=== PATIENT | female | born 1965 | race Caucasian/White ===

== ENCOUNTER 2018-10-07 13:42 | Outpatient (REF) | payer SELFPAY | END 2018-10-07 14:02 | LOC: LBN 13:42 | PROVIDERS: PCP Neurological Surgery; Visit Provider Family Medicine | DX: R41.82 Altered mental status, unspecified (principal) | CPT/HCPCS: 80048; 80164; 82140; 83605; 84443 ==

== ENCOUNTER 2018-10-07 13:45 | Emergency (ER) | payer MEDICARE, MEDICAID, SELFPAY ==
[2018-10-07] VITALS (27 sets, daily range): BP systolic 68–123; BP diastolic 55–109; PULSE 77–90; RESP 13–34; TEMP 36.8–37; O2SAT 94–100
--- NOTE | 2018-10-07 14:01 | ED.GENADUL_ITS ---
Discharge Plan Disposition Patient Disposition: SNF (LEVEL 1) [facility] Condition: Improving Discharge Details Chief Complaint: RespSymp Clinical Impression: Acute exacerbation of CHF (congestive heart failure) Primary Care Provider: ZHANG MORA I ED Provider: Shayy Atkinson [place] Meds and New Rx's Prescriptions: Continued atorvastatin 40 mg Tablet 40 mg PO DAILY RF: 0 clozapine 100 mg Tablet 100 mg PO DAILY RF: 0 levetiracetam 500 mg Tablet 500 mg PO BID RF: 0 levothyroxine 150 mcg Tablet 150 mcg PO DAILY RF: 0 esomeprazole magnesium [Nexium] 20 mg Capsule,Delayed Release(Dr/Ec) 20 mg PO DAILY RF: 0 CertaVite Senior-Antioxidant 0.4-300-250 mg-mcg-mcg Tablet 1 tab PO DAILY RF: 0 ferrous gluconate 324 mg (38 mg iron) Tablet 324 mg PO BID RF: 0 torsemide 20 mg Tablet 20 mg PO DAILY PRNRF: 0 trazodone 50 mg Tablet 50 mg PO QHS RF: 0 olanzapine 2.5 mg Tablet 2.5 mg PO BID RF: 0 metformin 1,000 mg Tablet 1,000 mg PO BID RF: 0 gabapentin 100 mg Capsule 100 mg PO TID RF: 0 nicotine 7 mg/24 hr Patch 24 Hour 1 patch transdermal DAILY RF: 0 clozapine 50 mg Tablet 250 mg PO DAILY RF: 0 Combivent Respimat 20-100 mcg/actuation Mist 1 puff INHALATION Q6H PRNRF: 0 magnesium oxide 400 mg magnesium Tablet 400 mg PO TID RF: 0 Discharge Instructions Instructions: Heart Failure (ED) Additional Instructions: Ms. Shook was given IV Lasix here, feels much improved. Please continue with the Torsemide as previously prescribed. No evidence of infection at this point. CT of head and chest x-ray without acute abnormality. If she develops fever s/chills, pain, shortness of breath, chest pain or other new/worsening symptoms please seek care urgently once again. Please follow up with primary care within the next week for reevaluation. Referrals: ZHANG MORA I [Primary Care Provider] - Discharge Data Discharge Date/Time-TO BE ENTERED AT DEPARTURE: 10/07/18 17:50 Medical Decision Making Patient is a 53-year-old female presenting today with chief complaint of lethargy and shortness of breath. Patient denies recent illness. No fevers/chills, no cough. She states she feels SOB at this time. Denies CP. Was not intubated per her report during recent admission. On exam, patient appears fatigued. She is easily arousable and appropriate with questioning about when not speaking with her, she is closing her eyes. She does report that she feels fatigued. Patient is known to be tachypneic with respiratory rate of 30. She does not sound wet on exam. Much of this seems to be upper respiratory. Patient is unable to mount a good cough, I will have respiratory evaluate her. Interestingly, when the patient awakes, she is requesting a sandwich and to have word games printed off for her to play. She is noted to have bilateral lower extremity edema. Patient states that this edema has come and gone for some time. Patient was recently admitted for intracranial bleed requiring surgical intervention. [facility] being discharged from [facility]. Patient was discharged on Keppra. Neuro exam is intact at this time. Patient is alert and oriented x4. Concern for possible CHF, pneumonia, possible worsening or change in subdural hematoma. Plan for head CT, chest XR, laboratory evaluation. Glucse checked, elevated at Spoke with radiologist who advises that there is no acute abnormality on head CT, chest XR without acute abnormality. Labs reviewed. No leukocytosis, patient is not anemic. BUN elevated at 21. Gluc ose 222. BNP elevated at 4711, no previous for comparison. TSH elevated at 4.62. Free T4 normal. Respiratory evaluated the patient, used Acapella with good results. Patient was able to cough and clear secretions. Patient was diuresed with 40 of Lasix. Patient did have furosemide ordered as needed for lower extremity edema but this was not given at [facility]. Patient is feeling much improved. Respiratory rate is down to 24. Continues to maintain her oxygen saturations. Patient is now feeling much improved and requesting discharge. Eating and drinking in the department. REviewed recent note from [facility] 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 Patient has had no known seizures, did not appear postictal. She is now walking with minimal assistance, interactive, joking and smiling. Unclear as to what may have caused this. Patient reports that she was just tired. She is diuresing well. Rhonchi has cleared. She is feeling much improved and is not SOB. Patient will be sent back to [facility] requesting discharge back to them at this time. Wants to eat and play games. She has Torsemide PRN already ordered, nursing staff will continue with this as previously prescribed. I did speak with the AMPLIFIER MECHANIC covering the [facility] at [facility]. We did discuss today's presentation. Discussed possible differential diagnoses. Patient did just report feeling fatigued and that she was not ready to get out of bed. This may have been the source of her reported lethargic state. Again, no evidence of seizure. No advancing subdural. No evidence of electrolyte abnormality. No evidence of infection. Nurse practitioner plans to place the furosemide as a daily medication instead of a PRN. Advise close follow-up. We discussed new/worsening symptoms when to seek care urgently once again. All the patient's questions and concerns were addressed and she is in agreement this plan HPI General Mode of arrival: EMS . Date/Time Provider Initiated Documentation: 10/07/18 13:47 . Limitations to Documentation: no limitations (patient lethargic but able to answer questions when prompted) . Information obtained by: patient, EMS and RN notes reviewed . HPI Narrative: Patient is a 53 year old female, brought in via EMS from [facility] with c/c of rhonchi, dyspnea and lethargy that began this AM. Patient recently admitted to [facility] after sufferring traumatic subdural hemorrhage with LOC. Patient was treated at [facility], did not require surgical intervention. 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 At this time, patient feels SOB. She denies fevers/chills. Denies cough. No CP. Denies pain anywhere at this time. Is fatigued. No GI upset. Denies RENEE. Related Data Home Medications Medication Instructions Recorded Confirmed CertaVite Senior-Antioxidant 1 tab PO DAILY 10/07/18 10/07/18 Combivent Respimat 1 puff INHALATION Q6H PRN 10/07/18 10/07/18 atorvastatin 40 mg PO DAILY 10/07/18 10/07/18 clozapine 100 mg PO DAILY 10/07/18 10/07/18 clozapine 250 mg PO DAILY 10/07/18 10/07/18 esomeprazole magnesium [Nexium] 20 mg PO DAILY 10/07/18 10/07/18 ferrous gluconate 324 mg PO BID 10/07/18 10/07/18 gabapentin 100 mg PO TID 10/07/18 10/07/18 levetiracetam 500 mg PO BID 10/07/18 10/07/18 levothyroxine 150 mcg PO DAILY 10/07/18 10/07/18 magnesium oxide 400 mg PO TID 10/07/18 10/07/18 metformin 1,000 mg PO BID 10/07/18 10/07/18 nicotine 1 patch TRANSDERMAL DAILY 10/07/18 10/07/18 olanzapine 2.5 mg PO BID 10/07/18 10/07/18 torsemide 20 mg PO DAILY PRN 10/07/18 10/07/18 trazodone 50 mg PO QHS 10/07/18 10/07/18 General Stated Complaint: RespSymp DIONE: 3 Review of Systems Constitutional Reports as per HPI, Denies chills, Reports fatigue, Denies fever(s), Denies headache(s), Reports lethargy and Denies poor appetite Eyes Denies change in vision ENT Denies dizziness and Denies headache(s) Cardiovascular Reports as per HPI, Denies chest pain, Denies chest pain at rest, Denies chest pain with activity, Denies syncope, Reports pedal edema (BLE edema), Reports dyspnea and Reports dyspnea on exertion Respiratory Reports as per HPI, Reports chest congestion, Denies cough, Denies hemoptysis, Denies pain on inspiration, Denies pain with cough, Reports dyspnea, Reports dyspnea on exertion and Denies wheezing Gastrointestinal Reports as per HPI, Denies abdominal pain, Denies diarrhea, Denies nausea and Denies vomiting Musculoskeletal Reports as per HPI and Denies back pain Integumentary/Breasts Reports as per HPI and Denies rash Neurologic Reports as per HPI, Denies dizziness, Denies syncope and Denies headache(s) Endocrine Reports fatigue Allergic/Immunologic Denies wheezing PFSH Social History Do you feel safe at home: Yes Do you feel safe in your relationship?: Yes Exam Const General: cooperative, comfortable, no acute distress, well developed and ill appearing acutely (patient is audibly rhonchorous) Nutritional Appearance: well nourished and overweight Orientation: alert, awake and oriented x3 HENMT Head: normal to inspection Ears: hearing grossly normal bilaterally Mouth: moist mucous membranes Chest Chest: normal inspection of the chest, normal palpation of entire chest wall and no crepitus Resp Effort & Inspection: normal respiratory effort, able to speak in complete sentences and no respiratory distress Auscultation: no rales, rhonchi (diffuse) and no wheezes Cardio Rate: regular rate Rhythm: regular rhythm Heart Sounds: S1 normal and S2 normal GI Inspection: normal to inspection, no edema, non-distended and obesity Palpation: soft, no hepatosplenomegaly, not firm, no guarding, not rigid and no ntender Auscultation: normal bowel sounds Back/Spine/Pelvis Back: no CVA tenderness Thoracic/Lumbar Spine: thoracic and lumbar spine normal to inspection Skin General skin exam: no rashes or lesions noted Trauma: no lacerations or abrasions Neuro General: alert, awake and oriented x3 Cognition: normal cognition Speech: speech normal Gait: normal gait Extrem General: normal to inspection, normal capillary refill, no calf tenderness and edema Laterality: bilateral (BLE 1+ nonpitting edema) Psych Appearance: grossly normal and disheveled Mental Status: mental status grossly normal Speech and Movement: speech and movement normal Course Vital Signs Temperature 37 C 10/07/18 13:41 Pulse 90 10/07/18 13:41 Respiratory Rate 30 H 10/07/18 13:41 Blood Pressure 115/73 10/07/18 13:41 Pulse Oximetry 99 10/07/18 13:41 Temperature 37 C 10/07/18 13:41 Temperature Source Skin 10/07/18 13:41 Pulse 90 10/07/18 13:41 Respiratory Rate 30 H 10/07/18 13:41 Respiratory Effort 10/07/18 13:57 Blood Pressure 115/73 10/07/18 13:41 Blood Pressure Position Sitting 10/07/18 13:41 Pulse Oximetry 99 10/07/18 13:41 Oxygen Delivery Method Room Air 10/07/18 13:41 Oxygen Flow Rate 0 10/07/18 13:41
--- NOTE | 2018-10-07 14:09 | DI.CT_ITS ---
SYMPTOMS/DIAGNOSIS: LETHARGIC, RECENT TRAUMATIC BRAIN INJURY CRANIAL CT: A noncontrast enhanced examination was performed. Moderate atrophic changes are demonstrated. There are regions of diminished absorption in the frontoparietal white matter consistent with small vessel disease. There is no evidence of an intra/extra-axial hemorrhage or mass. The ventricles are intact. There is no evidence of a skull fracture. Mucoperiosteal thickening is noted in the left maxillary antrum. The right maxillary antrum, ethmoid and frontal sinus as visualized appear intact. There is no evidence of a mastoid effusion. SUMMARY: There is no evidence of an acute intracranial abnormality. Incidental note is made of left maxillary sinusitis.
[2018-10-07 14:12] LABS: Abs Immature Grans 0.09 k/cumm (0.0-0.09); Absolute Basophil Count 0.08 k/cumm (0.0-0.2); Absolute Lymphocyte Count 2.62 k/cumm (1.2-3.4); Absolute Monocyte Count 0.68 k/cumm (0.11-0.7); Absolute Neutrophil Count 3.95 k/cumm (1.2-6.7); Basophils % 1.1; Immature Grans % 1.2; Lymphocytes % 35.3; Mean Corp. HGB Concentration 33.3 g/dL (32.0-36.0); Mean Corpuscular Hemoglobin 32.3 pg (27.0-33.0); Mean Corpuscular Volume 96.8 fL (80-95); Mean Platelet Volume 10.1 fL (8.0-11.0); Monocytes % 9.2; Neutrophils % 53.2; Platelet Count 140 x1000/uL (130-400); RBC 3.72 m/cumm (4.00-5.20); RBC Distribution Width 13.8 % (11.7-14.6); White Blood Cell Count 7.42 k/cumm (4.4-10.8)
[2018-10-07] MEDS: Furosemide 40 MG/4 ML VIAL IVP (14:14)
--- NOTE | 2018-10-07 14:32 | RESPIRATORY ---
Bs coarse upper airways but clear and very diminished bilat bases. Viberpep started x 5 breaths x 3 sets with good understanding. Weak non productive cough. RR 28-31, Sats on room air was 97%
[2018-10-07 14:39] LABS: ALT 25 U/L (12-78); AST 16 U/L (15-37); Albumin 2.8 g/dL (3.4-5.0); Alkaline Phosphatase 61 U/L (46-116); Anion Gap 9.9 mmol/L (3-11); BUN 21 mg/dL (7-18); Bilirubin, Total 0.2 mg/dL (0.2-1.0); CO2 27.1 mmol/L (21.0-32.0); CREATININE 1.01 mg/dL (0.55-1.02); Calcium 9.2 mg/dL (8.5-10.1); Chloride 104 mmol/L (98-107); Estimated GFR 57.34 (mL/min/1.73m2); Glucose 222 mg/dL (70-100); NT-proBNP 4711 pg/mL; Potassium 4.7 mmol/L (3.5-5.1); Sodium 141 mmol/L (136-145); Total Protein 7.2 g/dL (6.4-8.2)
[2018-10-07 15:01] LABS: TSH 4.62 uIU/mL (0.36-3.74); VALPROIC ACID 77.6 ug/mL (50-100)
--- NOTE | 2018-10-07 15:21 | DI.RAD_ITS ---
SYMPTOMS/DIAGNOSIS: SHORTNESS OF BREATH AP AND LATERAL UPRIGHT CHEST: The heart is normal in size. The lungs are clear. The mediastinal structures and pleura appear intact. SUMMARY: Normal chest. No evidence of acute cardiopulmonary disease.
[2018-10-07 15:46] LABS: FREE T4 1.27 ng/dL (0.76-1.46)
== END 2018-10-07 17:50 | disposition skilled nursing facility (03) ==
PROVIDERS: Emergency Provider Physician Assistant; PCP Neurological Surgery
DX: I50.9 Heart failure, unspecified (principal)
CPT/HCPCS: 36415; 36416; 80053; 82962; 93005; 96374; 99285; 70450; 71046; 80164; 83880; 84439; 84443; 85025; 93010; J1940

== ENCOUNTER 2018-10-11 11:33 | Outpatient (REF) | payer MEDICARE, MEDICAID, SELFPAY ==
[2018-10-11 13:53] LABS: Anion Gap 10.1 mmol/L (3-11); BUN 17 mg/dL (7-18); CO2 28.9 mmol/L (21.0-32.0); CREATININE 1.09 mg/dL (0.55-1.02); Calcium 8.1 mg/dL (8.5-10.1); Chloride 103 mmol/L (98-107); Estimated GFR 52.51 (mL/min/1.73m2); Glucose 338 mg/dL (70-100); NT-proBNP 1113 pg/mL; Potassium 4.2 mmol/L (3.5-5.1); Sodium 142 mmol/L (136-145)
== END 2018-10-11 11:53 ==
LOC: LBN 11:33
PROVIDERS: PCP Neurological Surgery; Visit Provider Nurse Practitioner Gerontology
DX: I50.9 Heart failure, unspecified (principal)
CPT/HCPCS: 80048; 83880

== ENCOUNTER 2018-11-01 01:13 | Outpatient (CLI) | payer MEDICARE, MEDICAID, SELFPAY ==
--- NOTE | 2018-11-01 14:00 | DI.CT_ITS ---
SYMPTOM/DIAGNOSIS: F/U SUBDURAL HEMATOMA NONCONTRAST HEAD CT: Comparison is made with 10/07/18. Comparison is made with 09/21/18 from [facility] and 10/07/18 from [facility]. There is no evidence of a recurrent subdural hematoma. Atrophy and white matter changes and small vessel disease are again noted. The ventricular size is unchanged. No acute infarct or intraparenchymal hemorrhage or skull fracture is seen. There is again noted to be severe left maxillary sinus disease. IMPRESSION: No evidence of subdural hematoma or other acute abnormality.
== END 2018-11-01 01:33 ==
PROVIDERS: PCP Neurological Surgery; Visit Provider Physician Assistant Surgical
DX: S06.5X9D Traumatic subdural hemorrhage with loss of consciousness of unspecified duration, subsequent encounter (principal); R90.82 White matter disease, unspecified; J32.0 Chronic maxillary sinusitis; G31.89 Other specified degenerative diseases of nervous system
CPT/HCPCS: 70450

== ENCOUNTER 2018-11-16 14:17 | Outpatient (REF) | payer MEDICARE, MEDICAID, SELFPAY ==
[2018-11-16 15:06] LABS: Abs Immature Grans 0.03 k/cumm (0.0-0.09); Absolute Basophil Count 0.04 k/cumm (0.0-0.2); Absolute Eosinophil Count 0.02 k/cumm (0.0-0.7); Absolute Lymphocyte Count 3.34 k/cumm (1.2-3.4); Absolute Monocyte Count 0.53 k/cumm (0.11-0.7); Absolute Neutrophil Count 3.18 k/cumm (1.2-6.7); Basophils % 0.6; Eosinophils % 0.3; HCT 38.1 % (36.0-46.0); HGB 12.7 g/dL (12.0-15.5); Immature Grans % 0.4; Lymphocytes % 46.8; Mean Corp. HGB Concentration 33.3 g/dL (32.0-36.0); Mean Corpuscular Hemoglobin 32.1 pg (27.0-33.0); Mean Corpuscular Volume 96.2 fL (80-95); Mean Platelet Volume 11.6 fL (8.0-11.0); Monocytes % 7.4; Neutrophils % 44.5; Platelet Count 153 x1000/uL (130-400); RBC 3.96 m/cumm (4.00-5.20); RBC Distribution Width 13.1 % (11.7-14.6); White Blood Cell Count 7.14 k/cumm (4.4-10.8)
== END 2018-11-16 14:37 ==
LOC: LBN 14:17
PROVIDERS: PCP Neurological Surgery; Visit Provider Nurse Practitioner Gerontology
DX: I50.9 Heart failure, unspecified (principal)
CPT/HCPCS: 85025

== ENCOUNTER 2018-12-30 09:34 | Outpatient (REF) | payer MEDICARE, MEDICAID, SELFPAY ==
[2018-12-30 12:07] LABS: Abs Immature Grans 0.12 k/cumm (0.0-0.09); Absolute Basophil Count 0.04 k/cumm (0.0-0.2); Absolute Lymphocyte Count 3.43 k/cumm (1.2-3.4); Absolute Monocyte Count 0.62 k/cumm (0.11-0.7); Absolute Neutrophil Count 2.52 k/cumm (1.2-6.7); Basophils % 0.6; HCT 37.1 % (36.0-46.0); HGB 11.9 g/dL (12.0-15.5); Immature Grans % 1.8; Mean Corp. HGB Concentration 32.1 g/dL (32.0-36.0); Mean Corpuscular Volume 99.7 fL (80-95); Mean Platelet Volume 11.6 fL (8.0-11.0); Monocytes % 9.2; Neutrophils % 37.4; Platelet Count 226 x1000/uL (130-400); RBC 3.72 m/cumm (4.00-5.20); RBC Distribution Width 14.1 % (11.7-14.6); White Blood Cell Count 6.73 k/cumm (4.4-10.8)
[2018-12-30 13:56] LABS: ALT 39 U/L (14-59); AST 35 U/L (15-37); Alkaline Phosphatase 61 U/L (46-116); Anion Gap 9.3 mmol/L (3-11); BUN 36 mg/dL (7-18); Bilirubin, Total 0.4 mg/dL (0.2-1.0); CO2 31.7 mmol/L (21.0-32.0); CREATININE 1.08 mg/dL (0.55-1.02); Chloride 102 mmol/L (98-107); Estimated GFR 53.07 (mL/min/1.73m2); Glucose 111 mg/dL (70-100); Magnesium 2.1 mg/dL (1.8-2.4); Potassium 4.2 mmol/L (3.5-5.1); Sodium 143 mmol/L (136-145); Total Protein 6.8 g/dL (6.4-8.2)
[2018-12-30 14:03] LABS: Hemoglobin A1C 8.3 % (4.5-6.2)
== END 2018-12-30 09:54 ==
LOC: LBN 09:34
PROVIDERS: PCP Neurological Surgery; Visit Provider Family Medicine
DX: E11.9 Type 2 diabetes mellitus without complications (principal)
CPT/HCPCS: 80053; 83036; 83735; 85025

== ENCOUNTER 2019-02-06 14:03 | Emergency (ER) | payer MEDICARE, MEDICAID, SELFPAY ==
[2019-02-06] VITALS (15 sets, daily range): BP systolic 106–146; BP diastolic 57–71; PULSE 88–98; RESP 20–28; TEMP 36.2; O2SAT 95–99
--- NOTE | 2019-02-06 14:07 | W.ED.GENAD ---
Discharge Plan Disposition Patient Disposition: HOME Condition: Improving Discharge Details Chief Complaint: HeadInjury Clinical Impression: Fall at halfway, Closed head injury, Abrasion of elbow, right, Neck pain, Back pain Primary Care Provider: Johnnie Clements I ED Provider: Kayla Bedolla Home Meds and New Rx's Prescriptions: New ibuprofen 600 mg tablet 600 mg PO Q6H PRN (Reason: pain) Qty: 20 RF: 0 Continued atorvastatin 40 mg Tablet 40 mg PO DAILY RF: 0 clozapine 100 mg Tablet 100 mg PO DAILY RF: 0 levetiracetam 500 mg Tablet 500 mg PO BID RF: 0 esomeprazole magnesium [Nexium] 20 mg Capsule,Delayed Release(Dr/Ec) 20 mg PO DAILY RF: 0 CertaVite Senior-Antioxidant 0.4-300-250 mg-mcg-mcg Tablet 1 tab PO DAILY RF: 0 ferrous gluconate 324 mg (38 mg iron) Tablet 324 mg PO BID RF: 0 torsemide 20 mg Tablet 40 mg PO DAILY PRNRF: 0 olanzapine 2.5 mg Tablet 2.5 mg PO BID RF: 0 metformin 1,000 mg Tablet 1,000 mg PO BID RF: 0 nicotine 7 mg/24 hr Patch 24 Hour 1 patch transdermal DAILY RF: 0 Combivent Respimat 20-100 mcg/actuation Mist 1 puff INHALATION Q6H PRNRF: 0 magnesium oxide 400 mg magnesium Tablet 400 mg PO TID RF: 0 levothyroxine 175 mcg Capsule 175 mcg PO DAILY AM RF: 0 Symbicort 160-4.5 mcg/actuation Hfa Aerosol Inhaler 2 puff INHALATION BID RF: 0 olanzapine 5 mg Tablet 5 mg PO QAM RF: 0 Lantus Solostar U-100 Insulin 100 unit/mL (3 mL) Insulin Pen 20 unit SUBCUT HS RF: 0 cholecalciferol (vitamin D3) [Vitamin D3] 50 mcg (2,000 unit) Capsule 50,000 unit PO DAILY RF: 0 nitroglycerin 0.4 mg Tablet, Sublingual 1 mg sublingual PRN PRNRF: 0 Discharge Instructions Instructions: Head Injury (ED), Contusion in Adults (ED), Neck Pain (ED) Additional Instructions: Take ibuprofen as needed and directed for pain. Apply ice to the affected area several times daily for 20 minutes at a time. All of your CAT scans were negative for any acute traumatic injuries. The CAT scan of your abdomen incidentally noted a left kidney stone with some narrowing of the ureter which is the tube that drains urine from the kidney to the bladder. You can follow-up with a urologist for further evaluation of this. Follow-up with the primary care doctor within the next week for reevaluation. Return to the emergency department if you develop any worsening or new concerning symptoms. Referrals: Joseph Alvarado MD [ [facility] STAFF PHYSICIAN] - Discharge Data Discharge Date/Time-TO BE ENTERED AT DEPARTURE: 02/06/19 17:18 Discharge Physician: Kayla Bedolla Medical Decision Making 53-year-old female with a history of COPD, hypothyroidism, diabetes, schizophrenia and subdural hematoma presents from the [facility] post fall with headache, neck pain, back and hip pain. Patient stated that she was attempting to transfer into a chair and misjudged her landing and fell hitting her back and head on the ground. Denies LOC or vomiting. She has diffuse positive review of systems. Main complaint is headache, neck pain, back pain, hip pain and right elbow pain. She has a superficial medial elbow abrasion otherwise no evidence of trauma on exam. Lungs clear. Abdomen soft and nondistended without rigidity or guarding. Patient complains of diffuse body pain. Moving all extremities without evidence of deformity. CT head/cervical spine/test/abdomen/pelvis/T and L-spine obtained and all negative for acute findings. CT abdomen noted left perinephric edema, left renal calculus and mild left hydronephrosis and hydroureter. Patient has been urinating normally. Patient has been ambulatory around the ED and admits to improvement in pain after ibuprofen. She is smiling and pleasant and talkative. Given referral for urology if she develops any change in urinary symptoms or flank or back pain. Requested a prescription for ibuprofen for the [place]. Advised to apply ice to the affected areas as needed. Allergy list notes an allergy to Tylenol but she states she has been able to tolerate this. She is advised to alternate Tylenol Motrin, follow-up with primary care doctor and return here with any concerns. Medical Records Medical records reviewed: Yes I reviewed the patient's medical records. Imaging Data Radiologic Study: Radiologist's impression: XR Right Elbow Exam date and time: 02/06/2019 3:09 PM Age: 53 years old Clinical history: Other: S/P fall, R/O acute fracture TECHNIQUE: Imaging protocol: XR Right elbow. Views: 3 or more views. COMPARISON: No relevant prior studies available. FINDINGS: Bones/joints: Normal. Soft tissues: Normal. IMPRESSION: No evidence for acute posttraumatic abnormality. CT Head Without Contrast Exam date and time: 02/06/2019 2:45 PM Age: 53 years old Clinical history: Other: S/P fall, R/O acute fracture TECHNIQUE: Imaging protocol: Computed tomography of the head without contrast. Radiation optimization: All CT scans at this facility use at least one of these dose optimization techniques: automated exposure control; mA and/or kV adjustment per patient size (includes targeted exams where dose is matched to clinical indication); or iterative reconstruction. COMPARISON: CT HEAD WO 11/01/2018 2:00 PM FINDINGS: Brain: No evidence for acute intracranial hemorrhage. Cerebral volume loss noted. Scattered areas of decreased attenuation in the deep periventricular white matter consistent with small vessel ischemic change. Ventricles: Normal. No ventriculomegaly. Bones/joints: Unremarkable. No acute fracture. Sinuses: There is dense opacification of the left maxillary and anterior left ethmoid sinus with left frontal sinus involvement and air-fluid formation. These sinus changes are new since previous exam. Mastoid air cells: Visualized mastoid air cells are well aerated. Soft tissues: Unremarkable. IMPRESSION: Senescent changes noted. No acute intracranial abnormality. CT Cervical Spine Without Contrast Exam date and time: 02/06/2019 2:45 PM Age: 53 years old Clinical history: Other: S/P fall, R/O acute fracture TECHNIQUE: Imaging protocol: Computed tomography images of the cervical spine without contrast. COMPARISON: CT HEAD WO 11/01/2018 2:00 PM FINDINGS: Vertebrae: No acute fracture. Normal alignment. Discs/Spinal canal/Neural foramina: No spinal stenosis. No neural foraminal narrowing. Soft tissues: Unremarkable. Lungs: Lung apices are normal. Vasculature: Bilateral calcified carotid plaque. IMPRESSION: No evidence for acute posttraumatic abnormality. CT Chest Without Contrast Exam date and time: 02/06/2019 2:54 PM Age: 53 years old Clinical history: Other: S/P fall, R/O acute abnormality, fracture, assess for thoracic compression/hip fracture TECHNIQUE: Imaging protocol: Computed tomography of the chest without contrast. COMPARISON: No relevant prior studies available. FINDINGS: Lungs: There is minimal lingular atelectasis. Pleural space: Unremarkable. No pneumothorax. No pleural effusion. Heart: Coronary artery calcification/stents noted. Aorta: Moderate atherosclerotic change present in the vasculature. Lymph nodes: Unremarkable. No enlarged lymph nodes. Bones/joints: Unremarkable. No acute fracture. Soft tissues: Unremarkable. IMPRESSION: No evidence for acute posttraumatic abnormality. CT Abdomen And Pelvis Without Contrast Exam date and time: 02/06/2019 2:54 PM Age: 53 years old Clinical history: Other: S/P fall, R/O acute abnormality, fracture, assess for thoracic compression/hip fracture TECHNIQUE: Imaging protocol: Computed tomography of the abdomen and pelvis without contrast. Radiation optimization: All CT scans at this facility use at least one of these dose optimization techniques: automated exposure control; mA and/or kV adjustment per patient size (includes targeted exams where dose is matched to clinical indication); or iterative reconstruction. COMPARISON: No relevant prior studies available. FINDINGS: Liver: Normal. No mass. Gallbladder and bile ducts: Gallbladder not well distended. Pancreas: Normal. No ductal dilation. Spleen: Normal. No splenomegaly. Adrenals: Normal. No mass. Kidneys and ureters: Moderate right renal atrophy. There is left perinephric edema, nonobstructing left renal calculus and mild left hydronephrosis and hydroureter. There is a ureteral transition at the iliac vessel crossing with mixed attenuation lesion series 3 image 93 measuring 3.1 cm. This appears to represent the left ovary. Stomach and bowel: Unremarkable. No obstruction. No mucosal thickening. Appendix: No evidence of appendicitis. Intraperitoneal space: Unremarkable. No free air. No significant fluid collection. Vasculature: Unremarkable. No abdominal aortic aneurysm. Lymph nodes: Unremarkable. No enlarged lymph nodes. Bladder: Unremarkable as visualized. Reproductive: See Kidneys And Ureters Finding. Bones/joints: There is bilateral spondylolysis L5-S1 with very minimal spondylolisthesis. Soft tissues: Unremarkable. IMPRESSION: 1. No evidence for acute posttraumatic abnormality. 2. Concern for distal left ureteral obstruction, uncertain etiology. CT Thoracic Spine Without Contrast Exam date and time: 02/06/2019 2:54 PM Age: 53 years old Clinical history: Other: Assess for thoracic compression/hip fracture; Additional info: S/P fall, R/O acute abnormality, fracture, assess for thoracic compression/hip fracture TECHNIQUE: Imaging protocol: Computed tomography images of the thoracic spine without contrast. COMPARISON: No relevant prior studies available. FINDINGS: Vertebrae: Mild spondylosis. No evidence for fracture. Vertebral body height appears well preserved. There is moderate anterior hypertrophic spurring. Discs/Spinal canal/Neural foramina: No spinal stenosis. Soft tissues: Unremarkable. IMPRESSION: Spondylosis without evidence for fracture. CT Lumbar Spine Without Contrast Exam date and time: 02/06/2019 2:54 PM Age: 53 years old Clinical history: Other: Assess for thoracic compression/hip fracture; Additional info: S/P fall, R/O acute abnormality, fracture, assess for thoracic compression/hip fracture TECHNIQUE: Imaging protocol: Computed tomography images of the lumbar spine without contrast. COMPARISON: No relevant prior studies available. FINDINGS: Vertebrae: There is bilateral spondylolysis at L5-S1 with very minimal spondylolisthesis. No evidence for acute posttraumatic abnormality. Discs/Spinal canal/Neural foramina: No spinal stenosis. No neural foraminal narrowing. Vasculature: Severe atherosclerotic changes noted in the vasculature. Soft tissues: Unremarkable. IMPRESSION: No evidence for acute posttraumatic abnormality. HPI General Mode of arrival: EMS. Date/Time Provider Initiated Documentation: 02/06/19 14:06. Limitations to Documentation: no limitations. Information obtained by: patient. History of Present Illness 53 year old F presents to the emergency department with the chief complaint of fall at halfway, Quality is described as aching, Patient started experiencing this hour(s) and it has been constant. No relieving factors improve symptom(s), No exacerbating factors reported . Patient notes headaches; denies confusion, chest pain, cough, diaphoresis, fever/chills, loss of appetite, malaise, nausea/vomiting, rash, seizure, shortness of breath, syncope and weakness. Patient did receive the following treatments prior to arrival, none Related Data Home Medications Medication Instructions Recorded Confirmed CertaVite Senior-Antioxidant 1 tab PO DAILY 10/07/18 02/06/19 Combivent Respimat 1 puff INHALATION Q6H PRN 10/07/18 02/06/19 atorvastatin 40 mg PO DAILY 10/07/18 02/06/19 clozapine 100 mg PO DAILY 10/07/18 02/06/19 esomeprazole magnesium [Nexium] 20 mg PO DAILY 10/07/18 02/06/19 ferrous gluconate 324 mg PO BID 10/07/18 02/06/19 levetiracetam 500 mg PO BID 10/07/18 02/06/19 magnesium oxide 400 mg PO TID 10/07/18 02/06/19 metformin 1,000 mg PO BID 10/07/18 02/06/19 nicotine 1 patch TRANSDERMAL DAILY 10/07/18 10/07/18 olanzapine 2.5 mg PO BID 10/07/18 02/06/19 torsemide 40 mg PO DAILY PRN 10/07/18 02/06/19 Lantus Solostar U-100 Insulin 20 unit SUBCUT HS 02/06/19 02/06/19 Symbicort 2 puff INHALATION BID 02/06/19 02/06/19 cholecalciferol (vitamin D3) 50,000 unit PO DAILY 02/06/19 02/06/19 [Vitamin D3] ibuprofen 600 mg PO Q6H PRN #20 tab 02/06/19 levothyroxine 175 mcg PO DAILY AM 02/06/19 02/06/19 nitroglycerin 1 mg SUBLINGUAL PRN PRN 02/06/19 02/06/19 olanzapine 5 mg PO QAM 02/06/19 02/06/19 Previous Rx's Medication Instructions Recorded ibuprofen 600 mg PO Q6H PRN #20 tab 02/06/19 Allergies Allergy/AdvReac Type Severity Reaction Status Date / Time acetaminophen [From Percocet] Allergy Unverified 01/13/19 13:10 lithium Allergy Unverified 01/13/19 13:10 oxycodone [From OxyContin] Allergy Unverified 01/13/19 13:10 Penicillins Allergy Unverified 01/13/19 13:10 pioglitazone Allergy Unverified 01/13/19 13:10 Sulfa (Sulfonamide Allergy Unverified 01/13/19 13:10 Antibiotics) tramadol Allergy Unverified 01/13/19 13:10 General DIONE: 3 Review of Systems All systems reviewed & are unremarkable except as noted in HPI and below Constitutional Constitutional: Reports as per HPI, Denies chills, Denies fever(s) and Reports headache(s) Eyes Eyes: Denies blurry vision ENT Ears, Nose, Mouth, and Throat: Denies dizziness, Reports headache(s), Reports neck pain, Denies sore throat and Denies throat swelling Cardiovascular Cardiovascular: Denies chest pain and Denies dyspnea Respiratory Respiratory: Denies cough and Denies dyspnea Gastrointestinal Gastrointestinal: Denies abdominal pain, Denies diarrhea and Denies vomiting Genitourinary Genitourinary: Denies hematuria and Denies dysuria Musculoskeletal Musculoskeletal: Reports back pain, Reports neck pain and Denies numbness Integumentary/Breasts Skin/Breast: Denies lesions and Denies rash Neurologic Neurologic: Denies dizziness, Reports headache(s), Denies focal weakness and Denies numbness Allergic/Immunologic Allergic/Immunologic: Denies throat swelling [facility] Medical History PATIENCE (acute kidney injury) (Acute) Altered gait (Acute) CAP (community acquired pneumonia) (Acute) Cystitis (Acute) Delirium (Acute) Falls frequently (Acute) GERD (gastroesophageal reflux disease) (Chronic) Heart murmur (Acute) Left bundle branch block (Acute) Muscle weakness (Acute) Pancreatitis (Chronic) Schizoaffective disorder (Acute) Surgical History H/O abdominal surgery (Acute) S/P thoracotomy (Acute) Social History Smoking/Tobacco Use Status: Former Tobacco Use Alcohol Intake: former Drug use: Never Do you feel safe at home: Yes Do you feel safe in your relationship?: Yes Exam Const General: cooperative and no acute distress Orientation: alert, awake and oriented x3 HENMT Head: normal to inspection Ears: hearing grossly normal bilaterally, external ears normal and TM's normal bilaterally General nose exam: external nose normal Face and sinus: normal facial exam Mouth: oral mucosae normal Teeth and gingiva: dentition normal Throat: posterior oropharynx normal Eyes General: appearance normal, both eyes and all related structures Eyelids: eyelids normal Pupils: PERRL EOM: EOM intact bilaterally Neck Neck: normal visual inspection Lymphatic: no lymphadenopathy noted Chest Chest: normal inspection of the chest Resp Effort & Inspection: normal respiratory effort and able to speak in complete sentences Auscultation: clear to auscultation bilaterally Cardio Rate: regular rate Rhythm: regular rhythm GI Inspection: normal to inspection Palpation: soft, not firm, no guarding, no hepatosplenomegaly, no masses and nontender Auscultation: normal bowel sounds Back/Spine/Pelvis Back: no CVA tenderness Cervical Spine: cervical spinal tenderness Thoracic/Lumbar Spine: thoracic spinal tenderness and lumbar spinal tenderness Pelvis: no pain with anterior-posterior compression Skin General skin exam: no rashes or lesions noted Neuro General: alert, awake, moves all extremities and no focal motor deficits Cranial Nerves: CN's II-XI intact bilaterally Cognition: normal cognition Speech: speech normal Gait: normal gait Motor: muscle tone normal throughout and strength 5/5 throughout Sensory Exam: no sensory deficits noted Extrem General: normal to inspection, full ROM and normal capillary refill Other: Superficial abrasion noted to right medial elbow and pain with range of motion of right elbow. No bony deformity. Pain in bilateral hips with range of motion. No obvious deformities noted. No pain with range of motion left upper extremity. Psych Appearance: grossly normal Mental Status: mental status grossly normal Speech and Movement: speech and movement normal Affect: normal affect Thought Process: normal
--- NOTE | 2019-02-06 14:43 | DI.CT_ITS ---
EXAM: CT HEAD CERVICAL SPINE WO CLINICAL HISTORY: s/p fall, r/o acute fracture TECHNIQUE: The exam was performed according to the usual protocol without contrast. COMPARISON: CT HEAD WO from 11/01/2018 FINDINGS: CT head: There is cerebral atrophy present. Areas of decreased attenuation are seen in the white matter most consistent with small vessel ischemic disease. No intracranial hemorrhage, midline shift or mass eff ect is present. Ventricles are intact. The basilar cisterns are patent. There has been worsening of the high-density material accumulation in the left maxillary sinus since the prior examination. The re is opacification of several left ethmoid air cells and the left frontal sinus. The remaining visu alized paranasal sinuses are clear as are the mastoid air cells. No evidence of a calvarial fracture is present. There is thickening of the wall of the left maxillary sinus suggesting chronic sinusitis . CT cervical spine: There is patient motion artifact. No acute fracture or subluxation is seen in the cervical spine. T he soft tissues are unremarkable. The lung apices are clear. There is atherosclerosis present. IMPRESSION: 1. No acute intracranial process. 2. Chronic sinusitis. 3. No acute fracture or subluxation in the cervical spine.
--- NOTE | 2019-02-06 14:55 | DI.CT_ITS ---
EXAM: CT CHEST/ABD/PEL WO, CT reconstructions of the thoracic and lumbar spine CLINICAL HISTORY: s/p fall, r/o acute abnormality, fracture TECHNIQUE: The exam was performed according to the usual protocol without contrast. COMPARISON: No exams were available for comparison FINDINGS: CT chest: The lack of IV contrast does limit evaluation of the mediastinum. There is atherosclerosis of the th oracic aorta. No aneurysmal dilatation is seen. The heart size is within normal limits. Coronary a rtery calcifications or stents are present. No significant pericardial effusion is present. No sign ificant thoracic adenopathy is seen. No pleural effusion or pneumothorax is present. The esophagus is unremarkable. The lungs are clear except for minimal atelectasis in the left lingula and left low er lobe. The tracheobronchial tree is unremarkable. CT reconstructions of the thoracic spine: There are degenerative changes seen throughout the thoracic spine. No acute fractures or subluxation s are present. The soft tissues are unremarkable. CT of the abdomen and pelvis: The lack of IV contrast does limit evaluation of the abdominal and pelvic organs. The unenhanced joelle er, spleen, pancreas, gallbladder, bile ducts and adrenal glands are unremarkable. There is signific ant right renal atrophy. There is compensatory hypertrophy of the left kidney. Nonobstructing stone s are seen in the left kidney. There is dilatation of the left renal collecting system to the level of the iliac crest. No definite obstructing stone is present. The urinary bladder is intact. The r eproductive organs are unremarkable. There is a large amount of stool throughout the colon suggesting constipation. No evidence of obstruction is seen. There is a normal appendix present. The abdominal aorta is of normal caliber. No aneurysmal dilatation is seen. No significant abdomina l or pelvic adenopathy, ascites or pneumoperitoneum is present. CT reconstructions of the lumbar spine: There are degenerative changes seen in the lumbar spine. There is L5 spondylolysis with minimal spon dylolisthesis of L5 on S1. No acute fracture or subluxation is seen. IMPRESSION: 1. No acute pulmonary process. 2. No acute fractures or subluxations in the thoracic spine. 3. No acute fractures or subluxations in the lumbar spine. 4. No evidence of acute abdominal or pelvic abnormality. Examination is limited due to lack of IV co ntrast. 5. Findings suspicious for left ureteral obstruction of uncertain etiology. Follow-up as clinically a ppropriate.
--- NOTE | 2019-02-06 15:03 | DI.RAD_ITS ---
EXAM: XR ELBOW RT COMPLETE INDICATION: s/p fall, r/o acute fracture. COMPARISON: No exams were available for comparison TECHNIQUE: 2D digital imaging was performed. FINDINGS: No acute fracture or dislocation is present. The soft tissues are unremarkable. There is a well cor ticated osseous density adjacent to the medial epicondyle. This likely reflects old injury. IMPRESSION: No acute fracture or dislocation.
--- NOTE | 2019-02-06 15:16 | DI.VRAD_ITS ---
PROCEDURE INFORMATION: Exam: XR Right Elbow Exam date and time: 02/06/2019 3:09 PM Age: 53 years old Clinical history: Other: S/P fall, R/O acute fracture TECHNIQUE: Imaging protocol: XR Right elbow. Views: 3 or more views. COMPARISON: No relevant prior studies available. FINDINGS: Bones/joints: Normal. Soft tissues: Normal. IMPRESSION: No evidence for acute posttraumatic abnormality. COMMENT: Preliminary interpretation is based on receipt of 3 image(s). A final report will be issued subsequently. Dictated and Authenticated by: Estephanie Salgado MD. Ordering:JOSE Garza MD
--- NOTE | 2019-02-06 15:20 | DI.VRAD_ITS ---
PROCEDURE INFORMATION: Exam: CT Head Without Contrast Exam date and time: 02/06/2019 2:45 PM Age: 53 years old Clinical history: Other: S/P fall, R/O acute fracture TECHNIQUE: Imaging protocol: Computed tomography of the head without contrast. Radiation optimization: All CT scans at this facility use at least one of these dose optimization techniques: automated exposure control; mA and/or kV adjustment per patient size (includes targeted exams where dose is matched to clinical indication); or iterative reconstruction. COMPARISON: CT HEAD WO 11/01/2018 2:00 PM FINDINGS: Brain: No evidence for acute intracranial hemorrhage. Cerebral volume loss noted. Scattered areas of decreased attenuation in the deep periventricular white matter consistent with small vessel ischemic change. Ventricles: Normal. No ventriculomegaly. Bones/joints: Unremarkable. No acute fracture. Sinuses: There is dense opacification of the left maxillary and anterior left ethmoid sinus with left frontal sinus involvement and air-fluid formation. These sinus changes are new since previous exam. Mastoid air cells: Visualized mastoid air cells are well aerated. Soft tissues: Unremarkable. IMPRESSION: Senescent changes noted. No acute intracranial abnormality. PROCEDURE INFORMATION: Exam: CT Cervical Spine Without Contrast Exam date and time: 02/06/2019 2:45 PM Age: 53 years old Clinical history: Other: S/P fall, R/O acute fracture TECHNIQUE: Imaging protocol: Computed tomography images of the cervical spine without contrast. COMPARISON: CT HEAD WO 11/01/2018 2:00 PM FINDINGS: Vertebrae: No acute fracture. Normal alignment. Discs/Spinal canal/Neural foramina: No spinal stenosis. No neural foraminal narrowing. Soft tissues: Unremarkable. Lungs: Lung apices are normal. Vasculature: Bilateral calcified carotid plaque. IMPRESSION: No evidence for acute posttraumatic abnormality. COMMENT: Preliminary interpretation is based on receipt of 2192 image(s). A final report will be issued subsequently. Dictated and Authenticated by: Estephanie Salgado MD. Ordering:JOSE Garza MD
--- NOTE | 2019-02-06 15:31 | DI.VRAD_ITS ---
PROCEDURE INFORMATION: Exam: CT Chest Without Contrast Exam date and time: 02/06/2019 2:54 PM Age: 53 years old Clinical history: Other: S/P fall, R/O acute abnormality, fracture, assess for thoracic compression/hip fracture TECHNIQUE: Imaging protocol: Computed tomography of the chest without contrast. COMPARISON: No relevant prior studies available. FINDINGS: Lungs: There is minimal lingular atelectasis. Pleural space: Unremarkable. No pneumothorax. No pleural effusion. Heart: Coronary artery calcification/stents noted. Aorta: Moderate atherosclerotic change present in the vasculature. Lymph nodes: Unremarkable. No enlarged lymph nodes. Bones/joints: Unremarkable. No acute fracture. Soft tissues: Unremarkable. IMPRESSION: No evidence for acute posttraumatic abnormality. PROCEDURE INFORMATION: Exam: CT Abdomen And Pelvis Without Contrast Exam date and time: 02/06/2019 2:54 PM Age: 53 years old Clinical history: Other: S/P fall, R/O acute abnormality, fracture, assess for thoracic compression/hip fracture TECHNIQUE: Imaging protocol: Computed tomography of the abdomen and pelvis without contrast. Radiation optimization: All CT scans at this facility use at least one of these dose optimization techniques: automated exposure control; mA and/or kV adjustment per patient size (includes targeted exams where dose is matched to clinical indication); or iterative reconstruction. COMPARISON: No relevant prior studies available. FINDINGS: Liver: Normal. No mass. Gallbladder and bile ducts: Gallbladder not well distended. Pancreas: Normal. No ductal dilation. Spleen: Normal. No splenomegaly. Adrenals: Normal. No mass. Kidneys and ureters: Moderate right renal atrophy. There is left perinephric edema, nonobstructing left renal calculus and mild left hydronephrosis and hydroureter. There is a ureteral transition at the iliac vessel crossing with mixed attenuation lesion series 3 image 93 measuring 3.1 cm. This appears to represent the left ovary. Stomach and bowel: Unremarkable. No obstruction. No mucosal thickening. Appendix: No evidence of appendicitis. Intraperitoneal space: Unremarkable. No free air. No significant fluid collection. Vasculature: Unremarkable. No abdominal aortic aneurysm. Lymph nodes: Unremarkable. No enlarged lymph nodes. Bladder: Unremarkable as visualized. Reproductive: See Kidneys And Ureters Finding. Bones/joints: There is bilateral spondylolysis L5-S1 with very minimal spondylolisthesis. Soft tissues: Unremarkable. IMPRESSION: 1. No evidence for acute posttraumatic abnormality. 2. Concern for distal left ureteral obstruction, uncertain etiology. COMMENT: Preliminary interpretation is based on receipt of 2305 image(s). A final report will be issued subsequently. Dictated and Authenticated by: Estephanie Salgado MD. Ordering:JOSE Garza MD
--- NOTE | 2019-02-06 15:34 | DI.VRAD_ITS ---
PROCEDURE INFORMATION: Exam: CT Thoracic Spine Without Contrast Exam date and time: 02/06/2019 2:54 PM Age: 53 years old Clinical history: Other: Assess for thoracic compression/hip fracture; Additional info: S/P fall, R/O acute abnormality, fracture, assess for thoracic compression/hip fracture TECHNIQUE: Imaging protocol: Computed tomography images of the thoracic spine without contrast. COMPARISON: No relevant prior studies available. FINDINGS: Vertebrae: Mild spondylosis. No evidence for fracture. Vertebral body height appears well preserved. There is moderate anterior hypertrophic spurring. Discs/Spinal canal/Neural foramina: No spinal stenosis. Soft tissues: Unremarkable. IMPRESSION: Spondylosis without evidence for fracture. PROCEDURE INFORMATION: Exam: CT Lumbar Spine Without Contrast Exam date and time: 02/06/2019 2:54 PM Age: 53 years old Clinical history: Other: Assess for thoracic compression/hip fracture; Additional info: S/P fall, R/O acute abnormality, fracture, assess for thoracic compression/hip fracture TECHNIQUE: Imaging protocol: Computed tomography images of the lumbar spine without contrast. COMPARISON: No relevant prior studies available. FINDINGS: Vertebrae: There is bilateral spondylolysis at L5-S1 with very minimal spondylolisthesis. No evidence for acute posttraumatic abnormality. Discs/Spinal canal/Neural foramina: No spinal stenosis. No neural foraminal narrowing. Vasculature: Severe atherosclerotic changes noted in the vasculature. Soft tissues: Unremarkable. IMPRESSION: No evidence for acute posttraumatic abnormality. COMMENT: Preliminary interpretation is based on receipt of 1926 image(s). A final report will be issued subsequently. Dictated and Authenticated by: Estephanie Salgado MD. Ordering:JOSE Garza MD
[2019-02-06] MEDS: Ibuprofen 600 MG TAB PO (15:47)
== END 2019-02-06 17:18 | disposition home or self-care (01) ==
PROVIDERS: Emergency Provider Physician Assistant; PCP Neurological Surgery
DX: S09.90XA Unspecified injury of head, initial encounter (principal); S50.311A Abrasion of right elbow, initial encounter; M54.2 Cervicalgia; M54.5 Low back pain; W18.30XA Fall on same level, unspecified, initial encounter; R93.422 Abnormal radiologic findings on diagnostic imaging of left kidney
CPT/HCPCS: 71250; 99284; 70450; 72125; 73080; 74176; 99283; L0172

== ENCOUNTER 2019-02-10 09:39 | Outpatient (REF) | payer MEDICARE, MEDICAID, SELFPAY ==
[2019-02-10 10:36] LABS: Abs Immature Grans 0.05 k/cumm (0.0-0.09); Absolute Basophil Count 0.04 k/cumm (0.0-0.2); Absolute Lymphocyte Count 3.62 k/cumm (1.2-3.4); Absolute Monocyte Count 0.52 k/cumm (0.11-0.7); Absolute Neutrophil Count 3.22 k/cumm (1.2-6.7); Basophils % 0.5; HCT 39.3 % (36.0-46.0); HGB 12.6 g/dL (12.0-15.5); Immature Grans % 0.7; Lymphocytes % 48.6; Mean Corp. HGB Concentration 32.1 g/dL (32.0-36.0); Mean Corpuscular Hemoglobin 31.6 pg (27.0-33.0); Mean Corpuscular Volume 98.5 fL (80-95); Mean Platelet Volume 10.5 fL (8.0-11.0); Neutrophils % 43.2; Platelet Count 190 x1000/uL (130-400); RBC 3.99 m/cumm (4.00-5.20); RBC Distribution Width 13.5 % (11.7-14.6); White Blood Cell Count 7.45 k/cumm (4.4-10.8)
== END 2019-02-10 09:59 ==
LOC: LBN 09:39
PROVIDERS: PCP Neurological Surgery; Visit Provider Nurse Practitioner Gerontology
DX: F25.9 Schizoaffective disorder, unspecified (principal); Z79.899 Other long term (current) drug therapy
CPT/HCPCS: 85025

== ENCOUNTER → 2019-02-22 13:01 | Outpatient (BNVA) | payer MEDICARE, MEDICAID, SELFPAY | PROVIDERS: PCP Neurological Surgery; Referring Provider Family Medicine; Visit Provider Psychiatry & Neurology Neurology | DX: G21.9 Secondary parkinsonism, unspecified (principal); R29.6 Repeated falls; R41.89 Other symptoms and signs involving cognitive functions and awareness; E11.40 Type 2 diabetes mellitus with diabetic neuropathy, unspecified | CPT/HCPCS: 99205 ==

== ENCOUNTER 2019-03-04 14:17 | Emergency (ER) | payer MEDICARE, MEDICAID, SELFPAY ==
[2019-03-04] VITALS (42 sets, daily range): BP systolic 103–158; BP diastolic 50–84; PULSE 75–99; RESP 16–28; TEMP 36.6; O2SAT 95–100
--- NOTE | 2019-03-04 14:21 | W.ED.GENAD ---
Discharge Plan Disposition Patient Disposition: HOME Condition: Good Discharge Details Chief Complaint: AMS/LOC Clinical Impression: Syncope, UTI (urinary tract infection) Primary Care Provider: Johnnie Clements I ED Provider: Kayla Bedolla Home Meds and New Rx's Prescriptions: New levofloxacin [Levaquin] 750 mg tablet 750 mg PO DAILY 5 Days Qty: 5 RF: 0 Continued atorvastatin 40 mg Tablet 40 mg PO DAILY RF: 0 levothyroxine 175 mcg Tablet 175 mcg PO DAILY RF: 0 clozapine 100 mg Tablet 100 mg PO DAILY RF: 0 Nicotrol 10 mg Cartridge 1 inh INHALATION 4-6XD PRNRF: 0 ergocalciferol (vitamin D2) [Vitamin D2] 1,250 mcg (50,000 unit) Capsule 50,000 unit PO DIRECTED RF: 0 CertaVite Senior-Antioxidant 0.4-300-250 mg-mcg-mcg Tablet 1 tab PO DAILY RF: 0 esomeprazole magnesium 20 mg Tablet,Delayed Release (Dr/Ec) 20 mg PO DAILY RF: 0 atorvastatin 40 mg Tablet 40 mg PO DAILY RF: 0 acetaminophen 325 mg Tablet 650 mg PO Q4H PRN PRNRF: 0 ipratropium-albuterol 0.5 mg-3 mg(2.5 mg base)/3 mL Solution For Nebulization 3 ml INHALATION QID PRNRF: 0 ipratropium-albuterol 0.5 mg-3 mg(2.5 mg base)/3 mL Solution For Nebulization 3 ml INHALATION BID RF: 0 Lantus U-100 Insulin 100 unit/mL Solution 20 unit SUBCUT HS RF: 0 torsemide 20 mg Tablet 40 mg PO DAILY RF: 0 clozapine 100 mg Tablet 1 mg PO DAILY RF: 0 levetiracetam 500 mg Tablet 500 mg PO BID RF: 0 olanzapine 5 mg Tablet 5 mg PO DAILY RF: 0 olanzapine [Zyprexa] 5 mg Tablet 5 mg PO DAILY RF: 0 naproxen 250 mg Tablet 250 mg PO BID PRNRF: 0 divalproex 500 mg Tablet,Delayed Release (Dr/Ec) 2,500 mg PO HS RF: 0 olanzapine 2.5 mg Tablet 2.5 mg PO DAILY RF: 0 magnesium oxide 400 mg (241.3 mg magnesium) Tablet 400 mg PO TID RF: 0 metformin 1,000 mg Tablet 1,000 mg PO BID RF: 0 nitroglycerin 0.4 mg Tablet, Sublingual 0.4 mg SUBLINGUAL Q5-15M PRNRF: 0 docusate sodium [Colace] 100 mg Capsule 100 mg PO BID PRNRF: 0 benztropine [Cogentin] 2 mg/2 mL Solution 0.5 mg IM BID RF: 0 CertaVite Senior-Antioxidant 0.4-300-250 mg-mcg-mcg Tablet 1 tab PO DAILY RF: 0 clozapine 50 mg Tablet 250 mg PO HS RF: 0 Symbicort 160-4.5 mcg/actuation Hfa Aerosol Inhaler 2 puff INHALATION BID RF: 0 ferrous gluconate 324 mg (37.5 mg iron) Tablet 324 mg PO BID RF: 0 Combivent Respimat 20-100 mcg/actuation Mist 1 puff INHALATION QID RF: 0 levothyroxine 175 mcg Tablet 175 mcg PO DAILY RF: 0 Nicotrol 10 mg Cartridge 1 inh INHALATION 4-8XD PRNRF: 0 esomeprazole magnesium [Nexium] 20 mg Capsule,Delayed Release(Dr/Ec) 20 mg PO DAILY RF: 0 Discharge Instructions Instructions: Urinary Tract Infection in Women (ED), Syncope (ED) Additional Instructions: Take the antibiotics until finished. Drink plenty fluids get plenty of rest. Follow-up with the primary care doctor within the next week for reevaluation. Return to the emergency department if you develop any worsening or new concerning symptoms. Discharge Data Discharge Physician: Kayla Bedolla Medical Decision Making 53-year-old female with a history of COPD, diabetes, GERD, schizoaffective disorder and bipolar disorder presents from the [facility] for syncopal episode. Patient denies any symptoms on arrival. Per EMS on arrival, EKG noted left bundle branch block as well as ST depression in lateral leads. EKG on arrival notes a rate of 88, sinus with left bundle branch block. No acute change from previous EKG. Upon my assessment, patient asking for coffee and something to eat. She appears nontoxic and is pleasant and talkative. She had a few episodes while in the ED in which she appears to close her eyes and trail off but this lasts a few seconds and then she opens her eyes and begins conversing again. She shakes her head from side to side during these episodes but at times opens 1 eye to look at you. She has no focal deficits. This does not appear consistent with acute stroke. She does have a history of seizures so unclear if this is a seizure and patient seems to be aware of when she is doing this. Do not see indication for CT head at this time. Labs and imaging reviewed. No white blood cell count. Potassium 3 and magnesium 1.2 which were repleted. Troponin negative. Urinalysis notes 20-50 WBCs. Will treat for UTI. Valproic acid level therapeutic. Keppra level is a send out. Chest x-ray negative. She was able to drink 4 cups of decaf coffee, a few popsicles, ate a full meal and ambulate around the room without any acute distress. She was also asking for another meal. She is asking when she can go back to the [facility]. 1 dose of Levaquin given here as well as prescription. Advised to follow-up with her primary care doctor for reevaluation and to return here at any time if worse. Medical Records Medical records reviewed: Yes I reviewed the patient's medical records. Imaging Data Radiologic Study: Radiologist's impression: XR PORTABLE CHEST AP CLINICAL HISTORY: s/p syncope, r/o acute disease TECHNIQUE: COMPARISON: No exams were available for comparison FINDINGS: Portable view of the chest was obtained. Cardiac size is within normal limits. There appear to be mild changes of pulmonary scarring. No focal consolidation. No pneumothorax. IMPRESSION: No evidence of acute process. Lab Data Lab results reviewed: Yes I reviewed the patient's lab results. Labs: 03/04/19 14:35 Urine - Reflex from Ua Urine Culture - Pending Laboratory Tests Range/Units 03/04/19 03/04/19 03/04/19 14:33 14:35 15:20 WBC (4.4-10.8) k/cumm RBC (4.00-5.20) m/cumm Hgb (12.0-15.5) g/dL Hct (36.0-46.0) % MCV (80-95) fL MCH (27.0-33.0) pg MCHC (32.0-36.0) g/dL RDW (11.7-14.6) % Plt Count (130-400) x1000/uL MPV (8.0-11.0) fL Immature Gran % Neutrophils % Lymphocytes % Monocytes % Eosinophils % Basophils % Absolute Neutrophils (1.2-6.7) k/cumm Absolute Lymphocytes (1.2-3.4) k/cumm Absolute Monocytes (0.11-0.7) k/cumm Absolute Eosinophils (0.0-0.7) k/cumm Absolute Basophils (0.0-0.2) k/cumm Sodium (136-145) mmol/L 144 Potassium (3.5-5.1) mmol/L 3.0 L Chloride (98-107) mmol/L 101 Carbon Dioxide (21.0-32.0) mmol/L 32.5 H Anion Gap (3-11) mmol/L 10.5 BUN (7-18) mg/dL 13 Creatinine (0.55-1.02) mg/dL 0.86 Estimated GFR/1.73 m2 (mL/min/1.73m2) >= 60.00 Glucose (74-106) mg/dL 77 Calcium (8.5-10.1) mg/dL 9.1 Magnesium (1.8-2.4) mg/dL 1.2 L Total Bilirubin (0.2-1.0) mg/dL 0.4 AST (15-37) U/L 46 H ALT (14-59) U/L 28 Alkaline Phosphatase (46-116) U/L 59 Troponin I (<0.06) ng/Ml < 0.05 Total Protein (6.4-8.2) g/dL 7.2 Albumin (3.4-5.0) g/dL 2.8 L Urine Color (Yellow) Yellow Urine Clarity (Clear) Clear Urine pH (5-8) 7.0 Ur Specific [place] (1.005-1.025) 1.015 Urine Protein (Negative) mg/dL Negative Urine Ketones (Negative) mg/dL Negative Urine Blood (Negative) Negative Urine Nitrite (Negative) Negative Urine Bilirubin (Negative) Negative Urine Urobilinogen (Up TO 0.2) EU/dL 0.2 Ur Leukocyte Esterase (Negative) Small H Urine RBC (0-2) HPF Negative Urine WBC (0-5) HPF 20-50 H Ur Epithelial Cells (Negative) HPF Rare Urine Crystals (Negative) HPF Negative Urine Bacteria (Negative) HPF Few Urine Casts (Negative) LPF 0-2 hyaline Urine Mucus (Negative) Negative Ur Culture Indicated? Yes Urine Glucose (Negative) mg/dL Negative Total Valproic Acid (50-100) ug/mL Double Strand DNA Ab Cancelled Range/Units 03/04/19 03/04/19 15:20 15:20 WBC (4.4-10.8) k/cumm 8.17 RBC (4.00-5.20) m/cumm 3.85 L Hgb (12.0-15.5) g/dL 12.3 Hct (36.0-46.0) % 37.0 MCV (80-95) fL 96.1 H MCH (27.0-33.0) pg 31.9 MCHC (32.0-36.0) g/dL 33.2 RDW (11.7-14.6) % 13.2 Plt Count (130-400) x1000/uL 170 MPV (8.0-11.0) fL 9.7 Immature Gran % 0.5 Neutrophils % 61.5 Lymphocytes % 25.7 Monocytes % 11.8 Eosinophils % 0.0 Basophils % 0.5 Absolute Neutrophils (1.2-6.7) k/cumm 5.03 Absolute Lymphocytes (1.2-3.4) k/cumm 2.10 Absolute Monocytes (0.11-0.7) k/cumm 0.96 H Absolute Eosinophils (0.0-0.7) k/cumm 0.00 Absolute Basophils (0.0-0.2) k/cumm 0.04 Sodium (136-145) mmol/L Potassium (3.5-5.1) mmol/L Chloride (98-107) mmol/L Carbon Dioxide (21.0-32.0) mmol/L Anion Gap (3-11) mmol/L BUN (7-18) mg/dL Creatinine (0.55-1.02) mg/dL Estimated GFR/1.73 m2 (mL/min/1.73m2) Glucose (74-106) mg/dL Calcium (8.5-10.1) mg/dL Magnesium (1.8-2.4) mg/dL Total Bilirubin (0.2-1.0) mg/dL AST (15-37) U/L ALT (14-59) U/L Alkaline Phosphatase (46-116) U/L Troponin I (<0.06) ng/Ml Total Protein (6.4-8.2) g/dL Albumin (3.4-5.0) g/dL Urine Color (Yellow) Urine Clarity (Clear) Urine pH (5-8) Ur Specific [place] (1.005-1.025) Urine Protein (Negative) mg/dL Urine Ketones (Negative) mg/dL Urine Blood (Negative) Urine Nitrite (Negative) Urine Bilirubin (Negative) Urine Urobilinogen (Up TO 0.2) EU/dL Ur Leukocyte Esterase (Negative) Urine RBC (0-2) HPF Urine WBC (0-5) HPF Ur Epithelial Cells (Negative) HPF Urine Crystals (Negative) HPF Urine Bacteria (Negative) HPF Urine Casts (Negative) LPF Urine Mucus (Negative) Ur Culture Indicated? Urine Glucose (Negative) mg/dL Total Valproic Acid (50-100) ug/mL 79.9 Double Strand DNA Ab ECG Data Attestation: I personally reviewed and interpreted this ECG (s) as follows: Interpretation: Rate of 88, sinus, left bundle branch block. NC 114. QTc 498. HPI General Mode of arrival: EMS. Date/Time Provider Initiated Documentation: 03/04/19 14:20. Limitations to Documentation: no limitations. Information obtained by: patient. HPI Narrative: Patient is a 53-year-old female with a history of COPD, diabetes, GERD, schizoaffective disorder and bipolar disorder who presented as a syncopal episode at the [facility] while sitting in a chair. Patient states she was sitting in the chair when she felt dizzy and states she passed out. She states this happens to her from time to time for several months. Patient denies any symptoms at present. She denies headache, chest pain, shortness of breath, abdominal pain, vomiting or diarrhea. Shortly after my evaluation, patient asked for a cup of coffee and something to eat and request to go back to the [facility]. Related Data Home Medications Medication Instructions Recorded Confirmed CertaVite Senior-Antioxidant 1 tab PO DAILY 03/04/19 03/04/19 CertaVite Senior-Antioxidant 1 tab PO DAILY 03/04/19 03/04/19 Combivent Respimat 1 puff INHALATION QID 03/04/19 03/04/19 Lantus U-100 Insulin 20 unit SUBCUT HS 03/04/19 03/04/19 Nicotrol 1 inh INHALATION 4-6XD PRN 03/04/19 03/04/19 Nicotrol 1 inh INHALATION 4-8XD PRN 03/04/19 03/04/19 Symbicort 2 puff INHALATION BID 03/04/19 03/04/19 acetaminophen 650 mg PO Q4H PRN PRN 03/04/19 03/04/19 atorvastatin 40 mg PO DAILY 03/04/19 03/04/19 atorvastatin 40 mg PO DAILY 03/04/19 03/04/19 benztropine [Cogentin] 0.5 mg IM BID 03/04/19 03/04/19 clozapine 1 mg PO DAILY 03/04/19 03/04/19 clozapine 100 mg PO DAILY 03/04/19 03/04/19 clozapine 250 mg PO HS 03/04/19 03/04/19 divalproex 2,500 mg PO HS 03/04/19 03/04/19 docusate sodium [Colace] 100 mg PO BID PRN 03/04/19 03/04/19 ergocalciferol (vitamin D2) 50,000 unit PO DIRECTED 03/04/19 03/04/19 [Vitamin D2] esomeprazole magnesium 20 mg PO DAILY 03/04/19 03/04/19 esomeprazole magnesium [Nexium] 20 mg PO DAILY 03/04/19 03/04/19 ferrous gluconate 324 mg PO BID 03/04/19 03/04/19 ipratropium-albuterol 3 ml INHALATION BID 03/04/19 03/04/19 ipratropium-albuterol 3 ml INHALATION QID PRN 03/04/19 03/04/19 levetiracetam 500 mg PO BID 03/04/19 03/04/19 levofloxacin [Levaquin] 750 mg PO DAILY 5 Days #5 tab 03/04/19 levothyroxine 175 mcg PO DAILY 03/04/19 03/04/19 levothyroxine 175 mcg PO DAILY 03/04/19 03/04/19 magnesium oxide 400 mg PO TID 03/04/19 03/04/19 metformin 1,000 mg PO BID 03/04/19 03/04/19 naproxen 250 mg PO BID PRN 03/04/19 03/04/19 nitroglycerin 0.4 mg SUBLINGUAL Q5-15M PRN 03/04/19 03/04/19 olanzapine 2.5 mg PO DAILY 03/04/19 03/04/19 olanzapine 5 mg PO DAILY 03/04/19 03/04/19 olanzapine [Zyprexa] 5 mg PO DAILY 03/04/19 03/04/19 torsemide 40 mg PO DAILY 03/04/19 03/04/19 Previous Rx's Medication Instructions Recorded levofloxacin [Levaquin] 750 mg PO DAILY 5 Days #5 tab 03/04/19 Allergies Allergy/AdvReac Type Severity Reaction Status Date / Time lithium Allergy Unknown Unverified 03/04/19 15:55 oxycodone [From OxyContin] Allergy Unknown Unverified 03/04/19 15:55 Penicillins Allergy Unknown Unverified 03/04/19 15:55 pioglitazone Allergy Unknown Unverified 03/04/19 15:55 prednisone Allergy Unknown Unverified 03/04/19 15:55 Sulfa (Sulfonamide Allergy Unknown Unverified 03/04/19 15:55 Antibiotics) tramadol Allergy Unknown Unverified 03/04/19 15:55 Review of Systems All systems reviewed & are unremarkable except as noted in HPI and below Constitutional Constitutional: Reports as per HPI, Denies chills and Denies fever(s) Eyes Eyes: Denies blurry vision ENT Ears, Nose, Mouth, and Throat: Denies dizziness, Denies sore throat and Denies throat swelling Cardiovascular Cardiovascular: Denies chest pain, Reports syncope and Denies dyspnea Respiratory Respiratory: Denies cough and Denies dyspnea Gastrointestinal Gastrointestinal: Denies abdominal pain, Denies diarrhea and Denies vomiting Genitourinary Genitourinary: Denies hematuria and Denies dysuria Musculoskeletal Musculoskeletal: Denies back pain and Denies numbness Integumentary/Breasts Skin/Breast: Denies lesions and Denies rash Neurologic Neurologic: Denies dizziness, Reports syncope, Denies focal weakness and Denies numbness Allergic/Immunologic Allergic/Immunologic: Denies throat swelling [facility] Medical History Acute kidney injury (Acute) 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) COPD (chronic obstructive pulmonary disease) (Chronic) Diabetes (Chronic) GERD (gastroesophageal reflux disease) (Chronic) Heart murmur (Acute) Hyperthyroidism (Chronic) Pancreatitis (Chronic) Schizoaffective disorder (Acute) Exam Const General: cooperative, healthy appearing and no acute distress HENOK Head: normal to inspection Face and sinus: normal facial exam Eyes General: appearance normal, both eyes and all related structures EOM: EOM intact bilaterally Neck Neck: normal visual inspection and No submandibular swelling Lymphatic: no lymphadenopathy noted Chest Chest: normal inspection of the chest and no tenderness Resp Effort & Inspection: normal respiratory effort and able to speak in complete sentences Auscultation: clear to auscultation bilaterally Cardio Rate: regular rate Rhythm: regular rhythm GI Inspection: normal to inspection Palpation: soft, not firm, not rigid and nontender Auscultation: normal bowel sounds Skin General skin exam: no rashes or lesions noted Neuro General: alert, awake, oriented x3 and moves all extremities Cranial Nerves: CN's II-XI intact bilaterally Cognition: normal cognition Speech: speech normal Motor: muscle tone normal throughout and strength 5/5 throughout Sensory Exam: no sensory deficits noted Extrem General: normal to inspection, full ROM, normal capillary refill, no calf tenderness bilaterally and no edema Psych Appearance: grossly normal Mental Status: mental status grossly normal Speech and Movement: speech and movement normal Affect: normal affect
[2019-03-04 14:48] LABS: Bilirubin Negative (Negative); Blood Negative (Negative); Clarity Clear (Clear); Glucose Negative (Negative); Ketones Negative (Negative); Leukocyte Esterase Small (Negative); Nitrite Negative (Negative); Specific Gravity 1.015 (1.005-1.025); Urobilinogen 0.2 EU/dL (Up TO 0.2)
[2019-03-04 14:56] LABS: Epithelial Cells Rare HPF (Negative); RBC Negative HPF (0-2); WBC 20-50 HPF (0-5)
[2019-03-04 14:57] LABS: Bacteria Few HPF (Negative); C & S Indicated? Yes; Casts 0-2 Hyaline LPF (Negative); Crystals Negative HPF (Negative); Mucus Negative (Negative)
--- NOTE | 2019-03-04 14:57 | DI.RAD_ITS ---
EXAM: XR PORTABLE CHEST AP CLINICAL HISTORY: s/p syncope, r/o acute disease TECHNIQUE: COMPARISON: No exams were available for comparison FINDINGS: Portable view of the chest was obtained. Cardiac size is within normal limits. There appear to be m ild changes of pulmonary scarring. No focal consolidation. No pneumothorax. IMPRESSION: No evidence of acute process.
[2019-03-04] MEDS: Normal Saline 500 ML IV (15:05)
[2019-03-04 15:32] LABS: Abs Immature Grans 0.04 k/cumm (0.0-0.09); Absolute Basophil Count 0.04 k/cumm (0.0-0.2); Absolute Monocyte Count 0.96 k/cumm (0.11-0.7); Absolute Neutrophil Count 5.03 k/cumm (1.2-6.7); Basophils % 0.5; HGB 12.3 g/dL (12.0-15.5); Immature Grans % 0.5; Lymphocytes % 25.7; Mean Corp. HGB Concentration 33.2 g/dL (32.0-36.0); Mean Corpuscular Hemoglobin 31.9 pg (27.0-33.0); Mean Corpuscular Volume 96.1 fL (80-95); Mean Platelet Volume 9.7 fL (8.0-11.0); Monocytes % 11.8; Neutrophils % 61.5; Platelet Count 170 x1000/uL (130-400); RBC 3.85 m/cumm (4.00-5.20); RBC Distribution Width 13.2 % (11.7-14.6); White Blood Cell Count 8.17 k/cumm (4.4-10.8)
[2019-03-04 15:49] LABS: ALT 28 U/L (14-59); AST 46 U/L (15-37); Albumin 2.8 g/dL (3.4-5.0); Alkaline Phosphatase 59 U/L (46-116); Anion Gap 10.5 mmol/L (3-11); BUN 13 mg/dL (7-18); Bilirubin, Total 0.4 mg/dL (0.2-1.0); CO2 32.5 mmol/L (21.0-32.0); CREATININE 0.86 mg/dL (0.55-1.02); Calcium 9.1 mg/dL (8.5-10.1); Chloride 101 mmol/L (98-107); Glucose 77 mg/dL (74-106); Magnesium 1.2 mg/dL (1.8-2.4); Sodium 144 mmol/L (136-145); Total Protein 7.2 g/dL (6.4-8.2)
[2019-03-04 15:53] LABS: Troponin I < 0.05 ng/Ml (<0.06)
[2019-03-04] MEDS: Potassium Chloride 20 MEQ TABCR 40 MEQ PO (16:05)
[2019-03-04 16:44] LABS: VALPROIC ACID 79.9 ug/mL (50-100)
[2019-03-04] MEDS: MAGNESIUM SULFATE 1 GM/100 ML BAG IVPB (16:48)
[2019-03-04] MEDS: levoFLOXacin 500 MG, levoFLOXacin 250 MG 750 MG PO (18:27)
[2019-03-06 12:31] LABS: Levetiracetam 31.1 mcg/mL
== END 2019-03-04 19:30 | disposition home or self-care (01) ==
PROVIDERS: Emergency Provider Physician Assistant; PCP Neurological Surgery
DX: R41.82 Altered mental status, unspecified (principal); R55 Syncope and collapse; N39.0 Urinary tract infection, site not specified; G40.909 Epilepsy, unspecified, not intractable, without status epilepticus; E87.6 Hypokalemia; E83.42 Hypomagnesemia; E11.9 Type 2 diabetes mellitus without complications; Z79.4 Long term (current) use of insulin; J44.9 Chronic obstructive pulmonary disease, unspecified
CPT/HCPCS: 36415; 80053; 93005; 96361; 96365; 99284; 71045; 80164; 80177; 81003; 81015; 83735; 84484; 85025; 86225; 87086; 93010; J3475

== ENCOUNTER 2019-03-14 09:31 | Outpatient (REF) | payer MEDICARE, MEDICAID, SELFPAY ==
[2019-03-14 10:58] LABS: Hemoglobin A1C 6.9 % (3.8-5.6)
[2019-03-14 14:32] LABS: Bilirubin Negative (Negative); Blood Negative (Negative); Clarity Clear (Clear); Glucose Negative (Negative); Ketones Negative (Negative); Leukocyte Esterase Negative (Negative); Nitrite Negative (Negative); Specific Gravity <= 1.005 (1.005-1.025); Urobilinogen 0.2 EU/dL (Up TO 0.2); pH 5.5 (5-8)
[2019-03-14 14:54] LABS: Abs Immature Grans 0.08 k/cumm (0.0-0.09); Absolute Basophil Count 0.05 k/cumm (0.0-0.2); Absolute Lymphocyte Count 2.81 k/cumm (1.2-3.4); Absolute Monocyte Count 0.99 k/cumm (0.11-0.7); Absolute Neutrophil Count 4.28 k/cumm (1.2-6.7); Basophils % 0.6; HCT 33.9 % (36.0-46.0); Lymphocytes % 34.2; Mean Corp. HGB Concentration 32.4 g/dL (32.0-36.0); Mean Corpuscular Hemoglobin 32.4 pg (27.0-33.0); Mean Corpuscular Volume 99.7 fL (80-95); Mean Platelet Volume 10.8 fL (8.0-11.0); Monocytes % 12.1; Neutrophils % 52.1; Platelet Count 172 x1000/uL (130-400); RBC Distribution Width 13.8 % (11.7-14.6); White Blood Cell Count 8.21 k/cumm (4.4-10.8)
== END 2019-03-14 09:51 ==
LOC: LBN 09:31
PROVIDERS: Nurse Practitioner Gerontology; PCP Family Medicine; Visit Provider Family Medicine
DX: R53.83 Other fatigue (principal); N39.0 Urinary tract infection, site not specified
CPT/HCPCS: 81003; 83036; 85025; 87086

== ENCOUNTER 2019-03-24 13:48 | Outpatient (REF) | payer MEDICARE, MEDICAID, SELFPAY ==
[2019-03-24 14:32] LABS: Bilirubin Negative (Negative); Blood Negative (Negative); Clarity Clear (Clear); Glucose Negative (Negative); Ketones Negative (Negative); Leukocyte Esterase Small (Negative); Nitrite Negative (Negative); Specific Gravity 1.015 (1.005-1.025); Urobilinogen 0.2 EU/dL (Up TO 0.2); pH 8.5 (5-8)
[2019-03-24 14:48] LABS: Bacteria Rare HPF (Negative); C & S Indicated? C&S Done As Ordered; Casts Negative LPF (Negative); Crystals Negative HPF (Negative); Epithelial Cells Few HPF (Negative); Mucus Negative (Negative); RBC Negative HPF (0-2)
== END 2019-03-24 14:08 ==
LOC: LBN 13:48
PROVIDERS: PCP Family Medicine; Visit Provider Nurse Practitioner Gerontology
DX: N39.0 Urinary tract infection, site not specified (principal)
CPT/HCPCS: 87077; 81003; 81015; 87086; 87186

== ENCOUNTER 2019-03-30 11:05 | Outpatient (REF) | payer MEDICARE, MEDICAID, SELFPAY ==
[2019-03-30 11:53] LABS: BUN 12 mg/dL (7-18); CREATININE 0.82 mg/dL (0.55-1.02); Calcium 8.9 mg/dL (8.5-10.1); Chloride 105 mmol/L (98-107); Glucose 88 mg/dL (74-106); Magnesium 1.6 mg/dL (1.8-2.4); Sodium 147 mmol/L (136-145)
== END 2019-03-30 11:25 ==
LOC: LBN 11:05
PROVIDERS: PCP Family Medicine; Visit Provider Family Medicine
DX: E83.42 Hypomagnesemia (principal)
CPT/HCPCS: 80048; 83735

== ENCOUNTER 2019-04-04 18:02 | Outpatient (REF) | payer MEDICARE, MEDICAID, SELFPAY ==
[2019-04-04 14:20] LABS: Abs Immature Grans 0.04 k/cumm (0.0-0.09); Absolute Basophil Count 0.04 k/cumm (0.0-0.2); Absolute Lymphocyte Count 3.01 k/cumm (1.2-3.4); Absolute Monocyte Count 0.63 k/cumm (0.11-0.7); Absolute Neutrophil Count 3.86 k/cumm (1.2-6.7); Basophils % 0.5; HCT 35.8 % (36.0-46.0); HGB 11.4 g/dL (12.0-15.5); Immature Grans % 0.5 %; Lymphocytes % 39.7; Mean Corp. HGB Concentration 31.8 g/dL (32.0-36.0); Mean Corpuscular Hemoglobin 31.8 pg (27.0-33.0); Mean Corpuscular Volume 99.7 fL (80-95); Mean Platelet Volume 9.9 fL (8.0-11.0); Monocytes % 8.3; Platelet Count 170 x1000/uL (130-400); RBC 3.59 m/cumm (4.00-5.20); White Blood Cell Count 7.58 k/cumm (4.4-10.8)
[2019-04-04 14:57] LABS: ALT 17 U/L (14-59); AST 29 U/L (15-37); Albumin 2.8 g/dL (3.4-5.0); Alkaline Phosphatase 56 U/L (46-116); Anion Gap 9.1 mmol/L (3-11); BUN 12 mg/dL (7-18); Bilirubin, Total 0.3 mg/dL (0.2-1.0); CO2 30.9 mmol/L (21.0-32.0); CREATININE 0.94 mg/dL (0.55-1.02); Calcium 8.8 mg/dL (8.5-10.1); Chloride 105 mmol/L (98-107); Glucose 97 mg/dL (74-106); NT-proBNP 982 pg/mL (<300); Potassium 4.2 mmol/L (3.5-5.1); Sodium 145 mmol/L (136-145); Total Protein 6.3 g/dL (6.4-8.2)
[2019-04-04 19:45] LABS: Magnesium 1.8 mg/dL (1.8-2.4)
== END 2019-04-04 18:22 ==
LOC: LBN 18:02
PROVIDERS: PCP Family Medicine; Visit Provider Family Medicine
DX: I10 Essential (primary) hypertension (principal); R53.83 Other fatigue; M79.601 Pain in right arm; M79.602 Pain in left arm; M79.604 Pain in right leg; M79.605 Pain in left leg
CPT/HCPCS: 80053; 83735; 83880; 85025

== ENCOUNTER 2019-04-07 12:59 | Outpatient (REF) | payer MEDICARE, MEDICAID, SELFPAY ==
[2019-04-07 15:05] LABS: NT-proBNP 875 pg/mL (<300)
== END 2019-04-07 13:19 ==
LOC: NCHCN 12:59
PROVIDERS: PCP Family Medicine; Visit Provider Nurse Practitioner Gerontology
DX: I50.9 Heart failure, unspecified (principal)
CPT/HCPCS: 83880

== ENCOUNTER 2019-04-25 14:47 | Inpatient (IN) | payer MEDICARE, MEDICAID, SELFPAY ==
[2019-04-25] VITALS (33 sets, daily range): BP systolic 110–150; BP diastolic 47–111; PULSE 68–92; RESP 6–34; TEMP 36.6–36.9; O2SAT 92–99
--- NOTE | 2019-04-25 14:59 | ED.GENADUL_ITS ---
Discharge Plan Disposition Patient Disposition: [facility] INPATIENT Condition: Fair Discharge Details Chief Complaint: AMS/LOC Clinical Impression: UTI (urinary tract infection), High serum lactate Admit Date/Time: 04/25/19 17:45 Admit Provider: Dirk Davies Attending Provider: Dirk Davies Primary Care Provider: Mikayla Torres ED Provider: Mitzy Garrett Discharge Data Discharge Date/Time-TO BE ENTERED AT DEPARTURE: 04/25/19 18:50 Medical Decision Making <BOBBY Tirado - Last Filed: 04/26/19 21:38> Patient is a 53-year-old female who resides at the [facility] presenting today with chief complaint of altered mental status x4 days. Reports that she has been fatigued, her speech is been more garbled than typically, she has been hitting her head on the table during times of eating. Patient is not reporting any pain or discomfort. She does not feel short of breath. History significant for alcoholism in remission, bipolar, cognitive impairment, COPD, diabetes, diabetic neuropathy, GERD, heart murmur, left bundle branch block, AVANI, pancreatitis, schizoaffective disorder, Parkinson's disease, subdural hematoma. Patient's history is limited. Patient fell yesterday as well, this was a witnessed fall. EKG was reviewed by Dr. Camilo. Patient's sinus rhythm rate 85. She has a left bundle branch block. This is compared to previous with no acute changes noted. On exam, patient appears lethargic. She is occasionally trying to smile and joke with me. But frequently, she appears to be lethargic and snoring. She does respond and answers to some questions. She intermittently follows instructions. She able to move all 4 extremities on command but then when I asked her to open her eyes, she only opens her mouth. She is afebrile. Does not appear acutely ill. I am not seeing any notable deficit. No cranial nerve abnormalities appreciated although, again limited exam is slightly limited secondary to participation. Patient's lungs are clear. Normal cardiac exam. Mild lower extremity edema. Abdomen is benign. Contacted by provider Aranza at the [facility]. She advised that hte patient has been declining over the past month. She advised no recent change in meds. She states that when she evaluated the patient on Alfredo, she was weak but mental stable. She was joking, and had a full conversation with the patient. She states that today she was vastly changed. Differential is quite broad at this time. Unclear if this is a deterioration over one month or an acute change. She has been afebrile but this could be associated with illness, she could have UTI causing the sudden progression in her symptoms. Also considered LCPC infection but patient has no nuchal rigidity. Also considered worsening of her underlying etiology, adverse reaction to medications, metabolic encephalitis, mass effect or other unknown etiology. At the end of my shift, care was transitioned to Genny Garrett PA-C with labs and imaging pending. <BOBBY Lugo - Last Filed: 04/25/19 17:47> Assumed care of this 53-year-old patient in signout pending CT imaging as well as urinalysis and lactic acid results. Please see HPI for details of patient's history. Patient is lethargic yet responsive to verbal stimulus at the bedside. Vital signs reviewed. Patient does have mild increase in respiratory effort. Patient does have history of COPD uses inhalers. Will order DuoNeb. Patient's lactic acid returned at 2.1. Urinalysis does appear consistent with urinary tract infection. Given patient's mental status change and concerned the possibility of urosepsis. Will provide additional IV fluid, obtain blood cultures, plan for admission to the hospital and IV antibiotics once blood cultures are drawn. Patient agrees with this plan of care. CT head unremarkable Chest x-ray unremarkable Discussed with patient. Will plan to admit. Discussed with hospitalist who will accept patient's admission. Discussed antibiotic choice will provide Levaquin 500 mg now and follow urine cultures. Blood cultures pending. Dr. Davies accepts patient's admission. Admission orders placed HPI <BOBBY Tirado - Last Filed: 04/26/19 21:38> General Mode of arrival: EMS . Date/Time Provider Initiated Documentation: 04/25/19 14:51 . Limitations to Documentation: altered mental status . Information obtained by: patient, RN/MD (contacted by nursing staff at [facility] prior to arrival ), EMS and RN notes reviewed . History of Present Illness 53 year old F presents to the emergency department with the chief complaint of AMS, lethargy, fall yesterday, described as moderate, Patient started experiencing this month(s) (progressive decline over the past month with sudden worsening of symptoms over the past few days) and it has been constant. No relieving factors improve symptom(s), No exacerbating factors reported . Patient notes confusion, loss of appetite (staff reports minimal PO intake) and weakness; denies chest pain, cough, diaphoresis, fever/chills, headaches, nausea/vomiting, rash and shortness of breath. Patient did receive the following treatments prior to arrival, none Related Data Home Medications Medication Instructions Recorded Confirmed clozapine 125 mg PO DAILY 10/07/18 04/25/19 metformin 1,000 mg PO BID 10/07/18 04/25/19 Lantus Solostar U-100 Insulin 20 unit SUBCUT HS 02/06/19 04/25/19 budesonide-formoterol [Symbicort] 2 puff INHALATION BID 02/06/19 04/25/19 nitroglycerin 1 mg SUBLINGUAL PRN PRN 02/06/19 04/25/19 olanzapine 2.5 mg PO BID 02/06/19 04/25/19 divalproex 500 mg tablet,delayed 2,500 mg PO .QHS tab 02/22/19 04/25/19 release CertaVite Senior-Antioxidant 1 tab PO DAILY 03/04/19 04/25/19 Combivent Respimat 1 puff INHALATION QID 03/04/19 04/25/19 Nicotrol 1 inh INHALATION 4-6XD PRN 03/04/19 04/25/19 acetaminophen 650 mg PO Q4H PRN PRN 03/04/19 04/25/19 atorvastatin 40 mg PO DAILY 03/04/19 04/25/19 benztropine [Cogentin] 0.5 mg IM BID 03/04/19 04/25/19 budesonide-formoterol [Symbicort] 2 puff INHALATION BID 03/04/19 04/25/19 clozapine 250 mg PO .QHS 03/04/19 04/25/19 docusate sodium [Colace] 100 mg PO BID PRN 03/04/19 04/25/19 ergocalciferol (vitamin D2) 50,000 unit PO DIRECTED 03/04/19 04/25/19 [Vitamin D2] esomeprazole magnesium [Nexium] 20 mg PO DAILY 03/04/19 04/25/19 ferrous gluconate 324 mg PO BID 03/04/19 04/25/19 ipratropium-albuterol 3 ml INHALATION BID 03/04/19 04/25/19 levetiracetam 500 mg PO BID 03/04/19 04/25/19 levothyroxine 175 mcg PO DAILY 03/04/19 04/25/19 magnesium oxide 400 mg PO QID 03/04/19 04/25/19 torsemide 60 mg PO DAILY 03/04/19 04/25/19 polyethylene glycol 3350 17 g PO DAILY 04/25/19 04/25/19 senna 17.2 mg PO .QHS 04/25/19 04/25/19 Allergies Allergy/AdvReac Type Severity Reaction Status Date / Time prednisone Allergy Unknown Unverified 04/25/19 15:02 acetaminophen [From Percocet] Allergy Unverified 04/25/19 15:02 lithium Allergy Unverified 04/25/19 15:02 oxycodone [From OxyContin] Allergy Unverified 04/25/19 15:02 Penicillins Allergy Unverified 04/25/19 15:02 pioglitazone Allergy Unverified 04/25/19 15:02 Sulfa (Sulfonamide Allergy Unverified 04/25/19 15:02 Antibiotics) tramadol Allergy Unverified 04/25/19 15:02 General DIONE: 3 Review of Systems <BOBBY Tirado - Last Filed: 04/26/19 21:38> Unobtainable due to mental condition [facility] <BOBBY Tirado - Last Filed: 04/26/19 21:38> Medical History Acute kidney injury (Acute) 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) Bipolar 1 disorder (Acute) Cognitive impairment (Acute) COPD (chronic obstructive pulmonary disease) (Chronic) Diabetes mellitus type II, controlled (Acute) Diabetic neuropathy (Acute) Diastolic dysfunction (Chronic) Falls frequently (Acute) GERD (gastroesophageal reflux disease) (Chronic) Heart murmur (Acute) History of alcohol abuse (Acute) Hyperthyroidism (Chronic) Hypothyroid (Chronic) Left bundle branch block (Acute) AVANI (obstructive sleep apnea) (Chronic) Pancreatitis (Chronic) Schizoaffective disorder (Acute) Secondary Parkinson disease (Acute) Subdural hematoma (Resolved) small right September 2018 2/2 mechanical fall Tobacco dependence (Acute) Surgical History H/O abdominal surgery (Acute) S/P thoracotomy (Acute) Social History Smoking/Tobacco Use Status: Current every day Tobacco Type: cigarettes Smoking packs per day: 0.5 Smoking cigarettes per day: 10.0 Alcohol Intake: former Drug use: Never current occupation: Disabled. Lives at [facility] Do you feel safe at home: Yes Do you feel safe in your relationship?: Yes Exam <BOBBY Tirado - Last Filed: 04/26/19 21:38> Const General: cooperative, comfortable, no acute distress, well developed and ill appearing chronically Nutritional Appearance: well nourished and obese Orientation: alert, awake and confused Limitations: altered mental status HENMT Head: normal to inspection Ears: hearing grossly normal bilaterally Mouth: mucous membranes dry (appears dry) Chest Chest: normal inspection of the chest, normal palpation of entire chest wall and no crepitus Resp Effort & Inspection: normal respiratory effort, able to speak in complete sentences and no respiratory distress Auscultation: clear to auscultation bilaterally, no rales, no rhonchi and no wheezes Cardio Rate: regular rate Rhythm: regular rhythm Heart Sounds: S1 normal and S2 normal GI Inspection: normal to inspection, no edema, non-distended and obesity Palpation: soft, no hepatosplenomegaly, not firm, no guarding, not rigid and nontender Auscultation: normal bowel sounds Back/Spine/Pelvis Back: no CVA tenderness Thoracic/Lumbar Spine: thoracic and lumbar spine normal to inspection Skin General skin exam: no rashes or lesions noted Trauma: no lacerations or abrasions Neuro General: alert, awake and moves all extremities Cranial Nerves: CN's II-XI intact bilaterally Cognition: abnormal cognition Speech: other (intermittent forced speech) Gait: gait abnormal (patient has not been able to walk in >1 month) Motor: no pronator drift, no movement abnormalities noted (has difficulty following instructions, able to move all extremities well), no fasciculations and no tremors Extrem General: normal to inspection, normal capillary refill, no pedal edema, no calf tenderness and normal gait Psych Appearance: grossly normal and well kempt Sign Out <BOBBY Tirado - Last Filed: 04/26/19 21:38> Sign Out Data: Sign Out Comment: Care transition to BOBBY Hobson with labs and imaging pending Last updated by Shayy Atkinson PA at 04/25/19 15:56
--- NOTE | 2019-04-25 15:00 | DI.RAD_ITS ---
EXAM: XR CHEST 2V PA LATERAL INDICATION: lethargic. COMPARISON: XR PORTABLE CHEST AP from 03/04/2019 TECHNIQUE: 2D digital imaging was performed. FINDINGS: The heart size and pulmonary vasculature are within normal limits. The lungs are clear. No pleural e ffusion or pneumothorax is present. No acute osseous abnormality is identified. There are stable de generative changes in the spine. There is a stable bone island in the left humeral head. IMPRESSION: No acute pulmonary process.
[2019-04-25] MEDS: Normal Saline 1,000 ML 1000 ML IV ×2 (15:13→17:25)
[2019-04-25 15:26] LABS: Abs Immature Grans 0.03 k/cumm (0.0-0.09); Absolute Basophil Count 0.02 k/cumm (0.0-0.2); Absolute Lymphocyte Count 1.91 k/cumm (1.2-3.4); Absolute Monocyte Count 1.02 k/cumm (0.11-0.7); Absolute Neutrophil Count 4.25 k/cumm (1.2-6.7); Basophils % 0.3; HCT 39.1 % (36.0-46.0); HGB 12.7 g/dL (12.0-15.5); Immature Grans % 0.4 %; Lymphocytes % 26.4; Mean Corp. HGB Concentration 32.5 g/dL (32.0-36.0); Mean Corpuscular Hemoglobin 31.4 pg (27.0-33.0); Mean Corpuscular Volume 96.8 fL (80-95); Mean Platelet Volume 9.9 fL (8.0-11.0); Monocytes % 14.1; Neutrophils % 58.8; Platelet Count 104 x1000/uL (130-400); RBC 4.04 m/cumm (4.00-5.20); RBC Distribution Width 13.7 % (11.7-14.6); White Blood Cell Count 7.23 k/cumm (4.4-10.8)
[2019-04-25 15:50] LABS: ALT 20 U/L (14-59); AST 38 U/L (15-37); Albumin 2.9 g/dL (3.4-5.0); Alkaline Phosphatase 60 U/L (46-116); BUN 29 mg/dL (7-18); Bilirubin, Total 0.5 mg/dL (0.2-1.0); CREATININE 1.37 mg/dL (0.55-1.02); Calcium 8.5 mg/dL (8.5-10.1); Chloride 100 mmol/L (98-107); Estimated GFR 40.33 (mL/min/1.73m2); Glucose 150 mg/dL (74-106); Magnesium 1.7 mg/dL (1.8-2.4); Potassium 3.1 mmol/L (3.5-5.1); Sodium 143 mmol/L (136-145); TSH 0.98 uIU/mL (0.36-3.74); Total Protein 7.3 g/dL (6.4-8.2)
[2019-04-25 15:52] LABS: Bilirubin Negative (Negative); Blood Negative (Negative); Clarity Clear (Clear); Glucose Negative (Negative); Ketones Negative (Negative); Leukocyte Esterase Moderate (Negative); Nitrite Negative (Negative); Specific Gravity 1.015 (1.005-1.025); Urobilinogen 0.2 EU/dL (Up TO 0.2)
[2019-04-25 15:54] LABS: Troponin I < 0.05 ng/Ml (<0.06)
[2019-04-25 16:13] LABS: Bacteria Moderate HPF (Negative); C & S Indicated? Yes; Crystals Negative HPF (Negative); Epithelial Cells Negative HPF (Negative); Mucus Negative (Negative); Other Cells Few Transitional (Negative); RBC Negative HPF (0-2); WBC >50 HPF (0-5)
[2019-04-25 16:16] LABS: Lactate 2.1 mmol/L (0.6-1.4)
--- NOTE | 2019-04-25 16:20 | DI.CT_ITS ---
EXAM: CT HEAD WO CLINICAL HISTORY: AMS TECHNIQUE: The exam was performed without contrast. COMPARISON: No exams were available for comparison FINDINGS: There is prominence of the ventricles and sulci consistent with cerebral atrophy. There are areas of decreased attenuation in the white matter consistent with small vessel ischemic disease. No acute t erritorial infarct, intracranial hemorrhage or midline shift or mass effect is identified. The ventr icles are intact. The basilar cisterns are patent. The calvarium is intact there is near complete o pacification of the left maxillary sinus. The remaining visualized paranasal sinuses are clear. IMPRESSION: 1. No acute intracranial process. 2. Opacification of the left maxillary sinus with high density material. This may represent inspissa fredy secretions or atypical infection.
[2019-04-25 16:31] LABS: Ammonia < 10 umol/L (11-32)
--- NOTE | 2019-04-25 16:39 | DI.VRAD_ITS ---
PROCEDURE INFORMATION: Exam: CT Head Without Contrast Exam date and time: 04/25/2019 4:16 PM Age: 53 years old Clinical indication: Altered mental status/memory loss; Other: Na; Patient HX: AMS TECHNIQUE: Imaging protocol: Computed tomography of the head without contrast. Radiation optimization: All CT scans at this facility use at least one of these dose optimization techniques: automated exposure control; mA and/or kV adjustment per patient size (includes targeted exams where dose is matched to clinical indication); or iterative reconstruction. COMPARISON: No relevant prior studies available. FINDINGS: Brain: There is mild diffuse heterogeneity of the white matter attenuation, consistent with chronic white matter ischemic changes. Mild cerebral atrophy No acute intracranial hemorrhage. Pneumo cephaly in the interhemispheric fissure Ventricles: Normal. No ventriculomegaly. Bones/joints: Unremarkable. No acute fracture. Sinuses: Opacities in the left maxillary sinus may represent sinusitis. Mastoid air cells: Visualized mastoid air cells are well aerated. Soft tissues: Unremarkable. IMPRESSION: 1. Opacities in the left maxillary sinus may represent sinusitis. 2. No acute intracranial hemorrhage. Dictated and Authenticated by: Jasmin Gee MD. Ordering:RAY Lucas MD
--- NOTE | 2019-04-25 16:40 | DI.VRAD_ITS ---
PROCEDURE INFORMATION: Exam: XR Chest, 2 Views Exam date and time: 04/25/2019 4:08 PM Age: 53 years old Clinical indication: Other: Lethargic TECHNIQUE: Imaging protocol: XR of the chest Views: 2 views. COMPARISON: CR XR PORTABLE CHEST AP 03/04/2019 2:57 PM FINDINGS: Lungs: Unremarkable. No consolidation. Pleural space: Unremarkable. No pleural effusion. No pneumothorax. Heart/Mediastinum: Stable cardiac silhouette Bones/joints: Stable. Stable sclerotic density in the left humeral head IMPRESSION: No acute process Dictated and Authenticated by: Jasmin Gee MD. Ordering:RAY Lucas MD
[2019-04-25] MEDS: Albuterol/Ipratropium 3 ML UPD VIAL UPD (17:23)
[2019-04-25] MEDS: levoFLOXacin 500 MG/100 ML BAG 100 MG IVPB (17:56)
[2019-04-25] MEDS: MAGNESIUM SULFATE 1 GM/100 ML BAG IVPB (21:20)
[2019-04-25] MEDS: POTASSIUM CHLORIDE/0.9% NACL 1,000 ML 125 MEQ IV (21:20)
--- NOTE | 2019-04-25 21:39 | W.PM.HP.N ---
Date of service: 04/25/19 Time of Service: 21:39 Assessment and Plan Assessment and plan (1) UTI (urinary tract infection): Status: Acute Assessment and plan: Urine appears to be infected with numerous white cells and leukocyte esterase present. Culture is pending. Blood cultures are pending. At this point we are presuming that the urinary tract infection is a possible cause of her sudden onset mental status change and weakness. IV Levaquin 500 mg x 1. Reassess labs in the a.m. and pharmacy consult for further dosing. (2) Dehydration: Status: Acute Assessment and plan: Patient is moderately dehydrated with evidence of azotemia. Will hydrate gently given her history of diastolic dysfunction. (3) Diastolic dysfunction: Status: Acute Assessment and plan: Patient was on a high dose of torsemide, 60 mg daily. Will hold torsemide until euvolemic. Restart loop diuretic therapy once stabilized. Monitor for signs of congestive heart failure. (4) Diabetes mellitus type II, controlled: Status: Acute Assessment and plan: Follow fingerstick blood sugars. Carbohydrate controlled diet. (5) Schizophrenia: Status: Chronic Assessment and plan: Patient is on major antipsychotic medications including Clozaril. We will continue present medications. Check valproic acid level as a potential cause for some of her mental status change. Qualifiers: Schizophrenia type: undifferentiated schizophrenia Qualified Code(s): F20.3 - Undifferentiated schizophrenia (6) Falls frequently: Status: Acute Assessment and plan: Frequent falls secondary to her overall weakness. She is known to have a secondary Parkinson's syndrome. (7) Electrolyte abnormality: Status: Acute Assessment and plan: Potassium and magnesium replacement given. Recheck labs in the a.m. (8) Discharge planning issues: Status: Acute Assessment and plan: Patient is admitted to acute care status given her multiple abnormalities and comorbidities. She is a full code. Plan is to return to the [facility] once stable. History of Present Illness History of Present Illness Chief Complaint: Acute mental status change/lethargyHer labs showed a low potassium and low magnesium. The urinalysis showed moderate leukocyte esterase and greater than 50 white cells. Narrative: This is a 53-year-old female that resides at the [facility]. She has had about a month long period of worsening lethargy. The staff noticed that over the last 4 days her mental status has been altered. She has been so fatigued that her speech is been garbled, she has been hitting her head on the table during mealtimes, she has been overall more lethargic. She had a witnessed fall 1 day prior to admission. No injuries were reported. She has had difficulty walking recently. In the emergency room she was lethargic but was able to interact with staff reasonably well. There were no focal neurologic deficits. Her labs showed low potassium and low magnesium. Her urine showed moderate leukocyte esterase and greater than 50 white cells. She is presumed to have a urinary tract infection as a possible explanation for her mental status change. She is receiving IV fluids and IV levofloxacin. She is admitted acutely to the [facility] floor. Review of Systems Narrative: Patient was quite a bit more alert on my exam. She voiced concern that she has been weak and not able to walk. She denied any problems with urinary frequency or burning. She was not having any chest pain, no respiratory complaints, no significant abdominal discomfort. [facility] Medical History Acute kidney injury (Acute) 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) Bipolar 1 disorder (Acute) Cognitive impairment (Acute) COPD (chronic obstructive pulmonary disease) (Chronic) Diabetes mellitus type II, controlled (Acute) Diabetic neuropathy (Acute) Falls frequently (Acute) GERD (gastroesophageal reflux disease) (Chronic) Heart murmur (Acute) History of alcohol abuse (Acute) Hyperthyroidism (Chronic) Hypothyroid (Chronic) Left bundle branch block (Acute) AVANI (obstructive sleep apnea) (Chronic) Pancreatitis (Chronic) Schizoaffective disorder (Acute) Secondary Parkinson disease (Acute) Subdural hematoma (Resolved) small right September 2018 2/2 mechanical fall Tobacco dependence (Acute) Surgical History H/O abdominal surgery (Acute) S/P thoracotomy (Acute) Social History Smoking/Tobacco Use Status: Current every day Tobacco Type: cigarettes Smoking packs per day: 0.5 Smoking cigarettes per day: 10.0 Alcohol Intake: former Drug use: Never current occupation: Disabled. Lives at [facility] Do you feel safe at home: Yes Do you feel safe in your relationship?: Yes Meds Home Medications and Allergies Home Medications Medication Instructions Recorded Confirmed Type clozapine 125 mg PO DAILY 10/07/18 04/25/19 History metformin 1,000 mg PO BID 10/07/18 04/25/19 History Lantus Solostar U-100 Insulin 20 unit SUBCUT HS 02/06/19 04/25/19 History budesonide-formoterol [Symbicort] 2 puff INHALATION BID 02/06/19 04/25/19 History nitroglycerin 1 mg SUBLINGUAL PRN PRN 02/06/19 04/25/19 History olanzapine 2.5 mg PO BID 02/06/19 04/25/19 History divalproex 500 mg tablet,delayed 2,500 mg PO .QHS tab 02/22/19 04/25/19 History release CertaVite Senior-Antioxidant 1 tab PO DAILY 03/04/19 04/25/19 History Combivent Respimat 1 puff INHALATION QID 03/04/19 04/25/19 History Nicotrol 1 inh INHALATION 4-6XD PRN 03/04/19 04/25/19 History acetaminophen 650 mg PO Q4H PRN PRN 03/04/19 04/25/19 History atorvastatin 40 mg PO DAILY 03/04/19 04/25/19 History benztropine [Cogentin] 0.5 mg IM BID 03/04/19 04/25/19 History budesonide-formoterol [Symbicort] 2 puff INHALATION BID 03/04/19 04/25/19 History clozapine 250 mg PO .QHS 03/04/19 04/25/19 History docusate sodium [Colace] 100 mg PO BID PRN 03/04/19 04/25/19 History ergocalciferol (vitamin D2) 50,000 unit PO DIRECTED 03/04/19 04/25/19 History [Vitamin D2] esomeprazole magnesium [Nexium] 20 mg PO DAILY 03/04/19 04/25/19 History ferrous gluconate 324 mg PO BID 03/04/19 04/25/19 History ipratropium-albuterol 3 ml INHALATION BID 03/04/19 04/25/19 History levetiracetam 500 mg PO BID 03/04/19 04/25/19 History levothyroxine 175 mcg PO DAILY 03/04/19 04/25/19 History magnesium oxide 400 mg PO QID 03/04/19 04/25/19 History torsemide 60 mg PO DAILY 03/04/19 04/25/19 History polyethylene glycol 3350 17 g PO DAILY 04/25/19 04/25/19 History senna 17.2 mg PO .QHS 04/25/19 04/25/19 History Allergies Allergy/AdvReac Type Severity Reaction Status Date / Time prednisone Allergy Unknown Unverified 04/25/19 15:02 acetaminophen [From Percocet] Allergy Unverified 04/25/19 15:02 lithium Allergy Unverified 04/25/19 15:02 oxycodone [From OxyContin] Allergy Unverified 04/25/19 15:02 Penicillins Allergy Unverified 04/25/19 15:02 pioglitazone Allergy Unverified 04/25/19 15:02 Sulfa (Sulfonamide Allergy Unverified 04/25/19 15:02 Antibiotics) tramadol Allergy Unverified 04/25/19 15:02 Exam Narrative Exam Narrative: On exam the patient was awake and alert. She reacted to conversation appropriately. She smiled. She was appropriately concerned about her weakness. She had no respiratory difficulties. Her lung sounds were clear on the right and left. Heart sounds were regular. Her abdomen was overall soft and nontender. No HSM was detected. Her lower extremities showed trace edema bilaterally. Neurologically she moves upper and lower extremities without decrement of function. Overall strength and gait was not tested. Results Labs Result diagrams: 04/25/19 15:00 04/25/19 15:00 Labs: Laboratory Results - last 24 hr 04/25/19 04/25/19 04/25/19 15:00 15:00 15:45 WBC 7.23 RBC 4.04 Hgb 12.7 Hct 39.1 MCV 96.8 H MCH 31.4 MCHC 32.5 RDW 13.7 Plt Count 104 L MPV 9.9 Immature Gran % 0.4 Neutrophils % 58.8 Lymphocytes % 26.4 Monocytes % 14.1 Eosinophils % 0.0 Basophils % 0.3 Absolute Neutrophils 4.25 Absolute Lymphocytes 1.91 Absolute Monocytes 1.02 H Absolute Eosinophils 0.00 Absolute Basophils 0.02 Sodium 143 Potassium 3.1 L Chloride 100 Carbon Dioxide 33.0 H Anion Gap 10.0 BUN 29 H Creatinine 1.37 H Estimated GFR/1.73 m2 40.33 Glucose 150 H Lactate Calcium 8.5 Magnesium 1.7 L Total Bilirubin 0.5 AST 38 H ALT 20 Alkaline Phosphatase 60 Ammonia Troponin I < 0.05 Total Protein 7.3 Albumin 2.9 L TSH 0.98 Urine Color Yellow Urine Clarity Clear Urine pH 7.0 Ur Specific [place] 1.015 Urine Protein Negative Urine Ketones Negative Urine Blood Negative Urine Nitrite Negative Urine Bilirubin Negative Urine Urobilinogen 0.2 Ur Leukocyte Esterase Moderate H Urine RBC Negative Urine WBC >50 H Ur Epithelial Cells Negative Urine Crystals Negative Urine Bacteria Moderate Urine Mucus Negative Urine Other Few transitional Ur Culture Indicated? Yes Urine Glucose Negative 04/25/19 04/25/19 16:00 16:00 WBC RBC Hgb Hct MCV MCH MCHC RDW Plt Count MPV Immature Gran % Neutrophils % Lymphocytes % Monocytes % Eosinophils % Basophils % Absolute Neutrophils Absolute Lymphocytes Absolute Monocytes Absolute Eosinophils Absolute Basophils Sodium Potassium Chloride Carbon Dioxide Anion Gap BUN Creatinine Estimated GFR/1.73 m2 Glucose Lactate 2.1 H* Calcium Magnesium Total Bilirubin AST ALT Alkaline Phosphatase Ammonia < 10 L Troponin I Total Protein Albumin TSH Urine Color Urine Clarity Urine pH Ur Specific [place] Urine Protein Urine Ketones Urine Blood Urine Nitrite Urine Bilirubin Urine Urobilinogen Ur Leukocyte Esterase Urine RBC Urine WBC Ur Epithelial Cells Urine Crystals Urine Bacteria Urine Mucus Urine Other Ur Culture Indicated? Urine Glucose Last Vital Signs Temp 36.6 C 04/25/19 19:27 Pulse 75 04/25/19 19:27 Resp 19 04/25/19 19:27 BP 111/61 04/25/19 19:27 Pulse Ox 99 04/25/19 19:27
[2019-04-25] MEDS: Divalproex Sodium 500 MG TAB.ER.24H 2500 MG PO (22:54)
[2019-04-25] MEDS: Insulin Glargine 300 UNITS/3 ML PEN 20 UNITS SC (22:57)
[2019-04-25] MEDS: Mylanta Suspension 30 ML CUP PO (23:04)
[2019-04-26] VITALS (12 sets, daily range): BP systolic 111–149; BP diastolic 64–91; PULSE 60–87; RESP 2–22; TEMP 36–37; O2SAT 95–100
--- NOTE | 2019-04-26 | DI.RAD_ITS ---
EXAM: XR RIBS RT W PA LAT CHEST CLINICAL HISTORY: suspected aspiration pneumonia. TECHNIQUE: 2D digital imaging was performed. COMPARISON: XR CHEST 2V PA LATERAL from 04/25/2019 FINDINGS: LUNGS: Clear. No pleural abnormality seen. HEART: Normal. MEDIASTINUM: Normal. OTHER FINDINGS:Normal. BONE:Normal. IMPRESSION: No acute pulmonary findings.
[2019-04-26] MEDS: Levothyroxine 175 MCG TAB PO (05:43)
[2019-04-26] MEDS: POTASSIUM CHLORIDE/0.9% NACL 1,000 ML 125 MEQ IV ×2 (05:43→15:34)
[2019-04-26 07:12] LABS: Abs Immature Grans 0.03 k/cumm (0.0-0.09); Absolute Basophil Count 0.03 k/cumm (0.0-0.2); Absolute Lymphocyte Count 2.37 k/cumm (1.2-3.4); Absolute Monocyte Count 0.82 k/cumm (0.11-0.7); Absolute Neutrophil Count 2.33 k/cumm (1.2-6.7); Basophils % 0.5; HGB 10.5 g/dL (12.0-15.5); Immature Grans % 0.5 %; Lymphocytes % 42.5; Mean Corp. HGB Concentration 32.8 g/dL (32.0-36.0); Mean Corpuscular Hemoglobin 31.8 pg (27.0-33.0); Mean Platelet Volume 9.6 fL (8.0-11.0); Monocytes % 14.7; Neutrophils % 41.8; Platelet Count 107 x1000/uL (130-400); RBC Distribution Width 13.5 % (11.7-14.6); White Blood Cell Count 5.58 k/cumm (4.4-10.8)
[2019-04-26 07:32] LABS: Anion Gap 7.5 mmol/L (3-11); BUN 20 mg/dL (7-18); CO2 33.5 mmol/L (21.0-32.0); CREATININE 0.95 mg/dL (0.55-1.02); Calcium 8.1 mg/dL (8.5-10.1); Chloride 105 mmol/L (98-107); Glucose 112 mg/dL (74-106); Magnesium 1.7 mg/dL (1.8-2.4); Potassium 3.2 mmol/L (3.5-5.1); Sodium 146 mmol/L (136-145)
[2019-04-26 08:07] LABS: VALPROIC ACID 89.4 ug/mL (50-100)
[2019-04-26] MEDS: Polyethylene Glycol 3350 17 GM PACKET PO (08:53)
[2019-04-26] MEDS: Magnesium Oxide 400 MG TAB PO ×4 (09:06→20:05)
[2019-04-26] MEDS: Esomeprazole 20 MG CAPCR PO (09:06)
[2019-04-26] MEDS: Albuterol/Ipratropium 3 ML UPD VIAL IH ×2 (09:31→20:06)
[2019-04-26] MEDS: Atorvastatin 40 MG TAB PO (09:39)
[2019-04-26] MEDS: Budesonide/Formoterol 160/4.5 6 GM 60 PUFF INH IH ×2 (09:48→20:12)
--- NOTE | 2019-04-26 11:27 | W.NUTCONSULT ---
Date of service: 04/26/19 Time of Service: 11:27 Nutritional Consult ASSESSMENT: 53 year old female admitted s/p fall, with UTI and dehydration. PMH: schizoprenia disorder, DM2. Following Diabetic diet with adequate intake. BMI indicates class 1 obesity. DM consult pending. Does not appear at nutritional risk. MONITORING AND EVALUATION: weight, po intake, labs Time Spent in Nutritional Counseling and Treatment: 0 time spent face to face
--- NOTE | 2019-04-26 11:38 | PGE_ITS ---
Date of Service Date of service: 04/26/19 Time of Service: 11:38 Assessment and Plan Assessment and plan (1) UTI (urinary tract infection): Status: Acute Assessment and plan: Present on admission. Urine C&S is pending as are blood cultures. Continue empiric levofloxacin - dosing verified with pharmacy. (2) Toxic metabolic encephalopathy: Status: Suspected Assessment and plan: In setting of UTI, but also question of side effects/insufficient clearance of the psychiatric medications in setting of PATIENCE. Continue to monitor mental status. Psychiatry consulted. See Schizophrenia. (3) Dehydration: Status: Acute Assessment and plan: Continue gentle IVF. Remains clinically dry (4) Diastolic dysfunction: Status: Chronic Assessment and plan: Continue IVF; continue to hold outpatient diuresis at this time. (5) Diabetes mellitus type II, controlled: Status: Acute Assessment and plan: Follow fingerstick blood sugars. Carbohydrate controlled diet. (6) Schizophrenia: Status: Suspected Assessment and plan: The patient has a listed history of bipolar 1 d/o, schizoaffective d/o. There is a clinical suspicion for schizophrenia. Given frequent episodes of lethargy at the [facility] as well as on current admission, will consult psychiatry. The patient will be continued on her clozaril. I am holding the balanace of her psychiatric medications at least for this morning due to her lethargy. We will hopefully be able to resume them tonight. Checking clozaril level. Depakote level slightly higher than patient's baseline - hold until tomorrow. 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 Consult PT. Also, rule out rib fx from recent fall. (8) Electrolyte abnormality: Status: Acute Assessment and plan: Required additional repletion of K and mag this morning. Recheck in am. (9) Dysphagia: Status: Acute Assessment and plan: Check CXR - ?aspiration event. Obtain swallow eval (10) Apneic episode: Status: Acute Assessment and plan: repetitive, chronic and, given patient's weight/BMI, there is a high suspicion for obstructive sleep apnea and central sleep apnea, given her antipsychotic regimen. (11) Rib pain on right side: Status: Acute Assessment and plan: Check Rib series/CXR. Start lidocaine patches and IS. (12) Discharge planning issues: Status: Acute Assessment and plan: full code. Plan is to return to the [facility] once stable. (13) DVT prophylaxis: Status: Acute Assessment and plan: TEDs/SCD's. High risk of falls - abstain from chemical dvt ppx for now Subjective Subjective Interval history since last seen: Ms Blood states she feels a little better, but she cannot tell me what feels better. She reports feeling short of breath, like she can't take a deep breath, and reports rib pain on the right ever since she fell a couple of days ago. Nursing is very concerned that she has been lethargic most of the day today. She did wake up to have breakfast, but her swallowing was of concern for aspiration. Per SNF nursing, the patient [facility] at the [facility] and has difficulty swallowing there also. Nursing also reports that the patient has been having apneic episodes followed by frequent stacked breaths when asleep. Exam Narrative Exam Narrative: General: Obese female, lethargic, arousable, but falls promptly back asleep, A&OX2, forgetful, slow to respond. HEENT: EOMI, MMM Heart: RRR, no m/r/g Lungs: shallow breaths. Coughs when trying to take a deep breath Abdomen: soft, nontender, nondistended Extremities: no e/c/c BLE's Objective Objective Clinical Data: Abnormal lab results 04/25/19 04/25/19 04/25/19 Range/Units 15:00 15:00 15:45 RBC (4.00-5.20) m/cumm Hgb (12.0-15.5) g/dL Hct (36.0-46.0) % MCV 96.8 H (80-95) fL Plt Count 104 L (130-400) x1000/uL Absolute Monocytes 1.02 H (0.11-0.7) k/cumm Sodium (136-145) mmol/L Potassium 3.1 L (3.5-5.1) mmol/L Carbon Dioxide 33.0 H (21.0-32.0) mmol/L BUN 29 H (7-18) mg/dL Creatinine 1.37 H (0.55-1.02) mg/dL Glucose 150 H (74-106) mg/dL Lactate (0.6-1.4) mmol/L Calcium (8.5-10.1) mg/dL Magnesium 1.7 L (1.8-2.4) mg/dL AST 38 H (15-37) U/L Ammonia (11-32) umol/L Albumin 2.9 L (3.4-5.0) g/dL Ur Leukocyte Esterase Moderate H (Negative) Urine WBC >50 H (0-5) HPF 04/25/19 04/25/19 04/26/19 Range/Units 16:00 16:00 06:36 RBC (4.00-5.20) m/cumm Hgb (12.0-15.5) g/dL Hct (36.0-46.0) % MCV (80-95) fL Plt Count (130-400) x1000/uL Absolute Monocytes (0.11-0.7) k/cumm Sodium 146 H (136-145) mmol/L Potassium 3.2 L (3.5-5.1) mmol/L Carbon Dioxide 33.5 H (21.0-32.0) mmol/L BUN 20 H D (7-18) mg/dL Creatinine (0.55-1.02) mg/dL Glucose 112 H (74-106) mg/dL Lactate 2.1 H* (0.6-1.4) mmol/L Calcium 8.1 L (8.5-10.1) mg/dL Magnesium 1.7 L (1.8-2.4) mg/dL AST (15-37) U/L Ammonia < 10 L (11-32) umol/L Albumin (3.4-5.0) g/dL Ur Leukocyte Esterase (Negative) Urine WBC (0-5) HPF 04/26/19 Range/Units 06:36 RBC 3.30 L (4.00-5.20) m/cumm Hgb 10.5 L D (12.0-15.5) g/dL Hct 32.0 L (36.0-46.0) % MCV 97.0 H (80-95) fL Plt Count 107 L (130-400) x1000/uL Absolute Monocytes 0.82 H (0.11-0.7) k/cumm Sodium (136-145) mmol/L Potassium (3.5-5.1) mmol/L Carbon Dioxide (21.0-32.0) mmol/L BUN (7-18) mg/dL Creatinine (0.55-1.02) mg/dL Glucose (74-106) mg/dL Lactate (0.6-1.4) mmol/L Calcium (8.5-10.1) mg/dL Magnesium (1.8-2.4) mg/dL AST (15-37) U/L Ammonia (11-32) umol/L Albumin (3.4-5.0) g/dL Ur Leukocyte Esterase (Negative) Urine WBC (0-5) HPF Vital Signs Temperature 36 C L 04/26/19 04:46 Temperature Source Temporal Artery Scan 04/26/19 04:46 Pulse 65 04/26/19 09:49 Pulse Rhythm Regular 04/26/19 02:37 Pulse 73 04/25/19 18:20 Respiratory Rate 20 04/26/19 09:49 Respiratory Effort Non-Labored 04/26/19 02:37 Respiratory Depth Normal 04/26/19 02:37 Respiratory Pattern Normal 04/26/19 02:37 Blood Pressure 133/79 04/26/19 04:46 Blood Pressure Mean 90 04/25/19 18:16 Pulse Oximetry 100 04/26/19 09:49 Oxygen Delivery Method Room Air 04/26/19 09:31 Oxygen Flow Rate 0 04/26/19 09:31 Pain Level 0 04/25/19 19:27 Intake & Output 04/25/19 04/25/19 04/26/19 11:59 23:59 11:59 Intake Total 2500 / 2500 1730 / 1730 Output Total 1000 / 1000 350 / 350 Balance 1500 / 1500 1380 / 1380 Weight 76 kg 73.7 kg Intake: IV 1999 / 1999 1010 / 1010 Oral 500 / 500 720 / 720 Output: Urine 1000 / 1000 350 / 350 Other: Urine Color Yellow Light Margarita Urine Appearance Clear Clear Urine Odor Normal Voiding Methods Toilet Bedside Commode Incontinent Laboratory Results WBC 5.58 k/cumm (4.4-10.8) 04/26/19 06:36 RBC 3.30 m/cumm (4.00-5.20) L 04/26/19 06:36 Hgb 10.5 g/dL (12.0-15.5) L D 04/26/19 06:36 Hct 32.0 % (36.0-46.0) L 04/26/19 06:36 MCV 97.0 fL (80-95) H 04/26/19 06:36 MCH 31.8 pg (27.0-33.0) 04/26/19 06:36 MCHC 32.8 g/dL (32.0-36.0) 04/26/19 06:36 RDW 13.5 % (11.7-14.6) 04/26/19 06:36 Plt Count 107 x1000/uL (130-400) L 04/26/19 06:36 MPV 9.6 fL (8.0-11.0) 04/26/19 06:36 Immature Gran % 0.5 % 04/26/19 06:36 Neutrophils % 41.8 04/26/19 06:36 Lymphocytes % 42.5 04/26/19 06:36 Monocytes % 14.7 04/26/19 06:36 Eosinophils % 0.0 04/26/19 06:36 Basophils % 0.5 04/26/19 06:36 Absolute Neutrophils 2.33 k/cumm (1.2-6.7) 04/26/19 06:36 Absolute Lymphocytes 2.37 k/cumm (1.2-3.4) 04/26/19 06:36 Absolute Monocytes 0.82 k/cumm (0.11-0.7) H 04/26/19 06:36 Absolute Eosinophils 0.00 k/cumm (0.0-0.7) 04/26/19 06:36 Absolute Basophils 0.03 k/cumm (0.0-0.2) 04/26/19 06:36 Sodium 146 mmol/L (136-145) H 04/26/19 06:36 Potassium 3.2 mmol/L (3.5-5.1) L 04/26/19 06:36 Chloride 105 mmol/L (98-107) 04/26/19 06:36 Carbon Dioxide 33.5 mmol/L (21.0-32.0) H 04/26/19 06:36 Anion Gap 7.5 mmol/L (3-11) 04/26/19 06:36 BUN 20 mg/dL (7-18) H D 04/26/19 06:36 Creatinine 0.95 mg/dL (0.55-1.02) 04/26/19 06:36 Estimated GFR/1.73 m2 >= 60.00 (mL/min/1.73m2) 04/26/19 06:36 Glucose 112 mg/dL (74-106) H 04/26/19 06:36 Lactate 2.1 mmol/L (0.6-1.4) H* 04/25/19 16:00 Calcium 8.1 mg/dL (8.5-10.1) L 04/26/19 06:36 Magnesium 1.7 mg/dL (1.8-2.4) L 04/26/19 06:36 Total Bilirubin 0.5 mg/dL (0.2-1.0) 04/25/19 15:00 AST 38 U/L (15-37) H 04/25/19 15:00 ALT 20 U/L (14-59) 04/25/19 15:00 Alkaline Phosphatase 60 U/L (46-116) 04/25/19 15:00 Ammonia < 10 umol/L (11-32) L 04/25/19 16:00 Troponin I < 0.05 ng/Ml (<0.06) 04/25/19 15:00 Total Protein 7.3 g/dL (6.4-8.2) 04/25/19 15:00 Albumin 2.9 g/dL (3.4-5.0) L 04/25/19 15:00 TSH 0.98 uIU/mL (0.36-3.74) 04/25/19 15:00 Urine Color Yellow (Yellow) 04/25/19 15:45 Urine Clarity Clear (Clear) 04/25/19 15:45 Urine pH 7.0 (5-8) 04/25/19 15:45 Ur Specific [place] 1.015 (1.005-1.025) 04/25/19 15:45 Urine Protein Negative mg/dL (Negative) 04/25/19 15:45 Urine Ketones Negative mg/dL (Negative) 04/25/19 15:45 Urine Blood Negative (Negative) 04/25/19 15:45 Urine Nitrite Negative (Negative) 04/25/19 15:45 Urine Bilirubin Negative (Negative) 04/25/19 15:45 Urine Urobilinogen 0.2 EU/dL (Up TO 0.2) 04/25/19 15:45 Ur Leukocyte Esterase Moderate (Negative) H 04/25/19 15:45 Urine RBC Negative HPF (0-2) 04/25/19 15:45 Urine WBC >50 HPF (0-5) H 04/25/19 15:45 Ur Epithelial Cells Negative HPF (Negative) 04/25/19 15:45 Urine Crystals Negative HPF (Negative) 04/25/19 15:45 Urine Bacteria Moderate HPF (Negative) 04/25/19 15:45 Urine Mucus Negative (Negative) 04/25/19 15:45 Urine Other Few transitional (Negative) 04/25/19 15:45 Ur Culture Indicated? Yes 04/25/19 15:45 Urine Glucose Negative mg/dL (Negative) 04/25/19 15:45 Total Valproic Acid 89.4 ug/mL (50-100) 04/26/19 06:36
[2019-04-26] MEDS: Insulin Aspart 300 UNITS/3 ML PEN SC (13:00)
[2019-04-26] MEDS: Normal Saline Flush 10 ML SYR IVP (13:01)
[2019-04-26] MEDS: Lidocaine 5% Patch 1 PATCH TP (13:01)
[2019-04-26] MEDS: MAGNESIUM SULFATE 2 GM/50 ML BAG IVPB (13:01)
[2019-04-26 13:06] LABS: *AMPHETAMINES SCREEN URINE Negative (Negative); *BARBITURATES SCREEN URINE Negative (Negative); *BENZODIAZEPINES SCREEN URINE Negative (Negative); Cannabinoids THC Negative (Negative); Cocaine Screen,Urine Negative (Negative); METHADONE URINE SCREEN Negative (Negative); OPIATES URINE SCREEN Negative (Negative)
[2019-04-26 13:07] LABS: Tricyclic Antidepressants Negative (Negative)
--- NOTE | 2019-04-26 14:27 | CHAPLAIN ---
Danette was in her bed, sort of slumped to the side, when I visited. She said she was comfortable. She said she hasn't felt well for a while and asked if Anselmo would want her not to feel well. We talked about that for a bit. In the end, I suggested that Anselmo wants us all to feel well, and sometimes our bodies don't do what we want them to do. She seemed appreciative of the prayer shawl. Danette was soft spoken. It was difficult to understand her at times. She told me she is originally from the [facility]. I will continue to visit.
[2019-04-26] MEDS: POTASSIUM CHLORIDE 20 MEQ/100 ML BAG 50 MEQ IVPB ×2 (15:34→17:35)
--- NOTE | 2019-04-26 15:38 | IN_ITS ---
Date of service: 04/26/19 Time of Service: 02:55 PT Notes Visit Reasons: UTI,LACTATE ELEVATED SERUM,ALTERED MENTAL STATUS Physical Therapy Inpatient Initial Evaluation Date: 04/26/2019 Referring Doctor: Sabra Olivares MD PT Orders: PT CONSULT: Limited ability Precautions: Fall. Standard. Activity as tolerated. Patient Profile/Admitting Diagnosis: Patient is a 53-year-old female who presented to the ED on 04/25/2019 with chief presentation of altered mental status 4 days prior to ED admission, fatigue, garbled speech and lethargy. Patient was diagnosed with urinary tract infection with suspected toxic metabolic encephalopathy, suspected schizophrenia, dehydration, diastolic dysfunction, type 2 diabetes mellitus, frequent falls with rib fracture from most recent fall, electrolyte abnormalities, secondary Parkinsonism, and dysphasia. Referral to physical therapy services was made to address impairments in strength, balance, and mobility level in anticipation of discharge back to SNF when medically cleared to do so. PMHX: Medical History Acute kidney injury (Acute) 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) Bipolar 1 disorder (Acute) Cognitive impairment (Acute) COPD (chronic obstructive pulmonary disease) (Chronic) Diabetes mellitus type II, controlled (Acute) Diabetic neuropathy (Acute) Falls frequently (Acute) GERD (gastroesophageal reflux disease) (Chronic) Heart murmur (Acute) History of alcohol abuse (Acute) Hyperthyroidism (Chronic) Hypothyroid (Chronic) Left bundle branch block (Acute) AVANI (obstructive sleep apnea) (Chronic) Pancreatitis (Chronic) Schizoaffective disorder (Acute) Secondary Parkinson disease (Acute) Subdural hematoma (Resolved) small right September 2018 2/2 mechanical fall Tobacco dependence (Acute) Surgical History H/O abdominal surgery (Acute) S/P thoracotomy (Acute) Social History/Home Situation: Patient is a resident of the [facility] and uses a 4 wheeled walker for all ambulation activity. Equipment Owned/DME: [employer] Subjective: Patient reported pain in her back area after ambulation activity. She wanted to play the game called Sorry. Objective: General Observation: IV in right UE. Telemetry monitoring in place. Mental Status: Patient is able to follow single step commands. She recalls sad events from the past. She states that she can recite the [place]ail [place] 10 times. Pain: Complained of low back pain after gait activity. ROM: Right Upper Extremity: Shoulder Flexion WFL. Shoulder abduction WFL. Elbow flexion WFL. Wrist flexion WFL. Opening and closing of hand WFL. Left Upper Extremity: Shoulder Flexion WFL. Shoulder abduction WFL. Elbow flexion WFL. Wrist flexion WFL. Opening and closing of hand WFL. Right Lower Extremity: Hip flexion WFL. Hip abduction WFL. Knee flexion WFL. Ankle dorsiflexion WFL. Ankle plantarflexion WFL. Left Lower Extremity: Hip flexion WFL. Hip abduction WFL. Knee flexion WFL. Ankle dorsiflexion WFL. Ankle plantarflexion WFL. Strength: Right Upper Extremity: Shoulder flexors 4/5. Shoulder abductors 4/5. Elbow flexors 4/5. Elbow extensors 4/5. Property And Equipment Clerk strong. Left Upper Extremity: Shoulder flexors 4/5. Shoulder abductors 4/5. Elbow flexors 4/5. Elbow extensors 4/5. Property And Equipment Clerk strong. Right Lower Extremity: Hip flexors 3+/5. Hip abductors 3+/5. Knee flexors 3+/5. Knee extensors 3+/5. Ankle dorsiflexors 3+/5. Ankle plantarflexors 3+/5. Left Lower Extremity: Hip flexors 3+/5. Hip abductors 3+/5. Knee flexors 3+/5. Knee extensors 3+/5. Ankle dorsiflexors 3+/5. Ankle plantarflexors 3+/5. Sensation: Intact as to pain and pressure on bilateral lower extremities. Bed Mobility/Transfers: Sit to stand CGA Stand to sit CGA Bed to chair CGA Chair to bed CGA Gait: Patient tolerated level surface ambulation of 80 feet +100 feet +60 feet using FWW with FWB requiring CGA from PT and wheelchair follow as well as IV pole management from PROGRAMS DIRECTOR. Reciprocal step to gait pattern observed. Required cueing to look up head as patient looks down. PT needed assistance with a walker management specially during directional changes. Balance: Static Sitting: Normal Dynamic Sitting: Normal Static Standing: Fair Dynamic Standing: Fair Special Tests: Mobility Limitations Standardized Measure [facility] 6 clicks Basic Mobility Inpatient Short Form: Raw Score: 18 CMS Score: 47% deficit Informed Consent/Education: Patient instructed in purpose of PT consult and plan of care. Assessment: Patient presents with functional mobility decline and increased risk for falls with impairment level findings and functional deficits listed below. Patient is a 53-year-old female who presented to the ED on 04/25/2019 with chief presentation of altered mental status 4 days prior to ED admission, fatigue, garbled speech and lethargy. Patient was diagnosed with urinary tract infection with suspected toxic metabolic encephalopathy, suspected schizophrenia, dehydration, diastolic dysfunction, type 2 diabetes mellitus, frequent falls with rib fracture from most recent fall, electrolyte abnormalities, secondary Parkinsonism, and dysphasia. Referral to physical therapy services was made to address impairments in strength, balance, and mobility level in anticipation of discharge back to SNF when medically cleared to do so. Patient presents with clinical signs and symptoms consistent with current/admitting diagnoses that have resulted to mobility limitations, gait instability, generalized weakness, and impairment of motor control as demonstrated by the following impairment level findings: 1. Decreased strength to B LE major muscle groups 2. Impaired standing balance 3. Impaired activity tolerance Impairments are contributing to the following functional limitations: 1. Increased dependence with transfers 2. Inability to safely ambulate without assistive device and physical assistance 3. Increase completion time for mobility ADL performance 4. Increased fall risk 5. Inability to negotiate steps alone safely Patient is assessed as a [address]37 moderate complexity based on the following: History: 53-year-old female with past medical history listed above, impairment level findings, functional limitations, and [place] AM PAC deficits score of 47% Examination: Demonstrable impairment in strength, balance, and range of motion with underlying impairments and functional limitations as documented above Presentation: Evolving Decision Makin moderate complexity Goals: Goals X1 week 1. Supine-Sit independent 2. Sit-Supine independent 3. Sit-Stand independent 4. Stand-Sit independent 5. Bed-Chair independent 6. Chair-Bed independent 7. Independent gait on level surface with use of least restrictive device for at least 300 feet without report of pain nor dyspnea 8. Good static and dynamic standing balance/tolerance Plan of Care/Treatment Plan: 1-2x/day, 7 days/week x 1 week. Plan of care has been reviewed with the PROGRAMS DIRECTOR providing the service under Physical Therapy direction. Initiate Physical Therapy intervention for strengthening, bed mobility, transfers, gait, stairs, balance training, use of assistive device. DISCHARGE RECOMMENDATIONS: Patient will return to senior care facility for continued skilled physical therapy services in order to progress mobility level, strength, and balance in preparation for a safe discharge to home. TREATMENT CODE/TIME: 9716 2 x 30 minutes beginning at 2:55 PM. Thank you very much for this referral. Lorena Piedra PT, DPT, CLT [facility] [place], [place]
--- NOTE | 2019-04-26 18:03 | PDOC.CMIN ---
- If Service Date Differs Date of service: 04/26/19 Time of Service: 18:03 Care Management Initial Assess REASON FOR HOSPITALIZATION:: UTI PAST MEDICAL HISTORY/PAST SURGICAL HISTORY:: Medical History: Acute kidney injury (Acute). 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). Bipolar 1 disorder (Acute). Cognitive impairment (Acute). COPD (chronic obstructive pulmonary disease) (Chronic). Diabetes mellitus type II, controlled (Acute). Diabetic neuropathy (Acute). Falls frequently (Acute). GERD (gastroesophageal reflux disease) (Chronic). Heart murmur (Acute). History of alcohol abuse (Acute). Hyperthyroidism (Chronic). Hypothyroid (Chronic). Left bundle branch block (Acute). AVANI (obstructive sleep apnea) (Chronic). Pancreatitis (Chronic). Schizoaffective disorder (Acute). Secondary Parkinson disease (Acute). Subdural hematoma (Resolved). small right September 2018 2/2 mechanical fall. Tobacco dependence (Acute). Surgical History: H/O abdominal surgery (Acute). S/P thoracotomy (Acute) PREVIOUS FUNCTIONAL STATUS/SOCIAL/FAMILY SUPPORTS:: Estephanie is currently living at [facility]. She came there initially from [facility] for rehab about a year ago. Before that she had been living in a fdc ([facility]) in [place] . Estephanie left [facility] after a few weeks, returned to [place] and then returned to the [facility]. Estephanie has a long history of mental health issues. She was once and used to work but she has been for about 10 yeasrs and is now disabled. She is independent with care. Estephanie has a mother and a brother and her brother is her DPOA. She also has a close relationship with a former caregiver at [facility] [place], Vickey Castañeda, who is listed as her contact. CURRENT FUNCTIONAL STATUS:: Estephanie was sitting up in a chair when CM met with her. She was pleasant and engaged readily in conversation with CM. Estephanie shared that she enjoys living at [facility] but because they won't let her smoke, she may try to find a new place to live. estephanie enjoys wordfinds and coloring and was provided with materials to do both. ADVANCE DIRECTIVES:: Per Aranza Wilkinson APRN at the [facility] Estephanie has Advanced Directives and her brother is her HCA. Has patient been provided with information about the portal?: No Did the patient sign up for the portal?: No CODE STATUS:: Full Code INSURANCE COVERAGE / FINANCIAL ISSUES:: Medicare. Medicaid CURRENT HOME/COMMUNITY SERVICES/EQUIPMENT:: lives at [facility] PRIMARY CARE PHYSICIAN:: Mikayla Torres PATIENT/FAMILY EDUCATION NEEDS:: Discharge plan, limitations, Ask Me Three TRANSPORTATION:: via [facility] w/c van most likely PLAN:: Estephanie will return to the [facility] when medically stable. She will follow up with their plan of care and providersd. estephanie will likely transport via [facility] w/c van. CM will continue to support patient, [id number] and discharge planning needs.
--- NOTE | 2019-04-26 18:37 | PDOC.CMPRO ---
- If Service Date Differs Date of service: 04/26/19 Time of Service: 18:37 Care Management Progress Note CM reached out to Aranza Wilkinson APRN at [facility] for historical information about Estephanie's medication regimen. She has been on Zyprexa and Clozaril for many years according to Aranza. She shared that before coming to [facility] a year ago, she had been living at [facility], a alf in [place]. There she had a nurse that was her primary caregiver who has much more information. Her name is Vickey Castañeda and she is listed as Estephanie's main contact. Her number is [phone]. In addition, Aranza shared that Estephanie is very sensitive to any medication changes. The only change Aranza has made was to increase her Clozaril by 25mg about 3-4 weeks ago when Estephanie seemed less regulated. She presented as having hyper, almost manic behavior and then exhibited an apparent inability to walk and move well which was thought to have a strong behavioral component.Aranza also shared that Estephanie is extremely sensitive to Ativan and if used, should be given at a very low dose such as 0.25mg.
[2019-04-26] MEDS: levoFLOXacin 750 MG/150 ML BAG 100 MG IVPB (18:38)
[2019-04-26] MEDS: OLANZapine 5 MG TAB 2.5 MG PO (20:05)
[2019-04-26] MEDS: levETIRAcetam 500 MG TAB PO (20:05)
[2019-04-26] MEDS: Benztropine 1 MG TAB 0.5 MG PO (20:11)
[2019-04-26] MEDS: Insulin Glargine 300 UNITS/3 ML PEN 20 UNITS SC (21:44)
[2019-04-27] VITALS (7 sets, daily range): BP systolic 124–168; BP diastolic 70–87; PULSE 76–89; RESP 8–19; TEMP 36–36.8; O2SAT 96–99
[2019-04-27] MEDS: Lidocaine Patch Removal 1 EACH TP (00:11)
--- NOTE | 2019-04-27 05:20 | NUR.NOTE ---
patient has not slept since 299 when this nurse's shift started-she is in bed and states she is comfortable - she is constantly talking - she denies needs when asked. Will report this to the on coming shift
[2019-04-27] MEDS: Levothyroxine 175 MCG TAB PO (06:22)
[2019-04-27] MEDS: Benztropine 1 MG TAB 0.5 MG PO ×2 (07:39→20:01)
[2019-04-27] MEDS: OLANZapine 5 MG TAB 2.5 MG PO ×2 (07:39→20:01)
[2019-04-27] MEDS: Atorvastatin 40 MG TAB PO (07:39)
[2019-04-27] MEDS: Magnesium Oxide 400 MG TAB PO ×4 (07:40→20:01)
[2019-04-27] MEDS: levETIRAcetam 500 MG TAB PO ×2 (07:40→20:01)
[2019-04-27] MEDS: Esomeprazole 20 MG CAPCR PO (07:40)
[2019-04-27 08:04] LABS: Abs Immature Grans 0.07 k/cumm (0.0-0.09); Absolute Basophil Count 0.04 k/cumm (0.0-0.2); Absolute Lymphocyte Count 2.51 k/cumm (1.2-3.4); Absolute Monocyte Count 0.78 k/cumm (0.11-0.7); Absolute Neutrophil Count 2.32 k/cumm (1.2-6.7); Basophils % 0.7; HCT 36.4 % (36.0-46.0); Immature Grans % 1.2 %; Lymphocytes % 43.9; Mean Corpuscular Hemoglobin 31.8 pg (27.0-33.0); Mean Corpuscular Volume 96.6 fL (80-95); Mean Platelet Volume 9.5 fL (8.0-11.0); Monocytes % 13.6; Neutrophils % 40.6; Platelet Count 121 x1000/uL (130-400); RBC 3.77 m/cumm (4.00-5.20); RBC Distribution Width 13.5 % (11.7-14.6); White Blood Cell Count 5.72 k/cumm (4.4-10.8)
[2019-04-27 08:16] LABS: Anion Gap 8.5 mmol/L (3-11); BUN 11 mg/dL (7-18); CO2 29.5 mmol/L (21.0-32.0); Calcium 8.8 mg/dL (8.5-10.1); Chloride 107 mmol/L (98-107); Glucose 106 mg/dL (74-106); Potassium 3.6 mmol/L (3.5-5.1); Sodium 145 mmol/L (136-145)
--- NOTE | 2019-04-27 08:55 | PT.INNT ---
Date of service: 04/27/19 Time of Service: 08:40 PT Notes Visit Reasons: UTI,LACTATE ELEVATED SERUM,ALTERED MENTAL STATUS About 10 minutes were spent with attempting patient engagement with PT for morning session, but no avail. Patient exhibited manic behavior, emotional lability, and hypersexuality. Student nurse was present throughout attempt at participating to walk with PT and student PT. Patient will be seen later for the afternoon session to determine appropriateness of continued skilled services.
[2019-04-27] MEDS: Polyethylene Glycol 3350 17 GM PACKET PO (08:57)
--- NOTE | 2019-04-27 09:07 | PSYCO_ITS ---
Date of service: 04/27/19 Time of Service: 08:40 History of Present Illness Narrative: New Impatient Psychiatric Consultation Information source: Patient, chart, medical team Primary Care Provider: Connie Torres Reason for consultation: Sabra Olivares MD requested psychiatric consultation on Danette Shook to help with management of psychiatric medication in setting of acute mental status change. History Of Present Illness: Danette Shook is a 53 year old female with schizoaffective disorder bipolar type admitted to [facility] med/surg service two days ago on 04/25/2019 for altered mental status, lethargy, and recent fall with head CT negative for new intracranial bleed. Per Dirk Davies's History and Physical exam on admission to the med/surg floor: Acute mental status change/lethargyHer labs showed a low potassium and low magnesium. The urinalysis showed moderate leukocyte esterase and greater than 50 white cells. Narrative: This is a 53-year-old female that resides at the [facility]. She has had about a month long period of worsening lethargy. The staff noticed that over the last 4 days her mental status has been altered. She has been so fatigued that her speech is been garbled, she has been hitting her head on the table during mealtimes, she has been overall more lethargic. She had a witnessed fall 1 day prior to admission. No injuries were reported. She has had difficulty walking recently. In the emergency room she was lethargic but was able to interact with staff reasonably well. There were no focal neurologic deficits. Her labs showed low potassium and low magnesium. Her urine showed moderate leukocyte esterase and greater than 50 white cells. She is presumed to have a urinary tract infection as a possible explanation for her mental status change. She is receiving IV fluids and IV levofloxacin. She is admitted acutely to the MedSurg floor. Per nurse Mercado: Talked with male nurse at [facility] who is her primary nurse and he knew her at [facility] before it closed. She cycles between couple weeks of lethargy and depression and then cycle into manic phase, which opens the door for schizoprenia to get worse. Yesterday she presented to [facility] as very lethargic, we held cogentin, olanzapine, keppra. Later on in the day time was more interactive, had good report iwth our nurse without yelling, very pleasant and sweet, talked about a stay at [facility], says she does wants to talk with psychiatry and wants to get better, and wants assistance with medications. This morning she is manic. Got only 50mg clozapine last night rather than 250mg due to confusion in instructions on order, and her depakote was held due to higher depakote level and sedation. This morning hypersexual, chatty, labile, she reports seeing people standing outside her window, talks about Satan. Today is oriented to self only, but does recognize her nurse from yesterday. At [facility] they were waiting for depression cycle to change and go back marjan. She has COPD, CHF, currently has UTI, Yesterday reported feeling weak, while walking from bed to chair with assist and sank to floor without innjury. She has refused her IV yesterday. Yesterday needed crushed pills, today is chucking whole pills back without caution. She does have speech therapy ordered for today. She needs cuing with using water, reminders to swallow. Outpatient neurology consultation note from Dr. Zulma Whitaker from 02/22/2019 states: Ms. Shook is a 53-year-old, right-handed woman with longstanding mood disorder on chronic antipsychotics complicated by tardive dyskinesia who was referred to the neurology clinic for gait imbalance and falls. Her neurological exam was significant for mild lower extremity bradykinesia, left upper extremity cogwheel rigidity, a shuffling gait with reduced arm swing, and en bloc turning as well as reduced ankle reflexes. Her gait imbalance is multifactorial secondary to what appears to be a neuroleptic i nduced parkinsonism plus a neuropathy due to a combination of type 2 diabetes and remote alcohol abuse. This is further complicated by disinhibition from what appears to be cognitive deficits as well (possible acute on chronic from recent TBI/SDH vs chronic only). Today patient was heard shouting in her room in nonthreatening way from quite a distance down the hallway. She was quick to focus her attention on me when I entered her room and she said Doesn't she look like Alysha! She was pleased to learn I was a psychiatrist but was nearly unable to attend to a conversation as her pressured speech was very tangential. Much of the content was about we're going to democrat tonight! and about how she was Carlota and her brother was Anselmo Tejada. Her attention could be brought back to the moment when I spoke her name loudly. When I asked, Do you think you are manic? She responded, Yes, I feel better than I have in a long time! When I told her she did not get her usual dose of clozapine last night she said oh I need it. When I said that we were going to give her some extra this morning, she said please! I really need help. I need my medication. I asked if she were suicidal or if she wanted to she stated, No, I haven't been suicidal for many years. She endorsed not sleeping last night, and auditory and visual hallucinsations of seeing Shania or her brother in her window and hearing him talk to her. After each of these brief logical answers to my questions her speech became nonlogical and tangential with bouts of laughing and anger and crying and she had to be redirected back to answer the next question. Her manner was not frankly hypersexual with me but her she was coy and teasing about what she might wear to the [employer]. Substances: - alcohol: per chart, remote history of alcohol abuse - tobacco: not currently while at the [facility] - Marijuana: none currently - other illicits/pills: none currently Safety: - current suicidal/homicidal/violent ideations: denies - guns in home or access to weapons: none PAST PSYCHIATRIC HISTORY: Hospitalizations: numerous psychiatric hospitalizations Suicide attempts: uncertain, patient reports remote history of suicidality Prescribers: currently General medical providers at the [facility] maintaining long-time med regimen Medications: - depakote 2500mg HS - clozapine 125mgAM 250mg PM, morning dose increased at the [facility] from 100mg to 125mg due to patient's increased agitation and delusions - olanzapine 2.5mg - cogentin 2mg daily Therapist: none currently Family history: - unknown Social history: - currently lives at the [facility], previously lived at [facility] in [place] REVIEW OF SYSTEMS: patient would not participate answering questions about pain or symptoms. Psych: see above Allergies: see chart MENTAL STATUS EXAM: Constitutional: sitting up in chair in hospital clothing with breakfast uneaten in front of her, awake, alert. Good eye contact. Attitude: cooperative, engageable Psychomotor: +agitation with a lot of dramatic gesturing of arms and hand motions, related to content. At one point threatened to punch toward me as she was acting out what she was saying she was going to do to someone else. Speech: pressured, loud volume with unprovoked shouting at times and normal prosody. No articulation problems noted. Associations: very loose Thought process: logical and directed briefly to specific questions but quickly becomes tangential and illogical Thought content with psychosis, delusions. No suicidal or homicidal ideations endorsed or evident by behaviors Hallucinations, both visual and auditory endorsed by patient and evident to staff. Auditory hallucinations do not seem to be command hallucinations but communications from her brother/Anselmo Tejada. Mood: I feel GREAT! I'm the happiest I've been in a long time! Affect: very labile swinging from elated to tears to angry shouting from moment to moment. Attention/Concentration: poor/poor, Judgment/insight: mostly impaired, however, she endorses being manic and needing medication. Oriented to self only, unable to retain information about today's date and of place. Says she just came from [facility] and denies having just come from the [facility]. Language appropriate to age and education Fund of knowledge appropriate to age and education Memory impaired Other cognitive testing: none Assessment and Plan Assessment and plan (1) Schizoaffective disorder: Status: Acute Assessment and plan: Danette Shook is a 53 year old female with past psychiatric history of schizoaffective disorder bipolar type and past medical history of diabetes mellitus type II, congestive heart failure, COPD, and secondary Parkinson disease who was sent from the [facility] to [facility] ED on 04/25/2019 with concerns of worsening lethargy/altered mental status and increasing weakness. Work up revealed a UTI, no new intracranial bleed, and a higher than her usual depakote level. Due to concern for altered mental status possibly related to UTI and possibly related to difficulty clearing psychiatric medications, depakote, benztropine, levetiracetam and olanzapine were held. Her clozapine dose was continued as per outpatient regimen, however, last night a med dispensing error caused her to receive only 1/5 (50mg) of her usual nighttim e dose of 250mg after which she did not sleep at all and this morning is floridly manic. She is not showing any signs of lethargy. Her UTI is being treated with levofloxacin. Recommendations: - continue to treat UTI, recheck EKG to be sure no Qtc prolongation which can occur with combination of clozapine and levofloxacin. - restart all home medications now that sedation appears cleared and she is quite manic. - given that clozapine was inadvertently underdosed last night and she is very manic today, give an extra 125mg this morning on top of the 125mg already given. (already done at the time of this writing and patient is noted to be calmer but still manic) - recheck depakote level in five days to be sure dose is not going higher - clozapine/norclozapine level drawn (now pending not likely to be accurate given insufficient dosing last night. - I agree with outpatient sleep study plan, if it can't be assess inpatient, as central or obstructive sleep apnea could be worsening her psychiatric symptoms. Safety: low risk for intentional harm to self or others, however, in her manic and psychotic state she is labile and impulsive with poor judgment and poor self-control thus she may cause unintentional harm to herself (by trying to stand and walk, drink and eat without caution, etc) or harm to staff (throw a punch in her dramatic enactments, for example). I will continue to be involved in her care while she is here at [facility]. Visit Statistics Total Visit Minutes: 55 Visit Time Allocation >50% of face to face visit spent in counseling (Extensive teaching, explanation and instructions. Counseling as appropriate. Review of plans, and discussion concerning medical problems dealt with at this visit. Discussion of benefits/risks of treatment, anticipated course of events, potential medication side effects, options, alternatives, and follow up plans. Questions were solicited and answered, and the patient verbalized understanding.), and/or coordination of care. [facility] Medical History Acute kidney injury (Acute) 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) Bipolar 1 disorder (Acute) Cognitive impairment (Acute) COPD (chronic obstructive pulmonary disease) (Chronic) Diabetes mellitus type II, controlled (Acute) Diabetic neuropathy (Acute) Diastolic dysfunction (Chronic) Falls frequently (Acute) GERD (gastroesophageal reflux disease) (Chronic) Heart murmur (Acute) History of alcohol abuse (Acute) Hyperthyroidism (Chronic) Hypothyroid (Chronic) Left bundle branch block (Acute) AVANI (obstructive sleep apnea) (Chronic) Pancreatitis (Chronic) Schizoaffective disorder (Acute) Secondary Parkinson disease (Acute) Subdural hematoma (Resolved) small right September 2018 2/2 mechanical fall Tobacco dependence (Acute) Surgical History H/O abdominal surgery (Acute) S/P thoracotomy (Acute) Social History Smoking/Tobacco Use Status: Current every day Tobacco Type: cigarettes Smoking packs per day: 0.5 Smoking cigarettes per day: 10.0 Alcohol Intake: former Drug use: Never current occupation: Disabled. Lives at [facility] Do you feel safe at home: Yes Do you feel safe in your relationship?: Yes Results Last Vital Signs Temp 36.6 C 04/27/19 08:31 Pulse 89 04/27/19 08:31 Resp 16 04/27/19 08:31 BP 146/70 H 04/27/19 08:31 Pulse Ox 98 04/27/19 08:31 Labs Result diagrams: 04/27/19 07:35 04/27/19 07:35 Labs: Laboratory Results - last 24 hr 04/25/19 04/27/19 04/27/19 15:45 07:35 07:35 WBC 5.72 RBC 3.77 L Hgb 12.0 Hct 36.4 MCV 96.6 H MCH 31.8 MCHC 33.0 RDW 13.5 Plt Count 121 L MPV 9.5 Immature Gran % 1.2 Neutrophils % 40.6 Lymphocytes % 43.9 Monocytes % 13.6 Eosinophils % 0.0 Basophils % 0.7 Absolute Neutrophils 2.32 Absolute Lymphocytes 2.51 Absolute Monocytes 0.78 H Absolute Eosinophils 0.00 Absolute Basophils 0.04 Sodium 145 Potassium 3.6 Chloride 107 Carbon Dioxide 29.5 Anion Gap 8.5 BUN 11 D Creatinine 0.90 Estimated GFR/1.73 m2 >= 60.00 Glucose 106 Calcium 8.8 Magnesium 2.0 Urine Opiates Screen Negative Urine Methadone Screen Negative Ur Barbiturates Screen Negative Ur Tricyclics Screen Negative Ur Amphetamines Screen Negative U Benzodiazepines Scrn Negative Urine Cocaine Screen Negative Ur THC Screen Negative Depakote level was 89, up from 80 and 77 on previous two draws. Clozapine level still pending.
[2019-04-27] MEDS: Budesonide/Formoterol 160/4.5 6 GM 60 PUFF INH IH ×2 (11:26→20:00)
[2019-04-27] MEDS: Lidocaine 5% Patch 1 PATCH TP (11:40)
--- NOTE | 2019-04-27 13:00 | CMPROGNOTE_ITS ---
- If Service Date Differs Date of service: 04/27/19 Time of Service: 13:00 Care Management Progress Note S/O: CM confirmed with the [facility] Danette's dose of Clozaril which is 125mg in the morning and 250mg at night. The [facility] is not able to send over the medication however the provider is willing to call the refill in to [facility] in [place] and it will be picked up and brought to [facility] pharmacy. Danette remains acute at this time, she is having delusions including seeing her brother outside the window which she claims is Satan. Patient does holler out frequently and is refusing PT at this time. Medications continue to be adjusted her renal function is improving. consulted on patient today. A: Danette is a 53 year old female admitted with UTI, and altered mental status she lives at the [facility] and has been there for the past year. P: Estephanie will return to the [facility] when medically stable. She will follow up with their plan of care and providers. Estephanie will likely transport via [facility] w/c van. CM will continue to support patient, [id number] and discharge planning needs.
--- NOTE | 2019-04-27 14:50 | PHARADMIT ---
Addendum entered by Dat Ludwig III 04/29/19 14:45: Pharmacy Note Subjective Patient slept overnight, appears to be improving. Toxic encephalopathy has resolved. MDv feels it may have been due to a build up of psych meds in setting of PATIENCE. Objective VS-OK SCr-0.80 Lytes-OK, Clozaril Level- high Assessment Fosfomycin given yesterday for UTI, MD will check in 3 days (UA) Plan Plan is for patient to return to [facility] to a psych hospital if bed becomes available. Addendum entered by Mary Cano 04/28/19 14:48: Pharmacy Note Subjective pt. did not sleep last night per morning report Objective VS okay Assessment -urine culture growing E.coli resistant to levofloxacin -repeat urinalysis ordered -levofloxacin discontinued/one time dose fosofomycin ordered -CM was able to get more of pt's own clozapine. There are 3 different dosage strengths so please pay attention when sending up pt's own meds in the morning and evening Plan watch for clozapine level results (send out) possible transfer to psych facility where inpatient stabilization can be done per progress note Original Note: Admission Pharmacy Clinical Review UTI, ALTERED MENTAL STATUS, ELEVATED LACTATE Code Status Full Code Current Weight Wgt-71.8 kg Renally Cleared and Narrow Therapeutic Index Meds CrCl~545 mL/min Meds-OK QTc Value / Action Taken QTc-530, aware-on TELE BP Control, Fever BP-147/84 Tmax- 36.7C Electrolytes reviewed Na-145 K+3.6 Mag-2.0 DVT Prophylaxis TEDS,SCDs Opiate Usage / Scheduled Bowel Regimen Ordered Yes No Plt/SCr for Heparin / Enoxaparin Plts- 121 SCr-0.90 INR for Warfarin na H/H stable, WBC/Bands H&H- 12.0/36.4 WBC-5.72 Antibiotic appropriateness Levaquin iv Cultures and Sensitivities Blood-nO growth, Urine-Gram(-), MRSA-pending Surgical ABX d/c within 24 hr na DM control / Insulin Dosing BG-106 Aspart, Glargine Heart Failure (Check EF%) (BABATUNDE's, B-Block, Diuretics) NTG, IV to PO Switch No Home Meds Reviewed Yes Home Meds Not Ordered Torsemide, Metformin, Cerovite Comments send up [facility] Clozaril (125MG in AM 250mg in PM) Valproic Acid- 89.4 (50-100)
--- NOTE | 2019-04-27 15:21 | PT.INNT ---
Date of service: 04/27/19 Time of Service: 15:22 PT Notes Visit Reasons: UTI,LACTATE ELEVATED SERUM,ALTERED MENTAL STATUS Patient remains in manic mode, is hypersexual, and is unable to be engaged for PT session. Will hold PT services for a day or until patient becomes more stable and more receptive to functional mobility retraining.
--- NOTE | 2019-04-27 15:28 | NUR.NOTE ---
Nursing Note: Pt having full blow conversation with someone in the corner for the last hour. She states her grandfather is in the room. no one else present in the room except the patient.
[2019-04-27] MEDS: Insulin Aspart 300 UNITS/3 ML PEN SC (16:50)
--- NOTE | 2019-04-27 18:54 | PGE_ITS ---
Date of Service Date of service: 04/27/19 Time of Service: 17:40 Assessment and Plan Assessment and plan (1) UTI (urinary tract infection): Status: Acute Assessment and plan: due to GNR, Present on admission. Urine speciation/sensitivities are pending. Blood cultures are negative. Continue empiric levofloxacin - dosing verified with pharmacy. (2) Toxic metabolic encephalopathy: Status: Resolved Assessment and plan: In setting of UTI, but also question of side eff ects/insufficient clearance of the psychiatric medications in setting of PATIENCE. This appears to have resolved. The patient is now not at all lethargic. (3) Dehydration: Status: Resolved Assessment and plan: D/c IVF. (4) Diastolic dysfunction: Status: Chronic Assessment and plan: IVF d/c'ed. (5) Diabetes mellitus type II, controlled: Status: Acute Assessment and plan: Follow fingerstick blood sugars. Carbohydrate controlled diet. (6) Schizophrenia: Status: Suspected Assessment and plan: The patient has a listed history of bipolar 1 d/o, schizoaffective d/o. There is a clinical suspicion for schizophrenia. Psychiatry consulted. All antipsychotics resumed; attempting to catch up on clozapine. 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 PT on board. No evidence of rib fx, but likely has rib bruising. (8) Electrolyte abnormality: Status: Acute Assessment and plan: Hypokalemia repleted. (9) Dysphagia: Status: Acute Assessment and plan: No aspiration PNA on cxr. Speech therapy consulted. (10) Apneic episode: Status: Acute Assessment and plan: repetitive, chronic and, given patient's weight/BMI, there is a high suspicion for obstructive sleep apnea and central sleep apnea, given her antipsychotic regimen. Would benefit from an outpatient sleep study. (11) Rib pain on right side: Status: Acute Assessment and plan: No rib fx - likely bruising. Continue lidocaine patches, tylenol, and IS. (12) Discharge planning issues: Status: Acute Assessment and plan: full code. Plan is to return to the [facility] once stable. (13) DVT prophylaxis: Status: Acute Assessment and plan: TEDs/SCD's. High risk of falls - abstain from chemical dvt ppx for now Subjective Subjective Interval history since last seen: Ms Shook is quite manic today. Her speech is tangential and it is really hard to get a straight answer out of her. She does express that she is in physical and mental pain, but she does not tell me where her physical pain is. She was seen by Dr Cantor, who recommended that the patient be given some of the clozapine she did not receive last night back to her this morning and that the remainder of her antipsychotics be continued. The patient is calmer now, but remains manic. Exam Narrative Exam Narrative: General: Obese female, sitting up in a chair, having tangential speech/word salad HEENT: EOMI, MMM Heart: RRR, no m/r/g Lungs: CTAB, nonlabored breathing. Abdomen: soft, nontender, nondistended Extremities: no e/c/c BLE's Objective Objective Clinical Data: Abnormal lab results 04/27/19 Range/Units 07:35 RBC 3.77 L (4.00-5.20) m/cumm MCV 96.6 H (80-95) fL Plt Count 121 L (130-400) x1000/uL Absolute Monocytes 0.78 H (0.11-0.7) k/cumm Vital Signs Temperature 36.6 C 04/27/19 15:30 Temperature Source Core 04/27/19 15:30 Pulse 82 04/27/19 15:30 Pulse Rhythm Regular 04/27/19 08:33 Pulse 73 04/25/19 18:20 Respiratory Rate 19 04/27/19 15:30 Respiratory Effort 04/27/19 08:33 Respiratory Depth Normal 04/27/19 08:33 Respiratory Pattern Normal 04/27/19 08:33 Blood Pressure 124/77 04/27/19 15:30 Blood Pressure Mean 90 04/25/19 18:16 Pulse Oximetry 99 04/27/19 15:30 Oxygen Delivery Method Room Air 04/27/19 15:30 Oxygen Flow Rate 0 04/27/19 15:30 Pain Level 0 04/27/19 15:30 Intake & Output 04/26/19 04/27/19 04/27/19 23:59 11:59 23:59 Intake Total 2825 / 4595 240 / 240 Output Total 400 / 750 Balance 2425 / 3845 240 / 240 Weight 71.8 kg Intake: IV 2105 / 3155 Oral 720 / 1440 240 / 240 Output: Urine 400 / 750 Other: Urine Color Dark Margarita Urine Appearance Clear Urine Odor Strong Comment some incontinence and some in commode incontinent of a very large amount of yellow urine Voiding Methods Bedside Commode Laboratory Results WBC 5.72 k/cumm (4.4-10.8) 04/27/19 07:35 RBC 3.77 m/cumm (4.00-5.20) L 04/27/19 07:35 Hgb 12.0 g/dL (12.0-15.5) 04/27/19 07:35 Hct 36.4 % (36.0-46.0) 04/27/19 07:35 MCV 96.6 fL (80-95) H 04/27/19 07:35 MCH 31.8 pg (27.0-33.0) 04/27/19 07:35 MCHC 33.0 g/dL (32.0-36.0) 04/27/19 07:35 RDW 13.5 % (11.7-14.6) 04/27/19 07:35 Plt Count 121 x1000/uL (130-400) L 04/27/19 07:35 MPV 9.5 fL (8.0-11.0) 04/27/19 07:35 Immature Gran % 1.2 % 04/27/19 07:35 Neutrophils % 40.6 04/27/19 07:35 Lymphocytes % 43.9 04/27/19 07:35 Monocytes % 13.6 04/27/19 07:35 Eosinophils % 0.0 04/27/19 07:35 Basophils % 0.7 04/27/19 07:35 Absolute Neutrophils 2.32 k/cumm (1.2-6.7) 04/27/19 07:35 Absolute Lymphocytes 2.51 k/cumm (1.2-3.4) 04/27/19 07:35 Absolute Monocytes 0.78 k/cumm (0.11-0.7) H 04/27/19 07:35 Absolute Eosinophils 0.00 k/cumm (0.0-0.7) 04/27/19 07:35 Absolute Basophils 0.04 k/cumm (0.0-0.2) 04/27/19 07:35 Sodium 145 mmol/L (136-145) 04/27/19 07:35 Potassium 3.6 mmol/L (3.5-5.1) 04/27/19 07:35 Chloride 107 mmol/L (98-107) 04/27/19 07:35 Carbon Dioxide 29.5 mmol/L (21.0-32.0) 04/27/19 07:35 Anion Gap 8.5 mmol/L (3-11) 04/27/19 07:35 BUN 11 mg/dL (7-18) D 04/27/19 07:35 Creatinine 0.90 mg/dL (0.55-1.02) 04/27/19 07:35 Estimated GFR/1.73 m2 >= 60.00 (mL/min/1.73m2) 04/27/19 07:35 Glucose 106 mg/dL (74-106) 04/27/19 07:35 Lactate 2.1 mmol/L (0.6-1.4) H* 04/25/19 16:00 Calcium 8.8 mg/dL (8.5-10.1) 04/27/19 07:35 Magnesium 2.0 mg/dL (1.8-2.4) 04/27/19 07:35 Total Bilirubin 0.5 mg/dL (0.2-1.0) 04/25/19 15:00 AST 38 U/L (15-37) H 04/25/19 15:00 ALT 20 U/L (14-59) 04/25/19 15:00 Alkaline Phosphatase 60 U/L (46-116) 04/25/19 15:00 Ammonia < 10 umol/L (11-32) L 04/25/19 16:00 Troponin I < 0.05 ng/Ml (<0.06) 04/25/19 15:00 Total Protein 7.3 g/dL (6.4-8.2) 04/25/19 15:00 Albumin 2.9 g/dL (3.4-5.0) L 04/25/19 15:00 TSH 0.98 uIU/mL (0.36-3.74) 04/25/19 15:00 Urine Color Yellow (Yellow) 04/25/19 15:45 Urine Clarity Clear (Clear) 04/25/19 15:45 Urine pH 7.0 (5-8) 04/25/19 15:45 Ur Specific [place] 1.015 (1.005-1.025) 04/25/19 15:45 Urine Protein Negative mg/dL (Negative) 04/25/19 15:45 Urine Ketones Negative mg/dL (Negative) 04/25/19 15:45 Urine Blood Negative (Negative) 04/25/19 15:45 Urine Nitrite Negative (Negative) 04/25/19 15:45 Urine Bilirubin Negative (Negative) 04/25/19 15:45 Urine Urobilinogen 0.2 EU/dL (Up TO 0.2) 04/25/19 15:45 Ur Leukocyte Esterase Moderate (Negative) H 04/25/19 15:45 Urine RBC Negative HPF (0-2) 04/25/19 15:45 Urine WBC >50 HPF (0-5) H 04/25/19 15:45 Ur Epithelial Cells Negative HPF (Negative) 04/25/19 15:45 Urine Crystals Negative HPF (Negative) 04/25/19 15:45 Urine Bacteria Moderate HPF (Negative) 04/25/19 15:45 Urine Mucus Negative (Negative) 04/25/19 15:45 Urine Other Few transitional (Negative) 04/25/19 15:45 Ur Culture Indicated? Yes 04/25/19 15:45 Urine Glucose Negative mg/dL (Negative) 04/25/19 15:45 Urine Opiates Screen Negative (Negative) 04/25/19 15:45 Urine Methadone Screen Negative (Negative) 04/25/19 15:45 Ur Barbiturates Screen Negative (Negative) 04/25/19 15:45 Total Valproic Acid 89.4 ug/mL (50-100) 04/26/19 06:36 Ur Tricyclics Screen Negative (Negative) 04/25/19 15:45 Ur Amphetamines Screen Negative (Negative) 04/25/19 15:45 U Benzodiazepines Scrn Negative (Negative) 04/25/19 15:45 Urine Cocaine Screen Negative (Negative) 04/25/19 15:45 Ur THC Screen Negative (Negative) 04/25/19 15:45
[2019-04-27] MEDS: Normal Saline Flush 10 ML SYR IVP (19:09)
[2019-04-27] MEDS: levoFLOXacin 750 MG/150 ML BAG 100 MG IVPB (19:09)
[2019-04-27] MEDS: Albuterol/Ipratropium 3 ML UPD VIAL IH (20:02)
[2019-04-27] MEDS: Divalproex Sodium 500 MG TAB.ER.24H 2500 MG PO (21:23)
[2019-04-27] MEDS: Senna TAB 2 TAB PO (21:24)
[2019-04-27] MEDS: Insulin Glargine 300 UNITS/3 ML PEN 20 UNITS SC (21:24)
[2019-04-28] VITALS (9 sets, daily range): BP systolic 104–121; BP diastolic 61–77; PULSE 70–86; RESP 4–20; TEMP 36.1–36.6; O2SAT 96–99
[2019-04-28] MEDS: Lidocaine Patch Removal 1 EACH TP (00:08)
[2019-04-28] MEDS: Levothyroxine 175 MCG TAB PO (06:08)
[2019-04-28 06:40] LABS: Abs Immature Grans 0.07 k/cumm (0.0-0.09); Absolute Basophil Count 0.05 k/cumm (0.0-0.2); Absolute Lymphocyte Count 3.39 k/cumm (1.2-3.4); Absolute Monocyte Count 0.99 k/cumm (0.11-0.7); Absolute Neutrophil Count 1.96 k/cumm (1.2-6.7); Basophils % 0.8; HCT 36.1 % (36.0-46.0); HGB 11.8 g/dL (12.0-15.5); Immature Grans % 1.1 %; Lymphocytes % 52.5; Mean Corp. HGB Concentration 32.7 g/dL (32.0-36.0); Mean Corpuscular Hemoglobin 31.7 pg (27.0-33.0); Mean Platelet Volume 9.6 fL (8.0-11.0); Monocytes % 15.3; Neutrophils % 30.3; Platelet Count 122 x1000/uL (130-400); RBC 3.72 m/cumm (4.00-5.20); RBC Distribution Width 13.9 % (11.7-14.6); White Blood Cell Count 6.46 k/cumm (4.4-10.8)
[2019-04-28 06:46] LABS: Anion Gap 7.6 mmol/L (3-11); BUN 10 mg/dL (7-18); CO2 29.4 mmol/L (21.0-32.0); CREATININE 0.97 mg/dL (0.55-1.02); Calcium 9.3 mg/dL (8.5-10.1); Chloride 105 mmol/L (98-107); Glucose 82 mg/dL (74-106); Magnesium 2.1 mg/dL (1.8-2.4); Potassium 3.6 mmol/L (3.5-5.1); Sodium 142 mmol/L (136-145)
[2019-04-28 06:58] LABS: Clozapine 1200 ng/mL (>350); Clozapine+Norclozapine Total 1520 ng/mL (>450); Norclozapine 320 ng/mL
--- NOTE | 2019-04-28 09:02 | PDOC.CMPRO ---
- If Service Date Differs Date of service: 04/28/19 Time of Service: 09:02 Care Management Progress Note S/O: Danette is alert she was seen by psychiatry today, and remains acute at this time. CM faxed referral to [facility] and left a voicemail for admission director. UA is being ordered and will be sent today. A: Danette is a 53 year old female admitted with UTI, and altered mental status she lives at the [facility] and has been there for the past year. P: Estephanie will return to the [facility] vs transition to psychiatric facility for stabilization and medication management when medically ready. She will follow up with their plan of care and providers. CM will continue to support patient, family and discharge planning needs.
[2019-04-28] MEDS: Albuterol/Ipratropium 3 ML UPD VIAL IH ×2 (09:11→19:49)
--- NOTE | 2019-04-28 09:18 | PSYCO_ITS ---
Date of service: 04/28/19 Time of Service: 08:50 History of Present Illness Narrative: Events since initial consultation/last note: Overnight events: -pt reportedly did not sleep Medications: all home meds taken Labs last 24 hours: - clozapine level still pending Subjective: Patient unable to participate much in interview. Only gave me the middle finger with a weak, half effortful gesture. I asked if I could touch her arm (to feel for cogwheeling) she did say an emphatic no. When asked if in pain, she did say yes and when ask where she said all over. No other information could be elicited. REVIEW OF SYSTEMS: Constitutional: +pain Musculoskeletal/neuro: Psych: see above MENTAL STATUS EXAM: Constitutional: appears healthy, older than stated age, hospital dress. Agit ated but a bit drowsy. Attitude: non-cooperative Psychomotor: +agitation with movement of hands, right hand repeatedly forming raised middle finger sign Speech: abundant and pressured, quiet volume and monotone. Poor enunciation to mostly unintelligle. Associations: +looseness Thought process: confused Thought content with psychosis, delusions No suicidal or homicidal ideations evident, but unable to answer. Hallucinations evident in that she seems to be responding to internal stimuli both visual and auditory Mood: pt unable to day Affect: dysphoric, no laughing today Attention/Concentration: impaired Judgment/insight: impaired Oriented: able to respond to her name otherwise likely not oriented Language appropriate to age and education Memory poor Other cognitive testing: none Assessment and Plan Assessment and plan (1) Schizoaffective disorder: Status: Acute Assessment and plan: Danette Shook is a 53 year old female with past psychiatric history of schizoaffective disorder bipolar type and past medical history of diabetes mellitus type II, congestive heart failure, COPD, and secondary Parkinson disease who was sent from the [facility] to [facility] on 04/25/2019 with concerns of worsening lethargy/altered mental status and increasing weakness. Work up revealed a UTI, no new intracranial bleed, and a higher than her usual depakote level. Due to concern for altered mental status possibly related to UTI and possibly related to difficulty clearing psychiatric medications, depakote, benztropine, levetiracetam and olanzapine were held. Her clozapine dose was continued as per outpatient regimen, however, on evening of 04/26/2019 a med dispensing error caused her to receive only 1/5 (50mg) of her usual nighttime dose of 250mg after which she did not sleep at all and next morning morning was floridly manic and not showing any signs of lethargy. Her UTI is being treated with levofloxacin. If her blood cultures finalize as negative today she may be medically cleared for discharge, however, psychiatrically she is not ready to return to the [facility]. [facility] may be an option for psychiatric placement, however, if they cannot take her or can't take her soon, given time at [facility] she may stabilize and we can continue to monitor her physical and mental health responses to resumption of home meds, adjustment as necessary. Today she is still manic but less than yesterday and more psychotic, confused and unable to engage. Recommendations: - continue to treat UTI, check telemetry which patient is on to be sure no Qtc prolongation which can occur with combination of clozapine and levofloxacin. - continue all home medications - recheck depakote level on day five if she is still here to be sure blood level is not going higher than her usual. - clozapine/norclozapine level drawn (now pending not likely to be accurate given insufficient dosing last night). - I agree with outpatient sleep study plan, if it can't be assess inpatient, as central or obstructive sleep apnea could be worsening her psychiatric symptoms. Safety: low risk for intentional harm to self or others, however, in her manic and psychotic state she is labile and impulsive with poor judgment and poor self-control thus she may cause unintentional harm to herself (by trying to stand and walk, drink and eat without caution, etc) or harm to staff (throw a punch in her dramatic enactments, for example). I will continue to be involved in her care while she is here at [facility]. Visit Statistics Total Visit Minutes: 25 Visit Time Allocation >50% of face to face visit spent in counseling (Extensive teaching, explanation and instructions. Counseling as appropriate. Review of plans, and discussion concerning medical problems dealt with at this visit. Discussion of benefits/risks of treatment, anticipated course of events, potential medication side effects, options, alternatives, and follow up plans. Questions were solicited and answered, and the patient verbalized understanding.), and/or coordination of care. [facility] Medical History Acute kidney injury (Acute) 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) Bipolar 1 disorder (Acute) Cognitive impairment (Acute) COPD (chronic obstructive pulmonary disease) (Chronic) Diabetes mellitus type II, controlled (Acute) Diabetic neuropathy (Acute) Diastolic dysfunction (Chronic) Falls frequently (Acute) GERD (gastroesophageal reflux disease) (Chronic) Heart murmur (Acute) History of alcohol abuse (Acute) Hyperthyroidism (Chronic) Hypothyroid (Chronic) Left bundle branch block (Acute) AVANI (obstructive sleep apnea) (Chronic) Pancreatitis (Chronic) Schizoaffective disorder (Acute) Secondary Parkinson disease (Acute) Subdural hematoma (Resolved) small right September 2018 2/2 mechanical fall Tobacco dependence (Acute) Surgical History H/O abdominal surgery (Acute) S/P thoracotomy (Acute) Social History Smoking/Tobacco Use Status: Current every day Tobacco Type: cigarettes Smoking packs per day: 0.5 Smoking cigarettes per day: 10.0 Alcohol Intake: former Drug use: Never current occupation: Disabled. Lives at [facility] Do you feel safe at home: Yes Do you feel safe in your relationship?: Yes Results Last Vital Signs Temp 36.6 C 04/28/19 08:15 Pulse 81 04/28/19 08:15 Resp 19 04/28/19 08:15 BP 104/67 04/28/19 08:15 Pulse Ox 97 04/28/19 08:15 Labs Result diagrams: 04/28/19 06:20 04/28/19 06:20 Labs: Laboratory Results - last 24 hr 04/28/19 04/28/19 06:20 06:20 WBC 6.46 RBC 3.72 L Hgb 11.8 L Hct 36.1 MCV 97.0 H MCH 31.7 MCHC 32.7 RDW 13.9 Plt Count 122 L MPV 9.6 Immature Gran % 1.1 Neutrophils % 30.3 Lymphocytes % 52.5 Monocytes % 15.3 Eosinophils % 0.0 Basophils % 0.8 Absolute Neutrophils 1.96 Absolute Lymphocytes 3.39 Absolute Monocytes 0.99 H Absolute Eosinophils 0.00 Absolute Basophils 0.05 Sodium 142 Potassium 3.6 Chloride 105 Carbon Dioxide 29.4 Anion Gap 7.6 BUN 10 Creatinine 0.97 Estimated GFR/1.73 m2 >= 60.00 Glucose 82 Calcium 9.3 Magnesium 2.1
--- NOTE | 2019-04-28 09:23 | W.SPEECHNOTE ---
Date of service: 04/28/19 Time of Service: 09:23 Speech Therapy Visit Note Note: Per nursing/MD, pt not appropriate for swallow evaluation today due to mental status. Will continue to monitor
[2019-04-28] MEDS: Polyethylene Glycol 3350 17 GM PACKET PO (09:34)
[2019-04-28] MEDS: OLANZapine 5 MG TAB 2.5 MG PO ×2 (09:35→19:49)
[2019-04-28] MEDS: levETIRAcetam 500 MG TAB PO ×2 (09:35→19:50)
[2019-04-28] MEDS: Atorvastatin 40 MG TAB PO (09:37)
[2019-04-28] MEDS: Benztropine 1 MG TAB 0.5 MG PO ×2 (09:37→19:50)
[2019-04-28] MEDS: Esomeprazole 20 MG CAPCR PO (09:38)
[2019-04-28] MEDS: Magnesium Oxide 400 MG TAB PO ×3 (09:38→19:50)
[2019-04-28] MEDS: Budesonide/Formoterol 160/4.5 6 GM 60 PUFF INH IH ×2 (10:12→19:47)
[2019-04-28] MEDS: Lidocaine 5% Patch 1 PATCH TP (11:46)
--- NOTE | 2019-04-28 12:15 | W.INDIABCONS ---
Date of service: 04/28/19 Time of Service: 12:15 Diabetes Inpatient Consult DESCRIPTION/ASSESSMENT: Appreicate diabetes consult for Danette Shook who is hospitalized with UTI. She has comorbidity of Schizophrenia. A1c 6.9 down from 8.3 BMI 30 Danette manages diabetes at the [facility] with 20u Lantus and Metformin 1000mg BID. BLood sugars here 102-165 on the 20u Lantus and sensitive insulin correction. She is eating 25-100% of offered carbohydrate controlled meals. INTERVENTION: Danette has reasonable glycemic control at this time. No suggestions for intervention at this time given she does not manage her own diabetes at the [facility]. PLAN: Continue as planned. Will await request for further support as needed. Time Spent in Nutritional Counseling and Treatment: 0 minutes face to face
--- NOTE | 2019-04-28 12:38 | PGE_ITS ---
Date of Service Date of service: 04/28/19 Time of Service: 12:38 Assessment and Plan Assessment and plan (1) UTI (urinary tract infection): Status: Acute Assessment and plan: due to ESBL E. Coli, present on admission. Resistant to levofloxacin, so will d/c it - and, therefore, can d/c tele. Will give 1 dose of fosfamycin. Repeat UA - try to obtain a straight cath - to see if the patient still has findings of a UTI, as colonization is also a possibility, but I cannot definitively say that the patient is asymptomatic as she is manic and not answering my questions, so we should assume she is symptomatic and treat her. (2) Toxic metabolic encephalopathy: Status: Resolved Assessment and plan: In setting of UTI, but also question of side effects/insufficient clearance of the psychiatric medications in setting of PATIENCE. This appears to have resolved. (3) Dehydration: Status: Resolved Assessment and plan: Off IVF. (4) Diastolic dysfunction: Status: Chronic Assessment and plan: IVF d/c'ed. (5) Diabetes mellitus type II, controlled: Status: Acute Assessment and plan: Follow fingerstick blood sugars. Carbohydrate controlled diet. (6) Schizophrenia: Status: Suspected Assessment and plan: The patient has a listed history of bipolar 1 d/o, schizoaffective d/o. There is a clinical suspicion for schizophrenia. Psychiatry consulted. Per psychiatry, will continue antipsychotics at current doses, letting them re- equilibrate in her system. Meanwhile, we are starting to pursue transfer to a facility where inpatient psychiatric stabilization can be done. 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 PT on board. No evidence of rib fx, but likely has rib bruising. (8) Electrolyte abnormality: Status: Resolved Assessment and plan: Hypokalemia resolved. (9) Dysphagia: Status: Acute Assessment and plan: No aspiration PNA on cxr. Speech therapy consulted, but the patient is not likely to participate with it today as she has difficulty following directions due to her marjan. (10) Apneic episode: Status: Acute Assessment and plan: repetitive, chronic and, given patient's weight/BMI, there is a high suspicion for obstructive sleep apnea and central sleep apnea, given her antipsychotic regimen. Would benefit from an outpatient sleep study. (11) Rib pain on right side: Status: Acute Assessment and plan: No rib fx - likely bruising. Continue lidocaine patches, tylenol, and IS. (12) Discharge planning issues: Status: Acute Assessment and plan: full code. Appears now to require inpatient psychiatric hospitalization. Will be medically cleared once receives her dose of fosfamycin. (13) DVT prophylaxis: Status: Acute Assessment and plan: TEDs/SCD's. High risk of falls - abstain from chemical dvt ppx for now Subjective Subjective Interval history since last seen: ESBL E. Coli speciated from urine - the patient has a history of this in her urine in the past, however she is unable to answer whether or not she is currently symptomatic because none of her answers make sense today as she remains manic. Exam Narrative Exam Narrative: General: Obese female, sitting up in a chair, having tangential speech/word salad, with no lucid episodes today; not answering my questions. HEENT: EOMI, MMM Heart: RRR, no m/r/g Lungs: CTAB, nonlabored breathing. Abdomen: soft, nontender, nondistended Extremities: no e/c/c BLE's Objective Objective Clinical Data: Abnormal lab results 04/28/19 Range/Units 06:20 RBC 3.72 L (4.00-5.20) m/cumm Hgb 11.8 L (12.0-15.5) g/dL MCV 97.0 H (80-95) fL Plt Count 122 L (130-400) x1000/uL Absolute Monocytes 0.99 H (0.11-0.7) k/cumm Vital Signs Temperature 36.6 C 04/28/19 11:20 Temperature Source Tympanic 04/28/19 11:20 Pulse 70 04/28/19 11:20 Pulse Rhythm Irregular 04/28/19 12:08 Pulse 73 04/25/19 18:20 Respiratory Rate 19 04/28/19 11:20 Respiratory Effort 04/28/19 12:08 Respiratory Depth Normal 04/28/19 12:08 Respiratory Pattern Normal 04/28/19 12:08 Blood Pressure 112/61 04/28/19 11:20 Blood Pressure Mean 90 04/25/19 18:16 Pulse Oximetry 96 04/28/19 12:06 Oxygen Delivery Method Room Air 04/28/19 12:06 Oxygen Flow Rate 0 04/28/19 12:06 Pain Level 0 04/28/19 12:06 Intake & Output 04/27/19 04/28/19 04/28/19 23:59 11:59 23:59 Intake Total 390 / 390 Balance 390 / 390 Weight 72.6 kg Intake: IV 150 / 150 Oral 240 / 240 Other: Urine Color Yellow Yellow Urine Appearance Clear Clear Urine Odor Normal Voiding Methods Diaper Diaper Incontinent Incontinent Laboratory Results WBC 6.46 k/cumm (4.4-10.8) 04/28/19 06:20 RBC 3.72 m/cumm (4.00-5.20) L 04/28/19 06:20 Hgb 11.8 g/dL (12.0-15.5) L 04/28/19 06:20 Hct 36.1 % (36.0-46.0) 04/28/19 06:20 MCV 97.0 fL (80-95) H 04/28/19 06:20 MCH 31.7 pg (27.0-33.0) 04/28/19 06:20 MCHC 32.7 g/dL (32.0-36.0) 04/28/19 06:20 RDW 13.9 % (11.7-14.6) 04/28/19 06:20 Plt Count 122 x1000/uL (130-400) L 04/28/19 06:20 MPV 9.6 fL (8.0-11.0) 04/28/19 06:20 Immature Gran % 1.1 % 04/28/19 06:20 Neutrophils % 30.3 04/28/19 06:20 Lymphocytes % 52.5 04/28/19 06:20 Monocytes % 15.3 04/28/19 06:20 Eosinophils % 0.0 04/28/19 06:20 Basophils % 0.8 04/28/19 06:20 Absolute Neutrophils 1.96 k/cumm (1.2-6.7) 04/28/19 06:20 Absolute Lymphocytes 3.39 k/cumm (1.2-3.4) 04/28/19 06:20 Absolute Monocytes 0.99 k/cumm (0.11-0.7) H 04/28/19 06:20 Absolute Eosinophils 0.00 k/cumm (0.0-0.7) 04/28/19 06:20 Absolute Basophils 0.05 k/cumm (0.0-0.2) 04/28/19 06:20 Sodium 142 mmol/L (136-145) 04/28/19 06:20 Potassium 3.6 mmol/L (3.5-5.1) 04/28/19 06:20 Chloride 105 mmol/L (98-107) 04/28/19 06:20 Carbon Dioxide 29.4 mmol/L (21.0-32.0) 04/28/19 06:20 Anion Gap 7.6 mmol/L (3-11) 04/28/19 06:20 BUN 10 mg/dL (7-18) 04/28/19 06:20 Creatinine 0.97 mg/dL (0.55-1.02) 04/28/19 06:20 Estimated GFR/1.73 m2 >= 60.00 (mL/min/1.73m2) 04/28/19 06:20 Glucose 82 mg/dL (74-106) 04/28/19 06:20 Lactate 2.1 mmol/L (0.6-1.4) H* 04/25/19 16:00 Calcium 9.3 mg/dL (8.5-10.1) 04/28/19 06:20 Magnesium 2.1 mg/dL (1.8-2.4) 04/28/19 06:20 Total Bilirubin 0.5 mg/dL (0.2-1.0) 04/25/19 15:00 AST 38 U/L (15-37) H 04/25/19 15:00 ALT 20 U/L (14-59) 04/25/19 15:00 Alkaline Phosphatase 60 U/L (46-116) 04/25/19 15:00 Ammonia < 10 umol/L (11-32) L 04/25/19 16:00 Troponin I < 0.05 ng/Ml (<0.06) 04/25/19 15:00 Total Protein 7.3 g/dL (6.4-8.2) 04/25/19 15:00 Albumin 2.9 g/dL (3.4-5.0) L 04/25/19 15:00 TSH 0.98 uIU/mL (0.36-3.74) 04/25/19 15:00 Urine Color Yellow (Yellow) 04/25/19 15:45 Urine Clarity Clear (Clear) 04/25/19 15:45 Urine pH 7.0 (5-8) 04/25/19 15:45 Ur Specific [place] 1.015 (1.005-1.025) 04/25/19 15:45 Urine Protein Negative mg/dL (Negative) 04/25/19 15:45 Urine Ketones Negative mg/dL (Negative) 04/25/19 15:45 Urine Blood Negative (Negative) 04/25/19 15:45 Urine Nitrite Negative (Negative) 04/25/19 15:45 Urine Bilirubin Negative (Negative) 04/25/19 15:45 Urine Urobilinogen 0.2 EU/dL (Up TO 0.2) 04/25/19 15:45 Ur Leukocyte Esterase Moderate (Negative) H 04/25/19 15:45 Urine RBC Negative HPF (0-2) 04/25/19 15:45 Urine WBC >50 HPF (0-5) H 04/25/19 15:45 Ur Epithelial Cells Negative HPF (Negative) 04/25/19 15:45 Urine Crystals Negative HPF (Negative) 04/25/19 15:45 Urine Bacteria Moderate HPF (Negative) 04/25/19 15:45 Urine Mucus Negative (Negative) 04/25/19 15:45 Urine Other Few transitional (Negative) 04/25/19 15:45 Ur Culture Indicated? Yes 04/25/19 15:45 Urine Glucose Negative mg/dL (Negative) 04/25/19 15:45 Urine Opiates Screen Negative (Negative) 04/25/19 15:45 Urine Methadone Screen Negative (Negative) 04/25/19 15:45 Ur Barbiturates Screen Negative (Negative) 04/25/19 15:45 Total Valproic Acid 89.4 ug/mL (50-100) 04/26/19 06:36 Ur Tricyclics Screen Negative (Negative) 04/25/19 15:45 Ur Amphetamines Screen Negative (Negative) 04/25/19 15:45 U Benzodiazepines Scrn Negative (Negative) 04/25/19 15:45 Urine Cocaine Screen Negative (Negative) 04/25/19 15:45 Ur THC Screen Negative (Negative) 04/25/19 15:45
--- NOTE | 2019-04-28 13:18 | NUR.NOTE ---
Incoherent behavior: Extremely disoriented whispering and talking to self, perhaps to others who cannot be seen, unable to ascertain as some words and phrases are clear but inappropriate to context whereas the rest in mostly incomprehensible with loose associations--common phrases of grandpa, grandma, blue eyes, lolipop and sexual comments--no sexual advances made. At times can get eye contact and a smile when speak her name, grasp hand and be in her line of sight, lasts a few seconds to a minute at most. Otherwise unable to engage or orient to situation. Frequent throwing arms around while talking, flaiailing fists at times but semes unintended for harm, and often giving middle finger on right hand. Took all meds with exception of atorvastatin which she spit out x2. Took meds whole with difficulty--attempts to tilt head backwards when she recognizes a pill is in her mouth. Often would pocket pills or hold them on her tongue--frequent directions and reattempts to drink fluids (occasionally sips taken in but often she does not cooperate with out without straw in place. Some meds went down with intended swallows and some while talking non-stop. Poor PO intake for both meals--toast placed in hand and needed direct and frequent encouragement to eat, was fed bites of oatmeal and ice cream with little taken in with each attempt, little sips each time fluid offered with staff assistance. Took magnesium crushed in applesauce but needed several attempts and strong encouragement to take the bites. Nursing Note:
[2019-04-28] MEDS: Fosfomycin Tromethamine 3 GM PACKET PO (14:33)
[2019-04-28 15:13] LABS: Bilirubin Negative (Negative); Blood Negative (Negative); Clarity Clear (Clear); Glucose Negative (Negative); Ketones Negative (Negative); Leukocyte Esterase Small (Negative); Nitrite Negative (Negative); Urobilinogen 0.2 EU/dL (Up TO 0.2)
[2019-04-28 15:35] LABS: Bacteria Many HPF (Negative); C & S Indicated? Yes; Casts Negative LPF (Negative); Crystals Negative HPF (Negative); Epithelial Cells Negative HPF (Negative); Mucus Negative (Negative); WBC >50 HPF (0-5)
[2019-04-28] MEDS: Normal Saline Flush 10 ML SYR IVP (19:49)
[2019-04-28] MEDS: Divalproex Sodium 500 MG TAB.ER.24H 2500 MG PO (21:39)
[2019-04-28] MEDS: Senna TAB 2 TAB PO (21:39)
[2019-04-28] MEDS: Insulin Glargine 300 UNITS/3 ML PEN 20 UNITS SC (22:30)
[2019-04-29] VITALS (8 sets, daily range): BP systolic 113–145; BP diastolic 69–84; PULSE 67–79; RESP 8–28; TEMP 36.4–37.2; O2SAT 96–99
[2019-04-29] MEDS: Levothyroxine 175 MCG TAB PO (06:36)
[2019-04-29 06:37] LABS: Abs Immature Grans 0.02 k/cumm (0.0-0.09); Absolute Basophil Count 0.03 k/cumm (0.0-0.2); Absolute Lymphocyte Count 2.88 k/cumm (1.2-3.4); Absolute Monocyte Count 0.67 k/cumm (0.11-0.7); Absolute Neutrophil Count 1.86 k/cumm (1.2-6.7); Basophils % 0.5; HCT 32.8 % (36.0-46.0); HGB 10.5 g/dL (12.0-15.5); Immature Grans % 0.4 %; Lymphocytes % 52.7; Mean Corpuscular Hemoglobin 31.4 pg (27.0-33.0); Mean Corpuscular Volume 98.2 fL (80-95); Mean Platelet Volume 9.5 fL (8.0-11.0); Monocytes % 12.3; Neutrophils % 34.1; Platelet Count 119 x1000/uL (130-400); RBC 3.34 m/cumm (4.00-5.20); White Blood Cell Count 5.46 k/cumm (4.4-10.8)
[2019-04-29 06:43] LABS: Anion Gap 6.2 mmol/L (3-11); BUN 9 mg/dL (7-18); CO2 30.8 mmol/L (21.0-32.0); Calcium 8.4 mg/dL (8.5-10.1); Chloride 108 mmol/L (98-107); Glucose 75 mg/dL (74-106); Potassium 3.7 mmol/L (3.5-5.1); Sodium 145 mmol/L (136-145)
[2019-04-29] MEDS: Albuterol/Ipratropium 3 ML UPD VIAL IH ×2 (08:14→20:13)
[2019-04-29] MEDS: Polyethylene Glycol 3350 17 GM PACKET PO (09:22)
[2019-04-29] MEDS: Normal Saline Flush 10 ML SYR IVP ×2 (09:22→20:13)
[2019-04-29] MEDS: Magnesium Oxide 400 MG TAB PO ×4 (09:22→20:04)
[2019-04-29] MEDS: levETIRAcetam 500 MG TAB PO ×2 (09:23→20:05)
[2019-04-29] MEDS: Esomeprazole 20 MG CAPCR PO (09:23)
[2019-04-29] MEDS: OLANZapine 5 MG TAB 2.5 MG PO ×2 (09:29→20:04)
[2019-04-29] MEDS: Benztropine 1 MG TAB 0.5 MG PO ×2 (09:30→20:03)
[2019-04-29] MEDS: Budesonide/Formoterol 160/4.5 6 GM 60 PUFF INH IH ×2 (10:10→20:20)
--- NOTE | 2019-04-29 10:11 | CMPROGNOTE_ITS ---
- If Service Date Differs Date of service: 04/29/19 Time of Service: 10:11 Care Management Progress Note S/O: Estephaine was sitting up in bed when CM met with her. She recognized CM from previous encounters and was pleasant and appropriate. PT discharged Estephanie from service today due to periods of manic-like behavior and inability/unwillingness to engage in therapy. A: Danette is a 53 year old female admitted with UTI, and altered mental status. She lives at the [facility] and has been there for the past year. P: Estephanie will return to the [facility] vs transition to psychiatric facility for stabilization and medication management when medically ready. She will follow up with their plan of care and providers. CM will continue to support patient, family and discharge planning needs.
[2019-04-29] MEDS: Insulin Aspart 300 UNITS/3 ML PEN SC (11:57)
[2019-04-29] MEDS: Lidocaine Patch Removal 1 EACH TP (11:58)
--- NOTE | 2019-04-29 12:56 | PT.INDS ---
Date of service: 04/29/19 Time of Service: 12:57 PT Notes Visit Reasons: UTI,LACTATE ELEVATED SERUM,ALTERED MENTAL STATUS Physical Therapy Inpatient Discharge Summary Date: 04/28/2019 Referring Doctor: Sabra Olivares MD PT Orders: PT CONSULT: Limited ability Precautions: Fall. Standard. Activity as tolerated. Patient Profile/Admitting Diagnosis: Patient is a 53-year-old female who presented to the ED on 04/25/2019 with chief presentation of altered mental status 4 days prior to ED admission, fatigue, garbled speech and lethargy. Patient was diagnosed with urinary tract infection with suspected toxic metabolic encephalopathy, suspected schizophrenia, dehydration, diastolic dysfunction, type 2 diabetes mellitus, frequent falls with rib fracture from most recent fall, electrolyte abnormalities, secondary Parkinsonism, and dysphasia. Referral to physical therapy services was made to address impairments in strength, balance, and mobility level in anticipation of discharge back to SNF when medically cleared to do so. PMHX: Medical History Acute kidney injury (Acute) 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) Bipolar 1 disorder (Acute) Cognitive impairment (Acute) COPD (chronic obstructive pulmonary disease) (Chronic) Diabetes mellitus type II, controlled (Acute) Diabetic neuropathy (Acute) Falls frequently (Acute) GERD (gastroesophageal reflux disease) (Chronic) Heart murmur (Acute) History of alcohol abuse (Acute) Hyperthyroidism (Chronic) Hypothyroid (Chronic) Left bundle branch block (Acute) AVANI (obstructive sleep apnea) (Chronic) Pancreatitis (Chronic) Schizoaffective disorder (Acute) Secondary Parkinson disease (Acute) Subdural hematoma (Resolved) small right September 2018 2/2 mechanical fall Tobacco dependence (Acute) Surgical History H/O abdominal surgery (Acute) S/P thoracotomy (Acute) Social History/Home Situation: Patient is a resident of the [facility] and uses a 4 wheeled walker for all ambulation activity. Equipment Owned/DME: [employer] Subjective: NT Objective: General Observation: NT Mental Status: NT Pain: NT ROM: As of day of initial evaluation Right Upper Extremity: Shoulder Flexion WFL. Shoulder abduction WFL. Elbow flexion WFL. Wrist flexion WFL. Opening and closing of hand WFL. Left Upper Extremity: Shoulder Flexion WFL. Shoulder abduction WFL. Elbow flexion WFL. Wrist flexion WFL. Opening and closing of hand WFL. Right Lower Extremity: Hip flexion WFL. Hip abduction WFL. Knee flexion WFL. Ankle dorsiflexion WFL. Ankle plantarflexion WFL. Left Lower Extremity: Hip flexion WFL. Hip abduction WFL. Knee flexion WFL. Ankle dorsiflexion WFL. Ankle plantarflexion WFL. Strength: As of day of initial evaluation Right Upper Extremity: Shoulder flexors 4/5. Shoulder abductors 4/5. Elbow flexors 4/5. Elbow extensors 4/5. Brush Machine Setter strong. Left Upper Extremity: Shoulder flexors 4/5. Shoulder abductors 4/5. Elbow flexors 4/5. Elbow extensors 4/5. Brush Machine Setter strong. Right Lower Extremity: Hip flexors 3+/5. Hip abductors 3+/5. Knee flexors 3+/5. Knee extensors 3+/5. Ankle dorsiflexors 3+/5. Ankle plantarflexors 3+/5. Left Lower Extremity: Hip flexors 3+/5. Hip abductors 3+/5. Knee flexors 3+/5. Knee extensors 3+/5. Ankle dorsiflexors 3+/5. Ankle plantarflexors 3+/5. Sensation: Intact as to pain and pressure on bilateral lower extremities. Bed Mobility/Transfers: Sit to stand unable to test Stand to sit unable to test Bed to chair unable to test Chair to bed unable to test Gait:Unable to test Balance: Static Sitting: Unable to test Dynamic Sitting: Unable to test Static Standing: Unable to test Dynamic Standing:Unable to test Assessment: Patient is discontinued from skilled PT services as of today due to a succession of manic episodes, hypersexual behavior, emotional lability, and dysphoric behaviors that have prevented patient engagement since yesterday. Patient presents with functional mobility decline and increased risk for falls with impairment level findings and functional deficits listed below. Patient is a 53-year-old female who presented to the ED on 04/25/2019 with chief presentation of altered mental status 4 days prior to ED admission, fatigue, garbled speech and lethargy. Patient was diagnosed with urinary tract infection with suspected toxic metabolic encephalopathy, suspected schizophrenia, dehydration, diastolic dysfunction, type 2 diabetes mellitus, frequent falls with rib fracture from most recent fall, electrolyte abnormalities, secondary Parkinsonism, and dysphasia. Referral to physical therapy services was made to address impairments in strength, balance, and mobility level in anticipation of discharge back to SNF when medically cleared to do so. Patient continues to present with clinical signs and symptoms consistent with current/admitting diagnoses that have resulted to mobility limitations, gait instability, generalized weakness, and impairment of motor control as demonstrated by the following impairment level findings: 1. Decreased strength to B LE major muscle groups 2. Impaired standing balance 3. Impaired activity tolerance Impairments continue to contribute to the following functional limitations: 1. Increased dependence with transfers 2. Inability to safely ambulate without assistive device and physical assistance 3. Increase completion time for mobility ADL performance 4. Increased fall risk 5. Inability to negotiate steps alone safely Goals: Goals X1 week 1. Supine-Sit independent NOT MET 2. Sit-Supine independent NOT MET 3. Sit-Stand independent NOT MET 4. Stand-Sit independent NOT MET 5. Bed-Chair independent NOT MET 6. Chair-Bed independent NOT MET 7. Independent gait on level surface with use of least restrictive device for at least 300 feet without report of pain nor dyspnea NOT MET 8. Good static and dynamic standing balance/tolerance NOT MET DISCHARGE RECOMMENDATIONS: Patient will continue with psychiatric stabilization intervention while on admission with plan to return to intermediate facility for continued skilled physical therapy services in order to progress mobility level, strength, and balance in preparation for a safe discharge to home. TREATMENT CODE/TIME: NC. Thank you very much for this referral. Lorena Piedra PT, DPT, CLT [facility] [place], [place]
[2019-04-29] MEDS: Acetaminophen 325 MG TAB 650 MG PO (13:52)
--- NOTE | 2019-04-29 13:58 | W.NUTRFU ---
Date of service: 04/29/19 Time of Service: 13:59 Nutritional Follow up NOTE: Decline in PO intake noted in last 3 days. PO intake <25% of meals. Nursing reports that today she was able to eat >50% of lunch and poor intake linked to her manic state last couple of days. No significant change in weight noted. Does not appear to be at nutritional risk at this time. Will continue to monitor po intake, labs, weight and adjust meals as needed for optimal intake. Time Spent in Nutritional Counseling and Treatment: 5 min spent face to face
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
[2019-04-29] MEDS: Divalproex Sodium 500 MG TAB.ER.24H 2500 MG PO (21:55)
[2019-04-29] MEDS: Senna TAB 2 TAB PO (21:56)
[2019-04-29] MEDS: Insulin Glargine 300 UNITS/3 ML PEN 10 UNITS SC (21:59)
[2019-04-30] MEDS: Lidocaine 5% Patch 1 PATCH TP (00:07)
[2019-04-30] MEDS: Levothyroxine 175 MCG TAB PO (06:45)
[2019-04-30 07:30] VITALS: BP 132/85; PULSE 69; RESP 20; TEMP 36.5; O2SAT 95
[2019-04-30] MEDS: Polyethylene Glycol 3350 17 GM PACKET PO (08:38)
[2019-04-30] MEDS: Normal Saline Flush 10 ML SYR IVP ×2 (08:38→20:32)
[2019-04-30] MEDS: Esomeprazole 20 MG CAPCR PO (08:38)
[2019-04-30] MEDS: Magnesium Oxide 400 MG TAB PO ×4 (08:39→20:32)
[2019-04-30] MEDS: Benztropine 1 MG TAB 0.5 MG PO ×2 (08:39→20:31)
[2019-04-30] MEDS: Atorvastatin 40 MG TAB PO (08:39)
[2019-04-30] MEDS: OLANZapine 5 MG TAB 2.5 MG PO ×2 (08:39→20:32)
[2019-04-30] MEDS: levETIRAcetam 500 MG TAB PO ×2 (08:39→20:31)
[2019-04-30 10:02] VITALS: PULSE 71; RESP 30; RESP 5; O2SAT 95
[2019-04-30] MEDS: Albuterol/Ipratropium 3 ML UPD VIAL IH ×2 (10:02→20:30)
[2019-04-30] MEDS: Budesonide/Formoterol 160/4.5 6 GM 60 PUFF INH IH ×2 (10:04→20:31)
[2019-04-30 11:32] VITALS: BP 134/83; PULSE 68; RESP 30; TEMP 36.8; O2SAT 95
[2019-04-30] MEDS: Lidocaine Patch Removal 1 EACH TP (11:52)
--- NOTE | 2019-04-30 11:55 | PGE_ITS ---
Date of Service Date of service: 04/30/19 Time of Service: 11:55 Assessment and Plan Assessment and plan (1) UTI (urinary tract infection): Start date: 04/30/19 Start time: 12:09 Status: Acute Assessment and plan: Recheck u/a tomorrow (2) Toxic metabolic encephalopathy: Start date: 04/30/19 Start time: 12:09 Status: Resolved Assessment and plan: Resolved at baseline mental status per [facility]. (3) Dehydration: Start date: 04/30/19 Start time: 12:10 Status: Resolved Assessment and plan: Off IVF. Cr remains stable. (4) Diabetes mellitus type II, controlled: Start date: 04/30/19 Status: Acute Assessment and plan: Decrease long acting insulin. Carbohydrate controlled diet. Continue to monitor Fingersticks. (5) Schizophrenia: Start date: 04/30/19 Start time: 12:13 Status: Suspected Assessment and plan: The patient has a listed history of bipolar 1 d/o, schizoaffective d/o. There is a clinical suspicion for schizophrenia. Baseline per facility. [facility] is willing to accept patient back as she receives psychiatric treatment at facility, yelling out is normal for her. Per [facility] at [facility] very sensitive to medication adjustments. 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 PT on board. No evidence of rib fx, but likely has rib bruising. (7) Dysphagia: Start date: 04/30/19 Start time: 12:16 Status: Acute Assessment and plan: Mental status appears to be at baseline per facility. (8) Rib pain on right side: Start date: 04/30/19 Start time: 12:16 Status: Acute Assessment and plan: No rib fx - likely bruising. Continue lidocaine patches, tylenol, and IS. (9) Discharge planning issues: Start date: 04/30/19 Start time: 12:17 Status: Acute Assessment and plan: full code. [facility] is willing to accept patient on Thursday if medically cleared. Medically cleared. (10) DVT prophylaxis: Status: Acute Assessment and plan: TEDs/SCD's. High risk of falls - abstain from chemical dvt ppx for now Subjective Subjective Patient reports: other Interval history since last seen: Yells out at times. 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 Patient is at baseline mentation per facility and yelling out during day is part of patient normal mentation. The [facility] will accept back on Thursday. Does not appear in any distress at this time. Exam Narrative Exam Narrative: General: Obese female, A&Ox1, laying comfortably in bed, sleeping, wakes easily, NAD HEENT: EOMI, MMM Heart: RRR, no m/r/g Lungs: CTAB Abdomen: soft, nontender Extremities: no edema Objective Objective Clinical Data: Vital Signs Temperature 36.8 C 04/30/19 11:32 Temperature Source Tympanic 04/30/19 11:32 Pulse 68 04/30/19 11:32 Pulse Rhythm Regular 04/30/19 08:45 Pulse 73 04/25/19 18:20 Respiratory Rate 30 H 04/30/19 11:32 Respiratory Effort Non-Labored 04/30/19 08:45 Respiratory Depth Normal 04/30/19 08:45 Respiratory Pattern Normal 04/30/19 08:45 Blood Pressure 134/83 04/30/19 11:32 Blood Pressure Mean 90 04/25/19 18:16 Pulse Oximetry 95 04/30/19 11:32 Oxygen Delivery Method Room Air 04/30/19 11:32 Oxygen Flow Rate 0 04/30/19 11:32 Pain Level 0 04/30/19 07:30 Comment 04/30/19 11:32 Intake & Output 04/29/19 04/29/19 04/30/19 11:59 23:59 11:59 Intake Total 350 / 1070 720 / 1070 310 / 310 Balance 350 / 1070 720 / 1070 310 / 310 Weight 73.7 kg Intake: IV 150 / 150 10 / 10 Oral 200 / 920 720 / 920 300 / 300 Other: Urine Color Yellow Yellow Urine Appearance Clear Clear Urine Odor Normal Comment Soaked diaper Soaked diaper Voiding Methods Diaper Diaper Incontinent Incontinent Laboratory Results WBC 5.46 k/cumm (4.4-10.8) 04/29/19 06:15 RBC 3.34 m/cumm (4.00-5.20) L 04/29/19 06:15 Hgb 10.5 g/dL (12.0-15.5) L 04/29/19 06:15 Hct 32.8 % (36.0-46.0) L 04/29/19 06:15 MCV 98.2 fL (80-95) H 04/29/19 06:15 MCH 31.4 pg (27.0-33.0) 04/29/19 06:15 MCHC 32.0 g/dL (32.0-36.0) 04/29/19 06:15 RDW 14.0 % (11.7-14.6) 04/29/19 06:15 Plt Count 119 x1000/uL (130-400) L 04/29/19 06:15 MPV 9.5 fL (8.0-11.0) 04/29/19 06:15 Immature Gran % 0.4 % 04/29/19 06:15 Neutrophils % 34.1 04/29/19 06:15 Lymphocytes % 52.7 04/29/19 06:15 Monocytes % 12.3 04/29/19 06:15 Eosinophils % 0.0 04/29/19 06:15 Basophils % 0.5 04/29/19 06:15 Absolute Neutrophils 1.86 k/cumm (1.2-6.7) 04/29/19 06:15 Absolute Lymphocytes 2.88 k/cumm (1.2-3.4) 04/29/19 06:15 Absolute Monocytes 0.67 k/cumm (0.11-0.7) 04/29/19 06:15 Absolute Eosinophils 0.00 k/cumm (0.0-0.7) 04/29/19 06:15 Absolute Basophils 0.03 k/cumm (0.0-0.2) 04/29/19 06:15 Sodium 145 mmol/L (136-145) 04/29/19 06:15 Potassium 3.7 mmol/L (3.5-5.1) 04/29/19 06:15 Chloride 108 mmol/L (98-107) H 04/29/19 06:15 Carbon Dioxide 30.8 mmol/L (21.0-32.0) 04/29/19 06:15 Anion Gap 6.2 mmol/L (3-11) 04/29/19 06:15 BUN 9 mg/dL (7-18) 04/29/19 06:15 Creatinine 0.80 mg/dL (0.55-1.02) 04/29/19 06:15 Estimated GFR/1.73 m2 >= 60.00 (mL/min/1.73m2) 04/29/19 06:15 Glucose 75 mg/dL (74-106) 04/29/19 06:15 Lactate 2.1 mmol/L (0.6-1.4) H* 04/25/19 16:00 Calcium 8.4 mg/dL (8.5-10.1) L 04/29/19 06:15 Magnesium 2.0 mg/dL (1.8-2.4) 04/29/19 06:15 Total Bilirubin 0.5 mg/dL (0.2-1.0) 04/25/19 15:00 AST 38 U/L (15-37) H 04/25/19 15:00 ALT 20 U/L (14-59) 04/25/19 15:00 Alkaline Phosphatase 60 U/L (46-116) 04/25/19 15:00 Ammonia < 10 umol/L (11-32) L 04/25/19 16:00 Troponin I < 0.05 ng/Ml (<0.06) 04/25/19 15:00 Total Protein 7.3 g/dL (6.4-8.2) 04/25/19 15:00 Albumin 2.9 g/dL (3.4-5.0) L 04/25/19 15:00 TSH 0.98 uIU/mL (0.36-3.74) 04/25/19 15:00 Urine Color Yellow (Yellow) 04/28/19 14:34 Urine Clarity Clear (Clear) 04/28/19 14:34 Urine pH 8.0 (5-8) 04/28/19 14:34 Ur Specific [place] 1.020 (1.005-1.025) 04/28/19 14:34 Urine Protein 30 mg/dL (Negative) H 04/28/19 14:34 Urine Ketones Negative mg/dL (Negative) 04/28/19 14:34 Urine Blood Negative (Negative) 04/28/19 14:34 Urine Nitrite Negative (Negative) 04/28/19 14:34 Urine Bilirubin Negative (Negative) 04/28/19 14:34 Urine Urobilinogen 0.2 EU/dL (Up TO 0.2) 04/28/19 14:34 Ur Leukocyte Esterase Small (Negative) H 04/28/19 14:34 Urine RBC 3-5 HPF (0-2) H 04/28/19 14:34 Urine WBC >50 HPF (0-5) H 04/28/19 14:34 Ur Epithelial Cells Negative HPF (Negative) 04/28/19 14:34 Urine Crystals Negative HPF (Negative) 04/28/19 14:34 Urine Bacteria Many HPF (Negative) 04/28/19 14:34 Urine Casts Negative LPF (Negative) 04/28/19 14:34 Urine Mucus Negative (Negative) 04/28/19 14:34 Urine Other Few transitional (Negative) 04/25/19 15:45 Ur Culture Indicated? Yes 04/28/19 14:34 Urine Glucose Negative mg/dL (Negative) 04/28/19 14:34 Urine Opiates Screen Negative (Negative) 04/25/19 15:45 Urine Methadone Screen Negative (Negative) 04/25/19 15:45 Ur Barbiturates Screen Negative (Negative) 04/25/19 15:45 Total Valproic Acid 89.4 ug/mL (50-100) 04/26/19 06:36 Ur Tricyclics Screen Negative (Negative) 04/25/19 15:45 Clozapine 1200 ng/mL (>350) 04/26/19 06:36 Clozapine &Norclozapine 1520 ng/mL (>450) 04/26/19 06:36 Norclozapine 320 ng/mL 04/26/19 06:36 Ur Amphetamines Screen Negative (Negative) 04/25/19 15:45 U Benzodiazepines Scrn Negative (Negative) 04/25/19 15:45 Urine Cocaine Screen Negative (Negative) 04/25/19 15:45 Ur THC Screen Negative (Negative) 04/25/19 15:45
[2019-04-30 15:20] VITALS: BP 124/82; PULSE 71; RESP 21; TEMP 36.8; O2SAT 95
[2019-04-30] MEDS: Acetaminophen 325 MG TAB 650 MG PO (17:57)
--- NOTE | 2019-04-30 18:06 | CMPROGNOTE_ITS ---
- If Service Date Differs Date of service: 04/30/19 Time of Service: 18:06 Care Management Progress Note S/O: Estephanie was sitting up in bed when CM met with her. She was pleasant and smiled during the encounter. Estephanie was offered materials to color with and accepted with pleasure. CM contacted staff at [facility] to obtain more information about Estephanie's baseline behavior. According to the nurse, Estephanie almost always becomes agitated in the afternoon, frequently calling out. At times she seems to be talking to Satan and at other times she just calls out loudly about random things. Sometimes her outburst are sexual in nature. The nurse also shared that Estephanie sees a psychiatrist from [facility]. Today Estephanie was calm and slept on and off for much of the day. A: Danette is a 53 year old female admitted with UTI, and altered mental status. She lives at the [facility] and has been there for the past year. P: Estephanie will likely return to the [facility] when medically ready. She will follow up with their plan of care and providers. CM will continue to support patient, family and discharge planning needs.
[2019-04-30] MEDS: Divalproex Sodium 500 MG TAB.ER.24H 2500 MG PO (20:33)
[2019-04-30] MEDS: Senna TAB 2 TAB PO (20:35)
[2019-04-30] MEDS: Insulin Glargine 300 UNITS/3 ML PEN 10 UNITS SC (22:50)
[2019-04-30 23:26] VITALS: BP 134/75; PULSE 70; RESP 20; TEMP 36.2; O2SAT 96
[2019-05-01] VITALS (7 sets, daily range): BP systolic 132–140; BP diastolic 67–84; PULSE 72–82; RESP 1–24; TEMP 36.2–36.8; O2SAT 96–98
[2019-05-01] MEDS: Lidocaine 5% Patch 1 PATCH TP ×2 (00:03→23:08)
[2019-05-01] MEDS: Levothyroxine 175 MCG TAB PO (06:23)
[2019-05-01 06:59] LABS: HCT 32.9 % (36.0-46.0); HGB 10.6 g/dL (12.0-15.5); Mean Corp. HGB Concentration 32.2 g/dL (32.0-36.0); Mean Corpuscular Hemoglobin 31.5 pg (27.0-33.0); Mean Corpuscular Volume 97.9 fL (80-95); Mean Platelet Volume 9.9 fL (8.0-11.0); Platelet Count 115 x1000/uL (130-400); RBC 3.36 m/cumm (4.00-5.20); RBC Distribution Width 13.8 % (11.7-14.6); White Blood Cell Count 6.54 k/cumm (4.4-10.8)
[2019-05-01 07:11] LABS: Anion Gap 5.6 mmol/L (3-11); BUN 14 mg/dL (7-18); CO2 29.4 mmol/L (21.0-32.0); CREATININE 0.81 mg/dL (0.55-1.02); Calcium 8.4 mg/dL (8.5-10.1); Chloride 106 mmol/L (98-107); Glucose 134 mg/dL (74-106); Potassium 4.4 mmol/L (3.5-5.1); Sodium 141 mmol/L (136-145)
[2019-05-01 07:30] LABS: Bilirubin Negative (Negative); Blood Negative (Negative); Clarity Clear (Clear); Glucose Negative (Negative); Ketones Negative (Negative); Leukocyte Esterase Negative (Negative); Nitrite Negative (Negative); Urobilinogen 0.2 EU/dL (Up TO 0.2)
[2019-05-01] MEDS: Magnesium Oxide 400 MG TAB PO ×4 (09:06→19:46)
[2019-05-01] MEDS: Atorvastatin 40 MG TAB PO (09:06)
[2019-05-01] MEDS: levETIRAcetam 500 MG TAB PO ×2 (09:06→19:47)
[2019-05-01] MEDS: Esomeprazole 20 MG CAPCR PO (09:07)
[2019-05-01] MEDS: Polyethylene Glycol 3350 17 GM PACKET PO (09:07)
[2019-05-01] MEDS: Benztropine 1 MG TAB 0.5 MG PO ×2 (09:07→19:46)
[2019-05-01] MEDS: OLANZapine 5 MG TAB 2.5 MG PO ×2 (09:08→19:45)
[2019-05-01] MEDS: Normal Saline Flush 10 ML SYR IVP ×2 (09:09→19:47)
[2019-05-01] MEDS: Budesonide/Formoterol 160/4.5 6 GM 60 PUFF INH IH ×2 (10:17→19:47)
[2019-05-01] MEDS: Albuterol/Ipratropium 3 ML UPD VIAL IH ×2 (10:17→19:48)
[2019-05-01] MEDS: Insulin Aspart 300 UNITS/3 ML PEN SC (12:03)
--- NOTE | 2019-05-01 13:01 | PGE_ITS ---
Date of Service Date of service: 05/01/19 Time of Service: 13:01 Assessment and Plan Assessment and plan (1) UTI (urinary tract infection): Start date: 05/01/19 Start time: 13:02 Status: Acute Assessment and plan: U/A negative (2) Toxic metabolic encephalopathy: Start date: 05/01/19 Start time: 13:02 Status: Resolved Assessment and plan: Resolved at baseline mental status per [facility]. (3) Dehydration: Start date: 05/01/19 Start time: 13:02 Status: Resolved Assessment and plan: Off IVF. Cr remains stable. (4) Diabetes mellitus type II, controlled: Start date: 05/01/19 Start time: 13:02 Status: Acute Assessment and plan: Decrease long acting insulin. Carbohydrate controlled diet. Continue to monitor Fingersticks. (5) Schizophrenia: Start date: 05/01/19 Start time: 13:02 Status: Suspected Assessment and plan: The patient has a listed history of bipolar 1 d/o, schizoaffective d/o. There is a clinical suspicion for schizophrenia. Baseline per facility. [facility] is willing to accept patient back as she receives psychiatric treatment at facility, yelling out is normal for her. Per TELECOMMUNICATIONS TECHNICIAN at [facility] very sensitive to medication adjustments. 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 PT on board. No evidence of rib fx, but likely has rib bruising. (7) Dysphagia: Start date: 05/01/19 Start time: 13:02 Status: Acute Assessment and plan: Mental status appears to be at baseline per facility. No need for speech therapy at this time. (8) Rib pain on right side: Start date: 05/01/19 Start time: 13:03 Status: Acute Assessment and plan: Resolved. (9) Discharge planning issues: Start date: 05/01/19 Start time: 13:03 Status: Acute Assessment and plan: full code. Return to [facility] tomorrow. (10) DVT prophylaxis: Start date: 05/01/19 Start time: 13:04 Status: Acute Assessment and plan: TEDs/SCD's. High risk of falls - abstain from chemical dvt ppx for now Subjective Subjective Patient reports: no new complaints Exam Narrative Exam Narrative: General: Obese female, A&Ox1, laying comfortably in bed, sleeping, wakes easily, NAD HEENT: EOMI, MMM Heart: RRR, no m/r/g Lungs: CTAB Abdomen: soft, nontender Extremities: no edema Objective Objective Clinical Data: Abnormal lab results 05/01/19 05/01/19 Range/Units 06:40 06:40 RBC 3.36 L (4.00-5.20) m/cumm Hgb 10.6 L (12.0-15.5) g/dL Hct 32.9 L (36.0-46.0) % MCV 97.9 H (80-95) fL Plt Count 115 L (130-400) x1000/uL Glucose 134 H (74-106) mg/dL Calcium 8.4 L (8.5-10.1) mg/dL Vital Signs Temperature 36.6 C 05/01/19 12:09 Temperature Source Tympanic 05/01/19 12:09 Pulse 72 05/01/19 12:09 Pulse Rhythm Regular 05/01/19 01:10 Pulse 73 04/25/19 18:20 Respiratory Rate 22 05/01/19 12:09 Respiratory Effort Non-Labored 05/01/19 01:10 Respiratory Depth Normal 05/01/19 01:10 Respiratory Pattern Normal 05/01/19 01:10 Blood Pressure 138/81 05/01/19 12:09 Blood Pressure Mean 90 04/25/19 18:16 Pulse Oximetry 98 05/01/19 12:09 Oxygen Delivery Method Room Air 05/01/19 12:09 Oxygen Flow Rate 0 05/01/19 12:09 Pain Level 0 05/01/19 12:09 Comment 04/30/19 11:32 Intake & Output 04/30/19 05/01/19 05/01/19 23:59 11:59 23:59 Intake Total 250 / 560 950 / 1200 250 / 1200 Balance 250 / 560 950 / 1200 250 / 1200 Weight 73 kg 72.7 kg Intake: IV Oral 240 / 540 950 / 1200 250 / 1200 Other: Urine Color Yellow Yellow Urine Appearance Clear Clear Urine Odor Normal Voiding Methods Diaper Incontinent Incontinent Laboratory Results WBC 6.54 k/cumm (4.4-10.8) 05/01/19 06:40 RBC 3.36 m/cumm (4.00-5.20) L 05/01/19 06:40 Hgb 10.6 g/dL (12.0-15.5) L 05/01/19 06:40 Hct 32.9 % (36.0-46.0) L 05/01/19 06:40 MCV 97.9 fL (80-95) H 05/01/19 06:40 MCH 31.5 pg (27.0-33.0) 05/01/19 06:40 MCHC 32.2 g/dL (32.0-36.0) 05/01/19 06:40 RDW 13.8 % (11.7-14.6) 05/01/19 06:40 Plt Count 115 x1000/uL (130-400) L 05/01/19 06:40 MPV 9.9 fL (8.0-11.0) 05/01/19 06:40 Immature Gran % 0.4 % 04/29/19 06:15 Neutrophils % 34.1 04/29/19 06:15 Lymphocytes % 52.7 04/29/19 06:15 Monocytes % 12.3 04/29/19 06:15 Eosinophils % 0.0 04/29/19 06:15 Basophils % 0.5 04/29/19 06:15 Absolute Neutrophils 1.86 k/cumm (1.2-6.7) 04/29/19 06:15 Absolute Lymphocytes 2.88 k/cumm (1.2-3.4) 04/29/19 06:15 Absolute Monocytes 0.67 k/cumm (0.11-0.7) 04/29/19 06:15 Absolute Eosinophils 0.00 k/cumm (0.0-0.7) 04/29/19 06:15 Absolute Basophils 0.03 k/cumm (0.0-0.2) 04/29/19 06:15 Sodium 141 mmol/L (136-145) 05/01/19 06:40 Potassium 4.4 mmol/L (3.5-5.1) 05/01/19 06:40 Chloride 106 mmol/L (98-107) 05/01/19 06:40 Carbon Dioxide 29.4 mmol/L (21.0-32.0) 05/01/19 06:40 Anion Gap 5.6 mmol/L (3-11) 05/01/19 06:40 BUN 14 mg/dL (7-18) 05/01/19 06:40 Creatinine 0.81 mg/dL (0.55-1.02) 05/01/19 06:40 Estimated GFR/1.73 m2 >= 60.00 (mL/min/1.73m2) 05/01/19 06:40 Glucose 134 mg/dL (74-106) H 05/01/19 06:40 Lactate 2.1 mmol/L (0.6-1.4) H* 04/25/19 16:00 Calcium 8.4 mg/dL (8.5-10.1) L 05/01/19 06:40 Magnesium 2.0 mg/dL (1.8-2.4) 04/29/19 06:15 Total Bilirubin 0.5 mg/dL (0.2-1.0) 04/25/19 15:00 AST 38 U/L (15-37) H 04/25/19 15:00 ALT 20 U/L (14-59) 04/25/19 15:00 Alkaline Phosphatase 60 U/L (46-116) 04/25/19 15:00 Ammonia < 10 umol/L (11-32) L 04/25/19 16:00 Troponin I < 0.05 ng/Ml (<0.06) 04/25/19 15:00 Total Protein 7.3 g/dL (6.4-8.2) 04/25/19 15:00 Albumin 2.9 g/dL (3.4-5.0) L 04/25/19 15:00 TSH 0.98 uIU/mL (0.36-3.74) 04/25/19 15:00 Urine Color Yellow (Yellow) 05/01/19 06:15 Urine Clarity Clear (Clear) 05/01/19 06:15 Urine pH 7.0 (5-8) 05/01/19 06:15 Ur Specific Ramsey 1.020 (1.005-1.025) 05/01/19 06:15 Urine Protein Negative mg/dL (Negative) 05/01/19 06:15 Urine Ketones Negative mg/dL (Negative) 05/01/19 06:15 Urine Blood Negative (Negative) 05/01/19 06:15 Urine Nitrite Negative (Negative) 05/01/19 06:15 Urine Bilirubin Negative (Negative) 05/01/19 06:15 Urine Urobilinogen 0.2 EU/dL (Up TO 0.2) 05/01/19 06:15 Ur Leukocyte Esterase Negative (Negative) 05/01/19 06:15 Urine RBC 3-5 HPF (0-2) H 04/28/19 14:34 Urine WBC >50 HPF (0-5) H 04/28/19 14:34 Ur Epithelial Cells Negative HPF (Negative) 04/28/19 14:34 Urine Crystals Negative HPF (Negative) 04/28/19 14:34 Urine Bacteria Many HPF (Negative) 04/28/19 14:34 Urine Casts Negative LPF (Negative) 04/28/19 14:34 Urine Mucus Negative (Negative) 04/28/19 14:34 Urine Other Few transitional (Negative) 04/25/19 15:45 Ur Culture Indicated? Yes 04/28/19 14:34 Urine Glucose Negative mg/dL (Negative) 05/01/19 06:15 Urine Opiates Screen Negative (Negative) 04/25/19 15:45 Urine Methadone Screen Negative (Negative) 04/25/19 15:45 Ur Barbiturates Screen Negative (Negative) 04/25/19 15:45 Total Valproic Acid 89.4 ug/mL (50-100) 04/26/19 06:36 Ur Tricyclics Screen Negative (Negative) 04/25/19 15:45 Clozapine 1200 ng/mL (>350) 04/26/19 06:36 Clozapine &Norclozapine 1520 ng/mL (>450) 04/26/19 06:36 Norclozapine 320 ng/mL 04/26/19 06:36 Ur Amphetamines Screen Negative (Negative) 04/25/19 15:45 U Benzodiazepines Scrn Negative (Negative) 04/25/19 15:45 Urine Cocaine Screen Negative (Negative) 04/25/19 15:45 Ur THC Screen Negative (Negative) 04/25/19 15:45
[2019-05-01] MEDS: Acetaminophen 325 MG TAB 650 MG PO (13:29)
[2019-05-01] MEDS: Lidocaine Patch Removal 1 EACH TP (13:32)
--- NOTE | 2019-05-01 16:46 | CMPROGNOTE_ITS ---
- If Service Date Differs Date of service: 05/01/19 Time of Service: 16:46 Care Management Progress Note S/O: Estephanie was sitting up in a chair when CM came to visit. She was dozing a bit but seemed happy to engage with CM. Music was playing in the room and Estephanie stated that she enjoyed the music and asked for the volume to be increased. Estephanie stated that she feels . When asked what she meant she said her body feels numb. She then went on to ask for a shower and pain medicine. CM relayed the requests to nursing. Estephanie is unable to stand to participate in a shower but there is a shower stretcher available. CM noted that Estephanie had been coloring the pictures left for her and she indicated that she enjoyed coloring. A: Danette is a 53 year old female admitted with UTI, and altered mental status. She lives at the [facility] and has been there for the past year. P: Estephanie will likely return to the [facility] when medically ready. She will follow up with their plan of care and providers. CM will continue to support patient, family and discharge planning needs.
[2019-05-01] MEDS: Divalproex Sodium 500 MG TAB.ER.24H 2500 MG PO (21:26)
[2019-05-01] MEDS: Insulin Glargine 300 UNITS/3 ML PEN 10 UNITS SC (21:26)
[2019-05-01] MEDS: Senna TAB 2 TAB PO (21:26)
[2019-05-02 06:00] VITALS: BP 128/74; PULSE 82; RESP 18; TEMP 36.6; O2SAT 96
[2019-05-02] MEDS: Levothyroxine 175 MCG TAB PO (06:33)
[2019-05-02 08:10] VITALS: PULSE 73; RESP 24; RESP 8; O2SAT 97; O2SAT 98
[2019-05-02] MEDS: Albuterol/Ipratropium 3 ML UPD VIAL IH (08:10)
[2019-05-02 08:20] VITALS: BP 118/68; PULSE 74; RESP 19; TEMP 35.9; O2SAT 100
[2019-05-02 08:21] VITALS: PULSE 73; RESP 24; RESP 8; O2SAT 99
[2019-05-02] MEDS: Normal Saline Flush 10 ML SYR IVP (09:05)
[2019-05-02 10:00] VITALS: O2SAT 96
[2019-05-02] MEDS: Budesonide/Formoterol 160/4.5 6 GM 60 PUFF INH IH (10:23)
--- NOTE | 2019-05-02 10:38 | DSE_ITS ---
Date of service: 05/02/19 Time of Service: 10:39 DS: Diagnosis Discharge Diagnosis (1) UTI (urinary tract infection): Start date: 05/02/19 Start time: 10:39 Status: Resolved Asessment and Plan: Resolved, one dose fosfomycin given. (2) Toxic metabolic encephalopathy: Start date: 05/02/19 Start time: 10:39 Status: Resolved Asessment and Plan: It appears to be more baseline psych mentation for patient. Patient will be returning to [facility] (3) Dehydration: Start date: 05/02/19 Start time: 10:40 Status: Resolved Asessment and Plan: REsolved. Given IVF (4) Diabetes mellitus type II, controlled: Start date: 05/02/19 Start time: 10:41 Status: Acute Asessment and Plan: Continue home regimen (5) Schizophrenia: Start date: 05/02/19 Start time: 10:41 Status: Suspected Asessment and Plan: Will continue to follow with outpatient psychiatry and the [facility] (6) Falls frequently: Start date: 05/02/19 Start time: 10:41 Status: Resolved (7) Dysphagia: Start date: 05/02/19 Start time: 10:41 Status: Resolved (8) Rib pain on right side: Start date: 05/02/19 Start time: 10:41 Status: Acute Asessment and Plan: From pain. Continue tylenol, and incentive spirometer. (9) Discharge planning issues: Status: Acute (10) DVT prophylaxis: Status: Acute Discharge Plan Disposition Patient Disposition: LEV[facility] III [facility] Condition: Stable Discharge Details Chief Complaint: AMS/LOC Clinical Impression: UTI (urinary tract infection), High serum lactate Reason For Visit: UTI,LACTATE ELEVATED SERUM,ALTERED MENTAL STATUS Admit Date/Time: 04/25/19 17:45 Admit Provider: Dirk Davies Attending Provider: Dirk Davies Primary Care Provider: Mikayla Torres ED Provider: Mitzy Garrett Hospital Course Hospital Course: 53. yo female with many psychiatric issues admitted to m/s from [facility] after being admitted for AMS with lethargy. She was also found to have a UTI. She was given fosfomyacin po x 1 dose with resolution of UTI. Per [facility] mentation is baseline. Somelence waxes and wanes. Usually in the morning she is tired and sitting up in the afternoon. She does have outbursts. [facility] verified that this is patients baseline mentation. She has not had any fevers, white count. She is being discharged back to the [facility] today. She will continue her current regimen and follow up with her psychiatrist. Home Meds and New Rx's Prescriptions: New benztropine 1 mg Tablet 0.5 mg PO BID Qty: 10 RF: 0 Continued divalproex 500 mg tablet,delayed release (DR/EC) 2,500 mg PO .QHS RF: 0 clozapine 100 mg Tablet 125 mg PO DAILY RF: 0 metformin 1,000 mg Tablet 1,000 mg PO BID RF: 0 Nicotrol 10 mg Cartridge 1 inh INHALATION 4-6XD PRNRF: 0 ergocalciferol (vitamin D2) [Vitamin D2] 1,250 mcg (50,000 unit) Capsule 50,000 unit PO DIRECTED RF: 0 CertaVite Senior-Antioxidant 0.4-300-250 mg-mcg-mcg Tablet 1 tab PO DAILY RF: 0 atorvastatin 40 mg Tablet 40 mg PO DAILY RF: 0 acetaminophen 325 mg Tablet 650 mg PO Q4H PRN PRNRF: 0 torsemide 20 mg Tablet 60 mg PO DAILY RF: 0 levetiracetam 500 mg Tablet 500 mg PO BID RF: 0 magnesium oxide 400 mg (241.3 mg magnesium) Tablet 400 mg PO QID RF: 0 docusate sodium [Colace] 100 mg Capsule 100 mg PO BID PRNRF: 0 benztropine [Cogentin] 2 mg/2 mL Solution 0.5 mg IM BID RF: 0 clozapine 50 mg Tablet 250 mg PO .QHS RF: 0 budesonide-formoterol [Symbicort] 160-4.5 mcg/actuation Hfa Aerosol Inhaler 2 puff INHALATION BID RF: 0 ferrous gluconate 324 mg (37.5 mg iron) Tablet 324 mg PO BID RF: 0 Combivent Respimat 20-100 mcg/actuation Mist 1 puff INHALATION QID RF: 0 levothyroxine 175 mcg Tablet 175 mcg PO DAILY RF: 0 esomeprazole magnesium [Nexium] 20 mg Capsule,Delayed Release(Dr/Ec) 20 mg PO DAILY RF: 0 polyethylene glycol 3350 17 gram/dose Powder 17 g PO DAILY RF: 0 senna 8.6 mg Capsule 17.2 mg PO .QHS RF: 0 budesonide-formoterol [Symbicort] 160-4.5 mcg/actuation Hfa Aerosol Inhaler 2 puff INHALATION BID RF: 0 olanzapine 5 mg Tablet 2.5 mg PO BID RF: 0 Lantus Solostar U-100 Insulin 100 unit/mL (3 mL) Insulin Pen 20 unit SUBCUT HS RF: 0 nitroglycerin 0.4 mg Tablet, Sublingual 1 mg sublingual PRN PRNRF: 0 No Action ipratropium-albuterol 0.5 mg-3 mg(2.5 mg base)/3 mL Solution For Nebulization 3 ml INHALATION BID RF: 0 Discharge Instructions Instructions: Urinary Tract Infection in Women (GEN), Altered Mental Status (GEN) Additional Instructions: Follow up with psychiatry as scheduled. Activity:: Activity as Tolerated Equipment/Supplies:: No Equipment Needed Diet:: Carb Counting Discharge Orders Discharge Orders: Discharge Order (Routine); Ordered 05/02/19 Ordered By: Tierney Campbell DS: Summary Status at Discharge Functional status at discharge: independent ambulation Overall status at discharge: patient is back to baseline Mental Status: other Speech and Movement: other Mood: other Affect: labile affect and anxious affect Exam Narrative Exam Narrative: General: Obese female, A&Ox1, laying comfortably in bed, sleeping, wakes easily, NAD HEENT: EOMI, MMM Heart: RRR, no m/r/g Lungs: CTAB Abdomen: soft, nontender Extremities: no edema Psych Mental Status: other Speech and Movement: other Mood: other Affect: labile affect and anxious affect DS: Data Vitals/I&O Vitals and I&O: Vital Signs Temperature 35.9 C L 05/02/19 08:20 Temperature Source Tympanic 05/02/19 08:20 Pulse 73 05/02/19 08:21 Pulse Rhythm Regular 05/02/19 00:05 Pulse 73 04/25/19 18:20 Respiratory Rate 24 05/02/19 08:21 Respiratory Effort Non-Labored 05/02/19 00:05 Respiratory Depth Normal 05/02/19 00:05 Respiratory Pattern Normal 05/02/19 00:05 Blood Pressure 118/68 05/02/19 08:20 Blood Pressure Mean 90 04/25/19 18:16 Pulse Oximetry 99 05/02/19 08:21 Oxygen Delivery Method Room Air 05/02/19 08:20 Oxygen Flow Rate 0 05/02/19 08:20 Pain Level 0 05/02/19 08:20 Comment 04/30/19 11:32 Intake & Output 05/01/19 05/01/19 05/02/19 11:59 23:59 11:59 Intake Total 950 / 1440 490 / 1440 460 / 460 Output Total 825 / 825 Balance 950 / 615 -335 / 615 460 / 460 Weight 72.7 kg 72.9 kg Intake: IV Oral 950 / 1440 490 / 1440 450 / 450 Output: Urine 825 / 825 Other: Urine Color Yellow Yellow Urine Appearance Clear Clear Clear Urine Odor Normal Normal Comment incontinent Incontinent large amount of urine Voiding Methods Incontinent Bedside Commode Diaper Incontinent Data Completed and Pending Completed studies during hospitalization [Text1]: Exam(s) a CT:CT head wo EXAM: CT HEAD WO CLINICAL HISTORY: AMS TECHNIQUE: The exam was performed without contrast. COMPARISON: No exams were available for comparison FINDINGS: There is prominence of the ventricles and sulci consistent with cerebral atrophy. There are areas of decreased attenuation in the white matter consistent with small vessel ischemic disease. No acute territorial infarct, intracranial hemorrhage or midline shift or mass effect is identified. The ventricles are intact. The basilar cisterns are patent. The calvarium is intact there is near complete opacification of the left maxillary sinus. The remaining visualized paranasal sinuses are clear. IMPRESSION: 1. No acute intracranial process. 2. Opacification of the left maxillary sinus with high density material. This may represent inspissated secretions or atypical infection. COMPARISON: No relevant prior studies available. FINDINGS: Brain: There is mild diffuse heterogeneity of the white matter attenuation, consistent with chronic white matter ischemic changes. Mild cerebral atrophy No acute intracranial hemorrhage. Pneumo cephaly in the interhemispheric fissure Ventricles: Normal. No ventriculomegaly. Bones/joints: Unremarkable. No acute fracture. Sinuses: Opacities in the left maxillary sinus may represent sinusitis. Mastoid air cells: Visualized mastoid air cells are well aerated. Soft tissues: Unremarkable. IMPRESSION: 1. Opacities in the left maxillary sinus may represent sinusitis. 2. No acute intracranial hemorrhage. Exam(s) PROCEDURE INFORMATION: Exam: XR Chest, 2 Views Exam date and time: 04/25/2019 4:08 PM Age: 53 years old Clinical indication: Other: Lethargic TECHNIQUE: Imaging protocol: XR of the chest Views: 2 views. COMPARISON: CR XR PORTABLE CHEST AP 03/04/2019 2:57 PM FINDINGS: Lungs: Unremarkable. No consolidation. Pleural space: Unremarkable. No pleural effusion. No pneumothorax. Heart/Mediastinum: Stable cardiac silhouette Bones/joints: Stable. Stable sclerotic density in the left humeral head IMPRESSION: No acute process Exam(s) a RAD:XR ribs RT w PA & lat chest EXAM: XR RIBS RT W PA LAT CHEST CLINICAL HISTORY: suspected aspiration pneumonia. TECHNIQUE: 2D digital imaging was performed. COMPARISON: XR CHEST 2V PA LATERAL from 04/25/2019 FINDINGS: LUNGS: Clear. No pleural abnormality seen. HEART: Normal. MEDIASTINUM: Normal. OTHER FINDINGS:Normal. BONE:Normal. IMPRESSION: No acute pulmonary findings. [facility] Medical History Acute kidney injury (Acute) 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) Bipolar 1 disorder (Acute) Cognitive impairment (Acute) COPD (chronic obstructive pulmonary disease) (Chronic) Diabetes mellitus type II, controlled (Acute) Diabetic neuropathy (Acute) Diastolic dysfunction (Chronic) Falls frequently (Resolved) GERD (gastroesophageal reflux disease) (Chronic) Heart murmur (Acute) History of alcohol abuse (Acute) Hyperthyroidism (Chronic) Hypothyroid (Chronic) Left bundle branch block (Acute) AVANI (obstructive sleep apnea) (Chronic) Pancreatitis (Chronic) Schizoaffective disorder (Acute) Secondary Parkinson disease (Acute) Subdural hematoma (Resolved) small right September 2018 2/2 mechanical fall Tobacco dependence (Acute) Surgical History H/O abdominal surgery (Acute) S/P thoracotomy (Acute) Social History Smoking/Tobacco Use Status: Current every day Tobacco Type: cigarettes Smoking packs per day: 0.5 Smoking cigarettes per day: 10.0 Alcohol Intake: former Drug use: Never current occupation: Disabled. Lives at [facility] Do you feel safe at home: Yes Do you feel safe in your relationship?: Yes
[2019-05-02 10:53] VITALS: BP 128/85; PULSE 72; RESP 19; TEMP 36.5; O2SAT 96
[2019-05-02] MEDS: Benztropine 1 MG TAB 0.5 MG PO (11:19)
[2019-05-02] MEDS: OLANZapine 5 MG TAB 2.5 MG PO (11:20)
[2019-05-02] MEDS: levETIRAcetam 500 MG TAB PO (11:20)
[2019-05-02] MEDS: Atorvastatin 40 MG TAB PO (11:20)
[2019-05-02] MEDS: Polyethylene Glycol 3350 17 GM PACKET PO (11:20)
[2019-05-02] MEDS: Esomeprazole 20 MG CAPCR PO (11:20)
[2019-05-02] MEDS: Magnesium Oxide 400 MG TAB PO (11:21)
[2019-05-02] MEDS: Insulin Aspart 300 UNITS/3 ML PEN SC (12:36)
[2019-05-02] MEDS: Lidocaine Patch Removal 1 EACH TP (12:37)
[2019-05-02] MEDS: Docusate Sodium 100 MG CAP PO (13:30)
--- NOTE | 2019-05-02 16:45 | CMDISCH_ITS ---
- If Service Date Differs Date of service: 05/02/19 Time of Service: 16:45 LACE Index Scoring Tool - Questions: Length of Stay (in days): 7 - 13 Acuity (Admit via E.D.?): Yes Comorbidities: Diabetes w/o Complication, Chronic Pulmonary Disease E.D. Visits: 4 - Answers: Total Score: 15 Risk of Readmission: High Risk Care Management Discharge Reason for Hospitalization: UTI Discharge Plan: Estephanie will be discharged back to [facility] where she lives. She will follow up with her provider there and her psychiatrist in the community. She will transport via ambulance with [facility], arranged by SHIKHA. Patient/Family Education Needs: Discharge plan, follow up plan and limitations.
== END 2019-05-02 13:34 | disposition designated cancer center or children's hospital (05) | DRG 689 ==
LOC: ER 17:55 → MS 19:09
PROVIDERS: Internal Medicine; Nurse Practitioner Family; Physician Assistant; Admitting Provider Family Medicine; Emergency Provider Physician Assistant; PCP Family Medicine; Visit Provider Internal Medicine
DX: N39.0 Urinary tract infection, site not specified (principal); G92 Toxic encephalopathy; Z16.12 Extended spectrum beta lactamase (ESBL) resistance; F30.9 Manic episode, unspecified; E87.6 Hypokalemia; B96.20 Unspecified Escherichia coli [E. coli] as the cause of diseases classified elsewhere; E11.42 Type 2 diabetes mellitus with diabetic polyneuropathy; F25.0 Schizoaffective disorder, bipolar type; Z91.81 History of falling; R13.10 Dysphagia, unspecified; R07.81 Pleurodynia; I51.89 Other ill-defined heart diseases; E83.42 Hypomagnesemia; G47.33 Obstructive sleep apnea (adult) (pediatric); K21.9 Gastro-esophageal reflux disease without esophagitis; Z71.3 Dietary counseling and surveillance; Z79.4 Long term (current) use of insulin; F17.210 Nicotine dependence, cigarettes, uncomplicated
CPT/HCPCS: 36415; 80048; 80053; 80307; 85027; 87040; 87077; 87081; 93005; 94640; 96361; 96365; 97162; 99223; 99232; 99233; 99239; 99254; 99255; 99285; 70450; 71046; 71100; 80159; 80164; 81003; 81015; 82140; 83605; 83735; 84443; 84484; 85025; 87086; 87186; 93010; 99281; J1956; J3475; J3480; J3490; J7620

== ENCOUNTER 2019-05-13 21:00 | Emergency (ER) | payer MEDICARE, MEDICAID, SELFPAY ==
[2019-05-13 21:04] VITALS: BP 106/59; PULSE 82; RESP 22; TEMP 36.1; O2SAT 97
--- NOTE | 2019-05-13 21:09 | ED.GENADUL_ITS ---
Discharge Plan Disposition Patient Disposition: HOME Condition: Stable Discharge Details Chief Complaint: GenMedical Clinical Impression: Schizoaffective disorder, Dehydration Primary Care Provider: Mikayla Torres ED Provider: Dirk Baker [place] Meds and New Rx's Prescriptions: Continued divalproex 500 mg tablet,delayed release (DR/EC) 2,500 mg PO .QHS RF: 0 clozapine 100 mg Tablet 125 mg PO DAILY RF: 0 metformin 1,000 mg Tablet 1,000 mg PO BID RF: 0 Nicotrol 10 mg Cartridge 1 inh INHALATION 4-6XD PRNRF: 0 ergocalciferol (vitamin D2) [Vitamin D2] 1,250 mcg (50,000 unit) Capsule 50,000 unit PO DIRECTED RF: 0 CertaVite Senior-Antioxidant 0.4-300-250 mg-mcg-mcg Tablet 1 tab PO DAILY RF: 0 atorvastatin 40 mg Tablet 40 mg PO DAILY RF: 0 acetaminophen 325 mg Tablet 650 mg PO Q4H PRN PRNRF: 0 ipratropium-albuterol 0.5 mg-3 mg(2.5 mg base)/3 mL Solution For Nebulization 3 ml INHALATION BID RF: 0 torsemide 20 mg Tablet 60 mg PO DAILY RF: 0 levetiracetam 500 mg Tablet 500 mg PO BID RF: 0 magnesium oxide 400 mg (241.3 mg magnesium) Tablet 400 mg PO QID RF: 0 docusate sodium [Colace] 100 mg Capsule 100 mg PO BID PRNRF: 0 clozapine 50 mg Tablet 250 mg PO .QHS RF: 0 budesonide-formoterol [Symbicort] 160-4.5 mcg/actuation Hfa Aerosol Inhaler 2 puff INHALATION BID RF: 0 ferrous gluconate 324 mg (37.5 mg iron) Tablet 324 mg PO BID RF: 0 Combivent Respimat 20-100 mcg/actuation Mist 1 puff INHALATION QID RF: 0 levothyroxine 175 mcg Tablet 175 mcg PO DAILY RF: 0 esomeprazole magnesium [Nexium] 20 mg Capsule,Delayed Release(Dr/Ec) 20 mg PO DAILY RF: 0 polyethylene glycol 3350 17 gram/dose Powder 17 g PO DAILY RF: 0 senna 8.6 mg Capsule 17.2 mg PO .QHS RF: 0 benztropine 1 mg Tablet 0.5 mg PO BID Qty: 10 RF: 0 budesonide-formoterol [Symbicort] 160-4.5 mcg/actuation Hfa Aerosol Inhaler 2 puff INHALATION BID RF: 0 olanzapine 5 mg Tablet 2.5 mg PO BID RF: 0 nitroglycerin 0.4 mg Tablet, Sublingual 1 mg sublingual PRN PRNRF: 0 Discharge Instructions Instructions: Dehydration (ED) Medical Decision Making 53 yo female with hx of schizophrenia, dysphagia, copd, t2dm, who comes in from the [facility] after being d/c'd from inpatient here for uti and lethargy and dehydration for possible dehydration and lethargy. She apparently hasn't been drinking much and staff felt she was dehydrated and more tired than normal and was sent here. She did apparently become more energized when she was told she'd be coming here. She currently has no complaints. She denies fevers, chest pain, shortness of breath. Has no foca motor or sensation deficits. Has no abdominal tenderness. Will evaluate for anemia, electrolyte abnotmalities and monitor. Denies any uti symptoms as well. Will give gentle IV hydration pt has remained stable here, lab work shows no significant abnormalities. Spoke with provider at the [facility] who ask IV stay in place and accepts back at the [facility] Differential Diagnosis Differential Diagnosis: psychosomatic lethargy, anemia, adrienne, dehydration Medical Records Medical records reviewed: Yes I reviewed the patient's medical records. Lab Data Lab results reviewed: Yes I reviewed the patient's lab results. HPI General Mode of arrival: ambulatory . Date/Time Provider Initiated Documentation: 05/13/19 21:08 . Limitations to Documentation: no limitations . Information obtained by: patient . History of Present Illness 53 year old F presents to the emergency department with the chief complaint of lethargy, described as moderate, and it has been constant. No relieving factors improve symptom(s), No exacerbating factors reported . Patient did receive the following treatments prior to arrival, none Related Data Home Medications Medication Instructions Recorded Confirmed clozapine 125 mg PO DAILY 10/07/18 05/13/19 metformin 1,000 mg PO BID 10/07/18 05/13/19 budesonide-formoterol [Symbicort] 2 puff INHALATION BID 02/06/19 05/13/19 nitroglycerin 1 mg SUBLINGUAL PRN PRN 02/06/19 05/13/19 olanzapine 2.5 mg PO BID 02/06/19 05/13/19 divalproex 500 mg tablet,delayed 2,500 mg PO .QHS tab 02/22/19 05/13/19 release CertaVite Senior-Antioxidant 1 tab PO DAILY 03/04/19 05/13/19 Combivent Respimat 1 puff INHALATION QID 03/04/19 05/13/19 Nicotrol 1 inh INHALATION 4-6XD PRN 03/04/19 05/13/19 acetaminophen 650 mg PO Q4H PRN PRN 03/04/19 05/13/19 atorvastatin 40 mg PO DAILY 03/04/19 05/13/19 budesonide-formoterol [Symbicort] 2 puff INHALATION BID 03/04/19 05/13/19 clozapine 250 mg PO .QHS 03/04/19 05/13/19 docusate sodium [Colace] 100 mg PO BID PRN 03/04/19 05/13/19 ergocalciferol (vitamin D2) 50,000 unit PO DIRECTED 03/04/19 05/13/19 [Vitamin D2] esomeprazole magnesium [Nexium] 20 mg PO DAILY 03/04/19 05/13/19 ferrous gluconate 324 mg PO BID 03/04/19 05/13/19 ipratropium-albuterol 3 ml INHALATION BID 03/04/19 05/13/19 levetiracetam 500 mg PO BID 03/04/19 05/13/19 levothyroxine 175 mcg PO DAILY 03/04/19 05/13/19 magnesium oxide 400 mg PO QID 03/04/19 05/13/19 torsemide 60 mg PO DAILY 03/04/19 05/13/19 polyethylene glycol 3350 17 g PO DAILY 04/25/19 05/13/19 senna 17.2 mg PO .QHS 04/25/19 05/13/19 benztropine 0.5 mg PO BID #10 tab 05/02/19 05/13/19 Previous Rx's Medication Instructions Recorded benztropine 0.5 mg PO BID #10 tab 05/02/19 Allergies Allergy/AdvReac Type Severity Reaction Status Date / Time prednisone Allergy Unknown Unverified 05/13/19 21:30 lithium Allergy Unverified 05/13/19 21:30 oxycodone [From OxyContin] Allergy Unverified 05/13/19 21:30 Penicillins Allergy Unverified 05/13/19 21:30 pioglitazone Allergy Unverified 05/13/19 21:30 Sulfa (Sulfonamide Allergy Unverified 05/13/19 21:30 Antibiotics) tramadol Allergy Unverified 05/13/19 21:30 General Stated Complaint: GenMedical DIONE: 3 Review of Systems All systems reviewed & are unremarkable except as noted in HPI and below Constitutional Constitutional: Denies chills and Denies fever(s) Cardiovascular Cardiovascular: Denies chest pain and Denies dyspnea Respiratory Respiratory: Denies cough and Denies dyspnea Gastrointestinal Gastrointestinal: Denies abdominal pain, Denies nausea and Denies vomiting Psychiatric Psychiatric: Denies depression [facility] Social History Smoking/Tobacco Use Status: Current every day Tobacco Type: cigarettes Smoking packs per day: 0.5 Smoking cigarettes per day: 10.0 Alcohol Intake: former Drug use: Never current occupation: Disabled. Lives at [facility] Do you feel safe at home: Yes Do you feel safe in your relationship?: Yes Exam Const General: no acute distress Orientation: alert HENMT Head: normal to inspection Ears: external ears normal General nose exam: external nose normal Mouth: moist mucous membranes Eyes General: appearance normal, both eyes and all related structures Neck Neck: normal visual inspection Resp Effort & Inspection: normal respiratory effort and able to speak in complete sentences Cardio Rate: regular rate Skin General skin exam: no rashes or lesions noted Neuro General: alert Extrem General: normal to inspection Psych Mental Status: mental status grossly normal Course Vital Signs Vital signs: Vital Signs Temperature 36.1 C L 05/13/19 21:04 Pulse 82 05/13/19 21:04 Respiratory Rate 22 05/13/19 21:04 Blood Pressure 106/59 L 05/13/19 21:04 Pulse Oximetry 97 05/13/19 21:04 Temperature 36.1 C L 05/13/19 21:04 Temperature Source Temporal Artery Scan 05/13/19 21:04 Pulse 82 05/13/19 21:04 Respiratory Rate 22 05/13/19 21:04 Blood Pressure 106/59 L 05/13/19 21:04 Pulse Oximetry 97 05/13/19 21:04 Oxygen Delivery Method Room Air 05/13/19 21:04 Oxygen Flow Rate 0 05/13/19 21:04
[2019-05-13 21:20] LABS: Abs Immature Grans 0.02 k/cumm (0.0-0.09); Absolute Basophil Count 0.03 k/cumm (0.0-0.2); Absolute Lymphocyte Count 3.26 k/cumm (1.2-3.4); Absolute Monocyte Count 0.68 k/cumm (0.11-0.7); Absolute Neutrophil Count 2.49 k/cumm (1.2-6.7); Basophils % 0.5; HCT 35.6 % (36.0-46.0); HGB 11.6 g/dL (12.0-15.5); Immature Grans % 0.3 %; Lymphocytes % 50.3; Mean Corp. HGB Concentration 32.6 g/dL (32.0-36.0); Mean Corpuscular Hemoglobin 32.4 pg (27.0-33.0); Mean Corpuscular Volume 99.4 fL (80-95); Mean Platelet Volume 9.2 fL (8.0-11.0); Monocytes % 10.5; Neutrophils % 38.4; Platelet Count 186 x1000/uL (130-400); RBC 3.58 m/cumm (4.00-5.20); White Blood Cell Count 6.48 k/cumm (4.4-10.8)
[2019-05-13] MEDS: Normal Saline 250 ML 500 ML IV (21:21)
[2019-05-13 21:34] LABS: ALT 14 U/L (14-59); AST 30 U/L (15-37); Albumin 2.5 g/dL (3.4-5.0); Alkaline Phosphatase 74 U/L (46-116); Anion Gap 9.7 mmol/L (3-11); BUN 17 mg/dL (7-18); Bilirubin, Total 0.3 mg/dL (0.2-1.0); CO2 31.3 mmol/L (21.0-32.0); Calcium 8.4 mg/dL (8.5-10.1); Chloride 104 mmol/L (98-107); Estimated GFR 46.99 (mL/min/1.73m2); Glucose 130 mg/dL (74-106); Lipase 96 U/L (73-393); Magnesium 2.1 mg/dL (1.8-2.4); Potassium 3.3 mmol/L (3.5-5.1); Sodium 145 mmol/L (136-145); Total Protein 6.5 g/dL (6.4-8.2)
[2019-05-13 21:45] VITALS: BP 103/62; PULSE 73; RESP 18; O2SAT 97
--- NOTE | 2019-05-13 21:53 | NUR.NOTE ---
Nursing Note: Nursing report given to Darshana RN #20 IV RAC maintained as per physician order and RN aware
== END 2019-05-13 22:15 | disposition home or self-care (01) ==
PROVIDERS: Emergency Provider Emergency Medicine; PCP Family Medicine
DX: E86.0 Dehydration (principal); F25.9 Schizoaffective disorder, unspecified; R53.83 Other fatigue; J44.9 Chronic obstructive pulmonary disease, unspecified; F17.210 Nicotine dependence, cigarettes, uncomplicated; E11.9 Type 2 diabetes mellitus without complications
CPT/HCPCS: 36415; 80053; 83690; 99284; 83735; 85025

== ENCOUNTER 2019-05-14 15:08 | Emergency (ER) | payer MEDICARE, MEDICAID, SELFPAY ==
[2019-05-14] VITALS (44 sets, daily range): BP systolic 105–144; BP diastolic 50–98; PULSE 58–76; RESP 14–27; TEMP 36.1–36.6; O2SAT 94–98
--- NOTE | 2019-05-14 15:07 | W.ED.GENAD ---
Discharge Plan Disposition Patient Disposition: HOME Condition: Stable Discharge Details Chief Complaint: GenMedical Clinical Impression: Fatigue, UTI (urinary tract infection) Primary Care Provider: Mikayla Torres ED Provider: Kayla Bedolla Home Meds and New Rx's Prescriptions: New fosfomycin tromethamine 3 gram packet See Rx Instructions .ROUTE .COMPLEX Qty: 2 RF: 0 Continued divalproex 500 mg tablet,delayed release (DR/EC) 2,500 mg PO .QHS RF: 0 clozapine 100 mg Tablet 100 mg PO DAILY RF: 0 metformin 1,000 mg Tablet 1,000 mg PO BID RF: 0 Nicotrol 10 mg Cartridge 1 inh INHALATION 4-6XD PRNRF: 0 ergocalciferol (vitamin D2) [Vitamin D2] 1,250 mcg (50,000 unit) Capsule 50,000 unit PO DIRECTED RF: 0 CertaVite Senior-Antioxidant 0.4-300-250 mg-mcg-mcg Tablet 1 tab PO DAILY RF: 0 atorvastatin 40 mg Tablet 40 mg PO DAILY RF: 0 acetaminophen 325 mg Tablet 650 mg PO Q4H PRN PRNRF: 0 ipratropium-albuterol 0.5 mg-3 mg(2.5 mg base)/3 mL Solution For Nebulization 3 ml INHALATION BID RF: 0 torsemide 20 mg Tablet 60 mg PO DAILY RF: 0 levetiracetam 500 mg Tablet 500 mg PO BID RF: 0 magnesium oxide 400 mg (241.3 mg magnesium) Tablet 400 mg PO QID RF: 0 docusate sodium [Colace] 100 mg Capsule 100 mg PO BID PRNRF: 0 clozapine 50 mg Tablet 250 mg PO .QHS RF: 0 ferrous gluconate 324 mg (37.5 mg iron) Tablet 324 mg PO BID RF: 0 Combivent Respimat 20-100 mcg/actuation Mist 1 puff INHALATION QID RF: 0 levothyroxine 175 mcg Tablet 175 mcg PO DAILY RF: 0 esomeprazole magnesium [Nexium] 20 mg Capsule,Delayed Release(Dr/Ec) 20 mg PO DAILY RF: 0 polyethylene glycol 3350 17 gram/dose Powder 17 g PO DAILY RF: 0 senna 8.6 mg Capsule 17.2 mg PO .QHS RF: 0 budesonide-formoterol [Symbicort] 160-4.5 mcg/actuation Hfa Aerosol Inhaler 2 puff INHALATION BID RF: 0 olanzapine 5 mg Tablet 2.5 mg PO DAILY RF: 0 nitroglycerin 0.4 mg Tablet, Sublingual 1 mg sublingual PRN PRNRF: 0 benztropine 1 mg tablet 0.5 mg PO TID RF: 0 Discharge Instructions Instructions: Urinary Tract Infection in Women (ED), Fatigue (ED) Additional Instructions: Take the antibiotics as directed until finished. Drink plenty of fluids and get plenty of rest. Follow-up with your primary care doctor in 1 week. Return to the emergency department with any worsening or new concerning symptoms. Discharge Data Discharge Physician: Kayla Bedolla Medical Decision Making 53-year-old female with a history of COPD, diabetes, GERD, hypothyroidism, schizoaffective disorder presents for decreased p.o. intake, decreased urinary output, and lethargy for the past 2 days. Patient was seen here yesterday for the same complaint and had unremarkable labs and was given fluids and sent back to the [facility] with an IV for continued IV fluids if needed. Patient was sent to the ED today for the same symptoms. Per report from the [facility], nursing staff is not certified to use the IV. Patient appears generally fatigued and moving all extremities on arrival but no focal deficits. She is hemodynamically stable. She is afebrile. EKG noted a rate of 67, sinus with less than [address] depression noted in 1, V5 V6. No acute ST elevation. We will repeat screening labs and obtain a urinalysis. Labs reviewed and note a normal white blood cell count. Glucose 65. Troponin negative. TSH within normal limits. Urinalysis notes UTI. Patient was admitted here last month for UTI. She was treated with 1 dose of fosfomycin. Her urine culture was resistant to fluoroquinolones. She is allergic to sulfa and penicillin. Will give 1 dose of fosfomycin here as well as 2 additional doses to be sent with her to the [facility]. Recheck glucose 79. Patient appears more awake and alert and back to baseline. She was given 2 L of fluid and she remained hemodynamically stable. I feel that she is appropriate for discharge back to the [facility]. Advised to follow up with the primary care doctor for re-evaluation. Usual and customary return precautions given prior to discharge. Medical Records Medical records reviewed: Yes I reviewed the patient's medical records. Lab Data Lab results reviewed: Yes I reviewed the patient's lab results. Labs: 05/14/19 16:00 Urine - Reflex from Ua Urine Culture - Pending Laboratory Tests Range/Units 05/14/19 05/14/19 05/14/19 15:15 15:15 15:15 WBC (4.4-10.8) k/cumm 5.76 RBC (4.00-5.20) m/cumm 3.42 L Hgb (12.0-15.5) g/dL 11.0 L Hct (36.0-46.0) % 34.1 L MCV (80-95) fL 99.7 H MCH (27.0-33.0) pg 32.2 MCHC (32.0-36.0) g/dL 32.3 RDW (11.7-14.6) % 14.0 Plt Count (130-400) x1000/uL 181 MPV (8.0-11.0) fL 8.8 Immature Gran % % 0.5 Neutrophils % 40.4 Lymphocytes % 47.2 Monocytes % 11.6 Eosinophils % 0.0 Basophils % 0.3 Absolute Neutrophils (1.2-6.7) k/cumm 2.32 Absolute Lymphocytes (1.2-3.4) k/cumm 2.72 Absolute Monocytes (0.11-0.7) k/cumm 0.67 Absolute Eosinophils (0.0-0.7) k/cumm 0.00 Absolute Basophils (0.0-0.2) k/cumm 0.02 Sodium (136-145) mmol/L 145 Potassium (3.5-5.1) mmol/L 3.5 Chloride (98-107) mmol/L 106 Carbon Dioxide (21.0-32.0) mmol/L 35.5 H Anion Gap (3-11) mmol/L 3.5 BUN (7-18) mg/dL 18 Creatinine (0.55-1.02) mg/dL 0.98 Estimated GFR/1.73 m2 (mL/min/1.73m2) 59.37 Glucose (74-106) mg/dL 65 L D Calcium (8.5-10.1) mg/dL 8.4 L Magnesium (1.8-2.4) mg/dL 2.7 H Total Bilirubin (0.2-1.0) mg/dL 0.3 AST (15-37) U/L 30 ALT (14-59) U/L 13 L Alkaline Phosphatase (46-116) U/L 70 Troponin I (<0.06) ng/Ml < 0.05 Total Protein (6.4-8.2) g/dL 6.5 Albumin (3.4-5.0) g/dL 2.5 L TSH (0.36-3.74) uIU/mL Urine Color (Yellow) Urine Clarity (Clear) Urine pH (5-8) Ur Specific [place] (1.005-1.025) Urine Protein (Negative) mg/dL Urine Ketones (Negative) mg/dL Urine Blood (Negative) Urine Nitrite (Negative) Urine Bilirubin (Negative) Urine Urobilinogen (Up TO 0.2) EU/dL Ur Leukocyte Esterase (Negative) Urine RBC (0-2) HPF Urine WBC (0-5) HPF Ur Epithelial Cells (Negative) HPF Urine Crystals (Negative) HPF Urine Bacteria (Negative) HPF Urine Mucus (Negative) Urine Other (Negative) Ur Culture Indicated? Urine Glucose (Negative) mg/dL Total Valproic Acid (50-100) ug/mL Range/Units 05/14/19 05/14/19 05/14/19 15:15 15:15 16:00 WBC (4.4-10.8) k/cumm RBC (4.00-5.20) m/cumm Hgb (12.0-15.5) g/dL Hct (36.0-46.0) % MCV (80-95) fL MCH (27.0-33.0) pg MCHC (32.0-36.0) g/dL RDW (11.7-14.6) % Plt Count (130-400) x1000/uL MPV (8.0-11.0) fL Immature Gran % % Neutrophils % Lymphocytes % Monocytes % Eosinophils % Basophils % Absolute Neutrophils (1.2-6.7) k/cumm Absolute Lymphocytes (1.2-3.4) k/cumm Absolute Monocytes (0.11-0.7) k/cumm Absolute Eosinophils (0.0-0.7) k/cumm Absolute Basophils (0.0-0.2) k/cumm Sodium (136-145) mmol/L Potassium (3.5-5.1) mmol/L Chloride (98-107) mmol/L Carbon Dioxide (21.0-32.0) mmol/L Anion Gap (3-11) mmol/L BUN (7-18) mg/dL Creatinine (0.55-1.02) mg/dL Estimated GFR/1.73 m2 (mL/min/1.73m2) Glucose (74-106) mg/dL Calcium (8.5-10.1) mg/dL Magnesium (1.8-2.4) mg/dL Total Bilirubin (0.2-1.0) mg/dL AST (15-37) U/L ALT (14-59) U/L Alkaline Phosphatase (46-116) U/L Troponin I (<0.06) ng/Ml Total Protein (6.4-8.2) g/dL Albumin (3.4-5.0) g/dL TSH (0.36-3.74) uIU/mL 0.55 Urine Color (Yellow) Yellow Urine Clarity (Clear) Cloudy Urine pH (5-8) 6.5 Ur Specific [place] (1.005-1.025) 1.025 Urine Protein (Negative) mg/dL 30 H Urine Ketones (Negative) mg/dL Trace Urine Blood (Negative) Trace-intact H Urine Nitrite (Negative) Negative Urine Bilirubin (Negative) Small H Urine Urobilinogen (Up TO 0.2) EU/dL 0.2 Ur Leukocyte Esterase (Negative) Large Urine RBC (0-2) HPF 0-2 Urine WBC (0-5) HPF >50 H Ur Epithelial Cells (Negative) HPF Negative Urine Crystals (Negative) HPF Negative Urine Bacteria (Negative) HPF Packed Urine Mucus (Negative) Negative Urine Other (Negative) Few transitional Ur Culture Indicated? Yes Urine Glucose (Negative) mg/dL Negative Total Valproic Acid (50-100) ug/mL 74.9 ECG Data Attestation: I personally reviewed and interpreted this ECG (s) as follows: Interpretation: Rate of 67, sinus, less than [address] depression noted in 1, V5 and V6. No acute ST elevation. NE 156. QTc 445. QRS 86. HPI General Mode of arrival: EMS. Date/Time Provider Initiated Documentation: 05/14/19 15:13. Limitations to Documentation: no limitations. Information obtained by: patient. History of Present Illness 53 year old F presents to the emergency department with the chief complaint of Sent from the [facility] for concern for lack of appetite, lethargy, Patient started experiencing this day(s) (a few ) and it has been constant. No relieving factors improve symptom(s), No exacerbating factors reported . Patient notes loss of appetite and weakness; denies cough, diaphoresis, fever/chills, nausea/vomiting, shortness of breath and syncope. Patient did receive the following treatments prior to arrival, none Related Data Home Medications Medication Instructions Recorded Confirmed clozapine 100 mg PO DAILY 10/07/18 05/14/19 metformin 1,000 mg PO BID 10/07/18 05/14/19 budesonide-formoterol [Symbicort] 2 puff INHALATION BID 02/06/19 05/14/19 nitroglycerin 1 mg SUBLINGUAL PRN PRN 02/06/19 05/14/19 olanzapine 2.5 mg PO DAILY 02/06/19 05/14/19 divalproex 500 mg tablet,delayed 2,500 mg PO .QHS tab 02/22/19 05/14/19 release CertaVite Senior-Antioxidant 1 tab PO DAILY 03/04/19 05/14/19 Combivent Respimat 1 puff INHALATION QID 03/04/19 05/14/19 Nicotrol 1 inh INHALATION 4-6XD PRN 03/04/19 05/14/19 acetaminophen 650 mg PO Q4H PRN PRN 03/04/19 05/14/19 atorvastatin 40 mg PO DAILY 03/04/19 05/14/19 clozapine 250 mg PO .QHS 03/04/19 05/14/19 docusate sodium [Colace] 100 mg PO BID PRN 03/04/19 05/14/19 ergocalciferol (vitamin D2) 50,000 unit PO DIRECTED 03/04/19 05/14/19 [Vitamin D2] esomeprazole magnesium [Nexium] 20 mg PO DAILY 03/04/19 05/14/19 ferrous gluconate 324 mg PO BID 03/04/19 05/13/19 ipratropium-albuterol 3 ml INHALATION BID 03/04/19 05/14/19 levetiracetam 500 mg PO BID 03/04/19 05/14/19 levothyroxine 175 mcg PO DAILY 03/04/19 05/14/19 magnesium oxide 400 mg PO QID 03/04/19 05/14/19 torsemide 60 mg PO DAILY 03/04/19 05/14/19 polyethylene glycol 3350 17 g PO DAILY 04/25/19 05/14/19 senna 17.2 mg PO .QHS 04/25/19 05/14/19 benztropine 0.5 mg PO TID 05/14/19 05/14/19 fosfomycin tromethamine See Rx Instructions .ROUTE 05/14/19 .COMPLEX #2 each Previous Rx's Medication Instructions Recorded fosfomycin tromethamine See Rx Instructions .ROUTE 05/14/19 .COMPLEX #2 each Allergies Allergy/AdvReac Type Severity Reaction Status Date / Time prednisone Allergy Unknown Unverified 05/14/19 15:16 lithium Allergy Unverified 05/14/19 15:16 oxycodone [From OxyContin] Allergy Unverified 05/14/19 15:16 Penicillins Allergy Unverified 05/14/19 15:16 pioglitazone Allergy Unverified 05/14/19 15:16 Sulfa (Sulfonamide Allergy Unverified 05/14/19 15:16 Antibiotics) tramadol Allergy Unverified 05/14/19 15:16 General DIONE: 3 Review of Systems All systems reviewed & are unremarkable except as noted in HPI and below Constitutional Constitutional: Reports as per HPI, Denies chills, Reports fatigue, Denies fever(s) and Reports lethargy Eyes Eyes: Denies blurry vision ENT Ears, Nose, Mouth, and Throat: Denies dizziness, Denies sore throat and Denies throat swelling Cardiovascular Cardiovascular: Denies chest pain and Denies dyspnea Respiratory Respiratory: Denies cough and Denies dyspnea Gastrointestinal Gastrointestinal: Denies abdominal pain, Denies diarrhea and Denies vomiting Genitourinary Genitourinary: Denies hematuria and Denies dysuria Musculoskeletal Musculoskeletal: Denies back pain and Denies numbness Integumentary/Breasts Skin/Breast: Denies lesions and Denies rash Neurologic Neurologic: Denies dizziness, Denies focal weakness and Denies numbness Endocrine Endocrine: Reports fatigue Allergic/Immunologic Allergic/Immunologic: Denies throat swelling [facility] Social History Smoking/Tobacco Use Status: Current every day Tobacco Type: cigarettes Smoking packs per day: 0.5 Smoking cigarettes per day: 10.0 Alcohol Intake: former Drug use: Never current occupation: Disabled. Lives at [facility] Exam Const General: cooperative and no acute distress Orientation: alert and awake HENMT Head: normal to inspection Face and sinus: normal facial exam Eyes General: appearance normal, both eyes and all related structures EOM: EOM intact bilaterally Neck Neck: normal visual inspection and No submandibular swelling Lymphatic: no lymphadenopathy noted Chest Chest: normal inspection of the chest and no tenderness Resp Effort & Inspection: normal respiratory effort and able to speak in complete sentences Auscultation: clear to auscultation bilaterally Cardio Rate: regular rate Rhythm: regular rhythm GI Inspection: normal to inspection Palpation: soft, not firm, not rigid and nontender Auscultation: normal bowel sounds Skin General skin exam: no rashes or lesions noted Neuro General: alert, awake and oriented x3 Cognition: normal cognition Speech: speech normal Motor: muscle tone normal throughout Sensory Exam: no sensory deficits noted Other: Moving all extremities but appears generally weak throughout. Extrem General: normal to inspection, full ROM, normal capillary refill, no calf tenderness bilaterally and no edema Psych Appearance: grossly normal Mental Status: mental status grossly normal Speech and Movement: speech and movement normal Affect: normal affect
[2019-05-14 15:24] LABS: Abs Immature Grans 0.03 k/cumm (0.0-0.09); Absolute Basophil Count 0.02 k/cumm (0.0-0.2); Absolute Lymphocyte Count 2.72 k/cumm (1.2-3.4); Absolute Monocyte Count 0.67 k/cumm (0.11-0.7); Absolute Neutrophil Count 2.32 k/cumm (1.2-6.7); Basophils % 0.3; HCT 34.1 % (36.0-46.0); Immature Grans % 0.5 %; Lymphocytes % 47.2; Mean Corp. HGB Concentration 32.3 g/dL (32.0-36.0); Mean Corpuscular Hemoglobin 32.2 pg (27.0-33.0); Mean Corpuscular Volume 99.7 fL (80-95); Mean Platelet Volume 8.8 fL (8.0-11.0); Monocytes % 11.6; Neutrophils % 40.4; Platelet Count 181 x1000/uL (130-400); RBC 3.42 m/cumm (4.00-5.20); White Blood Cell Count 5.76 k/cumm (4.4-10.8)
[2019-05-14 15:38] LABS: ALT 13 U/L (14-59); AST 30 U/L (15-37); Albumin 2.5 g/dL (3.4-5.0); Alkaline Phosphatase 70 U/L (46-116); Anion Gap 3.5 mmol/L (3-11); BUN 18 mg/dL (7-18); Bilirubin, Total 0.3 mg/dL (0.2-1.0); CO2 35.5 mmol/L (21.0-32.0); CREATININE 0.98 mg/dL (0.55-1.02); Calcium 8.4 mg/dL (8.5-10.1); Chloride 106 mmol/L (98-107); Estimated GFR 59.37 (mL/min/1.73m2); Glucose 65 mg/dL (74-106); Potassium 3.5 mmol/L (3.5-5.1); Sodium 145 mmol/L (136-145); Total Protein 6.5 g/dL (6.4-8.2)
[2019-05-14 15:43] LABS: Magnesium 2.7 mg/dL (1.8-2.4)
[2019-05-14 15:44] LABS: Troponin I < 0.05 ng/Ml (<0.06)
[2019-05-14 16:14] LABS: Bilirubin Small (Negative); Blood Trace-intact (Negative); Clarity Cloudy (Clear); Glucose Negative (Negative); Ketones Trace mg/dL (Negative); Leukocyte Esterase Large (Negative); Nitrite Negative (Negative); Specific Gravity 1.025 (1.005-1.025); Urobilinogen 0.2 EU/dL (Up TO 0.2); pH 6.5 (5-8)
[2019-05-14 16:19] LABS: Bacteria Packed HPF (Negative); C & S Indicated? Yes; Crystals Negative HPF (Negative); Epithelial Cells Negative HPF (Negative); Mucus Negative (Negative); Other Cells Few Transitional (Negative); RBC 0-2 HPF (0-2); WBC >50 HPF (0-5)
[2019-05-14] MEDS: Normal Saline 1,000 ML 1000 ML IV ×2 (16:22→17:56)
[2019-05-14] MEDS: Normal Saline Flush 10 ML SYR IVP (16:22)
[2019-05-14 17:22] LABS: VALPROIC ACID 74.9 ug/mL (50-100)
[2019-05-14 17:31] LABS: TSH (W/Ref FT4) 0.55 uIU/mL (0.36-3.74)
--- NOTE | 2019-05-14 17:43 | NUR.NOTE ---
pt refused her egg salad alejandrinawhcahterine . she did take applesauce and milk ( 1/2 cup each ) Nursing Note:
[2019-05-14] MEDS: Fosfomycin Tromethamine 3 GM PACKET PO (17:54)
[2019-05-17 11:22] LABS: Levetiracetam 33.9 mcg/mL
== END 2019-05-14 20:50 | disposition home or self-care (01) ==
PROVIDERS: Emergency Provider Physician Assistant; PCP Family Medicine
DX: R53.83 Other fatigue (principal); N39.0 Urinary tract infection, site not specified; B96.20 Unspecified Escherichia coli [E. coli] as the cause of diseases classified elsewhere; J44.9 Chronic obstructive pulmonary disease, unspecified; F17.210 Nicotine dependence, cigarettes, uncomplicated; E11.9 Type 2 diabetes mellitus without complications; Z79.84 Long term (current) use of oral hypoglycemic drugs
CPT/HCPCS: 36415; 80053; 87077; 93005; 96360; 96361; 99284; 80164; 80177; 81003; 81015; 83735; 84443; 84484; 85025; 87086; 87186; 93010; J3490

== ENCOUNTER 2019-05-23 12:13 | Outpatient (REF) | payer MEDICARE, MEDICAID, SELFPAY ==
[2019-05-23 12:35] LABS: Anion Gap 7.7 mmol/L (3-11); BUN 7 mg/dL (7-18); CO2 32.3 mmol/L (21.0-32.0); CREATININE 0.65 mg/dL (0.55-1.02); Calcium 8.7 mg/dL (8.5-10.1); Chloride 105 mmol/L (98-107); Glucose 112 mg/dL (74-106); Magnesium 1.6 mg/dL (1.8-2.4); Potassium 3.3 mmol/L (3.5-5.1); Sodium 145 mmol/L (136-145)
== END 2019-05-23 12:33 ==
LOC: LBN 12:13
PROVIDERS: PCP Family Medicine; Visit Provider Family Medicine
DX: I10 Essential (primary) hypertension (principal); R25.2 Cramp and spasm
CPT/HCPCS: 80048; 83735

== ENCOUNTER → 2019-05-24 08:17 | Outpatient (BNVA) | payer MEDICARE, MEDICAID, SELFPAY | PROVIDERS: PCP Family Medicine; Referring Provider Family Medicine; Visit Provider Psychiatry & Neurology Neurology | DX: R69 Illness, unspecified (principal) ==

== ENCOUNTER 2019-05-30 14:11 | Outpatient (REF) | payer MEDICARE, MEDICAID, SELFPAY ==
[2019-05-30 13:29] LABS: Abs Immature Grans 0.01 k/cumm (0.0-0.09); Absolute Basophil Count 0.03 k/cumm (0.0-0.2); Absolute Lymphocyte Count 2.43 k/cumm (1.2-3.4); Absolute Monocyte Count 0.71 k/cumm (0.11-0.7); Absolute Neutrophil Count 1.65 k/cumm (1.2-6.7); Basophils % 0.6; HCT 33.6 % (36.0-46.0); HGB 10.9 g/dL (12.0-15.5); Immature Grans % 0.2 %; Lymphocytes % 50.3; Mean Corp. HGB Concentration 32.4 g/dL (32.0-36.0); Mean Corpuscular Hemoglobin 32.3 pg (27.0-33.0); Mean Corpuscular Volume 99.7 fL (80-95); Monocytes % 14.7; Neutrophils % 34.2; Platelet Count 146 x1000/uL (130-400); RBC 3.37 m/cumm (4.00-5.20); White Blood Cell Count 4.83 k/cumm (4.4-10.8)
== END 2019-05-30 14:31 ==
LOC: LBN 14:11
PROVIDERS: PCP Family Medicine; Visit Provider Family Medicine
DX: R53.83 Other fatigue (principal)
CPT/HCPCS: 85025

== ENCOUNTER 2019-06-01 11:29 | Outpatient (REF) | payer MEDICARE, MEDICAID, SELFPAY ==
[2019-06-01 12:24] LABS: Creatinine,Urine 135.23 mg/dL
[2019-06-02 09:01] LABS: Magnesium Random Urine 17.7 mg/dL (See Note)
== END 2019-06-01 11:49 ==
LOC: LBN 11:29
PROVIDERS: PCP Family Medicine; Visit Provider Family Medicine
DX: N39.0 Urinary tract infection, site not specified (principal); R82.998 Other abnormal findings in urine
CPT/HCPCS: 83735; 82565

== ENCOUNTER 2019-07-05 10:57 | Outpatient (REF) | payer MEDICARE, MEDICAID, SELFPAY ==
[2019-07-05 12:10] LABS: Abs Immature Grans 0.01 k/cumm (0.0-0.09); Absolute Basophil Count 0.02 k/cumm (0.0-0.2); Absolute Lymphocyte Count 3.42 k/cumm (1.2-3.4); Absolute Monocyte Count 0.56 k/cumm (0.11-0.7); Absolute Neutrophil Count 2.78 k/cumm (1.2-6.7); Basophils % 0.3; HCT 37.9 % (36.0-46.0); HGB 12.4 g/dL (12.0-15.5); Immature Grans % 0.1 %; Lymphocytes % 50.4; Mean Corp. HGB Concentration 32.7 g/dL (32.0-36.0); Mean Corpuscular Hemoglobin 32.6 pg (27.0-33.0); Mean Corpuscular Volume 99.7 fL (80-95); Mean Platelet Volume 10.8 fL (8.0-11.0); Monocytes % 8.2; Platelet Count 204 x1000/uL (130-400); RBC Distribution Width 14.2 % (11.7-14.6); White Blood Cell Count 6.79 k/cumm (4.4-10.8)
== END 2019-07-05 11:17 ==
LOC: LBN 10:57
PROVIDERS: PCP Family Medicine; Visit Provider Family Medicine
DX: F25.0 Schizoaffective disorder, bipolar type (principal); Z79.899 Other long term (current) drug therapy
CPT/HCPCS: 85025

== ENCOUNTER 2019-07-18 14:41 | Outpatient (REF) | payer MEDICARE, MEDICAID, SELFPAY ==
[2019-07-18 15:23] LABS: Bilirubin Negative (Negative); Blood Negative (Negative); Clarity Clear (Clear); Glucose Negative (Negative); Ketones Negative (Negative); Leukocyte Esterase Trace (Negative); Nitrite Negative (Negative); Urobilinogen 0.2 EU/dL (Up TO 0.2); pH 6.5 (5-8)
[2019-07-18 15:38] LABS: Bacteria Moderate HPF (Negative); C & S Indicated? Yes; Casts Negative LPF (Negative); Crystals Negative HPF (Negative); Epithelial Cells Few HPF (Negative); Mucus Negative (Negative); RBC Negative HPF (0-2)
== END 2019-07-18 15:01 ==
LOC: LBN 14:41
PROVIDERS: PCP Family Medicine; Visit Provider Family Medicine
DX: R82.998 Other abnormal findings in urine (principal)
CPT/HCPCS: 81003; 81015; 87086

== ENCOUNTER → 2019-08-04 12:25 | Outpatient (BNVA) | payer MEDICARE, MEDICAID, SELFPAY | PROVIDERS: PCP Family Medicine; Referring Provider Family Medicine; Visit Provider Psychiatry & Neurology Neurology | DX: G21.9 Secondary parkinsonism, unspecified (principal); E11.40 Type 2 diabetes mellitus with diabetic neuropathy, unspecified; R41.89 Other symptoms and signs involving cognitive functions and awareness; R29.6 Repeated falls; Z87.820 Personal history of traumatic brain injury; J44.9 Chronic obstructive pulmonary disease, unspecified | CPT/HCPCS: 99213 ==

== ENCOUNTER 2019-08-19 12:21 | Outpatient (CLI) | payer MEDICARE, MEDICAID, SELFPAY ==
[2019-08-19 13:27] LABS: Abs Immature Grans 0.03 k/cumm (0.0-0.09); Absolute Basophil Count 0.02 k/cumm (0.0-0.2); Absolute Lymphocyte Count 2.25 k/cumm (1.2-3.4); Absolute Monocyte Count 0.55 k/cumm (0.11-0.7); Basophils % 0.3; HCT 35.1 % (36.0-46.0); HGB 11.8 g/dL (12.0-15.5); Immature Grans % 0.4 %; Lymphocytes % 28.7; Mean Corp. HGB Concentration 33.6 g/dL (32.0-36.0); Mean Corpuscular Hemoglobin 32.8 pg (27.0-33.0); Mean Corpuscular Volume 97.5 fL (80-95); Mean Platelet Volume 10.2 fL (8.0-11.0); Neutrophils % 63.6; Platelet Count 170 x1000/uL (130-400); RBC Distribution Width 12.3 % (11.7-14.6); White Blood Cell Count 7.85 k/cumm (4.4-10.8)
[2019-08-19 13:40] LABS: Anion Gap 8.4 mmol/L (3-11); BUN 15 mg/dL (7-18); CO2 31.6 mmol/L (21.0-32.0); CREATININE 1.17 mg/dL (0.55-1.02); Chloride 94 mmol/L (98-107); Estimated GFR 48.39 (mL/min/1.73m2); Potassium 4.1 mmol/L (3.5-5.1); Sodium 134 mmol/L (136-145)
[2019-08-19 13:45] LABS: Glucose 509 mg/dL (74-106)
[2019-08-22 16:38] LABS: Hemoglobin A1C 8.7 % (3.8-5.6)
== END 2019-08-19 12:41 ==
PROVIDERS: PCP Family Medicine; Visit Provider Family Medicine
DX: F20.9 Schizophrenia, unspecified (principal); Z51.81 Encounter for therapeutic drug level monitoring; Z79.899 Other long term (current) drug therapy; E11.9 Type 2 diabetes mellitus without complications
CPT/HCPCS: 36415; 80048; 83036; 85025

== ENCOUNTER 2019-09-01 17:06 | Emergency (ER) | payer MEDICARE, MEDICAID, SELFPAY ==
[2019-09-01] VITALS (11 sets, daily range): BP systolic 132–159; BP diastolic 51–84; PULSE 72–88; RESP 18–28; TEMP 36.5; O2SAT 96–98
--- NOTE | 2019-09-01 17:15 | ED.GENADUL_ITS ---
Discharge Plan Disposition Patient Disposition: LEVEL III [facility] Condition: Stable Discharge Details Chief Complaint: Chest Pain Clinical Impression: Urinary tract infection Primary Care Provider: Mikayla Torres ED Provider: [place]t [place] Home Meds and New Rx's Prescriptions: New nitrofurantoin macrocrystal 100 mg capsule 100 mg PO BID Qty: 10 RF: 0 Continued omeprazole 20 mg capsule,delayed release(DR/EC) 20 mg PO BID RF: 0 potassium chloride 10 mEq tablet extended release 30 meq PO DAILY RF: 0 buspirone 7.5 mg tablet 7.5 mg PO Q8H PRN PRNRF: 0 benztropine 1 mg tablet 1 mg PO BID RF: 0 divalproex 500 mg tablet,delayed release (DR/EC) 2,000 mg PO .QHS RF: 0 metformin 1,000 mg Tablet 500 mg PO QAM RF: 0 Nicotrol 10 mg Cartridge 1 inh INHALATION 4-6XD PRNRF: 0 ergocalciferol (vitamin D2) [Vitamin D2] 1,250 mcg (50,000 unit) Capsule 50,000 unit PO DIRECTED RF: 0 CertaVite Senior-Antioxidant 0.4-300-250 mg-mcg-mcg Tablet 1 tab PO DAILY RF: 0 atorvastatin 40 mg Tablet 40 mg PO DAILY RF: 0 ipratropium-albuterol 0.5 mg-3 mg(2.5 mg base)/3 mL Solution For Nebulization 3 ml INHALATION BID RF: 0 torsemide 20 mg Tablet 60 mg PO DAILY RF: 0 docusate sodium [Colace] 100 mg Capsule 100 mg PO BID RF: 0 clozapine 50 mg Tablet 100 mg PO QAM RF: 0 ferrous gluconate 324 mg (37.5 mg iron) Tablet 324 mg PO BID RF: 0 Combivent Respimat 20-100 mcg/actuation Mist 1 puff INHALATION QID PRNRF: 0 levothyroxine 175 mcg Tablet 175 mcg PO DAILY RF: 0 polyethylene glycol 3350 17 gram/dose Powder 17 g PO DAILY RF: 0 senna 8.6 mg Capsule 17.2 mg PO .QHS RF: 0 acetaminophen 500 mg Tablet 1,000 mg PO TID RF: 0 insulin aspart U-100 [Novolog Flexpen U-100 Insulin] 100 unit/mL (3 mL) Insulin Pen 1 - 6 unit SUBCUT TID PRNRF: 0 magnesium L-lactate 84 mg Tablet Extended Release 84 mg PO BID RF: 0 clozapine 50 mg Tablet 250 mg PO HS RF: 0 budesonide-formoterol [Symbicort] 160-4.5 mcg/actuation Hfa Aerosol Inhaler 2 puff INHALATION BID RF: 0 olanzapine 5 mg Tablet 2.5 mg PO DAILY RF: 0 nitroglycerin 0.4 mg Tablet, Sublingual 1 mg sublingual PRN PRNRF: 0 Discharge Instructions Instructions: Urinary Tract Infection in Women (ED) Additional Instructions: Continue your regular medications. Your work-up in the emergency department this evening included chest x-ray, cardiac troponin x2, general screening laboratories and urinalysis. Take the nitrofurantoin as prescribed. You were given the first dose of nitrofurantoin tonight, you received an evening meal. Medical Decision Making 53-year-old female with a history of diastolic dysfunction, on diuretic, presents from local halfway where she has been residing. She is a history of schizoaffective disorder and cognitive impairment. She developed sub- sternal/epigastric spasmodic type pain this afternoon, it appeared to be somewhat improved with nitroglycerin once at the halfway and again x1 in the ambulance. She is also given aspirin prior to arrival. The patient arrives with blood pressure 159/84, otherwise normal vital signs and oxygenating normally at 96%. Speaking in full sentences. Differential diagnosis includes mild diastolic dysfunction, acute coronary syndrome, gastritis, esophageal spasm, and patient does have a history of UTIs related to presentations in the past. Patient is given GI cocktail and 0.5 mg of Ativan. With this she has improvement and request to eat dinner. Her laboratories reveal mildly elevated BNP of 2276. Renal function is preserved. Troponin negative x2. There is evidence of positive urinary tract infection. Review of records reveals previous E. coli UTI with multiple antibiotic resistance. Does appear nitrofurantoin is the best choice based on recent culture. Chest x-ray without acute findings. Patient oxygenating normally, note is made of the elevated BNP but she does not have respiratory distress, is oxygenating normally, and we will have her continue her diuretic. Will discharge with nitrofurantoin as above. Lab Data Lab results reviewed: Yes I reviewed the patient's lab results. Labs: Laboratory Results - last 24 hr 09/01/19 09/01/19 09/01/19 17:15 17:15 17:15 WBC 8.45 RBC 3.56 L Hgb 11.5 L Hct 34.5 L MCV 96.9 H MCH 32.3 MCHC 33.3 RDW 12.4 Plt Count 167 MPV 10.1 Immature Gran % 0.4 Neutrophils % 58.7 Lymphocytes % 33.6 Monocytes % 7.1 Eosinophils % 0.0 Basophils % 0.2 Absolute Neutrophils 4.96 Absolute Lymphocytes 2.84 Absolute Monocytes 0.60 Absolute Eosinophils 0.00 Absolute Basophils 0.02 Sodium 139 Potassium 3.9 Chloride 99 Carbon Dioxide 30.8 Anion Gap 9.2 BUN 15 Creatinine 0.97 Estimated GFR/1.73 m2 >= 60.00 Glucose 241 H Calcium 8.7 Magnesium 1.5 L Total Bilirubin 0.3 AST 24 ALT 24 Alkaline Phosphatase 77 Troponin I < 0.05 NT-Pro-B Natriuret Pep 2276 H Total Protein 6.6 Albumin 3.2 L Lipase 144 Urine Color Urine Clarity Urine pH Ur Specific Plaza Urine Protein Urine Ketones Urine Blood Urine Nitrite Urine Bilirubin Urine Urobilinogen Ur Leukocyte Esterase Urine RBC Urine WBC Ur Epithelial Cells Urine Crystals Urine Bacteria Urine Mucus Ur Culture Indicated? Urine Glucose 09/01/19 09/01/19 17:33 19:56 WBC RBC Hgb Hct MCV MCH MCHC RDW Plt Count MPV Immature Gran % Neutrophils % Lymphocytes % Monocytes % Eosinophils % Basophils % Absolute Neutrophils Absolute Lymphocytes Absolute Monocytes Absolute Eosinophils Absolute Basophils Sodium Potassium Chloride Carbon Dioxide Anion Gap BUN Creatinine Estimated GFR/1.73 m2 Glucose Calcium Magnesium Total Bilirubin AST ALT Alkaline Phosphatase Troponin I < 0.05 NT-Pro-B Natriuret Pep Total Protein Albumin Lipase Urine Color Yellow Urine Clarity Sl cloudy Urine pH 6.[address] 1.025 Urine Protein Negative Urine Ketones Negative Urine Blood Negative Urine Nitrite Negative Urine Bilirubin Negative Urine Urobilinogen 0.2 Ur Leukocyte Esterase Small H Urine RBC 0-2 Urine WBC 20-50 H Ur Epithelial Cells Few Urine Crystals Negative Urine Bacteria Moderate Urine Mucus Negative Ur Culture Indicated? Yes Urine Glucose Negative ECG Data Attestation: I personally reviewed and interpreted this ECG (s) as follows: Interpretation: Normal sinus rhythm with a rate of 84, the GA interval is 108, there is left bundle branch block present. This is similar to branch block pattern seen on EKG 04/25/2019 HPI General Mode of arrival: ambulatory . Date/Time Provider Initiated Documentation: 09/01/19 17:18 . Limitations to Documentation: no limitations . Information obtained by: patient, EMS and old records reviewed . History of Present Illness 53 year old F presents to the emergency department with the chief complaint of Epigastric/chest pain intermittently., described as moderate and similar to prior episodes, Quality is described as other (Pressure), and is localized to the abdomen. Patient reports no radiation. Patient started experiencing this hour(s) and it has been intermittent. Medication improves symptom(s), No exacerbating factors reported . Patient notes no other symptoms.; denies nausea/vomiting and shortness of breath. Patient did receive the following treatments prior to arrival, Aspirin and other (Given nitroglycerin x2 and aspirin) Related Data Home Medications Medication Instructions Recorded Confirmed metformin 500 mg PO QAM 10/07/18 09/01/19 budesonide-formoterol [Symbicort] 2 puff INHALATION BID 02/06/19 09/01/19 nitroglycerin 1 mg SUBLINGUAL PRN PRN 02/06/19 09/01/19 olanzapine 2.5 mg PO DAILY 02/06/19 09/01/19 CertaVite Senior-Antioxidant 1 tab PO DAILY 03/04/19 09/01/19 Combivent Respimat 1 puff INHALATION QID PRN 03/04/19 09/01/19 Nicotrol 1 inh INHALATION 4-6XD PRN 03/04/19 09/01/19 atorvastatin 40 mg PO DAILY 03/04/19 09/01/19 clozapine 100 mg PO QAM 03/04/19 09/01/19 docusate sodium [Colace] 100 mg PO BID 03/04/19 09/01/19 ergocalciferol (vitamin D2) 50,000 unit PO DIRECTED 03/04/19 09/01/19 [Vitamin D2] ferrous gluconate 324 mg PO BID 03/04/19 09/01/19 ipratropium-albuterol 3 ml INHALATION BID 03/04/19 09/01/19 levothyroxine 175 mcg PO DAILY 03/04/19 09/01/19 torsemide 60 mg PO DAILY 03/04/19 09/01/19 polyethylene glycol 3350 17 g PO DAILY 04/25/19 09/01/19 senna 17.2 mg PO .QHS 04/25/19 09/01/19 benztropine 1 mg tablet 1 mg PO BID 08/04/19 09/01/19 buspirone 7.5 mg tablet 7.5 mg PO Q8H PRN PRN 08/04/19 09/01/19 divalproex 500 mg tablet,delayed 2,000 mg PO .QHS tab 08/04/19 09/01/19 release omeprazole 20 mg capsule,delayed 20 mg PO BID 08/04/19 09/01/19 release potassium chloride 10 mEq 30 meq PO DAILY tab 08/04/19 09/01/19 tablet,extended release acetaminophen 1,000 mg PO TID 09/01/19 09/01/19 clozapine 250 mg PO HS 09/01/19 09/01/19 insulin aspart U-100 [Novolog 1 - 6 unit SUBCUT TID PRN 09/01/19 09/01/19 Flexpen U-100 Insulin] magnesium L-lactate 84 mg PO BID 09/01/19 09/01/19 nitrofurantoin macrocrystal 100 mg PO BID #10 cap 09/01/19 Previous Rx's Medication Instructions Recorded nitrofurantoin macrocrystal 100 mg PO BID #10 cap 09/01/19 Allergies Allergy/AdvReac Type Severity Reaction Status Date / Time prednisone Allergy Unknown Unverified 09/01/19 18:24 lithium Allergy Unverified 09/01/19 18:24 oxycodone [From OxyContin] Allergy Unverified 09/01/19 18:24 Penicillins Allergy Unverified 09/01/19 18:24 pioglitazone Allergy Unverified 09/01/19 18:24 Sulfa (Sulfonamide Allergy Unverified 09/01/19 18:24 Antibiotics) tramadol Allergy Unverified 09/01/19 18:24 General Stated Complaint: Chest Pain DIONE: 2 Review of Systems Narrative: Mild lower extremity swelling, no recent illness, no change to taste or smell. 5 systems reviewed and otherwise negative [facility] Medical History Acute kidney injury (Acute) 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) Bipolar 1 disorder (Acute) Cognitive impairment (Acute) COPD (chronic obstructive pulmonary disease) (Chronic) Diabetes mellitus type II, controlled (Acute) Diabetic neuropathy (Acute) Diastolic dysfunction (Chronic) Falls frequently (Resolved) GERD (gastroesophageal reflux disease) (Chronic) Heart murmur (Acute) History of alcohol abuse (Acute) Hyperthyroidism (Chronic) Hypothyroid (Chronic) Left bundle branch block (Acute) AVANI (obstructive sleep apnea) (Chronic) Pancreatitis (Chronic) Schizoaffective disorder (Acute) Secondary Parkinson disease (Acute) Subdural hematoma (Resolved) small right September 2018 2/2 mechanical fall Tobacco dependence (Acute) Surgical History H/O abdominal surgery (Acute) S/P thoracotomy (Acute) Social History (Updated 08/04/19 @ 12:55 by Noemi Yao LPN) Smoking/Tobacco Use Status: Current every day Tobacco Type: cigarettes Smoking packs per day: 0.5 Smoking cigarettes per day: 10.0 Alcohol Intake: former Drug use: Never Substance use type: does not use Housing: halfway current occupation: Disabled. Lives at [facility] Seatbelt use: always Do you feel safe at home: Yes Do you feel safe in your relationship?: Yes Additional Social history: Resident @ [employer] Exam Narrative Exam Narrative: GEN: awake, alert, oriented 3. Pleasant, well groomed, interactive. HEAD: Normocephalic, atraumatic ENT: Mucous membranes moist, oropharynx unremarkable, External ear exam unremarkable EYES: PERRL, EOMI NECK: Full ROM, no BRITNI, no menigismus CHEST/RESP: Nontender, clear to auscultation bilateral, no wheeze/rhonchi/rales CARDIOVASCULAR: RRR, there is a left upper sternal border soft blowing systolic murmur rated 2-3 out of 6, no rub meryl. 2+ Rad pulse bilateral ABDOMEN: Soft, mild epigastric tenderness, no mass. +Bowel sounds EXT: Full ROM, 1+ pretibial edema, no rash Neuro: Grossly normal neurologic exam, conversant, interactive. Psych: Speech fluent, thoughts congruent, affect normal Course Vital Signs Vital signs: Vital Signs Temperature 36.5 C 09/01/19 17:08 Pulse 88 09/01/19 17:08 Respiratory Rate 20 09/01/19 17:08 Blood Pressure 159/84 H 09/01/19 17:08 Pulse Oximetry 96 09/01/19 17:08 Temperature 36.5 C 09/01/19 17:08 Temperature Source Skin 09/01/19 17:08 Pulse 88 09/01/19 17:08 Respiratory Rate 20 09/01/19 17:08 Blood Pressure 159/84 H 09/01/19 17:08 Blood Pressure Position Supine 09/01/19 17:08 Pulse Oximetry 96 09/01/19 17:08 Oxygen Delivery Method Room Air 09/01/19 17:08 Oxygen Flow Rate 0 09/01/19 17:08
[2019-09-01] MEDS: LORazepam 2 MG/ML VIAL 0.5 MG IVP (17:23)
[2019-09-01 17:31] LABS: Abs Immature Grans 0.03 k/cumm (0.0-0.09); Absolute Basophil Count 0.02 k/cumm (0.0-0.2); Absolute Lymphocyte Count 2.84 k/cumm (1.2-3.4); Absolute Neutrophil Count 4.96 k/cumm (1.2-6.7); Basophils % 0.2; HCT 34.5 % (36.0-46.0); HGB 11.5 g/dL (12.0-15.5); Immature Grans % 0.4 %; Lymphocytes % 33.6; Mean Corp. HGB Concentration 33.3 g/dL (32.0-36.0); Mean Corpuscular Hemoglobin 32.3 pg (27.0-33.0); Mean Corpuscular Volume 96.9 fL (80-95); Mean Platelet Volume 10.1 fL (8.0-11.0); Monocytes % 7.1; Neutrophils % 58.7; Platelet Count 167 x1000/uL (130-400); RBC 3.56 m/cumm (4.00-5.20); RBC Distribution Width 12.4 % (11.7-14.6); White Blood Cell Count 8.45 k/cumm (4.4-10.8)
[2019-09-01 17:40] LABS: Bilirubin Negative (Negative); Blood Negative (Negative); Clarity Sl Cloudy (Clear); Glucose Negative (Negative); Ketones Negative (Negative); Leukocyte Esterase Small (Negative); Nitrite Negative (Negative); Specific Gravity 1.025 (1.005-1.025); Urobilinogen 0.2 EU/dL (Up TO 0.2); pH 6.5 (5-8)
[2019-09-01 17:51] LABS: Bacteria Moderate HPF (Negative); Epithelial Cells Few HPF (Negative); RBC 0-2 HPF (0-2); WBC 20-50 HPF (0-5)
[2019-09-01 17:52] LABS: C & S Indicated? Yes; Crystals Negative HPF (Negative); Mucus Negative (Negative)
[2019-09-01 17:52] LABS: Lipase 144 U/L (73-393); Magnesium 1.5 mg/dL (1.8-2.4); NT-proBNP 2276 pg/mL (<300); Troponin I < 0.05 ng/mL (<0.06)
[2019-09-01 17:54] LABS: ALT 24 U/L (14-59); AST 24 U/L (15-37); Albumin 3.2 g/dL (3.4-5.0); Alkaline Phosphatase 77 U/L (46-116); Anion Gap 9.2 mmol/L (3-11); BUN 15 mg/dL (7-18); Bilirubin, Total 0.3 mg/dL (0.2-1.0); CO2 30.8 mmol/L (21.0-32.0); CREATININE 0.97 mg/dL (0.55-1.02); Calcium 8.7 mg/dL (8.5-10.1); Chloride 99 mmol/L (98-107); Glucose 241 mg/dL (74-106); Potassium 3.9 mmol/L (3.5-5.1); Sodium 139 mmol/L (136-145); Total Protein 6.6 g/dL (6.4-8.2)
--- NOTE | 2019-09-01 19:21 | DI.RAD_ITS ---
EXAM: XR CHEST 1V IN DI DEPT CLINICAL HISTORY: substernal/spigastric pain TECHNIQUE: COMPARISON: CR XR RIBS RT W PA LAT CHEST from 04/26/2019 FINDINGS: Portable AP chest was obtained. Heart is not enlarged. Lungs are grossly clear and well expanded. No pleural effusion seen on this frontal view. IMPRESSION: No evidence of acute process.
--- NOTE | 2019-09-01 19:37 | DI.VRAD_ITS ---
PROCEDURE INFORMATION: Exam: XR Chest, 1 View Exam date and time: 09/01/2019 7:22 PM Age: 53 years old Clinical indication: Sternal or substernal pain TECHNIQUE: Imaging protocol: XR of the chest Views: 1 view. COMPARISON: CR XR RIBS RT W PA LAT CHEST 04/26/2019 12:29 PM FINDINGS: Lungs: No focal consolidation. Mild bibasilar atelectasis. Pleural space: No pleural effusion. No pneumothorax. Heart/Mediastinum: The heart and mediastinum are stable in appearance. Bones/joints: There are multilevel degenerative changes in the spine. IMPRESSION: No acute cardiopulmonary disease. Dictated and Authenticated by: Vignesh Levin MD. Ordering:CORRINA Gregory MD
[2019-09-01 20:27] LABS: Troponin I < 0.05 ng/mL (<0.06)
[2019-09-01] MEDS: MacroBID 100 MG CAP, 2 CAPS/BTL PO (20:37)
== END 2019-09-01 21:15 | disposition designated cancer center or children's hospital (05) ==
PROVIDERS: Emergency Provider Emergency Medicine; PCP Family Medicine
DX: N39.0 Urinary tract infection, site not specified (principal); R10.13 Epigastric pain; Z87.440 Personal history of urinary (tract) infections; G20 Parkinson's disease; E11.9 Type 2 diabetes mellitus without complications; Z79.84 Long term (current) use of oral hypoglycemic drugs; J44.9 Chronic obstructive pulmonary disease, unspecified; F17.210 Nicotine dependence, cigarettes, uncomplicated
CPT/HCPCS: 36415; 80053; 83690; 87077; 93005; 96374; 99285; 71045; 81003; 81015; 83735; 83880; 84484; 85025; 87086; 87186; 93010; 99284; J2060

== ENCOUNTER 2019-10-03 21:21 | Outpatient (REF) | payer MEDICARE, MEDICAID, SELFPAY ==
[2019-10-03 17:21] LABS: Abs Immature Grans 0.04 k/cumm (0.0-0.09); Absolute Basophil Count 0.05 k/cumm (0.0-0.2); Absolute Lymphocyte Count 2.93 k/cumm (1.2-3.4); Absolute Monocyte Count 0.67 k/cumm (0.11-0.7); Absolute Neutrophil Count 3.81 k/cumm (1.2-6.7); Basophils % 0.7; HCT 35.8 % (36.0-46.0); HGB 11.9 g/dL (12.0-15.5); Immature Grans % 0.5 %; Lymphocytes % 39.1; Mean Corp. HGB Concentration 33.2 g/dL (32.0-36.0); Mean Corpuscular Hemoglobin 32.4 pg (27.0-33.0); Mean Corpuscular Volume 97.5 fL (80-95); Mean Platelet Volume 10.5 fL (8.0-11.0); Monocytes % 8.9; Neutrophils % 50.8; Platelet Count 177 x1000/uL (130-400); RBC 3.67 m/cumm (4.00-5.20); RBC Distribution Width 12.6 % (11.7-14.6)
[2019-10-03 17:34] LABS: VALPROIC ACID 64.8 ug/mL (50-100)
[2019-10-03 17:35] LABS: ALT 25 U/L (14-59); AST 26 U/L (15-37); Alkaline Phosphatase 77 U/L (46-116); Anion Gap 9.4 mmol/L (3-11); BUN 10 mg/dL (7-18); Bilirubin, Total 0.3 mg/dL (0.2-1.0); CO2 29.6 mmol/L (21.0-32.0); Calcium 8.7 mg/dL (8.5-10.1); Chloride 100 mmol/L (98-107); Estimated GFR 51.96 (mL/min/1.73m2); Glucose 279 mg/dL (74-106); Magnesium 1.6 mg/dL (1.8-2.4); Sodium 139 mmol/L (136-145); Total Protein 6.8 g/dL (6.4-8.2)
== END 2019-10-03 21:41 ==
LOC: LBN 21:21
PROVIDERS: PCP Family Medicine; Visit Provider Family Medicine
DX: F25.9 Schizoaffective disorder, unspecified (principal)
CPT/HCPCS: 80053; 80164; 83735; 85025

== ENCOUNTER 2019-11-18 20:25 | Outpatient (REF) | payer MEDICARE, MEDICAID, SELFPAY ==
[2019-11-18 20:56] LABS: Abs Immature Grans 0.03 10^3/uL (0.0-0.06); Absolute Basophil Count 0.06 10^3/uL (0.0-0.2); Absolute Eosinophil Count 0.12 10^3/uL (0.0-0.7); Absolute Lymphocyte Count 3.24 10^3/uL (1.2-3.4); Absolute Monocyte Count 0.67 10^3/uL (0.1-0.8); Absolute Neutrophil Count 3.66 10^3/uL (1.2-6.7); Basophils % 0.8; Eosinophils % 1.5; HCT 32.6 % (36.0-46.0); HGB 10.9 g/dL (11.2-15.7); Immature Grans % 0.4; Lymphocytes % 41.6; MCHC 33.4 % (32.0-36.0); MCV 95.6 fL (80-95); MPV 10.7 fL (8.0-11.0); Monocytes % 8.6; Neutrophils % 47.1; Nucleated RBC 0 %; Platelet Count 143 10^3/uL (130-400); RBC 3.41 10^6/uL (3.93-5.22); RDW 12.5 % (11.7-14.6); RDW-SD 43.6 fL; WBC 7.78 10^3/uL (4.4-10.8)
[2019-11-18 21:06] LABS: Magnesium 1.5 mg/dL (1.8-2.4)
== END 2019-11-18 20:45 ==
LOC: LBN 20:25
PROVIDERS: PCP Family Medicine; Visit Provider Nurse Practitioner Gerontology
DX: F25.9 Schizoaffective disorder, unspecified (principal); Z79.899 Other long term (current) drug therapy; E11.9 Type 2 diabetes mellitus without complications
CPT/HCPCS: 83735; 85025

== ENCOUNTER 2019-12-17 15:39 | Outpatient (REF) | payer MEDICARE, MEDICAID, SELFPAY ==
[2019-12-17 16:21] LABS: Abs Immature Grans 0.06 10^3/uL (0.0-0.06); Absolute Basophil Count 0.04 10^3/uL (0.0-0.2); Absolute Eosinophil Count 0.27 10^3/uL (0.0-0.7); Absolute Lymphocyte Count 3.36 10^3/uL (1.2-3.4); Absolute Monocyte Count 0.78 10^3/uL (0.1-0.8); Absolute Neutrophil Count 5.77 10^3/uL (1.2-6.7); Basophils % 0.4; Eosinophils % 2.6; HCT 34.9 % (36.0-46.0); HGB 11.7 g/dL (11.2-15.7); Immature Grans % 0.6; Lymphocytes % 32.7; MCH 32.2 pg (27.0-33.0); MCHC 33.5 % (32.0-36.0); MCV 96.1 fL (80-95); MPV 11.1 fL (8.0-11.0); Monocytes % 7.6; Neutrophils % 56.1; Nucleated RBC 0 %; Platelet Count 166 10^3/uL (130-400); RBC 3.63 10^6/uL (3.93-5.22); RDW 12.3 % (11.7-14.6); RDW-SD 42.8 fL; WBC 10.28 10^3/uL (4.4-10.8)
== END 2019-12-17 15:59 ==
LOC: NCHCN 15:39
PROVIDERS: PCP Family Medicine; Visit Provider Family Medicine
DX: F31.5 Bipolar disorder, current episode depressed, severe, with psychotic features (principal); F60.1 Schizoid personality disorder; E11.9 Type 2 diabetes mellitus without complications
CPT/HCPCS: 85025

== ENCOUNTER 2019-12-21 01:02 | Outpatient (CLI) | payer MEDICARE, MEDICAID, SELFPAY ==
--- NOTE | 2019-12-21 12:58 | DI.MAMMO_ITS ---
EXAM: MG MAMMO SCREENING CLINICAL HISTORY: SCREENING, [facility],Z00.00 TECHNIQUE: Bilateral full field digital CC and MLO mammographic images were obtained with 3D tomosyn thesis and utilizing computer aided detection (CAD). COMPARISON: Available for comparison. FINDINGS: Masses/Architectural Distortion: None seen. Microcalcifications: No suspicious pleomorphic-type are seen. Skin Thickening/Nipple Retraction: None. IMPRESSION: 1. No significant interval change with no specific features of malignancy noted. 2. Unless there is more urgent need, screening mammography is recommended, as per [employer] [employer] guidelines. BI-RADS Category 1 - Negative Breast Density - Category B - Scattered areas of fibroglandular density A negative radiographic report should not delay biopsy if a dominant or clinically suspicious mass is present. Up to ten percent of cancers are not identified on mammography. A negative report may reinforce clinical impression. Adenosis and dense breasts may obscure an underlying neoplasm. False positive reports average 6 to 10%. Patient will receive a letter notifying them of these results.
== END 2019-12-21 01:22 ==
PROVIDERS: PCP Family Medicine; Visit Provider Nurse Practitioner Gerontology
DX: Z12.31 Encounter for screening mammogram for malignant neoplasm of breast (principal); Z00.00 Encounter for general adult medical examination without abnormal findings
CPT/HCPCS: 77063; 77067

== ENCOUNTER 2019-12-23 15:06 | Outpatient (REF) | payer MEDICARE, MEDICAID, SELFPAY ==
[2019-12-23 16:46] LABS: Bilirubin Negative (Negative); Blood Trace-intact (Negative); Clarity Clear (Clear); Glucose Negative (Negative); Ketones Negative (Negative); Leukocyte Esterase Trace (Negative); Nitrite Negative (Negative); Specific Gravity 1.015 (1.005-1.025); Urobilinogen 0.2 EU/dL (Up TO 0.2); pH 5.5 (5-8)
[2019-12-23 17:27] LABS: Bacteria Moderate HPF (Negative); C & S Indicated? Yes; Crystals Negative HPF (Negative); Epithelial Cells Few HPF (Negative); Mucus Negative (Negative); RBC 0-2 HPF (0-2)
== END 2019-12-23 15:26 ==
LOC: LBN 15:06
PROVIDERS: PCP Family Medicine; Visit Provider Family Medicine
DX: R68.89 Other general symptoms and signs (principal); R82.998 Other abnormal findings in urine
CPT/HCPCS: 87077; 81003; 81015; 87086; 87186

== ENCOUNTER 2019-12-24 12:58 | Emergency (ER) | payer MEDICARE, MEDICAID, SELFPAY ==
[2019-12-24 13:01] VITALS: BP 122/49; PULSE 66; RESP 17; TEMP 37.1; O2SAT 96
--- NOTE | 2019-12-24 13:20 | ED.GENADUL_ITS ---
Discharge Plan Disposition Patient Disposition: [facility] Condition: Stable Discharge Details Clinical Impression: Pneumonia Primary Care Provider: Mikayla Torres ED Provider: Froilan Logan Campton Meds and New Rx's Prescriptions: Continued omeprazole 20 mg capsule,delayed release(DR/EC) 20 mg PO BID RF: 0 potassium chloride 10 mEq tablet extended release 30 meq PO DAILY RF: 0 buspirone 7.5 mg tablet 7.5 mg PO Q8H PRN PRNRF: 0 benztropine 1 mg tablet 1 mg PO BID RF: 0 divalproex 500 mg tablet,delayed release (DR/EC) 2,000 mg PO .QHS RF: 0 metformin 1,000 mg Tablet 500 mg PO QAM RF: 0 Nicotrol 10 mg Cartridge 1 inh INHALATION 4-6XD PRNRF: 0 ergocalciferol (vitamin D2) [Vitamin D2] 1,250 mcg (50,000 unit) Capsule 50,000 unit PO DIRECTED RF: 0 CertaVite Senior-Antioxidant 0.4-300-250 mg-mcg-mcg Tablet 1 tab PO DAILY RF: 0 atorvastatin 40 mg Tablet 40 mg PO DAILY RF: 0 ipratropium-albuterol 0.5 mg-3 mg(2.5 mg base)/3 mL Solution For Nebulization 3 ml INHALATION BID RF: 0 torsemide 20 mg Tablet 60 mg PO DAILY RF: 0 docusate sodium [Colace] 100 mg Capsule 100 mg PO BID RF: 0 clozapine 50 mg Tablet 100 mg PO QAM RF: 0 ferrous gluconate 324 mg (37.5 mg iron) Tablet 324 mg PO BID RF: 0 Combivent Respimat 20-100 mcg/actuation Mist 1 puff INHALATION QID PRNRF: 0 levothyroxine 175 mcg Tablet 175 mcg PO DAILY RF: 0 polyethylene glycol 3350 17 gram/dose Powder 17 g PO DAILY RF: 0 senna 8.6 mg Capsule 17.2 mg PO .QHS RF: 0 acetaminophen 500 mg Tablet 1,000 mg PO TID RF: 0 insulin aspart U-100 [Novolog Flexpen U-100 Insulin] 100 unit/mL (3 mL) Insulin Pen 1 - 6 unit SUBCUT TID PRNRF: 0 magnesium L-lactate 84 mg Tablet Extended Release 84 mg PO BID RF: 0 clozapine 50 mg Tablet 250 mg PO HS RF: 0 nitrofurantoin macrocrystal 100 mg capsule 100 mg PO BID Qty: 10 RF: 0 budesonide-formoterol [Symbicort] 160-4.5 mcg/actuation Hfa Aerosol Inhaler 2 puff INHALATION BID RF: 0 olanzapine 5 mg Tablet 2.5 mg PO DAILY RF: 0 nitroglycerin 0.4 mg Tablet, Sublingual 1 mg sublingual PRN PRNRF: 0 Discharge Instructions Instructions: Pneumonia (ED) Additional Instructions: Work-up in the ER today reveals a right sided pneumonia. I was able to personally speak with Dr. Prashanth Miller who is aware of the patient's work-up here in the ER. We agreed that we would initiate Levaquin therapy, first dose to be given here and then she will write a prescription to continue treatment tomorrow at the facility. Plenty of fluids to avoid dehydration. Belp-pwv-tks nter medications as directed for symptomatic control. Please watch for new or worsening symptoms and return to the ER for any concerns. Discharge Data Discharge Date/Time-TO BE ENTERED AT DEPARTURE: 12/24/19 15:33 Medical Decision Making 54-year-old female with extensive past medical history presents from the [facility] for evaluation of abdominal pain that began over the past 24-36 hours. Patient is currently taking Macrobid, has had 3 doses thus far. She is rather vague and poor historian. Upon presentation her blood pressure is 122/49, pulse of 66, respirations 17, she is afebrile, O2 sat 96% on room air. She appears well, nontoxic. Given limitations of her history and physical, I will obtain IV access, give IV fluid, obtain laboratory values and obtain CT imaging of abdomen and pelvis with contrast. White blood cell count of 10.60 hemoglobin 10.5 hematocrit 32.5 platelet count 162. Sodium 139 potassium 3.6, dioxide 32.4 anion gap 12.9 creatinine 1.05 with a GFR 54.61. Lipase 85. Urinalysis trace ketones, trace blood, nitrate positive, small leuk esterase, 10-20 white cells, 5-[address] red cells[address] Many epithelials. CT imaging of abdomen and pelvis read by radiology as right lower lobe and middle lobe consolidation most consistent with pneumonia. Small right pleural effusion. Nonobstructing stones left kidney, no evidence of urinary obstruction. Atrophy and scarring of the right kidney. Hepatomegaly and diffuse fatty filtration. Large amount of stool in colon. The right sided lower lobe pneumonia certainly could cause her right upper quadrant discomfort. Patient remained stable while under my care. I was able to speak with the patient's primary care doctor, Dr. Prashanth Miller who is aware of the patient's evaluation, work-up, diagnosis of pneumonia. Patient is afebrile, white count is unremarkable, O2 sats are 95% on room air. We discussed options. She feels that the patient can certainly be trialed as an outpatient with oral antibiotics, I agree with assessment. Given the patient's multiple comorbidities including COPD, will give first dose of 750 of Levaquin p.o. here in the ER and arrange transportation back to their facility. She was able to review the culture and sensitivity of previous urine cultures, previous urine cultures were sensitive to Levaquin as well. Medical Records Medical records reviewed: Yes I reviewed the patient's medical records. Lab Data Lab results reviewed: Yes I reviewed the patient's lab results. Lab results narrative: Laboratory Tests Range/Units 12/24/19 12/24/19 12/24/19 13:20 13:20 13:20 WBC (4.4-10.8) 10^3/uL 10.60 RBC (3.93-5.22) 10^6/uL 3.33 L Hgb (11.2-15.7) g/dL 10.5 L Hct (36.0-46.0) % 32.5 L MCV (80-95) fL 97.6 H MCH (27.0-33.0) pg 31.5 MCHC (32.0-36.0) % 32.3 RDW (11.7-14.6) % 12.0 Plt Count (130-400) 10^3/uL 162 MPV (8.0-11.0) fL 10.2 Immature Gran % 0.5 Neutrophils % 65.8 Lymphocytes % 22.2 Monocytes % 11.1 Eosinophils % 0.0 Basophils % 0.4 Nucleated RBC % % 0 Absolute Neutrophils (1.2-6.7) 10^3/uL 6.98 H Absolute Lymphocytes (1.2-3.4) 10^3/uL 2.35 Absolute Monocytes (0.1-0.8) 10^3/uL 1.18 H Absolute Eosinophils (0.0-0.7) 10^3/uL 0.00 Absolute Basophils (0.0-0.2) 10^3/uL 0.04 Sodium (136-145) mmol/L 139 Potassium (3.5-5.1) mmol/L 3.6 Chloride (98-107) mmol/L 102 Carbon Dioxide (21.0-32.0) mmol/L 32.4 H Anion Gap (3-11) mmol/L 4.6 BUN (7-18) mg/dL 23 H Creatinine (0.55-1.02) mg/dL 1.05 H Estimated GFR/1.73 m2 (mL/min/1.73m2) 54.61 Glucose (74-106) mg/dL 175 H Calcium (8.5-10.1) mg/dL 9.2 Total Bilirubin (0.2-1.0) mg/dL 0.5 AST (15-37) U/L 31 ALT (14-59) U/L 14 Alkaline Phosphatase (46-116) U/L 75 Total Protein (6.4-8.2) g/dL 7.2 Albumin (3.4-5.0) g/dL 2.4 L Lipase (73-393) U/L 85 Urine Color (Yellow) Urine Clarity (Clear) Urine pH (5-8) Ur Specific [place] (1.005-1.025) Urine Protein (Negative) mg/dL Urine Ketones (Negative) mg/dL Urine Blood (Negative) Urine Nitrite (Negative) Urine Bilirubin (Negative) Urine Urobilinogen (Up TO 0.2) EU/dL Ur Leukocyte Esterase (Negative) Urine RBC (0-2) HPF Urine WBC (0-5) HPF Ur Epithelial Cells (Negative) HPF Urine Crystals (Negative) HPF Urine Bacteria (Negative) HPF Urine Casts (Negative) LPF Urine Mucus (Negative) Ur Culture Indicated? Urine Glucose (Negative) mg/dL Range/Units 12/24/19 13:45 WBC (4.4-10.8) 10^3/uL RBC (3.93-5.22) 10^6/uL Hgb (11.2-15.7) g/dL Hct (36.0-46.0) % MCV (80-95) fL MCH (27.0-33.0) pg MCHC (32.0-36.0) % RDW (11.7-14.6) % Plt Count (130-400) 10^3/uL MPV (8.0-11.0) fL Immature Gran % Neutrophils % Lymphocytes % Monocytes % Eosinophils % Basophils % Nucleated RBC % % Absolute Neutrophils (1.2-6.7) 10^3/uL Absolute Lymphocytes (1.2-3.4) 10^3/uL Absolute Monocytes (0.1-0.8) 10^3/uL Absolute Eosinophils (0.0-0.7) 10^3/uL Absolute Basophils (0.0-0.2) 10^3/uL Sodium (136-145) mmol/L Potassium (3.5-5.1) mmol/L Chloride (98-107) mmol/L Carbon Dioxide (21.0-32.0) mmol/L Anion Gap (3-11) mmol/L BUN (7-18) mg/dL Creatinine (0.55-1.02) mg/dL Estimated GFR/1.73 m2 (mL/min/1.73m2) Glucose (74-106) mg/dL Calcium (8.5-10.1) mg/dL Total Bilirubin (0.2-1.0) mg/dL AST (15-37) U/L ALT (14-59) U/L Alkaline Phosphatase (46-116) U/L Total Protein (6.4-8.2) g/dL Albumin (3.4-5.0) g/dL Lipase (73-393) U/L Urine Color (Yellow) Yellow Urine Clarity (Clear) Clear Urine pH (5-8) 7.0 Ur Specific [place] (1.005-1.025) 1.015 Urine Protein (Negative) mg/dL 30 H Urine Ketones (Negative) mg/dL Trace H Urine Blood (Negative) Trace-intact H Urine Nitrite (Negative) Positive H Urine Bilirubin (Negative) Negative Urine Urobilinogen (Up TO 0.2) EU/dL 1.0 H Ur Leukocyte Esterase (Negative) Small H Urine RBC (0-2) HPF 5-10 H Urine WBC (0-5) HPF 10-20 H Ur Epithelial Cells (Negative) HPF Many Urine Crystals (Negative) HPF Negative Urine Bacteria (Negative) HPF Few Urine Casts (Negative) LPF Negative Urine Mucus (Negative) Trace Ur Culture Indicated? No/sq. contamination Urine Glucose (Negative) mg/dL Negative HPI General Mode of arrival: EMS . Date/Time Provider Initiated Documentation: 12/24/19 13:07 . Limitations to Documentation: other (Cognitive impairment) . Information obtained by: patient, EMS and old records reviewed . HPI Narrative: This is a 54-year-old female who resides at the [facility], has a past medical history that includes acute renal injury, alcoholism in remission, bipolar 1 disorder, cognitive impairment, COPD, diabetes, diabetic neuropathy, diastolic dysfunction, GERD, thyroid disease, schizoaffective disorder, secondary Parkinson's disorder, current smoker. She is presenting to the ER today via EMS for evaluation of diffuse abdominal pain worse in the right upper quadrant. She was diagnosed with a UTI 2 days ago, has had 3 doses of Macrobid. Low-grade fever documented yesterday, no fever today. Patient is a rather vague and poor historian, I was able to get history from patient, EMS, the [facility] records, and her primary care provider. Patient denies headache, chest pain, shortness of breath. She reports that she has a smoker's cough which is baseline. She admits to moderate abdominal pain diffusely, worse in the right upper quadrant. Denies nausea, vomiting, diarrhea, constipation, dysuria, hematuria, skin rash. She has not had an antipyretic today Related Data Home Medications Medication Instructions Recorded Confirmed metformin 500 mg PO QAM 10/07/18 12/24/19 budesonide-formoterol [Symbicort] 2 puff INHALATION BID 02/06/19 12/24/19 nitroglycerin 1 mg SUBLINGUAL PRN PRN 02/06/19 12/24/19 olanzapine 2.5 mg PO DAILY 02/06/19 12/24/19 CertaVite Senior-Antioxidant 1 tab PO DAILY 03/04/19 12/24/19 Combivent Respimat 1 puff INHALATION QID PRN 03/04/19 12/24/19 Nicotrol 1 inh INHALATION 4-6XD PRN 03/04/19 12/24/19 atorvastatin 40 mg PO DAILY 03/04/19 12/24/19 clozapine 100 mg PO QAM 03/04/19 12/24/19 docusate sodium [Colace] 100 mg PO BID 03/04/19 12/24/19 ergocalciferol (vitamin D2) 50,000 unit PO DIRECTED 03/04/19 12/24/19 [Vitamin D2] ferrous gluconate 324 mg PO BID 03/04/19 12/24/19 ipratropium-albuterol 3 ml INHALATION BID 03/04/19 12/24/19 levothyroxine 175 mcg PO DAILY 03/04/19 12/24/19 torsemide 60 mg PO DAILY 03/04/19 12/24/19 polyethylene glycol 3350 17 g PO DAILY 04/25/19 12/24/19 senna 17.2 mg PO .QHS 04/25/19 12/24/19 benztropine 1 mg tablet 1 mg PO BID 08/04/19 12/24/19 buspirone 7.5 mg tablet 7.5 mg PO Q8H PRN PRN 08/04/19 12/24/19 divalproex 500 mg tablet,delayed 2,000 mg PO .QHS tab 08/04/19 09/01/19 release omeprazole 20 mg capsule,delayed 20 mg PO BID 08/04/19 12/24/19 release potassium chloride 10 mEq 30 meq PO DAILY tab 08/04/19 12/24/19 tablet,extended release acetaminophen 1,000 mg PO TID 09/01/19 12/24/19 clozapine 250 mg PO HS 09/01/19 12/24/19 insulin aspart U-100 [Novolog 1 - 6 unit SUBCUT TID PRN 09/01/19 12/24/19 Flexpen U-100 Insulin] magnesium L-lactate 84 mg PO BID 09/01/19 12/24/19 nitrofurantoin macrocrystal 100 mg PO BID #10 cap 09/01/19 12/24/19 Previous Rx's Medication Instructions Recorded nitrofurantoin macrocrystal 100 mg PO BID #10 cap 09/01/19 Allergies Allergy/AdvReac Type Severity Reaction Status Date / Time prednisone Allergy Unknown Unverified 12/24/19 13:08 lithium Allergy Unverified 12/24/19 13:08 oxycodone [From OxyContin] Allergy Unverified 12/24/19 13:08 Penicillins Allergy Unverified 12/24/19 13:08 pioglitazone Allergy Unverified 12/24/19 13:08 Sulfa (Sulfonamide Allergy Unverified 12/24/19 13:08 Antibiotics) tramadol Allergy Unverified 12/24/19 13:08 General Stated Complaint: Abd Prob DIONE: 3 Review of Systems Constitutional Constitutional: Denies fatigue, Reports fever(s) and Denies headache(s) Eyes Eyes: Denies eye discharge ENT Ears, Nose, Mouth, and Throat: Denies headache(s), Denies neck pain and Denies sore throat Cardiovascular Cardiovascular: Denies chest pain and Denies dyspnea Respiratory Respiratory: Reports cough and Denies dyspnea Gastrointestinal Gastrointestinal: Reports abdominal pain, Denies hematochezia, Denies diarrhea, Denies nausea and Denies vomiting Genitourinary Genitourinary: Denies dysuria Musculoskeletal Musculoskeletal: Denies neck pain Integumentary/Breasts Skin/Breast: Denies rash Neurologic Neurologic: Denies headache(s) Endocrine Endocrine: Denies fatigue [facility] Medical History Acute kidney injury Alcoholism in remission Bipolar 1 disorder Cognitive impairment COPD (chronic obstructive pulmonary disease) Diabetes mellitus type II, controlled Diabetic neuropathy Diastolic dysfunction Falls frequently GERD (gastroesophageal reflux disease) Heart murmur History of alcohol abuse Hyperthyroidism Hypothyroid Left bundle branch block AVANI (obstructive sleep apnea) Pancreatitis Schizoaffective disorder Secondary Parkinson disease Subdural hematoma small right September 2018 2/2 mechanical fall Tobacco dependence Surgical History H/O abdominal surgery S/P thoracotomy Social History Smoking/Tobacco Use Status: Current every day Tobacco Type: cigarettes Smoking packs per day: 0.5 Smoking cigarettes per day: 10.0 Alcohol Intake: former Drug use: Never Substance use type: does not use Housing: halfway current occupation: Disabled. Lives at [facility] Seatbelt use: always Do you feel safe at home: Yes Do you feel safe in your relationship?: Yes Additional Social history: Resident @ [facility] [employer] Exam Const General: cooperative, comfortable and no acute distress Orientation: alert and awake HENMT Head: normal to inspection, normocephalic and atraumatic Mouth: moist mucous membranes Throat: posterior oropharynx normal Eyes Conjunctivae: conjunctivae normal Sclera: sclerae normal Neck Neck: normal visual inspection, full ROM, no lymphadenopathy, no meningeal signs, trachea midline, supple and nontender Resp Effort & Inspection: normal respiratory effort and able to speak in complete sentences Auscultation: diminished lung sounds bilaterally (Bases) and rales (Scattered, mild, right lower lobe. Mostly clear with coughing) Cardio Rate: regular rate Rhythm: regular rhythm GI Palpation: soft, not firm, no guarding, not rigid and tender (Diffuse mild) with no rebound tenderness Auscultation: normal bowel sounds Back/Spine/Pelvis Back: No back tenderness Skin General skin exam: no rashes or lesions noted Neuro General: patient alert, patient awake, moves all extremities and no focal motor deficits Speech: speech normal Motor: muscle tone normal throughout Sensory Exam: no sensory deficits noted Extrem General: normal to inspection, full ROM, capillary refill normal, no pedal edema and no calf tenderness Psych Appearance: grossly normal Mental Status: mental status grossly normal Course Vital Signs Vital signs: Vital Signs Temperature 37.1 C 12/24/19 13:01 Pulse 66 12/24/19 13:01 Respiratory Rate 17 12/24/19 13:01 Blood Pressure 122/49 L 12/24/19 13:01 Pulse Oximetry 96 12/24/19 13:01 Temperature 37.1 C 12/24/19 13:01 Temperature Source Oral 12/24/19 13:01 Pulse 66 12/24/19 13:01 Respiratory Rate 17 12/24/19 13:01 Respiratory Effort Non-Labored 12/24/19 13:01 Blood Pressure 122/49 L 12/24/19 13:01 Pulse Oximetry 96 12/24/19 13:01 Oxygen Delivery Method Room Air 12/24/19 13:01 Oxygen Flow Rate 0 12/24/19 13:01 Pain Level 5 12/24/19 13:01
[2019-12-24 13:39] LABS: Abs Immature Grans 0.05 10^3/uL (0.0-0.06); Absolute Basophil Count 0.04 10^3/uL (0.0-0.2); Absolute Lymphocyte Count 2.35 10^3/uL (1.2-3.4); Absolute Monocyte Count 1.18 10^3/uL (0.1-0.8); Absolute Neutrophil Count 6.98 10^3/uL (1.2-6.7); Basophils % 0.4; HCT 32.5 % (36.0-46.0); HGB 10.5 g/dL (11.2-15.7); Immature Grans % 0.5; Lymphocytes % 22.2; MCH 31.5 pg (27.0-33.0); MCHC 32.3 % (32.0-36.0); MCV 97.6 fL (80-95); MPV 10.2 fL (8.0-11.0); Monocytes % 11.1; Neutrophils % 65.8; Nucleated RBC 0 %; Platelet Count 162 10^3/uL (130-400); RBC 3.33 10^6/uL (3.93-5.22); RDW-SD 43.3 fL
[2019-12-24] MEDS: Normal Saline 1,000 ML 1000 ML IV (13:46)
[2019-12-24 13:50] LABS: Lipase 85 U/L (73-393)
[2019-12-24 13:51] LABS: Bilirubin Negative (Negative); Blood Trace-intact (Negative); Clarity Clear (Clear); Glucose Negative (Negative); Ketones Trace mg/dL (Negative); Leukocyte Esterase Small (Negative); Nitrite Positive (Negative); Specific Gravity 1.015 (1.005-1.025)
[2019-12-24 13:53] LABS: ALT 14 U/L (14-59); AST 31 U/L (15-37); Albumin 2.4 g/dL (3.4-5.0); Alkaline Phosphatase 75 U/L (46-116); Anion Gap 4.6 mmol/L (3-11); BUN 23 mg/dL (7-18); Bilirubin, Total 0.5 mg/dL (0.2-1.0); CO2 32.4 mmol/L (21.0-32.0); CREATININE 1.05 mg/dL (0.55-1.02); Calcium 9.2 mg/dL (8.5-10.1); Chloride 102 mmol/L (98-107); Estimated GFR 54.61 (mL/min/1.73m2); Glucose 175 mg/dL (74-106); Potassium 3.6 mmol/L (3.5-5.1); Sodium 139 mmol/L (136-145); Total Protein 7.2 g/dL (6.4-8.2)
[2019-12-24 13:57] LABS: Bacteria Few HPF (Negative); C & S Indicated? No/Sq. Contamination; Casts Negative LPF (Negative); Crystals Negative HPF (Negative); Epithelial Cells Many HPF (Negative); Mucus Trace (Negative)
--- NOTE | 2019-12-24 14:11 | DI.CT_ITS ---
EXAM: CT ABDOMEN PELVIS W CLINICAL HISTORY: pain, recent uti TECHNIQUE: Imaging Protocol: Axial computed tomography images with coronal and sagittal reformatted images were created and reviewed CONTRAST MATERIAL: Intravenous: Omnipaque 350 Contrast volume:100 mL Oral: No COMPARISON: CT CT THORACIC LUMBAR SPINE REC from 02/06/[address] CHEST/ABD/PEL WO from 02/06/[address] CHEST/ABD/PEL WO from 02/06/2019 FINDINGS: The examination is limited due to patient motion artifact. ABDOMEN: Lung Bases: There is a small right pleural effusion. There is an infiltrate seen in the right middle lobe and the right lower lobe. Liver: There is diffuse decreased attenuation of the liver consistent with fatty infiltration. No me asurable mass. Hepatomegaly. Portal, Superior Mesenteric, and Splenic Veins: Unremarkable. Gallbladder and Biliary Tract: No radiodense calculus or dilation. Pancreas: Normal density. No abnormal calcification. Mild inflammatory stranding seen at the tail o f the pancreas. There is a 1 cm round hypodense lesion in the tail of the pancreas. This can be see n on the CT scan of the abdomen and pelvis from 02/06/2019. Spleen: Normal. Adrenals: Stable left adrenal nodularity. Unremarkable right adrenal gland. Kidneys: Stable atrophy of the right kidney. Nonobstructing stone in the left kidney. No masses see n. Abdominal Aorta: Abdominal portion non-dilated. Atherosclerosis. Bowel: No obstruction or bowel wall thickening. No evidence of acute appendicitis. Large amount of s tool throughout the colon. Peritoneal Cavity: No ascites, collection or mesenteric inflammatory response. Lymph Nodes: Within normal limits. Bones: Degenerative changes in the spine. L5 spondylolysis. No significant spondylolisthesis. Soft Tissues: Small fat containing anterior abdominal wall hernia. PELVIS: Bladder: The urinary bladder is incompletely distended. There does appear to be some thickening of t he wall of the urinary delete bladder. Reproductive Organs: Unremarkable as visualized. Lymph Nodes: Within normal limits. Bones: Please see above. IMPRESSION: 1. Right middle and lower lobe consolidations suggestive of pneumonia. Small right pleural effusion. 2. Left nephrolithiasis. No evidence of hydronephrosis. 3. Right renal scarring and atrophy. 4. Hepatomegaly and fatty infiltration. 5. Large amount of retained stool in the colon. RADIATION DOSE DELIVERED: 859.66mGy.cm Total DLP DATA REPOSITORY: All CT scans at this facility are submitted to the National Radiology Data Registry (NRDR) Dose Index Registry (DIR) with the [employer] (ACR). RADIATION OPTIMIZATION: All CT scans at this facility use at least one of these dose optimization te chniques: automated exposure control; mA and/or kV adjustment per patient size (includes targeted exa ms where dose is matched to clinical indication); or iterative reconstruction.
[2019-12-24] MEDS: Omnipaque 350 MG/ML 100 ML BTL IJ (14:22)
[2019-12-24] MEDS: Normal Saline - Diluent 50 ML VIAL IV (14:22)
[2019-12-24 14:33] VITALS: BP 133/56; PULSE 65; RESP 22; TEMP 36.6; O2SAT 95
--- NOTE | 2019-12-24 14:41 | DI.VRAD_ITS ---
PROCEDURE INFORMATION: Exam: CT Abdomen And Pelvis With Contrast Exam date and time: 12/24/2019 2:12 PM Age: 54 years old Clinical indication: Abdominal pain; Generalized; Patient HX: Abdomen pain, recent UTI TECHNIQUE: Imaging protocol: Computed tomography of the abdomen and pelvis with intravenous contrast. Radiation optimization: All CT scans at this facility use at least one of these dose optimization techniques: automated exposure control; mA and/or kV adjustment per patient size (includes targeted exams where dose is matched to clinical indication); or iterative reconstruction. Contrast material: OMNI-PAQUE 350; Contrast volume: 100 ml; Contrast route: INTRAVENOUS (IV); COMPARISON: CT CHEST/ABD/PEL WO 02/06/2019 2:55 PM FINDINGS: Pleural space: New small right pleural effusion. New areas of consolidation and volume loss in right lower lobe posteromedially and in right middle. The right middle lobe consolidation involves an area measuring approximately 7 cm by 3 cm by 3.7 cm in transverse, AP, craniocaudad dimension. Both of these areas have an appearance most consistent with pneumonia. The left lung base appears normal. Liver: Markedly fatty liver. Hepatomegaly. Gallbladder and bile ducts: Normal. No calcified stones. No ductal dilation. Pancreas: Stable benign appearing 8 mm cyst in the tail of the pancreas. Spleen: Normal. No splenomegaly. Adrenals: Normal. No mass. Kidneys and ureters: Atrophy and scarring of the right kidney. Nonobstructing stone upper pole left kidney measuring approximately 6 mm by 2 mm. Rounded, proximally 2 mm nonobstructing stone in the mid left kidney. No evidence urinary obstruction. Stomach and bowel: Large amount of stool in the colon. Motion artifact obscures visualization loops of bowel in the mid and lower abdomen. Appendix: No evidence of appendicitis. Intraperitoneal space: Unremarkable. No free air. No significant fluid collection. Vasculature: Diffuse vascular calcifications, including pelvic phleboliths. Coronary artery calcifications. Lymph nodes: Unremarkable. No enlarged lymph nodes. Urinary bladder: Unremarkable as visualized. Reproductive: Unremarkable as visualized. Bones/joints: Bilateral L5 spondylolysis without spondylolisthesis. Degenerative arthritis lower lumbar facets. Soft tissues: Unremarkable. IMPRESSION: 1. Right lower lobe and middle lobe consolidation most consistent with pneumonia. Small right pleural effusion. 2. Nonobstructing stones left kidney. No evidence of urinary obstruction. 3. Atrophy and scarring of the right kidney. 4. Hepatomegaly and diffuse fatty infiltration. 5. Large amount of stool in the colon. Dictated and Authenticated by: Ani Odom MD. Ordering:GEORGE Mcgovern MD
[2019-12-24] MEDS: levoFLOXacin 500 MG, levoFLOXacin 250 MG 750 MG PO (14:56)
[2019-12-24 15:02] VITALS: BP 141/56; PULSE 68; RESP 22; TEMP 36.4; O2SAT 97
--- NOTE | 2019-12-24 15:03 | NUR.NOTE ---
Nursing Note: Gave report to Benedicto PENG @ [facility] at 1501. All questions answered and he states there is no one to filler picker pt. Pt able to ride in private care. RCT initiated.
== END 2019-12-24 15:33 | disposition designated cancer center or children's hospital (05) ==
PROVIDERS: Emergency Provider Physician Assistant; PCP Family Medicine
DX: R50.9 Fever, unspecified (principal); J18.9 Pneumonia, unspecified organism; R10.11 Right upper quadrant pain; G21.9 Secondary parkinsonism, unspecified; E11.9 Type 2 diabetes mellitus without complications; Z79.4 Long term (current) use of insulin; J44.9 Chronic obstructive pulmonary disease, unspecified; F17.210 Nicotine dependence, cigarettes, uncomplicated
CPT/HCPCS: 36415; 80053; 81025; 83690; 96360; 99285; 74177; 81003; 81015; 85025; J3490

== ENCOUNTER 2020-01-04 22:46 | Outpatient (REF) | payer MEDICARE, MEDICAID, SELFPAY ==
[2020-01-04 23:14] LABS: Bilirubin Negative (Negative); Blood Negative (Negative); Clarity Clear (Clear); Glucose Negative (Negative); Ketones Negative (Negative); Leukocyte Esterase Negative (Negative); Nitrite Negative (Negative); Specific Gravity 1.015 (1.005-1.025); Urobilinogen 0.2 EU/dL (Up TO 0.2); pH 5.5 (5-8)
== END 2020-01-04 23:06 ==
LOC: LBN 22:46
PROVIDERS: PCP Family Medicine; Visit Provider Nurse Practitioner Gerontology
DX: N39.0 Urinary tract infection, site not specified (principal)
CPT/HCPCS: 81003; 87086

== ENCOUNTER 2020-01-13 02:57 | Outpatient (CLI) | payer MEDICARE, MEDICAID, SELFPAY ==
[2020-01-13 11:48] LABS: Abs Immature Grans 0.04 10^3/uL (0.0-0.06); Absolute Basophil Count 0.09 10^3/uL (0.0-0.2); Basophils % 0.8; HCT 31.8 % (36.0-46.0); HGB 10.2 g/dL (11.2-15.7); Immature Grans % 0.4; MCH 31.7 pg (27.0-33.0); MCHC 32.1 % (32.0-36.0); MCV 98.8 fL (80-95); MPV 11.5 fL (8.0-11.0); Monocytes % 11.7; Neutrophils % 62.1; Nucleated RBC 0 %; Platelet Count 140 10^3/uL (130-400); RBC 3.22 10^6/uL (3.93-5.22); RDW 13.6 % (11.7-14.6); RDW-SD 49.3 fL
[2020-01-13 11:51] LABS: Absolute Lymphocyte Count 2.78 10^3/uL (1.2-3.4); Absolute Neutrophil Count 6.89 10^3/uL (1.2-6.7)
[2020-01-13 12:13] LABS: ALT 18 U/L (14-59); AST 27 U/L (15-37); Albumin 2.4 g/dL (3.4-5.0); Alkaline Phosphatase 64 U/L (46-116); Anion Gap 5.4 mmol/L (3-11); BUN 11 mg/dL (7-18); Bilirubin, Total 0.3 mg/dL (0.2-1.0); CO2 33.6 mmol/L (21.0-32.0); CREATININE 0.94 mg/dL (0.55-1.02); Calcium 8.3 mg/dL (8.5-10.1); Chloride 104 mmol/L (98-107); Glucose 152 mg/dL (74-106); Potassium 3.8 mmol/L (3.5-5.1); Sodium 143 mmol/L (136-145); Total Protein 5.9 g/dL (6.4-8.2)
== END 2020-01-13 03:17 ==
PROVIDERS: PCP Family Medicine; Visit Provider Family Medicine
DX: F31.5 Bipolar disorder, current episode depressed, severe, with psychotic features (principal); F60.1 Schizoid personality disorder; Z79.899 Other long term (current) drug therapy
CPT/HCPCS: 80053; 85025

== ENCOUNTER 2020-01-13 13:59 | Outpatient (CLI) | payer MEDICARE, MEDICAID, SELFPAY ==
--- NOTE | 2020-01-13 13:30 | DI.RAD_ITS ---
EXAM: XR CHEST 2V PA LATERAL CLINICAL HISTORY: F/U CT SCAN FOR RESOLUTION OF PNEUMONIA AND RT PLEURAL EFFUSION TECHNIQUE: 2D digital imaging was performed. COMPARISON: CR,XR XR CHEST 2V PA LATERAL from 04/25/[address] ABDOMEN PELVIS W from 12/24/2019 FINDINGS: MEDIASTINUM: Normal. HEART: Normal. PULMONARY VASCULATURE: Normal. LUNGS: Clear. The previously noted right pleural effusion and right basilar infiltrate have resolved . PLEURAL SPACE: No pleural effusion or pneumothorax. BONE:Within normal limits for the patient's age. OTHER FINDINGS:Normal. IMPRESSION: No acute pulmonary findings. DATA REPOSITORY: RADIATION DOSE DELIVERED:
== END 2020-01-13 14:19 ==
PROVIDERS: PCP Family Medicine; Visit Provider Family Medicine
DX: Z87.09 Personal history of other diseases of the respiratory system (principal)
CPT/HCPCS: 80053; 71046; 85025

== ENCOUNTER 2020-01-30 18:01 | Outpatient (REF) | payer MEDICARE, MEDICAID, SELFPAY ==
[2020-01-30 19:00] LABS: Bilirubin Negative (Negative); Blood Trace-lysed (Negative); Clarity Cloudy (Clear); Glucose Negative (Negative); Ketones Negative (Negative); Leukocyte Esterase Large (Negative); Nitrite Positive (Negative); Specific Gravity 1.015 (1.005-1.025)
[2020-01-30 19:08] LABS: WBC >50 HPF (0-5)
[2020-01-30 19:09] LABS: Bacteria Packed HPF (Negative); C & S Indicated? C&S Done As Ordered; Epithelial Cells Few HPF (Negative)
== END 2020-01-30 18:21 ==
LOC: NCHCN 18:01
PROVIDERS: PCP Family Medicine; Visit Provider Family Medicine
DX: R30.0 Dysuria (principal)
CPT/HCPCS: 87077; 81003; 81015; 87086; 87186

== ENCOUNTER 2020-02-01 08:53 | Outpatient (REF) | payer MEDICARE, MEDICAID, SELFPAY ==
[2020-02-01 09:22] LABS: Abs Immature Grans 0.49 10^3/uL (0.0-0.06); HCT 29.1 % (36.0-46.0); HGB 9.6 g/dL (11.2-15.7); MCH 32.1 pg (27.0-33.0); MCV 97.3 fL (80-95); MPV 10.6 fL (8.0-11.0); Nucleated RBC 0 %; Platelet Count 461 10^3/uL (130-400); RBC 2.99 10^6/uL (3.93-5.22); RDW 13.9 % (11.7-14.6); RDW-SD 49.2 fL; WBC 16.06 10^3/uL (4.4-10.8)
[2020-02-01 10:22] LABS: Absolute Lymphocyte Count 3.05 10^3/uL (1.2-3.4); Absolute Neutrophil Count 11.24 10^3/uL (1.2-6.7); Bands % 14
[2020-02-01 10:23] LABS: Absolute Monocyte Count 1.28 10^3/uL (0.1-0.8)
[2020-02-01 10:24] LABS: Myelocytes % 3
[2020-02-01 10:25] LABS: Diff Comment Manual Differential; Polychromasia Present
[2020-02-01 10:27] LABS: ALT 59 U/L (14-59); AST 111 U/L (15-37); Albumin 1.8 g/dL (3.4-5.0); Alkaline Phosphatase 128 U/L (46-116); Anion Gap 9.6 mmol/L (3-11); BUN 28 mg/dL (7-18); Bilirubin, Total 0.7 mg/dL (0.2-1.0); CO2 27.4 mmol/L (21.0-32.0); CREATININE 0.99 mg/dL (0.55-1.02); Calcium 8.7 mg/dL (8.5-10.1); Chloride 101 mmol/L (98-107); Estimated GFR 58.45 (mL/min/1.73m2); Glucose 118 mg/dL (74-106); NT-proBNP 2592 pg/mL (<300); Potassium 3.9 mmol/L (3.5-5.1); Sodium 138 mmol/L (136-145); Total Protein 7.1 g/dL (6.4-8.2)
== END 2020-02-01 09:13 ==
LOC: LBN 08:53
PROVIDERS: PCP Family Medicine; Visit Provider Family Medicine
DX: N30.01 Acute cystitis with hematuria (principal); F31.5 Bipolar disorder, current episode depressed, severe, with psychotic features; E08.59 Diabetes mellitus due to underlying condition with other circulatory complications; I50.9 Heart failure, unspecified; F60.1 Schizoid personality disorder; M62.81 Muscle weakness (generalized)
CPT/HCPCS: 80053; 83880; 85025

== ENCOUNTER 2020-02-01 13:09 | Emergency (ER) | payer MEDICARE, MEDICAID, SELFPAY ==
[2020-02-01] VITALS (43 sets, daily range): BP systolic 87–140; BP diastolic 54–96; PULSE 59–159; RESP 17–34; TEMP 36.3; O2SAT 87–100
--- NOTE | 2020-02-01 13:15 | RT.EKG_ITS ---
APPROVED REPORT Exam: Resting ECG Patient Location: E HR:75 bpm ECG Measurements Heart Rate 75 AXIS MI 90 P 48 QRSd 161 QRS 6 QT 454 T 94 QTc 506 Conclusion Sinus rhythm...normal P axis, V-rate 60- 99 Left bundle branch block...QRSd>120, broad/notched R ST elevation secondary to IVCD...Multiple VCG criteria. No change from previous. I have reviewed and interpreted ECG and agree with software generated interpretation.
--- NOTE | 2020-02-01 13:33 | W.ED.GENAD ---
Discharge Plan Disposition Patient Disposition: HOME Condition: Stable Discharge Details Clinical Impression: UTI (urinary tract infection), Pneumonia, Vomiting Primary Care Provider: Mikayla Torres ED Provider: Kayla Bedolla [place] Meds and New Rx's Prescriptions: New levofloxacin 750 mg tablet 750 mg PO DAILY 4 Days Qty: 4 RF: 0 prochlorperazine maleate [Compazine] 10 mg tablet 10 mg PO TID PRN (Reason: nausea and vomiting) Qty: 7 RF: 0 Continued omeprazole 20 mg capsule,delayed release(DR/EC) 20 mg PO BID RF: 0 potassium chloride 10 mEq tablet extended release 30 meq PO DAILY RF: 0 benztropine 1 mg tablet 1 mg PO BID RF: 0 divalproex 500 mg tablet,delayed release (DR/EC) 2,000 mg PO .QHS RF: 0 metformin 1,000 mg Tablet 500 mg PO QAM RF: 0 Nicotrol 10 mg Cartridge 1 inh INHALATION 4-6XD PRNRF: 0 ergocalciferol (vitamin D2) [Vitamin D2] 1,250 mcg (50,000 unit) Capsule 50,000 unit PO DIRECTED RF: 0 CertaVite Senior-Antioxidant 0.4-300-250 mg-mcg-mcg Tablet 1 tab PO DAILY RF: 0 atorvastatin 40 mg Tablet 40 mg PO DAILY RF: 0 torsemide 20 mg Tablet 60 mg PO DAILY RF: 0 clozapine 50 mg Tablet 100 mg PO QAM RF: 0 ferrous gluconate 324 mg (37.5 mg iron) Tablet 324 mg PO BID RF: 0 Combivent Respimat 20-100 mcg/actuation Mist 1 puff INHALATION QID PRNRF: 0 levothyroxine 175 mcg Tablet 175 mcg PO DAILY RF: 0 polyethylene glycol 3350 17 gram/dose Powder 17 g PO DAILY RF: 0 senna 8.6 mg Capsule 17.2 mg PO .QHS RF: 0 insulin aspart U-100 [Novolog Flexpen U-100 Insulin] 100 unit/mL (3 mL) Insulin Pen 1 - 6 unit SUBCUT TID PRNRF: 0 clozapine 50 mg Tablet 250 mg PO HS RF: 0 acetaminophen [Tylenol] 325 mg Tablet 650 mg BID RF: 0 white petrolatum-mineral oil Ointment See Rx Instructions .ROUTE .COMPLEX RF: 0 magnesium chloride 64 mg Tablet,Delayed Release (Dr/Ec) 128 mg PO BID RF: 0 budesonide-formoterol [Symbicort] 160-4.5 mcg/actuation Hfa Aerosol Inhaler 2 puff INHALATION BID RF: 0 nitroglycerin 0.4 mg Tablet, Sublingual 1 mg sublingual PRN PRNRF: 0 Discharge Instructions Instructions: Urinary Tract Infection in Women (ED), Acute Nausea and Vomiting (ED), Pneumonia (ED) Additional Instructions: Drink plenty of fluids and get plenty of rest. Take the Compazine as needed directed for nausea and vomiting. Take the antibiotics as directed until finished. Follow-up with your primary care doctor in 1 week. Return to the emergency department with any worsening or new concerning symptoms. Discharge Data Discharge Date/Time-TO BE ENTERED AT DEPARTURE: 02/01/20 18:38 Discharge Physician: Kayla Bedolla Medical Decision Making <Kayla Bedolla DO - Last Filed: 02/01/20 21:59> 1320 -- 54-year-old female with a history of COPD, diabetes, GERD, hypothyroidism, schizoaffective disorder, Parkinson's disease presents from the [facility] for vomiting and cough. EKG notes a rate of 75, sinus, left bundle branch block and no acute change from previous. Patient is oriented x3. She states she vomited once today. Her vitals are within normal limits. She appears nontoxic. Abdomen soft and nontender. Differential diagnosis includes UTI, pneumonia, dehydration, electrolyte abnormality, URI. Will place an IV, bolus IV fluids, screening labs, urinalysis, CT abdomen and pelvis and give Compazine and reassess. 1730 -- Labs reviewed. White blood cell count 17. 18 bands. Troponin negative. Urinalysis notes UTI. CT chest notes possible right lower lobe pneumonia. CT abdomen pelvis notes findings consistent with gastritis and cystitis. Patient able to ambulate here with some assistance and has remained hemodynamically stable. No episodes of vomiting and she was able to tolerate p.o. here. Considering patient's allergies and medication reactions, will treat with Levaquin. An IV dose was given here as well as dose for home and prescription. We will also send with Compazine. Advised to follow up with the primary care doctor for re-evaluation. Usual and customary return precautions given prior to discharge. Medical Records Medical records reviewed: Yes I reviewed the patient's medical records. Imaging Data Radiologic Study: Radiologist's impression: CT Chest With Contrast; Diagnostic Exam date and time: 02/01/2020 4:27 PM Age: 54 years old Clinical indication: Cough and shortness of breath; Other: Cough, vomitting, TECHNIQUE: Imaging protocol: Diagnostic computed tomography of the chest with intravenous contrast. 3D rendering (Not supervised by radiologist): MIP and/or 3D reconstructed images were created by the technologist. COMPARISON: CT abdomen and pelvis dated 12/24/2019, CT CHEST/ABD/PEL WO 02/06/2019 2:55 PM FINDINGS: Lungs: The prior airspace opacities within the medial segment of the right middle lobe and medial base of the right lower lobe on exam dated 12/24/2019 have resolved. There are regions of subsegmental atelectasis within the left upper lobe, left lower lobe and right lower lobe. There are regions of mucous plugging within the posteromedial basilar segmental left lower lobe bronchus as well as within multiple basilar segmental right lower lobe bronchi, new since 12/24/2019. There is new focal airspace opacity within the posterior base of the right lower lobe on image 416, series 5 measuring 1.0 x 2.5 cm, which could represent atelectasis but cannot exclude focal pneumonia on this exam. Pleural space: The tiny right pleural effusion on exam dated 12/24/2019 has resolved. No layering pleural effusions are identified. There is no pneumothorax. Heart: Heart size is near the upper limits of normal. There is no bowing of the interventricular septum or disproportionate enlargement of the right heart. There is no pericardial effusion. Mediastinal space: There is no hiatal hernia. Pulmonary arteries: No central filling defects within the pulmonary arteries are identified to suggest pulmonary embolism, although evaluation is limited by motion artifact. The central pulmonary arteries are not dilated. Aorta: No thoracic aortic aneurysm is identified. There is no evidence for aortic dissection. Lymph nodes: There is no thoracic adenopathy. Bones/joints: Multilevel [id number] degenerative disc disease throughout the thoracic spine. No acute fracture. Soft tissues: Unremarkable. IMPRESSION: 1. No pulmonary embolism identified. 2. New regions of mucous plugging within the lung bases suggesting bronchitis. There is a new small airspace opacity within the posterior base of the right lower lobe which could represent focal pneumonia. Recommend clinical correlation and follow-up. CT Abdomen And Pelvis With Contrast Exam date and time: 02/01/2020 4:27 PM Age: 54 years old Clinical indication: Cough and shortness of breath; Other: Cough, vomitting, TECHNIQUE: Imaging protocol: Computed tomography of the abdomen and pelvis with intravenous contrast. 3D rendering (Not supervised by radiologist): MIP and/or 3D reconstructed images were created by the technologist. COMPARISON: CT CHEST/ABD/PEL WO 02/06/2019 2:55 PM FINDINGS: Liver: Normal. No mass. Gallbladder and bile ducts: Normal. No calcified stones. No ductal dilation. Pancreas: Normal. No ductal dilation. Spleen: Normal. No splenomegaly. Adrenal glands: Normal. No mass. Kidneys and ureters: Again noted is a 2 mm nonobstructing left upper pole renal stone. There are no ureteral stones. There is no hydronephrosis or hydroureter. Again noted are regions of marked cortical thinning involving the right kidney, consistent with scarring. Stomach and bowel: Around image 312, series 11, there may be mild wall thickening and mucosal hyperenhancement of the distal gastric antrum and gastric pylorus, which could represent mild gastritis in this region. There is no other evidence of bowel inflammation. There is no evidence for bowel obstruction. Appendix: No evidence of appendicitis. Intraperitoneal space: Unremarkable. No free air. No significant fluid collection. Vasculature: Again noted is a retroaortic left renal vein, normal variant. There is moderate to severe atherosclerotic calcification of the lower abdominal aorta and common iliac arteries, as on prior study, without aneurysm formation. Lymph nodes: Unremarkable. No enlarged lymph nodes. Urinary bladder: The bladder is collapsed and is not well evaluated. There may be some degree of diffuse bladder wall thickening with mucosal hyperenhancement. Recommend clinical correlation for cystitis. Reproductive: Unremarkable as visualized. Bones/joints: Unremarkable. No acute fracture. No dislocation. Soft tissues: Unremarkable. IMPRESSION: 1. Possible mild gastritis involving the distal gastric antrum and pylorus. Recommend clinical correlation. 2. Punctate nonobstructing left renal stone, as on prior study. 3. Cannot exclude mild diffuse bladder wall thickening which can be seen in setting of cystitis. Recommend clinical correlation. Lab Data Lab results reviewed: Yes I reviewed the patient's lab results. Labs: 02/01/20 13:35 Urine - Reflex from Ua Urine Culture - Pending Laboratory Tests Range/Units 02/01/20 02/01/20 02/01/20 13:00 13:30 13:30 WBC (4.4-10.8) 10^3/uL 17.34 H RBC (3.93-5.22) 10^6/uL 3.29 L Hgb (11.2-15.7) g/dL 10.3 L Hct (36.0-46.0) % 32.0 L MCV (80-95) fL 97.3 H MCH (27.0-33.0) pg 31.3 MCHC (32.0-36.0) % 32.2 RDW (11.7-14.6) % 13.8 Plt Count (130-400) 10^3/uL 507 H MPV (8.0-11.0) fL 9.7 Immature Gran % See Differential Neutrophils % 60.0 Band Neutrophils % 18 Lymphocytes % 12.0 Monocytes % 7.0 Eosinophils % 0.0 Basophils % 0.0 Metamyelocytes % 2 Myelocytes % 1 Nucleated RBC % % 0 Absolute Neutrophils (1.2-6.7) 10^3/uL 13.53 H Absolute Lymphocytes (1.2-3.4) 10^3/uL 2.08 Absolute Monocytes (0.1-0.8) 10^3/uL 1.21 H Absolute Eosinophils (0.0-0.7) 10^3/uL 0.00 Absolute Basophils (0.0-0.2) 10^3/uL 0.00 RBC Morphology See below Polychromasia Present PT (9.3-11.0) sec INR (0.9-1.1) APTT (21.0-27.5) sec Sodium (136-145) mmol/L 134 L Potassium (3.5-5.1) mmol/L 3.4 L Chloride (98-107) mmol/L 98 Carbon Dioxide (21.0-32.0) mmol/L 26.1 Anion Gap (3-11) mmol/L 9.9 BUN (7-18) mg/dL 28 H Creatinine (0.55-1.02) mg/dL 1.23 H Estimated GFR/1.73 m2 (mL/min/1.73m2) 45.50 Glucose (74-106) mg/dL 208 H D Calcium (8.5-10.1) mg/dL 9.3 Magnesium (1.8-2.4) mg/dL 1.9 Total Bilirubin (0.2-1.0) mg/dL 0.8 AST (15-37) U/L 104 H ALT (14-59) U/L 55 Alkaline Phosphatase (46-116) U/L 142 H Troponin I (<0.06) ng/mL < 0.05 Total Protein (6.4-8.2) g/dL 8.7 H Albumin (3.4-5.0) g/dL 2.0 L Urine Color (Yellow) Urine Clarity (Clear) Urine pH (5-8) Ur Specific [place] (1.005-1.025) Urine Protein (Negative) mg/dL Urine Ketones (Negative) mg/dL Urine Blood (Negative) Urine Nitrite (Negative) Urine Bilirubin (Negative) Urine Urobilinogen (Up TO 0.2) EU/dL Ur Leukocyte Esterase (Negative) Urine RBC Urine WBC (0-5) HPF Ur Epithelial Cells Urine Crystals Urine Bacteria (Negative) HPF Urine Mucus Ur Culture Indicated? Urine Glucose (Negative) mg/dL Total Valproic Acid (50-100) ug/mL 78.9 Range/Units 02/01/20 02/01/20 13:30 13:35 WBC (4.4-10.8) 10^3/uL RBC (3.93-5.22) 10^6/uL Hgb (11.2-15.7) g/dL Hct (36.0-46.0) % MCV (80-95) fL MCH (27.0-33.0) pg MCHC (32.0-36.0) % RDW (11.7-14.6) % Plt Count (130-400) 10^3/uL MPV (8.0-11.0) fL Immature Gran % Neutrophils % Band Neutrophils % Lymphocytes % Monocytes % Eosinophils % Basophils % Metamyelocytes % Myelocytes % Nucleated RBC % % Absolute Neutrophils (1.2-6.7) 10^3/uL Absolute Lymphocytes (1.2-3.4) 10^3/uL Absolute Monocytes (0.1-0.8) 10^3/uL Absolute Eosinophils (0.0-0.7) 10^3/uL Absolute Basophils (0.0-0.2) 10^3/uL RBC Morphology Polychromasia PT (9.3-11.0) sec 11.9 H INR (0.9-1.1) 1.2 H APTT (21.0-27.5) sec 25.9 Sodium (136-145) mmol/L Potassium (3.5-5.1) mmol/L Chloride (98-107) mmol/L Carbon Dioxide (21.0-32.0) mmol/L Anion Gap (3-11) mmol/L BUN (7-18) mg/dL Creatinine (0.55-1.02) mg/dL Estimated GFR/1.73 m2 (mL/min/1.73m2) Glucose (74-106) mg/dL Calcium (8.5-10.1) mg/dL Magnesium (1.8-2.4) mg/dL Total Bilirubin (0.2-1.0) mg/dL AST (15-37) U/L ALT (14-59) U/L Alkaline Phosphatase (46-116) U/L Troponin I (<0.06) ng/mL Total Protein (6.4-8.2) g/dL Albumin (3.4-5.0) g/dL Urine Color (Yellow) Yellow Urine Clarity (Clear) Cloudy Urine pH (5-8) 6.0 Ur Specific [place] (1.005-1.025) 1.020 Urine Protein (Negative) mg/dL 30 H Urine Ketones (Negative) mg/dL Negative Urine Blood (Negative) Trace-lysed H Urine Nitrite (Negative) Positive H Urine Bilirubin (Negative) Small H Urine Urobilinogen (Up TO 0.2) EU/dL 4.0 H Ur Leukocyte Esterase (Negative) Moderate H Urine RBC Not Applicable Urine WBC (0-5) HPF >50 H Ur Epithelial Cells Not Applicable Urine Crystals Not Applicable Urine Bacteria (Negative) HPF Many Urine Mucus Not Applicable Ur Culture Indicated? Yes Urine Glucose (Negative) mg/dL Negative Total Valproic Acid (50-100) ug/mL ECG Data Attestation: I personally reviewed and interpreted this ECG (s) as follows: Interpretation: Rate of 75, sinus, left bundle branch block. No change from previous EKG. MO 90. QRS 161. QTc 506. <BOBBY Tirado - Last Filed: 02/02/20 16:11> Addendum: CT was over read today by Dr. Verduzco today. He called and advised that a cystic neoplasm was missed on the patients pancreas yesterday. He advised prompt outpatient MRI. I called the [facility] and relayed this information. They will have provider order MRI tomorrow. I also asked care management to follow up on this to ensure this order is completed tomorrow. HPI <Kayla Bedolla, - Last Filed: 02/01/20 21:59> General Mode of arrival: EMS. Date/Time Provider Initiated Documentation: 02/01/20 13:18. Limitations to Documentation: no limitations. Information obtained by: patient. HPI Narrative: Patient is a 54-year-old with a history of COPD, diabetes, GERD, hypothyroidism, schizoaffective disorder, Parkinson's disease, frequent falls who presents from the [facility] for vomiting and cough today. Fasting blood sugar per EMS 288. Patient states she vomited once today which was clear. She denies any headache, chest pain, shortness of breath, abdominal pain. Related Data Home Medications Medication Instructions Recorded Confirmed metformin 500 mg PO QAM 10/07/18 02/01/20 budesonide-formoterol [Symbicort] 2 puff INHALATION BID 02/06/19 02/01/20 nitroglycerin 1 mg SUBLINGUAL PRN PRN 02/06/19 02/01/20 CertaVite Senior-Antioxidant 1 tab PO DAILY 03/04/19 02/01/20 Combivent Respimat 1 puff INHALATION QID PRN 03/04/19 02/01/20 Nicotrol 1 inh INHALATION 4-6XD PRN 03/04/19 02/01/20 atorvastatin 40 mg PO DAILY 03/04/19 02/01/20 clozapine 100 mg PO QAM 03/04/19 02/01/20 ergocalciferol (vitamin D2) 50,000 unit PO DIRECTED 03/04/19 02/01/20 [Vitamin D2] ferrous gluconate 324 mg PO BID 03/04/19 02/01/20 levothyroxine 175 mcg PO DAILY 03/04/19 02/01/20 torsemide 60 mg PO DAILY 03/04/19 02/01/20 polyethylene glycol 3350 17 g PO DAILY 04/25/19 02/01/20 senna 17.2 mg PO .QHS 04/25/19 02/01/20 benztropine 1 mg tablet 1 mg PO BID 08/04/19 02/01/20 divalproex 500 mg tablet,delayed 2,000 mg PO .QHS tab 08/04/19 02/01/20 release omeprazole 20 mg capsule,delayed 20 mg PO BID 08/04/19 02/01/20 release potassium chloride 10 mEq 30 meq PO DAILY tab 08/04/19 02/01/20 tablet,extended release clozapine 250 mg PO HS 09/01/19 02/01/20 insulin aspart U-100 [Novolog 1 - 6 unit SUBCUT TID PRN 09/01/19 02/01/20 Flexpen U-100 Insulin] acetaminophen [Tylenol] 650 mg BID 02/01/20 02/01/20 levofloxacin 750 mg PO DAILY 4 Days #4 tab 02/01/20 magnesium chloride 128 mg PO BID 02/01/20 02/01/20 prochlorperazine maleate 10 mg PO TID PRN #7 tab 02/01/20 [Compazine] white petrolatum-mineral oil See Rx Instructions .ROUTE .COMPLEX 02/01/20 02/01/20 Previous Rx's Medication Instructions Recorded levofloxacin 750 mg PO DAILY 4 Days #4 tab 02/01/20 prochlorperazine maleate 10 mg PO TID PRN #7 tab 02/01/20 [Compazine] Allergies Allergy/AdvReac Type Severity Reaction Status Date / Time prednisone Allergy Unknown Unverified 12/24/19 13:08 lithium Allergy Unverified 12/24/19 13:08 oxycodone [From OxyContin] Allergy Unverified 12/24/19 13:08 Penicillins Allergy Unverified 12/24/19 13:08 pioglitazone Allergy Unverified 12/24/19 13:08 Sulfa (Sulfonamide Allergy Unverified 12/24/19 13:08 Antibiotics) tramadol Allergy Unverified 12/24/19 13:08 General Stated Complaint: Nausea/Vomit/Diar DIONE: 3 Review of Systems <Kayla Bedolla DO - Last Filed: 02/01/20 21:59> All systems reviewed & are unremarkable except as noted in HPI and below Constitutional Constitutional: Reports as per HPI, Denies chills and Denies fever(s) Eyes Eyes: Denies blurry vision ENT Ears, Nose, Mouth, and Throat: Denies dizziness, Denies sore throat and Denies throat swelling Cardiovascular Cardiovascular: Denies chest pain and Denies dyspnea Respiratory Respiratory: Reports cough and Denies dyspnea Gastrointestinal Gastrointestinal: Denies abdominal pain, Denies diarrhea and Reports vomiting Genitourinary Genitourinary: Denies hematuria and Denies dysuria Musculoskeletal Musculoskeletal: Denies back pain and Denies numbness Integumentary/Breasts Skin/Breast: Denies lesions and Denies rash Neurologic Neurologic: Denies dizziness, Denies localized weakness and Denies numbness Allergic/Immunologic Allergic/Immunologic: Denies throat swelling PFSH <Kayla Bedolla DO - Last Filed: 02/01/20 21:59> Medical History (Updated 02/01/20 @ 18:08 by Kayla Bedolla DO) Acute kidney injury Alcoholism in remission Bipolar 1 disorder Cognitive impairment COPD (chronic obstructive pulmonary disease) Diabetes mellitus type II, controlled Diabetic neuropathy Diastolic dysfunction Falls frequently GERD (gastroesophageal reflux disease) Heart murmur History of alcohol abuse Hyperthyroidism Hypothyroid Left bundle branch block AVANI (obstructive sleep apnea) Pancreatitis Schizoaffective disorder Secondary Parkinson disease Subdural hematoma small right September 2018 2/2 mechanical fall Tobacco dependence Surgical History H/O abdominal surgery S/P thoracotomy Social History Smoking/Tobacco Use Status: Current every day Tobacco Type: cigarettes Smoking packs per day: 0.5 Smoking cigarettes per day: 10.0 Smoking risk assessment performed?: Yes Alcohol Intake: former Drug use: Never Substance use type: does not use Housing: half-way current occupation: Disabled. Lives at [facility] Seatbelt use: always Do you feel safe at home: Yes Do you feel safe in your relationship?: Yes Additional Social history: Resident @ [facility] H&R Exam <Kayla Bedolla DO - Last Filed: 02/01/20 21:59> Const General: cooperative and no acute distress Orientation: alert, awake and oriented x3 HENMT Head: normal to inspection Ears: hearing grossly normal bilaterally and external ears normal General nose exam: external nose normal Face and sinus: normal facial exam Mouth: oral mucosae normal Throat: posterior oropharynx normal Eyes General: appearance normal, both eyes and all related structures Eyelids: eyelids normal Pupils: PERRL EOM: EOM intact bilaterally Neck Neck: normal visual inspection Lymphatic: no lymphadenopathy noted Chest Chest: normal inspection of the chest Resp Effort & Inspection: normal respiratory effort and able to speak in complete sentences Auscultation: clear to auscultation bilaterally Cardio Rate: regular rate Rhythm: regular rhythm GI Inspection: normal to inspection Palpation: soft, not firm, no guarding, no hepatosplenomegaly, no masses and nontender Auscultation: normal bowel sounds Back/Spine/Pelvis Thoracic/Lumbar Spine: thoracic and lumbar spine normal to inspection Skin General skin exam: no rashes or lesions noted Neuro General: patient alert and patient awake Cognition: normal cognition Speech: speech normal Gait: normal gait Motor: muscle tone normal throughout Sensory Exam: no sensory deficits noted Extrem General: normal to inspection, full ROM and capillary refill normal Psych Appearance: grossly normal Mental Status: mental status grossly normal Speech and Movement: speech and movement normal Affect: normal affect Thought Process: normal Course <Kayla Bedolla, DO - Last Filed: 02/01/20 21:59> Vital Signs Vital signs: Vital Signs Temperature 97.3 F L 02/01/20 13:11 Pulse 79 02/01/20 13:11 Respiratory Rate 22 02/01/20 13:11 Blood Pressure 130/78 02/01/20 13:11 Pulse Oximetry 96 02/01/20 13:11 Temperature 97.3 F L 02/01/20 13:11 Temperature Source Temporal Artery Scan 02/01/20 13:11 Pulse 79 02/01/20 13:11 Respiratory Rate 22 02/01/20 13:11 Blood Pressure 130/78 02/01/20 13:11 Blood Pressure Position Supine 02/01/20 13:11 Pulse Oximetry 96 02/01/20 13:11 Oxygen Delivery Method Room Air 02/01/20 13:11 Oxygen Flow Rate 0 02/01/20 13:11 Pain Level 0 02/01/20 13:11
[2020-02-01 13:50] LABS: Abs Immature Grans 0.51 10^3/uL (0.0-0.06); HGB 10.3 g/dL (11.2-15.7); MCH 31.3 pg (27.0-33.0); MCHC 32.2 % (32.0-36.0); MCV 97.3 fL (80-95); MPV 9.7 fL (8.0-11.0); Nucleated RBC 0 %; RBC 3.29 10^6/uL (3.93-5.22); RDW 13.8 % (11.7-14.6); RDW-SD 49.2 fL; WBC 17.34 10^3/uL (4.4-10.8)
[2020-02-01 13:51] LABS: Bilirubin Small (Negative); Blood Trace-lysed (Negative); Clarity Cloudy (Clear); Glucose Negative (Negative); Ketones Negative (Negative); Leukocyte Esterase Moderate (Negative); Nitrite Positive (Negative)
--- NOTE | 2020-02-01 14:00 | DI.CT_ITS ---
EXAM: CT CHEST PE ABD PELVIS W CLINICAL HISTORY: cough, vomiting, r/o pneumonia, SBO. TECHNIQUE: Imaging Protocol: Axial CT angiography was performed with multi-slice acquisition and mu lti-planar and/or 3D reconstructions. CONTRAST MATERIAL: Intravenous: Omnipaque 350 Contrast volume:100 mL COMPARISON: CT CT ABDOMEN PELVIS W from 12/24/2019 FINDINGS: Pulmonary Arteries: No evidence of filling defect to suggest pulmonary emboli. Tracheobronchial tree: Patent where visualized. Mediastinum and Deisy: No dominant adenopathy or fluid collection. Pulmonary parenchyma: The previously present infiltrate in the right lower lobe has resolved. Mild i ncreased markings are noted in the posterior basal segment of the right lower lobe, not associated wi th a pleural effusion. Mild increased markings are also noted in the posterior basal segment of the left lower lobe, also without evidence of a pleural effusion. There is no evidence of pulmonary infa rction. Pleura: No effusion or pneumothorax. Heart: The heart is not dilated. There is no pericardial effusion. Caliber of the thoracic aorta is within normal limits. In the abdomen there is no ascites. There are no discrete focal hepatic lesions no dilatation of in trahepatic ducts. No obvious gallbladder pathology. In the pancreas there is a there is a cystic le amanda in the body-tail region which measures 9 by 8 by 9 millimeters consistent with a cyst or intra p ancreatic cystic neoplasm. The pancreatic duct is not dilated. Spleen is not enlarged. Splenic and portal veins are patent. There are no significant findings in t he right adrenal gland. Nodular density in the left adrenal measuring 12 x 10 millimeters. Probable adenoma. There is a 4 millimeter nonobstructive calculus in this left kidney. No other significant focal renal finding is in the left kidney. Right kidney appears somewhat scarred and atrophic. Abdominal aorta is calcified but not enlarged. Few small para-aortic lymph nodes are noted. There is no evidence of significant anterior abdominal wall hernia, bowel obstruction, nor free air. In the pelvis there is no evidence for appendicitis no obvious diverticulitis. There is no intrapelv ic or inguinal adenopathy. Uterus and adnexal regions appear age appropriate. There no extraovarian adnexal masses nor free fluid in the pelvis. Urinary bladder wall appears uniformly thickened but t his may be due to the fact that the bladder is collapsed. Nevertheless, bladder wall thickness is ap proximately 11 millimeters. Bone windows reveal bilateral pars defects at L5.. There is mild anterolisthesis of L5 upon S1 witho ut disc space narrowing at this level. There are no lytic osseous lesions identified. IMPRESSION: No evidence of pulmonary emboli. Small area of infiltrate in the posterior basal segment of the righ t lower lobe is noted, not associated with pleural effusion. The previously present larger infiltrat e in the right lower lobe seen on the prior CT scan of 12/24/2019 has significantly decreased in size . 4 millimeter nonobstructive calculus in left kidney. Uniform thickening of the urinary bladder wall such as seen with cystitis. However the bladder is co llapsed. This may exaggerate bladder wall thickness. 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 Recommend follow-up MRI. RADIATION DOSE DELIVERED: 1,272.97mGy.cm Total DLP DATA REPOSITORY: All CT scans at this facility are submitted to the National Radiology Data Registry (NRDR) Dose Index Registry (DIR) with the [employer] (ACR). RADIATION OPTIMIZATION: All CT scans at this facility use at least one of these dose optimization te chniques: automated exposure control; mA and/or kV adjustment per patient size (includes targeted exa ms where dose is matched to clinical indication); or iterative reconstruction.
[2020-02-01 14:06] LABS: INR 1.2 (0.9-1.1); PTT Activated 25.9 sec (21.0-27.5); Prothrombin Time 11.9 sec (9.3-11.0)
[2020-02-01 14:08] LABS: ALT 55 U/L (14-59); AST 104 U/L (15-37); Alkaline Phosphatase 142 U/L (46-116); Anion Gap 9.9 mmol/L (3-11); BUN 28 mg/dL (7-18); Bilirubin, Total 0.8 mg/dL (0.2-1.0); CO2 26.1 mmol/L (21.0-32.0); CREATININE 1.23 mg/dL (0.55-1.02); Calcium 9.3 mg/dL (8.5-10.1); Chloride 98 mmol/L (98-107); Glucose 208 mg/dL (74-106); Magnesium 1.9 mg/dL (1.8-2.4); Potassium 3.4 mmol/L (3.5-5.1); Sodium 134 mmol/L (136-145); Total Protein 8.7 g/dL (6.4-8.2)
[2020-02-01 14:12] LABS: Troponin I < 0.05 ng/mL (<0.06)
[2020-02-01 14:19] LABS: Bacteria Many HPF (Negative); C & S Indicated? Yes; WBC >50 HPF (0-5)
[2020-02-01 14:27] LABS: Absolute Lymphocyte Count 2.08 10^3/uL (1.2-3.4); Absolute Monocyte Count 1.21 10^3/uL (0.1-0.8); Absolute Neutrophil Count 13.53 10^3/uL (1.2-6.7); Bands % 18; Metamyelocytes % 2; Myelocytes % 1; Platelet Count 507 10^3/uL (130-400)
[2020-02-01 14:28] LABS: Diff Comment Manual Differential; Polychromasia Present
[2020-02-01 15:34] LABS: VALPROIC ACID 78.9 ug/mL (50-100)
[2020-02-01] MEDS: Omnipaque 350 MG/ML 100 ML BTL IJ (16:25)
[2020-02-01] MEDS: Normal Saline - Diluent 50 ML VIAL IV (16:26)
[2020-02-01] MEDS: levoFLOXacin 750 MG/150 ML BAG 100 MG IVPB (16:45)
[2020-02-01] MEDS: Prochlorperazine 10 MG/2 ML VIAL IVP (16:45)
[2020-02-01] MEDS: Normal Saline 1,000 ML 1000 ML IV (16:45)
--- NOTE | 2020-02-01 17:27 | DI.VRAD_ITS ---
PROCEDURE INFORMATION: Exam: CT Chest With Contrast; Diagnostic Exam date and time: 02/01/2020 4:27 PM Age: 54 years old Clinical indication: Cough and shortness of breath; Other: Cough, vomitting, TECHNIQUE: Imaging protocol: Diagnostic computed tomography of the chest with intravenous contrast. 3D rendering (Not supervised by radiologist): MIP and/or 3D reconstructed images were created by the technologist. COMPARISON: CT abdomen and pelvis dated 12/24/2019, CT CHEST/ABD/PEL WO 02/06/2019 2:55 PM FINDINGS: Lungs: The prior airspace opacities within the medial segment of the right middle lobe and medial base of the right lower lobe on exam dated 12/24/2019 have resolved. There are regions of subsegmental atelectasis within the left upper lobe, left lower lobe and right lower lobe. There are regions of mucous plugging within the posteromedial basilar segmental left lower lobe bronchus as well as within multiple basilar segmental right lower lobe bronchi, new since 12/24/2019. There is new focal airspace opacity within the posterior base of the right lower lobe on image 416, series 5 measuring 1.0 x 2.5 cm, which could represent atelectasis but cannot exclude focal pneumonia on this exam. Pleural space: The tiny right pleural effusion on exam dated 12/24/2019 has resolved. No layering pleural effusions are identified. There is no pneumothorax. Heart: Heart size is near the upper limits of normal. There is no bowing of the interventricular septum or disproportionate enlargement of the right heart. There is no pericardial effusion. Mediastinal space: There is no hiatal hernia. Pulmonary arteries: No central filling defects within the pulmonary arteries are identified to suggest pulmonary embolism, although evaluation is limited by motion artifact. The central pulmonary arteries are not dilated. Aorta: No thoracic aortic aneurysm is identified. There is no evidence for aortic dissection. Lymph nodes: There is no thoracic adenopathy. Bones/joints: Multilevel tfni-wy-bzxithij degenerative disc disease throughout the thoracic spine. No acute fracture. Soft tissues: Unremarkable. IMPRESSION: 1. No pulmonary embolism identified. 2. New regions of mucous plugging within the lung bases suggesting bronchitis. There is a new small airspace opacity within the posterior base of the right lower lobe which could represent focal pneumonia. Recommend clinical correlation and follow-up. PROCEDURE INFORMATION: Exam: CT Abdomen And Pelvis With Contrast Exam date and time: 02/01/2020 4:27 PM Age: 54 years old Clinical indication: Cough and shortness of breath; Other: Cough, vomitting, TECHNIQUE: Imaging protocol: Computed tomography of the abdomen and pelvis with intravenous contrast. 3D rendering (Not supervised by radiologist): MIP and/or 3D reconstructed images were created by the technologist. COMPARISON: CT CHEST/ABD/PEL WO 02/06/2019 2:55 PM FINDINGS: Liver: Normal. No mass. Gallbladder and bile ducts: Normal. No calcified stones. No ductal dilation. Pancreas: Normal. No ductal dilation. Spleen: Normal. No splenomegaly. Adrenal glands: Normal. No mass. Kidneys and ureters: Again noted is a 2 mm nonobstructing left upper pole renal stone. There are no ureteral stones. There is no hydronephrosis or hydroureter. Again noted are regions of marked cortical thinning involving the right kidney, consistent with scarring. Stomach and bowel: Around image 312, series 11, there may be mild wall thickening and mucosal hyperenhancement of the distal gastric antrum and gastric pylorus, which could represent mild gastritis in this region. There is no other evidence of bowel inflammation. There is no evidence for bowel obstruction. Appendix: No evidence of appendicitis. Intraperitoneal space: Unremarkable. No free air. No significant fluid collection. Vasculature: Again noted is a retroaortic left renal vein, normal variant. There is moderate to severe atherosclerotic calcification of the lower abdominal aorta and common iliac arteries, as on prior study, without aneurysm formation. Lymph nodes: Unremarkable. No enlarged lymph nodes. Urinary bladder: The bladder is collapsed and is not well evaluated. There may be some degree of diffuse bladder wall thickening with mucosal hyperenhancement. Recommend clinical correlation for cystitis. Reproductive: Unremarkable as visualized. Bones/joints: Unremarkable. No acute fracture. No dislocation. Soft tissues: Unremarkable. IMPRESSION: 1. Possible mild gastritis involving the distal gastric antrum and pylorus. Recommend clinical correlation. 2. Punctate nonobstructing left renal stone, as on prior study. 3. Cannot exclude mild diffuse bladder wall thickening which can be seen in setting of cystitis. Recommend clinical correlation. Dictated and Authenticated by: Skinny Keyes MD. Ordering:JOSE Garza MD
--- NOTE | 2020-02-01 18:27 | NUR.NOTE ---
report given to marj at the [facility]. 1 dose antibiotics sent with pt for tomorrow. pt cleaned, fresh depends placed. paper clothes given. pt left via ems:
--- NOTE | 2020-02-02 16:19 | NUR.NOTE ---
Referral to Care Management to make sure the [facility] [place] with Dr. Morocho to order MRI javier, a mass on her pancreas was missed by off site radiology reading.Nursing Note:
--- NOTE | 2020-02-03 08:57 | ED.FU.B_ITS ---
Urine culture results from 01/31 growing E. coli with multiple resistance including resistance to fluoroquinolones. Patient was prescribed Levaquin here in the emergency department and will need additional antibiotic coverage. I called and spoke with Aranza BUSTOS at the [facility] and discussed results. I will send the results to her for review. She will follow up and adjust antibiotic as appropriate.
--- NOTE | 2020-02-03 09:39 | NUR.NOTE ---
Nursing Note: Urine culture results faxed to the [facility] per Dr. Morris Camilo. Latisha Arellano
== END 2020-02-01 18:38 | disposition home or self-care (01) ==
PROVIDERS: Emergency Provider Physician Assistant; PCP Family Medicine
DX: N30.00 Acute cystitis without hematuria (principal); B96.20 Unspecified Escherichia coli [E. coli] as the cause of diseases classified elsewhere; J18.9 Pneumonia, unspecified organism; R11.2 Nausea with vomiting, unspecified; R93.3 Abnormal findings on diagnostic imaging of other parts of digestive tract; E11.65 Type 2 diabetes mellitus with hyperglycemia; Z79.4 Long term (current) use of insulin; J44.9 Chronic obstructive pulmonary disease, unspecified; F17.210 Nicotine dependence, cigarettes, uncomplicated; G20 Parkinson's disease
CPT/HCPCS: 36415; 71275; 74177; 80053; 87077; 93005; 96361; 96365; 96375; 99285; 80164; 81003; 81015; 83735; 84484; 85025; 85610; 85730; 87086; 87186; 93010; J0780; J1956; J3490

== ENCOUNTER 2020-02-06 10:48 | Outpatient (REF) | payer MEDICARE, MEDICAID, SELFPAY ==
[2020-02-06 13:45] LABS: Absolute Basophil Count 0.03 10^3/uL (0.0-0.2); Absolute Lymphocyte Count 3.18 10^3/uL (1.2-3.4); Absolute Monocyte Count 0.62 10^3/uL (0.1-0.8); Absolute Neutrophil Count 6.47 10^3/uL (1.2-6.7); Basophils % 0.3; HCT 31.4 % (36.0-46.0); HGB 9.8 g/dL (11.2-15.7); Immature Grans % 4.6; Lymphocytes % 29.4; MCH 30.7 pg (27.0-33.0); MCHC 31.2 % (32.0-36.0); MCV 98.4 fL (80-95); MPV 11.3 fL (8.0-11.0); Monocytes % 5.7; Nucleated RBC 0 %; Platelet Count 361 10^3/uL (130-400); RBC 3.19 10^6/uL (3.93-5.22); RDW 14.1 % (11.7-14.6)
[2020-02-06 13:55] LABS: ALT 24 U/L (14-59); AST 37 U/L (15-37); Albumin 2.1 g/dL (3.4-5.0); Alkaline Phosphatase 98 U/L (46-116); Amylase 36 U/L (25-115); Anion Gap 6.6 mmol/L (3-11); BUN 18 mg/dL (7-18); Bilirubin, Total 0.4 mg/dL (0.2-1.0); CO2 30.4 mmol/L (21.0-32.0); CREATININE 0.92 mg/dL (0.55-1.02); Calcium 8.8 mg/dL (8.5-10.1); Chloride 100 mmol/L (98-107); Glucose 99 mg/dL (74-106); Lipase 114 U/L (73-393); Magnesium 2.4 mg/dL (1.8-2.4); Sodium 137 mmol/L (136-145); Total Protein 7.1 g/dL (6.4-8.2)
== END 2020-02-06 11:08 ==
LOC: NCHCN 10:48
PROVIDERS: PCP Family Medicine; Visit Provider Family Medicine
DX: N30.01 Acute cystitis with hematuria (principal); M62.82 Rhabdomyolysis; J84.114 Acute interstitial pneumonitis; G47.33 Obstructive sleep apnea (adult) (pediatric); R11.11 Vomiting without nausea; F60.1 Schizoid personality disorder
CPT/HCPCS: 80053; 83690; 82150; 83735; 85025

== ENCOUNTER 2020-02-13 11:44 | Outpatient (REF) | payer MEDICARE, MEDICAID, SELFPAY ==
[2020-02-13 12:25] LABS: Abs Immature Grans 0.11 10^3/uL (0.0-0.06); Absolute Basophil Count 0.03 10^3/uL (0.0-0.2); Absolute Lymphocyte Count 3.03 10^3/uL (1.2-3.4); Absolute Monocyte Count 0.67 10^3/uL (0.1-0.8); Absolute Neutrophil Count 3.69 10^3/uL (1.2-6.7); Basophils % 0.4; HCT 29.6 % (36.0-46.0); HGB 9.5 g/dL (11.2-15.7); Immature Grans % 1.5; Lymphocytes % 40.2; MCH 31.4 pg (27.0-33.0); MCHC 32.1 % (32.0-36.0); MCV 97.7 fL (80-95); MPV 12.8 fL (8.0-11.0); Monocytes % 8.9; Nucleated RBC 0 %; RBC 3.03 10^6/uL (3.93-5.22); RDW-SD 52.8 fL; WBC 7.53 10^3/uL (4.4-10.8)
[2020-02-13 13:00] LABS: Anisocytosis 1+; Diff Comment PLT Morph Reviewed; Polychromasia Present
[2020-02-13 15:10] LABS: Anion Gap 8.7 mmol/L (3-11); BUN 17 mg/dL (7-18); CO2 27.3 mmol/L (21.0-32.0); CREATININE 0.99 mg/dL (0.55-1.02); Calcium 8.3 mg/dL (8.5-10.1); Chloride 103 mmol/L (98-107); Estimated GFR 58.45 (mL/min/1.73m2); Glucose 150 mg/dL (74-106); Potassium 3.7 mmol/L (3.5-5.1); Sodium 139 mmol/L (136-145)
== END 2020-02-13 12:04 ==
LOC: NCHCN 11:44
PROVIDERS: PCP Family Medicine; Visit Provider Family Medicine
DX: N30.01 Acute cystitis with hematuria (principal); M62.81 Muscle weakness (generalized); F60.1 Schizoid personality disorder; E08.59 Diabetes mellitus due to underlying condition with other circulatory complications; F41.1 Generalized anxiety disorder; G21.8 Other secondary parkinsonism
CPT/HCPCS: 80048; 83735; 85025

== ENCOUNTER 2020-02-14 01:34 | Outpatient (CLI) | payer MEDICARE, MEDICAID, SELFPAY ==
--- NOTE | 2020-02-14 10:45 | DI.MRI_ITS ---
EXAM: MR ABDOMEN WO/W CLINICAL HISTORY: F/U CYSTIC LESION OF PANCREAS,CYST VS NEOPLASM,F/U ABNL CT. TECHNIQUE: Multiplanar multisequence MRI was performed. COMPARISON: CT CT CHEST PE ABD PELVIS W from 02/01/2020 FINDINGS: MR examination of abdomen was performed utilizing pancreatic protocol including post contrast multipl lisseth imaging. The liver and spleen show normal signal with no evidence of mass lesion. Gallbladder and bile ducts a re unremarkable, no pancreatic dilatation seen. There is atrophy of the right kidney and compensatory hypertrophy of the left kidney. Abdominal aorta is of normal diameter. No gross adenopathy identified in the retroperitoneum. There is 10 millimeter in diameter well-circumscribed smooth walled fluid signal mass of the pancreat ic tail, this is not seen to communicate with the pancreatic duct. This shows no enhancement on post contrast imaging. No internal signal abnormalities seen to suggest complex cyst or septations, no mur al nodule identified. No other pancreatic signal abnormality seen. No pancreatic enlargement. IMPRESSION: Unilocular simple cyst of the pancreatic tail, 10 millimeters. 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 A follow-up MRI of the vargas creas is recommended in 12 months. DATA REPOSITORY:
[2020-02-14] MEDS: Gadoterate meglumine 20 ML VIAL 16 ML IVP (10:52)
== END 2020-02-14 01:54 ==
PROVIDERS: PCP Family Medicine; Visit Provider Nurse Practitioner Gerontology
DX: K86.2 Cyst of pancreas (principal)
CPT/HCPCS: 74183

== ENCOUNTER 2020-03-12 00:59 | Outpatient (CLI) | payer MEDICARE, MEDICAID, SELFPAY ==
--- NOTE | 2020-03-12 | DI.RAD_ITS ---
EXAM: XR THORACIC SPINE COMPLETE CLINICAL HISTORY: MID THORACIC BACK PAIN, H/O FALLS, ? COMP FX. TECHNIQUE: 2D digital imaging was performed. COMPARISON: No exams were available for comparison FINDINGS: There is no evidence of compression fracture nor listhesis nor disc space narrowing. Subtle density in the lower thoracic vertebral bodies noted but this is most probably related to overlapping rib on the lateral view. No lytic lesions seen. No scoliosis. No abnormal widening of the paraspinal line s. IMPRESSION: DATA REPOSITORY: RADIATION DOSE DELIVERED:
== END 2020-03-12 01:19 ==
PROVIDERS: PCP Family Medicine; Visit Provider Family Medicine
DX: M54.6 Pain in thoracic spine (principal)
CPT/HCPCS: 72072

== ENCOUNTER 2020-03-14 17:55 | Outpatient (REF) | payer MEDICARE, MEDICAID, SELFPAY ==
[2020-03-14 12:13] LABS: Abs Immature Grans 0.04 10^3/uL (0.0-0.06); Absolute Basophil Count 0.03 10^3/uL (0.0-0.2); Absolute Lymphocyte Count 3.18 10^3/uL (1.2-3.4); Absolute Monocyte Count 0.71 10^3/uL (0.1-0.8); Absolute Neutrophil Count 4.85 10^3/uL (1.2-6.7); Basophils % 0.3; HCT 32.1 % (36.0-46.0); HGB 10.2 g/dL (11.2-15.7); Immature Grans % 0.5; Lymphocytes % 36.1; MCH 31.6 pg (27.0-33.0); MCHC 31.8 % (32.0-36.0); MCV 99.4 fL (80-95); Monocytes % 8.1; Nucleated RBC 0 %; Platelet Count 186 10^3/uL (130-400); RBC 3.23 10^6/uL (3.93-5.22); RDW 15.7 % (11.7-14.6); RDW-SD 57.2 fL; WBC 8.81 10^3/uL (4.4-10.8)
[2020-03-14 12:20] LABS: Anion Gap 9.1 mmol/L (3-11); BUN 14 mg/dL (7-18); CO2 30.9 mmol/L (21.0-32.0); CREATININE 0.88 mg/dL (0.55-1.02); Calcium 8.8 mg/dL (8.5-10.1); Chloride 103 mmol/L (98-107); Glucose 190 mg/dL (74-106); Sodium 143 mmol/L (136-145)
== END 2020-03-14 18:15 ==
LOC: NCHCN 17:55
PROVIDERS: PCP Family Medicine; Visit Provider Family Medicine
DX: F41.1 Generalized anxiety disorder (principal); F60.1 Schizoid personality disorder; Z79.899 Other long term (current) drug therapy
CPT/HCPCS: 80048; 85025

== ENCOUNTER 2020-04-11 16:13 | Outpatient (REF) | payer MEDICARE, MEDICAID, SELFPAY ==
[2020-04-11 17:55] LABS: Abs Immature Grans 0.03 10^3/uL (0.0-0.06); Absolute Basophil Count 0.06 10^3/uL (0.0-0.2); Absolute Lymphocyte Count 3.07 10^3/uL (1.2-3.4); Absolute Monocyte Count 0.61 10^3/uL (0.1-0.8); Absolute Neutrophil Count 3.19 10^3/uL (1.2-6.7); Basophils % 0.8; Eosinophils % 1.4; HCT 32.1 % (36.0-46.0); HGB 10.5 g/dL (11.2-15.7); Immature Grans % 0.4; Lymphocytes % 43.5; MCH 32.4 pg (27.0-33.0); MCHC 32.7 % (32.0-36.0); MCV 99.1 fL (80-95); MPV 12.3 fL (8.0-11.0); Monocytes % 8.6; Neutrophils % 45.3; Nucleated RBC 0 %; Platelet Count 166 10^3/uL (130-400); RBC 3.24 10^6/uL (3.93-5.22); RDW 14.3 % (11.7-14.6); RDW-SD 52.3 fL; WBC 7.06 10^3/uL (4.4-10.8)
== END 2020-04-11 16:14 | disposition home or self-care (01) ==
LOC: NCHCN 16:13
PROVIDERS: PCP Family Medicine; Visit Provider Family Medicine
DX: F60.1 Schizoid personality disorder (principal); F31.5 Bipolar disorder, current episode depressed, severe, with psychotic features
CPT/HCPCS: 85025

== ENCOUNTER 2020-05-04 15:56 | Outpatient (REF) | payer MEDICARE, MEDICAID, SELFPAY ==
[2020-05-04 16:43] LABS: Abs Immature Grans 0.04 10^3/uL (0.0-0.06); Absolute Basophil Count 0.04 10^3/uL (0.0-0.2); Absolute Eosinophil Count 0.11 10^3/uL (0.0-0.7); Absolute Lymphocyte Count 2.65 10^3/uL (1.2-3.4); Absolute Monocyte Count 0.61 10^3/uL (0.1-0.8); Absolute Neutrophil Count 3.68 10^3/uL (1.2-6.7); Basophils % 0.6; Eosinophils % 1.5; HCT 33.6 % (36.0-46.0); HGB 11.1 g/dL (11.2-15.7); Immature Grans % 0.6; Lymphocytes % 37.2; MCH 31.9 pg (27.0-33.0); MCV 96.6 fL (80-95); MPV 11.3 fL (8.0-11.0); Monocytes % 8.6; Neutrophils % 51.5; Nucleated RBC 0 %; Platelet Count 185 10^3/uL (130-400); RBC 3.48 10^6/uL (3.93-5.22); RDW 13.2 % (11.7-14.6); RDW-SD 46.7 fL; WBC 7.13 10^3/uL (4.4-10.8)
[2020-05-04 16:51] LABS: Magnesium 1.7 mg/dL (1.8-2.4)
[2020-05-04 17:05] LABS: Hemoglobin A1C 7.9 % (<5.7)
== END 2020-05-04 15:57 | disposition home or self-care (01) ==
LOC: NCHCN 15:56
PROVIDERS: PCP Family Medicine; Visit Provider Family Medicine
DX: F31.5 Bipolar disorder, current episode depressed, severe, with psychotic features (principal); F60.1 Schizoid personality disorder; E11.9 Type 2 diabetes mellitus without complications; J43.8 Other emphysema; F41.1 Generalized anxiety disorder; E83.42 Hypomagnesemia
CPT/HCPCS: 83036; 83735; 85025

== ENCOUNTER 2020-06-01 10:20 | Outpatient (REF) | payer MEDICARE, MEDICAID, SELFPAY ==
[2020-06-01 12:22] LABS: Abs Immature Grans 0.02 10^3/uL (0.0-0.06); Absolute Basophil Count 0.05 10^3/uL (0.0-0.2); Absolute Eosinophil Count 0.14 10^3/uL (0.0-0.7); Absolute Lymphocyte Count 3.29 10^3/uL (1.2-3.4); Absolute Neutrophil Count 3.25 10^3/uL (1.2-6.7); Basophils % 0.7; Eosinophils % 1.9; HCT 36.1 % (36.0-46.0); HGB 12.3 g/dL (11.2-15.7); Immature Grans % 0.3; Lymphocytes % 44.8; MCH 31.1 pg (27.0-33.0); MCHC 34.1 % (32.0-36.0); MCV 91.4 fL (80-95); Monocytes % 8.2; Neutrophils % 44.1; Nucleated RBC 0 %; Platelet Count 163 10^3/uL (130-400); RBC 3.95 10^6/uL (3.93-5.22); RDW 12.2 % (11.7-14.6); RDW-SD 40.7 fL; WBC 7.35 10^3/uL (4.4-10.8)
--- OUTSIDE RECORDS SUMMARY | 2020-06-04 10:24 | XMS_ITS ---
:1965 Author Care Team Providers Name Role Phone EDUARD FARMER MD Primary Care Provider [phone] Allergies Code Code System Name Reaction Severity Status Onset 6448 RxNorm [place] ? ? Active ? 863366 RxNorm Oxycontin ? ? Active ? Penicillins ? ? Active ? 70910 RxNorm Percocet ? ? Active ? 46066 RxNorm Pioglitazone ? ? Active ? 8640 RxNorm Prednisone ? ? Active ? Sulfa ? ? Active ? (Sulfonamide Antibiotics) 28004 RxNorm Tramadol ? ? Active ? Medications Name Status Start Date Stop Date ? ? clozapine 200 mg tablet Active ? Not avai lable Take 1 tablet twice a day by oral route. Combivent Respimat 20 mcg-100 mcg/actuation solution for inhalat ion Active ? Not available Inhale 1 puff 4 times a day by inhalation route. ferrous sulfate 324 mg (65 mg iron) tablet,delayed release Activ e ? Not available Take by oral route. glimepiride 2 mg tablet Active ? Not avai lable Take 1 tablet every day by oral route. Lantus Solostar U-100 Insulin Active ? No t available lisinopril 10 mg tablet Active ? Not avai lable Take 1 tablet every day by oral route. metformin 1,000 mg tablet Active ? Not av ailable Take 1 tablet twice a day by oral route. Miralax 17 gram oral powder packet Active ? Not available Take 1 packet every day by oral route. Motrin Active ? Not available multivitamin Active ? Not available niacin (inositol niacinate) 500 mg tablet Active ? Not available Take by oral route. nicotine 21 mg/24 hr daily transdermal patch Active ? Not available Apply 1 patch every day by transdermal route. Nicotrol 10 mg inhalation cartridge Active ? Not available Inhale by inhalation route. Novolog Flexpen U-100 Insulin Active ? No t available Pravachol 40 mg tablet Active ? Not avail able Take 1 tablet every day by oral route. Proair Digihaler 90 mcg/actuation aerosol powder breath act, sen sor Active ? Not available Inhale 2 puffs every 4 hours by inhalation route. Symbicort 160 mcg-4.5 mcg/actuation HFA aerosol inhaler Active ? Not available Inhale 2 puffs twice a day by inhalation route. Problems Name Status Onset Date Source ? Hypothyroidism Unknown 07/27/2019 ? Type 2 Diabetes Mellitus Active 07/27/2019 ? Schizophrenia Active 07/27/2019 ? Obstructive Sleep Apnea Syndrome Active 07/27/2019 ? Parkinson's Disease Active 07/27/2019 ? 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 Heart Disease Active 07/27/2019 ? Pulmonary Emphysema Active 07/27/2019 ? Gastroesophageal Reflux Disease Active 07/27/2019 ? Dysphagia Active 07/27/2019 ? Procedures None recorded. Results Lab Results None recorded. Past Encounters 04/19/2020 Obstructive Sleep Apnea Syndrome Regina Camacho SPECIAL INSPECTOR: [address] [place] [phone], Ph. 10/04/2019 Obstructive Sleep Apnea Syndrome Regina Camacho SPECIAL INSPECTOR: [address] [place] [phone], Ph. 08/02/2019 Obstructive Sleep Apnea Syndrome Regina Camacho SPECIAL INSPECTOR: [address] [place] [phone], Ph. Social History Tobacco Smoking Status Former Smoker (2 PPD) Notes: quit 2019 Vaccine List None recorded. Plan of Care Reminders Provider Appointments None ? ? recorded. Lab None ? ? recorded. Referral None ? ? recorded. Procedures None ? ? recorded. Surgeries None ? ? recorded. Imaging None ? ? recorded. Vitals 04/19/2020 11:15AM Office 30 Height Weight BMI Blood Pressure 154.94 cm 69.4 kg 28.9 kg/m2 146/93 mm[Hg] 10/04/2019 11:00AM Office 30 Height Weight BMI Blood Pressure 154.94 cm 73.03 kg 30.4 kg/m2 128/72 mm[Hg] 08/02/2019 11:00AM New Patient 45 Blood Pressure 128/72 mm[Hg]
--- OUTSIDE RECORDS SUMMARY | 2020-06-04 10:24 | XMS_ITS | Encounter Summary ---
:1965 Author Care Team Providers Name Role Phone Mikayla Torres MD Primary Care Provider [phone] Reason for Visit None recorded. Assessment and Plan 1. Obstructive sleep apnea syndr ome AVANI diagnosed on HST in 2014 w ith an AHI of 16/hr. She has COPD overlap, she does not use supplemental oxygen. She has been using BiPAP Imax 9 cm, Portillo 4 cm, PS 4 cm. There was question from h er psychiatrist whether she was being ad equately treated (as she had a mental status change) and I ordered a titration study last visit but this was never completed. She uses her BiPAP but only averages two hours a night because she removes i t to use the bathroom and then forgets or is unable to get it back on by herself. Even is numbers look good on BiPAP she needs to use it much longer to benefit fr om it. I have asked her to ask the staff at the [facility] to help get it back on at night. She does have a call hernandez she can use to get assistance. I also suggested she detach from the tube and keep the mas k on when getting up to make putting it back on easier. She agrees to work on these things. I ordered the titration study again. I have asked it be scheduled as a 1:1 since she needs some assistance getting up to the bathroom at night. I provided greater than 30 minutes in th e care of this patient, more than half the time was spent in wheu-zl-eetr counseling. ? BIPAP titration study - On e on one with Ying, start BiPAP at 8/4 cm add 02 for persistent hypoxemia once obstruc tive events resolved. Have someone from the [facility] make sure she gets her QHS meds be fore coming in. Discussion Note: None recorded.Patient educational handouts: No information available. Plan of Care Reminders Provider Appointments Office 30 07/26/2020 Nacho Camacho, 11:00AM MAILMASTER Lab None ? ? recorded. Referral None ? ? recorded. Procedures None ? ? recorded. Surgeries None ? ? recorded. Imaging None ? ? recorded. Medications Name Start Date ? ? clozapine 200 mg tablet ? Take 1 tablet twice a day by oral route. Combivent Respimat 20 mcg-100 mcg/actuation solution f or inhalation ? Inhale 1 puff 4 times a day by inhalation route. ferrous sulfate 324 mg (65 mg iron) tablet,delayed rel ease ? Take by oral route. glimepiride 2 mg tablet ? Take 1 tablet every day by oral route. Lantus Solostar U-100 Insulin ? lisinopril 10 mg tablet ? Take 1 tablet every day by oral route. metformin 1,000 mg tablet ? Take 1 tablet twice a day by oral route. Miralax 17 gram oral powder packet ? Take 1 packet every day by oral route. Motrin ? multivitamin ? niacin (inositol niacinate) 500 mg tablet ? Take by oral route. nicotine 21 mg/24 hr daily transdermal patch ? Apply 1 patch every day by transdermal route. Nicotrol 10 mg inhalation cartridge ? Inhale by inhalation route. Novolog Flexpen U-100 Insulin ? Pravachol 40 mg tablet ? Take 1 tablet every day by oral route. Proair Digihaler 90 mcg/actuation aerosol powder breat h act, sensor ? Inhale 2 puffs every 4 hours by inhalation route. Symbicort 160 mcg-4.5 mcg/actuation HFA aerosol inhale r ? Inhale 2 puffs twice a day by inhalation route. Medications Administered None recorded. Vitals Height Weight BMI Blood Pressure 5 ft 1 in 153 lbs 28.9 kg/m2 146/93 mm[Hg] Results Lab Results None recorded. Allergies Code Code System Name Reaction Severity Onset 6448 RxNorm [place] ? ? ? 106883 RxNorm Oxycontin ? ? ? Penicillins ? ? ? 71185 RxNorm Percocet ? ? ? 78878 RxNorm Pioglitazone ? ? ? 5440 RxNorm Prednisone ? ? ? Sulfa (Sulfonamide ? ? ? Antibiotics) 65231 RxNorm Tramadol ? ? ? Problems Name Status Onset Date Source ? Type 2 Diabetes Mellitus Active 07/27/2019 ? Schizophrenia Active 07/27/2019 ? Obstructive Sleep Apnea Syndrome Active 07/27/2019 ? Parkinson's Disease Active 07/27/2019 ? 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 Heart Disease Active 07/27/2019 ? Pulmonary Emphysema Active 07/27/2019 ? Gastroesophageal Reflux Disease Active 07/27/2019 ? Dysphagia Active 07/27/2019 ? Procedures None recorded. Vaccine List None recorded. Social History Tobacco Smoking Status Former Smoker (2 PPD) Notes: quit 2018 Alcohol intake None Live alone or with others? with others Notes: in fpc Animal exposure? Y Notes: cat Are you currently employed? N Blind or serious difficulty Y Notes: we ars glasses seeing Hard of hearing or deaf in one N or both ears? Caffeine intake Occasional Notes: drinks cof fee all day Tobacco-years of use 40 Functional Status Blind or serious Yes difficulty seeing? Past Encounters 04/19/2020 Obstructive Sleep Apnea Syndrome Regina Camacho, MAILMASTER: [address] [place] [phone], Ph. History of Present Illness Note: <p>Danette Shook has a visit for AVANI follow-up. She resides at the [facility] and was accompanied by a staff member from the [facility].</p><p>
</p><p>Danette had a visit with me on 10/04/19. She has a medical history to include schizophrenia, early onset alzheimers, DM, parkinsonism, COPD, dysphagia, GERD, HLD, LBBB and AVANI. HST through [facility] 02/21/15 (BMI 41), AHI16/hr, sp02 munir 73%. Titration 04/13/15 (BMI 41), CPAP 7 cm not tolerated, BiPAP 8/4 cm was successful in lateral sleep. BiPAP 9/4/4 cm recommended. Labs 07/05/19 CBC RBC 3.8. 05/23/19 BMP glucose 112, Mg 1.6. Danette had recently had a change in mental status and her psychiatrist recommended a CPAP titration to evaluate for possible C02 retention contributing to this. Last visit she was using BiPAP 9/4/4 cm with an Airfit F20 and feeling better rested but she was not always getting her BiPAP on after she uses the bathroom so the night aides were going to be asked to help her with this. I ordered atitration study but was later informed she could not come in for this as she needs assistance and due to insurance purposes someone from the [facility] was not able to stay with her.</p><p>
</p><p>Danette tells me things are good with the BiPAP and she likes her BiPAPand she wakes feeling more refreshed. She is not aware of any air leaks with her mask. She goes bed at 7-8 pm and gets up around 2 am and removes her BiPAP to go to the bathroom and forgets to put itback on. The BiPAP air pressure feels ok. </p><p>
</p><p>ESS today /24</p><p>
</p><p>COMPLIANCE REVIEW: {{03/19/20-04/17/20# DATES}}, Used{{19# 25 30}}/30 days, average use {{1# 5 6}} hours {{52# number}} minutes a night, 95 th percentile IPAP pressure {{8.6# 8 9}}cm, 95 th percentile EPAP pressure {{4.6# 9 10}}cm, 95 th percentile air leak {{58.1# 5 10}} lpm, AHI {{4.9# 1 2}}/hour.</p>Review of Systems: ROS as noted in the HPI Review of Systems None recorded. Physical Exam ? Notes: <p>General: A&O, well groome d {{over weight * obese morbidly obese normal weight thin}}.
HEAD: no rmocephalic & atraumatic.
EYES: non icteric.
LUNGS: CTA all f ields. Good air movement.
CARDIO: RRR with 3/6 systolic murmur. No gallop o r thrill.
NEURO: A&O. Wheelchair bound.
PSYCH: Normal mood and affect.
CUTANEOUS: no overt lesions or rashes</p>
== END 2020-06-01 10:21 | disposition home or self-care (01) ==
LOC: LBN 10:20
PROVIDERS: PCP Family Medicine; Visit Provider Family Medicine
DX: F31.5 Bipolar disorder, current episode depressed, severe, with psychotic features (principal); F60.1 Schizoid personality disorder; Z79.899 Other long term (current) drug therapy
CPT/HCPCS: 85025

== ENCOUNTER 2020-06-28 14:49 | Outpatient (REF) | payer MEDICARE, MEDICAID, SELFPAY ==
[2020-06-28 15:29] LABS: Abs Immature Grans 0.09 10^3/uL (0.0-0.06); Absolute Basophil Count 0.05 10^3/uL (0.0-0.2); Absolute Eosinophil Count 0.17 10^3/uL (0.0-0.7); Absolute Lymphocyte Count 3.68 10^3/uL (1.2-3.4); Absolute Monocyte Count 0.73 10^3/uL (0.1-0.8); Absolute Neutrophil Count 4.73 10^3/uL (1.2-6.7); Basophils % 0.5; Eosinophils % 1.8; HCT 31.7 % (36.0-46.0); HGB 10.5 g/dL (11.2-15.7); Lymphocytes % 38.9; MCHC 33.1 % (32.0-36.0); MCV 93.5 fL (80-95); Monocytes % 7.7; Neutrophils % 50.1; Nucleated RBC 0 %; Platelet Count 251 10^3/uL (130-400); RBC 3.39 10^6/uL (3.93-5.22); RDW 13.3 % (11.7-14.6); RDW-SD 45.6 fL; WBC 9.45 10^3/uL (4.4-10.8)
== END 2020-06-28 14:50 | disposition home or self-care (01) ==
LOC: LBN 14:49
PROVIDERS: PCP Family Medicine; Visit Provider Family Medicine
DX: F31.5 Bipolar disorder, current episode depressed, severe, with psychotic features (principal); F60.1 Schizoid personality disorder; F41.1 Generalized anxiety disorder; Z79.899 Other long term (current) drug therapy
CPT/HCPCS: 85025

== ENCOUNTER 2020-07-25 20:22 | Outpatient (REF) | payer MEDICARE, MEDICAID, SELFPAY ==
[2020-07-25 20:42] LABS: Anion Gap 10.1 mmol/L (3-11); BUN 16 mg/dL (7-18); CO2 29.9 mmol/L (21.0-32.0); Calcium 8.6 mg/dL (8.5-10.1); Chloride 100 mmol/L (98-107); Estimated GFR 57.78 (mL/min/1.73m2); Glucose 187 mg/dL (74-106); Potassium 3.6 mmol/L (3.5-5.1); Sodium 140 mmol/L (136-145)
== END 2020-07-25 20:23 | disposition home or self-care (01) ==
LOC: LBN 20:22
PROVIDERS: PCP Family Medicine; Visit Provider Family Medicine
DX: R50.9 Fever, unspecified (principal); R09.81 Nasal congestion
CPT/HCPCS: 80048; 85025

== ENCOUNTER 2020-07-26 18:45 | Outpatient (REF) | payer MEDICARE, MEDICAID, SELFPAY ==
[2020-07-26 17:51] LABS: Abs Immature Grans 0.04 10^3/uL (0.0-0.06); Absolute Basophil Count 0.03 10^3/uL (0.0-0.2); Absolute Lymphocyte Count 1.95 10^3/uL (1.2-3.4); Absolute Monocyte Count 0.91 10^3/uL (0.1-0.8); Basophils % 0.3; HCT 32.4 % (36.0-46.0); HGB 10.4 g/dL (11.2-15.7); Immature Grans % 0.5; Lymphocytes % 22.1; MCH 31.4 pg (27.0-33.0); MCHC 32.1 % (32.0-36.0); MCV 97.9 fL (80-95); MPV 10.7 fL (8.0-11.0); Monocytes % 10.3; Neutrophils % 66.8; Nucleated RBC 0 %; Platelet Count 203 10^3/uL (130-400); RBC 3.31 10^6/uL (3.93-5.22); RDW 14.4 % (11.7-14.6); RDW-SD 51.9 fL; WBC 8.83 10^3/uL (4.4-10.8)
[2020-07-26 17:57] LABS: Bilirubin Negative (Negative); Blood Negative (Negative); Clarity Sl Cloudy (Clear); Glucose Negative (Negative); Ketones Negative (Negative); Leukocyte Esterase Small (Negative); Nitrite Negative (Negative); Specific Gravity <= 1.005 (1.005-1.025); Urobilinogen 0.2 EU/dL (Up TO 0.2); pH 6.5 (5-8)
[2020-07-26 18:09] LABS: Bacteria Many HPF (Negative); C & S Indicated? C&S Done As Ordered; Casts Negative LPF (Negative); Crystals Negative HPF (Negative); Epithelial Cells Few HPF (Negative); Mucus Negative (Negative); RBC 0-2 HPF (0-2)
[2020-07-26 18:10] LABS: Hemoglobin A1C 7.1 % (<5.7)
[2020-07-26 18:23] LABS: Anion Gap 9.7 mmol/L (3-11); BUN 21 mg/dL (7-18); CO2 31.3 mmol/L (21.0-32.0); Calcium 8.8 mg/dL (8.5-10.1); Chloride 102 mmol/L (98-107); Estimated GFR 57.78 (mL/min/1.73m2); Ferritin 179 ng/mL (8-252); Glucose 184 mg/dL (74-106); Magnesium 1.7 mg/dL (1.8-2.4); Potassium 3.9 mmol/L (3.5-5.1); Sodium 143 mmol/L (136-145); TSH (W/Ref FT4) 0.21 uIU/mL (0.36-3.74)
[2020-07-26 18:42] LABS: FREE T4 1.37 ng/dL (0.76-1.46); NT-proBNP 1925 pg/mL (<300)
== END 2020-07-26 18:46 | disposition home or self-care (01) ==
LOC: LBN 18:45
PROVIDERS: PCP Family Medicine; Visit Provider Family Medicine
DX: E11.40 Type 2 diabetes mellitus with diabetic neuropathy, unspecified (principal); R53.83 Other fatigue; R50.9 Fever, unspecified; F31.5 Bipolar disorder, current episode depressed, severe, with psychotic features; G21.8 Other secondary parkinsonism; M62.81 Muscle weakness (generalized); Z51.81 Encounter for therapeutic drug level monitoring; Z79.899 Other long term (current) drug therapy; I50.9 Heart failure, unspecified
CPT/HCPCS: 80048; 87077; 80164; 81003; 81015; 82728; 83036; 83735; 83880; 84439; 84443; 85025; 87086; 87186

== ENCOUNTER 2020-07-27 13:00 | Outpatient (CLI) | payer MEDICARE, MEDICAID, SELFPAY ==
--- NOTE | 2020-07-27 | DI.RAD_ITS ---
Exam(s) XR CHEST 2V PA LATERAL EXAM: XR CHEST 2V PA LATERAL CLINICAL HISTORY: CHF TECHNIQUE: COMPARISON: CR XR CHEST 2V PA LATERAL from 01/13/2020 FINDINGS: The heart is not enlarged. There is minimal linear scarring or atelectasis in left mid lung, otherwi se lungs appear clear. No pleural effusion seen. IMPRESSION: No evidence of acute process. RADIATION DOSE DELIVERED: Total DLP
== END 2020-07-27 13:20 ==
PROVIDERS: PCP Family Medicine; Visit Provider Nurse Practitioner Gerontology
DX: I50.9 Heart failure, unspecified (principal); J98.4 Other disorders of lung
CPT/HCPCS: 71046

== ENCOUNTER 2020-08-20 18:47 | Outpatient (REF) | payer MEDICARE, MEDICAID, SELFPAY ==
[2020-08-20 20:09] LABS: Abs Immature Grans 0.04 10^3/uL (0.0-0.06); Absolute Basophil Count 0.03 10^3/uL (0.0-0.2); Absolute Lymphocyte Count 2.77 10^3/uL (1.2-3.4); Absolute Monocyte Count 0.79 10^3/uL (0.1-0.8); Absolute Neutrophil Count 4.87 10^3/uL (1.2-6.7); Basophils % 0.4; HCT 34.9 % (36.0-46.0); Immature Grans % 0.5; Lymphocytes % 32.6; MCH 31.7 pg (27.0-33.0); MCHC 31.5 % (32.0-36.0); MCV 100.6 fL (80-95); Monocytes % 9.3; Neutrophils % 57.2; Nucleated RBC 0 %; Platelet Count 185 10^3/uL (130-400); RBC 3.47 10^6/uL (3.93-5.22); RDW 13.6 % (11.7-14.6); RDW-SD 50.4 fL
[2020-08-20 20:32] LABS: TSH (W/Ref FT4) 0.39 uIU/mL (0.36-3.74)
== END 2020-08-20 18:48 | disposition home or self-care (01) ==
LOC: LBN 18:47
PROVIDERS: PCP Family Medicine; Visit Provider Family Medicine
DX: E03.9 Hypothyroidism, unspecified (principal); F41.1 Generalized anxiety disorder; F31.5 Bipolar disorder, current episode depressed, severe, with psychotic features; Z79.899 Other long term (current) drug therapy; M62.81 Muscle weakness (generalized)
CPT/HCPCS: 84443; 85025

== ENCOUNTER 2020-08-27 00:49 | Outpatient (CLI) | payer MEDICARE, MEDICAID, SELFPAY ==
--- NOTE | 2020-08-27 | DI.US_ITS ---
Exam(s) US RENAL EXAM: US RENAL CLINICAL HISTORY: H/O STONES,UTI TECHNIQUE: Ultrasound of both kidneys performed using standard protocol. COMPARISON: CT CT CHEST PE ABD PELVIS W from 02/01/2020 MR MR ABDOMEN WO/W from 02/14/2020 FINDINGS: RIGHT KIDNEY: Right kidney is again noted to be atrophic, as was evident on MRI study of February 0. Measures 6 cm in length. No cysts evident. Normal cortical thickness and corticomedullary differentia tion .No solid masses No intrarenal calculi nor hydronephrosis. LEFT KIDNEY: Measures 11.8 cm in length. No cysts evident. Column of Oleg noted in left kidney. No obvious calc sherron nor hydronephrosis. The calculus seen in the upper pole region left kidney on the prior CT scan o f January 2020 is not seen on today's ultrasound. URINARY BLADDER: Prevoid volume is 23 cc Postvoid volume is unable to void cc Cannot adequately assess for bladder masses Ureterovesical jets: Both identified and appear symmetrical IMPRESSION: 1. Atrophic right kidney again noted. 2. Normal-appearing left kidney. The calculus in left kidney on the recent CT scan of January 2020 was not able to be delineated on today's ultrasound. There is no hydronephrosis. Urinary bladder is not adequately distended to assess for urinary wall masses. DATA REPOSITORY:
== END 2020-08-27 01:09 ==
PROVIDERS: PCP Family Medicine; Visit Provider Nurse Practitioner Gerontology
DX: N26.1 Atrophy of kidney (terminal) (principal); N39.0 Urinary tract infection, site not specified; Z87.442 Personal history of urinary calculi
CPT/HCPCS: 76770

== ENCOUNTER 2020-09-27 14:30 | Outpatient (REF) | payer MEDICARE, MEDICAID, SELFPAY ==
[2020-09-27 13:04] LABS: Abs Immature Grans 0.05 10^3/uL (0.0-0.06); Absolute Basophil Count 0.05 10^3/uL (0.0-0.2); Absolute Eosinophil Count 0.14 10^3/uL (0.0-0.7); Absolute Lymphocyte Count 2.73 10^3/uL (1.2-3.4); Absolute Monocyte Count 0.44 10^3/uL (0.1-0.8); Absolute Neutrophil Count 3.62 10^3/uL (1.2-6.7); Basophils % 0.7; HCT 37.4 % (36.0-46.0); HGB 11.6 g/dL (11.2-15.7); Immature Grans % 0.7; Lymphocytes % 38.8; MCH 30.9 pg (27.0-33.0); MCV 99.5 fL (80-95); MPV 10.8 fL (8.0-11.0); Monocytes % 6.3; Neutrophils % 51.5; Nucleated RBC 0 %; Platelet Count 228 10^3/uL (130-400); RBC 3.76 10^6/uL (3.93-5.22); RDW 13.6 % (11.7-14.6); RDW-SD 49.2 fL; WBC 7.03 10^3/uL (4.4-10.8)
[2020-09-27 13:26] LABS: Calculated LDL 29 mg/dL (<100); Cholesterol 155 mg/dL (<200); HDL Cholesterol 49 mg/dL (40-60); TSH (W/Ref FT4) 2.67 uIU/mL (0.36-3.74); Triglyceride 388 mg/dL (<150)
== END 2020-09-27 14:31 | disposition home or self-care (01) ==
LOC: LBN 14:30
PROVIDERS: PCP Family Medicine; Visit Provider Nurse Practitioner Gerontology
DX: E05.90 Thyrotoxicosis, unspecified without thyrotoxic crisis or storm (principal); E78.5 Hyperlipidemia, unspecified; Z79.899 Other long term (current) drug therapy
CPT/HCPCS: 80061; 84443; 85025

== ENCOUNTER 2020-10-22 09:14 | Outpatient (CLI) | payer MEDICARE, MEDICAID, SELFPAY ==
--- NOTE | 2020-10-22 | DI.RAD_ITS ---
Exam(s) XR CHEST 2V PA LATERAL EXAM: XR CHEST 2V PA LATERAL CLINICAL HISTORY: FEVER. TECHNIQUE: 2D digital imaging was performed. COMPARISON: CR XR CHEST 2V PA LATERAL from 01/13/2020 CR XR CHEST 2V PA LATERAL from 01/13/2020 CR XR CHEST 2V PA LATERAL from 07/27/2020 CR XR CHEST 2V PA LATERAL from 07/27/2020 FINDINGS: Heart size is normal. The mediastinum is not widened. There is a significant area of infiltrate in the right upper lobe now evident. Scarring or atelectasis in the mid left lung is unchanged. There are no pleural effusions. IMPRESSION: Significant infiltrate in the right upper lobe now evident. This measures approximately 5 x 4 cm. N o pleural effusions. Sent as stat read. DATA REPOSITORY: RADIATION DOSE DELIVERED:
== END 2020-10-22 09:34 ==
PROVIDERS: PCP Family Medicine; Visit Provider Nurse Practitioner Gerontology
DX: U07.1 COVID-19 (principal); G30.0 Alzheimer's disease with early onset; R91.8 Other nonspecific abnormal finding of lung field
CPT/HCPCS: 71046

== ENCOUNTER 2020-10-22 14:53 | Outpatient (REF) | payer MEDICARE, MEDICAID, SELFPAY ==
[2020-10-22 15:36] LABS: Abs Immature Grans 0.07 10^3/uL (0.0-0.06); Absolute Basophil Count 0.05 10^3/uL (0.0-0.2); Absolute Lymphocyte Count 2.58 10^3/uL (1.2-3.4); Absolute Monocyte Count 0.73 10^3/uL (0.1-0.8); Absolute Neutrophil Count 4.51 10^3/uL (1.2-6.7); Basophils % 0.6; Eosinophils % 2.5; HCT 36.3 % (36.0-46.0); HGB 11.1 g/dL (11.2-15.7); Immature Grans % 0.9; Lymphocytes % 31.7; MCH 30.6 pg (27.0-33.0); MCHC 30.6 % (32.0-36.0); Neutrophils % 55.3; Nucleated RBC 0 %; Platelet Count 290 10^3/uL (130-400); RBC 3.63 10^6/uL (3.93-5.22); RDW 13.6 % (11.7-14.6); WBC 8.14 10^3/uL (4.4-10.8)
[2020-10-22 15:54] LABS: Anion Gap 14.6 mmol/L (3-11); BUN 21 mg/dL (7-18); CO2 28.4 mmol/L (21.0-32.0); Calcium 9.4 mg/dL (8.5-10.1); Chloride 100 mmol/L (98-107); Estimated GFR 57.56 (mL/min/1.73m2); Glucose 136 mg/dL (74-106); Potassium 3.9 mmol/L (3.5-5.1); Sodium 143 mmol/L (136-145)
== END 2020-10-22 14:54 | disposition home or self-care (01) ==
LOC: LBN 14:53
PROVIDERS: PCP Family Medicine; Visit Provider Internal Medicine
DX: R50.9 Fever, unspecified (principal); R05 Cough; R68.89 Other general symptoms and signs
CPT/HCPCS: 80048; 85025

== ENCOUNTER 2020-10-31 01:02 | Outpatient (CLI) | payer MEDICARE, MEDICAID, SELFPAY ==
--- NOTE | 2020-10-31 | DI.RAD_ITS ---
Exam(s) XR CHEST 2V PA LATERAL EXAM: XR CHEST 2V PA LATERAL CLINICAL HISTORY: F/U CXR, PREV 10/22 SHOWED SIGNIFICANT INFILTRATE RT UPPER LOBE. TECHNIQUE: 2D digital imaging was performed. COMPARISON: CR XR CHEST 2V PA LATERAL from 10/22/2020 FINDINGS: Heart size is normal. The mediastinum is not widened. Lungs are clear. No infiltrates nor pleural effusions. IMPRESSION: No acute pulmonary findings. DATA REPOSITORY: RADIATION DOSE DELIVERED:
== END 2020-10-31 01:22 ==
PROVIDERS: PCP Family Medicine; Visit Provider Nurse Practitioner Gerontology
DX: R91.8 Other nonspecific abnormal finding of lung field (principal)
CPT/HCPCS: 71046

== ENCOUNTER 2020-11-11 15:52 | Outpatient (REF) | payer MEDICARE, MEDICAID, SELFPAY ==
[2020-11-11 16:14] LABS: Abs Immature Grans 0.05 10^3/uL (0.0-0.06); HCT 31.7 % (36.0-46.0); MCH 30.7 pg (27.0-33.0); MCHC 31.5 % (32.0-36.0); MCV 97.2 fL (80-95); MPV 11.6 fL (8.0-11.0); RBC 3.26 10^6/uL (3.93-5.22); RDW 15.5 % (11.7-14.6); RDW-SD 55.3 fL; WBC 7.85 10^3/uL (4.4-10.8)
[2020-11-11 16:25] LABS: Platelet Count 131 10^3/uL (130-400)
[2020-11-11 16:33] LABS: Anion Gap 9.4 mmol/L (3-11); BUN 40 mg/dL (7-18); CO2 27.6 mmol/L (21.0-32.0); CREATININE 1.3 mg/dL (0.55-1.02); Calcium 8.2 mg/dL (8.5-10.1); Chloride 103 mmol/L (98-107); Estimated GFR 42.53 (mL/min/1.73m2); Glucose 144 mg/dL (74-106); Potassium 4.1 mmol/L (3.5-5.1); Sodium 140 mmol/L (136-145)
[2020-11-11 17:33] LABS: Absolute Neutrophil Count 5.02 10^3/uL (1.2-6.7); Bands % 36
[2020-11-11 17:34] LABS: Absolute Lymphocyte Count 1.81 10^3/uL (1.2-3.4); Absolute Monocyte Count 1.02 10^3/uL (0.1-0.8); Diff Comment Manual Differential; Nucleated RBC 1 %
[2020-11-11 17:35] LABS: Polychromasia Present
== END 2020-11-11 15:53 | disposition home or self-care (01) ==
LOC: LBN 15:52
PROVIDERS: PCP Family Medicine; Visit Provider Nurse Practitioner Gerontology
DX: R11.2 Nausea with vomiting, unspecified (principal)
CPT/HCPCS: 80048; 85025

== ENCOUNTER 2020-11-14 01:42 | Outpatient (CLI) | payer MEDICARE, MEDICAID, SELFPAY ==
--- NOTE | 2020-11-14 | DI.RAD_ITS ---
Exam(s) XR ABDOMEN FLAT PLATE EXAM: XR ABDOMEN FLAT PLATE CLINICAL HISTORY: VOMITING,R11.10. TECHNIQUE: 2D digital imaging was performed. COMPARISON: No exams were available for comparison FINDINGS: Single AP supine view the abdomen reveals numerous air-filled dilated small bowel loops. Recommend u pright view to rule out the bowel obstruction and to rule out the possibility of free air. There cortes s appear to be some air in the splenic flexure of the colon and rectum. Regional bones unremarkable. Calcifications noted in the splenic artery in the left upper quadrant. IMPRESSION: I ileus versus bowel obstruction. Recommend upright view. Alternatively CT scan DATA REPOSITORY: RADIATION DOSE DELIVERED:
--- NOTE | 2020-11-14 | DI.RAD_ITS ---
Exam(s) XR CHEST 2V PA LATERAL EXAM: XR CHEST 2V PA LATERAL CLINICAL HISTORY: VOMITING,SYSTEMIC INFLAMMATORY RESPONSE SYNDROME,R65.10 TECHNIQUE: 2D digital imaging was performed. COMPARISON: CR XR CHEST 2V PA LATERAL from 10/31/2020 FINDINGS: Heart size is within normal limits. Lungs are suboptimally inflated. There is question of a patchy infiltrate in the right upper lobe. Minimal basilar densities could represent atelectasis. No effus ions are seen. No pneumothorax. IMPRESSION: Question right upper lobe infiltrate. Poor pulmonary inflation. DATA REPOSITORY: RADIATION DOSE DELIVERED:
== END 2020-11-14 02:02 ==
PROVIDERS: PCP Family Medicine; Visit Provider Hospitalist
DX: R11.10 Vomiting, unspecified (principal); R65.10 Systemic inflammatory response syndrome (SIRS) of non-infectious origin without acute organ dysfunction; R91.8 Other nonspecific abnormal finding of lung field; R93.5 Abnormal findings on diagnostic imaging of other abdominal regions, including retroperitoneum
CPT/HCPCS: 71046; 74018

== ENCOUNTER 2020-11-15 12:19 | Inpatient (IN) | payer MEDICARE, MEDICAID, SELFPAY ==
[2020-11-15] VITALS (9 sets, daily range): BP systolic 99–120; BP diastolic 58–76; PULSE 63–87; RESP 16–26; TEMP 35.7–36.1; O2SAT 95–98
--- NOTE | 2020-11-15 12:45 | DI.CT_ITS ---
Exam(s) CT CHEST/ABD/PEL W EXAM: CT CHEST/ABD/PEL W CLINICAL HISTORY: ABDOMINAL PAIN, VOMITING, AMS, FALL. TECHNIQUE: Imaging Protocol: Axial computed tomography images with coronal and sagittal reformatted images were created and reviewed CONTRAST MATERIAL: Intravenous: Omnipaque 350 Contrast volume:100 ml Oral: None COMPARISON: CT CT CHEST PE ABD PELVIS W from 02/01/2020 CR XR CHEST 2V PA LATERAL from 11/14/2020 CR XR CHEST 2V PA LATERAL from 11/14/2020 FINDINGS: CHEST: LUNGS: There is now a significant area of infiltrate in the posterior segment of the right upper lobe , not evident on the prior January 2020 study. Also some patchy infiltrate in the right lower lobe basal segments. No pleural effusions. In the opposite-left lung there is some mild infiltrate-atele ctasis in the upper lobe which is unchanged from the prior study. No new findings in the left lower lobe. No pleural effusion. There are no new significant focal findings in the trachea. Some mucus is seen at the carinal level. MEDIASTINUM: There is no hilar nor mediastinal adenopathy. Visualized thyroid unremarkable.No evidenc e of mediastinal hematoma, given the trauma history. CARDIAC: Heart size upper normal. No pericardial effusion.Caliber of the thoracic aorta is within no rmal limits. OSSEOUS: No significant osseous lesions.. ABDOMEN: There is no ascites. LIVER: Liver is again noted be quite hypodense implying severe steatosis. There are no discrete foca l hepatic lesions identified. Left hepatic lobe is again noted to insert coli upper aspect of the sp hanane, this being a variant of normal. GALLBLADDER/BILIARY: No obvious gallbladder pathology. CBD is not dilated. PANCREAS: Again noted is a previously described cystic lesion in the anterior aspect of the pancreas at junction of body and tail, not increased in size from January 2020, measuring 10 x 6 millimeters, consistent with a cyst or intra pancreatic cystic neoplasm. Pancreatic duct is not dilated. There is no peripancreatic fluid. SPLEEN: Spleen is not enlarged. There are no intrasplenic lesions. Splenic and portal veins are doe nt. ADRENALS: Nodular thickening of the left adrenal gland is again, unchanged KIDNEYS: There is again noted a 4 millimeter nonobstructive calculus in left kidney.. No hydronephro sis. No other focal left kidney findings. The right kidney is again noted be somewhat atrophic was cortical scarring. Does not contain calculi in the kidney nor in the renal pelvis and the right uret er is not dilated. No calculi evident in the urinary bladder. ABDOMINAL AORTA: Somewhat atherosclerotic but not enlarged. No para-aortic adenopathy. The distal a bdominal aorta and common iliac arteries are heavily calcified but not enlarged. The inferior mesent hasmukh artery is noted to be patent. LYMPH NODES: There is no retroperitoneal nor paraaortic adenopathy. ABDOMINAL WALL: No evidence of significant anterior abdominal wall hernia. GI: There is some thickening of the stomach and duodenal wall and there also prominent jejunal loops measuring up to 3 cm. More distal small bowel loops exhibit normal caliber. PELVIS: LYMPH NODES: There is no intrapelvic nor inguinal adenopathy. GI: No evidence of appendicitis.Redundant sigmoid which reaches significantly at of the pelvis. URINARY BLADDER: No calculi nor masses evident REPRODUCTIVE: Uterus size is normal. No abnormal adnexal masses. There is a tiny amount of free flu id in right adnexa. OSSEOUS: No significant osseous lesions. Mild anterolisthesis of L5 upon S1 pars defects at this level. No disc space narrowing. IMPRESSION: 1. Main new finding in the chest is a prominent area of infiltrate in the posterior segment of the ri ght upper lobe. There also some smaller patchy infiltrates in the right lower lobe. No pleural effu sions. Mucus is noted in the lower trachea-chelsea region. 2. Hepatic steatosis. No discrete focal hepatic lesions. Left hepatic lobe reaches to surround the spleen which is a variant of normal and was seen on the prior study. Spleen itself appears unremarka ble. 3. Heavily calcified distal abdominal aorta and iliac arteries (no aneurysm). 4. There appears to be abnormal circumferential thickening of the distal stomach and duodenum and thi ckened small bowel jejunal bowel loops in the central left side of the abdomen, ranging up to 3 cm si ze. Possible developing bowel obstruction. 5. Nonobstructive small 4 millimeter calculus in the left kidney. Atrophic partially scarred right kidney. No calculi seen in the urinary bladder. 6. pancreatic body-tail junction cystic neoplasm again noted, unchanged in size from January 2020. RADIATION DOSE DELIVERED: 1,131.84mGy.cm Total DLP DATA REPOSITORY: All CT scans at this facility are submitted to the National Radiology Data Registry (NRDR) Dose Index Registry (DIR) with the [employer] ([employer]). RADIATION OPTIMIZATION: All CT scans at this facility use at least one of these dose optimization te chniques: automated exposure control; mA and/or kV adjustment per patient size (includes targeted exa ms where dose is matched to clinical indication); or iterative reconstruction.
--- NOTE | 2020-11-15 12:45 | DI.CT_ITS ---
Exam(s) CT HEAD CERVICAL SPINE WO EXAM: CT HEAD CERVICAL SPINE WO CLINICAL HISTORY: FALL, hi< AMS. TECHNIQUE: Imaging Protocol: Axial computed tomography images with coronal and sagittal reformatted images were created and reviewed COMPARISON: CT CT HEAD WO from 04/25/2019 FINDINGS: BRAIN: The previously present opacification of left maxillary sinuses cleared. There is periosteal thickeni ng of the left maxillary sinus noted, this being a unilateral finding. There is no prominent surgica l defect. Remainder of the paranasal sinuses are clear, including the frontal sinuses. There are no skull fractures. Mastoid air cells are clear. Calcification is noted within the internal carotid arteries at the skull base as well as within the l eft vertebral artery at the skull base. There is no evidence of intracranial hemorrhage, intra or extra-axial. Symmetrical atrophy is again noted. No new significant orbital findings. Midline anterior lipoma again noted CERVICAL SPINE: There is no evidence of fracture nor listhesis. No significant prevertebral soft tissue swelling. Disc spaces exhibit normal height. Multilevel facet arthropathy. There is no significant facet joint malalignment. No significant osseous lesions evident. IMPRESSION: No acute intracranial findings on this noninfused CT scan of the brain. No evidence of cervical spine fracture, malalignment, nor acute compromise of the cervical spinal can al. RADIATION DOSE DELIVERED: 1,518.17mGy.cm Total DLP DATA REPOSITORY: All CT scans at this facility are submitted to the National Radiology Data Registry (NRDR) Dose Index Registry (DIR) with the [employer] ([employer]). RADIATION OPTIMIZATION: All CT scans at this facility use at least one of these dose optimization te chniques: automated exposure control; mA and/or kV adjustment per patient size (includes targeted exa ms where dose is matched to clinical indication); or iterative reconstruction.
--- NOTE | 2020-11-15 12:45 | RT.EKG_ITS ---
APPROVED REPORT Exam: Resting ECG Reason for Exam: [facility] Patient Location: E HR:77 bpm ECG Measurements Heart Rate 77 AXIS NV 163 P 22 QRSd 163 QRS -35 QT 463 T 138 QTc 526 Conclusion Sinus rhythm...normal P axis, V-rate 60- 99 Left bundle branch block...QRSd>120, broad/notched R ST elevation secondary to IVCD...Multiple VCG criteria. LBBB. No STEMI. No change from previous. I have reviewed and interpreted ECG and agree with software generated interpretation.
[2020-11-15 12:54] LABS: Absolute Basophil Count 0.07 10^3/uL (0.0-0.2); Basophils % 0.9; HCT 34.8 % (36.0-46.0); HGB 11.1 g/dL (11.2-15.7); Immature Grans % 3.7; Lymphocytes % 29.7; MCHC 31.9 % (32.0-36.0); MCV 97.2 fL (80-95); MPV 10.4 fL (8.0-11.0); Monocytes % 14.9; Neutrophils % 50.8; Nucleated RBC 0 %; Platelet Count 167 10^3/uL (130-400); RBC 3.58 10^6/uL (3.93-5.22); RDW 14.7 % (11.7-14.6); RDW-SD 53.3 fL; WBC 8.07 10^3/uL (4.4-10.8)
[2020-11-15 12:55] LABS: BE (Venous) 6 mmol/L (-2-3); HCO3 (Venous) 31 mmol/L (23-28); O2 Sat (Venous) 79 %; TCO2 (Venous) 29 mmol/L (24-29); pCO2 (Venous) 48 mmHg (41-51); pH (Venous) 7.42 (7.31-7.41); pO2 (Venous) 46 mmHg
[2020-11-15 13:08] LABS: Magnesium 1.7 mg/dL (1.8-2.4)
[2020-11-15] MEDS: Normal Saline 1,000 ML 500 ML IV (13:09)
[2020-11-15 13:12] LABS: ALT 15 U/L (14-59); AST 21 U/L (15-37); Albumin 2.3 g/dL (3.4-5.0); Alkaline Phosphatase 89 U/L (46-116); Anion Gap 9.3 mmol/L (3-11); BUN 34 mg/dL (7-18); Bilirubin, Total 0.4 mg/dL (0.2-1.0); CO2 30.7 mmol/L (21.0-32.0); CREATININE 1.1 mg/dL (0.55-1.02); Calcium 8.4 mg/dL (8.5-10.1); Chloride 103 mmol/L (98-107); Estimated GFR 51.57 (mL/min/1.73m2); Glucose 126 mg/dL (74-106); Lipase 40 U/L (73-393); Potassium 3.3 mmol/L (3.5-5.1); Sodium 143 mmol/L (136-145); Total Protein 6.8 g/dL (6.4-8.2)
[2020-11-15 13:15] LABS: Troponin I < 0.05 ng/mL (<0.06)
--- NOTE | 2020-11-15 13:36 | ED.GENADUL_ITS ---
Discharge Plan Disposition Patient Disposition: [facility] INPATIENT Discharge Details Chief Complaint: GenMedical Clinical Impression: Diabetes mellitus type II, controlled, Community acquired pneumonia, Dehydration, Acute metabolic encephalopathy Admit Date/Time: 11/15/20 15:50 Admit Provider: Froilan Claudio Attending Provider: Froilan Claudio Primary Care Provider: Mikayla Torres ED Provider: Anayeli Quevedo Discharge Data Discharge Date/Time-TO BE ENTERED AT DEPARTURE: 11/15/20 16:52 Medical Decision Making Patient presentation is concerning, she is very fatigued on exam although slightly less encephalopathic post IV fluids, she is clinically dehydrated She has a right upper lobe infiltrate that was treated previously with doxycycline but significantly worse per radiology interpretation Patient also have a urinary tract infection with greater than 50 white blood cells, she has prior history of resistant to fluoroquinolones and a QTC prolongation so I will initiate antibiotic, ertapenem and doxycycline Patient is alert but does have some mildly slurred speech which I am told her that time but when she is tired she sometimes slurs her speech She is alert and oriented at time of reassessment She is quite weak and will benefit from admission at this time think she is failed outpatient treatment for her pneumonia I did attempt to call her mother Marylou but she has yet to return the phone call I confirm with patient and she is her own decision maker that she has full CODE STATUS Unfortunately I did put in admission orders but neglected to call surgery, Rosa Isela Ferrari will call surgery and let surgery know that patient will need review of CT scan and possible NG tube HPI General Mode of arrival: ambulatory . Date/Time Provider Initiated Documentation: 11/15/20 12:27 . Limitations to Documentation: no limitations . Information obtained by: patient . HPI Narrative: This 55-year-old female with history of schizoaffective disorder toxic metabolic encephalopathy, electrolyte abnormality, dehydration, urinary tract infection insulin-dependent diabetes, hypothyroidism, COPD, diabetic neuropathy, secondary parkinsoNS presents with increased fatigue, intermittently slurred speech, weakness, nausea, vomiting, diarrhea since Thursday. She has not had much p.o. intake per custodial staff. States that she was on doxycycline approximately 2 weeks ago, they are unsure as to why. They deny any additional issues aside from her complaining of some abdominal discomfort today. Apparently she did have a fall this morning secondary to weakness, she did hit her head. Patient's nurse at the time states that her mentation did not change after the fall. She has been increasingly more tired over the course of the past week which is concerning for them. She was able to take her medications prior to arrival today reportedly. Denies they deny any known injuries or falls. She was not on the ground for an extended period of time after the fall. Related Data Home Medications Medication Instructions Recorded Confirmed metformin 750 mg PO QAM 10/07/18 11/15/20 budesonide-formoterol [Symbicort] 2 puff INHALATION BID 02/06/19 11/15/20 nitroglycerin 1 mg SUBLINGUAL PRN PRN 02/06/19 11/15/20 CertaVite Senior 1 tab PO DAILY 03/04/19 11/15/20 Combivent Respimat 1 puff INHALATION QID PRN 03/04/19 02/01/20 Nicotrol 1 inh INHALATION 4-6XD PRN 03/04/19 11/15/20 atorvastatin 40 mg PO QPM 03/04/19 11/15/20 clozapine 175 mg PO QAM 03/04/19 11/15/20 ergocalciferol (vitamin D2) 50,000 unit PO DIRECTED 03/04/19 11/15/20 [Vitamin D2] ferrous gluconate 324 mg PO BID 03/04/19 11/15/20 torsemide 60 mg PO DAILY 03/04/19 11/15/20 polyethylene glycol 3350 17 g PO DAILY 04/25/19 11/15/20 senna 17.2 mg PO .QHS 04/25/19 11/15/20 benztropine 1 mg tablet 1 mg PO BID 08/04/19 11/15/20 divalproex 500 mg tablet,delayed 2,000 mg PO .QHS tab 08/04/19 11/15/20 release omeprazole 20 mg capsule,delayed 20 mg PO BID 08/04/19 11/15/20 release potassium chloride 10 mEq 30 meq PO DAILY tab 08/04/19 11/15/20 tablet,extended release clozapine 275 mg PO HS 09/01/19 11/15/20 insulin aspart U-100 [Novolog 1 - 6 unit SUBCUT TID PRN 09/01/19 11/15/20 Flexpen U-100 Insulin] acetaminophen [Tylenol] 650 mg BID 02/01/20 11/15/20 magnesium chloride 128 mg PO BID 02/01/20 11/15/20 prochlorperazine maleate 10 mg PO TID PRN #7 tab 02/01/20 11/15/20 [Compazine] white petrolatum-mineral oil See Rx Instructions .ROUTE .COMPLEX 02/01/20 02/01/20 Acapella W/ [facility] 20-1934 1 applic INHALATION TID 11/15/20 albuterol sulfate 2 inh INHALATION Q4H PRN PRN 11/15/20 11/15/20 buspirone 10 mg PO TID 11/15/20 11/15/20 levothyroxine 150 mcg PO HS 11/15/20 11/15/20 olanzapine 5 mg PO DAILY 11/15/20 11/15/20 polyvinyl alcohol-povidone [Murine 1 drp OPHTHALMIC (EYE) TID 11/15/20 11/15/20 Tears] Previous Rx's Medication Instructions Recorded prochlorperazine maleate 10 mg PO TID PRN #7 tab 02/01/20 [Compazine] Allergies Allergy/AdvReac Type Severity Reaction Status Date / Time prednisone Allergy Unknown Unverified 11/15/20 12:29 lithium Allergy Unverified 11/15/20 12:29 oxycodone [From OxyContin] Allergy Unverified 11/15/20 12:29 Penicillins Allergy Unverified 11/15/20 12:29 pioglitazone Allergy Unverified 11/15/20 12:29 Sulfa (Sulfonamide Allergy Unverified 11/15/20 12:29 Antibiotics) tramadol Allergy Unverified 11/15/20 12:29 General Stated Complaint: GenMedical DIONE: 3 Review of Systems All systems reviewed & are unremarkable except as noted in HPI and below PFSH Medical History (Updated 11/17/20 @ 16:48 by BOBBY Pro) Acute kidney injury Alcoholism in remission Bipolar 1 disorder Cognitive impairment COPD (chronic obstructive pulmonary disease) Diabetes mellitus type II, controlled Diabetic neuropathy Diastolic dysfunction Falls frequently GERD (gastroesophageal reflux disease) Heart murmur History of alcohol abuse Hyperthyroidism Hypothyroid Left bundle branch block AVANI (obstructive sleep apnea) Pancreatitis Schizoaffective disorder Secondary Parkinson disease Subdural hematoma small right September 2018 2/2 mechanical fall Tobacco dependence Surgical History H/O abdominal surgery S/P thoracotomy Social History Smoking/Tobacco Use Status: Current every day Tobacco Type: cigarettes Smoking packs per day: 0.5 Smoking cigarettes per day: 10.0 Smoking risk assessment performed?: Yes Alcohol Intake: former Drug use: Never Substance use type: does not use Housing: custodial current occupation: Disabled. Lives at [facility] [place] use: always Do you feel safe at home: Yes Do you feel safe in your relationship?: Yes Additional Social history: Resident @ [facility] [employer] Exam Const General: ill appearing Orientation: alert HENMT Other: Moist mucous membranes Eyes Pupils: PERRL Neck Other: No meningismus Chest Chest: normal inspection of the chest Resp Effort & Inspection: normal respiratory effort Cardio Rate: regular rate Rhythm: regular rhythm GI Auscultation: normal bowel sounds Other: No guarding or distention, Skin General skin exam: no rashes or lesions noted Neuro General: patient alert Other: Able to follow basic commands, tired Extrem Other: Distal pulses are 2+ bilateral lower extremities Course Vital Signs Vital signs: Vital Signs Temperature 36.1 C L 11/15/20 12:23 Pulse 63 11/15/20 12:23 Respiratory Rate 16 11/15/20 12:23 Blood Pressure 99/73 L 11/15/20 12:23 Pulse Oximetry 97 11/15/20 12:23 Temperature 36.1 C L 11/15/20 12:23 Temperature Source Tympanic 11/15/20 12:23 Pulse 81 11/15/20 13:02 Pulse 81 11/15/20 13:02 Respiratory Rate 26 H 11/15/20 13:02 Respiratory Effort Non-Labored 11/15/20 12:23 Blood Pressure 99/58 L 11/15/20 13:02 Blood Pressure Mean 68 11/15/20 13:02 Blood Pressure Position Supine 11/15/20 12:23 Pulse Oximetry 95 11/15/20 13:02 Oxygen Delivery Method Room Air 11/15/20 12:23 Oxygen Flow Rate 0 11/15/20 12:23 Pain Level 10 11/15/20 12:23 Comment 11/15/20 12:23 Lab/Test Results Lab/Test Results: Laboratory Tests Range/Units 11/15/20 11/15/20 11/15/20 12:50 12:50 12:50 WBC (4.4-10.8) 10^3/uL 8.07 RBC (3.93-5.22) 10^6/uL 3.58 L Hgb (11.2-15.7) g/dL 11.1 L Hct (36.0-46.0) % 34.8 L MCV (80-95) fL 97.2 H MCH (27.0-33.0) pg 31.0 MCHC (32.0-36.0) % 31.9 L RDW (11.7-14.6) % 14.7 H Plt Count (130-400) 10^3/uL 167 MPV (8.0-11.0) fL 10.4 Immature Gran % 3.7 Neutrophils % 50.8 Lymphocytes % 29.7 Monocytes % 14.9 Eosinophils % 0.0 Basophils % 0.9 Nucleated RBC % % 0 Absolute Neutrophils (1.2-6.7) 10^3/uL 4.10 Absolute Lymphocytes (1.2-3.4) 10^3/uL 2.40 Absolute Monocytes (0.1-0.8) 10^3/uL 1.20 H Absolute Eosinophils (0.0-0.7) 10^3/uL 0.00 Absolute Basophils (0.0-0.2) 10^3/uL 0.07 VBG pH (7.31-7.41) VBG pCO2 (41-51) mmHg VBG pO2 mmHg VBG HCO3 (23-28) mmol/L VBG Total CO2 (24-29) mmol/L VBG O2 Saturation % VBG Base Excess (-2-3) mmol/L VBG Lactate (0.6-1.4) mmol/L Sodium (136-145) mmol/L 143 Potassium (3.5-5.1) mmol/L 3.3 L Chloride (98-107) mmol/L 103 Carbon Dioxide (21.0-32.0) mmol/L 30.7 Anion Gap (3-11) mmol/L 9.3 BUN (7-18) mg/dL 34 H Creatinine (0.55-1.02) mg/dL 1.1 H Estimated GFR/1.73 m2 (mL/min/1.73m2) 51.57 Glucose (74-106) mg/dL 126 H Calcium (8.5-10.1) mg/dL 8.4 L Magnesium (1.8-2.4) mg/dL 1.7 L Total Bilirubin (0.2-1.0) mg/dL 0.4 AST (15-37) U/L 21 ALT (14-59) U/L 15 Alkaline Phosphatase (46-116) U/L 89 Troponin I (<0.06) ng/mL Total Protein (6.4-8.2) g/dL 6.8 Albumin (3.4-5.0) g/dL 2.3 L Lipase (73-393) U/L 40 Range/Units 11/15/20 11/15/20 11/15/20 12:50 12:50 12:50 WBC (4.4-10.8) 10^3/uL RBC (3.93-5.22) 10^6/uL Hgb (11.2-15.7) g/dL Hct (36.0-46.0) % MCV (80-95) fL MCH (27.0-33.0) pg MCHC (32.0-36.0) % RDW (11.7-14.6) % Plt Count (130-400) 10^3/uL MPV (8.0-11.0) fL Immature Gran % Neutrophils % Lymphocytes % Monocytes % Eosinophils % Basophils % Nucleated RBC % % Absolute Neutrophils (1.2-6.7) 10^3/uL Absolute Lymphocytes (1.2-3.4) 10^3/uL Absolute Monocytes (0.1-0.8) 10^3/uL Absolute Eosinophils (0.0-0.7) 10^3/uL Absolute Basophils (0.0-0.2) 10^3/uL VBG pH (7.31-7.41) 7.42 H VBG pCO2 (41-51) mmHg 48 VBG pO2 mmHg 46 VBG HCO3 (23-28) mmol/L 31 H VBG Total CO2 (24-29) mmol/L 29 VBG O2 Saturation % 79 VBG Base Excess (-2-3) mmol/L 6 H VBG Lactate (0.6-1.4) mmol/L 1.0 Sodium (136-145) mmol/L Potassium (3.5-5.1) mmol/L Chloride (98-107) mmol/L Carbon Dioxide (21.0-32.0) mmol/L Anion Gap (3-11) mmol/L BUN (7-18) mg/dL Creatinine (0.55-1.02) mg/dL Estimated GFR/1.73 m2 (mL/min/1.73m2) Glucose (74-106) mg/dL Calcium (8.5-10.1) mg/dL Magnesium (1.8-2.4) mg/dL Total Bilirubin (0.2-1.0) mg/dL AST (15-37) U/L ALT (14-59) U/L Alkaline Phosphatase (46-116) U/L Troponin I (<0.06) ng/mL < 0.05 Total Protein (6.4-8.2) g/dL Albumin (3.4-5.0) g/dL Lipase (73-393) U/L
[2020-11-15 13:43] LABS: Bilirubin Negative (Negative); Blood Trace-intact (Negative); Clarity Sl Cloudy (Clear); Glucose Negative (Negative); Ketones Negative (Negative); Leukocyte Esterase Trace (Negative); Nitrite Positive (Negative); Specific Gravity >= 1.030 (1.005-1.025); Urobilinogen 0.2 EU/dL (Up TO 0.2)
[2020-11-15 14:00] LABS: Bacteria Many HPF (Negative); C & S Indicated? Yes; Epithelial Cells Few HPF (Negative); WBC >50 HPF (0-5)
[2020-11-15 14:25] LABS: TSH (W/Ref FT4) 0.81 uIU/mL (0.36-3.74)
[2020-11-15] MEDS: Omnipaque 350 MG/ML 100 ML BTL IJ (14:36)
[2020-11-15] MEDS: ERTAPENEM 1 GM in Normal Saline 50 ML IVPB (15:47)
[2020-11-15 16:03] LABS: Source Nasal/Nares
[2020-11-15] MEDS: DOXYCYCLINE 100 MG in Normal Saline 100 ML IVPB (16:33)
[2020-11-15 16:57] LABS: COVID-19 PCR Negative (Negative)
--- NOTE | 2020-11-15 18:03 | HPE_ITS ---
Date of service: 11/15/20 Time of Service: 18:03 Assessment and Plan Assessment and plan (1) Small bowel obstruction: Status: Suspected Assessment and plan: keep NPO, repeat KUB in the a.m.; surgical co nsultation; if she starts vomiting then will place NG. (2) Community acquired pneumonia: Status: Acute Assessment and plan: treat what probably was aspiration pneumonia w/ clindamycin and ertapenem. She has allergies to PCN and TMP/SMX Qualifiers: Laterality: right Lung location: upper lobe of lung Qualified Code(s): J18.9 - Pneumonia, unspecified organism (3) Dehydration: Status: Acute Assessment and plan: iv fluids (LR/D5/KCL), monitor urine output and electrolytes and bun, creatinine (4) Diabetes mellitus type II, controlled: Status: Acute Assessment and plan: monitor glucose q6h, cover w/ sliding scale; give D5Lr while NPO (5) COPD (chronic obstructive pulmonary disease): Status: Chronic Assessment and plan: continue her home inhalers along w/ DuoNeb aerosols and IS and acapella (6) Schizophrenia: Status: Suspected Assessment and plan: will have to hold her depakote and her clozapine while NPO but as soon as she can tolerate even a little po she should get back on her home meds Qualifiers: Schizophrenia type: undifferentiated schizophrenia Qualified Code(s): F20.3 - Undifferentiated schizophrenia (7) Hypothyroid: Status: Chronic Assessment and plan: will give half dose parenteral levothyroxine (8) DVT prophylaxis: Status: Acute Assessment and plan: heparin SC (9) Discharge planning issues: Status: Acute Assessment and plan: return to [facility] when able to tolerate po and can transition to oral antibiotics History of Present Illness History of Present Illness Chief Complaint: weakness, decreased appetite, nausea Narrative: Resident of the [facility] and is brought to the emergency department because of acute nausea and decreased appetite generalized weakness. Imaging included CXR that showed questionable RUL infiltrate and so a CT of the chest was done as well as CT of the abdomen and pelvis. CT chest demonstrated patchy infiltrates in the RUL and RLL. CT of thee abdomen was remarkable for abnormal circumferential thickening of the distal stomach and duodenum and jejunal small bowel suggestive of incipient small bowel obstruction. Patient had blood and urine cultures taken and was put on Ertapenem and doxycycline (patient has allergies to sulfa and PCN). Dr. Rachel was consulted by the ER to evaluate the CT scan for obstruction. She indicated to me that she agrees w/ radiology interpretation and recommend keeping the patient npo w/ repeat KUB in the morning and if she develops vomiting to place and NG. Patient's labs were included CBC (which was unremarkable), CMP and lipase (no abnormal LFT or lipase), BUN and creatinine that were elevated 34, 1.1. VBG that was unremarkable including normal lactate. UA was remarkable for nitrities and trace LE, over 50 WBC and many bacteria. Review of Systems Constitutional Constitutional: Reports fatigue, Denies fever(s), Reports lethargy, Reports poor appetite and Reports weakness Cardiovascular Cardiovascular: Reports system reviewed and no additional complaints, except as documented and Reports dyspnea Respiratory Respiratory: Reports cough, Denies excessive phlegm production, Denies pain on inspiration, Denies pain with cough and Reports dyspnea Gastrointestinal Gastrointestinal: Reports as per HPI, Reports abdominal pain (epigastric), Reports nausea and Denies vomiting Genitourinary Genitourinary: Reports system reviewed and no additional complaints, except as documented Musculoskeletal Musculoskeletal: Reports muscle weakness Integumentary/Breasts Skin/Breast: Reports system reviewed and no additional complaints, except as documented Neurologic Neurologic: Reports system reviewed and no additional complaints, except as documented and Reports weakness Psychiatric Psychiatric: Reports system reviewed and no additional complaints, except as documented Endocrine Endocrine: Reports fatigue Hematologic/Lymphatic Hematologic/Lymphatic: Reports system reviewed and no additional complaints, except as documented PFS Medical History (Updated 11/15/20 @ 21:25 by Froilan Claudio) Acute kidney injury Alcoholism in remission Bipolar 1 disorder Cognitive impairment COPD (chronic obstructive pulmonary disease) Diabetes mellitus type II, controlled Diabetic neuropathy Diastolic dysfunction Falls frequently GERD (gastroesophageal reflux disease) Heart murmur History of alcohol abuse Hyperthyroidism Hypothyroid Left bundle branch block AVANI (obstructive sleep apnea) Pancreatitis Schizoaffective disorder Secondary Parkinson disease Subdural hematoma small right September 2018 2/2 mechanical fall Tobacco dependence Surgical History H/O abdominal surgery S/P thoracotomy Social History Smoking/Tobacco Use Status: Current every day Tobacco Type: cigarettes Smoking packs per day: 0.5 Smoking cigarettes per day: 10.0 Smoking risk assessment performed?: Yes Alcohol Intake: former Drug use: Never Substance use type: does not use Housing: shelter current occupation: Disabled. Lives at [facility] Seatbelt use: always Do you feel safe at home: Yes Do you feel safe in your relationship?: Yes Additional Social history: Resident @ [facility] H&R Meds Allergies and Home Medications Allergies Allergy/AdvReac Type Severity Reaction Status Date / Time prednisone Allergy Unknown Unverified 11/15/20 12:29 lithium Allergy Unverified 11/15/20 12:29 oxycodone [From OxyContin] Allergy Unverified 11/15/20 12:29 Penicillins Allergy Unverified 11/15/20 12:29 pioglitazone Allergy Unverified 11/15/20 12:29 Sulfa (Sulfonamide Allergy Unverified 11/15/20 12:29 Antibiotics) tramadol Allergy Unverified 11/15/20 12:29 Home Medications Medication Instructions Recorded Confirmed Type metformin 750 mg PO QAM 10/07/18 11/15/20 History budesonide-formoterol [Symbicort] 2 puff INHALATION BID 02/06/19 11/15/20 History nitroglycerin 1 mg SUBLINGUAL PRN PRN 02/06/19 11/15/20 History CertaVite Senior 1 tab PO DAILY 03/04/19 11/15/20 History Combivent Respimat 1 puff INHALATION QID PRN 03/04/19 02/01/20 History Nicotrol 1 inh INHALATION 4-6XD PRN 03/04/19 11/15/20 History atorvastatin 40 mg PO QPM 03/04/19 11/15/20 History clozapine 175 mg PO QAM 03/04/19 11/15/20 History ergocalciferol (vitamin D2) 50,000 unit PO DIRECTED 03/04/19 11/15/20 History [Vitamin D2] ferrous gluconate 324 mg PO BID 03/04/19 11/15/20 History torsemide 60 mg PO DAILY 03/04/19 11/15/20 History polyethylene glycol 3350 17 g PO DAILY 04/25/19 11/15/20 History senna 17.2 mg PO .QHS 04/25/19 11/15/20 History benztropine 1 mg tablet 1 mg PO BID 08/04/19 11/15/20 History divalproex 500 mg tablet,delayed 2,000 mg PO .QHS tab 08/04/19 11/15/20 History release omeprazole 20 mg capsule,delayed 20 mg PO BID 08/04/19 11/15/20 History release potassium chloride 10 mEq 30 meq PO DAILY tab 08/04/19 11/15/20 History tablet,extended release clozapine 275 mg PO HS 09/01/19 11/15/20 History insulin aspart U-100 [Novolog 1 - 6 unit SUBCUT TID PRN 09/01/19 11/15/20 History Flexpen U-100 Insulin] acetaminophen [Tylenol] 650 mg BID 02/01/20 11/15/20 History magnesium chloride 128 mg PO BID 02/01/20 11/15/20 History prochlorperazine maleate 10 mg PO TID PRN #7 tab 02/01/20 11/15/20 Rx [Compazine] white petrolatum-mineral oil See Rx Instructions .ROUTE .COMPLEX 02/01/20 02/01/20 History Acapella W/ Mthpc 03-1267 1 applic INHALATION TID 11/15/20 History albuterol sulfate 2 inh INHALATION Q4H PRN PRN 11/15/20 11/15/20 History buspirone 10 mg PO TID 11/15/20 11/15/20 History levothyroxine 150 mcg PO HS 11/15/20 11/15/20 History olanzapine 5 mg PO DAILY 11/15/20 11/15/20 History polyvinyl alcohol-povidone [Murine 1 drp OPHTHALMIC (EYE) TID 11/15/20 11/15/20 History Tears] Exam Const General: cooperative, no acute distress and well developed Nutritional Appearance: average body habitus Orientation: alert, awake, oriented to person and oriented to place [facility] Head: normal to inspection and normocephalic Ears: hearing grossly normal bilaterally and external ears normal General nose exam: external nose normal Face and sinus: normal facial exam, sinuses nontender and face symmetric Mouth: oral mucosae normal, lip normal, tongue normal and oropharynx normal Neck Neck: normal visual inspection, full ROM, no lymphadenopathy, trachea midline, supple and no JVD Thyroid: thyroid normal Carotids: normal carotid upstroke Lymphatic: no lymphadenopathy noted Resp Effort & Inspection: normal respiratory effort and able to speak in complete sentences Auscultation: diminished lung sounds bilaterally in the lower lung fish, rhonchi lower bilaterally and no wheezes Cardio Jugular venous pressure: no JVD Palpation: normal PMI Rate: regular rate Rhythm: regular rhythm Heart Sounds: S1 normal and S2 normal Pulses: normal peripheral pulses GI Inspection: scar (midline ventral scar) Palpation: soft, no hepatosplenomegaly, guarding in the LUQ and other (epig astric), no hepatosplenomegaly and tender in the epigastrum Percussion: normal to percussion Auscultation: hypoactive bowel sounds Results Imaging Chest x-ray: report reviewed CT scan - chest: report reviewed CT scan - pelvis: report reviewed Imaging Studies: EXAM: CT CHEST/ABD/PEL W IMPRESSION: 1. Main new finding in the chest is a prominent area of infiltrate in the posterior segment of the right upper lobe. There also some smaller patchy infiltrates in the right lower lobe. No pleural effusions. Mucus is noted in the lower trachea-[place]sea region. 2. Hepatic steatosis. No discrete focal hepatic lesions. Left hepatic lobe reaches to surround the spleen which is a variant of normal and was seen on the prior study. Spleen itself appears unremarkable. 3. Heavily calcified distal abdominal aorta and iliac arteries (no aneurysm). 4. There appears to be abnormal circumferential thickening of the distal stomach and duodenum and thickened small bowel jejunal bowel loops in the central left side of the abdomen, ranging up to 3 cm size. Possible developing bowel o bstruction. 5. Nonobstructive small 4 millimeter calculus in the left kidney. Atrophic partially scarred right kidney. No calculi seen in the urinary bladder. 6. pancreatic body-tail junction cystic neoplasm again noted, unchanged in size from January 2020. Labs Result diagrams: 11/15/20 12:50 11/15/20 12:50 Labs: Laboratory Results - last 24 hr 11/15/20 11/15/20 11/15/20 12:47 12:50 12:50 WBC RBC Hgb Hct MCV MCH MCHC RDW Plt Count MPV Immature Gran % Neutrophils % Lymphocytes % Monocytes % Eosinophils % Basophils % Nucleated RBC % Absolute Neutrophils Absolute Lymphocytes Absolute Monocytes Absolute Eosinophils Absolute Basophils VBG pH VBG pCO2 VBG pO2 VBG HCO3 VBG Total CO2 VBG O2 Saturation VBG Base Excess VBG Lactate Sodium 143 Potassium 3.3 L Chloride 103 Carbon Dioxide 30.7 Anion Gap 9.3 BUN 34 H Creatinine 1.1 H Estimated GFR/1.73 m2 51.57 Glucose 126 H Calcium 8.4 L Magnesium 1.7 L Total Bilirubin 0.4 AST 21 ALT 15 Alkaline Phosphatase 89 Troponin I Total Protein 6.8 Albumin 2.3 L Lipase 40 TSH 0.81 Urine Color Urine Clarity Urine pH Ur Specific [place] Urine Protein Urine Ketones Urine Blood Urine Nitrite Urine Bilirubin Urine Urobilinogen Ur Leukocyte Esterase Urine RBC Urine WBC Ur Epithelial Cells Urine Crystals Urine Bacteria Urine Mucus Ur Culture Indicated? Urine Glucose COVID-19 Source SARS-CoV-2 (PCR) 11/15/20 11/15/20 11/15/20 12:50 12:50 12:50 WBC 8.07 RBC 3.58 L Hgb 11.1 L Hct 34.8 L MCV 97.2 H MCH 31.0 MCHC 31.9 L RDW 14.7 H Plt Count 167 MPV 10.4 Immature Gran % 3.7 Neutrophils % 50.8 Lymphocytes % 29.7 Monocytes % 14.9 Eosinophils % 0.0 Basophils % 0.9 Nucleated RBC % 0 Absolute Neutrophils 4.10 Absolute Lymphocytes 2.40 Absolute Monocytes 1.20 H Absolute Eosinophils 0.00 Absolute Basophils 0.07 VBG pH VBG pCO2 VBG pO2 VBG HCO3 VBG Total CO2 VBG O2 Saturation VBG Base Excess VBG Lactate 1.0 Sodium Potassium Chloride Carbon Dioxide Anion Gap BUN Creatinine Estimated GFR/1.73 m2 Glucose Calcium Magnesium Total Bilirubin AST ALT Alkaline Phosphatase Troponin I < 0.05 Total Protein Albumin Lipase TSH Urine Color Urine Clarity Urine pH Ur Specific [place] Urine Protein Urine Ketones Urine Blood Urine Nitrite Urine Bilirubin Urine Urobilinogen Ur Leukocyte Esterase Urine RBC Urine WBC Ur Epithelial Cells Urine Crystals Urine Bacteria Urine Mucus Ur Culture Indicated? Urine Glucose COVID-19 Source SARS-CoV-2 (PCR) 11/15/20 11/15/20 11/15/20 12:50 13:25 16:00 WBC RBC Hgb Hct MCV MCH MCHC RDW Plt Count MPV Immature Gran % Neutrophils % Lymphocytes % Monocytes % Eosinophils % Basophils % Nucleated RBC % Absolute Neutrophils Absolute Lymphocytes Absolute Monocytes Absolute Eosinophils Absolute Basophils VBG pH 7.42 H VBG pCO2 48 VBG pO2 46 VBG HCO3 31 H VBG Total CO2 29 VBG O2 Saturation 79 VBG Base Excess 6 H VBG Lactate Sodium Potassium Chloride Carbon Dioxide Anion Gap BUN Creatinine Estimated GFR/1.73 m2 Glucose Calcium Magnesium Total Bilirubin AST ALT Alkaline Phosphatase Troponin I Total Protein Albumin Lipase TSH Urine Color Yellow Urine Clarity Sl Cloudy Urine pH 6.0 Ur Specific [place] >= 1.030 H Urine Protein Negative Urine Ketones Negative Urine Blood Trace-intact H Urine Nitrite Positive H Urine Bilirubin Negative Urine Urobilinogen 0.2 Ur Leukocyte Esterase Trace H Urine RBC 3-5 H Urine WBC >50 H Ur Epithelial Cells Few Urine Crystals Not Applicable Urine Bacteria Many Urine Mucus Not Applicable Ur Culture Indicated? Yes Urine Glucose Negative COVID-19 Source Nasal/Nares SARS-CoV-2 (PCR) Negative Last Vital Signs Temp 35.7 C L 11/15/20 17:15 Pulse 85 11/15/20 17:15 Resp 21 11/15/20 17:22 BP 120/76 11/15/20 17:15 Pulse Ox 98 11/15/20 17:15
--- NOTE | 2020-11-15 18:15 | SCONE_ITS ---
Assessment and Plan Assessment and plan (1) Rib pain on right side: Status: Acute Assessment and plan: -mechanical SBO vs ileus keep NPO -if any vomiting, place NGT -repeat xrays in am -Continued medical care for her pneumonia and dehydration History of Present Illness Narrative: pt is a poor historian. The information is taken from the chart. amitted for pneumonia, dehydration and failure to thrive. We did review her charts in the note. c/o nausea and abdom pain as well. no vomiting. pt has had an ex lap. She does not know why. she has pain along the inferior portion of old incision. no hernias. minimal BS. CT reviewed. no free air or fluid. if she starts vomiting- place ngt. I did attempt to look her up in [facility]. They have no record of her being admitted there under this name. I was not able to find any old records on her Review of Systems Unobtainable due to mental condition [facility] Medical History Acute kidney injury Alcoholism in remission Bipolar 1 disorder Cognitive impairment COPD (chronic obstructive pulmonary disease) Diabetes mellitus type II, controlled Diabetic neuropathy Diastolic dysfunction Falls frequently GERD (gastroesophageal reflux disease) Heart murmur History of alcohol abuse Hyperthyroidism Hypothyroid Left bundle branch block AVANI (obstructive sleep apnea) Pancreatitis Schizoaffective disorder Secondary Parkinson disease Subdural hematoma small right September 2018 2/2 mechanical fall Tobacco dependence Surgical History H/O abdominal surgery S/P thoracotomy Social History Smoking/Tobacco Use Status: Current every day Tobacco Type: cigarettes Smoking packs per day: 0.5 Smoking cigarettes per day: 10.0 Smoking risk assessment performed?: Yes Alcohol Intake: former Drug use: Never Substance use type: does not use [facility] current occupation: Disabled. [facility] [place] use: always Do you feel safe at home: Yes Do you feel safe in your relationship?: Yes Additional Social history: Resident @ [facility] H&R Exam HENMT Other: no jaundice Resp Effort & Inspection: normal respiratory effort and able to speak in complete sentences Other: wheezes on left GI Other: Vertical midline scar. No hernias. Patient is tender along the inferior portion of this. She does not have rebound or guarding. She has minimal bowel sounds. Results Last Vital Signs Temp 35.7 C L 11/15/20 17:15 Pulse 85 11/15/20 17:15 Resp 21 11/15/20 17:22 BP 120/76 11/15/20 17:15 Pulse Ox 98 11/15/20 17:15 Labs Result diagrams: 11/15/20 12:50 11/15/20 12:50 Labs: Laboratory Results - last 24 hr 11/15/20 11/15/20 11/15/20 12:47 12:50 12:50 WBC RBC Hgb Hct MCV MCH MCHC RDW Plt Count MPV Immature Gran % Neutrophils % Lymphocytes % Monocytes % Eosinophils % Basophils % Nucleated RBC % Absolute Neutrophils Absolute Lymphocytes Absolute Monocytes Absolute Eosinophils Absolute Basophils VBG pH VBG pCO2 VBG pO2 VBG HCO3 VBG Total CO2 VBG O2 Saturation VBG Base Excess VBG Lactate Sodium 143 Potassium 3.3 L Chloride 103 Carbon Dioxide 30.7 Anion Gap 9.3 BUN 34 H Creatinine 1.1 H Estimated GFR/1.73 m2 51.57 Glucose 126 H Calcium 8.4 L Magnesium 1.7 L Total Bilirubin 0.4 AST 21 ALT 15 Alkaline Phosphatase 89 Troponin I Total Protein 6.8 Albumin 2.3 L Lipase 40 TSH 0.81 Urine Color Urine Clarity Urine pH Ur Specific [place] Urine Protein Urine Ketones Urine Blood Urine Nitrite Urine Bilirubin Urine Urobilinogen Ur Leukocyte Esterase Urine RBC Urine WBC Ur Epithelial Cells Urine Crystals Urine Bacteria Urine Mucus Ur Culture Indicated? Urine Glucose COVID-19 Source SARS-CoV-2 (PCR) 11/15/20 11/15/20 11/15/20 12:50 12:50 12:50 WBC 8.07 RBC 3.58 L Hgb 11.1 L Hct 34.8 L MCV 97.2 H MCH 31.0 MCHC 31.9 L RDW 14.7 H Plt Count 167 MPV 10.4 Immature Gran % 3.7 Neutrophils % 50.8 Lymphocytes % 29.7 Monocytes % 14.9 Eosinophils % 0.0 Basophils % 0.9 Nucleated RBC % 0 Absolute Neutrophils 4.10 Absolute Lymphocytes 2.40 Absolute Monocytes 1.20 H Absolute Eosinophils 0.00 Absolute Basophils 0.07 VBG pH VBG pCO2 VBG pO2 VBG HCO3 VBG Total CO2 VBG O2 Saturation VBG Base Excess VBG Lactate 1.0 Sodium Potassium Chloride Carbon Dioxide Anion Gap BUN Creatinine Estimated GFR/1.73 m2 Glucose Calcium Magnesium Total Bilirubin AST ALT Alkaline Phosphatase Troponin I < 0.05 Total Protein Albumin Lipase TSH Urine Color Urine Clarity Urine pH Ur Specific [place] Urine Protein Urine Ketones Urine Blood Urine Nitrite Urine Bilirubin Urine Urobilinogen Ur Leukocyte Esterase Urine RBC Urine WBC Ur Epithelial Cells Urine Crystals Urine Bacteria Urine Mucus Ur Culture Indicated? Urine Glucose COVID-19 Source SARS-CoV-2 (PCR) 11/15/20 11/15/20 11/15/20 12:50 13:25 16:00 WBC RBC Hgb Hct MCV MCH MCHC RDW Plt Count MPV Immature Gran % Neutrophils % Lymphocytes % Monocytes % Eosinophils % Basophils % Nucleated RBC % Absolute Neutrophils Absolute Lymphocytes Absolute Monocytes Absolute Eosinophils Absolute Basophils VBG pH 7.42 H VBG pCO2 48 VBG pO2 46 VBG HCO3 31 H VBG Total CO2 29 VBG O2 Saturation 79 VBG Base Excess 6 H VBG Lactate Sodium Potassium Chloride Carbon Dioxide Anion Gap BUN Creatinine Estimated GFR/1.73 m2 Glucose Calcium Magnesium Total Bilirubin AST ALT Alkaline Phosphatase Troponin I Total Protein Albumin Lipase TSH Urine Color Yellow Urine Clarity Sl Cloudy Urine pH 6.0 Ur Specific [place] >= 1.030 H Urine Protein Negative Urine Ketones Negative Urine Blood Trace-intact H Urine Nitrite Positive H Urine Bilirubin Negative Urine Urobilinogen 0.2 Ur Leukocyte Esterase Trace H Urine RBC 3-5 H Urine WBC >50 H Ur Epithelial Cells Few Urine Crystals Not Applicable Urine Bacteria Many Urine Mucus Not Applicable Ur Culture Indicated? Yes Urine Glucose Negative COVID-19 Source Nasal/Nares SARS-CoV-2 (PCR) Negative
[2020-11-15] MEDS: Normal Saline 1,000 ML 125 ML IV (18:24)
[2020-11-15] MEDS: MAGNESIUM SULFATE 2 GM/50 ML BAG IVPB (18:54)
[2020-11-15] MEDS: Potassium Chloride 20 MEQ TABCR 40 MEQ PO (18:55)
[2020-11-15] MEDS: Albuterol/Ipratropium 3 ML UPD VIAL UPD (19:36)
[2020-11-15] MEDS: Refresh PLUS Eye Drops 0.4ml 1 EACH OP (19:36)
[2020-11-15] MEDS: Budesonide/Formoterol 160/4.5 6 GM 60 PUFF INH IH (20:57)
[2020-11-15] MEDS: levETIRAcetam 1,000 MG in Normal Saline 100 ML 400 MG IVPB (20:57)
[2020-11-15] MEDS: POTASSIUM CHLORIDE 20 MEQ/100 ML BAG 50 MEQ IVPB (21:40)
[2020-11-15] MEDS: Heparin 5,000 UNITS/ML VIAL 5000 UNITS SC (22:42)
[2020-11-15] MEDS: Pantoprazole 40 MG VIAL IVP (22:43)
[2020-11-15] MEDS: Normal Saline Flush 10 ML SYR (22:43)
[2020-11-15] MEDS: CLINDAMYCIN 600 MG/50 ML BAG 100 MG IVPB (23:01)
[2020-11-16] VITALS (12 sets, daily range): BP systolic 111–120; BP diastolic 61–76; PULSE 70–79; RESP 2–24; TEMP 36.1–36.5; O2SAT 93–99
--- NOTE | 2020-11-16 | DI.RAD_ITS ---
Exam(s) XR ABDOMEN FLAT PLATE EXAM: XR ABDOMEN FLAT PLATE CLINICAL HISTORY: check ngt TECHNIQUE: 2D digital imaging was performed. COMPARISON: CR XR ABDOMEN FLAT UPRIGHT from 11/16/2020 FINDINGS: LUNGS: Not well inflated but clear. Clear. No pleural abnormality seen. HEART: Normal. MEDIASTINUM: Rotated film. BONES: Unremarkable. Upper abdomen: A nasogastric tube is been inserted which projects beneath the diaphragm,. The side-h ole projects near the GE junction. Consider advancing the tube by approximately 5 cm. IMPRESSION: Status post placement of NG tube. Consider advancing by 5 cm. No acute pulmonary findings. DATA REPOSITORY: RADIATION DOSE DELIVERED:
--- NOTE | 2020-11-16 | DI.RAD_ITS ---
Exam(s) XR ABDOMEN FLAT UPRIGHT EXAM: 2D digital imaging was performed. CLINICAL HISTORY: sbo. COMPARISON: CT CT CHEST/ABD/PEL W from 11/15/2020 TECHNIQUE: Supine and Lateral views of the abdomen was performed. FINDINGS: BOWEL GAS PATTERN: Dilated loops of small bowel central abdomen with air-fluid levels. No free air. CALCIFICATIONS: No radiopaque calcifications. OSSEOUS STRUCTURES: Normal for age. Lung bases clear. Residual contrast in urinary bladder related to previous CT. IMPRESSION: 1. Stable dilatation of loops of small bowel in the mid abdomen. No free air. DATA REPOSITORY: RADIATION DOSE DELIVERED:
[2020-11-16] MEDS: POTASSIUM CHLORIDE 20 MEQ/100 ML BAG 50 MEQ IVPB (01:05)
[2020-11-16] MEDS: Heparin 5,000 UNITS/ML VIAL 5000 UNITS SC ×3 (06:45→22:25)
[2020-11-16] MEDS: CLINDAMYCIN 600 MG/50 ML BAG 100 MG IVPB ×2 (06:45→15:09)
[2020-11-16 07:24] LABS: Abs Immature Grans 0.62 10^3/uL (0.0-0.06); HCT 31.5 % (36.0-46.0); HGB 9.9 g/dL (11.2-15.7); MCH 30.8 pg (27.0-33.0); MCHC 31.4 % (32.0-36.0); MCV 98.1 fL (80-95); MPV 10.3 fL (8.0-11.0); Nucleated RBC 0 %; Platelet Count 155 10^3/uL (130-400); RBC 3.21 10^6/uL (3.93-5.22); RDW 15.1 % (11.7-14.6); RDW-SD 54.5 fL; WBC 6.88 10^3/uL (4.4-10.8)
[2020-11-16 07:28] LABS: Lactate 0.6 mmol/L (0.6-1.4)
[2020-11-16 07:38] LABS: Anion Gap 8.4 mmol/L (3-11); BUN 26 mg/dL (7-18); CO2 29.6 mmol/L (21.0-32.0); CREATININE 0.9 mg/dL (0.55-1.02); Calcium 8.1 mg/dL (8.5-10.1); Chloride 111 mmol/L (98-107); Glucose 108 mg/dL (74-106); Potassium 3.7 mmol/L (3.5-5.1); Sodium 149 mmol/L (136-145)
[2020-11-16 07:39] LABS: Magnesium 1.8 mg/dL (1.8-2.4)
[2020-11-16 07:45] LABS: ALT 12 U/L (14-59); AST 17 U/L (15-37); Alkaline Phosphatase 78 U/L (46-116); Bilirubin, Direct 0.2 mg/dL (0.0-0.2); Bilirubin, Total 0.4 mg/dL (0.2-1.0); Total Protein 5.8 g/dL (6.4-8.2)
[2020-11-16 07:52] LABS: VALPROIC ACID 7.7 ug/mL
[2020-11-16 08:04] LABS: Diff Comment Manual Differential
[2020-11-16 08:05] LABS: Absolute Lymphocyte Count 2.82 10^3/uL (1.2-3.4); Absolute Neutrophil Count 3.51 10^3/uL (1.2-6.7); Bands % 8; RBC Morphology Normal
[2020-11-16 08:06] LABS: Absolute Monocyte Count 0.41 10^3/uL (0.1-0.8); Metamyelocytes % 1; Myelocytes % 1
[2020-11-16] MEDS: Normal Saline Flush 10 ML SYR ×2 (08:15→22:24)
[2020-11-16 08:20] LABS: Procalcitonin 1.2 ng/mL
--- NOTE | 2020-11-16 09:00 | PGE_ITS ---
Date of Service Date of service: 11/16/20 Time of Service: 09:00 Assessment and Plan Assessment and plan (1) Small bowel obstruction: Status: Suspected Assessment and plan: NGT NPO supportive care abx for penumonia per hosp (2) Schizoaffective disorder: Status: Acute (3) Dysphagia: Status: Resolved (4) Schizophrenia: Status: Suspected Qualifiers: Schizophrenia type: undifferentiated schizophrenia Qualified Code(s): F20.3 - Undifferentiated schizophrenia (5) Secondary Parkinson disease: Status: Acute (6) Diabetic neuropathy: Status: Acute (7) COPD (chronic obstructive pulmonary disease): Status: Chronic (8) Hypothyroid: Status: Chronic (9) Diabetes mellitus type II, controlled: Status: Acute (10) Cognitive impairment: Status: Acute (11) Falls frequently: Status: Resolved (12) UTI (urinary tract infection): Status: Resolved (13) Community acquired pneumonia: Status: Acute Qualifiers: Laterality: right Lung location: upper lobe of lung Qualified Code(s): J18.9 - Pneumonia, unspecified organism Subjective Subjective Interval history since last seen: pt is rather non-communative. She says she is thirsty. She says she is not passing gas. And she has not had a BM. Pt doesn't really give much other information. Exam Resp Effort & Inspection: normal respiratory effort and able to speak in complete sentences Cardio Rate: regular rate Rhythm: regular rhythm GI Palpation: soft, no hernias and No ascites Auscultation: absent bowel sounds Other: no peritonitis Objective Last Vital Signs Temp 36.5 C 11/16/20 04:30 Pulse 70 11/16/20 04:30 Resp 20 11/16/20 04:30 BP 111/65 11/16/20 04:30 Pulse Ox 99 11/16/20 04:30 Laboratory Results - last 24 hr 11/15/20 11/15/20 11/15/20 12:47 12:50 12:50 WBC RBC Hgb Hct MCV MCH MCHC RDW Plt Count MPV Immature Gran % Neutrophils % Band Neutrophils % Lymphocytes % Monocytes % Eosinophils % Basophils % Metamyelocytes % Myelocytes % Nucleated RBC % Absolute Neutrophils Absolute Lymphocytes Absolute Monocytes Absolute Eosinophils Absolute Basophils RBC Morphology VBG pH VBG pCO2 VBG pO2 VBG HCO3 VBG Total CO2 VBG O2 Saturation VBG Base Excess VBG Lactate Sodium 143 Potassium 3.3 L Chloride 103 Carbon Dioxide 30.7 Anion Gap 9.3 BUN 34 H Creatinine 1.1 H Estimated GFR/1.73 m2 51.57 Glucose 126 H Calcium 8.4 L Magnesium 1.7 L Total Bilirubin 0.4 Conjugated Bilirubin AST 21 ALT 15 Alkaline Phosphatase 89 Troponin I Total Protein 6.8 Albumin 2.3 L Lipase 40 Procalcitonin TSH 0.81 Urine Color Urine Clarity Urine pH Ur Specific [place] Urine Protein Urine Ketones Urine Blood Urine Nitrite Urine Bilirubin Urine Urobilinogen Ur Leukocyte Esterase Urine RBC Urine WBC Ur Epithelial Cells Urine Crystals Urine Bacteria Urine Mucus Ur Culture Indicated? Urine Glucose Valproic Acid COVID-19 Source SARS-CoV-2 (PCR) 11/15/20 11/15/20 11/15/20 12:50 12:50 12:50 WBC 8.07 RBC 3.58 L Hgb 11.1 L Hct 34.8 L MCV 97.2 H MCH 31.0 MCHC 31.9 L RDW 14.7 H Plt Count 167 MPV 10.4 Immature Gran % 3.7 Neutrophils % 50.8 Band Neutrophils % Lymphocytes % 29.7 Monocytes % 14.9 Eosinophils % 0.0 Basophils % 0.9 Metamyelocytes % Myelocytes % Nucleated RBC % 0 Absolute Neutrophils 4.10 Absolute Lymphocytes 2.40 Absolute Monocytes 1.20 H Absolute Eosinophils 0.00 Absolute Basophils 0.07 RBC Morphology VBG pH VBG pCO2 VBG pO2 VBG HCO3 VBG Total CO2 VBG O2 Saturation VBG Base Excess VBG Lactate 1.0 Sodium Potassium Chloride Carbon Dioxide Anion Gap BUN Creatinine Estimated GFR/1.73 m2 Glucose Calcium Magnesium Total Bilirubin Conjugated Bilirubin AST ALT Alkaline Phosphatase Troponin I < 0.05 Total Protein Albumin Lipase Procalcitonin TSH Urine Color Urine Clarity Urine pH Ur Specific [place] Urine Protein Urine Ketones Urine Blood Urine Nitrite Urine Bilirubin Urine Urobilinogen Ur Leukocyte Esterase Urine RBC Urine WBC Ur Epithelial Cells Urine Crystals Urine Bacteria Urine Mucus Ur Culture Indicated? Urine Glucose Valproic Acid COVID-19 Source SARS-CoV-2 (PCR) 11/15/20 11/15/20 11/15/20 12:50 13:25 16:00 WBC RBC Hgb Hct MCV MCH MCHC RDW Plt Count MPV Immature Gran % Neutrophils % Band Neutrophils % Lymphocytes % Monocytes % Eosinophils % Basophils % Metamyelocytes % Myelocytes % Nucleated RBC % Absolute Neutrophils Absolute Lymphocytes Absolute Monocytes Absolute Eosinophils Absolute Basophils RBC Morphology VBG pH 7.42 H VBG pCO2 48 VBG pO2 46 VBG HCO3 31 H VBG Total CO2 29 VBG O2 Saturation 79 VBG Base Excess 6 H VBG Lactate Sodium Potassium Chloride Carbon Dioxide Anion Gap BUN Creatinine Estimated GFR/1.73 m2 Glucose Calcium Magnesium Total Bilirubin Conjugated Bilirubin AST ALT Alkaline Phosphatase Troponin I Total Protein Albumin Lipase Procalcitonin TSH Urine Color Yellow Urine Clarity Sl Cloudy Urine pH 6.0 Ur Specific [place] >= 1.030 H Urine Protein Negative Urine Ketones Negative Urine Blood Trace-intact H Urine Nitrite Positive H Urine Bilirubin Negative Urine Urobilinogen 0.2 Ur Leukocyte Esterase Trace H Urine RBC 3-5 H Urine WBC >50 H Ur Epithelial Cells Few Urine Crystals Not Applicable Urine Bacteria Many Urine Mucus Not Applicable Ur Culture Indicated? Yes Urine Glucose Negative Valproic Acid COVID-19 Source Nasal/Nares SARS-CoV-2 (PCR) Negative 11/16/20 11/16/20 11/16/20 07:13 07:13 07:13 WBC RBC Hgb Hct MCV MCH MCHC RDW Plt Count MPV Immature Gran % Neutrophils % Band Neutrophils % Lymphocytes % Monocytes % Eosinophils % Basophils % Metamyelocytes % Myelocytes % Nucleated RBC % Absolute Neutrophils Absolute Lymphocytes Absolute Monocytes Absolute Eosinophils Absolute Basophils RBC Morphology VBG pH VBG pCO2 VBG pO2 VBG HCO3 VBG Total CO2 VBG O2 Saturation VBG Base Excess VBG Lactate Sodium 149 H Potassium 3.7 Chloride 111 H Carbon Dioxide 29.6 Anion Gap 8.4 BUN 26 H Creatinine 0.9 Estimated GFR/1.73 m2 >= 60.00 Glucose 108 H Calcium 8.1 L Magnesium 1.8 Total Bilirubin 0.4 Conjugated Bilirubin 0.2 AST 17 ALT 12 L Alkaline Phosphatase 78 Troponin I Total Protein 5.8 L Albumin 2.0 L Lipase Procalcitonin TSH Urine Color Urine Clarity Urine pH Ur Specific [place] Urine Protein Urine Ketones Urine Blood Urine Nitrite Urine Bilirubin Urine Urobilinogen Ur Leukocyte Esterase Urine RBC Urine WBC Ur Epithelial Cells Urine Crystals Urine Bacteria Urine Mucus Ur Culture Indicated? Urine Glucose Valproic Acid COVID-19 Source SARS-CoV-2 (PCR) 11/16/20 11/16/20 11/16/20 07:13 07:13 07:13 WBC 6.88 RBC 3.21 L Hgb 9.9 L Hct 31.5 L MCV 98.1 H MCH 30.8 MCHC 31.4 L RDW 15.1 H Plt Count 155 MPV 10.3 Immature Gran % See Differential Neutrophils % 43.0 Band Neutrophils % 8 Lymphocytes % 41.0 Monocytes % 6.0 Eosinophils % 0.0 Basophils % 0.0 Metamyelocytes % 1 Myelocytes % 1 Nucleated RBC % 0 Absolute Neutrophils 3.51 Absolute Lymphocytes 2.82 Absolute Monocytes 0.41 Absolute Eosinophils 0.00 Absolute Basophils 0.00 RBC Morphology Normal VBG pH VBG pCO2 VBG pO2 VBG HCO3 VBG Total CO2 VBG O2 Saturation VBG Base Excess VBG Lactate 0.6 Sodium Potassium Chloride Carbon Dioxide Anion Gap BUN Creatinine Estimated GFR/1.73 m2 Glucose Calcium Magnesium Total Bilirubin Conjugated Bilirubin AST ALT Alkaline Phosphatase Troponin I Total Protein Albumin Lipase Procalcitonin 1.2 TSH Urine Color Urine Clarity Urine pH Ur Specific [place] Urine Protein Urine Ketones Urine Blood Urine Nitrite Urine Bilirubin Urine Urobilinogen Ur Leukocyte Esterase Urine RBC Urine WBC Ur Epithelial Cells Urine Crystals Urine Bacteria Urine Mucus Ur Culture Indicated? Urine Glucose Valproic Acid 7.7 COVID-19 Source SARS-CoV-2 (PCR)
[2020-11-16] MEDS: Budesonide/Formoterol 160/4.5 6 GM 60 PUFF INH IH ×2 (09:37→22:24)
[2020-11-16] MEDS: Albuterol/Ipratropium 3 ML UPD VIAL UPD ×4 (09:38→22:25)
[2020-11-16] MEDS: Levothyroxine 100 MCG VIAL 75 MCG IVP (09:59)
[2020-11-16] MEDS: LORazepam 2 MG/ML VIAL 1 MG IVP (09:59)
[2020-11-16] MEDS: Refresh PLUS Eye Drops 0.4ml 1 EACH OP ×3 (10:00→22:25)
[2020-11-16] MEDS: ERTAPENEM 1 GM in Normal Saline 50 ML IVPB (13:34)
--- NOTE | 2020-11-16 16:08 | W.PM.PROGNOT ---
Date of Service Date of service: 11/16/20 Time of Service: 16:08 Assessment and Plan Assessment and plan (1) Small bowel obstruction: Status: Suspected Assessment and plan: Continue n.p.o. status and NG decompression. Surgical service is following along with the hospital service. We are trying conservative management. I have added Dulcolax suppository to be given now and daily to see if we can stimulate some movement from the lower GI tract. (2) Community acquired pneumonia: Status: Acute Assessment and plan: treat what probably was aspiration pneumonia w/ clindamycin and ertapenem. She has allergies to PCN and TMP/SMX. Continue supplemental oxygen as well as scheduled DuoNeb treatments. We'll add Acapella but I'm not sure that she'll cooperate for respiratory therapy for this. Qualifiers: Laterality: right Lung location: upper lobe of lung Qualified Code(s): J18.9 - Pneumonia, unspecified organism (3) Dehydration: Status: Acute Assessment and plan: iv fluids (LR/D5/KCL), monitor urine output and electrolytes and bun, creatinine. I'll have nursing place a Summers catheter is to be closely monitor urine output (4) Diabetes mellitus type II, controlled: Status: Acute Assessment and plan: monitor glucose q6h, cover w/ sliding scale; give D5Lr while NPO Qualifiers: Diabetes mellitus detention insulin use: without termite renewal inspector use Diabetes mellitus complication status: without complication Qualified Code(s): E11.9 - Type 2 diabetes mellitus without complications (5) COPD (chronic obstructive pulmonary disease): Status: Chronic Assessment and plan: continue her home inhalers along w/ DuoNeb aerosols and IS and acapella Qualifiers: COPD type: unspecified COPD Qualified Code(s): J44.9 - Chronic obstructive pulmonary disease, unspecified (6) Schizophrenia: Status: Suspected Assessment and plan: will have to hold her depakote and her clozapine while NPO but as soon as she can tolerate even a little po she should get back on her home meds Qualifiers: Schizophrenia type: undifferentiated schizophrenia Qualified Code(s): F20.3 - Undifferentiated schizophrenia (7) Hypothyroid: Status: Chronic Assessment and plan: will give half dose parenteral levothyroxine Qualifiers: Hypothyroidism type: acquired Qualified Code(s): E03.9 - Hypothyroidism, unspecified (8) DVT prophylaxis: Status: Acute Assessment and plan: heparin SC (9) Discharge planning issues: Status: Acute Assessment and plan: return to [facility] when able to tolerate po and can transition to oral antibiotics Subjective Subjective Interval history since last seen: Patient still has not had any flatus or bowel movement and complains of diffuse abdominal pain. NG has been placed to try to decompress her from her upper GI tract to treat her small bowel obstruction. She remains on IV fluids of D5 LR with 20 of KCl per liter at a rate of 125 mL an hour. She is afebrile but continues to receive antibiotics for pneumonia and possible UTI. She is on ertapenem as well as clindamycin. Her white count is normal at 6800. She has a chronic anemia with a hemoglobin around 10 g. CMP demonstrates a sodium of 149 chloride 111 BUN of 26 creatinine 0.9. LFTs are within normal limits except that she has a low total protein of 5.8 albumin of 2.0. Her procalcitonin is elevated at 1.2 upright KUB were ordered this morning however she can only complete the KUB. Upper abdomen shows nasogastric tube was inserted and projects below the diaphragm with the sideholes projecting near the GE junction. Recommend that the NG be advanced. Earlier this morning she had a flat plate KUB that showed stable dilatation of loops of small bowel in the midabdomen with no free air. I will try Dulcolax suppository to see if we can get any kind of stimulation of her lower GI tract. Exam Narrative Exam Narrative: Patient complains of being thirsty and wanting yahaira garth. I explained her that she can have eating by mouth right now because of the bowel obstruction. Patient has a moist cough but is unable to mobilize her sputum even after the nebulizer treatment. Lungs with coarse bibasilar rhonchi and scattered expiratory wheezes Heart regular rate and rhythm Abdomen is soft but distended with no discernible bowel sounds. She has tenderness with palpation particularly in the epigastrium. Extremities without peripheral edema or cyanosis. She has normal movement of all four extremities. Objective Last Vital Signs Temp 36.2 C L 11/16/20 11:25 Pulse 76 11/16/20 11:25 Resp 16 11/16/20 13:30 BP 117/68 11/16/20 11:25 Pulse Ox 96 11/16/20 11:25 Laboratory Results - last 24 hr 11/15/20 11/16/20 11/16/20 16:00 07:13 07:13 WBC RBC Hgb Hct MCV MCH MCHC RDW Plt Count MPV Immature Gran % Neutrophils % Band Neutrophils % Lymphocytes % Monocytes % Eosinophils % Basophils % Metamyelocytes % Myelocytes % Nucleated RBC % Absolute Neutrophils Absolute Lymphocytes Absolute Monocytes Absolute Eosinophils Absolute Basophils RBC Morphology VBG Lactate Sodium Potassium Chloride Carbon Dioxide Anion Gap BUN Creatinine Estimated GFR/1.73 m2 Glucose Calcium Magnesium 1.8 Total Bilirubin 0.4 Conjugated Bilirubin 0.2 AST 17 ALT 12 L Alkaline Phosphatase 78 Total Protein 5.8 L Albumin 2.0 L Procalcitonin Valproic Acid SARS-CoV-2 (PCR) Negative 11/16/20 11/16/20 11/16/20 07:13 07:13 07:13 WBC 6.88 RBC 3.21 L Hgb 9.9 L Hct 31.5 L MCV 98.1 H MCH 30.8 MCHC 31.4 L RDW 15.1 H Plt Count 155 MPV 10.3 Immature Gran % See Differential Neutrophils % 43.0 Band Neutrophils % 8 Lymphocytes % 41.0 Monocytes % 6.0 Eosinophils % 0.0 Basophils % 0.0 Metamyelocytes % 1 Myelocytes % 1 Nucleated RBC % 0 Absolute Neutrophils 3.51 Absolute Lymphocytes 2.82 Absolute Monocytes 0.41 Absolute Eosinophils 0.00 Absolute Basophils 0.00 RBC Morphology Normal VBG Lactate Sodium 149 H Potassium 3.7 Chloride 111 H Carbon Dioxide 29.6 Anion Gap 8.4 BUN 26 H Creatinine 0.9 Estimated GFR/1.73 m2 >= 60.00 Glucose 108 H Calcium 8.1 L Magnesium Total Bilirubin Conjugated Bilirubin AST ALT Alkaline Phosphatase Total Protein Albumin Procalcitonin Valproic Acid 7.7 SARS-CoV-2 (PCR) 11/16/20 07:13 WBC RBC Hgb Hct MCV MCH MCHC RDW Plt Count MPV Immature Gran % Neutrophils % Band Neutrophils % Lymphocytes % Monocytes % Eosinophils % Basophils % Metamyelocytes % Myelocytes % Nucleated RBC % Absolute Neutrophils Absolute Lymphocytes Absolute Monocytes Absolute Eosinophils Absolute Basophils RBC Morphology VBG Lactate 0.6 Sodium Potassium Chloride Carbon Dioxide Anion Gap BUN Creatinine Estimated GFR/1.73 m2 Glucose Calcium Magnesium Total Bilirubin Conjugated Bilirubin AST ALT Alkaline Phosphatase Total Protein Albumin Procalcitonin 1.2 Valproic Acid SARS-CoV-2 (PCR)
[2020-11-16] MEDS: Bisacodyl 10 MG SUPP PR (16:27)
--- NOTE | 2020-11-16 19:47 | INITIAL_ITS ---
- If Service Date Differs Date of service: 11/16/20 Time of Service: 19:47 Care Management Initial Assess REASON FOR HOSPITALIZATION:: Pneumonia, UTI PAST MEDICAL HISTORY/PAST SURGICAL HISTORY:: Medical History. Acute kidney injury. Alcoholism in remission. Bipolar 1 disorder. Cognitive impairment. COPD (chronic obstructive pulmonary disease). Diabetes mellitus type II, controlled. Diabetic neuropathy. Diastolic dysfunction. Falls frequently. G ERD (gastroesophageal reflux disease). Heart murmur. History of alcohol abuse. Hyperthyroidism. Hypothyroid. Left bundle branch block. AVANI (obstructive sleep apnea). Pancreatitis. Schizoaffective disorder. Secondary Parkinson disease. Subdural hematoma. small right September 201804/10 mechanical fall. Tobacco dependence. Surgical History. H/O abdominal surgery. S/P thoracotomy PREVIOUS FUNCTIONAL STATUS/SOCIAL/FAMILY SUPPORTS:: sEtephanie is currently living at the [facility]. She came there initially from [facility] for rehab over two years ago. Before that she had been living in a assisted ([facility]) in [place] . Estephanie left The [facility] after a few weeks, returned to [facility] and then returned to the [facility]. Estephanie has a long history of mental health issues. She was once and used to work but she has been for about 10 yeasrs and is now disabled. She is independent with care. Estephanie has a mother and a brother and her brother is her DPOA. CURRENT FUNCTIONAL STATUS:: Danette was lying in bed when CM met with her. She had an NG tube placed today due to a SBO found on imaging. She reported that she was very uncomfortable and it was not a good time to talk. She requested a sip of soda, but is unfortunately NPO currently. CM relayed the request to her RN. CM will continue to follow. ADVANCE DIRECTIVES:: COLST on file. Has patient been provided with info about the portal/API?: Yes Did the patient sign up for the portal?: No CODE STATUS:: Full Code INSURANCE COVERAGE / FINANCIAL ISSUES:: ERNIE/ [employer]ONG CURRENT HOME/COMMUNITY SERVICES/EQUIPMENT:: Danette currently resides at the [facility] where she receives support for ADL's. PRIMARY CARE PHYSICIAN:: Mikayla Torres POTENTIAL DISCHARGE NEEDS:: Follow up appointments, coordianted return to the [facility]. PATIENT/FAMILY EDUCATION NEEDS:: Review discharge instructions with pt and facility staff, discussion of self care needs and goals of care. ANTICIPATED BARRIERS TO DISCHARGE:: None identified at this time. TRANSPORTATION:: w/c van vs EMS, depending on mobility at time of transfer. PLAN:: Danette will return the the [facility] once medically cleared. CM will coordinate this return, including transportation which will be determined by her mobility. She will follow up with her PCP and discharge plan of care. CM will continue to follow.
[2020-11-16] MEDS: Pantoprazole 40 MG VIAL IVP (22:25)
[2020-11-17] VITALS (9 sets, daily range): BP systolic 104–123; BP diastolic 64–91; PULSE 72–78; RESP 2–19; TEMP 36.1–36.6; O2SAT 94–99
[2020-11-17] MEDS: CLINDAMYCIN 600 MG/50 ML BAG 100 MG IVPB ×3 (01:01→18:00)
[2020-11-17] MEDS: Insulin Aspart 300 UNITS/3 ML PEN SC ×2 (01:01→06:22)
[2020-11-17] MEDS: Heparin 5,000 UNITS/ML VIAL 5000 UNITS SC ×2 (06:29→23:12)
--- NOTE | 2020-11-17 07:00 | DI.RAD_ITS ---
Exam(s) XR ABDOMEN FLAT UPRIGHT EXAM: 2D digital imaging was performed. CLINICAL HISTORY: SBO. COMPARISON: CR XR ABDOMEN FLAT PLATE from 11/16/2020 CR XR ABDOMEN FLAT UPRIGHT from 11/16/2020 CR XR ABDOMEN FLAT PLATE from 11/16/2020 TECHNIQUE: Supine and Lateral views of the abdomen was performed. FINDINGS: LUNG BASES: Clear. BOWEL GAS PATTERN: There are stable dilated loops of small bowel in the mid abdomen. Stool is seen w ithin the colon. The tip of the nasogastric tube is seen in good position in the stomach. FREE AIR: None. CALCIFICATIONS: No radiopaque calcifications. OSSEOUS STRUCTURES: Normal for age. OTHER FINDINGS: None. IMPRESSION: Stable dilated loops of small bowel in the mid abdomen. Obstruction versus ileus. No significant ch dwaine from the prior examination. DATA REPOSITORY: RADIATION DOSE DELIVERED:
[2020-11-17] MEDS: Albuterol/Ipratropium 3 ML UPD VIAL UPD ×3 (07:46→20:57)
[2020-11-17] MEDS: Budesonide/Formoterol 160/4.5 6 GM 60 PUFF INH IH ×2 (07:47→20:57)
[2020-11-17 07:54] LABS: HCT 31.9 % (36.0-46.0); HGB 9.9 g/dL (11.2-15.7); MPV 10.5 fL (8.0-11.0); Platelet Count 144 10^3/uL (130-400); RBC 3.19 10^6/uL (3.93-5.22); RDW 15.6 % (11.7-14.6); RDW-SD 57.1 fL; WBC 7.49 10^3/uL (4.4-10.8)
[2020-11-17 08:22] LABS: ALT 14 U/L (14-59); AST 27 U/L (15-37); Albumin 2.1 g/dL (3.4-5.0); Alkaline Phosphatase 79 U/L (46-116); BUN 15 mg/dL (7-18); Bilirubin, Total 0.3 mg/dL (0.2-1.0); CREATININE 0.8 mg/dL (0.55-1.02); Calcium 8.4 mg/dL (8.5-10.1); Chloride 114 mmol/L (98-107); Glucose 150 mg/dL (74-106); Potassium 3.7 mmol/L (3.5-5.1); Sodium 152 mmol/L (136-145); Total Protein 5.8 g/dL (6.4-8.2)
[2020-11-17 08:31] LABS: Absolute Basophil Count 0.07 10^3/uL (0.0-0.2); Absolute Neutrophil Count 4.57 10^3/uL (1.2-6.7); Bands % 9; Metamyelocytes % 6; Myelocytes % 8; Nucleated RBC 2 %
[2020-11-17 08:33] LABS: Diff Comment Manual Differential; RBC Morphology Normal
[2020-11-17] MEDS: Refresh PLUS Eye Drops 0.4ml 1 EACH OP ×2 (09:28→20:58)
--- NOTE | 2020-11-17 11:16 | W.PM.PROGNOT ---
Date of Service Date of service: 11/17/20 Time of Service: 11:17 Assessment and Plan Assessment and plan (1) Small bowel obstruction: Status: Suspected Assessment and plan: ileus vs adhesive disease from previous laparotomy -Continue conservative management, decompression with NG tube. Awaiting return of bowel function. Continue to monitor quality and quantity of output. -Hopeful to discontinue NG tube tomorrow if she continues to improve clinically -Laboratory studies reviewed, consider changing IVF in light of worsening hypernatremia (2) UTI (urinary tract infection): Status: Resolved Qualifiers: Urinary tract infection type: acute cystitis Hematuria presence: without hematuria Qualified Code(s): N30.00 - Acute cystitis without hematuria (3) Cognitive impairment: Status: Acute (4) Diabetes mellitus type II, controlled: Status: Acute Qualifiers: Diabetes mellitus supervisor intermediates insulin use: without supervisor intermediates use Diabetes mellitus complication status: without complication Qualified Code(s): E11.9 - Type 2 diabetes mellitus without complications (5) Hypothyroid: Status: Chronic Qualifiers: Hypothyroidism type: acquired Qualified Code(s): E03.9 - Hypothyroidism, unspecified (6) COPD (chronic obstructive pulmonary disease): Status: Chronic Qualifiers: COPD type: unspecified COPD Qualified Code(s): J44.9 - Chronic obstructive pulmonary disease, unspecified (7) Schizophrenia: Status: Suspected Qualifiers: Schizophrenia type: undifferentiated schizophrenia Qualified Code(s): F20.3 - Undifferentiated schizophrenia (8) Community acquired pneumonia: Status: Acute Qualifiers: Laterality: right Lung location: upper lobe of lung Qualified Code(s): J18.9 - Pneumonia, unspecified organism (9) Discharge planning issues: Status: Acute (10) Electrolyte abnormality: Status: Resolved Subjective Subjective Interval history since last seen: Patient reports feeling much better since yesterday, denies any nausea, vomiting, fever, chills, shortness of breath, flatus or bowel movement. A small bowel movement was recorded yesterday but patient is a poor historian. Exam Const General: cooperative and no acute distress Orientation: alert and awake HENMT Face and sinus: other (NG tube in place) Mouth: moist mucous membranes Resp Effort & Inspection: normal respiratory effort, able to speak in complete sentences and no audible wheezes Cardio Rate: regular rate Rhythm: regular rhythm GI Inspection: scar (large midline laparotomy scar) Palpation: soft, no guarding and nontender Percussion: normal to percussion Skin General skin exam: no rashes or lesions noted Objective Last Vital Signs Temp 97.7 F 11/17/20 07:23 Pulse 76 11/17/20 07:23 Resp 16 11/17/20 07:23 BP 104/68 11/17/20 07:23 Pulse Ox 98 11/17/20 07:23 Laboratory Results - last 24 hr 11/17/20 11/17/20 06:47 06:47 WBC 7.49 RBC 3.19 L Hgb 9.9 L Hct 31.9 L MCV 100.0 H MCH 31.0 MCHC 31.0 L RDW 15.6 H Plt Count 144 MPV 10.5 Immature Gran % See Differential Neutrophils % 52.0 Band Neutrophils % 9 Lymphocytes % 20.0 Monocytes % 4.0 Eosinophils % 0.0 Basophils % 1.0 Metamyelocytes % 6 Myelocytes % 8 Nucleated RBC % 2 Absolute Neutrophils 4.57 Absolute Lymphocytes 1.50 Absolute Monocytes 0.30 Absolute Eosinophils 0.00 Absolute Basophils 0.07 RBC Morphology Normal Sodium 152 H Potassium 3.7 Chloride 114 H Carbon Dioxide 30.0 Anion Gap 8.0 BUN 15 D Creatinine 0.8 Estimated GFR/1.73 m2 >= 60.00 Glucose 150 H Calcium 8.4 L Total Bilirubin 0.3 AST 27 ALT 14 Alkaline Phosphatase 79 Total Protein 5.8 L Albumin 2.1 L
[2020-11-17] MEDS: Bisacodyl 10 MG SUPP PR (11:29)
[2020-11-17] MEDS: Levothyroxine 100 MCG VIAL 75 MCG IVP (11:30)
[2020-11-17] MEDS: Normal Saline Flush 10 ML SYR IVP (11:31)
--- NOTE | 2020-11-17 12:36 | DI.VRAD_ITS ---
PROCEDURE INFORMATION: Exam: XR Abdomen Exam date and time: 11/17/2020 12:00 AM Age: 55 years old Clinical indication: Condition or disease; Other: Sbo TECHNIQUE: Imaging protocol: XR of the abdomen. Views: 2 Views. Upright and supine views. COMPARISON: CR XR ABDOMEN FLAT PLATE 11/16/2020 10:43 AM FINDINGS: Tubes, catheters and devices: Nasogastric tube with tip in the stomach. Gastrointestinal tract: Dilated loops of small bowel mid abdomen. Air and stool present in the colon. Intraperitoneal space: No free intraperitoneal air. Bones/joints: Unremarkable for age. IMPRESSION: Small bowel obstruction versus ileus. No significant change from prior study. Dictated and Authenticated by: Cornelius Ballard MD. Ordering:MARITZA Weiss MD
[2020-11-17] MEDS: ERTAPENEM 1 GM in Normal Saline 50 ML IVPB (12:58)
--- NOTE | 2020-11-17 14:17 | W.PM.PROGNOT ---
Date of Service Date of service: 11/17/20 Time of Service: 14:18 Assessment and Plan Assessment and plan (1) Small bowel obstruction: Status: Suspected Assessment and plan: Continue n.p.o. status and NG decompression. Surgical service is following along with the hospital service. We are trying conservative management. Dulcolax suppository given daily to see if we can stimulate some movement from the lower GI tract. No documented BM as of yet. (2) Community acquired pneumonia: Status: Acute Assessment and plan: treat what probably was aspiration pneumonia w/ clindamycin and ertapenem. She has allergies to PCN and TMP/SMX. Continue supplemental oxygen as well as scheduled DuoNeb treatments. Acapella ordred if she cooperates. Qualifiers: Laterality: right Lung location: upper lobe of lung Qualified Code(s): J18.9 - Pneumonia, unspecified organism (3) Dehydration: Status: Acute Assessment and plan: iv fluids (LR/D5/KCL), monitor urine output and electrolytes and bun, creatinine. Summers catheter in place for accurate I's&O's. (4) Diabetes mellitus type II, controlled: Status: Acute Assessment and plan: monitor glucose q6h, cover w/ sliding scale; give D5Lr while NPO Well controlled. 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 Diabetes mellitus complication status: without complication Qualified Code(s): E11.9 - Type 2 diabetes mellitus without complications (5) COPD (chronic obstructive pulmonary disease): Status: Chronic Assessment and plan: continue her home inhalers along w/ DuoNeb aerosols and IS and acapella Qualifiers: COPD type: unspecified COPD Qualified Code(s): J44.9 - Chronic obstructive pulmonary disease, unspecified (6) Schizophrenia: Status: Suspected Assessment and plan: will have to hold her depakote and her clozapine while NPO but as soon as she can tolerate even a little po she should get back on her home meds Qualifiers: Schizophrenia type: undifferentiated schizophrenia Qualified Code(s): F20.3 - Undifferentiated schizophrenia (7) Hypothyroid: Status: Chronic Assessment and plan: will give half dose parenteral levothyroxine Qualifiers: Hypothyroidism type: acquired Qualified Code(s): E03.9 - Hypothyroidism, unspecified (8) DVT prophylaxis: Status: Acute Assessment and plan: heparin SC (9) Discharge planning issues: Status: Acute Assessment and plan: return to [facility] when able to tolerate po and can transition to oral antibiotics Subjective Subjective Patient reports: no new complaints, feels better, shortness of breath and afebrile; denies nausea Interval history since last seen: She requests a soda. Exam Narrative Exam Narrative: Patient complains of being thirsty and wanting yahaira garth. I explained her that she can have eating by mouth right now because of the bowel obstruction. Const General: cooperative, no acute distress and well developed Nutritional Appearance: average body habitus Orientation: alert, awake, oriented to person and oriented to place [facility] Head: normal to inspection and normocephalic Ears: hearing grossly normal bilaterally and external ears normal General nose exam: external nose normal Face and sinus: normal facial exam, sinuses nontender and face symmetric Mouth: oral mucosae normal, lip normal, tongue normal and oropharynx normal Neck Neck: normal visual inspection, full ROM, trachea midline and no JVD Resp Effort & Inspection: normal respiratory effort and able to speak in complete sentences Auscultation: diminished lung sounds bilaterally in the lower lung fish and no wheezes Cardio Rate: regular rate Rhythm: regular rhythm Heart Sounds: S1 normal and S2 normal GI Inspection: scar (midline ventral scar) Palpation: soft, no hepatosplenomegaly and tender (mild diffuse) Auscultation: hypoactive bowel sounds Neuro General: patient alert, patient awake, no focal motor deficits and patient confused Extrem General: no pedal edema and no calf tenderness Objective Last Vital Signs Temp 36.5 C 11/17/20 07:23 Pulse 76 11/17/20 07:23 Resp 18 11/17/20 11:47 BP 104/68 11/17/20 07:23 Pulse Ox 98 11/17/20 07:23 Laboratory Results - last 24 hr 11/17/20 11/17/20 06:47 06:47 WBC 7.49 RBC 3.19 L Hgb 9.9 L Hct 31.9 L MCV 100.0 H MCH 31.0 MCHC 31.0 L RDW 15.6 H Plt Count 144 MPV 10.5 Immature Gran % See Differential Neutrophils % 52.0 Band Neutrophils % 9 Lymphocytes % 20.0 Monocytes % 4.0 Eosinophils % 0.0 Basophils % 1.0 Metamyelocytes % 6 Myelocytes % 8 Nucleated RBC % 2 Absolute Neutrophils 4.57 Absolute Lymphocytes 1.50 Absolute Monocytes 0.30 Absolute Eosinophils 0.00 Absolute Basophils 0.07 RBC Morphology Normal Sodium 152 H Potassium 3.7 Chloride 114 H Carbon Dioxide 30.0 Anion Gap 8.0 BUN 15 D Creatinine 0.8 Estimated GFR/1.73 m2 >= 60.00 Glucose 150 H Calcium 8.4 L Total Bilirubin 0.3 AST 27 ALT 14 Alkaline Phosphatase 79 Total Protein 5.8 L Albumin 2.1 L
[2020-11-17] MEDS: Pantoprazole 40 MG VIAL IVP (23:08)
[2020-11-18] VITALS (7 sets, daily range): BP systolic 115–132; BP diastolic 60–68; PULSE 71–80; RESP 5–20; TEMP 36.5–36.6; O2SAT 95–96
[2020-11-18] MEDS: CLINDAMYCIN 600 MG/50 ML BAG 100 MG IVPB ×3 (01:39→18:29)
[2020-11-18] MEDS: Normal Saline Flush 10 ML SYR IVP ×2 (01:39→10:04)
[2020-11-18] MEDS: OLANZapine 10 MG VIAL IM (04:29)
[2020-11-18] MEDS: Water,Injection,Sterile 10 ML VIAL (04:29)
--- NOTE | 2020-11-18 05:02 | NUR.NOTE ---
Nursing Note: At 0200 on 11/18/2020 Pt requested to remove telemetry. Told pt it is important to keep the telemetry on her to monitor her heart rhythm per MD orders. Pt raised her voice and states, it's my right I'll do what I want. Pt also wanted to removed jaramillo catheter. Explained to pt that it is important to keep the jaramillo in to monitor her urine output.Pt attempted to remove jaramillo catheter by pushing the tube with her right foot. Notified charge nurse. Explained to pt that pulling the jaramillo without depleting the balloon inside the jaramillo would cause damage to her urethra. Pt stop pulling her jaramillo catheter and agree to wait removed catheter tomorrow. Will continue to monitor pt behavior.
--- NOTE | 2020-11-18 05:22 | NUR.NOTE ---
Nursing Note: At 0330 on 11/18/20 Pt getting agitated, screaming with random sentences such as come on Anselmo I love you, sweet Alabaflor, and mother Carlota. Pt presenting visual and auditory hallucination, delirium and trying pulling tube lines. Pt lying prison in bed. RN approached pt to help pt back in the middle of bed. Pt got upset and verbalized, get away from me, don't come close I will call my brother to kill you. Pt kicking with her feet while lying in bed. Pt grabbed pillow and threw the pillow towards the RN (this RN). Pt grabbed another pillow to cover over her face. Pt continue hitting bed mattress and bed side-rails, and continue screaming words randomly. Some of pt's medications has been on hold. Pt currently NPO and NG tube in place. Notified MD by charge nurse. MD orders Olanzapine 10 mg IM. Explained medication to pt. Pt agreed to received medication. Assisted pt to settle in bed by three RN. Given Olanzapine 10 mg IM administered in right ventrogluteal muscle. Given ice chips per pt requests. After 15 minutes reassess pt, vital signs taken, finger stick for blood sugar. Pt lying in bed comfortably. Pt verbalized,sorry about what I did earlier. Pt is quiet and appears asleep. Call light within reach and bed alarm on. RN will continue to monitor pt.
[2020-11-18] MEDS: Heparin 5,000 UNITS/ML VIAL 5000 UNITS SC ×2 (06:55→20:24)
[2020-11-18 07:35] LABS: Absolute Monocyte Count 0.88 10^3/uL (0.1-0.8); HCT 31.4 % (36.0-46.0); HGB 9.7 g/dL (11.2-15.7); MCH 30.9 pg (27.0-33.0); MCHC 30.9 % (32.0-36.0); MPV 9.8 fL (8.0-11.0); Nucleated RBC 0 %; Platelet Count 148 10^3/uL (130-400); RBC 3.14 10^6/uL (3.93-5.22); RDW 15.6 % (11.7-14.6); RDW-SD 57.1 fL; WBC 8.77 10^3/uL (4.4-10.8)
[2020-11-18 07:51] LABS: ALT 17 U/L (14-59); AST 37 U/L (15-37); Alkaline Phosphatase 79 U/L (46-116); Anion Gap 7.6 mmol/L (3-11); BUN 7 mg/dL (7-18); Bilirubin, Total 0.3 mg/dL (0.2-1.0); CO2 29.4 mmol/L (21.0-32.0); CREATININE 0.7 mg/dL (0.55-1.02); Calcium 8.3 mg/dL (8.5-10.1); Chloride 114 mmol/L (98-107); Glucose 161 mg/dL (74-106); Potassium 3.7 mmol/L (3.5-5.1); Sodium 151 mmol/L (136-145); Total Protein 5.8 g/dL (6.4-8.2)
[2020-11-18 07:52] LABS: Magnesium 1.5 mg/dL (1.8-2.4)
[2020-11-18 07:59] LABS: Absolute Lymphocyte Count 3.42 10^3/uL (1.2-3.4); Absolute Neutrophil Count 3.16 10^3/uL (1.2-6.7); Atypical Lymphocytes % 1; Bands % 5
[2020-11-18 08:00] LABS: Diff Comment Manual Differential; Metamyelocytes % 4; Myelocytes % 10; Promyelocytes % 1
[2020-11-18] MEDS: Albuterol/Ipratropium 3 ML UPD VIAL UPD ×3 (08:01→20:12)
[2020-11-18] MEDS: Budesonide/Formoterol 160/4.5 6 GM 60 PUFF INH IH ×2 (08:02→20:12)
[2020-11-18 08:25] LABS: RBC Morphology Normal
[2020-11-18] MEDS: Refresh PLUS Eye Drops 0.4ml 1 EACH OP ×2 (10:04→20:12)
[2020-11-18] MEDS: Magnesium Oxide 400 MG TAB PO ×2 (10:04→20:12)
[2020-11-18] MEDS: OLANZapine 5 MG TAB PO (10:04)
[2020-11-18] MEDS: Levothyroxine 100 MCG VIAL 75 MCG IVP (10:04)
[2020-11-18] MEDS: ERTAPENEM 1 GM in Normal Saline 50 ML IVPB (12:12)
--- NOTE | 2020-11-18 13:01 | PGE_ITS ---
Date of Service Date of service: 11/18/20 Time of Service: 13:01 Assessment and Plan Assessment and plan (1) Small bowel obstruction: Status: Suspected Assessment and plan: Continue n.p.o. status and NG decompression. +BS and no pain. Surgical service is following along with the hospital service; defer to surgery for timing on discontinuing NG and advancing to a diet. (2) Community acquired pneumonia: Status: Acute Assessment and plan: treat what probably was aspiration pneumonia w/ clindamycin and ertapenem. She has allergies to PCN and TMP/SMX. Continue supplemental oxygen as well as scheduled DuoNeb treatments. Acapella ordred if she cooperates. Qualifiers: Laterality: right Lung location: upper lobe of lung Qualified Code(s): J18.9 - Pneumonia, unspecified organism (3) Dehydration: Status: Acute Assessment and plan: iv fluids (LR/D5/KCL), monitor urine output and electrolytes and bun, creatinine. Summers catheter in place for accurate I's&O's. (4) Diabetes mellitus type II, controlled: Status: Acute Assessment and plan: monitor glucose q6h, cover w/ sliding scale; give D5Lr while NPO Well controlled. 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 Required IM Zyprexa overnight d/t agitation. Qualifiers: Schizophrenia type: undifferentiated schizophrenia Qualified Code(s): F20.3 - Undifferentiated schizophrenia (7) Hypothyroid: Status: Chronic Assessment and plan: Continue half dose parenteral levothyroxine Qualifiers: Hypothyroidism type: acquired Qualified Code(s): E03.9 - Hypothyroidism, unspecified (8) DVT prophylaxis: Status: Acute Assessment and plan: heparin SC (9) Discharge planning issues: Status: Acute Assessment and plan: return to [facility] when able to tolerate po and can transition to oral antibiotics Subjective Subjective Patient reports: no new complaints and afebrile; denies nausea and vomiting Interval history since last seen: Pt states she has no current abd pain. She requests Dian Charlene. Exam Narrative Exam Narrative: Patient complains of being thirsty and wanting dian charlene. I explained her that she can have eating by mouth right now because of the bowel obstruction. Const General: cooperative, no acute distress and well developed Nutritional Appearance: average body habitus Orientation: alert, awake, oriented to person and oriented to place [facility] Head: normal to inspection and normocephalic Ears: hearing grossly normal bilaterally and external ears normal General nose exam: external nose normal Face and sinus: normal facial exam, sinuses nontender and face symmetric Mouth: oral mucosae normal, lip normal, tongue normal and oropharynx normal Neck Neck: normal visual inspection, full ROM, trachea midline and no JVD Resp Effort & Inspection: normal respiratory effort and able to speak in complete sentences Auscultation: diminished lung sounds bilaterally in the lower lung fish and no wheezes Cardio Rate: regular rate Rhythm: regular rhythm Heart Sounds: S1 normal and S2 normal GI Inspection: scar (midline ventral scar) Palpation: soft, no hepatosplenomegaly and nontender Auscultation: normal bowel sounds and hypoactive bowel sounds Neuro General: patient alert, patient awake, no focal motor deficits and patient confused Extrem General: no pedal edema and no calf tenderness Objective Last Vital Signs Temp 36.6 C 11/18/20 07:53 Pulse 71 11/18/20 07:53 Resp 18 11/18/20 08:01 BP 132/60 11/18/20 07:53 Pulse Ox 95 11/18/20 07:53 Laboratory Results - last 24 hr 11/18/20 11/18/20 11/18/20 07:10 07:10 07:10 WBC 8.77 RBC 3.14 L Hgb 9.7 L Hct 31.4 L MCV 100.0 H MCH 30.9 MCHC 30.9 L RDW 15.6 H Plt Count 148 MPV 9.8 Immature Gran % See Differential Neutrophils % 31.0 Band Neutrophils % 5 Lymphocytes % 38.0 Atypical Lymphs % 1 Monocytes % 10.0 Eosinophils % 0.0 Basophils % 0.0 Metamyelocytes % 4 Myelocytes % 10 Promyelocytes % 1 Nucleated RBC % 0 Absolute Neutrophils 3.16 Absolute Lymphocytes 3.42 H Absolute Monocytes 0.88 H Absolute Eosinophils 0.00 Absolute Basophils 0.00 RBC Morphology Normal Sodium 151 H Potassium 3.7 Chloride 114 H Carbon Dioxide 29.4 Anion Gap 7.6 BUN 7 Creatinine 0.7 Estimated GFR/1.73 m2 >= 60.00 Glucose 161 H Calcium 8.3 L Magnesium 1.5 L Total Bilirubin 0.3 AST 37 ALT 17 Alkaline Phosphatase 79 Total Protein 5.8 L Albumin 2.0 L
--- NOTE | 2020-11-18 13:35 | PHA.REVIEW ---
Pharmacy Admission Review - Admission Clinical Review (Last Reviewed 11/15/20 @ 22:28 by Isela Rachel DO) Acute metabolic encephalopathy (Acute) Dehydration (Acute) Community acquired pneumonia (Acute) Schizoaffective disorder (Acute) DVT prophylaxis (Acute) Rib pain on right side (Acute) Discharge planning issues (Acute) Cognitive impairment (Acute) Diabetes mellitus type II, controlled (Acute) Diabetic neuropathy (Acute) Secondary Parkinson disease (Acute) prednisone Allergy (Unknown, Unverified 11/15/20 12:29) lithium Allergy (Unverified 11/15/20 12:29) oxycodone [From OxyContin] Allergy (Unverified 11/15/20 12:29) Penicillins Allergy (Unverified 11/15/20 12:29) pioglitazone Allergy (Unverified 11/15/20 12:29) Sulfa (Sulfonamide Antibiotics) Allergy (Unverified 11/15/20 12:29) tramadol Allergy (Unverified 11/15/20 12:29) Resuscitation Status Full Code Height 5 ft 1 in Weight 72.7 kg - Renal Dosing Renal Dosing: BUN 7 mg/dL (7-18) 11/18/20 07:10 Creatinine 0.7 mg/dL (0.55-1.02) 11/18/20 07:10 Medications needing adjustments: Reviewed (crcl ~60ml/min) - Anticoagulation Anticoagulation: Hgb 9.7 g/dL (11.2-15.7) L 11/18/20 07:10 Hct 31.4 % (36.0-46.0) L 11/18/20 07:10 Plt Count 148 10^3/uL (130-400) 11/18/20 07:10 Creatinine 0.7 mg/dL (0.55-1.02) 11/18/20 07:10 DVT Prophylaxis: Reviewed Medications: Heparin Therapeutic Anticoagulation: N/A - Relevant Labs Sodium 151 mmol/L (136-145) H 11/18/20 07:10 Potassium 3.7 mmol/L (3.5-5.1) 11/18/20 07:10 Chloride 114 mmol/L (98-107) H 11/18/20 07:10 Magnesium 1.5 mg/dL (1.8-2.4) L 11/18/20 07:10 Electrolytes, C-Reactive P, ESR: Reviewed - DM Control DM Control: Glucose 161 mg/dL (74-106) H 11/18/20 07:10 Finger Stick Blood Glucose 139 Finger Stick Blood Glucose 139 Finger Stick Blood Glucose 139 Finger Stick Blood Glucose 143 Insulin Dosing: Reviewed (insulin aspart SS) - Heart Failure/MO Heart Failure/MO: Troponin I < 0.05 ng/mL (<0.06) 11/15/20 12:50 - BP Control BP Control: Blood Pressure 132/60 Blood Pressure 115/68 If elevated: N/A - Qtc Review If Elevated: Reviewed (526 on admission home meds contd as inpt : clozapine, olanzapine, omeprazole(pantoprazole as inpt)) - IV to PO Switch IV Medications: Reviewed (some meds ordered IV d/t Ng tube placement) - Home Meds Home Med List reviewed: Reviewed (not ordered: metfomin, torsemide, omeprazole(pantoprazole as inpt)) - Current meds Current Medication Order Review: Reviewed - Comments Comments/Follow Ups: the [facility]. has NG tube for SBO. on ertapenem for ESBL. provider and CM checking into if the can use fosfomycin (total 3 doses 3 days apart)
--- NOTE | 2020-11-18 14:24 | W.PM.PROGNOT ---
Date of Service Date of service: 11/18/20 Time of Service: 11:24 Assessment and Plan Assessment and plan (1) Small bowel obstruction: Status: Suspected Assessment and plan: Appears to be improving, likely adhesive disease based on focal dilated loop of small bowel -OK to discontinue NG tube, minimal output subtracted from ice chips taken in -Start clear liquid diet and advance as tolerated, DC IVF when tolerating enough PO -Supportive care/medical management per hospitalist -Encourage assisted ambulation when more mentally stable and able to cooperate (2) Community acquired pneumonia: Status: Acute Qualifiers: Laterality: right Lung location: upper lobe of lung Qualified Code(s): J18.9 - Pneumonia, unspecified organism (3) Schizoaffective disorder: Status: Acute Qualifiers: Schizoaffective disorder type: bipolar Qualified Code(s): F25.0 - Schizoaffective disorder, bipolar type (4) Electrolyte abnormality: Status: Resolved (5) Dehydration: Status: Resolved (6) Cognitive impairment: Status: Acute (7) Hypothyroid: Status: Chronic Qualifiers: Hypothyroidism type: acquired Qualified Code(s): E03.9 - Hypothyroidism, unspecified (8) COPD (chronic obstructive pulmonary disease): Status: Chronic Qualifiers: COPD type: unspecified COPD Qualified Code(s): J44.9 - Chronic obstructive pulmonary disease, unspecified (9) Schizophrenia: Status: Suspected Qualifiers: Schizophrenia type: undifferentiated schizophrenia Qualified Code(s): F20.3 - Undifferentiated schizophrenia Subjective Subjective Interval history since last seen: Patient was acting erratically overnight and required an IM dose of Zyprexa, she was also hallucinating and throwing things at staff. This morning she is sleeping soundly and I did not wake her enough to get much information from her. She reportedly was asking for soda and soup without any further complaints of nausea or vomiting. Exam Const General: comfortable and no acute distress Other: asleep HENIN General nose exam: other (NG tube in place) Resp Effort & Inspection: normal respiratory effort and no audible wheezes Cardio Rate: regular rate Rhythm: regular rhythm GI Inspection: normal to inspection Palpation: soft, no guarding and nontender Percussion: normal to percussion Objective Last Vital Signs Temp 97.9 F 11/18/20 07:53 Pulse 71 11/18/20 07:53 Resp 18 11/18/20 08:01 BP 132/60 11/18/20 07:53 Pulse Ox 95 11/18/20 07:53 Laboratory Results - last 24 hr 11/18/20 11/18/20 11/18/20 07:10 07:10 07:10 WBC 8.77 RBC 3.14 L Hgb 9.7 L Hct 31.4 L MCV 100.0 H MCH 30.9 MCHC 30.9 L RDW 15.6 H Plt Count 148 MPV 9.8 Immature Gran % See Differential Neutrophils % 31.0 Band Neutrophils % 5 Lymphocytes % 38.0 Atypical Lymphs % 1 Monocytes % 10.0 Eosinophils % 0.0 Basophils % 0.0 Metamyelocytes % 4 Myelocytes % 10 Promyelocytes % 1 Nucleated RBC % 0 Absolute Neutrophils 3.16 Absolute Lymphocytes 3.42 H Absolute Monocytes 0.88 H Absolute Eosinophils 0.00 Absolute Basophils 0.00 RBC Morphology Normal Sodium 151 H Potassium 3.7 Chloride 114 H Carbon Dioxide 29.4 Anion Gap 7.6 BUN 7 Creatinine 0.7 Estimated GFR/1.73 m2 >= 60.00 Glucose 161 H Calcium 8.3 L Magnesium 1.5 L Total Bilirubin 0.3 AST 37 ALT 17 Alkaline Phosphatase 79 Total Protein 5.8 L Albumin 2.0 L
[2020-11-18] MEDS: Insulin Aspart 300 UNITS/3 ML PEN SC (18:43)
[2020-11-18] MEDS: Divalproex 500 MG TABEC 2000 MG PO (20:22)
[2020-11-19] MEDS: CLINDAMYCIN 600 MG/50 ML BAG 100 MG IVPB ×2 (02:26→10:48)
[2020-11-19] MEDS: Heparin 5,000 UNITS/ML VIAL 5000 UNITS SC (05:45)
[2020-11-19 07:27] LABS: Anion Gap 10.6 mmol/L (3-11); BUN 5 mg/dL (7-18); CO2 25.4 mmol/L (21.0-32.0); CREATININE 0.9 mg/dL (0.55-1.02); Chloride 110 mmol/L (98-107); Glucose 176 mg/dL (74-106); Potassium 4.1 mmol/L (3.5-5.1); Sodium 146 mmol/L (136-145)
[2020-11-19 07:29] LABS: Magnesium 1.3 mg/dL (1.8-2.4)
[2020-11-19] MEDS: Refresh PLUS Eye Drops 0.4ml 1 EACH OP (07:52)
[2020-11-19] MEDS: Levothyroxine 100 MCG VIAL 75 MCG IVP (07:52)
[2020-11-19] MEDS: Magnesium Oxide 400 MG TAB PO (07:53)
[2020-11-19] MEDS: OLANZapine 5 MG TAB PO (07:53)
[2020-11-19] MEDS: Bisacodyl 10 MG SUPP PR (07:53)
[2020-11-19] MEDS: Insulin Aspart 300 UNITS/3 ML PEN SC ×2 (07:54→12:42)
[2020-11-19] MEDS: Albuterol/Ipratropium 3 ML UPD VIAL UPD (08:57)
[2020-11-19] MEDS: Budesonide/Formoterol 160/4.5 6 GM 60 PUFF INH IH (08:58)
[2020-11-19] MEDS: OLANZapine 10 MG VIAL 5 MG IM (11:43)
--- NOTE | 2020-11-19 12:13 | W.PM.DS.N ---
Date of service: 11/19/20 Time of Service: 12:13 DS: Diagnosis Discharge Diagnosis (1) Small bowel obstruction: Status: Suspected (2) Community acquired pneumonia: Status: Acute (3) Schizoaffective disorder: Status: Acute (4) Electrolyte abnormality: Status: Resolved (5) Dehydration: Status: Resolved (6) Cognitive impairment: Status: Acute (7) Hypothyroid: Status: Chronic (8) COPD (chronic obstructive pulmonary disease): Status: Chronic (9) Schizophrenia: Status: Suspected Discharge Plan Disposition Patient Disposition: LEVEL III [facility] Condition: Improving Discharge Details Reason For Visit: Pneumonia,UTI Admit Date/Time: 11/15/20 15:50 Admit Provider: Froilan Claudio Attending Provider: Froilan Claudio Primary Care Provider: Mikayla Torres [facility] Course Hospital Course: Resident of the [facility] brought to the emergency department because of acute nausea and decreased appetite generalized weakness. Imaging included CXR that showed questionable RUL infiltrate and so a CT of the chest was done as well as CT of the abdomen and pelvis. CT chest demonstrated patchy infiltrates in the RUL and RLL. CT of thee abdomen was remarkable for abnormal circumferential thickening of the distal stomach and duodenum and jejunal small bowel suggestive of incipient small bowel obstruction. Patient had blood and urine cultures taken and was put on Ertapenem and doxycycline (patient has allergies to sulfa and PCN). Dr. Rachel was consulted by the ER to evaluate the CT scan for obstruction. She indicated to me that she agrees w/ radiology interpretation and recommend keeping the patient npo w/ repeat KUB in the morning and if she develops vomiting to place and NG. Patient's labs were included CBC (which was unremarkable), CMP and lipase (no abnormal LFT or lipase), BUN and creatinine that were elevated 34, 1.1. VBG that was unremarkable including normal lactate. UA was remarkable for nitrities and trace LE, over 50 WBC and many bacteria. Ertapenem and clindamycin initiated for treatment of PNA; concerning for aspiration. Her UA was positive and culture grew ESBL E.Coli sensitive to ertapenem. Her developing SBO vs ileus resolved, NG discontinued, and she was able to tolerate clear liquids, then regular food. She did have frequent episodes of hollering out to persons that were not present. On several occasions she was very agitated and would throw items. IM Zyprexa given with good results. On the day of discharge fosfomycin 3g orally given to continue the treatment for ESBL E.Coli UTI. She will repeat this dosage every 3 days for 2 more doses. For ongoing antibiotic treatment for pneumonia, clindamycin 600mg TID. Home Meds and New Rx's Prescriptions: New fosfomycin tromethamine 3 gram packet See Rx Instructions .ROUTE .COMPLEX Qty: 2 RF: 0 clindamycin HCl [Cleocin HCl] 300 mg capsule 600 mg PO TID Qty: 18 RF: 0 Continued omeprazole 20 mg capsule,delayed release(DR/EC) 20 mg PO BID RF: 0 potassium chloride 10 mEq tablet extended release 30 meq PO DAILY RF: 0 benztropine 1 mg tablet 1 mg PO BID RF: 0 divalproex 500 mg tablet,delayed release (DR/EC) 2,000 mg PO .QHS RF: 0 metformin 1,000 mg Tablet 750 mg PO QAM RF: 0 Nicotrol 10 mg Cartridge 1 inh INHALATION 4-6XD PRNRF: 0 ergocalciferol (vitamin D2) [Vitamin D2] 1,250 mcg (50,000 unit) Capsule 50,000 unit PO DIRECTED RF: 0 CertaVite Senior 0.4-300-250 mg-mcg-mcg Tablet 1 tab PO DAILY RF: 0 atorvastatin 40 mg Tablet 40 mg PO QPM RF: 0 torsemide 20 mg Tablet 60 mg PO DAILY RF: 0 clozapine 50 mg Tablet 175 mg PO QAM RF: 0 ferrous gluconate 324 mg (37.5 mg iron) Tablet 324 mg PO BID RF: 0 Combivent Respimat 20-100 mcg/actuation Mist 1 puff INHALATION QID PRNRF: 0 polyethylene glycol 3350 17 gram/dose Powder 17 g PO DAILY RF: 0 senna 8.6 mg Capsule 17.2 mg PO .QHS RF: 0 insulin aspart U-100 [Novolog Flexpen U-100 Insulin] 100 unit/mL (3 mL) Insulin Pen 1 - 6 unit SUBCUT TID PRNRF: 0 clozapine 50 mg Tablet 275 mg PO HS RF: 0 acetaminophen [Tylenol] 325 mg Tablet 650 mg BID RF: 0 white petrolatum-mineral oil Ointment See Rx Instructions .ROUTE .COMPLEX RF: 0 magnesium chloride 64 mg Tablet,Delayed Release (Dr/Ec) 128 mg PO BID RF: 0 prochlorperazine maleate [Compazine] 10 mg tablet 10 mg PO TID PRN (Reason: nausea and vomiting) Qty: 7 RF: 0 olanzapine 5 mg tablet 5 mg PO DAILY RF: 0 buspirone 10 mg tablet 10 mg PO TID RF: 0 levothyroxine 150 mcg tablet 150 mcg PO HS RF: 0 albuterol sulfate 90 mcg/actuation HFA aerosol inhaler 2 inh INHALATION Q4H PRN PRNRF: 0 polyvinyl alcohol-povidone 0.5-0.6 % Drops 1 drp OPHTHALMIC (EYE) TID RF: 0 Acapella W/ Mthpc 21-1530 1 applic inhalation TID RF: 0 budesonide-formoterol [Symbicort] 160-4.5 mcg/actuation Hfa Aerosol Inhaler 2 puff INHALATION BID RF: 0 nitroglycerin 0.4 mg Tablet, Sublingual 1 mg sublingual PRN PRNRF: 0 Discharge Instructions Activity:: Activity as Tolerated Equipment/Supplies:: No Equipment Needed Diet:: Normal Diet DS: Summary Time Spent with Patient providing and/or coordinating discharge services: Greater than 30 minutes Status at Discharge Functional status at discharge: independent ambulation Overall status at discharge: patient is progressing back to baseline Mental Status: other (Speaks to persons not present; hallucinating. Oriented to person.) Speech and Movement: speech and movement normal Mood: manic mood (intermittently) and other (Speaks to persons not present; hallucinating. Oriented to person.) Affect: labile affect Exam Narrative Exam Narrative: Pt hollers out frequently. Talking to people that aren't actually present. Const General: cooperative, no acute distress and well developed Nutritional Appearance: average body habitus Orientation: alert, awake, oriented to person and oriented to place [facility] Head: normal to inspection and normocephalic Ears: hearing grossly normal bilaterally and external ears normal General nose exam: external nose normal Face and sinus: normal facial exam, sinuses nontender and face symmetric Mouth: oral mucosae normal, lip normal, tongue normal and oropharynx normal Neck Neck: normal visual inspection, full ROM, trachea midline and no JVD Resp Effort & Inspection: normal respiratory effort and able to speak in complete sentences Auscultation: diminished lung sounds bilaterally in the lower lung fish and no wheezes Cardio Rate: regular rate Rhythm: regular rhythm Heart Sounds: S1 normal and S2 normal GI Inspection: scar (midline ventral scar) Palpation: soft, no hepatosplenomegaly and nontender Auscultation: normal bowel sounds and hypoactive bowel sounds Neuro General: patient alert, patient awake, no focal motor deficits and patient confused Extrem General: no pedal edema and no calf tenderness Psych Mental Status: other (Speaks to persons not present; hallucinating. Oriented to person.) Speech and Movement: speech and movement normal Mood: manic mood (intermittently) and other (Speaks to persons not present; hallucinating. Oriented to person.) Affect: labile affect DS: Data Vitals/I&O Vitals and I&O: Vital Signs Temperature 36.5 C 11/18/20 23:30 Temperature Source Tympanic 11/18/20 23:30 Pulse 72 11/18/20 23:30 Pulse Rhythm Regular 11/19/20 04:06 Pulse 81 11/15/20 13:02 Respiratory Rate 20 11/18/20 23:30 Respiratory Effort Non-Labored 11/19/20 04:06 Respiratory Depth Normal 11/19/20 04:06 Respiratory Pattern Normal 11/19/20 04:06 Blood Pressure 132/60 11/18/20 23:30 Blood Pressure Mean 68 11/15/20 13:02 Blood Pressure Position Supine 11/15/20 12:23 Pulse Oximetry 96 11/18/20 23:30 Oxygen Delivery Method Room Air 11/18/20 23:30 Oxygen Flow Rate 0 11/18/20 23:30 Pain Level 0 11/18/20 23:30 Comment 11/15/20 12:23 Intake & Output 11/18/20 11/19/20 11/19/20 23:59 11:59 23:59 Intake Total 2799.167 / 2970.000 50 / 50 Output Total 650 / 1600 250 / 250 Balance 2149.167 / 1370.000 -200 / -200 Intake: IV 2079.167 / 2200.000 50 / 50 Oral 720 / 770 Output: Gastric Drainage 300 / 850 Left Nare 300 / 850 Urine 350 / 750 250 / 250 Other: Urine Color Dark Margarita Dark Margarita Urine Appearance Clear Clear Stool Size Large Stool Characteristics Formed Brown Data Completed and Pending Labs on day of discharge: Labs from last 24 hours 11/19/20 11/19/20 06:19 06:10 Sodium 146 H Potassium 4.1 Chloride 110 H Carbon Dioxide 25.4 Anion Gap 10.6 BUN 5 L Creatinine 0.9 Estimated GFR/1.73 m2 >= 60.00 Glucose 176 H Calcium 8.0 L Magnesium 1.3 L Preliminary micro results at discharge 11/15/20 16:25 Blood Culture - Preliminary Blood NO GROWTH 72 HOURS 11/15/20 16:15 Blood Culture - Preliminary Blood NO GROWTH 72 HOURS PFS Medical History Acute kidney injury Alcoholism in remission Bipolar 1 disorder Cognitive impairment COPD (chronic obstructive pulmonary disease) Diabetes mellitus type II, controlled Diabetic neuropathy Diastolic dysfunction Falls frequently GERD (gastroesophageal reflux disease) Heart murmur History of alcohol abuse Hyperthyroidism Hypothyroid Left bundle branch block AVANI (obstructive sleep apnea) Pancreatitis Schizoaffective disorder Secondary Parkinson disease Subdural hematoma small right September 2018 2/2 mechanical fall Tobacco dependence Surgical History H/O abdominal surgery S/P thoracotomy Social History Smoking/Tobacco Use Status: Current every day Tobacco Type: cigarettes Smoking packs per day: 0.5 Smoking cigarettes per day: 10.0 Smoking risk assessment performed?: Yes Alcohol Intake: former Drug use: Never Substance use type: does not use Housing: senior living current occupation: Disabled. Lives at [facility] Seatbelt use: always Do you feel safe at home: Yes Do you feel safe in your relationship?: Yes Additional Social history: Resident @ [facility] [employer]
[2020-11-19] MEDS: ERTAPENEM 1 GM in Normal Saline 50 ML IVPB (12:41)
[2020-11-19] MEDS: Fosfomycin Tromethamine 3 GM PACKET PO (12:42)
--- NOTE | 2020-11-19 19:34 | PDOC.CMDIS ---
- If Service Date Differs Date of service: 11/19/20 Time of Service: 19:34 LACE Index Scoring Tool - Questions: Length of Stay (in days): 4 - 6 Acuity (Admit via E.D.?): Yes Comorbidities: Diabetes w/o Complication, Chronic Pulmonary Disease E.D. Visits: 3 - Answers: Total Score: 13 Risk of Readmission: High Risk Care Management Discharge Reason for Hospitalization: Pneumonia, UTI Discharge Plan: Danette returned to the [facility] today where she resides, coordinated by CM. She was transported via [email or web address]. She will follow up with her PCP and discharge plan of care. Patient/Family Education Needs: Review discharge plan with facility, discussion of self care needs and goals of care. Services Needed at Discharge: Shelter Facility ([facility]), Transportation ([email or web address])
[2020-11-19 23:52] LABS: Streptococcus Pneumoniae Ag, U Negative (Negative)
== END 2020-11-19 13:47 | disposition designated cancer center or children's hospital (05) | DRG 388 ==
LOC: ER 13:22 → MS 17:16
PROVIDERS: Family Medicine; Surgery; Admitting Provider Internal Medicine; Emergency Provider Physician Assistant; PCP Family Medicine; Visit Provider Internal Medicine
DX: K56.50 Intestinal adhesions [bands], unspecified as to partial versus complete obstruction (principal); J18.9 Pneumonia, unspecified organism; G93.41 Metabolic encephalopathy; J44.0 Chronic obstructive pulmonary disease with (acute) lower respiratory infection; F31.89 Other bipolar disorder; N30.00 Acute cystitis without hematuria; Z16.12 Extended spectrum beta lactamase (ESBL) resistance; E86.0 Dehydration; F20.3 Undifferentiated schizophrenia; F10.21 Alcohol dependence, in remission; J44.9 Chronic obstructive pulmonary disease, unspecified; E11.40 Type 2 diabetes mellitus with diabetic neuropathy, unspecified; R29.6 Repeated falls; K21.9 Gastro-esophageal reflux disease without esophagitis; F17.210 Nicotine dependence, cigarettes, uncomplicated; G20 Parkinson's disease; G47.33 Obstructive sleep apnea (adult) (pediatric); I44.7 Left bundle-branch block, unspecified; E03.9 Hypothyroidism, unspecified; Z20.822 Contact with and (suspected) exposure to COVID-19; Z79.4 Long term (current) use of insulin; R13.10 Dysphagia, unspecified; G31.84 Mild cognitive impairment of uncertain or unknown etiology; B96.29 Other Escherichia coli [E. coli] as the cause of diseases classified elsewhere
CPT/HCPCS: 36415; 51701; 74177; 80048; 80053; 80076; 82805; 83690; 84145; 87040; 87077; 87635; 93005; 94640; 96361; 96365; 96367; 99221; 99231; 99232; 99285; 70450; 71260; 72125; 74018; 74019; 80164; 81003; 81015; 83605; 83735; 84443; 84484; 85025; 87086; 87186; 87899; 93010; 94667; 94668; 99223; 99233; 99239; J1335; J1644; J1953; J2060; J3480; J3490; J7620

== ENCOUNTER 2020-12-13 13:13 | Outpatient (REF) | payer MEDICARE, MEDICAID, SELFPAY ==
[2020-12-13 16:39] LABS: Abs Immature Grans 0.02 10^3/uL (0.0-0.06); Absolute Basophil Count 0.03 10^3/uL (0.0-0.2); Absolute Monocyte Count 0.43 10^3/uL (0.1-0.8); Absolute Neutrophil Count 2.51 10^3/uL (1.2-6.7); Basophils % 0.5; HCT 34.4 % (36.0-46.0); HGB 10.5 g/dL (11.2-15.7); Immature Grans % 0.4; Lymphocytes % 45.5; MCH 31.3 pg (27.0-33.0); MCHC 30.5 % (32.0-36.0); MCV 102.7 fL (80-95); MPV 11.4 fL (8.0-11.0); Monocytes % 7.8; Neutrophils % 45.8; Nucleated RBC 0 %; Platelet Count 178 10^3/uL (130-400); RBC 3.35 10^6/uL (3.93-5.22); RDW 15.9 % (11.7-14.6); RDW-SD 60.1 fL; WBC 5.49 10^3/uL (4.4-10.8)
[2020-12-13 16:44] LABS: Magnesium 1.9 mg/dL (1.8-2.4)
[2020-12-13 17:12] LABS: Vitamin D 25 Total 44.2 ng/mL (30-100)
== END 2020-12-13 13:14 | disposition home or self-care (01) ==
LOC: LBN 13:13
PROVIDERS: PCP Family Medicine; Visit Provider Internal Medicine
DX: E11.40 Type 2 diabetes mellitus with diabetic neuropathy, unspecified (principal); D72.829 Elevated white blood cell count, unspecified
CPT/HCPCS: 82306; 83735; 85025

== ENCOUNTER → 2020-12-27 01:34 | Outpatient (CLI) | payer MEDICARE, MEDICAID, SELFPAY ==
--- NOTE | 2020-12-27 | DI.MAMMO_ITS ---
Exam(s) MG MAMMO SCREENING 60 MIN DUR EXAM: MG MAMMO SCREENING 60 MIN DUR CLINICAL HISTORY: SCREENING, PREVENTIVE CARE,Z00.00. TECHNIQUE: Bilateral full field digital CC and MLO mammographic images were obtained with 3D tomosyn thesis and utilizing computer aided detection (CAD). COMPARISON: Prior mammograms dating back to 2018, the most recent being December 2019. FINDINGS: There has been no significant change in the appears a distribution of the fibroglandular tissue. No new significant radiograph findings in the vicinity of the biopsy markers right breast. A benign peripherally calcified oil cyst now evident right breast. Microcalcification group posteriorly in the right breast appears unchanged from 2018 therefore probab ly benign. There is no significant architectural distortion nor skin thickening-retraction. IMPRESSION: Stable benign findings. No radiographic evidence of malignancy. BI-RADS Category 2 - Benign Findings Breast Density - Category B - Scattered areas of fibroglandular density Breast density Category C or D implies that the patient has dense breast tissue. Dense breast tissue can make it harder to find cancer on a mammogram. Dense breast tissue is also associated with an incr eased risk of breast cancer. This information about the result of the mammogram report was provided to the patient to raise their awareness. Use this report when you speak with the patient about their risks for breast cancer, which includes their family history. At that time, you may recommend additional screening tests (Ultrasoun d or MRI) as these tests may add significant information. A negative radiographic report should not delay biopsy if a dominant or clinically suspicious mass is present. Up to ten percent of cancers are not identified on mammography. A negative report may reinforce clinical impression. Adenosis and dense breasts may obscure an underlying neoplasm. False positive reports average 6 to 10%. Patient will receive a letter notifying them of these results.
== END ==
PROVIDERS: PCP Family Medicine; Visit Provider Nurse Practitioner Gerontology
DX: Z12.31 Encounter for screening mammogram for malignant neoplasm of breast (principal); R92.0 Mammographic microcalcification found on diagnostic imaging of breast; N60.01 Solitary cyst of right breast
CPT/HCPCS: 77063; 77067

== ENCOUNTER 2020-12-31 16:00 | Inpatient (IN) | payer MEDICARE, MEDICAID, SELFPAY ==
[2020-12-31] VITALS (43 sets, daily range): BP systolic 90–122; BP diastolic 40–100; PULSE 67–86; RESP 14–28; TEMP 36.1–36.6; O2SAT 96–100
--- NOTE | 2020-12-31 15:45 | DI.CT_ITS ---
Exam(s) CT ABDOMEN PELVIS W EXAM: CT ABDOMEN PELVIS W CLINICAL HISTORY: Hx SBO, vomiting, pain. Wait for CR. TECHNIQUE: Imaging Protocol: Axial computed tomography images with coronal and sagittal reformatted images were created and reviewed CONTRAST MATERIAL: Intravenous: Omnipaque 350 Contrast volume:75 ml Oral: no COMPARISON: CT CT CHEST/ABD/PEL W from 11/15/2020 FINDINGS: ABDOMEN: Lung Bases: Normal where visualized. Liver: moderate hepatic steatosis.. No measurable mass. Gallbladder and biliary tract: No radiodense calculus or dilation. Pancreas: Normal density, no abnormal calcifications or inflammatory process. Stable small cyst in th e junction of body and tail. Spleen: Normal. Kidneys: Common atrophic right kidney. Nonobstructing stones upper pole left kidney. No obstructive uropathy. No masses seen. Adrenal glands: No masses seen. Abdominal Aorta: Abdominal portion non-dilated. Heavily calcified abdominal aorta and iliac arteries. PELVIS: Bladder: Bladder catheter. No gross wall thickening. No calculi.No focal mass. Bowel: Dilated loops of small bowel with transition point in the right lower quadrant consistent with small-bowel obstruction. Moderate stool in the colon. Appendix normal. Peritoneal cavity: Small amount of fluid in the low pelvis. No perforation or abscess.. Bones: Degenerative disc changes but no significant disc space narrowing. L5 spondylolysis with mini mal spondylolisthesis. Reproductive organs: Within normal limits. Lymph nodes: Unremarkable. Impression: Small bowel obstruction. No evidence of perforation. RADIATION DOSE DELIVERED: 838.45mGy.cm Total DLP DATA REPOSITORY: All CT scans at this facility are submitted to the National Radiology Data Registry (NRDR) Dose Index Registry (DIR) with the [employer] (ACR). RADIATION OPTIMIZATION: All CT scans at this facility use at least one of these dose optimization te chniques: automated exposure control; mA and/or kV adjustment per patient size (includes targeted exa ms where dose is matched to clinical indication); or iterative reconstruction.
--- NOTE | 2020-12-31 15:45 | RT.EKG_ITS ---
APPROVED REPORT Exam: Resting ECG Reason for Exam: abd pain Patient Location: E HR:88 bpm ECG Measurements Heart Rate 88 AXIS AZ 93 P 31 QRSd 146 QRS -24 QT 398 T 152 QTc 481 Conclusion Sinus rhythm...normal P axis Left bundle branch block. ST elevation secondary to IVCD, similar to prev
--- NOTE | 2020-12-31 16:02 | W.ED.GENAD ---
Discharge Plan Disposition Patient Disposition: [facility] INPATIENT Condition: Improving Discharge Details Clinical Impression: Bowel obstruction, UTI (urinary tract infection) Primary Care Provider: Mikayla Torres ED Provider: Colt Woods Home Meds and New Rx's Prescriptions: No Action omeprazole 20 mg capsule,delayed release(DR/EC) 20 mg PO BID RF: 0 potassium chloride 10 mEq tablet extended release 30 meq PO DAILY RF: 0 benztropine 1 mg tablet 1 mg PO BID RF: 0 divalproex 500 mg tablet,delayed release (DR/EC) 2,000 mg PO .QHS RF: 0 ergocalciferol (vitamin D2) [Vitamin D2] 1,250 mcg (50,000 unit) Capsule 50,000 unit PO Q14D RF: 0 CertaVite Senior 0.4-300-250 mg-mcg-mcg Tablet 1 tab PO DAILY RF: 0 atorvastatin 40 mg Tablet 40 mg PO QPM RF: 0 torsemide 20 mg Tablet 60 mg PO DAILY RF: 0 ferrous gluconate 324 mg (37.5 mg iron) Tablet 324 mg PO BID RF: 0 polyethylene glycol 3350 17 gram/dose Powder 17 g PO DAILY RF: 0 senna 8.6 mg Capsule 17.2 mg PO .QHS RF: 0 acetaminophen [Tylenol] 325 mg Tablet 650 mg PO BID RF: 0 magnesium chloride 64 mg Tablet,Delayed Release (Dr/Ec) 128 mg PO BID RF: 0 olanzapine 5 mg tablet 5 mg PO DAILY RF: 0 buspirone 10 mg tablet 10 mg PO TID RF: 0 levothyroxine 150 mcg tablet 150 mcg PO HS RF: 0 polyvinyl alcohol-povidone 0.5-0.6 % Drops 1 drp OPHTHALMIC (EYE) TID RF: 0 Boost Liquid PO TID RF: 0 clozapine 200 mg tablet 200 mg PO QAM RF: 0 metformin 500 mg tablet 500 mg PO DAILY RF: 0 clozapine 100 mg tablet 300 mg PO QPM RF: 0 budesonide-formoterol [Symbicort] 160-4.5 mcg/actuation Hfa Aerosol Inhaler 2 puff INHALATION BID RF: 0 Medical Decision Making [id number] arrives via EMS from [facility]. She has had 1.5 days of abdominal pain, bloating, nausea and at least one episode of emesis. She arrives to the ER afebrile, interactive with a tender abdomen on exam. She has been having tachycardic per EMS that improved with 250 cc of fluid on room. Exam is concerning for recurrent bowel obstruction. IV access established patient given fluids, antiemetic and analgesic. Referred for laboratory testing and CT imaging. Patient's lactate is elevated to 3 remainder of labs show white count of 5, hematocrit 36 platelets 159. Chemistries note BUN 20, creatinine 1.4 which is somewhat worsened over baseline. Lipase is 57. Urine notes ketones, many bacteria and white blood cells. COVID-19 PCR negative. Patient's heart rate has improved to 70. CT imaging: See formal report. Multiple dilated small bowel loops with air-fluid levels. Case discussed with on-call surgery Dr. Rachel. She recommends placement of NG tube if patient has persistent vomiting. She is not a good surgical candidate and would benefit primarily from medical management. Discussed today's objective findings with Dr. Pinto and patient to be admitted. HPI General Mode of arrival: EMS. Date/Time Provider Initiated Documentation: 12/31/20 16:14. Limitations to Documentation: no limitations. Information obtained by: patient and EMS. History of Present Illness 55 year old F presents to the emergency department with the chief complaint of Abd pain, history of SBO, described as moderate, Quality is described as constant, and is localized to the abdomen. Patient reports no radiation. Patient started experiencing this hour(s) and it has been intermittent. No relieving factors improve symptom(s), No exacerbating factors reported . Patient notes nausea/vomiting; denies cough and fever/chills. Patient did receive the following treatments prior to arrival, none Related Data Home Medications Medication Instructions Recorded Confirmed budesonide-formoterol [Symbicort] 2 puff INHALATION BID 02/06/19 12/31/20 CertaVite Senior 1 tab PO DAILY 03/04/19 12/31/20 atorvastatin 40 mg PO QPM 03/04/19 12/31/20 ergocalciferol (vitamin D2) 50,000 unit PO Q14D 03/04/19 12/31/20 [Vitamin D2] ferrous gluconate 324 mg PO BID 03/04/19 12/31/20 torsemide 60 mg PO DAILY 03/04/19 12/31/20 polyethylene glycol 3350 17 g PO DAILY 04/25/19 12/31/20 senna 17.2 mg PO .QHS 04/25/19 12/31/20 benztropine 1 mg tablet 1 mg PO BID 08/04/19 12/31/20 divalproex 500 mg tablet,delayed 2,000 mg PO .QHS tab 08/04/19 12/31/20 release omeprazole 20 mg capsule,delayed 20 mg PO BID 08/04/19 12/31/20 release potassium chloride 10 mEq 30 meq PO DAILY tab 08/04/19 12/31/20 tablet,extended release acetaminophen [Tylenol] 650 mg PO BID 02/01/20 12/31/20 magnesium chloride 128 mg PO BID 02/01/20 12/31/20 buspirone 10 mg PO TID 11/15/20 12/31/20 levothyroxine 150 mcg PO HS 11/15/20 12/31/20 olanzapine 5 mg PO DAILY 11/15/20 12/31/20 polyvinyl alcohol-povidone 1 drp OPHTHALMIC (EYE) TID 11/15/20 12/31/20 clozapine 200 mg PO QAM 12/31/20 12/31/20 clozapine 300 mg PO QPM 12/31/20 12/31/20 food supplemt, lactose-reduced ml PO TID 12/31/20 [Boost] metformin 500 mg PO DAILY 12/31/20 12/31/20 Allergies Allergy/AdvReac Type Severity Reaction Status Date / Time prednisone Allergy Unknown Unverified 12/31/20 16:05 lithium Allergy Unverified 12/31/20 16:05 oxycodone [From OxyContin] Allergy Unverified 12/31/20 16:05 Penicillins Allergy Unverified 12/31/20 16:05 pioglitazone Allergy Unverified 12/31/20 16:05 Sulfa (Sulfonamide Allergy Unverified 12/31/20 16:05 Antibiotics) tramadol Allergy Unverified 12/31/20 16:05 General DIONE: 3 Review of Systems Narrative: Report of no BM for 3 days. No fever or resp illness. Question of dysuria. 8 systems reviewed and otherwise neg [facility] Medical History (Updated 12/31/20 @ 18:39 by Colt Woods MD) Acute kidney injury Alcoholism in remission Bipolar 1 disorder Cognitive impairment COPD (chronic obstructive pulmonary disease) Diabetes mellitus type II, controlled Diabetic neuropathy Diastolic dysfunction Falls frequently GERD (gastroesophageal reflux disease) Heart murmur History of alcohol abuse Hyperthyroidism Hypothyroid Left bundle branch block AVANI (obstructive sleep apnea) Pancreatitis Schizoaffective disorder Secondary Parkinson disease Subdural hematoma small right September 2018 2/2 mechanical fall Tobacco dependence Surgical History H/O abdominal surgery S/P thoracotomy Social History Smoking/Tobacco Use Status: Current every day Tobacco Type: cigarettes Smoking packs per day: 0.5 Smoking cigarettes per day: 10.0 Smoking risk assessment performed?: Yes Alcohol Intake: former Drug use: Never Substance use type: does not use Housing: snf current occupation: Disabled. Lives at [facility] Seatbelt use: always Do you feel safe at home: Yes Do you feel safe in your relationship?: Yes Additional Social history: Resident @ [facility] [employer] Exam Const General: cooperative, healthy appearing, well groomed and not in acute distress Nutritional Appearance: well nourished Orientation: alert, awake, oriented to person and oriented to place Eyes Eyelids: eyelids normal Pupils: PERRL EOM: EOM intact bilaterally Chest Chest: normal inspection of the chest and normal palpation of entire chest wall Resp Effort & Inspection: normal respiratory effort and able to speak in complete sentences Auscultation: clear to auscultation bilaterally Cardio Rate: regular rate Rhythm: regular rhythm Other: chuck GI Inspection: normal to inspection and scar Palpation: no hepatosplenomegaly Percussion: tympanic to percussion Auscultation: hypoactive bowel sounds and other (tender 3/4 quadrants) Skin General skin exam: no rashes or lesions noted Wounds: no wounds
[2020-12-31] MEDS: Normal Saline 1,000 ML 1000 ML IV (16:30)
[2020-12-31 16:34] LABS: Abs Immature Grans 0.04 10^3/uL (0.0-0.06); Absolute Basophil Count 0.01 10^3/uL (0.0-0.2); Absolute Lymphocyte Count 1.17 10^3/uL (1.2-3.4); Absolute Monocyte Count 0.94 10^3/uL (0.1-0.8); Absolute Neutrophil Count 3.59 10^3/uL (1.2-6.7); Basophils % 0.2; HCT 36.7 % (36.0-46.0); HGB 11.3 g/dL (11.2-15.7); Immature Grans % 0.7; Lymphocytes % 20.3; MCHC 30.8 % (32.0-36.0); MCV 100.8 fL (80-95); MPV 10.5 fL (8.0-11.0); Monocytes % 16.3; Neutrophils % 62.5; Nucleated RBC 0 %; Platelet Count 159 10^3/uL (130-400); RBC 3.64 10^6/uL (3.93-5.22); RDW 15.2 % (11.7-14.6); RDW-SD 56.5 fL; WBC 5.75 10^3/uL (4.4-10.8)
[2020-12-31] MEDS: Ondansetron 4 MG/2 ML VIAL IVP ×2 (16:37→19:43)
[2020-12-31] MEDS: ACETAMINOPHEN 1,000 MG/100 ML BTL 400 MG IVPB (16:39)
[2020-12-31 16:46] LABS: ALT 14 U/L (14-59); AST 25 U/L (15-37); Alkaline Phosphatase 99 U/L (46-116); Anion Gap 6.6 mmol/L (3-11); BUN 20 mg/dL (7-18); Bilirubin, Total 0.6 mg/dL (0.2-1.0); CO2 30.4 mmol/L (21.0-32.0); CREATININE 1.4 mg/dL (0.55-1.02); Calcium 8.3 mg/dL (8.5-10.1); Chloride 103 mmol/L (98-107); Estimated GFR 39.04 (mL/min/1.73m2); Glucose 156 mg/dL (74-106); Lipase 57 U/L (73-393); Magnesium 2.5 mg/dL (1.8-2.4); Potassium 4.6 mmol/L (3.5-5.1); Sodium 140 mmol/L (136-145); Total Protein 6.7 g/dL (6.4-8.2)
[2020-12-31 17:11] LABS: Source Nasal/Nares
[2020-12-31 17:16] LABS: Bilirubin Small (Negative); Blood Trace-intact (Negative); Clarity Cloudy (Clear); Glucose Negative (Negative); Ketones 15 mg/dL (Negative); Leukocyte Esterase Small (Negative); Nitrite Negative (Negative); Specific Gravity 1.025 (1.005-1.025); Urobilinogen 0.2 EU/dL (Up TO 0.2); pH 5.5 (5-8)
[2020-12-31 18:11] LABS: COVID-19 PCR Negative (Negative)
[2020-12-31 18:27] LABS: Bacteria Many HPF (Negative); Epithelial Cells Negative HPF (Negative); Other Cells Few Renal (Negative); RBC 0-2 HPF (0-2)
[2020-12-31] MEDS: Omnipaque 350 MG/ML 100 ML BTL IJ (18:27)
[2020-12-31 18:28] LABS: C & S Indicated? Yes; Casts Negative LPF (Negative); Crystals Negative HPF (Negative); Mucus Negative (Negative)
[2020-12-31] MEDS: Normal Saline - Diluent 50 ML VIAL IV (18:28)
--- NOTE | 2020-12-31 18:32 | DI.VRAD_ITS ---
Addendum created by Colt Galvan MD on 12/31/2020 7:02:36 PM EDT: THIS REPORT CONTAINS FINDINGS THAT MAY BE CRITICAL TO PATIENT CARE. The findings were communicated by report with COLT QUINTERO at 7:02 PM EDT on 12/31/2020. The findings were acknowledged and understood. Initial report created on 12/31/2020 6:32:15 PM EDT: PROCEDURE INFORMATION: Exam: CT Abdomen And Pelvis With Contrast Exam date and time: 12/31/2020 4:02 PM Age: 55 years old Clinical indication: Abdominal pain; Patient HX: HX of sbo, vomiting, pain TECHNIQUE: Imaging protocol: Computed tomography of the abdomen and pelvis with contrast. Total images: 1289 COMPARISON: CT CHEST/ABD/PEL W 11/15/2020 2:28 PM FINDINGS: Lungs: Lung bases are unremarkable. Liver: Mild diffuse hepatic steatosis. Gallbladder and bile ducts: No calcified stones, wall thickening or biliary dilatation. Pancreas: No mass or peripancreatic edema. Spleen: Homogeneously enhances. No splenomegaly. Adrenal glands: No adrenal nodule. Kidneys and ureters: Again noted is moderate right renal atrophy. 3 mm left upper pole renal calculus. Stomach and bowel: There is mild fluid distension of the gastric antrum and duodenum. There are multiple dilated small bowel loops with air-fluid levels which have increased in number since the prior study. Transitioning to normal caliber small bowel in the proximal to mid ileum. There is significant fecal loading. No significant colonic dilatation. Appendix: No evidence of appendicitis. Intraperitoneal space: No free air or free fluid. Vasculature: There is atherosclerotic disease involving the aorta and its major branches. No aortic aneurysm . Lymph nodes: No significant adenopathy. Urinary bladder: There is a Summers catheter in the bladder. Reproductive: Unremarkable as visualized. Bones/joints: No significant bony or joint space abnormality. Soft tissues: Extra-abdominal soft tissues are unremarkable. IMPRESSION: Progressing small-bowel obstruction. Dictated and Authenticated by: Colt Galvan MD. Ordering:CORRINA Gregory MD
[2020-12-31] MEDS: Normal Saline 1,000 ML 100 ML IV (18:40)
[2020-12-31 18:50] LABS: Lactate 2.5 mmol/L (0.6-1.4)
--- NOTE | 2020-12-31 18:57 | W.PM.HP.N ---
Date of service: 12/31/20 Time of Service: 18:57 Assessment and Plan Assessment and plan (1) Small bowel obstruction: Status: Acute Assessment and plan: SBO, does not appear to be a surgical matter at present. Will manage conservatively at this point with NPO and IVF; add NGT prn further vomiting. As to apparent UTI will begin Rocephin pending culture result. Will continue psychiatric meds but hold diuretic, diabetic meds and other non-essential meds so as to limit PO intake until such time as obstruction starts to yield. History of Present Illness History of Present Illness Chief Complaint: abd pain Narrative: 55 female with h/o unspecified abdominal surgery, here last month with SBO managed conservatively, here now with 1-2 days of abd pain, bloating, distension and at least one episode of vomiting. 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 In ER w/u of note for CT demonstrating dilated loops small bowel with AFL c/w SBO; no free air. ER spoke with surgery who advised conservative management with admission to medicine. I was asked to evaluate for admission. Patient has received Tylenol, IVF and Zofran. States she is still sore but has had no further vomiting. Remainder of w/u of note for initial lactate 3.0, repeat 2.5; and pyuria/bacteriuria (patient states she feels like she has a UTI). Review of Systems All systems reviewed & are unremarkable except as noted in HPI and below PFSH Medical History (Updated 12/31/20 @ 19:09 by Edy Pinto MD) Acute kidney injury Alcoholism in remission Bipolar 1 disorder Cognitive impairment COPD (chronic obstructive pulmonary disease) Diabetes mellitus type II, controlled Diabetic neuropathy Diastolic dysfunction Falls frequently GERD (gastroesophageal reflux disease) Heart murmur History of alcohol abuse Hyperthyroidism Hypothyroid Left bundle branch block AVANI (obstructive sleep apnea) Pancreatitis Schizoaffective disorder Secondary Parkinson disease Subdural hematoma small right September 2018 2/2 mechanical fall Tobacco dependence Surgical History H/O abdominal surgery S/P thoracotomy Social History Smoking/Tobacco Use Status: Current every day Tobacco Type: cigarettes Smoking packs per day: 0.5 Smoking cigarettes per day: 10.0 Smoking risk assessment performed?: Yes Alcohol Intake: former Drug use: Never Substance use type: does not use Housing: retirement current occupation: Disabled. Lives at [facility] Seatbelt use: always Do you feel safe at home: Yes Do you feel safe in your relationship?: Yes Additional Social history: Resident @ [facility][1] [facility] Allergies and Home Medications Allergies Allergy/AdvReac Type Severity Reaction Status Date / Time prednisone Allergy Unknown Unverified 12/31/20 16:05 lithium Allergy Unverified 12/31/20 16:05 oxycodone [From OxyContin] Allergy Unverified 12/31/20 16:05 Penicillins Allergy Unverified 12/31/20 16:05 pioglitazone Allergy Unverified 12/31/20 16:05 Sulfa (Sulfonamide Allergy Unverified 12/31/20 16:05 Antibiotics) tramadol Allergy Unverified 12/31/20 16:05 Home Medications Medication Instructions Recorded Confirmed Type budesonide-formoterol [Symbicort] 2 puff INHALATION BID 02/06/19 12/31/20 History CertaVite Senior 1 tab PO DAILY 03/04/19 12/31/20 History atorvastatin 40 mg PO QPM 03/04/19 12/31/20 History ergocalciferol (vitamin D2) 50,000 unit PO Q14D 03/04/19 12/31/20 History [Vitamin D2] ferrous gluconate 324 mg PO BID 03/04/19 12/31/20 History torsemide 60 mg PO DAILY 03/04/19 12/31/20 History polyethylene glycol 3350 17 g PO DAILY 04/25/19 12/31/20 History senna 17.2 mg PO .QHS 04/25/19 12/31/20 History benztropine 1 mg tablet 1 mg PO BID 08/04/19 12/31/20 History divalproex 500 mg tablet,delayed 2,000 mg PO .QHS tab 08/04/19 12/31/20 History release omeprazole 20 mg capsule,delayed 20 mg PO BID 08/04/19 12/31/20 History release potassium chloride 10 mEq 30 meq PO DAILY tab 08/04/19 12/31/20 History tablet,extended release acetaminophen [Tylenol] 650 mg PO BID 02/01/20 12/31/20 History magnesium chloride 128 mg PO BID 02/01/20 12/31/20 History buspirone 10 mg PO TID 11/15/20 12/31/20 History levothyroxine 150 mcg PO HS 11/15/20 12/31/20 History olanzapine 5 mg PO DAILY 11/15/20 12/31/20 History polyvinyl alcohol-povidone 1 drp OPHTHALMIC (EYE) TID 11/15/20 12/31/20 History clozapine 200 mg PO QAM 12/31/20 12/31/20 History clozapine 300 mg PO QPM 12/31/20 12/31/20 History food supplemt, lactose-reduced ml PO TID 12/31/20 History [Boost] metformin 500 mg PO DAILY 12/31/20 12/31/20 History Exam Narrative Exam Narrative: 106/52, 72, 36.1, 18, 97% RA. HEENT atraumatic; neck supple; lungs clear; heart RRR; abdomen: extensive ventral surgical scar, hypoactive BS, somewhat distended, soft, mild tenderness periumbilical area, no rebound; extremities w/o edema; neuro Ox3, moves all 4s Results Labs Result diagrams: 12/31/20 16:23 12/31/20 16:23 Labs: Laboratory Results - last 24 hr 12/31/20 12/31/20 12/31/20 16:23 16:23 16:23 WBC 5.75 RBC 3.64 L Hgb 11.3 Hct 36.7 MCV 100.8 H MCH 31.0 MCHC 30.8 L RDW 15.2 H Plt Count 159 MPV 10.5 Immature Gran % 0.7 Neutrophils % 62.5 Lymphocytes % 20.3 Monocytes % 16.3 Eosinophils % 0.0 Basophils % 0.2 Nucleated RBC % 0 Absolute Neutrophils 3.59 Absolute Lymphocytes 1.17 L Absolute Monocytes 0.94 H Absolute Eosinophils 0.00 Absolute Basophils 0.01 VBG Lactate 3.0 H* Sodium 140 Potassium 4.6 Chloride 103 Carbon Dioxide 30.4 Anion Gap 6.6 BUN 20 H Creatinine 1.4 H Estimated GFR/1.73 m2 39.04 Glucose 156 H Calcium 8.3 L Magnesium 2.5 H Total Bilirubin 0.6 AST 25 ALT 14 Alkaline Phosphatase 99 Total Protein 6.7 Albumin 2.0 L Lipase 57 Urine Color Urine Clarity Urine pH Ur Specific [place] Urine Protein Urine Ketones Urine Blood Urine Nitrite Urine Bilirubin Urine Urobilinogen Ur Leukocyte Esterase Urine RBC Urine WBC Ur Epithelial Cells Urine Crystals Urine Bacteria Urine Casts Urine Mucus Urine Other Ur Culture Indicated? Urine Glucose COVID-19 Source SARS-CoV-2 (PCR) 12/31/20 12/31/20 12/31/20 17:05 17:07 18:10 WBC RBC Hgb Hct MCV MCH MCHC RDW Plt Count MPV Immature Gran % Neutrophils % Lymphocytes % Monocytes % Eosinophils % Basophils % Nucleated RBC % Absolute Neutrophils Absolute Lymphocytes Absolute Monocytes Absolute Eosinophils Absolute Basophils VBG Lactate 2.5 H* Sodium Potassium Chloride Carbon Dioxide Anion Gap BUN Creatinine Estimated GFR/1.73 m2 Glucose Calcium Magnesium Total Bilirubin AST ALT Alkaline Phosphatase Total Protein Albumin Lipase Urine Color Yellow Urine Clarity Cloudy Urine pH 5.5 Ur Specific [place] 1.025 Urine Protein 30 H Urine Ketones 15 H Urine Blood Trace-intact H Urine Nitrite Negative Urine Bilirubin Small H Urine Urobilinogen 0.2 Ur Leukocyte Esterase Small H Urine RBC Cancelled Urine WBC Cancelled Ur Epithelial Cells Cancelled Urine Crystals Cancelled Urine Bacteria Cancelled Urine Casts Cancelled Urine Mucus Cancelled Urine Other Cancelled Ur Culture Indicated? Cancelled Urine Glucose Negative COVID-19 Source Nasal/Nares SARS-CoV-2 (PCR) Negative 12/31/20 18:10 WBC RBC Hgb Hct MCV MCH MCHC RDW Plt Count MPV Immature Gran % Neutrophils % Lymphocytes % Monocytes % Eosinophils % Basophils % Nucleated RBC % Absolute Neutrophils Absolute Lymphocytes Absolute Monocytes Absolute Eosinophils Absolute Basophils VBG Lactate Sodium Potassium Chloride Carbon Dioxide Anion Gap BUN Creatinine Estimated GFR/1.73 m2 Glucose Calcium Magnesium Total Bilirubin AST ALT Alkaline Phosphatase Total Protein Albumin Lipase Urine Color Urine Clarity Urine pH Ur Specific [place] Urine Protein Urine Ketones Urine Blood Urine Nitrite Urine Bilirubin Urine Urobilinogen Ur Leukocyte Esterase Urine RBC 0-2 Urine WBC 5-10 Ur Epithelial Cells Negative Urine Crystals Negative Urine Bacteria Many Urine Casts Negative Urine Mucus Negative Urine Other Few Renal Ur Culture Indicated? Yes Urine Glucose COVID-19 Source SARS-CoV-2 (PCR) Last Vital Signs Temp 36.1 C L 12/31/20 16:04 Pulse 78 12/31/20 16:54 Resp 22 12/31/20 16:54 BP 114/61 12/31/20 16:54 Pulse Ox 100 12/31/20 16:54
--- NOTE | 2020-12-31 20:17 | W.SURGCON ---
Date of service: 01/01/21 Time of Service: 10:55 Assessment and Plan Assessment and plan (1) Small bowel obstruction: Status: Acute Assessment and plan: -medical management & supportive care. Pt is poor surgical candidate. GI/DVT proph. -Patient refuses to cooperate with medical management including an NG tube. Patient up walking around. Patient has been deemed competent to make her own medical decisions. Patient is not making good choices at this time. Patient is also not receiving her psych meds because of her bowel obstruction 75 mins spent in counseltaton (2) Schizoaffective disorder: Status: Acute Qualifiers: Schizoaffective disorder type: bipolar Qualified Code(s): F25.0 - Schizoaffective disorder, bipolar type (3) Diastolic dysfunction: Status: Chronic (4) UTI (urinary tract infection): Status: Resolved Qualifiers: Hematuria presence: without hematuria Urinary tract infection type: acute cystitis Qualified Code(s): N30.00 - Acute cystitis without hematuria (5) Falls frequently: Status: Resolved (6) Cognitive impairment: Status: Acute (7) Diabetes mellitus type II, controlled: Status: Acute Qualifiers: Diabetes mellitus complication status: without complication Diabetes mellitus termite treater insulin use: without senior care use Qualified Code(s): E11.9 - Type 2 diabetes mellitus without complications (8) Hypothyroid: Status: Chronic Qualifiers: Hypothyroidism type: acquired Qualified Code(s): E03.9 - Hypothyroidism, unspecified (9) COPD (chronic obstructive pulmonary disease): Status: Chronic Qualifiers: COPD type: unspecified COPD Qualified Code(s): J44.9 - Chronic obstructive pulmonary disease, unspecified (10) Diabetic neuropathy: Status: Acute (11) Secondary Parkinson disease: Status: Acute (12) Schizophrenia: Status: Suspected Qualifiers: Schizophrenia type: undifferentiated schizophrenia Qualified Code(s): F20.3 - Undifferentiated schizophrenia (13) Anemia: Status: Chronic Assessment and plan: labs are pd (14) Protein-calorie malnutrition, mild: Status: Acute (15) Chronic constipation: Status: Acute Assessment and plan: fleets History of Present Illness Narrative: pt present w/ n/v & abdominal pain-1-2 days of abd pain, bloating, distension and at least one episode of vomiting. Last BM [address] reviewed Pt would not allow an NGT to be inserted on last admission pt had an ex lap- she does not know why. Patient is from a long-term. She cannot give any history. She refuses to comply with cares. Refuses to comply with medical interventions. Patient cannot be reasoned with secondary to her poor comprehension and understanding. However patient has been deemed mentally capable of making her own medical decisions and is her only. Patient has been nauseated and vomiting all morning. She did have a bowel movement last night with the The patient does not know what surgery she had Patient has been somnolent today. She does cry out when I palpate her abdomen. She does have a few bowel sounds. CT: Stomach and bowel: There is mild fluid distension of the gastric antrum and duodenum. There are multiple dilated small bowel loops with air-fluid levels which have increased in number since the prior study. Transitioning to normal caliber small bowel in the proximal to mid ileum. There is significant fecal loading. No significant colonic dilatation 11/19: Narrative: pt is a poor historian. The information is taken from the chart. amitted for pneumonia, dehydration and failure to thrive. We did review her charts in the note. c/o nausea and abdom pain as well. no vomiting. pt has had an ex lap. She does not know why. she has pain along the inferior portion of old incision. no hernias. minimal BS. CT reviewed. no free air or fluid. if she starts vomiting- place ngt. I did attempt to look her up in [facility]. They have no record of her being admitted there under this name. I was not able to find any old records on her Consults Consult date: 01/01/21 Review of Systems Unobtainable due to mental condition [facility] Medical History (Updated 12/31/20 @ 20:36 by Isela Rachel DO) Acute kidney injury Alcoholism in remission Bipolar 1 disorder Cognitive impairment COPD (chronic obstructive pulmonary disease) Diabetes mellitus type II, controlled Diabetic neuropathy Diastolic dysfunction Falls frequently GERD (gastroesophageal reflux disease) Heart murmur History of alcohol abuse Hyperthyroidism Hypothyroid Left bundle branch block AVANI (obstructive sleep apnea) Pancreatitis Schizoaffective disorder Secondary Parkinson disease Subdural hematoma small right September 2018 2/2 mechanical fall Tobacco dependence Surgical History H/O abdominal surgery S/P thoracotomy Social History Smoking/Tobacco Use Status: Current every day Tobacco Type: cigarettes Smoking packs per day: 0.5 Smoking cigarettes per day: 10.0 Smoking risk assessment performed?: Yes Alcohol Intake: former Drug use: Never Substance use type: does not use Housing: prison current occupation: Disabled. Lives at [facility] Seatbelt use: always Do you feel safe at home: Yes Do you feel safe in your relationship?: Yes Additional Social history: Resident @ [employer] [facility] [employer] Exam Const General: uncooperative Other: Patient reffuses wake up to cooperate with exam. Nursing states she was awake earlier. She has been very sleepy all morning, but she was up all night. Cardio Palpation: abnormal PMI Rate: regular rate Rhythm: regular rhythm GI Other: Patient has a vertical midline scar. I do not palpate any hernias. She is Fuhs abdominal tenderness with palpation. She has no distention. She does have very few faint bowel sounds. Results Last Vital Signs Temp 36.1 C L 12/31/20 16:04 Pulse 78 12/31/20 20:03 Resp 17 12/31/20 20:10 BP 105/59 L 12/31/20 20:03 Pulse Ox 98 12/31/20 20:10 Labs Result diagrams: 01/01/21 07:22 01/01/21 07:22 Labs: Laboratory Results - last 24 hr 12/31/20 12/31/20 12/31/20 16:23 16:23 16:23 WBC 5.75 RBC 3.64 L Hgb 11.3 Hct 36.7 MCV 100.8 H MCH 31.0 MCHC 30.8 L RDW 15.2 H Plt Count 159 MPV 10.5 Immature Gran % 0.7 Neutrophils % 62.5 Lymphocytes % 20.3 Monocytes % 16.3 Eosinophils % 0.0 Basophils % 0.2 Nucleated RBC % 0 Absolute Neutrophils 3.59 Absolute Lymphocytes 1.17 L Absolute Monocytes 0.94 H Absolute Eosinophils 0.00 Absolute Basophils 0.01 VBG Lactate 3.0 H* Sodium 140 Potassium 4.6 Chloride 103 Carbon Dioxide 30.4 Anion Gap 6.6 BUN 20 H Creatinine 1.4 H Estimated GFR/1.73 m2 39.04 Glucose 156 H Calcium 8.3 L Magnesium 2.5 H Total Bilirubin 0.6 AST 25 ALT 14 Alkaline Phosphatase 99 Total Protein 6.7 Albumin 2.0 L Lipase 57 Urine Color Urine Clarity Urine pH Ur Specific [place] Urine Protein Urine Ketones Urine Blood Urine Nitrite Urine Bilirubin Urine Urobilinogen Ur Leukocyte Esterase Urine RBC Urine WBC Ur Epithelial Cells Urine Crystals Urine Bacteria Urine Casts Urine Mucus Urine Other Ur Culture Indicated? Urine Glucose COVID-19 Source SARS-CoV-2 (PCR) 12/31/20 12/31/20 12/31/20 17:05 17:07 18:10 WBC RBC Hgb Hct MCV MCH MCHC RDW Plt Count MPV Immature Gran % Neutrophils % Lymphocytes % Monocytes % Eosinophils % Basophils % Nucleated RBC % Absolute Neutrophils Absolute Lymphocytes Absolute Monocytes Absolute Eosinophils Absolute Basophils VBG Lactate 2.5 H* Sodium Potassium Chloride Carbon Dioxide Anion Gap BUN Creatinine Estimated GFR/1.73 m2 Glucose Calcium Magnesium Total Bilirubin AST ALT Alkaline Phosphatase Total Protein Albumin Lipase Urine Color Yellow Urine Clarity Cloudy Urine pH 5.5 Ur Specific [place] 1.025 Urine Protein 30 H Urine Ketones 15 H Urine Blood Trace-intact H Urine Nitrite Negative Urine Bilirubin Small H Urine Urobilinogen 0.2 Ur Leukocyte Esterase Small H Urine RBC Cancelled Urine WBC Cancelled Ur Epithelial Cells Cancelled Urine Crystals Cancelled Urine Bacteria Cancelled Urine Casts Cancelled Urine Mucus Cancelled Urine Other Cancelled Ur Culture Indicated? Cancelled Urine Glucose Negative COVID-19 Source Nasal/Nares SARS-CoV-2 (PCR) Negative 12/31/20 18:10 WBC RBC Hgb Hct MCV MCH MCHC RDW Plt Count MPV Immature Gran % Neutrophils % Lymphocytes % Monocytes % Eosinophils % Basophils % Nucleated RBC % Absolute Neutrophils Absolute Lymphocytes Absolute Monocytes Absolute Eosinophils Absolute Basophils VBG Lactate Sodium Potassium Chloride Carbon Dioxide Anion Gap BUN Creatinine Estimated GFR/1.73 m2 Glucose Calcium Magnesium Total Bilirubin AST ALT Alkaline Phosphatase Total Protein Albumin Lipase Urine Color Urine Clarity Urine pH Ur Specific [place] Urine Protein Urine Ketones Urine Blood Urine Nitrite Urine Bilirubin Urine Urobilinogen Ur Leukocyte Esterase Urine RBC 0-2 Urine WBC 5-10 Ur Epithelial Cells Negative Urine Crystals Negative Urine Bacteria Many Urine Casts Negative Urine Mucus Negative Urine Other Few Renal Ur Culture Indicated? Yes Urine Glucose COVID-19 Source SARS-CoV-2 (PCR)
[2020-12-31] MEDS: Normal Saline 1,000 ML 125 ML IV (20:51)
[2020-12-31] MEDS: Divalproex 500 MG TABEC 2000 MG PO (21:55)
[2020-12-31] MEDS: busPIRone 5 MG TAB 10 MG PO (21:56)
[2020-12-31] MEDS: Pantoprazole 40 MG VIAL IVP (21:56)
[2020-12-31] MEDS: Normal Saline Flush 10 ML SYR IVP (21:56)
[2020-12-31] MEDS: Benztropine 1 MG TAB PO (22:19)
[2020-12-31] MEDS: Budesonide/Formoterol 160/4.5 6 GM 60 PUFF INH IH (22:19)
[2020-12-31] MEDS: MacroBID 100 MG CAP PO (22:49)
[2020-12-31] MEDS: Refresh PLUS Eye Drops 0.4ml OP (22:49)
--- NOTE | 2021-01-01 | DI.RAD_ITS ---
Exam(s) XR ABDOMEN FLAT UPRIGHT EXAM: 2D digital imaging was performed. CLINICAL HISTORY: sbo. COMPARISON: CT CT ABDOMEN PELVIS W from 12/31/2020 TECHNIQUE: Supine and uprightSupine and Lateral views of the abdomen was performed. FINDINGS: BOWEL GAS PATTERN: Stable appearance of dilated loops of small bowel in the mid abdomen. No free air . CALCIFICATIONS: No radiopaque calcifications. OSSEOUS STRUCTURES: Normal for age. OTHER FINDINGS: Residual contrast in renal collecting systems and bladder related to previous CT. IMPRESSION: No change in degree of small bowel dilatation. No free air. DATA REPOSITORY: RADIATION DOSE DELIVERED:
[2021-01-01 00:07] VITALS: BP 110/61; PULSE 78; RESP 22; TEMP 36.6; O2SAT 98
[2021-01-01] MEDS: Normal Saline 1,000 ML 125 ML IV ×2 (05:58→16:59)
[2021-01-01] MEDS: Ondansetron 4 MG/2 ML VIAL IVP (06:57)
[2021-01-01] MEDS: Normal Saline Flush 10 ML SYR IVP (06:57)
[2021-01-01] MEDS: Budesonide/Formoterol 160/4.5 6 GM 60 PUFF INH IH ×2 (07:44→22:17)
[2021-01-01 07:45] LABS: HCT 34.2 % (36.0-46.0); HGB 10.8 g/dL (11.2-15.7); MCH 31.3 pg (27.0-33.0); MCHC 31.6 % (32.0-36.0); MCV 99.1 fL (80-95); MPV 10.3 fL (8.0-11.0); Platelet Count 143 10^3/uL (130-400); RBC 3.45 10^6/uL (3.93-5.22); RDW 15.5 % (11.7-14.6); RDW-SD 56.7 fL; WBC 6.28 10^3/uL (4.4-10.8)
[2021-01-01 07:53] LABS: Anion Gap 7.5 mmol/L (3-11); BUN 23 mg/dL (7-18); CO2 29.5 mmol/L (21.0-32.0); CREATININE 1.1 mg/dL (0.55-1.02); Calcium 7.8 mg/dL (8.5-10.1); Chloride 106 mmol/L (98-107); Estimated GFR 51.57 (mL/min/1.73m2); Glucose 95 mg/dL (74-106); Potassium 3.8 mmol/L (3.5-5.1); Sodium 143 mmol/L (136-145)
[2021-01-01 08:35] LABS: Vitamin B12 1383 pg/mL (193-986)
[2021-01-01 08:41] VITALS: BP 104/64; PULSE 83; RESP 20; TEMP 36.4; O2SAT 99
[2021-01-01 08:50] LABS: Iron 21 ug/dL (50-170); Total Iron Binding Capacity 123 ug/dL (250-450); Transferrin Sat 17 % (15-50)
--- NOTE | 2021-01-01 09:07 | INITIAL_ITS ---
- If Service Date Differs Date of service: 01/01/21 Time of Service: 09:07 Care Management Initial Assess REASON FOR HOSPITALIZATION:: SBO PAST MEDICAL HISTORY/PAST SURGICAL HISTORY:: Acute kidney injury. Alcoholism in remission. Bipolar 1 disorder. Cognitive impairment. COPD (chronic obstructive pulmonary disease). Diabetes mellitus type II, controlled. Diabetic neuropathy. Diastolic dysfunction. Falls frequently. GERD (gastroesophageal reflux disease). Heart murmur. History of alcohol abuse. Hyperthyroidism. Hypothyroid. Left bundle branch block. AVANI (obstructive sleep apnea). Pancreatitis. Schizoaffective disorder. Secondary Parkinson disease. Subdural hematoma. small right September 201804/10 mechanical fall. Tobacco dependence. H/O abdominal surgery. S/P thoracotomy PREVIOUS FUNCTIONAL STATUS/SOCIAL/FAMILY SUPPORTS:: Danette resides at the [facility] in [place], [place]. Her mother resides in [place]. She initially discharged to the [facility] from [facility] for rehab over two years ago. Before that she had been living in a residential ([facility]) in [place] . Estephanie left The [facility] after a few weeks, returned to [facility] and then returned to the [facility]. Estephanie has a long history of mental health issues. She was once and used to work but she has been for about 10 years and is now disabled. She is independent with care. Estephanie has a mother and a brother and her brother is her DPOA. CURRENT FUNCTIONAL STATUS:: Reportedly, Danette had a bowel movement last night. She remains acute and NPO at this time. ADVANCE DIRECTIVES:: [facility] on file. Has patient been provided with info about the portal/API?: No Did the patient sign up for the portal?: No CODE STATUS:: Full Code INSURANCE COVERAGE / FINANCIAL ISSUES:: Medicaid. Medicare CURRENT HOME/COMMUNITY SERVICES/EQUIPMENT:: Danette currently resides at the [facility] where she receives support for ADL's. PRIMARY CARE PHYSICIAN:: Mikayla Torres POTENTIAL DISCHARGE NEEDS:: Follow up appointments, coordinated return to the [facility]. PATIENT/FAMILY EDUCATION NEEDS:: Review discharge instructions with pt and facility staff, discussion of self care needs and goals of care. ANTICIPATED BARRIERS TO DISCHARGE:: None identified at this time. TRANSPORTATION:: w/c van vs EMS, depending on mobility at time of transfer. PLAN:: Laurieann will return the the [facility] once medically cleared. CM will coordinate this return, including transportation which will be determined by her mobility. She will follow up with her PCP and discharge plan of care. CM will continue to follow.
[2021-01-01 09:50] LABS: Lactate 1.5 mmol/L (0.6-1.4)
[2021-01-01 11:05] LABS: C-Reactive Protein 10.66 mg/dL (0.0-0.3)
[2021-01-01] MEDS: IRON SUCROSE COMPLEX 200 MG in Normal Saline 100 ML 400 MG IVPB (12:16)
--- NOTE | 2021-01-01 12:24 | W.PM.PROGNOT ---
Date of Service Date of service: 01/01/21 Time of Service: 12:24 Assessment and Plan Assessment and plan (1) Small bowel obstruction: Status: Acute Assessment and plan: SBO, surgery consulted and not surgical candidate. Will continue to manage conservatively with NPO and IVF; encourage NGT (2) UTI (urinary tract infection): Status: Acute Assessment and plan: culture pending. continue ceftriaxone day 2 (3) Schizoaffective disorder: Status: Chronic Assessment and plan: stable, continue home medication with sips Qualifiers: Schizoaffective disorder type: bipolar Qualified Code(s): F25.0 - Schizoaffective disorder, bipolar type (4) Diabetes mellitus type II, controlled: Status: Acute Assessment and plan: fasting glucose today is 95, add blood sugar checks q6 hour while npo. hold metformin while npo. 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 complication status: without complication Diabetes mellitus intermediate manager insulin use: without custodial use Qualified Code(s): E11.9 - Type 2 diabetes mellitus without complications (5) COPD (chronic obstructive pulmonary disease): Status: Chronic Assessment and plan: stable Qualifiers: COPD type: unspecified COPD Qualified Code(s): J44.9 - Chronic obstructive pulmonary disease, unspecified (6) Hypothyroid: Status: Chronic Assessment and plan: TSH 0.81 in Nov 2020, will continue levothyroxine discussed with Dr Olivares Qualifiers: Hypothyroidism type: acquired Qualified Code(s): E03.9 - Hypothyroidism, unspecified Subjective Subjective Patient reports: still having pain, no flatus, bowel movement (overnight after a fleet enema), nausea, vomiting and afebrile Interval history since last seen: patient remains nauseated with abdominal pain. Exam Const General: frail appearing and ill appearing (older appearing than stated age) chronically Nutritional Appearance: well nourished Orientation: alert, awake, oriented to person and oriented to place Eyes Eyelids: eyelids normal Pupils: PERRL EOM: EOM intact bilaterally Chest Chest: normal inspection of the chest Resp Effort & Inspection: normal respiratory effort and able to speak in complete sentences Auscultation: clear to auscultation bilaterally Cardio Rate: regular rate Rhythm: regular rhythm GI Inspection: normal to inspection, distended and scar Palpation: firm and tender (generalized) other Auscultation: hypoactive bowel sounds Skin General skin exam: no rashes or lesions noted Wounds: no wounds Objective Last Vital Signs Temp 36.4 C L 01/01/21 08:41 Pulse 83 01/01/21 08:41 Resp 20 01/01/21 08:41 BP 104/64 01/01/21 08:41 Pulse Ox 99 01/01/21 08:41 Laboratory Results - last 24 hr 12/31/20 12/31/20 12/31/20 16:23 16:23 16:23 WBC 5.75 RBC 3.64 L Hgb 11.3 Hct 36.7 MCV 100.8 H MCH 31.0 MCHC 30.8 L RDW 15.2 H Plt Count 159 MPV 10.5 Immature Gran % 0.7 Neutrophils % 62.5 Lymphocytes % 20.3 Monocytes % 16.3 Eosinophils % 0.0 Basophils % 0.2 Nucleated RBC % 0 Absolute Neutrophils 3.59 Absolute Lymphocytes 1.17 L Absolute Monocytes 0.94 H Absolute Eosinophils 0.00 Absolute Basophils 0.01 VBG Lactate 3.0 H* Sodium 140 Potassium 4.6 Chloride 103 Carbon Dioxide 30.4 Anion Gap 6.6 BUN 20 H Creatinine 1.4 H Estimated GFR/1.73 m2 39.04 Glucose 156 H Calcium 8.3 L Magnesium 2.5 H Iron TIBC Transferrin % Sat Total Bilirubin 0.6 AST 25 ALT 14 Alkaline Phosphatase 99 C-Reactive Protein Total Protein 6.7 Albumin 2.0 L Lipase 57 Vitamin B12 Urine Color Urine Clarity Urine pH Ur Specific [place] Urine Protein Urine Ketones Urine Blood Urine Nitrite Urine Bilirubin Urine Urobilinogen Ur Leukocyte Esterase Urine RBC Urine WBC Ur Epithelial Cells Urine Crystals Urine Bacteria Urine Casts Urine Mucus Urine Other Ur Culture Indicated? Urine Glucose COVID-19 Source SARS-CoV-2 (PCR) 12/31/20 12/31/20 12/31/20 17:05 17:07 18:10 WBC RBC Hgb Hct MCV MCH MCHC RDW Plt Count MPV Immature Gran % Neutrophils % Lymphocytes % Monocytes % Eosinophils % Basophils % Nucleated RBC % Absolute Neutrophils Absolute Lymphocytes Absolute Monocytes Absolute Eosinophils Absolute Basophils VBG Lactate 2.5 H* Sodium Potassium Chloride Carbon Dioxide Anion Gap BUN Creatinine Estimated GFR/1.73 m2 Glucose Calcium Magnesium Iron TIBC Transferrin % Sat Total Bilirubin AST ALT Alkaline Phosphatase C-Reactive Protein Total Protein Albumin Lipase Vitamin B12 Urine Color Yellow Urine Clarity Cloudy Urine pH 5.5 Ur Specific [place] 1.025 Urine Protein 30 H Urine Ketones 15 H Urine Blood Trace-intact H Urine Nitrite Negative Urine Bilirubin Small H Urine Urobilinogen 0.2 Ur Leukocyte Esterase Small H Urine RBC Cancelled Urine WBC Cancelled Ur Epithelial Cells Cancelled Urine Crystals Cancelled Urine Bacteria Cancelled Urine Casts Cancelled Urine Mucus Cancelled Urine Other Cancelled Ur Culture Indicated? Cancelled Urine Glucose Negative COVID-19 Source Nasal/Nares SARS-CoV-2 (PCR) Negative 12/31/20 01/01/21 01/01/21 18:10 07:22 07:22 WBC 6.28 RBC 3.45 L Hgb 10.8 L Hct 34.2 L MCV 99.1 H MCH 31.3 MCHC 31.6 L RDW 15.5 H Plt Count 143 MPV 10.3 Immature Gran % Neutrophils % Lymphocytes % Monocytes % Eosinophils % Basophils % Nucleated RBC % Absolute Neutrophils Absolute Lymphocytes Absolute Monocytes Absolute Eosinophils Absolute Basophils VBG Lactate Sodium 143 Potassium 3.8 Chloride 106 Carbon Dioxide 29.5 Anion Gap 7.5 BUN 23 H Creatinine 1.1 H Estimated GFR/1.73 m2 51.57 Glucose 95 D Calcium 7.8 L Magnesium Iron TIBC Transferrin % Sat Total Bilirubin AST ALT Alkaline Phosphatase C-Reactive Protein Total Protein Albumin Lipase Vitamin B12 Urine Color Urine Clarity Urine pH Ur Specific [place] Urine Protein Urine Ketones Urine Blood Urine Nitrite Urine Bilirubin Urine Urobilinogen Ur Leukocyte Esterase Urine RBC 0-2 Urine WBC 5-10 Ur Epithelial Cells Negative Urine Crystals Negative Urine Bacteria Many Urine Casts Negative Urine Mucus Negative Urine Other Few Renal Ur Culture Indicated? Yes Urine Glucose COVID-19 Source SARS-CoV-2 (PCR) 01/01/21 01/01/21 01/01/21 07:22 07:22 07:22 WBC RBC Hgb Hct MCV MCH MCHC RDW Plt Count MPV Immature Gran % Neutrophils % Lymphocytes % Monocytes % Eosinophils % Basophils % Nucleated RBC % Absolute Neutrophils Absolute Lymphocytes Absolute Monocytes Absolute Eosinophils Absolute Basophils VBG Lactate Sodium Potassium Chloride Carbon Dioxide Anion Gap BUN Creatinine Estimated GFR/1.73 m2 Glucose Calcium Magnesium Iron 21 L TIBC 123 L Transferrin % Sat 17 Total Bilirubin AST ALT Alkaline Phosphatase C-Reactive Protein 10.66 H Total Protein Albumin Lipase Vitamin B12 1383 H Urine Color Urine Clarity Urine pH Ur Specific [place] Urine Protein Urine Ketones Urine Blood Urine Nitrite Urine Bilirubin Urine Urobilinogen Ur Leukocyte Esterase Urine RBC Urine WBC Ur Epithelial Cells Urine Crystals Urine Bacteria Urine Casts Urine Mucus Urine Other Ur Culture Indicated? Urine Glucose COVID-19 Source SARS-CoV-2 (PCR) 01/01/21 09:40 WBC RBC Hgb Hct MCV MCH MCHC RDW Plt Count MPV Immature Gran % Neutrophils % Lymphocytes % Monocytes % Eosinophils % Basophils % Nucleated RBC % Absolute Neutrophils Absolute Lymphocytes Absolute Monocytes Absolute Eosinophils Absolute Basophils VBG Lactate 1.5 H Sodium Potassium Chloride Carbon Dioxide Anion Gap BUN Creatinine Estimated GFR/1.73 m2 Glucose Calcium Magnesium Iron TIBC Transferrin % Sat Total Bilirubin AST ALT Alkaline Phosphatase C-Reactive Protein Total Protein Albumin Lipase Vitamin B12 Urine Color Urine Clarity Urine pH Ur Specific [place] Urine Protein Urine Ketones Urine Blood Urine Nitrite Urine Bilirubin Urine Urobilinogen Ur Leukocyte Esterase Urine RBC Urine WBC Ur Epithelial Cells Urine Crystals Urine Bacteria Urine Casts Urine Mucus Urine Other Ur Culture Indicated? Urine Glucose COVID-19 Source SARS-CoV-2 (PCR)
--- NOTE | 2021-01-01 14:15 | DI.RAD_ITS ---
Exam(s) XR ABDOMEN FLAT PLATE EXAM: 2D digital imaging was performed. CLINICAL HISTORY: Post NG tube placement. COMPARISON: CR XR ABDOMEN FLAT UPRIGHT from 01/01/2021 TECHNIQUE: Supine views of the abdomen performed. Portable exam FINDINGS: BOWEL GAS PATTERN: Slight improvement in degree of small bowel dilatation. . CALCIFICATIONS: No radiopaque calcifications. OSSEOUS STRUCTURES: Normal for age. OTHER FINDINGS: NG tube has been placed which projects in the stomach. IMPRESSION: 1. Mild improvement in the degree of small-bowel dilatation status post placement of a NG tube.. DATA REPOSITORY: RADIATION DOSE DELIVERED:
--- NOTE | 2021-01-01 14:24 | W.NUTRFU ---
Date of service: 01/01/21 Time of Service: 14:24 Nutritional Follow up NOTE: Assessment: 55yo woman admitted for SBO and UTI with PMH significant for COPD, alcoholism, DMII w/ neuropathy, GERD, pancreatitis, and cognitive impairment. Meds include Benztropine, Buspar, clozapine, dibalproex, iron, nitrofurantoin, olanzapine, ondansetron, and promethazine. Last A1C was July 2020 (7.1%) and was c/w good control. Weight has been stable. BMI of 29.7kg/m2 is in the overweight category. Noted 2nd day of NPO status as part of SBO conservative tx. Resides at the [facility] and received support for ADL?s. Estimated nutrition needs: 1566kcals (REEX1.3), 103g protein (1.5g/kg) and 2067mL fluid (age adj method). Diagnosis: No nutrition-related Dx at this time Intervention: Recommend advance diet as medically appropriate to CHO consistent diet with normal texture. Will approach pt once po intake resume to educate on fiber/fluid intake to help prevent constipation. Monitoring/ evaluation: will monitor for resumption of po intake/toleration, changes in weights/labs/meds. Terry Margarita NDTR ? Dress Draper Time Spent in Nutritional Counseling and Treatment: 0
[2021-01-01 15:38] VITALS: BP 124/82; PULSE 82; RESP 16; TEMP 36; O2SAT 100
[2021-01-01] MEDS: DEXTROSE 5%-0.9% SALINE 1,000 ML 125 ML IV (22:05)
[2021-01-01] MEDS: Benztropine 1 MG TAB PO (22:08)
[2021-01-01] MEDS: MacroBID 100 MG CAP PO (22:08)
[2021-01-01] MEDS: busPIRone 5 MG TAB 10 MG PO (22:08)
[2021-01-01] MEDS: OLANZapine 5 MG TAB PO (22:08)
[2021-01-01] MEDS: Refresh PLUS Eye Drops 0.4ml OP (22:09)
[2021-01-01 23:35] VITALS: BP 94/51; PULSE 71; RESP 20; TEMP 35.2; O2SAT 98
[2021-01-02 06:44] VITALS: BP 121/67; PULSE 73; RESP 18; TEMP 35.9; O2SAT 99
--- NOTE | 2021-01-02 07:00 | DI.RAD_ITS ---
Exam(s) XR ABDOMEN FLAT UPRIGHT EXAM: XR ABDOMEN FLAT UPRIGHT CLINICAL HISTORY: sbo. TECHNIQUE: 2D digital imaging was performed. COMPARISON: CT CT ABDOMEN PELVIS W from 12/31/2020 CR XR ABDOMEN FLAT PLATE from 01/01/2021 CR XR ABDOMEN FLAT PLATE from 01/01/2021 FINDINGS: AP supine view the abdomen dated 01/02/2021, compared to 01/01/2021. NG tube is again noted in satisfactory position in the stomach, unchanged. The stomach is not disten ded. However, there is still air-filled distended small bowel loops the central and right side of th e abdomen consistent element of small bowel obstruction. Cannot accurately assess for free air as th is is a supine image. IMPRESSION: As above. Minimal change from yesterday. NG tube in satisfactory position. DATA REPOSITORY: RADIATION DOSE DELIVERED:
[2021-01-02 07:13] LABS: Abs Immature Grans 0.07 10^3/uL (0.0-0.06); Absolute Basophil Count 0.03 10^3/uL (0.0-0.2); Absolute Lymphocyte Count 1.39 10^3/uL (1.2-3.4); Absolute Monocyte Count 0.69 10^3/uL (0.1-0.8); Absolute Neutrophil Count 3.28 10^3/uL (1.2-6.7); Basophils % 0.5; HCT 33.1 % (36.0-46.0); HGB 10.1 g/dL (11.2-15.7); Immature Grans % 1.3; Lymphocytes % 25.5; MCH 31.5 pg (27.0-33.0); MCHC 30.5 % (32.0-36.0); MCV 103.1 fL (80-95); MPV 10.1 fL (8.0-11.0); Monocytes % 12.6; Neutrophils % 60.1; Nucleated RBC 0 %; Platelet Count 137 10^3/uL (130-400); RBC 3.21 10^6/uL (3.93-5.22); RDW 15.5 % (11.7-14.6); RDW-SD 59.2 fL; WBC 5.46 10^3/uL (4.4-10.8)
[2021-01-02 07:35] LABS: Anion Gap 6.1 mmol/L (3-11); BUN 18 mg/dL (7-18); CO2 29.9 mmol/L (21.0-32.0); CREATININE 0.8 mg/dL (0.55-1.02); Chloride 113 mmol/L (98-107); Glucose 91 mg/dL (74-106); Magnesium 2.6 mg/dL (1.8-2.4); Potassium 3.3 mmol/L (3.5-5.1); Sodium 149 mmol/L (136-145)
[2021-01-02] MEDS: Budesonide/Formoterol 160/4.5 6 GM 60 PUFF INH IH ×2 (08:33→20:33)
[2021-01-02 09:27] LABS: C-Reactive Protein 12.02 mg/dL (0.0-0.3)
[2021-01-02 09:31] VITALS: BP 122/70; PULSE 79; RESP 20; TEMP 36.1; O2SAT 99
[2021-01-02] MEDS: Benztropine 1 MG TAB PO ×2 (09:32→20:22)
[2021-01-02] MEDS: OLANZapine 5 MG TAB PO (09:33)
[2021-01-02] MEDS: Refresh PLUS Eye Drops 0.4ml OP ×3 (09:33→20:21)
[2021-01-02] MEDS: busPIRone 5 MG TAB 10 MG PO ×3 (09:33→20:21)
[2021-01-02] MEDS: POTASSIUM CHLORIDE 10 MEQ/100 ML BAG 100 MEQ IVPB (09:47)
--- NOTE | 2021-01-02 10:02 | PDOC.CMPRO ---
- If Service Date Differs Date of service: 01/02/21 Time of Service: 10:02 Care Management Progress Note S/O: Merrick feels better since her NGT was inserted, she is not a candidate for surgery. She is currently being treated with IV abx for a UTI. CM continues to follow. A: 55 year old aaron admitted to [facility] on 12/31/20 for small bowel obstruction. P: Danette will return to the [facility] once medically cleared. CM will coordinate this return, including transportation which will be determined by her mobility. She will follow up with her PCP and discharge plan of care. CM will continue to follow.
[2021-01-02] MEDS: ERTAPENEM 1 GM in Normal Saline 50 ML IVPB (11:35)
--- NOTE | 2021-01-02 13:18 | W.PM.PROGNOT ---
Date of Service Date of service: 01/02/21 Time of Service: 13:18 Assessment and Plan Assessment and plan (1) Small bowel obstruction: Status: Acute Assessment and plan: No change in the bowel obstruction/no improvement No signs of peritonitis. Her last admission for a bowel obstruction was on 11/15/2020. It took her 4 days to open up at that admission. This is day 3. If there is no improvement tomorrow, plan on pacing PICC possible surgery thursday versus waiting until Thursday. Patient has no signs acute abdomen cont supportive cares (2) Chronic constipation: Status: Acute (3) Protein-calorie malnutrition, mild: Status: Acute (4) Anemia: Status: Chronic (5) UTI (urinary tract infection): Status: Acute (6) Schizoaffective disorder: Status: Chronic Qualifiers: Schizoaffective disorder type: bipolar Qualified Code(s): F25.0 - Schizoaffective disorder, bipolar type (7) Cognitive impairment: Status: Acute (8) Diabetes mellitus type II, controlled: Status: Acute Qualifiers: Diabetes mellitus complication status: without complication Diabetes mellitus mcfp insulin use: without supervisor intermediates use Qualified Code(s): E11.9 - Type 2 diabetes mellitus without complications (9) Hypothyroid: Status: Chronic Qualifiers: Hypothyroidism type: acquired Qualified Code(s): E03.9 - Hypothyroidism, unspecified (10) COPD (chronic obstructive pulmonary disease): Status: Chronic Qualifiers: COPD type: unspecified COPD Qualified Code(s): J44.9 - Chronic obstructive pulmonary disease, unspecified Subjective Subjective Interval history since last seen: Patient cannot really give any history. She says she does not have pain. No bowel movement has been recorded for the past 24 hours. I did review the notes from [facility]. They say that she has had an exploratory laparotomy. Number he knows when or why she had the procedure done. On CT scan she still has her gallbladder, her appendix, and her uterus tubes and ovaries. She has no abdominal wall hernias. [facility] records also mention that she has had a thoracotomy in the past. And according to their records she does smoke half a pack a day. Her last admission for a bowel obstruction was on 11/15/2020. It took her 4 days to open up at that admission. This is day 3. If there is no improvement tomorrow plan on pacing PICC versus central line and possible surgery versus waiting until Thursday. Patient has no signs acute abdomen Exam Resp Effort & Inspection: normal respiratory effort Auscultation: clear to auscultation bilaterally Cardio Rate: regular rate Rhythm: regular rhythm GI Inspection: scar Palpation: soft, no guarding, tender (mild diffuse) and No ascites Other: no BS Extrem General: no clubbing, cyanosis or edema Objective Last Vital Signs Temp 36.1 C L 01/02/21 09:31 Pulse 79 01/02/21 09:31 Resp 20 01/02/21 09:31 BP 122/70 01/02/21 09:31 Pulse Ox 99 01/02/21 09:31 Laboratory Results - last 24 hr 01/01/21 01/02/21 01/02/21 07:22 06:30 06:30 WBC 5.46 RBC 3.21 L Hgb 10.1 L Hct 33.1 L MCV 103.1 H D MCH 31.5 MCHC 30.5 L RDW 15.5 H Plt Count 137 MPV 10.1 Immature Gran % 1.3 Neutrophils % 60.1 Lymphocytes % 25.5 Monocytes % 12.6 Eosinophils % 0.0 Basophils % 0.5 Nucleated RBC % 0 Absolute Neutrophils 3.28 Absolute Lymphocytes 1.39 Absolute Monocytes 0.69 Absolute Eosinophils 0.00 Absolute Basophils 0.03 Sodium 149 H Potassium 3.3 L Chloride 113 H Carbon Dioxide 29.9 Anion Gap 6.1 BUN 18 Creatinine 0.8 Estimated GFR/1.73 m2 >= 60.00 Glucose 91 Calcium 8.0 L Magnesium 2.6 H C-Reactive Protein 12.02 H Pathology Consult Spec
[2021-01-02] MEDS: POTASSIUM CHLORIDE/D5-0.45NACL 1,000 ML 125 MEQ IV ×2 (14:54→23:59)
[2021-01-02 15:55] VITALS: BP 119/79; PULSE 80; RESP 20; TEMP 36.5; O2SAT 99
--- NOTE | 2021-01-02 16:22 | W.PM.PROGNOT ---
Date of Service Date of service: 01/02/21 Time of Service: 16:22 Assessment and Plan Assessment and plan (1) Small bowel obstruction: Status: Acute Assessment and plan: SBO, surgery consulted and not surgical candidate. Will continue to manage conservatively with NPO and IVF; continue NGT (2) UTI (urinary tract infection): Status: Acute Assessment and plan: culture growing ESBL will start ertapenem day 1. (3) Schizoaffective disorder: Status: Chronic Assessment and plan: stable, continue home medication with sips Qualifiers: Schizoaffective disorder type: bipolar Qualified Code(s): F25.0 - Schizoaffective disorder, bipolar type (4) Diabetes mellitus type II, controlled: Status: Acute Assessment and plan: fasting glucose today is 95, add blood sugar checks q6 hour while npo. hold metformin while npo. 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 complication status: without complication Diabetes mellitus terminal computer operator insulin use: without terminal computer operator use Qualified Code(s): E11.9 - Type 2 diabetes mellitus without complications (5) COPD (chronic obstructive pulmonary disease): Status: Chronic Assessment and plan: stable Qualifiers: COPD type: unspecified COPD Qualified Code(s): J44.9 - Chronic obstructive pulmonary disease, unspecified (6) Hypothyroid: Status: Chronic Assessment and plan: TSH 0.81 in Nov 2020, will continue levothyroxine discussed with Dr Olivares Qualifiers: Hypothyroidism type: acquired Qualified Code(s): E03.9 - Hypothyroidism, unspecified Subjective Subjective Patient reports: no new complaints, feels better, no flatus, no bowel movement and afebrile; denies nausea and vomiting Interval history since last seen: patient agreed to NGT, which is draining greenish clear liquid. reports feeling better since tube inserted Exam Const General: frail appearing and ill appearing (older appearing than stated age) chronically Nutritional Appearance: well nourished Orientation: alert, awake, oriented to person and oriented to place [facility] General nose exam: other (NGT intact, draining clear greenish fluid) Face and sinus: dry mucous membranes Mouth: moist mucous membranes abnormal (slightly dry, no exudate) Eyes Eyelids: eyelids normal Pupils: PERRL EOM: EOM intact bilaterally Chest Chest: normal inspection of the chest Resp Effort & Inspection: normal respiratory effort and able to speak in complete sentences Auscultation: clear to auscultation bilaterally Cardio Rate: regular rate Rhythm: regular rhythm GI Inspection: normal to inspection, distended and scar Palpation: soft and tender (generalized) other Auscultation: absent bowel sounds Skin General skin exam: no rashes or lesions noted Wounds: no wounds Objective Last Vital Signs Temp 36.1 C L 01/02/21 09:31 Pulse 79 01/02/21 09:31 Resp 20 01/02/21 09:31 BP 122/70 01/02/21 09:31 Pulse Ox 99 01/02/21 09:31 Laboratory Results - last 24 hr 01/01/21 01/02/21 01/02/21 07:22 06:30 06:30 WBC 5.46 RBC 3.21 L Hgb 10.1 L Hct 33.1 L MCV 103.1 H D MCH 31.5 MCHC 30.5 L RDW 15.5 H Plt Count 137 MPV 10.1 Immature Gran % 1.3 Neutrophils % 60.1 Lymphocytes % 25.5 Monocytes % 12.6 Eosinophils % 0.0 Basophils % 0.5 Nucleated RBC % 0 Absolute Neutrophils 3.28 Absolute Lymphocytes 1.39 Absolute Monocytes 0.69 Absolute Eosinophils 0.00 Absolute Basophils 0.03 Sodium 149 H Potassium 3.3 L Chloride 113 H Carbon Dioxide 29.9 Anion Gap 6.1 BUN 18 Creatinine 0.8 Estimated GFR/1.73 m2 >= 60.00 Glucose 91 Calcium 8.0 L Magnesium 2.6 H C-Reactive Protein 12.02 H Pathology Consult Spec
--- NOTE | 2021-01-02 17:52 | CHAPLAIN ---
Marguerite is a patient from [facility]. It sounded like she was having a conversation with someone when I was outside of her room, but there was no one with her when went in. She was excited about a TV movie coming on soon. She asked for drinks, but was not allowed any according to nursing. Danette was pleasant and seems to be comfortable being here.
[2021-01-02] MEDS: LORazepam 2 MG/ML VIAL 1 MG IVP (20:21)
[2021-01-02 23:45] VITALS: BP 118/71; PULSE 83; RESP 22; TEMP 37; O2SAT 100
[2021-01-03] MEDS: Normal Saline 100 ML (00:22)
--- NOTE | 2021-01-03 03:34 | NUR.NOTE ---
Nursing Note: Pt with poor IV access. Pt pulled on IV catheter. This nurse repositioned catheter and attempted new IV location. No success with IV attempt. ICU nurse over to attempt IV insertion no success. IV access concerns passed on to charge nurse.
[2021-01-03 07:11] LABS: Abs Immature Grans 0.12 10^3/uL (0.0-0.06); Absolute Basophil Count 0.02 10^3/uL (0.0-0.2); Absolute Lymphocyte Count 1.64 10^3/uL (1.2-3.4); Absolute Neutrophil Count 3.26 10^3/uL (1.2-6.7); Basophils % 0.3; HCT 34.7 % (36.0-46.0); HGB 10.4 g/dL (11.2-15.7); Immature Grans % 2.1; Lymphocytes % 28.1; MCV 103.3 fL (80-95); Monocytes % 13.7; Neutrophils % 55.8; Nucleated RBC 0 %; Platelet Count 146 10^3/uL (130-400); RBC 3.36 10^6/uL (3.93-5.22); RDW 15.6 % (11.7-14.6); RDW-SD 59.7 fL; WBC 5.84 10^3/uL (4.4-10.8)
[2021-01-03 07:37] LABS: Anion Gap 8.3 mmol/L (3-11); BUN 11 mg/dL (7-18); CO2 26.7 mmol/L (21.0-32.0); CREATININE 0.7 mg/dL (0.55-1.02); Calcium 8.1 mg/dL (8.5-10.1); Chloride 112 mmol/L (98-107); Glucose 99 mg/dL (74-106); Potassium 3.7 mmol/L (3.5-5.1); Sodium 147 mmol/L (136-145)
[2021-01-03 08:08] VITALS: BP 128/82; PULSE 87; RESP 19; TEMP 36.3; O2SAT 98
[2021-01-03] MEDS: OLANZapine 5 MG TAB PO (09:32)
[2021-01-03] MEDS: Refresh PLUS Eye Drops 0.4ml OP ×2 (09:32→20:22)
[2021-01-03] MEDS: Benztropine 1 MG TAB PO ×2 (09:33→20:23)
[2021-01-03] MEDS: busPIRone 5 MG TAB 10 MG PO ×2 (09:33→20:22)
[2021-01-03] MEDS: POTASSIUM CHLORIDE/D5-0.45NACL 1,000 ML 125 MEQ IV ×2 (09:35→21:11)
[2021-01-03] MEDS: Budesonide/Formoterol 160/4.5 6 GM 60 PUFF INH IH ×2 (10:06→20:22)
[2021-01-03] MEDS: ERTAPENEM 1 GM in Normal Saline 50 ML IVPB (10:37)
--- NOTE | 2021-01-03 11:22 | CMPROGNOTE_ITS ---
- If Service Date Differs Date of service: 01/03/21 Time of Service: 11:22 Care Management Progress Note S/O: Marguerite has been slowly improving clinically. Her NG tube output has decreased and the tube is clamped. If the clamping is tolerated, the NG tube may be removed tomorrow. Marguerite was awake much of the night, yelling and was asleep when CM went to see her. CM was asked not to disturb her so she could continue to rest. A: 55 year old female admitted to [facility] on 12/31/20 for small bowel obstruction. P: Danette will return to the [facility] once medically cleared. CM will coordinate this return, including transportation which will be determined by her mobility. She will follow up with her PCP and discharge plan of care. CM will continue to follow.
[2021-01-03] MEDS: Enoxaparin 40 MG/0.4 ML SYR SC (12:33)
--- NOTE | 2021-01-03 12:33 | W.PM.PROGNOT ---
Date of Service Date of service: 01/03/21 Time of Service: 12:34 Assessment and Plan Assessment and plan (1) Small bowel obstruction: Status: Acute Assessment and plan: SBO, surgery following, not resolving but stable abdomen and vitals. Will continue to manage conservatively with NPO and IVF; continue NGT encourage OOB and ambulation (2) UTI (urinary tract infection): Status: Acute Assessment and plan: culture growing ESBL will start ertapenem day 2. (3) Schizoaffective disorder: Status: Chronic Assessment and plan: stable, continue home medication with sips Qualifiers: Schizoaffective disorder type: bipolar Qualified Code(s): F25.0 - Schizoaffective disorder, bipolar type (4) Diabetes mellitus type II, controlled: Status: Acute Assessment and plan: receiving D51/2 saline, continue blood sugar checks q6 hour while npo. hold metformin while npo. 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 insulin use: without fdc use Diabetes mellitus complication status: without complication Qualified Code(s): E11.9 - Type 2 diabetes mellitus without complications (5) COPD (chronic obstructive pulmonary disease): Status: Chronic Assessment and plan: stable Qualifiers: COPD type: unspecified COPD Qualified Code(s): J44.9 - Chronic obstructive pulmonary disease, unspecified (6) Hypothyroid: Status: Chronic Assessment and plan: TSH 0.81 in Nov 2020, will continue levothyroxine discussed with Dr Olivares Qualifiers: Hypothyroidism type: acquired Qualified Code(s): E03.9 - Hypothyroidism, unspecified Subjective Subjective Patient reports: pain is less, no flatus, no bowel movement and afebrile Interval history since last seen: ngt drained 250 cc over 4 hours this morning. Exam Const General: frail appearing and ill appearing (older appearing than stated age) chronically Nutritional Appearance: well nourished Orientation: alert, awake and oriented to person [facility] General nose exam: other (NGT intact, draining clear greenish fluid) Face and sinus: dry mucous membranes Mouth: moist mucous membranes abnormal (slightly dry, no exudate) Eyes Eyelids: eyelids normal Pupils: PERRL EOM: EOM intact bilaterally Chest Chest: normal inspection of the chest Resp Effort & Inspection: normal respiratory effort and able to speak in complete sentences Auscultation: clear to auscultation bilaterally Cardio Rate: regular rate Rhythm: regular rhythm GI Inspection: normal to inspection, distended and scar Palpation: soft and tender (generalized) other Auscultation: absent bowel sounds Skin General skin exam: no rashes or lesions noted Wounds: no wounds Objective Last Vital Signs Temp 36.3 C L 01/03/21 08:08 Pulse 87 01/03/21 08:08 Resp 19 01/03/21 08:08 BP 128/82 01/03/21 08:08 Pulse Ox 98 01/03/21 08:08 Laboratory Results - last 24 hr 01/03/21 01/03/21 06:50 06:50 WBC 5.84 RBC 3.36 L Hgb 10.4 L Hct 34.7 L MCV 103.3 H MCH 31.0 MCHC 30.0 L RDW 15.6 H Plt Count 146 MPV 10.0 Immature Gran % 2.1 Neutrophils % 55.8 Lymphocytes % 28.1 Monocytes % 13.7 Eosinophils % 0.0 Basophils % 0.3 Nucleated RBC % 0 Absolute Neutrophils 3.26 Absolute Lymphocytes 1.64 Absolute Monocytes 0.80 Absolute Eosinophils 0.00 Absolute Basophils 0.02 Sodium 147 H Potassium 3.7 Chloride 112 H Carbon Dioxide 26.7 Anion Gap 8.3 BUN 11 D Creatinine 0.7 Estimated GFR/1.73 m2 >= 60.00 Glucose 99 Calcium 8.1 L
--- NOTE | 2021-01-03 13:50 | W.PM.PROGNOT ---
Date of Service Date of service: 01/03/21 Time of Service: 13:50 Assessment and Plan Assessment and plan (1) Small bowel obstruction: Status: Acute Assessment and plan: Patients abdomen is soft and there are good BS. NG output has greatly decreased and is clear with light green tinge. We will clamp the NG for 2 hours and see what the residual is. If <100 then will keep clamped until the morning and potentially remove at that time. Subjective Subjective Interval history since last seen: The patient is sleeping. Per nursing staff she was up all night screaming. Her NG output is 200 since 6 pm on 01/02/21. The color is clear with a small tinge of bile. Exam GI Palpation: soft and nontender Auscultation: normal bowel sounds Objective Last Vital Signs Temp 97.3 F L 01/03/21 08:08 Pulse 87 01/03/21 08:08 Resp 19 01/03/21 08:08 BP 128/82 01/03/21 08:08 Pulse Ox 98 01/03/21 08:08 Laboratory Results - last 24 hr 01/03/21 01/03/21 06:50 06:50 WBC 5.84 RBC 3.36 L Hgb 10.4 L Hct 34.7 L MCV 103.3 H MCH 31.0 MCHC 30.0 L RDW 15.6 H Plt Count 146 MPV 10.0 Immature Gran % 2.1 Neutrophils % 55.8 Lymphocytes % 28.1 Monocytes % 13.7 Eosinophils % 0.0 Basophils % 0.3 Nucleated RBC % 0 Absolute Neutrophils 3.26 Absolute Lymphocytes 1.64 Absolute Monocytes 0.80 Absolute Eosinophils 0.00 Absolute Basophils 0.02 Sodium 147 H Potassium 3.7 Chloride 112 H Carbon Dioxide 26.7 Anion Gap 8.3 BUN 11 D Creatinine 0.7 Estimated GFR/1.73 m2 >= 60.00 Glucose 99 Calcium 8.1 L
[2021-01-03 14:55] VITALS: BP 104/55; PULSE 81; RESP 18; TEMP 36.4; O2SAT 96
--- NOTE | 2021-01-03 17:06 | PHA.REVIEW ---
Pharmacy Admission Review - Admission Clinical Review (Last Reviewed 12/31/20 @ 19:04 by Edy Pinto MD) Chronic constipation (Acute) Protein-calorie malnutrition, mild (Acute) Small bowel obstruction (Acute) Bowel obstruction (Acute) UTI (urinary tract infection) (Acute) Cognitive impairment (Acute) Diabetes mellitus type II, controlled (Acute) Diabetic neuropathy (Acute) Secondary Parkinson disease (Acute) prednisone Allergy (Unknown, Unverified 12/31/20 16:05) lithium Allergy (Unverified 12/31/20 16:05) oxycodone [From OxyContin] Allergy (Unverified 12/31/20 16:05) Penicillins Allergy (Unverified 12/31/20 16:05) pioglitazone Allergy (Unverified 12/31/20 16:05) Sulfa (Sulfonamide Antibiotics) Allergy (Unverified 12/31/20 16:05) tramadol Allergy (Unverified 12/31/20 16:05) Resuscitation Status Full Code Height 5 ft Weight 68.946 kg - Renal Dosing Renal Dosing: BUN 11 mg/dL (7-18) D 01/03/21 06:50 Creatinine 0.7 mg/dL (0.55-1.02) 01/03/21 06:50 Medications needing adjustments: Reviewed - Anticoagulation Anticoagulation: Hgb 10.4 g/dL (11.2-15.7) L 01/03/21 06:50 Hct 34.7 % (36.0-46.0) L 01/03/21 06:50 Plt Count 146 10^3/uL (130-400) 01/03/21 06:50 Creatinine 0.7 mg/dL (0.55-1.02) 01/03/21 06:50 DVT Prophylaxis: Reviewed Medications: Enoxaparin - Opiate Usage Evaluate Pain Scale/Pains Meds: N/A - Relevant Labs Sodium 147 mmol/L (136-145) H 01/03/21 06:50 Potassium 3.7 mmol/L (3.5-5.1) 01/03/21 06:50 Chloride 112 mmol/L (98-107) H 01/03/21 06:50 Magnesium 2.6 mg/dL (1.8-2.4) H 01/02/21 06:30 C-Reactive Protein 12.02 mg/dL (0.0-0.3) H 01/02/21 06:30 Electrolytes, C-Reactive P, ESR: Reviewed - DM Control DM Control: Glucose 99 mg/dL (74-106) 01/03/21 06:50 Finger Stick Blood Glucose 76 Finger Stick Blood Glucose 76 Insulin Dosing: N/A (on metformin 500mg daily (home med)) - Heart Failure/NV EF%, BABATUNDE's, B-Blockers, Diuretics: Reviewed - BP Control BP Control: Blood Pressure 104/55 Blood Pressure 128/82 If elevated: Reviewed - IV to PO Switch IV Medications: Reviewed - Home Meds Home Med List reviewed: Reviewed Relevent Home Meds Not ordered & why?: valproate IV is ordered in place of depakote, metformin (NPO) - Current meds Current Medication Order Review: Reviewed
[2021-01-04] MEDS: Normal Saline Flush 10 ML SYR IVP ×2 (01:24→08:46)
[2021-01-04 02:08] VITALS: BP 124/79; PULSE 83; RESP 19; TEMP 36.1; O2SAT 92
[2021-01-04] MEDS: POTASSIUM CHLORIDE/D5-0.45NACL 1,000 ML 125 MEQ IV ×3 (06:05→21:26)
[2021-01-04] MEDS: Benztropine 1 MG TAB PO ×2 (08:46→19:44)
[2021-01-04] MEDS: Refresh PLUS Eye Drops 0.4ml OP ×3 (08:46→19:44)
[2021-01-04] MEDS: busPIRone 5 MG TAB 10 MG PO ×3 (08:46→19:44)
[2021-01-04] MEDS: OLANZapine 5 MG TAB PO (08:47)
[2021-01-04] MEDS: Enoxaparin 40 MG/0.4 ML SYR SC (08:47)
[2021-01-04] MEDS: Budesonide/Formoterol 160/4.5 6 GM 60 PUFF INH IH ×2 (08:58→19:44)
[2021-01-04 09:05] VITALS: TEMP 36.4
--- NOTE | 2021-01-04 09:30 | IN_ITS ---
Date of service: 01/04/21 Time of Service: 09:30 PT Notes Visit Reasons: SBO Physical Therapy Inpatient Initial Evaluation Date: 01/04/2021 Referring Doctor: Lorraine Pires NP PT Orders: PT CONSULT: Eval/treat Precautions: Fall. Standard. Activity as tolerated. At risk for agitation. Patient Profile/Admitting Diagnosis: Juan is a 55-year-old female who presented to the ED on 01/01/2020 due to abdominal pain, bloating, distention, nausea, and vomiting. Patient is diagnosed with small bowel obstruction with orders for physical therapy for mobilization. PMHX: Medical History (Updated 12/31/20 @ 19:09 by Edy Pinto MD) Acute kidney injury Alcoholism in remission Bipolar 1 disorder Cognitive impairment COPD (chronic obstructive pulmonary disease) Diabetes mellitus type II, controlled Diabetic neuropathy Diastolic dysfunction Falls frequently GERD (gastroesophageal reflux disease) Heart murmur History of alcohol abuse Hyperthyroidism Hypothyroid Left bundle branch block AVANI (obstructive sleep apnea) Pancreatitis Schizoaffective disorder Secondary Parkinson disease Subdural hematoma small right September 2018 2/2 mechanical fall Tobacco dependence Surgical History H/O abdominal surgery S/P thoracotomy Social History/Home Situation: Long-term care resident at the [facility]. Supervision for all facility ambulation using front wheeled walker. Equipment Owned/DME: Front wheel walker Subjective: Agreeable to walking. Highly distractible. High risk for agitation. Objective: General Observation: Increased tendency to be agitated. Summers catheter in place. IV in L UE well-secured by Nurse Kirt to avoid inadvertent, or willful, pulling. Mental Status: Disorganized thought. Speech mostly inappropriate. Requires maximal redirection to initiate and complete task. Pain: None reported ROM: Right Upper Extremity: Grossly WFL Left Upper Extremity: Grossly WFL Right Lower Extremity: Grossly WFL Left Lower Extremity: Grossly WFL Strength: Right Upper Extremity: Shoulder flexors 5/5. Shoulder abductors 5/5. Elbow flexors 5/5. Elbow extensors 5/5. Luster Applicator strong. Left Upper Extremity: Shoulder flexors 5/5. Shoulder abductors 5/5. Elbow flexors 5/5. Elbow extensors 5/5. Luster Applicator strong. Right Lower Extremity: Hip flexors 5/5. Hip abductors 5/5. Knee flexors 5/5. Knee extensors 5/5. Ankle dorsiflexors 5/5. Ankle plantarflexors 5/5. Left Lower Extremity: Hip flexors 5/5. Hip abductors 5/5. Knee flexors 5/5. Knee extensors 5/5. Ankle dorsiflexors 5/5. Ankle plantarflexors 5/5. Bed Mobility/Transfers: Rolling contact-guard assist Supine to sit contact-guard assist with HOB at 30 degrees Sit to supine minimal assist of 2 Sit to stand contact-guard assist with front wheeled walker Stand to sit contact-guard assist with front wheel walker Gait: Instructed patient with level surface ambulation of 35 feet +50 feet +20 feet with front wheeled walker requiring contact-guard assist. Mild instability seen during directional changes. Requires moderate verbal cueing for walker management. Reports fatigue and moderate shortness of breath. Balance: Static Sitting: Normal Dynamic Sitting: Good Static Standing: Fair Dynamic Standing: Fair Special Tests: Mobility Limitations Standardized Measure [facility] AM-PAC 6 clicks Basic Mobility Inpatient Short Form: Raw Score: 17 CMS Score: 51% deficit Informed Consent/Education: Patient was instructed in purpose of PT consult and plan of care. Agreeable to proceed with established PT POC to achieve personal goals. Assessment: Barriers to achieving goals at this time high risk for agitation, psych diagnoses, shortness of breath, and generalized weakness. Patient presents with clinical signs and symptoms consistent with cu rrent/admitting diagnoses that have resulted to mobility limitations, gait instability, generalized weakness, and overall ADL decline as demonstrated by the following impairment level findings: 1. Decreased strength to BUE/LE major muscle groups 2. Impaired sitting/standing balance 3. Impaired activity tolerance 5. Shortness of breath 6. High risk for agitation Impairments are contributing to the following functional limitations: 1. Decline in bed mobility skills 2. Decline in transfer skills 3. Difficulty with ambulation without assistive device and physical assistance 4. Increased completion time for mobility ADL performance 5. Increased risk for falls 6. Difficulty with managing steps alone safely Patient is assessed as a 33917 high complexity based on the following: History: 55-year-old female with past medical history as indicated above Examination: Demonstrable impairment in strength, balance, and mobility level with underlying impairments and functional limitations as exhibited above as well as deficit score of 51% utilizing the [facility] Mobility Inpatient Short Form Presentation: Unstable Decision Makin high complexity Goals: Goals X1 week 1. Supine-Sit independent 2. Sit-Supine independent 3. Sit-Stand independent 4. Stand-Sit supervision with FWW 5. Bed-Chair supervision with FWW 6. Chair-Bed supervision with FWW 7. Supervision with FWW gait on level surface with use of [] for at least [] feet without report of pain nor dyspnea 8. Supervision stair negotiation while holding onto [] rails for at least [] steps without report of pain nor dyspnea 9. Supervision with home exercise program 10. Good static and dynamic standing balance/tolerance Plan of Care/Treatment Plan: 1-2x/day, 7 days/week x 1 week. Plan of care has been reviewed with the [facility] providing the service under Physical Therapy direction. Initiate Physical Therapy intervention for pain management as needed, strengthening, bed mobility, transfers, gait, stairs, balance training, and use of assistive device. DISCHARGE RECOMMENDATIONS: Return to SNF when medically cleared by hospitalist. May require continued short-term PT services to regain prior level of function using front wheel walker. TREATMENT CODE/TIME: 9716 3 x 30 minutes, 9753 0 x 10 minutes beginning at 9:30 AM. Thank you for the opportunity to participate in the care of this patient. Lorena Piedra PT, DPT, CLT [facility] [place], [place]
[2021-01-04] MEDS: ERTAPENEM 1 GM in Normal Saline 50 ML IVPB (10:19)
--- NOTE | 2021-01-04 12:33 | W.NUTRFU ---
Date of service: 01/04/21 Time of Service: 12:33 Nutrition Note NOTE: Chart review, noted day 5 of NPO status today (with 1-2 days of poor intake at least prior to admission, based on sx of SBO). Unable to assess wt change as 12/31 was last measurement recorded. Due to dx of SBO and NG tube status already placed for suction, would suggest initiating TPN if unable to advance diet by end of today. Suggest Clinimix (4.25/10) 2000ml run at 83mL/hr x24 hours to provide 1020kcals, 85g protein 20% lipids (250ml bag) run at 31.25ml/hr x 8hrs to provide 50g fat and 450kcals. Total contribution to nutrition status = 1470kcals (21 kcal/kg), 85g protein (1.2 g/kg) and 2250mL fluid (32ml/kg) *Adjustment was made to original protein estimate as it was not based on IBW (which is more congruent with best practice). Time Spent in Nutritional Counseling and Treatment: 0
--- NOTE | 2021-01-04 13:53 | PGE_ITS ---
Date of Service Date of service: 01/04/21 Time of Service: 13:53 Assessment and Plan Assessment and plan (1) Small bowel obstruction: Status: Acute Assessment and plan: SBO, surgery following, slowly resolving Will continue to manage conservatively with NPO and IVF; NGT clamped per surgery encourage OOB and ambulation (2) UTI (urinary tract infection): Status: Acute Assessment and plan: culture growing ESBL continue ertapenem day 3. (3) Schizoaffective disorder: Status: Chronic Assessment and plan: stable, continue home medication with sips Qualifiers: Schizoaffective disorder type: bipolar Qualified Code(s): F25.0 - Jarrett izoaffective disorder, bipolar type (4) Diabetes mellitus type II, controlled: Status: Acute Assessment and plan: receiving D51/2 saline, continue blood sugar checks q6 hour while npo. hold metformin while npo. 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 long goods drier insulin use: without long goods drier use Diabetes mellitus complication status: without complication Qualified Code(s): E11.9 - Type 2 diabetes mellitus without complications (5) COPD (chronic obstructive pulmonary disease): Status: Chronic Assessment and plan: stable Qualifiers: COPD type: unspecified COPD Qualified Code(s): J44.9 - Chronic obstructive pulmonary disease, unspecified (6) Hypothyroid: Status: Chronic Assessment and plan: TSH 0.81 in Nov 2020, will continue levothyroxine discussed with Dr Olivares Qualifiers: Hypothyroidism type: acquired Qualified Code(s): E03.9 - Hypothyroidism, unspecified Subjective Subjective Patient reports: feels better, pain is less, flatus, no bowel movement and afebrile; denies nausea and vomiting Exam Const General: frail appearing and ill appearing (older appearing than stated age) chronically Nutritional Appearance: well nourished Orientation: alert, awake, oriented to person and oriented to place [facility] General nose exam: other (NGT intact, draining clear greenish fluid) Face and sinus: dry mucous membranes Mouth: moist mucous membranes abnormal (slightly dry, no exudate) Eyes Eyelids: eyelids normal Pupils: PERRL EOM: EOM intact bilaterally Chest Chest: normal inspection of the chest Resp Effort & Inspection: normal respiratory effort and able to speak in complete sentences Auscultation: clear to auscultation bilaterally Cardio Rate: regular rate Rhythm: regular rhythm GI Inspection: normal to inspection, distended and scar Palpation: soft and tender (generalized) other Auscultation: absent bowel sounds Skin General skin exam: no rashes or lesions noted Wounds: no wounds Objective Last Vital Signs Temp 36.4 C L 01/04/21 09:05 Pulse 83 01/04/21 02:08 Resp 19 01/04/21 02:08 BP 124/79 01/04/21 02:08 Pulse Ox 92 01/04/21 02:08
--- NOTE | 2021-01-04 13:58 | W.PM.PROGNOT ---
Date of Service Date of service: 01/04/21 Time of Service: 13:58 Assessment and Plan Assessment and plan (1) Small bowel obstruction: Status: Acute Assessment and plan: Patients abdomen is soft and there are good BS. Residual after clamping NG was 20 cc. Will keep NG tube clamped and start on clears If able to tolerate clears then will D/C NG tube tomorrow and start to advance diet Start Bowel regimen Subjective Subjective Interval history since last seen: Janey is awake today. Per nursing staff she did walk today. She is not complaining of pain NG tube clamped for 2 hours- residual was 20 cc Unable to get any other history Exam Const Orientation: alert GI Palpation: soft and nontender Auscultation: hypoactive bowel sounds Objective Last Vital Signs Temp 97.5 F L 01/04/21 09:05 Pulse 83 01/04/21 02:08 Resp 19 01/04/21 02:08 BP 124/79 01/04/21 02:08 Pulse Ox 92 01/04/21 02:08
--- NOTE | 2021-01-04 16:23 | PDOC.CMPRO ---
- If Service Date Differs Date of service: 01/04/21 Time of Service: 16:23 Care Management Progress Note S/O: Marguerite has been slowly improving clinically. Per Dr. Sultana, NG tube may be removed as soon as tomorrow. Marguerite continues to yell throughout her day; baseline behavior. She was up walking today. CM called the [facility] to inquire about their ability to accept her back this weekend, Lucila stated the facility lacked the staffing, including a provider over the weekend to accommodate an admission. CM notified providers of this information, and continues to follow. A: 55 year old female admitted to [facility] on 12/31/20 for small bowel obstruction. P: Danette will return to the [facility] once medically cleared. CM will coordinate this return, including transportation which will be determined by her mobility.
[2021-01-04 23:15] VITALS: BP 118/79; PULSE 84; RESP 18; TEMP 36.2; O2SAT 97
[2021-01-05] MEDS: POTASSIUM CHLORIDE/D5-0.45NACL 1,000 ML 125 MEQ IV (06:38)
[2021-01-05 07:24] LABS: Abs Immature Grans 0.26 10^3/uL (0.0-0.06); Absolute Basophil Count 0.05 10^3/uL (0.0-0.2); Absolute Lymphocyte Count 2.29 10^3/uL (1.2-3.4); Absolute Neutrophil Count 3.88 10^3/uL (1.2-6.7); Basophils % 0.7; HCT 33.7 % (36.0-46.0); HGB 10.3 g/dL (11.2-15.7); Immature Grans % 3.6; Lymphocytes % 31.5; MCH 31.2 pg (27.0-33.0); MCHC 30.6 % (32.0-36.0); MCV 102.1 fL (80-95); MPV 9.8 fL (8.0-11.0); Neutrophils % 53.2; Nucleated RBC 0 %; Platelet Count 155 10^3/uL (130-400); RDW 15.6 % (11.7-14.6); RDW-SD 58.7 fL; WBC 7.28 10^3/uL (4.4-10.8)
[2021-01-05 07:46] LABS: NT-proBNP 11542 pg/mL (<300)
[2021-01-05 09:15] VITALS: BP 98/57; PULSE 83; RESP 20; TEMP 36; O2SAT 97
[2021-01-05] MEDS: Refresh PLUS Eye Drops 0.4ml OP ×3 (09:26→20:37)
[2021-01-05] MEDS: Benztropine 1 MG TAB PO ×2 (09:26→20:36)
[2021-01-05] MEDS: Normal Saline Flush 10 ML SYR IVP (09:26)
[2021-01-05] MEDS: busPIRone 5 MG TAB 10 MG PO ×3 (09:27→20:36)
[2021-01-05] MEDS: OLANZapine 5 MG TAB PO (09:27)
[2021-01-05] MEDS: Acetaminophen 325 MG TAB 650 MG PO (09:34)
[2021-01-05] MEDS: Enoxaparin 40 MG/0.4 ML SYR SC (09:35)
--- NOTE | 2021-01-05 10:36 | W.PM.PROGNOT ---
Date of Service Date of service: 01/05/21 Time of Service: 10:36 Assessment and Plan Assessment and plan (1) Small bowel obstruction: Status: Acute Assessment and plan: SBO, surgery following, slowly resolving Will continue to manage conservatively with NPO and IVF; NGT clamped per surgery, trialing clear liquids encourage OOB and ambulation (2) UTI (urinary tract infection): Status: Acute Assessment and plan: culture growing ESBL continue ertapenem day 3. (3) Schizoaffective disorder: Status: Chronic Assessment and plan: stable, continue home medication with sips Qualifiers: Schizoaffective disorder type: bipolar Qualified Code(s): F25.0 - Schizoaffective disorder, bipolar type (4) Diabetes mellitus type II, controlled: Status: Acute Assessment and plan: receiving D51/2 saline, continue blood sugar checks q6 hour while npo. hold metformin while npo. 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 complication status: without complication Diabetes mellitus adjunct faculty for medical terminology insulin use: without adjunct faculty for medical terminology use Qualified Code(s): E11.9 - Type 2 diabetes mellitus without complications (5) COPD (chronic obstructive pulmonary disease): Status: Chronic Assessment and plan: stable Qualifiers: COPD type: unspecified COPD Qualified Code(s): J44.9 - Chronic obstructive pulmonary disease, unspecified (6) Hypothyroid: Status: Chronic Assessment and plan: TSH 0.81 in Nov 2020, will continue levothyroxine discussed with Dr acosta Qualifiers: Hypothyroidism type: acquired Qualified Code(s): E03.9 - Hypothyroidism, unspecified Subjective Subjective Patient reports: no bowel movement and afebrile; denies vomiting Interval history since last seen: NGT remains clamped, no vomiting noted. Exam Const General: frail appearing and ill appearing (older appearing than stated age) chronically Nutritional Appearance: well nourished Orientation: alert, awake, oriented to person and oriented to place [facility] General nose exam: other (NGT intact, draining clear greenish fluid) Face and sinus: dry mucous membranes Mouth: moist mucous membranes abnormal (slightly dry, no exudate) Eyes Eyelids: eyelids normal Pupils: PERRL EOM: EOM intact bilaterally Chest Chest: normal inspection of the chest Resp Effort & Inspection: normal respiratory effort and able to speak in complete sentences Auscultation: clear to auscultation bilaterally Cardio Rate: regular rate Rhythm: regular rhythm GI Inspection: normal to inspection, distended and scar Palpation: soft and tender (generalized) other Auscultation: absent bowel sounds Skin General skin exam: no rashes or lesions noted Wounds: no wounds Objective Last Vital Signs Temp 36.2 C L 01/04/21 23:15 Pulse 84 01/04/21 23:15 Resp 18 01/04/21 23:15 BP 118/79 01/04/21 23:15 Pulse Ox 97 01/04/21 23:15 Laboratory Results - last 24 hr 01/04/21 01/04/21 01/05/21 05:35 05:35 07:00 WBC Cancelled RBC Cancelled Hgb Cancelled Hct Cancelled MCV Cancelled MCH Cancelled MCHC Cancelled RDW Cancelled Plt Count Cancelled MPV Cancelled Immature Gran % Cancelled Neutrophils % Cancelled Band Neutrophils % Cancelled Lymphocytes % Cancelled Atypical Lymphs % Cancelled Monocytes % Cancelled Eosinophils % Cancelled Basophils % Cancelled Metamyelocytes % Cancelled Myelocytes % Cancelled Promyelocytes % Cancelled Other Cells % Cancelled Nucleated RBC % Cancelled Absolute Neutrophils Cancelled Absolute Lymphocytes Cancelled Absolute Monocytes Cancelled Absolute Eosinophils Cancelled Absolute Basophils Cancelled RBC Morphology Cancelled Polychromasia Cancelled Hypochromasia Cancelled Poikilocytosis Cancelled Basophilic Stippling Cancelled Anisocytosis Cancelled Microcytosis Cancelled Macrocytosis Cancelled Spherocytes Cancelled Tear Drop Cells Cancelled Ovalocytes Cancelled Stomatocytes Cancelled Joiner-Socastee Bodies Cancelled New Point Cells/Echinocytes Cancelled Acanthocytes (Spur) Cancelled Schistocytes Cancelled Sodium Cancelled Potassium Cancelled Chloride Cancelled Carbon Dioxide Cancelled Anion Gap Cancelled BUN Cancelled Creatinine Cancelled Estimated GFR/1.73 m2 Cancelled Glucose Cancelled Calcium Cancelled NT-Pro-B Natriuret Pep 34059 H 01/05/21 07:00 WBC 7.28 RBC 3.30 L Hgb 10.3 L Hct 33.7 L MCV 102.1 H MCH 31.2 MCHC 30.6 L RDW 15.6 H Plt Count 155 MPV 9.8 Immature Gran % 3.6 Neutrophils % 53.2 Band Neutrophils % Lymphocytes % 31.5 Atypical Lymphs % Monocytes % 11.0 Eosinophils % 0.0 Basophils % 0.7 Metamyelocytes % Myelocytes % Promyelocytes % Other Cells % Nucleated RBC % 0 Absolute Neutrophils 3.88 Absolute Lymphocytes 2.29 Absolute Monocytes 0.80 Absolute Eosinophils 0.00 Absolute Basophils 0.05 RBC Morphology Polychromasia Hypochromasia Poikilocytosis Basophilic Stippling Anisocytosis Microcytosis Macrocytosis Spherocytes Tear Drop Cells Ovalocytes Stomatocytes Joiner-[place] Bodies New Point Cells/Echinocytes Acanthocytes (Spur) Schistocytes Sodium Potassium Chloride Carbon Dioxide Anion Gap BUN Creatinine Estimated GFR/1.73 m2 Glucose Calcium NT-Pro-B Natriuret Pep
[2021-01-05] MEDS: ERTAPENEM 1 GM in Normal Saline 50 ML IVPB (10:42)
--- NOTE | 2021-01-05 13:59 | W.PM.PROGNOT ---
Date of Service Date of service: 01/05/21 Time of Service: 13:59 Assessment and Plan Assessment and plan (1) Small bowel obstruction: Status: Acute Assessment and plan: Patient does have good bowel sounds today for the first time. We will give her some mag citrate and clamp the NG tube. Encourage ambulation. Continue supportive care Patient refuses to comply with most preventative measures such as pulmonary toilet and walking. She could only walk to the nurses station and back today before she complained of fatigue (2) Chronic constipation: Status: Acute (3) Protein-calorie malnutrition, mild: Status: Acute (4) Anemia: Status: Chronic (5) UTI (urinary tract infection): Status: Acute Subjective Subjective Interval history since last seen: Patient refuses to answer any questions today. She only ate 25% of her clear liquid tray. She is not had a bowel movement. Nursing does not know if she is passing gas. She is up walking around. NG tube has been clamped for 24 hours. Exam GI Palpation: soft Other: The patient has excellent bowel sounds today She does not have any hernias. She always complains of severe pain with palpation. Extrem General: no clubbing, cyanosis or edema Objective Last Vital Signs Temp 36.0 C L 01/05/21 09:15 Pulse 83 01/05/21 09:15 Resp 20 01/05/21 09:15 BP 98/57 L 01/05/21 09:15 Pulse Ox 97 01/05/21 09:15 Laboratory Results - last 24 hr 01/04/21 01/04/21 01/05/21 05:35 05:35 07:00 WBC Cancelled RBC Cancelled Hgb Cancelled Hct Cancelled MCV Cancelled MCH Cancelled MCHC Cancelled RDW Cancelled Plt Count Cancelled MPV Cancelled Immature Gran % Cancelled Neutrophils % Cancelled Band Neutrophils % Cancelled Lymphocytes % Cancelled Atypical Lymphs % Cancelled Monocytes % Cancelled Eosinophils % Cancelled Basophils % Cancelled Metamyelocytes % Cancelled Myelocytes % Cancelled Promyelocytes % Cancelled Other Cells % Cancelled Nucleated RBC % Cancelled Absolute Neutrophils Cancelled Absolute Lymphocytes Cancelled Absolute Monocytes Cancelled Absolute Eosinophils Cancelled Absolute Basophils Cancelled RBC Morphology Cancelled Polychromasia Cancelled Hypochromasia Cancelled Poikilocytosis Cancelled Basophilic Stippling Cancelled Anisocytosis Cancelled Microcytosis Cancelled Macrocytosis Cancelled Spherocytes Cancelled Tear Drop Cells Cancelled Ovalocytes Cancelled Stomatocytes Cancelled Joiner-Natural Steps Bodies Cancelled Olympia Cells/Echinocytes Cancelled Acanthocytes (Spur) Cancelled Schistocytes Cancelled Sodium Cancelled Potassium Cancelled Chloride Cancelled Carbon Dioxide Cancelled Anion Gap Cancelled BUN Cancelled Creatinine Cancelled Estimated GFR/1.73 m2 Cancelled Glucose Cancelled Calcium Cancelled NT-Pro-B Natriuret Pep 27841 H 01/05/21 07:00 WBC 7.28 RBC 3.30 L Hgb 10.3 L Hct 33.7 L MCV 102.1 H MCH 31.2 MCHC 30.6 L RDW 15.6 H Plt Count 155 MPV 9.8 Immature Gran % 3.6 Neutrophils % 53.2 Band Neutrophils % Lymphocytes % 31.5 Atypical Lymphs % Monocytes % 11.0 Eosinophils % 0.0 Basophils % 0.7 Metamyelocytes % Myelocytes % Promyelocytes % Other Cells % Nucleated RBC % 0 Absolute Neutrophils 3.88 Absolute Lymphocytes 2.29 Absolute Monocytes 0.80 Absolute Eosinophils 0.00 Absolute Basophils 0.05 RBC Morphology Polychromasia Hypochromasia Poikilocytosis Basophilic Stippling Anisocytosis Microcytosis Macrocytosis Spherocytes Tear Drop Cells Ovalocytes Stomatocytes Joiner-Natural Steps Bodies Hali Cells/Echinocytes Acanthocytes (Spur) Schistocytes Sodium Potassium Chloride Carbon Dioxide Anion Gap BUN Creatinine Estimated GFR/1.73 m2 Glucose Calcium NT-Pro-B Natriuret Pep
[2021-01-05] MEDS: Magnesium Citrate 300 ML BTL PO (14:05)
[2021-01-05] MEDS: Bisacodyl 10 MG SUPP PR (14:45)
[2021-01-05 16:54] VITALS: BP 125/74; PULSE 85; RESP 20; TEMP 36.5; O2SAT 97
[2021-01-05] MEDS: Budesonide/Formoterol 160/4.5 6 GM 60 PUFF INH IH (20:36)
[2021-01-06] MEDS: OLANZapine 5 MG TAB PO (08:23)
[2021-01-06] MEDS: Enoxaparin 40 MG/0.4 ML SYR SC (08:23)
[2021-01-06] MEDS: Bisacodyl 5 MG TABEC PO ×2 (08:23→19:28)
[2021-01-06] MEDS: Refresh PLUS Eye Drops 0.4ml OP ×3 (08:23→19:27)
[2021-01-06] MEDS: Benztropine 1 MG TAB PO ×2 (08:23→19:28)
[2021-01-06] MEDS: busPIRone 5 MG TAB 10 MG PO ×3 (08:24→19:28)
[2021-01-06 08:51] VITALS: BP 119/75; PULSE 78; RESP 18; TEMP 36.6; O2SAT 97
--- NOTE | 2021-01-06 10:01 | PGE_ITS ---
Date of Service Date of service: 01/06/21 Time of Service: 10:01 Assessment and Plan Assessment and plan (1) Small bowel obstruction: Status: Resolved Assessment and plan: tolerating fluids, passed BM and NGT out. surgery advancing diet. bowel regimen encourage OOB and ambulation (2) UTI (urinary tract infection): Status: Acute Assessment and plan: culture growing ESBL continue ertapenem day 4. (3) Schizoaffective disorder: Status: Chronic Assessment and plan: stable, continue home medication Qualifiers: Schizoaffective disorder type: bipolar Qualified Code(s): F25.0 - Schizoaffective disorder, bipolar type (4) Diabetes mellitus type II, controlled: Status: Acute Assessment and plan: stop IV fluids, check blood sugars ac/hs they remain well controlled and has not required coverage restart metformin at discharge. 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 complication status: without complication Diabetes mellitus parts counterman insulin use: without parts counterman use Qualified Code(s): E11.9 - Type 2 diabetes mellitus without complications (5) COPD (chronic obstructive pulmonary disease): Status: Chronic Assessment and plan: stable Qualifiers: COPD type: unspecified COPD Qualified Code(s): J44.9 - Chronic obstructive pulmonary disease, unspecified (6) Hypothyroid: Status: Chronic Assessment and plan: TSH 0.81 in Nov 2020, will continue levothyroxine Qualifiers: Hypothyroidism type: acquired Qualified Code(s): E03.9 - Hypothyroidism, unspecified (7) DVT prophylaxis: Status: Acute Assessment and plan: enoxaparin daily (8) Discharge planning issues: Status: Acute Assessment and plan: plan back to the [facility] tomorrow. covid test per admission to snf protocol discussed with Dr Claudio Subjective Subjective Patient reports: afebrile; denies vomiting Interval history since last seen: patient passed large bowel movement today pulled NGT out, was tolerating liquids fine. Exam Const General: frail appearing and ill appearing (older appearing than stated age) chronically Nutritional Appearance: well nourished Orientation: alert, awake, oriented to person and oriented to place [facility] Face and sinus: dry mucous membranes Mouth: moist mucous membranes abnormal (slightly dry, no exudate) Eyes Eyelids: eyelids normal Pupils: PERRL EOM: EOM intact bilaterally Chest Chest: normal inspection of the chest Resp Effort & Inspection: normal respiratory effort and able to speak in complete sentences Auscultation: clear to auscultation bilaterally Cardio Rate: regular rate Rhythm: regular rhythm GI Inspection: normal to inspection and scar Palpation: soft Auscultation: normal bowel sounds Skin General skin exam: no rashes or lesions noted Wounds: no wounds Objective Last Vital Signs Temp 36.6 C 01/06/21 08:51 Pulse 78 01/06/21 08:51 Resp 18 01/06/21 08:51 BP 119/75 01/06/21 08:51 Pulse Ox 97 01/06/21 08:51
[2021-01-06] MEDS: ERTAPENEM 1 GM in Normal Saline 50 ML IVPB (10:39)
[2021-01-06] MEDS: Lidocaine 2% Viscous 15 ML CUP PO (13:18)
--- NOTE | 2021-01-06 14:00 | W.PM.PROGNOT ---
Date of Service Date of service: 01/06/21 Time of Service: 14:00 Assessment and Plan Assessment and plan (1) Small bowel obstruction: Status: Resolved Assessment and plan: HLIV diet as tolerated activity as tolerated. cont on miralax and stool regime daily to prevent constipation. d/c in am Subjective Subjective Interval history since last seen: pt had large BM. She pulled out the NGT. pt not answering any questions today. Objective Last Vital Signs Temp 36.6 C 01/06/21 08:51 Pulse 78 01/06/21 08:51 Resp 18 01/06/21 08:51 BP 119/75 01/06/21 08:51 Pulse Ox 97 01/06/21 08:51
[2021-01-06 14:58] VITALS: BP 119/79; PULSE 80; RESP 18; TEMP 36.3; O2SAT 96
[2021-01-06 15:30] LABS: Source Nasal/Nares
[2021-01-06 16:26] LABS: COVID-19 PCR Negative (Negative)
[2021-01-06] MEDS: Budesonide/Formoterol 160/4.5 6 GM 60 PUFF INH IH (19:27)
[2021-01-06] MEDS: Acetaminophen 325 MG TAB 650 MG PO (19:28)
[2021-01-06 23:02] VITALS: BP 138/83; PULSE 89; RESP 20; TEMP 37; O2SAT 97
[2021-01-07 06:57] LABS: HCT 30.3 % (36.0-46.0); HGB 9.4 g/dL (11.2-15.7); MCH 31.1 pg (27.0-33.0); MCV 100.3 fL (80-95); MPV 9.5 fL (8.0-11.0); Platelet Count 161 10^3/uL (130-400); RBC 3.02 10^6/uL (3.93-5.22); RDW 15.6 % (11.7-14.6); RDW-SD 57.7 fL; WBC 6.84 10^3/uL (4.4-10.8)
[2021-01-07] MEDS: Benztropine 1 MG TAB PO (08:25)
[2021-01-07] MEDS: OLANZapine 5 MG TAB PO (08:26)
[2021-01-07] MEDS: Refresh PLUS Eye Drops 0.4ml OP (08:26)
[2021-01-07] MEDS: busPIRone 5 MG TAB 10 MG PO (08:26)
[2021-01-07 08:46] VITALS: BP 116/69; PULSE 78; RESP 20; TEMP 36.4; O2SAT 98
[2021-01-07] MEDS: Budesonide/Formoterol 160/4.5 6 GM 60 PUFF INH IH (09:12)
--- NOTE | 2021-01-07 09:29 | CMPROGNOTE_ITS ---
- If Service Date Differs Date of service: 01/07/21 Time of Service: 09:29 Care Management Progress Note S/O: Marguerite . A: 55 year old female admitted to [facility] on 12/31/20 for small bowel obstruction. P: Danette will return to the [facility] once medically cleared. CM will coordinate this return, including transportation which will be determined by her mobility.
--- NOTE | 2021-01-07 10:04 | W.PM.DS.N ---
Date of service: 01/07/21 Time of Service: 10:04 DS: Diagnosis Discharge Diagnosis (1) Small bowel obstruction: Status: Resolved Discharge Plan Disposition Patient Disposition: SNF (LEVEL 1) [facility] Condition: Improving Discharge Details Reason For Visit: SBO Admit Date/Time: 12/31/20 19:14 Admit Provider: Edy Pinto Attending Provider: Edy Pinto Primary Care Provider: Mikayla Torres Hospital Course Hospital Course: This is a 55 year old female from the [facility] with history of chronic constipation with obstruction, cognitive impairment, schizophrenia, copd, diabetes mellitus type 2, diastolic dysfunction who presented to the ED with c/o abdominal pain, vomiting and bloating. Last BM was 3 days prior. Her work up in the ED showed SBO. She was admitted to med/surg under hospitalist services. Surgery was consulted and followed. Eventually an NGT was placed as she had persistent symptoms. She was very slow to resolve but did 4-5 days in. She remained hemodynamically stable. Her pain resolved and her diet was advanced slowly. She passed a large BM and was tolerating a regular diet. Present on admission was also found to have a UTI that grew ESBL ecoli, multi-drug resistant. she was placed on and completed a 5 day course of ertapenem. She is ready for discharge back to the [facility]. She will be discharged on her usual medications with the addition of a bowel regimen. discharge discussed with Dr Shanon Sarmiento Meds and New Rx's Prescriptions: New polyethylene glycol 3350 17 gram Powder In Packet 17 g PO DAILY Qty: 30 RF: 0 bisacodyl 5 mg Tablet,Delayed Release (Dr/Ec) 5 mg PO BID Qty: 60 RF: 0 docusate sodium [Colace] 100 mg capsule 100 mg PO BID Qty: 60 RF: 0 Continued omeprazole 20 mg capsule,delayed release(DR/EC) 20 mg PO BID RF: 0 potassium chloride 10 mEq tablet extended release 30 meq PO DAILY RF: 0 benztropine 1 mg tablet 1 mg PO BID RF: 0 divalproex 500 mg tablet,delayed release (DR/EC) 2,000 mg PO .QHS RF: 0 ergocalciferol (vitamin D2) [Vitamin D2] 1,250 mcg (50,000 unit) Capsule 50,000 unit PO Q14D RF: 0 CertaVite Senior 0.4-300-250 mg-mcg-mcg Tablet 1 tab PO DAILY RF: 0 atorvastatin 40 mg Tablet 40 mg PO QPM RF: 0 torsemide 20 mg Tablet 60 mg PO DAILY RF: 0 ferrous gluconate 324 mg (37.5 mg iron) Tablet 324 mg PO BID RF: 0 polyethylene glycol 3350 17 gram/dose Powder 17 g PO DAILY RF: 0 senna 8.6 mg Capsule 17.2 mg PO .QHS RF: 0 acetaminophen [Tylenol] 325 mg Tablet 650 mg PO BID RF: 0 magnesium chloride 64 mg Tablet,Delayed Release (Dr/Ec) 128 mg PO BID RF: 0 olanzapine 5 mg tablet 5 mg PO DAILY RF: 0 buspirone 10 mg tablet 10 mg PO TID RF: 0 levothyroxine 150 mcg tablet 150 mcg PO HS RF: 0 polyvinyl alcohol-povidone 0.5-0.6 % Drops 1 drp OPHTHALMIC (EYE) TID RF: 0 food supplemt, lactose-reduced Liquid PO TID RF: 0 clozapine 200 mg tablet 200 mg PO QAM RF: 0 metformin 500 mg tablet 500 mg PO DAILY RF: 0 clozapine 100 mg tablet 300 mg PO QPM RF: 0 budesonide-formoterol [Symbicort] 160-4.5 mcg/actuation Hfa Aerosol Inhaler 2 puff INHALATION BID RF: 0 Discharge Instructions Instructions: Urinary Tract Infection in Women (DC), Bowel Obstruction (DC) Additional Instructions: continue aggressive bowel regimen and monitoring bowel movements closely. drink 6-8 glasses of water daily to stay well hydrated. Referrals: Mikayla Torres [Primary Care Provider] - Activity:: Activity as Tolerated Equipment/Supplies:: No Equipment Needed Diet:: As Tolerated DS: Summary Time Spent with Patient providing and/or coordinating discharge services: Greater than 30 minutes Status at Discharge Functional status at discharge: independent ambulation Overall status at discharge: patient is back to baseline Mental Status: mental status grossly normal Speech and Movement: speech and movement normal Mood: congruent mood Affect: normal affect Exam Const General: frail appearing and ill appearing (older appearing than stated age) chronically Nutritional Appearance: well nourished Orientation: alert, awake, oriented to person and oriented to place [facility] Face and sinus: dry mucous membranes Mouth: moist mucous membranes abnormal (slightly dry, no exudate) Eyes Eyelids: eyelids normal Pupils: PERRL EOM: EOM intact bilaterally Chest Chest: normal inspection of the chest Resp Effort & Inspection: normal respiratory effort and able to speak in complete sentences Auscultation: clear to auscultation bilaterally Cardio Rate: regular rate Rhythm: regular rhythm GI Inspection: normal to inspection and scar Palpation: soft Auscultation: normal bowel sounds Skin General skin exam: no rashes or lesions noted Wounds: no wounds Psych Mental Status: mental status grossly normal Speech and Movement: speech and movement normal Mood: congruent mood Affect: normal affect DS: Data Vitals/I&O Vitals and I&O: Vital Signs Temperature 36.4 C L 01/07/21 08:46 Temperature Source Tympanic 01/07/21 08:46 Pulse 78 01/07/21 08:46 Pulse Rhythm Regular 01/07/21 08:57 Pulse 78 12/31/20 20:20 Respiratory Rate 20 01/07/21 08:46 Respiratory Effort Non-Labored 01/07/21 08:57 Respiratory Depth Normal 01/07/21 08:57 Respiratory Pattern Normal 01/07/21 08:57 Blood Pressure 116/69 01/07/21 08:46 Blood Pressure Mean 69 12/31/20 20:16 Pulse Oximetry 98 01/07/21 08:46 Oxygen Delivery Method Room Air 01/07/21 08:46 Oxygen Flow Rate 0 01/07/21 08:46 Pain Level 0 01/07/21 08:46 Comment 01/05/21 23:00 Intake & Output 01/06/21 01/06/21 01/07/21 11:59 23:59 11:59 Intake Total 460 / 1230 770 / 1230 360 / 360 Output Total 550 / 950 400 / 950 Balance -90 / 280 370 / 280 360 / 360 Intake: IV 160 / 320 160 / 320 110 / 110 Oral 300 / 910 610 / 910 250 / 250 Output: Urine 550 / 950 400 / 950 Other: Urine Color Yellow Yellow Yellow Urine Appearance Clear Clear Clear Urine Odor Normal Stool Size Smear Small Small Stool Characteristics Brown Soft Soft Liquid Voiding Methods Diaper Incontinent Incontinent Data Completed and Pending Labs on day of discharge: Labs from last 24 hours 01/07/21 01/06/21 06:30 15:30 WBC 6.84 RBC 3.02 L Hgb 9.4 L Hct 30.3 L MCV 100.3 H MCH 31.1 MCHC 31.0 L RDW 15.6 H Plt Count 161 MPV 9.5 COVID-19 Source Nasal/Nares SARS-CoV-2 (PCR) Negative [facility] Medical History (Updated 01/06/21 @ 16:06 by Lorraine Pires NP) Acute kidney injury Alcoholism in remission Bipolar 1 disorder Cognitive impairment COPD (chronic obstructive pulmonary disease) Diabetes mellitus type II, controlled Diabetic neuropathy Diastolic dysfunction Falls frequently GERD (gastroesophageal reflux disease) Heart murmur History of alcohol abuse Hyperthyroidism Hypothyroid Left bundle branch block AVANI (obstructive sleep apnea) Pancreatitis Schizoaffective disorder Secondary Parkinson disease Subdural hematoma small right September 2018 2/2 mechanical fall Tobacco dependence Surgical History H/O abdominal surgery S/P thoracotomy Social History Smoking/Tobacco Use Status: Current every day Tobacco Type: cigarettes Smoking packs per day: 0.5 Smoking cigarettes per day: 10.0 Smoking risk assessment performed?: Yes Alcohol Intake: former Drug use: Never Substance use type: does not use Housing: detention current occupation: Disabled. Lives at [facility] [place] use: always Do you feel safe at home: Yes Do you feel safe in your relationship?: Yes Additional Social history: Resident @ [facility] [employer]
--- NOTE | 2021-01-07 11:22 | NUR.NOTE ---
Attempted to call report for nurse to nurse to the [facility], they were busy and stated that they will call back. Nursing Note:
--- NOTE | 2021-01-07 12:11 | NUR.NOTE ---
Gave report to the [facility]. Transport will be here at 1300. Nursing Note:
--- NOTE | 2021-01-07 12:24 | PDOC.CMDIS ---
- If Service Date Differs Date of service: 01/07/21 Time of Service: 12:24 LACE Index Scoring Tool - Questions: Length of Stay (in days): 7 - 13 Acuity (Admit via E.D.?): Yes Comorbidities: Diabetes w/o Complication, Chronic Pulmonary Disease E.D. Visits: 3 - Answers: Total Score: 14 Risk of Readmission: High Risk Care Management Discharge Reason for Hospitalization: SBO Discharge Plan: Danette will return to the [facility] where she residres. She will return as a level I for continued PT before transitioning back to residential. She will transport via [facility], coordinated by CM and follow up with the facility provider and plan of care. Patient/Family Education Needs: Review discharge instructions with pt and facility staff, discussion of self care needs and goals of care
--- NOTE | 2021-01-08 09:42 | INDS_ITS ---
Date of service: 01/08/21 Time of Service: 09:42 PT Notes Visit Reasons: SBO Physical Therapy Inpatient Discharge Summary Date: 01/08/2021 Dates of Service: 01/04/2021 only This is a clinical summary of care provided for the duration of dates listed above. No charge was made in the completion of this documentation. Referring Doctor: Lorraine Pires NP PT Orders: PT CONSULT: Eval/treat Precautions: Fall. Standard. Activity as tolerated. At risk for agitation. Patient Profile/Admitting Diagnosis: Juan is a 55-year-old female who presented to the ED on 01/01/2020 due to abdominal pain, bloating, distention, nausea, and vomiting. Patient is diagnosed with small bowel obstruction with orders for physical therapy for mobilization. PMHX: Medical History (Updated 12/31/20 @ 19:09 by Edy Pinto MD) Acute kidney injury Alcoholism in remission Bipolar 1 disorder Cognitive impairment COPD (chronic obstructive pulmonary disease) Diabetes mellitus type II, controlled Diabetic neuropathy Diastolic dysfunction Falls frequently GERD (gastroesophageal reflux disease) Heart murmur History of alcohol abuse Hyperthyroidism Hypothyroid Left bundle branch block AVANI (obstructive sleep apnea) Pancreatitis Schizoaffective disorder Secondary Parkinson disease Subdural hematoma small right September 2018 2/2 mechanical fall Tobacco dependence Surgical History H/O abdominal surgery S/P thoracotomy Social History/Home Situation: Long-term care resident at the [facility]. Supervision for all facility ambulation using front wheeled walker. Equipment Owned/DME: Front wheel walker Subjective: NT. See most recent DETONATOR ASSEMBLER notes. Objective: General Observation: NT. See most recent DETONATOR ASSEMBLER notes. Mental Status: NT. See most recent DETONATOR ASSEMBLER notes. Pain: NT. See most recent DETONATOR ASSEMBLER notes. ROM: Right Upper Extremity: Grossly WFL Left Upper Extremity: Grossly WFL Right Lower Extremity: Grossly WFL Left Lower Extremity: Grossly WFL Strength: Right Upper Extremity: Shoulder flexors 5/5. Shoulder abductors 5/5. Elbow flexors 5/5. Elbow extensors 5/5. Door To Door Selling Distributor strong. Left Upper Extremity: Shoulder flexors 5/5. Shoulder abductors 5/5. Elbow flexors 5/5. Elbow extensors 5/5. Door To Door Selling Distributor strong. Right Lower Extremity: Hip flexors 5/5. Hip abductors 5/5. Knee flexors 5/5. Knee extensors 5/5. Ankle dorsiflexors 5/5. Ankle plantarflexors 5/5. Left Lower Extremity: Hip flexors 5/5. Hip abductors 5/5. Knee flexors 5/5. Knee extensors 5/5. Ankle dorsiflexors 5/5. Ankle plantarflexors 5/5. Bed Mobility/Transfers: Rolling contact-guard assist Supine to sit contact-guard assist with HOB at 30 degrees Sit to supine minimal assist of 2 Sit to stand contact-guard assist with front wheeled walker Stand to sit contact-guard assist with front wheel walker Gait: Instructed patient with level surface ambulation of 35 feet +50 feet +20 feet with front wheeled walker requiring contact-guard assist. Mild instability seen during directional changes. Requires moderate verbal cueing for walker management. Reports fatigue and moderate shortness of breath. Balance: Static Sitting: Normal Dynamic Sitting: Good Static Standing: Fair Dynamic Standing: Fair Special Tests: Mobility Limitations Standardized Measure [facility] AM-PAC 6 clicks Basic Mobility Inpatient Short Form: Raw Score: 17 CMS Score: 51% deficit Informed Consent/Education: Patient was instructed in purpose of PT consult and plan of care. Agreeable to proceed with established PT POC to achieve personal goals. Assessment: Barriers to achieving goals at this time high risk for agitation, psych diagnoses, shortness of breath, and generalized weakness. Patient presents with clinical signs and symptoms consistent with current/admitt ing diagnoses that have resulted to mobility limitations, gait instability, generalized weakness, and overall ADL decline as demonstrated by the following impairment level findings: 1. Decreased strength to BUE/LE major muscle groups 2. Impaired sitting/standing balance 3. Impaired activity tolerance 5. Shortness of breath 6. High risk for agitation Impairments are contributing to the following functional limitations: 1. Decline in bed mobility skills 2. Decline in transfer skills 3. Difficulty with ambulation without assistive device and physical assistance 4. Increased completion time for mobility ADL performance 5. Increased risk for falls 6. Difficulty with managing steps alone safely Patient is assessed as a 55490 high complexity based on the following: History: 55-year-old female with past medical history as indicated above Examination: Demonstrable impairment in strength, balance, and mobility level with underlying impairments and functional limitations as exhibited above as well as deficit score of 51% utilizing the [facility] Mobility Inpatient Short Form Presentation: Unstable Decision Makin high complexity Goals: Goals X1 week 1. Supine-Sit independent NOT MET 2. Sit-Supine independent NOT MET 3. Sit-Stand independent NOT MET 4. Stand-Sit supervision with FWW NOT MET 5. Bed-Chair supervision with FWW NOT MET 6. Chair-Bed supervision with FWW NOT MET 7. Supervision with FWW gait on level surface with use of FWW for at least 100 feet without report of pain nor dyspnea NOT MET 8. Supervision with home exercise program NOT MET 9. Good static and dynamic standing balance/tolerance NOT MET DISCHARGE RECOMMENDATIONS: Return to SNF when medically cleared by hospitalist. May require continued short-term PT services to regain prior level of function using front wheel walker. TREATMENT CODE/TIME: ME Thank you for the opportunity to participate in the care of this patient. Loerna Piedra PT, DPT, CLT [facility] [place], [place]
== END 2021-01-07 12:55 | disposition skilled nursing facility (03) | DRG 389 ==
LOC: ER 19:25 → MS 20:27
PROVIDERS: Internal Medicine; Nurse Practitioner Acute Care; Pathology Anatomic Pathology & Clinical Pathology; Surgery; Admitting Provider General Practice; Emergency Provider Emergency Medicine; PCP Family Medicine; Visit Provider General Practice
DX: K56.609 Unspecified intestinal obstruction, unspecified as to partial versus complete obstruction (principal); F31.89 Other bipolar disorder; E44.1 Mild protein-calorie malnutrition; N30.00 Acute cystitis without hematuria; Z16.12 Extended spectrum beta lactamase (ESBL) resistance; F10.21 Alcohol dependence, in remission; G31.84 Mild cognitive impairment of uncertain or unknown etiology; J44.9 Chronic obstructive pulmonary disease, unspecified; E11.40 Type 2 diabetes mellitus with diabetic neuropathy, unspecified; R29.6 Repeated falls; K21.9 Gastro-esophageal reflux disease without esophagitis; E03.9 Hypothyroidism, unspecified; I44.7 Left bundle-branch block, unspecified; G47.33 Obstructive sleep apnea (adult) (pediatric); G20 Parkinson's disease; F17.210 Nicotine dependence, cigarettes, uncomplicated; Z79.84 Long term (current) use of oral hypoglycemic drugs; Z20.822 Contact with and (suspected) exposure to COVID-19; I51.89 Other ill-defined heart diseases; F20.3 Undifferentiated schizophrenia; Z68.29 Body mass index [BMI] 29.0-29.9, adult; D64.9 Anemia, unspecified; K59.09 Other constipation; B96.20 Unspecified Escherichia coli [E. coli] as the cause of diseases classified elsewhere
CPT/HCPCS: 36415; 80048; 80053; 83690; 85027; 87077; 87081; 87635; 93005; 94640; 96361; 96374; 96375; 97163; 97530; 99221; 99231; 99232; 99285; J1650; 74018; 74019; 74177; 81003; 81015; 82607; 83540; 83550; 83605; 83735; 83880; 85025; 86140; 87086; 87186; 93010; 99222; 99233; 99239; J0131; J1335; J1756; J2060; J2405; J3480; J3490; J7042

== ENCOUNTER 2020-12-31 18:26 | Outpatient (REF) | payer MEDICARE, MEDICAID, SELFPAY ==
[2020-12-31 19:19] LABS: Bilirubin Small (Negative); Blood Negative (Negative); Clarity Cloudy (Clear); Glucose Negative (Negative); Ketones Trace mg/dL (Negative); Leukocyte Esterase Moderate (Negative); Nitrite Negative (Negative); Urobilinogen 0.2 EU/dL (Up TO 0.2); pH 5.5 (5-8)
[2020-12-31 19:56] LABS: Bacteria Many HPF (Negative); Epithelial Cells Many HPF (Negative); WBC >50 HPF (0-5)
[2020-12-31 19:57] LABS: C & S Indicated? No/Sq. Contamination
== END 2020-12-31 18:27 | disposition home or self-care (01) ==
LOC: LBN 18:26
PROVIDERS: PCP Family Medicine; Visit Provider Internal Medicine
DX: N39.0 Urinary tract infection, site not specified (principal)
CPT/HCPCS: 81003; 81015

== ENCOUNTER 2021-01-15 16:26 | Outpatient (REF) | payer MEDICARE, MEDICAID, SELFPAY ==
[2021-01-15 17:26] LABS: Abs Immature Grans 0.04 10^3/uL (0.0-0.06); Absolute Basophil Count 0.05 10^3/uL (0.0-0.2); Absolute Lymphocyte Count 3.02 10^3/uL (1.2-3.4); Absolute Monocyte Count 0.68 10^3/uL (0.1-0.8); Absolute Neutrophil Count 6.37 10^3/uL (1.2-6.7); Basophils % 0.5; HCT 34.1 % (36.0-46.0); HGB 10.8 g/dL (11.2-15.7); Immature Grans % 0.4; Lymphocytes % 29.7; MCH 31.8 pg (27.0-33.0); MCHC 31.7 % (32.0-36.0); MCV 100.3 fL (80-95); MPV 11.2 fL (8.0-11.0); Monocytes % 6.7; Neutrophils % 62.7; Nucleated RBC 0 %; Platelet Count 245 10^3/uL (130-400); RDW 15.7 % (11.7-14.6); RDW-SD 58.2 fL; WBC 10.16 10^3/uL (4.4-10.8)
[2021-01-15 23:37] LABS: Hemoglobin A1C 4.9 % (<5.7)
== END 2021-01-15 16:27 | disposition home or self-care (01) ==
LOC: LBN 16:26
PROVIDERS: PCP Family Medicine; Visit Provider Internal Medicine
DX: E08.59 Diabetes mellitus due to underlying condition with other circulatory complications (principal); D72.829 Elevated white blood cell count, unspecified; F31.5 Bipolar disorder, current episode depressed, severe, with psychotic features
CPT/HCPCS: 83036; 85025

== ENCOUNTER → 2021-01-24 11:34 | Outpatient (BNVA) | payer MEDICARE, MEDICAID, SELFPAY | PROVIDERS: PCP Family Medicine; Referring Provider Family Medicine; Visit Provider Surgery | DX: R13.10 Dysphagia, unspecified (principal) | CPT/HCPCS: 99212; 99213 ==

== ENCOUNTER 2021-02-11 19:01 | Outpatient (REF) | payer MEDICARE, MEDICAID, SELFPAY ==
[2021-02-11 17:27] LABS: Abs Immature Grans 0.09 10^3/uL (0.0-0.06); Absolute Basophil Count 0.09 10^3/uL (0.0-0.2); Absolute Lymphocyte Count 2.89 10^3/uL (1.2-3.4); Absolute Monocyte Count 0.75 10^3/uL (0.1-0.8); Absolute Neutrophil Count 4.34 10^3/uL (1.2-6.7); Basophils % 1.1; HCT 34.7 % (36.0-46.0); HGB 11.3 g/dL (11.2-15.7); Immature Grans % 1.1; Lymphocytes % 35.4; MCH 32.3 pg (27.0-33.0); MCHC 32.6 % (32.0-36.0); MCV 99.1 fL (80-95); MPV 11.3 fL (8.0-11.0); Monocytes % 9.2; Neutrophils % 53.2; Nucleated RBC 0 %; Platelet Count 159 10^3/uL (130-400); RDW 14.6 % (11.7-14.6); RDW-SD 53.5 fL; WBC 8.16 10^3/uL (4.4-10.8)
== END 2021-02-11 19:02 | disposition home or self-care (01) ==
LOC: LBN 19:01
PROVIDERS: PCP Family Medicine; Visit Provider Internal Medicine
DX: D72.829 Elevated white blood cell count, unspecified (principal); F60.1 Schizoid personality disorder; F31.5 Bipolar disorder, current episode depressed, severe, with psychotic features
CPT/HCPCS: 85025

== ENCOUNTER 2021-02-12 15:08 | Outpatient (REF) | payer SELFPAY ==
--- NOTE | 2021-02-12 13:35 | PAPFT_PTH ---
PATIENT: Danette Shook LOC: [facility] U#:[id number] AGE/SX: 55/F ROOM: RE02/12/[address]: Kelley Ferrari DO : 1965 BED: DIS: 02/12/2021 SPEC #: [id number] RECD: 02/12/21 17:39 STATUS: SARA REQ #: [id number] PINEDA: 02/12/21 13:[address]: Kelley Ferrari DEPT: REPLACED BY [facility] Cytology RECD BY: Anayeli Palacios ENTERED: 02/12/21 17:40 SP TYPE: PAPFT OTHR DR: Mikayla Torres Tissues: 1 - CX/ENDOCX FOR PAP SMEARS Procedures: PAP THIN PREP/UVM Screening HPV DNA PROBE Comments: [id number]
== END 2021-02-12 15:09 | disposition home or self-care (01) ==
LOC: LBN 15:08
PROVIDERS: PCP Family Medicine; Visit Provider Obstetrics & Gynecology
DX: Z12.4 Encounter for screening for malignant neoplasm of cervix (principal); Z11.51 Encounter for screening for human papillomavirus (HPV)
CPT/HCPCS: 88142; 87624

== ENCOUNTER 2021-02-25 20:03 | Outpatient (REF) | payer MEDICARE, MEDICAID, SELFPAY ==
[2021-02-25 20:58] LABS: Abs Immature Grans 0.05 10^3/uL (0.0-0.06); Absolute Basophil Count 0.05 10^3/uL (0.0-0.2); Absolute Eosinophil Count 0.11 10^3/uL (0.0-0.7); Absolute Lymphocyte Count 2.89 10^3/uL (1.2-3.4); Absolute Monocyte Count 0.67 10^3/uL (0.1-0.8); Absolute Neutrophil Count 3.17 10^3/uL (1.2-6.7); Basophils % 0.7; Eosinophils % 1.6; HCT 35.7 % (36.0-46.0); HGB 11.3 g/dL (11.2-15.7); Immature Grans % 0.7; Lymphocytes % 41.6; MCH 32.7 pg (27.0-33.0); MCHC 31.7 % (32.0-36.0); MCV 103.2 fL (80-95); MPV 11.9 fL (8.0-11.0); Monocytes % 9.7; Neutrophils % 45.7; Nucleated RBC 0 %; RBC 3.46 10^6/uL (3.93-5.22); RDW 14.6 % (11.7-14.6); WBC 6.94 10^3/uL (4.4-10.8)
[2021-02-25 21:14] LABS: Platelet Count 88 10^3/uL (130-400)
== END 2021-02-25 20:04 | disposition home or self-care (01) ==
LOC: LBN 20:03
PROVIDERS: PCP Family Medicine; Visit Provider Nurse Practitioner Gerontology
DX: D72.829 Elevated white blood cell count, unspecified (principal)
CPT/HCPCS: 85025

== ENCOUNTER 2021-03-04 13:48 | Outpatient (REF) | payer MEDICARE, MEDICAID, SELFPAY ==
[2021-03-05 20:47] LABS: COVID-19 RT-PCR UVMMC Result Negative (Negative)
== END 2021-03-04 13:49 | disposition home or self-care (01) ==
LOC: LBN 13:48
PROVIDERS: PCP Family Medicine; Visit Provider Surgery
DX: Z20.822 Contact with and (suspected) exposure to COVID-19 (principal)
CPT/HCPCS: 87635; U0003; U0005

== ENCOUNTER 2021-03-06 08:39 | Day surgery (SDC) | payer MEDICARE, MEDICAID, SELFPAY ==
[2021-03-06] VITALS (9 sets, daily range): BP systolic 95–128; BP diastolic 42–66; PULSE 69–83; RESP 16–22; TEMP 35.9–36.4; O2SAT 97–99; BMI 29.0
--- NOTE | 2021-03-06 06:41 | HPE_ITS ---
Assessment and Plan Assessment and plan (1) Dysphagia: Status: Resolved Assessment and plan: Danette is a 55-year-old female with a lot of psych gastric issues who was just recently admitted for a small bowel obstruction and anemia. [facility]. She was seen by speech therapy who recommended a modified barium swallow which was never done by the [facility]. The therapist did not know if her poor p.o. intake was due to a phys iologic reason or because it was due to malingering. The patient states that she is unable to eat solids without throwing up. She has lost weight per patient. We do not have a current weight as the patient did not want to get up onto the scale. Again no notes of the past medical history or medication list were sent by the [place]. At this point we will try to proceed with EGD. This was discussed with the patient and she does agree to that today. Risks, benefits and complications have been reviewed. Complications include but are not limited to bleeding, pain, perforation, sore throat, aspiration, and adverse reaction to the medications. Questions were entertained and answered to their satisfaction and they wished to proceed. No guarantees were given or implied. Qualifiers: Dysphagia type: unspecified Qualified Code(s): R13.10 - Dysphagia, unspecified History of Present Illness Narrative: Ms Shook is a 55-year-old female recently admitted to the hospital for small bowel obstruction and anemia. She has now sent to us from the [facility] for dysphagia. She was seen by a speech therapist who recommended a modified barium swallow which was never ordered. The therapist wanted to rule out physiologic reason for the swallowing problems versus malingering. The patient is a poor historian. She tells me that she is unable to eat anything because she throws up. She does tell me that liquids seem to stay down without any trouble. There was no question of dysphagia when she was hospitalized recently. Her past medical history is significant for obstructive sleep apnea, bipolar 1 disorder/schizophrenia, reflux, left bundle branch block, hyperlipidemia diabetes, hypothyroidism. No changes in her health since she was seen in the office Review of Systems Cardiovascular Cardiovascular: Denies chest pain, Denies chest pain at rest, Denies irregular heart rhythm, Denies dyspnea and Denies dyspnea on exertion Respiratory Respiratory: Denies cough, Denies dyspnea and Denies dyspnea on exertion Gastrointestinal Gastrointestinal: Reports as per HPI Genitourinary Genitourinary: Denies dysuria, Denies urinary incontinence and Denies urinary urgency Endocrine Endocrine: Reports system reviewed and no additional complaints, except as documented Hematologic/Lymphatic Hematologic/Lymphatic: Denies easy bruising and Denies lymphadenopathy PFSH All Active Problems Diabetes mellitus type II, controlled (Acute) Hypothyroid (Chronic) COPD (chronic obstructive pulmonary disease) (Chronic) Secondary Parkinson disease (Acute) Cognitive impairment (Acute) Schizoaffective disorder (Chronic) Diastolic dysfunction (Chronic) Discharge planning issues (Acute) Apneic episode (Acute) Acute metabolic encephalopathy (Acute) Bowel obstruction (Acute) Anemia (Chronic) Chronic constipation (Acute) Neuroleptic-induced parkinsonism (Acute) Well woman exam with routine gynecological exam (Acute) Medical History Acute kidney injury Alcoholism in remission Auditory hallucinations Per [facility] ETL INFORMATICA ARCHITECT: her baseline she has auditory hallucinations hears Satan, goes into episodes of marjan, history of being hypersexual, history of throwing items, pt. isn't allowed to have items in her room when she is manic. Bipolar 1 disorder Community acquired pneumonia COPD (chronic obstructive pulmonary disease) Dehydration Diabetic neuropathy DVT prophylaxis Electrolyte abnormality GERD (gastroesophageal reflux disease) Heart murmur History of alcohol abuse Hyperthyroidism Left bundle branch block Per [facility] states that is not on her current list. Per [facility] states she does see a sanitary napkin machine tender Myocardial infarction 2018 per ETL INFORMATICA ARCHITECT at [facility]- has not seen cards AVANI (obstructive sleep apnea) Pancreatitis Protein-calorie malnutrition, mild Rib pain on right side Subdural hematoma small right September 2018 2/2 mechanical fall Tobacco dependence Surgical History H/O abdominal surgery S/P thoracotomy Social History Smoking/Tobacco Use Status: Current every day Smoking risk assessment performed?: Yes Alcohol Intake: former Drug use: Never Substance use type: does not use Details: Nicotrol inhalers Housing: snf current occupation: Disabled. Lives at [facility] Seatbelt use: always Do you feel safe at home: Yes Do you feel safe in your relationship?: Yes Additional Social history: Resident @ [facility] Allergies and Home Medications Allergies Allergy/AdvReac Type Severity Reaction Status Date / Time prednisone Allergy Unknown Unverified 03/06/21 09:02 lithium Allergy Unverified 03/06/21 09:02 oxycodone [From OxyContin] Allergy Unverified 03/06/21 09:02 Penicillins Allergy Unverified 03/06/21 09:02 pioglitazone Allergy Unverified 03/06/21 09:02 Sulfa (Sulfonamide Allergy Unverified 03/06/21 09:02 Antibiotics) tramadol Allergy Unverified 03/06/21 09:02 Home Medications Medication Instructions Recorded Confirmed Type budesonide-formoterol [Symbicort] 2 puff INHALATION BID 02/06/19 03/06/21 History CertaVite Senior 1 tab PO DAILY 03/04/19 03/06/21 History atorvastatin 40 mg PO QPM 03/04/19 03/06/21 History ergocalciferol (vitamin D2) 50,000 unit PO Q14D 03/04/19 03/06/21 History [Vitamin D2] torsemide 60 mg PO DAILY 03/04/19 03/06/21 History senna 17.2 mg PO .QHS 04/25/19 03/06/21 History benztropine 1 mg tablet 1 mg PO BID 08/04/19 03/06/21 History divalproex 500 mg tablet,delayed 2,000 mg PO .QHS tab 08/04/19 03/06/21 History release omeprazole 20 mg capsule,delayed 20 mg PO BID 08/04/19 03/06/21 History release potassium chloride 10 mEq 30 meq PO DAILY tab 08/04/19 03/06/21 History tablet,extended release acetaminophen [Tylenol] 650 mg PO BID 02/01/20 03/06/21 History magnesium chloride 128 mg PO BID 02/01/20 03/06/21 History buspirone 10 mg PO TID 11/15/20 03/06/21 History levothyroxine 150 mcg PO HS 11/15/20 03/06/21 History olanzapine 5 mg PO DAILY 11/15/20 03/06/21 History polyvinyl alcohol-povidone 1 drp OPHTHALMIC (EYE) TID 11/15/20 03/06/21 History clozapine 200 mg PO QAM 12/31/20 03/06/21 History clozapine 300 mg PO QPM 12/31/20 03/06/21 History food supplemt, lactose-reduced 100 ml PO TID 12/31/20 03/06/21 History metformin 500 mg PO DAILY 12/31/20 03/06/21 History bisacodyl 5 mg PO BID #60 tab 01/07/21 03/06/21 Rx docusate sodium [Colace] 100 mg PO BID #60 cap 01/07/21 03/06/21 Rx polyethylene glycol 3350 17 g PO DAILY #30 ea 01/07/21 03/06/21 Rx albuterol sulfate 90 mcg/actuation 2 puff INHALATION Q4H PRN g 01/24/21 03/06/21 History aerosol inhaler nitroglycerin 0.4 mg sublingual 0.4 mg SUBLINGUAL Q5M PRN 01/24/21 03/06/21 History tablet ondansetron HCl 4 mg tablet 4 mg PO Q6H 01/24/21 03/06/21 History Exam Const General: healthy appearing and comfortable Resp Effort & Inspection: normal respiratory effort Auscultation: clear to auscultation bilaterally Cardio Rate: regular rate Rhythm: regular rhythm Heart Sounds: no click, no gallops and no murmurs
--- NOTE | 2021-03-06 06:43 | W.PM.DSUDISC ---
Discharge Plan Disposition Patient Disposition: HOME Condition: Good Discharge Details Reason For Visit: Dysphagia Attending Provider: Ángela Mcgregor Primary Care Provider: Aranza Mackenzie Home Meds and New Rx's Prescriptions: New omeprazole 40 mg capsule,delayed release(DR/EC) 40 mg PO DAILY Qty: 90 RF: 0 Continued potassium chloride 10 mEq tablet extended release 30 meq PO DAILY RF: 0 benztropine 1 mg tablet 1 mg PO BID RF: 0 divalproex 500 mg tablet,delayed release (DR/EC) 2,000 mg PO .QHS RF: 0 nitroglycerin [Nitrostat] 0.4 mg tablet, sublingual 0.4 mg sublingual Q5M PRNRF: 0 ondansetron HCl 4 mg tablet 4 mg PO Q6H RF: 0 albuterol sulfate 90 mcg/actuation HFA aerosol inhaler 2 puff inhalation Q4H PRNRF: 0 ergocalciferol (vitamin D2) [Vitamin D2] 1,250 mcg (50,000 unit) Capsule 50,000 unit PO Q14D RF: 0 CertaVite Senior 0.4-300-250 mg-mcg-mcg Tablet 1 tab PO DAILY RF: 0 atorvastatin 40 mg Tablet 40 mg PO QPM RF: 0 torsemide 20 mg Tablet 60 mg PO DAILY RF: 0 senna 8.6 mg Capsule 17.2 mg PO .QHS RF: 0 acetaminophen [Tylenol] 325 mg Tablet 650 mg PO BID RF: 0 magnesium chloride 64 mg Tablet,Delayed Release (Dr/Ec) 128 mg PO BID RF: 0 olanzapine 5 mg tablet 5 mg PO DAILY RF: 0 buspirone 10 mg tablet 10 mg PO TID RF: 0 levothyroxine 150 mcg tablet 150 mcg PO HS RF: 0 polyvinyl alcohol-povidone 0.5-0.6 % Drops 1 drp OPHTHALMIC (EYE) TID RF: 0 food supplemt, lactose-reduced Liquid 100 ml PO TID RF: 0 clozapine 200 mg tablet 200 mg PO QAM RF: 0 metformin 500 mg tablet 500 mg PO DAILY RF: 0 clozapine 100 mg tablet 300 mg PO QPM RF: 0 polyethylene glycol 3350 17 gram Powder In Packet 17 g PO DAILY Qty: 30 RF: 0 bisacodyl 5 mg Tablet,Delayed Release (Dr/Ec) 5 mg PO BID Qty: 60 RF: 0 docusate sodium [Colace] 100 mg capsule 100 mg PO BID Qty: 60 RF: 0 budesonide-formoterol [Symbicort] 160-4.5 mcg/actuation Hfa Aerosol Inhaler 2 puff INHALATION BID RF: 0 Discontinued omeprazole 20 mg capsule,delayed release(DR/EC) 20 mg PO BID RF: 0 Discharge Instructions Instructions: Diet for Stomach Ulcers and Gastritis (ED), Esophagitis (DC), Gastritis (ED) Additional Instructions: Findings: Moderate inflammation of the stomach and esophagus Follow up: I will send a letter with results and recommendations Please call if you develop: fevers >101.5 Nausea or Vomiting Abdominal pain that is not transient Rectal bleeding that is more then a tbsp A hard abdomen and inability to pass gas DAY SURGERY UNIT POST ENDOSCOPY INSTRUCTIONS Instructions for everyone who is given Anesthesia: For your safety, please do the following for the next 24 Hours: a. Do not drive or operate dangerous equipment b. Do not drink alcohol beverages or use any recreational drugs for the first 24 hours or while taking pain medications. The medications in your body may have a reaction that can be dangerous. c. Do not make any important decisions or sign any important papers 1. Generally there are no restrictions on your activity after a day or so has gone by, but you may feel a bit fatigued for a few days. 2. After you arrive home you may have a light meal and return to a normal diet as you can tolerate it without feeling sick to your stomach. 3. After surgery, you may feel pain or discomfort. This should be only transient, but if it persists please contact your doctor. 4. If there are any questions regarding the findings of your procedure, please feel free to contact your doctor. 6. If you are unable to contact your doctor with a problem, contact the hospital at [phone]. 7. Continue all your regular medications unless directed otherwise. I understand the above instructions and have no questions. Signature of Patient or Responsible Adult Escort Date/Time Name of Responsible Adult Escort Signature of Nurse Date/Time Activity:: Activity as Tolerated Diet:: low acid Discharge Orders Discharge Orders: Discharge Order (Routine); Ordered 03/06/21 Ordered By: Ángela Mcgregor DS: Diagnosis Discharge Diagnosis (1) Dysphagia: Status: Resolved
--- NOTE | 2021-03-06 06:44 | W.PM.ENDDOP ---
Date of service: 03/06/21 Time of Service: 10:34 Endoscopy Report DATE OF PROCEDURE: 03/06/21 PRE-OP DIAGNOSIS: Dysphagia POST-OP DIAGNOSIS: other (esophagitis, gastritis) PROCEDURE: EGD with biopsies SURGEON: Ángela Mcgregor ANESTHESIA TYPE: General:No Airway (Edy Young, TIM) ESTIMATED BLOOD LOSS: 3 PATHOLOGY: other (gastric bx, bx of pyloric uolcer/mass and gastric ulcer/mass, bx of GE junction) COMPLICATIONS: None DISPOSITION: same day INDICATIONS: Danette is a 55-year-old female with a lot of psych gastric issues who was just recently admitted for a small bowel obstruction and anemia. She was referred by [facility] for an EGD. She was seen by speech therapy who recommended a modified barium swallow which was never done by the [place]. The therapist did not know if her poor p.o. intake was due to a physiologic reason or because it was due to malingering. The patient states that she is unable to eat solids without throwing up. She has lost weight per patient. We do not have a current weight as the patient did not want to get up onto the scale. Again no notes of the past medical history or medication list were sent by the [facility]. At this point we will try to proceed with EGD. This was discussed with the patient and she does agree to that today. Risks, benefits and complications have been reviewed. Complications include but are not limited to bleeding, pain, perforation, sore throat, aspiration, and adverse reaction to the medications. Questions were entertained and answered to their satisfaction and they wished to proceed. No guarantees were given or implied. FINDINGS: moderate inflammation retained food PROCEDURE DESCRIPTION: After informed consent was obtained the patient was take to the procedure room and placed in a supine position. Monitors were applied and a time out was done. The patients name, date of , procedure type, allergies to medications and metal in their body was reviewed. A bite block was placed and the patient was sedated. Once sedated and comfortable the gastroscope was advanced through the oropharynx which was grossly normal into the esophagus. The proximal and mid-esophagus were normal. In the distal esophagus there was inflammation noted. The scope was advanced into the stomach and through the pylorus into the 3rd portion of the duodenum. The duodenum was noted to be normal. There was food within the duodenum and stomach. The scope was retracted back into the stomach. There was a ? mass just above the pylorus whcih was biopsied. There was a mass ? in the antrum which was also biopsied. Biopsies were done to rule out H. pylori. There were no ulcers. The scope was retroflexed. The cardia and fundus were noted to be normal. There was a hiatal hernia noted. The scope was retracted back into the esophagus and biopsies were done of the GE junction to rule out Hudson's. The Z line was regular. The GE junction was at 30 cm. The scope was removed and the patient was woken up and taken back to [facility] in stable condition. Follow up: as needed
--- NOTE | 2021-03-06 09:54 | ANES.PREOP_ITS ---
General Info Date of Service Date Performed: 03/06/21 Height: 5 ft Weight: 67.6 kg Body Mass Index (BMI): 29.0 Surgical Procedure: Operation Date: 03/06/21 10:05 Proposed Procedures Side Surgeon p Gastroscopy Ángela Mcgregor MD Meds Allergies and Home Medications Allergies Allergy/AdvReac Type Severity Reaction Status Date / Time prednisone Allergy Unknown Unverified 03/06/21 09:02 lithium Allergy Unverified 03/06/21 09:02 oxycodone [From OxyContin] Allergy Unverified 03/06/21 09:02 Penicillins Allergy Unverified 03/06/21 09:02 pioglitazone Allergy Unverified 03/06/21 09:02 Sulfa (Sulfonamide Allergy Unverified 03/06/21 09:02 Antibiotics) tramadol Allergy Unverified 03/06/21 09:02 Home Medication Medication Instructions Recorded budesonide-formoterol [Symbicort] 2 puff INHALATION BID 02/06/19 CertaVite Senior 1 tab PO DAILY 03/04/19 atorvastatin 40 mg PO QPM 03/04/19 ergocalciferol (vitamin D2) 50,000 unit PO Q14D 03/04/19 [Vitamin D2] torsemide 60 mg PO DAILY 03/04/19 senna 17.2 mg PO .QHS 04/25/19 benztropine 1 mg tablet 1 mg PO BID 08/04/19 divalproex 500 mg tablet,delayed 2,000 mg PO .QHS tab 08/04/19 release omeprazole 20 mg capsule,delayed 20 mg PO BID 08/04/19 release potassium chloride 10 mEq 30 meq PO DAILY tab 08/04/19 tablet,extended release acetaminophen [Tylenol] 650 mg PO BID 02/01/20 magnesium chloride 128 mg PO BID 02/01/20 buspirone 10 mg PO TID 11/15/20 levothyroxine 150 mcg PO HS 11/15/20 olanzapine 5 mg PO DAILY 11/15/20 polyvinyl alcohol-povidone 1 drp OPHTHALMIC (EYE) TID 11/15/20 clozapine 200 mg PO QAM 12/31/20 clozapine 300 mg PO QPM 12/31/20 food supplemt, lactose-reduced 100 ml PO TID 12/31/20 metformin 500 mg PO DAILY 12/31/20 bisacodyl 5 mg PO BID #60 tab 01/07/21 docusate sodium [Colace] 100 mg PO BID #60 cap 01/07/21 polyethylene glycol 3350 17 g PO DAILY #30 ea 01/07/21 albuterol sulfate 90 mcg/actuation 2 puff INHALATION Q4H PRN g 01/24/21 aerosol inhaler nitroglycerin 0.4 mg sublingual 0.4 mg SUBLINGUAL Q5M PRN 01/24/21 tablet ondansetron HCl 4 mg tablet 4 mg PO Q6H 01/24/21 Current Visit Medications: Current Medications Generic Name Dose Route Start Last Admin Trade Name Freq PRN Reason Stop Dose Admin Ringer's Solution 1,000 mls @ 80 mls/hr 03/06/21 06:00 IV 03/08/21 23:59 [facility] IV Miscellaneous Supplies 1 each 03/06/21 06:00 Iv Access IV 03/08/21 23:59 DIRECTED ROSELYN Ondansetron HCl 4 mg 03/06/21 06:44 Ondansetron 4 Mg/2 Ml Vial IVP Q4H PRN PRN Nausea / Vomiting Sodium Chloride 0 ml 03/06/21 06:00 Normal Saline Flush 10 Ml Syr IV 03/08/21 23:59 PRN PRN Sodium Chloride 0 ml 03/06/21 06:00 Normal Saline 10 Ml Vial IJ 03/08/21 23:59 DIRECTED PRN Sterile Water 0 ml 03/06/21 06:00 Water,Injection,Sterile 10 Ml Vial IJ 03/08/21 23:59 DIRECTED PRN PFSH Active Problems Active Problems: Problem Status Onset Code Diabetes mellitus type II, controlled E11.9 Hypothyroid E03.9 COPD (chronic obstructive pulmonary disease) J44.9 Falls frequently R29.6 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 Cognitive impairment R41.89 Schizoaffective disorder F25.9 Diastolic dysfunction I51.89 Discharge planning issues Z02.9 Dysphagia R13.10 Apneic episode R06.81 Acute metabolic encephalopathy G93.41 Bowel obstruction K56.609 Small bowel obstruction K56.609 Anemia D64.9 Chronic constipation K59.09 Neuroleptic-induced parkinsonism G21.11 Well woman exam with routine gynecological exam Z01.419 Medical History Medical History Acute kidney injury Alcoholism in remission Auditory hallucinations Per [facility] AGRICULTURAL SERVICES DIRECTOR: her baseline she has auditory hallucinations hears Satan, goes into episodes of marjan, history of being hypersexual, history of throwing i tems, pt. isn't allowed to have items in her room when she is manic. Bipolar 1 disorder Community acquired pneumonia COPD (chronic obstructive pulmonary disease) Dehydration Diabetic neuropathy DVT prophylaxis Electrolyte abnormality GERD (gastroesophageal reflux disease) Heart murmur History of alcohol abuse Hyperthyroidism Left bundle branch block Per [facility] states that is not on her current list. Per [facility] states she does see a fashion consultant selling Myocardial infarction 2018 per AGRICULTURAL SERVICES DIRECTOR at [facility]- has not seen cards AVANI (obstructive sleep apnea) Pancreatitis Protein-calorie malnutrition, mild Rib pain on right side Subdural hematoma small right September 2018 2/2 mechanical fall Tobacco dependence Surgical History Surgical History H/O abdominal surgery S/P thoracotomy Tobacco Smoking/Tobacco Use Status: Current every day Alcohol Alcohol Intake: former Substance Use Substance use: Never Substance use type: does not use Details: Nicotrol inhalers Vital Signs and Lab Results Vital Signs Most Recent Vital Signs in EMR: Most Recent Vital Signs Temp Pulse Resp BP Pulse Ox 36 C L 83 18 124/66 99 03/06/21 08:56 03/06/21 08:56 03/06/21 08:56 03/06/21 08:56 03/06/21 08:56 Point of Care Results Point of Care Results: Finger Stick Blood Glucose 92 03/06/21 09:00 Lab Results Blood Type / Crossmatch: No Data to Display Complete Blood Count: White Blood Count 6.94 10^3/uL (4.4-10.8) 02/25/21 13:55 02/25/21 Red Blood Count 3.46 10^6/uL (3.93-5.22) L 02/25/21 13:55 02/25/21 Hemoglobin 11.3 g/dL (11.2-15.7) 02/25/21 13:55 02/25/21 Hematocrit 35.7 % (36.0-46.0) L 02/25/21 13:55 02/25/21 Platelet Count 88 10^3/uL (130-400) L 02/25/21 13:55 02/25/21 Complete Metabolic Panel: No Data to Display Liver Function Panel: No Data to Display Coagulation Panel: No Data to Display Cardiac Panel: No Data to Display Arterial Blood Gas: No Data to Display Venous Blood Gas: No Data to Display Pancreas Panel: No Data to Display Thyroid Panel: No Data to Display Infectious Disease: Coronavirus (COVID-19)(PCR) Negative (Negative) 03/04/21 09:50 03/04/21 Blood Cultures: No Data to Display Toxicology Panel: No Data to Display Imaging and Studies Imaging and Studies Study information below may be from another EMR and interpreted by another provider. Please see original notes in EMR for more complete details. EKG Summary: Conclusion Sinus rhythm...normal P axis Left bundle branch block. ST elevation secondary to IVCD, similar to prev 12/31/20 Anesthesia Assessment and Plan Anesthesia History Personal History: No History of Anesthesia Complications and Malignant Hyperthermia Family History: No Family History of Anesthesia Complications Exercise Tolerance Exercise Tolerance: Metabolic Equivalents>4 Pertinent Negatives Pertinent Negatives: No Major Cardiovascular Symptoms or Complaints, No Major Pulmonary Symptoms or Complaints and Other ([place] 2018) Cardiac & Pulmonary Exam Cardiac Exam: Normal S1/S2 Heart Sounds and Heart Murmur Present Pulmonary Exam: Clear Bilateral Breath Sounds Implantable Cardiac Device Does patient have a Pacemaker or an ICD?: No Airway Exam Known Difficult Airway: No Mallampati Class: 2 Mouth Opening: Normal (> 3cm) Thyromental Distance: Greater than 3 cm Neck Range of Motion: Full ROM Neck Circumference: Normal Teeth Condition: Edentulous ASA Classification ASA Score: ASA 3 Emergency Case?: No NPO Status NPO Status: NPO Clears >2 hours, Solids >8 hours Anesthesia Plan Resuscitation Status: Full Code Anesthesia Technique: General Anesthesia Airway Planned: Natural Airway Monitors Used: Standard Monitors
[2021-03-06] MEDS: Lactated Ringers 1,000 ML 80 ML IV (10:07)
--- NOTE | 2021-03-06 10:23 | STOM_PTH ---
PATIENT: Danette Shook LOC: [facility] U#:[id number] AGE/SX: 55/F ROOM: RE03/06/[address]: Ángela Mcgregor MD : 1965 BED: DIS: 03/06/2021 SPEC #: [id number] RECD: 03/06/21 12:56 STATUS: SARA RERossy #: [id number] PINEDA: 03/06/21 10:[address]: Ángela Mcgregor DEPT: Surgical Specimen RECD BY: Anayeli Palacios ENTERED: 03/06/21 12:58 SP TYPE: STOMACH OTHR DR: April Mackenzie, JULI Tissues: 1 - STOMACH BIOPSY 2 - STOMACH BIOPSY 3 - ESOPHAGUS BIOPSY Procedures: GROSS AND MICRO LEVEL 4 Comments: [id number]
--- NOTE | 2021-03-06 12:34 | W.ANESPOSTOP ---
Postoperative Evaluation Date, Time and Location Date Performed: 03/06/21 Time Performed: 12:34 Patient Location: Day Surgery Unit Vital Signs Most Recent Imported Vital Signs: Most Recent Vital Signs Temp Pulse Resp BP Pulse Ox 36.4 C L 69 16 95/54 L 99 03/06/21 11:35 03/06/21 11:35 03/06/21 11:35 03/06/21 11:35 03/06/21 11:35 Pain Score Most Recent Pain Score: Most Recent Pain Score Pain Level 0 03/06/21 11:35 Assessment Mental Status: Awake (Alert & Oriented to Patient Baseline) Airway and Respiratory Function: Patent airway with normal (patient baseline) respiratory exam Cardiovascular Function: Hemodynamically Stable Hydration Status: Adequately Hydrated Nausea & Vomiting: No Nausea or Vomiting Pain: Pt. Denies Any Pain Peripheral Nerve Block: Patient did not receive a nerve block
== END 2021-03-06 12:15 | disposition home or self-care (01) ==
LOC: SUR 08:40
PROVIDERS: PCP Nurse Practitioner Gerontology; Visit Provider Surgery
PROC: 0DJ68ZZ Inspection of Stomach, Via Natural or Artificial Opening Endoscopic (ICD-10-PCS; CPT 43235; principal; 2021-03-06 10:00)
DX: R13.10 Dysphagia, unspecified (principal); K31.7 Polyp of stomach and duodenum; K31.89 Other diseases of stomach and duodenum; K29.70 Gastritis, unspecified, without bleeding; K20.90 Esophagitis, unspecified without bleeding
CPT/HCPCS: 43239; 88305; J2250

== ENCOUNTER 2021-03-26 19:06 | Outpatient (REF) | payer MEDICARE, MEDICAID, SELFPAY ==
[2021-03-26 17:48] LABS: Abs Immature Grans 0.01 10^3/uL (0.0-0.06); Absolute Basophil Count 0.05 10^3/uL (0.0-0.2); Absolute Eosinophil Count 0.09 10^3/uL (0.0-0.7); Absolute Lymphocyte Count 3.14 10^3/uL (1.2-3.4); Absolute Monocyte Count 0.64 10^3/uL (0.1-0.8); Absolute Neutrophil Count 2.49 10^3/uL (1.2-6.7); Basophils % 0.8; Eosinophils % 1.4; HCT 35.4 % (36.0-46.0); HGB 11.4 g/dL (11.2-15.7); Immature Grans % 0.2; Lymphocytes % 48.9; MCH 32.5 pg (27.0-33.0); MCHC 32.2 % (32.0-36.0); MCV 100.9 fL (80-95); MPV 12.4 fL (8.0-11.0); Neutrophils % 38.7; Nucleated RBC 0 %; RBC 3.51 10^6/uL (3.93-5.22); RDW 13.8 % (11.7-14.6); RDW-SD 50.6 fL; WBC 6.42 10^3/uL (4.4-10.8)
[2021-03-26 17:59] LABS: ESR 15 mm/hr (0-30)
[2021-03-26 18:14] LABS: ALT 37 U/L (14-59); AST 54 U/L (15-37); Albumin 3.2 g/dL (3.4-5.0); Alkaline Phosphatase 84 U/L (46-116); Anion Gap 5.3 mmol/L (3-11); BUN 23 mg/dL (7-18); Bilirubin, Total 0.6 mg/dL (0.2-1.0); C-Reactive Protein 0.15 mg/dL (0.0-0.3); CO2 33.7 mmol/L (21.0-32.0); CREATININE 1.1 mg/dL (0.55-1.02); Calcium 8.7 mg/dL (8.5-10.1); Chloride 103 mmol/L (98-107); Estimated GFR 51.57 (mL/min/1.73m2); Glucose 95 mg/dL (74-106); Magnesium 2.5 mg/dL (1.8-2.4); Potassium 3.6 mmol/L (3.5-5.1); Sodium 142 mmol/L (136-145); TSH (W/Ref FT4) 0.06 uIU/mL (0.36-3.74); Total Protein 7.1 g/dL (6.4-8.2)
[2021-03-26 18:15] LABS: Diff Comment PLT Morph Reviewed; Platelet Count 66 10^3/uL (130-400)
[2021-03-26 18:16] LABS: Macrocytosis 1+
[2021-03-26 18:30] LABS: FREE T4 1.35 ng/dL (0.76-1.46)
[2021-03-27 09:27] LABS: VALPROIC ACID 74.7 ug/mL
[2021-03-28 17:29] LABS: C-Peptide 3.4 ng/mL (1.1 - 4.4)
== END 2021-03-26 19:07 | disposition home or self-care (01) ==
LOC: LBN 19:06
PROVIDERS: PCP Nurse Practitioner Gerontology; Visit Provider Internal Medicine
DX: F31.5 Bipolar disorder, current episode depressed, severe, with psychotic features (principal); E11.9 Type 2 diabetes mellitus without complications; D69.6 Thrombocytopenia, unspecified; R79.89 Other specified abnormal findings of blood chemistry; J18.9 Pneumonia, unspecified organism; G30.0 Alzheimer's disease with early onset; R13.12 Dysphagia, oropharyngeal phase; F60.1 Schizoid personality disorder
CPT/HCPCS: 80053; 85652; 80164; 83735; 84439; 84443; 84681; 85025; 86140

== ENCOUNTER 2021-04-03 16:03 | Outpatient (REF) | payer MEDICARE, MEDICAID, SELFPAY ==
[2021-04-03 11:54] LABS: Abs Immature Grans 0.03 10^3/uL (0.0-0.06); Absolute Basophil Count 0.02 10^3/uL (0.0-0.2); Absolute Lymphocyte Count 1.86 10^3/uL (1.2-3.4); Absolute Monocyte Count 0.67 10^3/uL (0.1-0.8); Absolute Neutrophil Count 3.34 10^3/uL (1.2-6.7); Basophils % 0.3; HCT 33.7 % (36.0-46.0); HGB 11.2 g/dL (11.2-15.7); Immature Grans % 0.5; Lymphocytes % 31.4; MCH 32.7 pg (27.0-33.0); MCHC 33.2 % (32.0-36.0); MCV 98.3 fL (80-95); MPV 11.5 fL (8.0-11.0); Monocytes % 11.3; Neutrophils % 56.5; Nucleated RBC 0 %; Platelet Count 106 10^3/uL (130-400); RBC 3.43 10^6/uL (3.93-5.22); RDW 13.4 % (11.7-14.6); RDW-SD 48.5 fL; WBC 5.92 10^3/uL (4.4-10.8)
[2021-04-03 11:58] LABS: Anion Gap 7.2 mmol/L (3-11); BUN 30 mg/dL (7-18); CO2 34.8 mmol/L (21.0-32.0); CREATININE 1.2 mg/dL (0.55-1.02); Calcium 8.7 mg/dL (8.5-10.1); Chloride 101 mmol/L (98-107); Estimated GFR 46.64 (mL/min/1.73m2); Glucose 153 mg/dL (74-106); Potassium 3.1 mmol/L (3.5-5.1); Sodium 143 mmol/L (136-145)
== END 2021-04-03 16:04 | disposition home or self-care (01) ==
LOC: LBN 16:03
PROVIDERS: PCP Nurse Practitioner Gerontology; Visit Provider Nurse Practitioner Gerontology
DX: R53.1 Weakness (principal); D69.6 Thrombocytopenia, unspecified
CPT/HCPCS: 80048; 85025

== ENCOUNTER 2021-04-30 16:52 | Outpatient (REF) | payer MEDICARE, MEDICAID, SELFPAY ==
[2021-04-30 17:59] LABS: Abs Immature Grans 0.12 10^3/uL (0.0-0.06); Absolute Basophil Count 0.05 10^3/uL (0.0-0.2); Absolute Lymphocyte Count 3.04 10^3/uL (1.2-3.4); Absolute Monocyte Count 0.83 10^3/uL (0.1-0.8); Basophils % 0.5; HCT 32.2 % (36.0-46.0); HGB 10.3 g/dL (11.2-15.7); Immature Grans % 1.3; Lymphocytes % 32.5; MCH 32.4 pg (27.0-33.0); MCV 101.3 fL (80-95); MPV 10.5 fL (8.0-11.0); Monocytes % 8.9; Neutrophils % 56.8; Nucleated RBC 0 %; Platelet Count 228 10^3/uL (130-400); RBC 3.18 10^6/uL (3.93-5.22); RDW 13.6 % (11.7-14.6); RDW-SD 49.9 fL; WBC 9.34 10^3/uL (4.4-10.8)
[2021-04-30 18:08] LABS: Anion Gap 4.7 mmol/L (3-11); BUN 14 mg/dL (7-18); CO2 36.3 mmol/L (21.0-32.0); CREATININE 0.8 mg/dL (0.55-1.02); Calcium 8.8 mg/dL (8.5-10.1); Chloride 103 mmol/L (98-107); Glucose 120 mg/dL (74-106); Potassium 3.7 mmol/L (3.5-5.1); Sodium 144 mmol/L (136-145)
[2021-04-30 18:14] LABS: VALPROIC ACID 68.1 ug/mL
== END 2021-04-30 16:53 | disposition home or self-care (01) ==
LOC: LBN 16:52
PROVIDERS: PCP Nurse Practitioner Gerontology; Visit Provider Nurse Practitioner Gerontology
DX: D69.6 Thrombocytopenia, unspecified (principal)
CPT/HCPCS: 80048; 80164; 85025

== ENCOUNTER 2021-05-03 10:09 | Outpatient (CLI) | payer MEDICARE, MEDICAID, SELFPAY ==
--- NOTE | 2021-05-03 10:00 | RT.EKG_ITS ---
APPROVED REPORT Exam: Resting ECG Reason for Exam: LBBB Patient Location: O HR:83 bpm ECG Measurements Heart Rate 83 AXIS WA 133 P 0 QRSd 158 QRS -32 QT 450 T 134 QTc 529 Conclusion Sinus rhythm...normal P axis, V-rate 50- 99 Left bundle branch block...QRSd>120, broad/notched R
== END 2021-05-03 10:10 | disposition home or self-care (01) ==
LOC: DI.CARD 10:10
PROVIDERS: PCP Nurse Practitioner Gerontology; Visit Provider Internal Medicine Cardiovascular Disease
DX: I44.7 Left bundle-branch block, unspecified (principal); R94.31 Abnormal electrocardiogram [ECG] [EKG]
CPT/HCPCS: 93010

== ENCOUNTER → 2021-05-03 10:57 | Outpatient (BNVA) | payer MEDICARE, MEDICAID, SELFPAY | PROVIDERS: PCP Nurse Practitioner Gerontology; Referring Provider Nurse Practitioner Gerontology; Visit Provider Internal Medicine Cardiovascular Disease | DX: F25.0 Schizoaffective disorder, bipolar type (principal); J44.9 Chronic obstructive pulmonary disease, unspecified; I35.0 Nonrheumatic aortic (valve) stenosis; I44.7 Left bundle-branch block, unspecified | CPT/HCPCS: 93005; 99203; 99214 ==

== ENCOUNTER 2021-05-07 14:18 | Outpatient (REF) | payer MEDICARE, MEDICAID, SELFPAY ==
[2021-05-07 16:25] LABS: Magnesium 1.7 mg/dL (1.8-2.4); TSH (W/Ref FT4) 0.45 uIU/mL (0.36-3.74)
[2021-05-07 16:26] LABS: Iron 75 ug/dL (50-170)
[2021-05-09 05:46] LABS: Vitamin D 25 Total 57.5 ng/mL (30-100)
== END 2021-05-07 14:19 | disposition home or self-care (01) ==
LOC: LBN 14:18
PROVIDERS: PCP Nurse Practitioner Gerontology; Visit Provider Nurse Practitioner Gerontology
DX: E11.40 Type 2 diabetes mellitus with diabetic neuropathy, unspecified (principal); F31.5 Bipolar disorder, current episode depressed, severe, with psychotic features; I51.89 Other ill-defined heart diseases
CPT/HCPCS: 82306; 83540; 83735; 84443

== ENCOUNTER 2021-05-22 01:30 | Outpatient (CLI) | payer MEDICARE, MEDICAID, SELFPAY ==
--- NOTE | 2021-05-22 | DI.RAD_ITS ---
Exam(s) RF MODIFIED SPEECH BA SWALLOW TECHNIQUE: Modified barium swallow was performed in conjunction with speech pathology. CONTRAST MATERIAL: Oral barium Oral water soluble contrast was administered. COMPARISON: No exams were available for comparison FINDINGS: Fluoroscopy was provided for modified barium swallow study performed our department in conjunction wi the speech therapist. See her separate report for more detail. There was aspiration evident on this study. IMPRESSION: Aspiration evident RADIATION DOSE DELIVERED: janes Gomez=7.1 mGy
--- NOTE | 2021-05-22 14:24 | ST.MBS_ITS ---
Date of Service Date of service: 05/22/21 Time of Service: 14:24 Modified Barium Swallow Study Findings: Videofluoroscopic Swallowing Evaluation (VFSE) / Modified Barium Swallow Study (MBSS) Speech Language Pathology Report HPI: Patient is a 55 year old female referred for VFSE/MBSS from Aranza Mackenzie NP given concern for dysphagia, recent hx weight loss. Patient had previously been recommended for VFSE/MBSS by treating SLICING MACHINE OPERATOR at the [facility] in 2020 to r/o presence of 'dysphagia vs malingering', however this did not take place. Medical History? Acute kidney injury Alcoholism in remission Auditory hallucinations Per [facility] CROWN ASSEMBLY MACHINE SET UP MECHANIC: her baseline she has auditory hallucinations hears Satan, goes int o episodes of marjan, history of being hypersexual, history of throwing items, pt. isn't allowed to have items in her room when she is manic.Bipolar 1 disorder Community acquired pneumonia COPD (chronic obstructive pulmonary disease) Dehydration Diabetic neuropathy DVT prophylaxis Electrolyte abnormality Extended spectrum beta lactamase (ESBL) resistance Heart failure Heart murmur History of alcohol abuse Hyperthyroidism Myocardial infarction 2017 per CROWN ASSEMBLY MACHINE SET UP MECHANIC at [facility]- has not seen cardsOther emphysema Other secondary parkinsonism Pancreatitis Partial intestinal obstruction Protein-calorie malnutrition, mild Pulmonary emphysema Rib pain on right side Schizoid personality disorder Subdural hematoma small right September 2018 2/2 mechanical fallTobacco dependence Surgical History? H/O abdominal surgery History of esophagogastroduodenoscopy (EGD) (~02/2021) S/P thoracotomy Social History? Smoking/Tobacco Use Status:? Current every day Tobacco Type: cigarettes Smoking packs per day: 0.5 Smoking cigarettes per day: 10.0 Tobacco: How many years used:? 36 Smoking risk assessment performed?:? Yes Alcohol Intake:? former Drug use:? Current Sobriety Substance use type:? does not use Details:? Nicotrol inhalers [facility] current occupation:? Disabled. [facility] Seatbelt use:? always Do you feel safe at home:? Yes Do you feel safe in your relationship?:? Yes Additional Social history:? Resident @ [facility] [employer] Previous Imaging: No previous VFSE/MBSS available for comparison XR CHEST 2V PA ? LATERAL (01/17/21) IMPRESSION: No acute abnormality.? SUBJECTIVE: Patient reports sometimes she feels like vomiting with solid foods, is afraid she is going to choke. Chauncey upon arrival; also accompanied by Aranza Mackenzie NP today. Patient seated in Hausted Chair for study today; able to follow most single-step verbal directions and/or with visual/auditory model(s), with the exception of cued cough or throat clear when prompted during study (noted to be weak informally; ?difficulties with phonation upon command with cough/TC) during study, able to demonstrate (likely reflexive) cough 5-10 minutes once study had ended, which appeared productive; cannot confirm objectively. IMPRESSIONS: Swallow safety is somewhat impaired in context of swallow onset delay (preserved with use of outlined risk management techniques); swallow efficiency is impaired. Patient demonstrates mild-moderate chronic oropharyngeal dysphagia; physiologic deficits as outlined below result in deep penetration during swallow onset, mild vallecular residue + trace pyriform sinus/base of tongue/aryepiglottic fold residue, cleared only intermittently with secondary volitional swallow; although no aspiration was observed during study, given tendency for patient to either verbalize and/or become distracted during po intake, aspiration risk remains - particularly in setting of increased rate/volume/use of traditional straw propulsion; suspect dysphagia presentation due to combination of tardive dys kinesia, effect(s) of fluctuations in respiratory dysfunction (ie COPD, AVANI, CHF), hx metabolic encephalopathy, and potentially effects from current medication regimen. Patient appears to be at moderate risk for potential aspiration PNA and/or pulmonary compromise and low-moderate risk for malnutrition, low-moderate risk for dehydration without use of outlined risk management strategies. Diet modification is indicated; non-oral nutrition is not indicated. Swallow prognosis is good-fair, given age (+), social support(s) (+), psychiatric history (-), fluctuations in respiratory dysfunction (-), and pending patient/caregiver training in risk management as outlined, including use of trialed compensatory strategies as outlined. Patient appears to be a fair candidate for behavioral swallow rehabilitation as needed. Specialist referrals: N/A Ancillary tests: N/A Diet texture recommendation: IDDSI Levels 6-Soft & Bite-Sized Solids; Transitional Solids per patient preference 0-Thin Liquids Please see further details at www.iddsi.org Diet texture modification is per patient's preference; please adjust diet textures at patient's discretion & collaboration with care team. Risk Management: Behavioral reflux precautions, including upright position during + 90 mins after meals. Small bites, approx [id number] Small sips, approx 10 mL Encourage avoidance of traditional straws; may consider trial of following instead: - SafeStraw? for thin liquids, which limits volume to 6.2 mL - Either 5 mL or 10mL Provale Cup Alternate solids/liquids as able Recommend oral medications administered in pureed/pudding texture vs thin liquid via straw Control risk factors for aspiration pneumonia via (a) thorough oral hygiene & (b) maintaining physical mobility as tolerated PLAN: Therapy: Recommend subsequent outpatient session PRN with SLICING MACHINE OPERATOR to review results of today's exam and develop treatment plan as appropriate. Treating SLICING MACHINE OPERATOR may consider the following: - Additional considerations for cough strengthening program with RMST pending patient participation - Patient/caregiver training in environmental factors which may affect patient's response to oropharyngeal bolus management - Review of risk management techniques, including adaptive drinking device(s), ie SafeStraw?, Provale Cup Goal: TBD pending patient/caregiver interview Follow-up exam: N/A Thank you for allowing me to take part in this patient's care. Please feel free to contact me with any questions/concerns. Kelsi Cabrales MA [facility]-SLICING MACHINE OPERATOR Speech Language Pathologist [phone] OBJECTIVE: Videofluoroscopic Swallow Evaluation (VFSE/MBSS) was conducted in the lateral and [id number] projections by Speech-Language Pathologist, in collaboration with Radiologist, to evaluate oropharyngeal swallow function. Anatomic view under fluoroscopy: WFL PO Barium Contrast Trials Oral barium water-soluble contrast was administered as follows: IDDSI Level 0 Varibar thin liquid (40% w/v) IDDSI Level 2 Varibar nectar thick/mildly thick liquid (40% w/v) IDDSI Level 3 Varibar thin honey/liquidised/moderately-thick (40% w/v) IDDSI Level 4 Varibar pudding/pureed/extremely thick (40% w/v) IDDSI Level 7 Regular Solid: 1/2 perez cracker coated in 3 mL Varibar pudding; 13 mm barium tablet PHYSIOLOGIC FINDINGS (1) Oral Impairment 1 Lip Closure [x] 1-Interlabial escape; no progression to anterior lip 2 Tongue Control [x] 1- Escape to lateral buccal cavity/floor of mouth Lingual coordination: At rest, noted consistent lingual pumping / fasciculation at [place], outside of po intake 3 Bolus Preparation/Mastication [x] 1- Slowed/prolonged chewing/mashing with complete recollection 4 Bolus Transport/Lingual Motion [x] 2- Slowed tongue motion; 2 or less AP movements 5 Oral residue [x] 2- Residue collection on oral structures Location [x] palate [x] tongue [x] lateral sulci 6 Initiation of pharyngeal swallow [x] 3- Bolus head in pyriform sinus Swallow onset delay is heightened with use of straw, additional volume, and increase in rate of intake. Vallecular aggregation of solid bolus also observed; considered WNL. Pharyngeal Impairment 7 Velar Elevation [x] 0- No bolus between soft palate and pharyngeal wall 8 Laryngeal Elevation [x] 1- Partial superior movement of thyroid cartilage with partial approximation of arytenoids to epiglottic petiole 9 Anterior Hyoid Excursion [x] 0- Complete anterior movement 10 Epiglottic Movement [x] 0- Complete inversion 11 Laryngeal Vestibule Closure [x] 1- Incomplete; narrow column of air/contrast in laryngeal vestibule Penetration occurs [] prior to [x] during [] after initial swallow onset from [x] current bolus [] pharyngeal stasis Aspiration [x] not observed PAS / Overall 8-Point Penetration-Aspiration Scale (2) [] 1 - No material enters the airway [] 2 - Material enters the airway remains above the vocal folds and is ejected from the airway [] 3 - Material enters the airway remains above the vocal folds and is not ejected from the airway [x] 4 - Material enters the airway, contacts the vocal folds and is ejected from the airway [] 5 - Material enters the airway contacts the vocal folds and is not ejected from the airway [] 6 - Material enters the airway passes below the vocal folds and is ejected into the larynx or out of the airway [] 7 - Material enters the airway passes below the vocal folds and is not ejected from the trachea despite effort [] 8 - Material enters the airway passes below the vocal folds and no effort is made to eject Clinical Indicator(s) of Prandial/Postprandial Aspiration [] N/A [x] (Delayed) Cough [] Throat Clear [x] Wet vocal quality [] Postural change [] Facial Grimace [] Other 12 Pharyngeal Stripping Wave [x] 1- Present; diminished 13 Pharyngeal Contraction [x] DNT; lack of AP view 14 PES/UES Opening [x] 0- Complete distension and complete duration; no obstruction of flow 15 Tongue Base Retraction [x] 1- Trace column of contrast between tongue base and posterior pharyngeal wall 16 Pharyngeal residue [x] 2- Collection of residue within or on pharyngeal structures Location [place] Pharyngeal Residue Severity Rating Scale(3) [x] diffuse; >3 areas [x] Tongue base [x] Valleculae III Mild 5-25% Epiglottic ligament visible [x] Pyriform sinuses II Trace 1-5% Trace coating [x] Aryepiglottic folds Esophageal Impairment 17 Esophageal Clearance in Upright Position [x] 0-Complete clearance; esophageal coating Notes This study was performed for interpretation only of the oropharyngeal and pha ryngoesophageal domains of swallowing, and is not intended to diagnose any other radiologic abnormalities or substitute for a formal esophagram study. TRISTEN: (4) Severity LEVEL 5 - Full PO: modified diet and/or independence - Mild-Moderate dysphagia; Distant supervision Trialed Compensatory Strategies & Outcome: Maneuvers Successful/Unsuccessful (+/-) Postures Successful/Unsuccessful (+/-) 3 second Preparatory Set + Chin Tuck Posture + Cough Posterior Head tilt N/A Reflexive absent during study; delayed cough observed after study completion Cued N/A - Difficulty following instruction Throat Clear Head Tilt to Reflexive absent during study Left N/A Cued N/A - Difficulty following instruction Right N/A Saliva swallow x1g + Head Turn/Rotation to Supraglottic Swallow N/A Left N/A Super-supraglottic Swallow N/A Right N/A Bolus Modifications Successful/Unsuccessful (+/-) Delivery/Alternating Consistencies N/A Delivery/Via Straw Successful only if less than 10mL + / If more than 10mL, increases risks of aspiration Reduced Volume + Most successful Reduced Rate of Intake + Increased Viscosityg + Other: Coding CPT Codes MOTION FLUOROSCOPY/SWALLOW - [id number] ([id number]) 1: Robert Ann al. ?MBS measurement tool for swallow impairment--MBSImp: establishing a standard.? Dysphagia vol. 23,4 (2008): 392-405. doi:10.1007/e36249-426-2378-1 2: (Sue et al, 1996) 3: (Alec et al, 2015) 4: The Dysphagia Outcome and Severity Scale is a 7-point scale developed to systematically rate the functional severity of dysphagia based on objective assessment and make recommendations for diet level, independence level, and type of nutrition.
[2021-05-22] MEDS: Barium Sulfate 81% w/w for Oral Suspension 148 GM BTL PO (15:57)
[2021-05-22] MEDS: Barium Sulfate 700 MG TAB PO (15:58)
[2021-05-22] MEDS: Barium Sulfate 40% W/V 240 ML BTL 10 ML PO (15:59)
[2021-05-22] MEDS: Barium Sulfate Oral Paste 40% W/V 230 ML TUBE 20 ML PO (15:59)
[2021-05-22] MEDS: Barium Sulfate 40% W/V 1500 CPS 250 ML BTL 10 ML PO (16:01)
== END 2021-05-22 01:50 ==
PROVIDERS: PCP Nurse Practitioner Gerontology; Visit Provider Nurse Practitioner Gerontology
DX: R63.4 Abnormal weight loss (principal); R91.8 Other nonspecific abnormal finding of lung field; R13.10 Dysphagia, unspecified
CPT/HCPCS: 92526; 92611; 74221

== ENCOUNTER 2021-05-28 14:42 | Outpatient (REF) | payer MEDICARE, MEDICAID, SELFPAY ==
[2021-05-28 15:05] LABS: Abs Immature Grans 0.03 10^3/uL (0.0-0.06); Absolute Basophil Count 0.01 10^3/uL (0.0-0.2); Absolute Lymphocyte Count 2.82 10^3/uL (1.2-3.4); Absolute Monocyte Count 0.58 10^3/uL (0.1-0.8); Absolute Neutrophil Count 3.52 10^3/uL (1.2-6.7); Basophils % 0.1; HCT 34.2 % (36.0-46.0); HGB 10.8 g/dL (11.2-15.7); Immature Grans % 0.4; Lymphocytes % 40.5; MCH 33.2 pg (27.0-33.0); MCHC 31.6 % (32.0-36.0); MCV 105.2 fL (80-95); MPV 12.3 fL (8.0-11.0); Monocytes % 8.3; Neutrophils % 50.7; Nucleated RBC 0 %; Platelet Count 169 10^3/uL (130-400); RBC 3.25 10^6/uL (3.93-5.22); RDW 14.2 % (11.7-14.6); RDW-SD 55.4 fL; WBC 6.96 10^3/uL (4.4-10.8)
[2021-05-28 15:30] LABS: Anion Gap 7.8 mmol/L (3-11); BUN 20 mg/dL (7-18); CO2 30.2 mmol/L (21.0-32.0); Calcium 8.2 mg/dL (8.5-10.1); Chloride 101 mmol/L (98-107); Estimated GFR 57.56 (mL/min/1.73m2); Glucose 324 mg/dL (74-106); Potassium 3.8 mmol/L (3.5-5.1); Sodium 139 mmol/L (136-145)
[2021-05-28 15:59] LABS: VALPROIC ACID 74.4 ug/mL
== END 2021-05-28 14:43 | disposition home or self-care (01) ==
LOC: LBN 14:42
PROVIDERS: PCP Nurse Practitioner Gerontology; Visit Provider Nurse Practitioner Gerontology
DX: F60.1 Schizoid personality disorder; F41.1 Generalized anxiety disorder; Z51.81 Encounter for therapeutic drug level monitoring; Z79.899 Other long term (current) drug therapy
CPT/HCPCS: 80048; 80164; 85025

== ENCOUNTER 2021-06-06 01:50 | Outpatient (CLI) | payer MEDICARE, MEDICAID, SELFPAY ==
--- NOTE | 2021-06-06 14:34 | DI.US_ITS ---
APPROVED REPORT EXAM: Comprehensive 2D, Doppler, and color-flow Echocardiogram Patient Location: Out-Patient Programming Specialist: Zaida Hassan RDCS (AE) Indications: SOB, LBBB Other Information Study Quality: Fair. Technically limited study due to body habitus, inability to position patient. Conclusion Normal left ventricular wall thickness and chamber size. Estimated ejection fraction is 55%. Septal motion is consistent with LBBB Normal right ventricular size and systolic function Both atria are normal in size Aortic valve is calcified with mild aortic stenosis. Peak gradient is 31, mean 19 mmHg. Calculated aortic valve area is 1.09 cm??. There is trace aortic regurgitation Mitral annular calcification with moderate mitral regurgitation Normal tricuspid valve with mild regurgitation. Estimated right ventricular systolic pressure is 30 mmHg Wall motion Left Ventricle The left ventricle is normal size. The left ventricular systolic function is normal. The left ventric ular ejection fraction is within the normal range. There is normal left ventricular wall thickness. P aradoxical septal motion consistent with conduction abnormality. There is no ventricular septal defec t visualized. LVEF is 55%. Right Ventricle Right ventricle is grossly normal in size. Right ventricular systolic function is grossly normal. Atria The left atrium size is normal. The right atrium size is normal. Aortic Valve Aortic valve is calcified. Mild aortic stenosis. Peak aortic valve gradient is 30.6mmHg. Highest mean aortic valve gradient is 18.6mmHg. Calculated BEATRIZ by the continuity equation is 1.09cm2. Trace aorti c regurgitation. Mitral Valve Mild mitral annular calcification. No evidence of mitral valve stenosis. Moderate mitral regurgitatio n. Tricuspid Valve The tricuspid valve is normal in structure. There is no tricuspid valve stenosis. Mild tricuspid regu rgitation. Pulmonic Valve The pulmonary valve is normal in structure. There is no pulmonic valvular stenosis. Trace pulmonic re gurgitation. Great Vessels The aortic root is normal in size. Ascending aorta is not well visualized. Aortic arch is not well vi sualized. IVC is normal in size and collapses >50% with inspiration. Pericardium There is no pericardial effusion. 2D Dimensions IVSD d PLAX 0.99 cm F: 0.6-1.0 LV Vol A2C d MOD 152.1 mL LVPW d PLAX 0.96 cm F: 0.6 - 1.0 LV Vol A4C d MOD 130.0 mL LVID d PLAX 4.39 cm F: 3.8 - 5.2 LA vol/ BSA A2C s A-L 38.2 mL/m2 LVDs 3.25 cm F: 2.2 - 3.5 LA vol/ BSA A4C s A-L 36.0 mL/m2 Ao Root d 2.73 cm F: 2.7 - 3.3 LA Vol/ BSA Biplane s A-L 37.7 mL/m2 RA Area A4C 12.31 cm2 LA Area A4C s MOD 18.95 cm2 RA Vol/ BSA A4C s A-L 18.3 mL/m2 LA Area A2C s MOD 19.18 cm2 LV EF Teichholz 50.2 % LV EF A4C MOD 45.3 % LVEF (Muniz's) 46.27 % F: 54 - 74 LV EF A2C MOD 46.5 % LV Volume 113.99 mL F: 46 - 106 LV EF Biplane MOD 46.3 % LV Volume Index 69.08 mL/m2 F: 29 - 61 SV 65.69 mL LV Vol Biplane MOD 142.0 mL SV Index 39.81 mL/m2 FS 25.30 % M-Mode TAPSE 1.38 cm (M/F) >1.7 LV Diastology MV E' medial 0.040 (>0.07 m/s) E/A Ratio 0.9 LV E/e MED 22.60 (<14) MV E Vmax 0.90 (0.4-1.3 m/s) MV E' lateral 0.084 (>0.1 m/s) MV A Vmax 1.00 (0.4-1.3 m/s) LV E/e LAT 10.75 (<14) MV E/A Ratio 0.87 MV E/E' medial 22.60 MV E/E' lateral 10.75 Aortic Valve LVOT Area 2.96 cm2 AoV Area Vmax 1.09 cm2 LVOT Vmax 1.02 m/s AoV Area/ BSA (Vmax) 0.66 cm2/m2 LVOT Mean Cristi. 0.74 m/s BEATRIZ Mean Cristi. 1.05 cm2 LVOT Peak Grad 4.1 mmHg BEATRIZ Mean Cristi. Index 0.64 cm2/m2 LVOT Mean Grad 2.4 mmHg LVOT VTI 0.214 m LVOT Diam s 1.90 cm AoV Vmax 2.77 m/s Velocity Ratio 0.36 AoV Mean Cristi. 2.07 m/s AoV Peak Grad 30.6 mmHg LVOT SV 63.27 mL AoV Mean Grad 18.6 mmHg AoV VTI 0.647 m AoV Area VTI 0.98 cm2 AoV Area/ BSA (VTI) 0.59 cm/m2 Mitral Valve MV DT 185 (160-240 msec) MR Vmax 4.40 m/s MV PHT 54 msec MR VTI 1.682 m MV Area PHT 4.10 cm2 MR Peak Grad 77.4 mmHg MV VTI 0.344 m MR Mean Grad 50.3 mmHg MV VTI Annulus 0.310 m MR PISA Radius 0.51 cm MV Area VTI 1.68 (4.0-6.0 cm2) MR EROA 0.13 cm2 MR Aliasing Velocity 0.35 m/s MR PISA 1.64 cm2 Pulmonary Valve PV Vmax 1.24 (0.5-1.5 m/s) RVOT Peak Gr. 1.62 mmHg PV Peak Grad 6.1 mmHg RVOT Mean Gr. 0.95 mmHg PV Mean Grad 3.5 mmHg RVOT VTI 0.118 m PV VTI 0.255 m RVOT Vmax 0.64 m/s Tricuspid Valve TR Peak Grad 27.1 mmHg TR Vmax 2.60 m/s RA Pressure 3.00 mmHg RVSP (TR) 30.1 mmHg
== END 2021-06-06 02:10 ==
PROVIDERS: PCP Nurse Practitioner Gerontology; Visit Provider Internal Medicine Cardiovascular Disease
DX: I44.7 Left bundle-branch block, unspecified (principal); R06.02 Shortness of breath
CPT/HCPCS: 93306

== ENCOUNTER 2021-06-25 15:50 | Outpatient (REF) | payer MEDICARE, MEDICAID, SELFPAY ==
[2021-06-25 20:41] LABS: Abs Immature Grans 0.02 10^3/uL (0.0-0.06); Absolute Basophil Count 0.04 10^3/uL (0.0-0.2); Absolute Lymphocyte Count 3.95 10^3/uL (1.2-3.4); Absolute Monocyte Count 0.67 10^3/uL (0.1-0.8); Absolute Neutrophil Count 3.82 10^3/uL (1.2-6.7); Basophils % 0.5; HCT 36.6 % (36.0-46.0); HGB 11.6 g/dL (11.2-15.7); Immature Grans % 0.2; Lymphocytes % 46.5; MCH 32.7 pg (27.0-33.0); MCHC 31.7 % (32.0-36.0); MCV 103.1 fL (80-95); MPV 12.7 fL (8.0-11.0); Monocytes % 7.9; Neutrophils % 44.9; Platelet Count 121 10^3/uL (130-400); RBC 3.55 10^6/uL (3.93-5.22); RDW 12.4 % (11.7-14.6); RDW-SD 47.5 fL
[2021-06-25 20:54] LABS: ALT 14 U/L (14-59); AST 12 U/L (15-37); Albumin 3.3 g/dL (3.4-5.0); Alkaline Phosphatase 108 U/L (46-116); Anion Gap 5.3 mmol/L (3-11); BUN 32 mg/dL (7-18); Bilirubin, Total 0.2 mg/dL (0.2-1.0); CO2 36.7 mmol/L (21.0-32.0); Chloride 100 mmol/L (98-107); Estimated GFR 57.56 (mL/min/1.73m2); Glucose 171 mg/dL (74-106); Potassium 3.7 mmol/L (3.5-5.1); Sodium 142 mmol/L (136-145); Total Protein 7.6 g/dL (6.4-8.2)
[2021-06-25 20:56] LABS: VALPROIC ACID 75.1 ug/mL
[2021-06-25 21:06] LABS: Hemoglobin A1C 8.1 % (<5.7)
== END 2021-06-25 15:51 | disposition home or self-care (01) ==
LOC: LBN 15:50
PROVIDERS: PCP Nurse Practitioner Gerontology; Visit Provider Nurse Practitioner Gerontology
DX: E11.40 Type 2 diabetes mellitus with diabetic neuropathy, unspecified (principal); R41.89 Other symptoms and signs involving cognitive functions and awareness; F60.1 Schizoid personality disorder; F31.5 Bipolar disorder, current episode depressed, severe, with psychotic features; Z51.81 Encounter for therapeutic drug level monitoring; Z79.899 Other long term (current) drug therapy
CPT/HCPCS: 80053; 80164; 83036; 85025

== ENCOUNTER 2021-07-23 18:04 | Outpatient (REF) | payer MEDICARE, MEDICAID, SELFPAY ==
[2021-07-23 18:16] LABS: Abs Immature Grans 0.02 10^3/uL (0.0-0.06); Absolute Basophil Count 0.04 10^3/uL (0.0-0.2); Absolute Lymphocyte Count 3.26 10^3/uL (1.2-3.4); Absolute Monocyte Count 0.73 10^3/uL (0.1-0.8); Absolute Neutrophil Count 4.45 10^3/uL (1.2-6.7); Basophils % 0.5; HCT 37.7 % (36.0-46.0); HGB 12.2 g/dL (11.2-15.7); Immature Grans % 0.2; Lymphocytes % 38.4; MCH 32.3 pg (27.0-33.0); MCHC 32.4 % (32.0-36.0); MCV 100 fL (80-95); MPV 12.2 fL (8.0-11.0); Monocytes % 8.6; Neutrophils % 52.3; Platelet Count 136 10^3/uL (130-400); RBC 3.78 10^6/uL (3.93-5.22); RDW 12.5 % (11.7-14.6); RDW-SD 46.5 fL
[2021-07-23 18:30] LABS: Anion Gap 7.7 mmol/L (3-11); BUN 28 mg/dL (7-18); CO2 32.3 mmol/L (21.0-32.0); Calcium 8.6 mg/dL (8.5-10.1); Chloride 104 mmol/L (98-107); Estimated GFR 57.56 (mL/min/1.73m2); Glucose 191 mg/dL (74-106); Potassium 3.9 mmol/L (3.5-5.1); Sodium 144 mmol/L (136-145)
[2021-07-23 18:50] LABS: VALPROIC ACID 89.2 ug/mL
== END 2021-07-23 18:05 | disposition home or self-care (01) ==
LOC: LBN 18:04
PROVIDERS: PCP Nurse Practitioner Gerontology; Visit Provider Nurse Practitioner Gerontology
DX: F60.1 Schizoid personality disorder (principal); E11.40 Type 2 diabetes mellitus with diabetic neuropathy, unspecified; G47.33 Obstructive sleep apnea (adult) (pediatric); Z51.81 Encounter for therapeutic drug level monitoring; Z79.899 Other long term (current) drug therapy
CPT/HCPCS: 80048; 80164; 85025

== ENCOUNTER 2021-08-20 17:22 | Outpatient (REF) | payer MEDICARE, MEDICAID, SELFPAY ==
[2021-08-20 18:33] LABS: Abs Immature Grans 0.05 10^3/uL (0.0-0.06); Absolute Basophil Count 0.05 10^3/uL (0.0-0.2); Absolute Eosinophil Count 0.16 10^3/uL (0.0-0.7); Absolute Lymphocyte Count 2.85 10^3/uL (1.2-3.4); Absolute Monocyte Count 0.63 10^3/uL (0.1-0.8); Absolute Neutrophil Count 4.25 10^3/uL (1.2-6.7); Basophils % 0.6; HCT 35.6 % (36.0-46.0); HGB 11.9 g/dL (11.2-15.7); Immature Grans % 0.6; Lymphocytes % 35.7; MCH 32.7 pg (27.0-33.0); MCHC 33.4 % (32.0-36.0); MCV 98 fL (80-95); MPV 11.2 fL (8.0-11.0); Monocytes % 7.9; Neutrophils % 53.2; Platelet Count 185 10^3/uL (130-400); RBC 3.64 10^6/uL (3.93-5.22); RDW 12.7 % (11.7-14.6); RDW-SD 45.5 fL; WBC 7.99 10^3/uL (4.4-10.8)
[2021-08-20 19:12] LABS: Anion Gap 9.1 mmol/L (3-11); BUN 34 mg/dL (7-18); CO2 29.9 mmol/L (21.0-32.0); CREATININE 1.2 mg/dL (0.55-1.02); Calcium 8.5 mg/dL (8.5-10.1); Chloride 101 mmol/L (98-107); Estimated GFR 46.64 (mL/min/1.73m2); Glucose 298 mg/dL (74-106); Potassium 3.8 mmol/L (3.5-5.1); Sodium 140 mmol/L (136-145)
[2021-08-20 19:18] LABS: VALPROIC ACID 52.7 ug/mL
== END 2021-08-20 17:23 | disposition home or self-care (01) ==
LOC: LBN 17:22
PROVIDERS: PCP Nurse Practitioner Gerontology; Visit Provider Nurse Practitioner Gerontology
DX: D72.829 Elevated white blood cell count, unspecified (principal); R41.89 Other symptoms and signs involving cognitive functions and awareness; F60.1 Schizoid personality disorder; F31.5 Bipolar disorder, current episode depressed, severe, with psychotic features; Z51.81 Encounter for therapeutic drug level monitoring; Z79.899 Other long term (current) drug therapy
CPT/HCPCS: 80048; 80164; 85025

== ENCOUNTER 2021-09-23 14:36 | Outpatient (REF) | payer MEDICARE, MEDICAID, SELFPAY ==
[2021-09-23 16:54] LABS: ALT 23 U/L (14-59); AST 16 U/L (15-37); Albumin 3.1 g/dL (3.4-5.0); Alkaline Phosphatase 89 U/L (46-116); Anion Gap 10.8 mmol/L (3-11); BUN 23 mg/dL (7-18); Bilirubin, Total 0.3 mg/dL (0.2-1.0); CO2 31.2 mmol/L (21.0-32.0); CREATININE 1.2 mg/dL (0.55-1.02); Calcium 8.4 mg/dL (8.5-10.1); Chloride 98 mmol/L (98-107); Cholesterol 168 mg/dL (<200); Estimated GFR 46.64 (mL/min/1.73m2); Glucose 386 mg/dL (74-106); HDL Cholesterol 48 mg/dL (40-60); Potassium 4.1 mmol/L (3.5-5.1); Sodium 140 mmol/L (136-145); TSH (W/Ref FT4) 2.77 uIU/mL (0.36-3.74); Total Protein 7.2 g/dL (6.4-8.2); Triglyceride 522 mg/dL (<150)
[2021-09-23 17:07] LABS: Vitamin D 25 Total 40.9 ng/mL (30-100)
[2021-09-23 17:11] LABS: LDL CHOLESTEROL 66 mg/dL (<100)
[2021-09-23 17:15] LABS: Hemoglobin A1C 8.4 % (<5.7)
[2021-09-24 10:42] LABS: Abs Immature Grans 0.07 10^3/uL (0.0-0.06); Absolute Basophil Count 0.05 10^3/uL (0.0-0.2); Absolute Eosinophil Count 0.14 10^3/uL (0.0-0.7); Absolute Lymphocyte Count 2.89 10^3/uL (1.2-3.4); Absolute Monocyte Count 0.58 10^3/uL (0.1-0.8); Absolute Neutrophil Count 3.58 10^3/uL (1.2-6.7); Basophils % 0.7; Eosinophils % 1.9; HCT 33.4 % (36.0-46.0); Lymphocytes % 39.5; MCH 32.5 pg (27.0-33.0); MCHC 32.9 % (32.0-36.0); MCV 99 fL (80-95); MPV 12.2 fL (8.0-11.0); Monocytes % 7.9; Platelet Count 144 10^3/uL (130-400); RBC 3.38 10^6/uL (3.93-5.22); RDW 13.5 % (11.7-14.6); RDW-SD 48.4 fL; WBC 7.31 10^3/uL (4.4-10.8)
== END 2021-09-23 14:37 | disposition home or self-care (01) ==
LOC: LBN 14:36
PROVIDERS: PCP Nurse Practitioner Gerontology; Visit Provider Nurse Practitioner Gerontology
DX: I50.9 Heart failure, unspecified (principal); R68.89 Other general symptoms and signs; D69.6 Thrombocytopenia, unspecified
CPT/HCPCS: 80053; 80061; 82306; 83721; 83036; 84443; 85025

== ENCOUNTER 2021-10-22 19:25 | Outpatient (REF) | payer MEDICARE, MEDICAID, SELFPAY ==
[2021-10-22 21:29] LABS: Abs Immature Grans 0.03 10^3/uL (0.0-0.06); Absolute Basophil Count 0.05 10^3/uL (0.0-0.2); Absolute Eosinophil Count 0.13 10^3/uL (0.0-0.7); Absolute Lymphocyte Count 3.09 10^3/uL (1.2-3.4); Absolute Monocyte Count 0.58 10^3/uL (0.1-0.8); Absolute Neutrophil Count 3.67 10^3/uL (1.2-6.7); Basophils % 0.7; Eosinophils % 1.7; HCT 35.1 % (36.0-46.0); HGB 11.6 g/dL (11.2-15.7); Immature Grans % 0.4; Lymphocytes % 40.9; MCH 32.6 pg (27.0-33.0); MCV 99 fL (80-95); Monocytes % 7.7; Neutrophils % 48.6; Platelet Count 118 10^3/uL (130-400); RBC 3.56 10^6/uL (3.93-5.22); RDW 12.5 % (11.7-14.6); RDW-SD 45.5 fL; WBC 7.55 10^3/uL (4.4-10.8)
[2021-10-22 21:32] LABS: Anion Gap 9.9 mmol/L (3-11); BUN 15 mg/dL (7-18); CO2 30.1 mmol/L (21.0-32.0); CREATININE 0.9 mg/dL (0.55-1.02); Calcium 8.4 mg/dL (8.5-10.1); Chloride 102 mmol/L (98-107); Glucose 247 mg/dL (74-106); Potassium 3.9 mmol/L (3.5-5.1); Sodium 142 mmol/L (136-145)
[2021-10-22 21:38] LABS: VALPROIC ACID 72.3 ug/mL
== END 2021-10-22 19:26 | disposition home or self-care (01) ==
LOC: LBN 19:25
PROVIDERS: PCP Nurse Practitioner Gerontology; Visit Provider Nurse Practitioner Gerontology
DX: R68.89 Other general symptoms and signs (principal); I50.9 Heart failure, unspecified
CPT/HCPCS: 80048; 80164; 85025

== ENCOUNTER → 2021-10-31 11:21 | Outpatient (BNVA) | payer MEDICARE, MEDICAID, SELFPAY | PROVIDERS: PCP Nurse Practitioner Gerontology; Referring Provider Nurse Practitioner Gerontology; Visit Provider Surgery | DX: L72.8 Other follicular cysts of the skin and subcutaneous tissue (principal); L03.312 Cellulitis of back [any part except buttock and flank]; L72.3 Sebaceous cyst | CPT/HCPCS: 11402; 99212 ==

== ENCOUNTER 2021-10-31 12:24 | Outpatient (REF) | payer MEDICARE, MEDICAID, SELFPAY ==
--- NOTE | 2021-10-31 12:15 | SKI_PTH ---
PATIENT: Danette Shook LOC: [facility] U#:[id number] AGE/SX: 56/F ROOM: RE10/31/[address]: Isela Rachel : 1965 BED: DIS: 10/31/2021 SPEC #: [id number] RECD: 10/31/21 13:09 STATUS: SARA RERossy #: [id number] PINEDA: 10/31/21 12:[address]: Isela Rachel DEPT: Surgical Specimen RECD BY: Anayeli Palacios ENTERED: 10/31/21 13:09 SP TYPE: CARL RAMIREZ DR: April Mackenzie, JULI [facility] Tissues: 1 - SKIN BIOPSY(SHAVE/PUNCH) Procedures: GROSS AND MICRO LEVEL 3 Comments: [id number]
== END 2021-10-31 12:25 | disposition home or self-care (01) ==
LOC: LBN 12:24
PROVIDERS: PCP Nurse Practitioner Gerontology; Visit Provider Surgery
DX: L72.3 Sebaceous cyst
CPT/HCPCS: 87070; 87205; 88304; 88305

== ENCOUNTER 2021-11-26 18:00 | Outpatient (REF) | payer MEDICARE, MEDICAID, SELFPAY ==
[2021-11-26 18:15] LABS: Abs Immature Grans 0.03 10^3/uL (0.0-0.06); Absolute Basophil Count 0.02 10^3/uL (0.0-0.2); Absolute Lymphocyte Count 2.99 10^3/uL (1.2-3.4); Absolute Monocyte Count 0.81 10^3/uL (0.1-0.8); Absolute Neutrophil Count 3.98 10^3/uL (1.2-6.7); Basophils % 0.3; HCT 37.9 % (36.0-46.0); HGB 12.1 g/dL (11.2-15.7); Immature Grans % 0.4; Lymphocytes % 38.2; MCH 31.8 pg (27.0-33.0); MCHC 31.9 % (32.0-36.0); MCV 100 fL (80-95); MPV 11.9 fL (8.0-11.0); Monocytes % 10.3; Neutrophils % 50.8; Platelet Count 107 10^3/uL (130-400); RDW 12.7 % (11.7-14.6); RDW-SD 45.6 fL; WBC 7.83 10^3/uL (4.4-10.8)
== END 2021-11-26 18:01 | disposition home or self-care (01) ==
LOC: LBN 18:00
PROVIDERS: PCP Nurse Practitioner Gerontology; Visit Provider Nurse Practitioner Gerontology
DX: E11.40 Type 2 diabetes mellitus with diabetic neuropathy, unspecified (principal); G30.0 Alzheimer's disease with early onset; M62.81 Muscle weakness (generalized); R13.12 Dysphagia, oropharyngeal phase
CPT/HCPCS: 85025

== ENCOUNTER 2021-12-18 18:41 | Outpatient (REF) | payer MEDICARE, MEDICAID, SELFPAY ==
[2021-12-18 18:28] LABS: Hemoglobin A1C 7.9 % (<5.7)
== END 2021-12-18 18:42 | disposition home or self-care (01) ==
LOC: LBN 18:41
PROVIDERS: PCP Nurse Practitioner Gerontology; Visit Provider Nurse Practitioner Gerontology
DX: E08.59 Diabetes mellitus due to underlying condition with other circulatory complications (principal); M62.81 Muscle weakness (generalized)
CPT/HCPCS: 83036

== ENCOUNTER 2021-12-24 15:20 | Outpatient (REF) | payer MEDICARE, MEDICAID, SELFPAY ==
[2021-12-24 16:39] LABS: Abs Immature Grans 0.05 10^3/uL (0.0-0.06); Absolute Basophil Count 0.04 10^3/uL (0.0-0.2); Absolute Eosinophil Count 0.15 10^3/uL (0.0-0.7); Absolute Lymphocyte Count 2.83 10^3/uL (1.2-3.4); Absolute Monocyte Count 0.76 10^3/uL (0.1-0.8); Absolute Neutrophil Count 3.85 10^3/uL (1.2-6.7); Basophils % 0.5; HCT 31.6 % (36.0-46.0); HGB 10.2 g/dL (11.2-15.7); Immature Grans % 0.7; Lymphocytes % 36.8; MCHC 32.3 % (32.0-36.0); MCV 99 fL (80-95); MPV 11.6 fL (8.0-11.0); Monocytes % 9.9; Neutrophils % 50.1; Platelet Count 181 10^3/uL (130-400); RBC 3.19 10^6/uL (3.93-5.22); RDW 14.2 % (11.7-14.6); RDW-SD 51.2 fL; WBC 7.68 10^3/uL (4.4-10.8)
== END 2021-12-24 15:21 | disposition home or self-care (01) ==
LOC: LBN 15:20
PROVIDERS: PCP Nurse Practitioner Gerontology; Visit Provider Nurse Practitioner Gerontology
DX: E08.59 Diabetes mellitus due to underlying condition with other circulatory complications (principal); M62.81 Muscle weakness (generalized); R68.89 Other general symptoms and signs; F31.5 Bipolar disorder, current episode depressed, severe, with psychotic features
CPT/HCPCS: 85025

== ENCOUNTER → 2022-01-15 00:57 | Outpatient (CLI) | payer MEDICARE, MEDICAID, SELFPAY ==
--- NOTE | 2022-01-15 | DI.CT_ITS ---
Exam(s) CT CHEST/ABD/PEL WO EXAM: CT CHEST/ABD/PEL WO CLINICAL HISTORY: 1 CM ROUND HYPODENSE LESION PANCREAS TAIL, FU TECHNIQUE: Imaging Protocol: Axial computed tomography images with coronal and sagittal reformatted images were created and reviewed COMPARISON: CT CT ABDOMEN PELVIS W from 12/31/2020 FINDINGS: CHEST: Tracheobronchial tree: Patent where visualized. Pulmonary parenchyma: No consolidation or dominant measurable mass. No architectural distortion. Mediastinum and Deisy: No dominant adenopathy or fluid collection. The esophagus is unremarkable. Thyroid gland: Unremarkable. Pleura: No effusion or pneumothorax. Heart: The heart is not dilated. Marked coronary artery calcification is present. No pericardial eff usion. Aorta: Thoracic aorta non-dilated. Atherosclerosis is present. Lymph nodes: Within normal limits. Bones:Within normal limits for the patient's age. Soft tissues: Unremarkable. ABDOMEN: Liver: Normal density. No measurable mass. Gallbladder and Biliary Tract: No radiodense calculus or dilation. Pancreas: Normal density, no abnormal calcifications or inflammatory process. There is a stable 0.9 c m cyst in the tail of the pancreas. Spleen: Normal. Adrenals: There is a stable 1 cm hypodense nodule in the left adrenal gland. No follow-up is recomme nded. The right adrenal gland is unremarkable. Kidneys: There is again seen right renal cortical atrophy. There is a stable nonobstructing stone in the left kidney. No masses seen. Abdominal Aorta: Abdominal portion non-dilated. Atherosclerosis is present. Bowel: No obstruction or bowel wall thickening. No evidence of appendicitis. There is a redundant si gmoid colon. There is a large amount of stool throughout the colon. Peritoneal Cavity: No ascites, collection or mesenteric inflammatory response. No free air. Lymph Nodes: Within normal limits. Bones: Within normal limits for the patient's age. Soft Tissues: Unremarkable. PELVIS: Bladder: Symmetric distention, no gross wall thickening. Reproductive Organs: Unremarkable as visualized. Lymph Nodes: Within normal limits. Bones: Within normal limits for the patient's age. IMPRESSION: 1. Stable 9 mm cyst in the tail of the pancreas. Follow-up examination every year x5 years is recomm ended. If it is stable after 5 years, imaging should be every 2 years x2. (Krystal et al., 2017). 2. No acute chest, abdominal or pelvic process. RADIATION DOSE DELIVERED: 1,075.12mGy.cm Total DLP 1,075.12mGy.cm Total DLP DATA REPOSITORY: All CT scans at this facility are submitted to the National Radiology Data Registry (NRDR) Dose Index Registry (DIR) with the [employer] (A[employer]). RADIATION OPTIMIZATION: All CT scans at this facility use at least one of these dose optimization te chniques: automated exposure control; mA and/or kV adjustment per patient size (includes targeted exa ms where dose is matched to clinical indication); or iterative reconstruction.
== END ==
PROVIDERS: PCP Nurse Practitioner Gerontology; Visit Provider Nurse Practitioner Gerontology
DX: K86.2 Cyst of pancreas (principal)
CPT/HCPCS: 71250; 74176

== ENCOUNTER 2022-01-20 21:03 | Outpatient (REF) | payer MEDICARE, MEDICAID, SELFPAY ==
[2022-01-20 21:52] LABS: Abs Immature Grans 0.05 10^3/uL (0.0-0.06); Absolute Basophil Count 0.02 10^3/uL (0.0-0.2); Absolute Eosinophil Count 0.15 10^3/uL (0.0-0.7); Absolute Lymphocyte Count 3.38 10^3/uL (1.2-3.4); Absolute Monocyte Count 0.56 10^3/uL (0.1-0.8); Absolute Neutrophil Count 2.82 10^3/uL (1.2-6.7); Basophils % 0.3; Eosinophils % 2.1; HCT 36.3 % (36.0-46.0); HGB 11.4 g/dL (11.2-15.7); Immature Grans % 0.7; Lymphocytes % 48.4; MCH 32.7 pg (27.0-33.0); MCHC 31.4 % (32.0-36.0); MCV 104 fL (80-95); MPV 12.7 fL (8.0-11.0); Neutrophils % 40.5; Platelet Count 118 10^3/uL (130-400); RBC 3.49 10^6/uL (3.93-5.22); WBC 6.98 10^3/uL (4.4-10.8)
[2022-01-20 22:18] LABS: VALPROIC ACID 54.1 ug/mL
[2022-01-20 22:26] LABS: ALT 16 U/L (14-59); AST 26 U/L (15-37); Albumin 2.9 g/dL (3.4-5.0); Alkaline Phosphatase 80 U/L (46-116); Anion Gap 5.6 mmol/L (3-11); BUN 15 mg/dL (7-18); Bilirubin, Total 0.3 mg/dL (0.2-1.0); CO2 32.4 mmol/L (21.0-32.0); CREATININE 0.9 mg/dL (0.55-1.02); Calcium 8.8 mg/dL (8.5-10.1); Chloride 104 mmol/L (98-107); Estimated GFR 75.03 (mL/min/1.73m2); Glucose 96 mg/dL (74-106); Potassium 3.7 mmol/L (3.5-5.1); Sodium 142 mmol/L (136-145); TSH (W/Ref FT4) 0.16 uIU/mL (0.36-3.74); Total Protein 7.3 g/dL (6.4-8.2)
[2022-01-20 23:36] LABS: FREE T4 1.13 ng/dL (0.76-1.46)
== END 2022-01-20 21:04 | disposition home or self-care (01) ==
LOC: LBN 21:03
PROVIDERS: PCP Nurse Practitioner Gerontology; Visit Provider Nurse Practitioner Gerontology
DX: E03.9 Hypothyroidism, unspecified (principal); F31.5 Bipolar disorder, current episode depressed, severe, with psychotic features; F60.1 Schizoid personality disorder; R68.89 Other general symptoms and signs
CPT/HCPCS: 80053; 80164; 84439; 84443; 85025

== ENCOUNTER 2022-02-13 01:48 | Outpatient (CLI) | payer MEDICARE, MEDICAID, SELFPAY ==
[2022-02-13] MEDS: Albuterol HFA 18 GM 200 PUFF INH IH (14:00)
[2022-02-13] MEDS: Inhaler, Assist Device 1 EACH MC (14:00)
--- NOTE | 2022-02-14 13:46 | W.PFT ---
Date of service: 02/13/22 Time of Service: 13:07 Pulmonary Function Test Result Requesting Provider Anay Indications: COPD/cough Interpretation Spirometry: There is no airflow limitation. There is no significant bronchodilator response. The FVC is low. Lung Volumes: Normal lung volumes Diffusion Capacity: There is a reduced diffusion. Airway Pressure: Increased airways resistance. Impression No airflow obstruction. There is a reduced diffusion and an increased airways resistance. The diffusion may be decreased due to emphysema (without COPD), pulmonary vascular disease or ILD. The increased airways resistance could be seen in asthma. Clinical Correlation therefore is recommended.
== END 2022-02-13 01:49 | disposition home or self-care (01) ==
LOC: RT 01:48
PROVIDERS: PCP Nurse Practitioner Gerontology; Visit Provider Student in an Organized Health Care Education/Training Program
DX: J44.9 Chronic obstructive pulmonary disease, unspecified (principal); R05.8 Other specified cough; J98.4 Other disorders of lung
CPT/HCPCS: 94060; 94726; 94729

== ENCOUNTER 2022-02-25 14:40 | Outpatient (REF) | payer MEDICARE, MEDICAID, SELFPAY ==
[2022-02-25 16:58] LABS: Abs Immature Grans 0.04 10^3/uL (0.0-0.06); Absolute Basophil Count 0.04 10^3/uL (0.0-0.2); Absolute Eosinophil Count 0.15 10^3/uL (0.0-0.7); Absolute Lymphocyte Count 2.86 10^3/uL (1.2-3.4); Absolute Monocyte Count 0.74 10^3/uL (0.1-0.8); Absolute Neutrophil Count 4.51 10^3/uL (1.2-6.7); Basophils % 0.5; Eosinophils % 1.8; HCT 35.3 % (36.0-46.0); HGB 11.5 g/dL (11.2-15.7); Immature Grans % 0.5; Lymphocytes % 34.3; MCH 31.9 pg (27.0-33.0); MCHC 32.6 % (32.0-36.0); MCV 98 fL (80-95); MPV 12.7 fL (8.0-11.0); Monocytes % 8.9; Platelet Count 175 10^3/uL (130-400); RDW 13.6 % (11.7-14.6); WBC 8.34 10^3/uL (4.4-10.8)
[2022-02-25 17:21] LABS: ALT 11 U/L (14-59); AST 18 U/L (15-37); Alkaline Phosphatase 89 U/L (46-116); Anion Gap 4.7 mmol/L (3-11); BUN 19 mg/dL (7-18); Bilirubin, Total 0.3 mg/dL (0.2-1.0); CO2 35.3 mmol/L (21.0-32.0); CREATININE 0.9 mg/dL (0.55-1.02); Calcium 8.8 mg/dL (8.5-10.1); Chloride 102 mmol/L (98-107); Estimated GFR 75.03 (mL/min/1.73m2); Glucose 128 mg/dL (74-106); Potassium 3.7 mmol/L (3.5-5.1); Sodium 142 mmol/L (136-145); TSH (W/Ref FT4) 0.37 uIU/mL (0.36-3.74); Total Protein 7.6 g/dL (6.4-8.2)
[2022-02-25 17:56] LABS: Vitamin D 25 Total 64.8 ng/mL (30-100)
== END 2022-02-25 14:41 | disposition home or self-care (01) ==
LOC: LBN 14:40
PROVIDERS: PCP Nurse Practitioner Gerontology; Visit Provider Nurse Practitioner Gerontology
DX: E11.40 Type 2 diabetes mellitus with diabetic neuropathy, unspecified (principal); R68.89 Other general symptoms and signs; E55.9 Vitamin D deficiency, unspecified; E03.9 Hypothyroidism, unspecified; E56.9 Vitamin deficiency, unspecified
CPT/HCPCS: 80053; 82306; 83036; 84443; 85025

== ENCOUNTER 2022-03-19 18:43 | Outpatient (REF) | payer MEDICARE, MEDICAID, SELFPAY ==
[2022-03-19 19:22] LABS: Bilirubin Small (Negative); Blood Trace-intact (Negative); Clarity Cloudy (Clear); Glucose Negative (Negative); Ketones Negative (Negative); Leukocyte Esterase Large (Negative); Nitrite Negative (Negative); Urobilinogen 0.2 EU/dL (Up TO 0.2); pH 5.5 (5-8)
[2022-03-19 19:27] LABS: HCT 35.7 % (36.0-46.0); HGB 11.8 g/dL (11.2-15.7); MCH 31.8 pg (27.0-33.0); MCHC 33.1 % (32.0-36.0); MCV 96 fL (80-95); MPV 11.8 fL (8.0-11.0); Platelet Count 215 10^3/uL (130-400); RBC 3.71 10^6/uL (3.93-5.22); RDW 13.1 % (11.7-14.6); RDW-SD 46.1 fL
[2022-03-19 19:31] LABS: Bacteria Many HPF (Negative); C & S Indicated? C&S Done As Ordered; Crystals Negative HPF (Negative); Epithelial Cells Moderate HPF (Negative); Mucus Negative (Negative); Other Cells Few Transitional (Negative); WBC >50 HPF (0-5)
[2022-03-19 19:52] LABS: Absolute Basophil Count 0.08 10^3/uL (0.0-0.2); Absolute Lymphocyte Count 2.24 10^3/uL (1.2-3.4); Absolute Monocyte Count 1.36 10^3/uL (0.1-0.8); Absolute Neutrophil Count 4.32 10^3/uL (1.2-6.7); Bands % 6; Diff Comment Manual Differential; RBC Morphology Normal
[2022-03-19 20:12] LABS: Hemoglobin A1C 6.4 % (<5.7)
[2022-03-19 20:24] LABS: Iron 38 ug/dL (50-170); Total Iron Binding Capacity 173 ug/dL (250-450); Transferrin Sat 22 % (15-50)
[2022-03-19 21:00] LABS: ALT 9 U/L (14-59); AST 18 U/L (15-37); Albumin 2.4 g/dL (3.4-5.0); Alkaline Phosphatase 77 U/L (46-116); Anion Gap 10.1 mmol/L (3-11); BUN 34 mg/dL (7-18); Bilirubin, Total 0.3 mg/dL (0.2-1.0); CO2 31.9 mmol/L (21.0-32.0); Calcium 8.5 mg/dL (8.5-10.1); Calculated LDL 16 mg/dL (<100); Chloride 97 mmol/L (98-107); Cholesterol 98 mg/dL (<200); Estimated GFR 66.12 (mL/min/1.73m2); Ferritin 210 ng/mL (8-252); Glucose 131 mg/dL (74-106); HDL Cholesterol 34 mg/dL (40-60); Sodium 139 mmol/L (136-145); TSH (W/Ref FT4) 0.34 uIU/mL (0.36-3.74); Total Protein 6.5 g/dL (6.4-8.2); Triglyceride 243 mg/dL (<150); Vitamin B12 1261 pg/mL (193-986)
[2022-03-19 21:18] LABS: FREE T4 1.08 ng/dL (0.76-1.46); NT-proBNP 6179 pg/mL (<300)
[2022-03-19 21:36] LABS: Vitamin D 25 Total 60.2 ng/mL (30-100)
== END 2022-03-19 18:44 | disposition home or self-care (01) ==
LOC: LBN 18:43
PROVIDERS: PCP Nurse Practitioner Gerontology; Visit Provider Nurse Practitioner Gerontology
DX: R53.83 Other fatigue (principal); E11.40 Type 2 diabetes mellitus with diabetic neuropathy, unspecified; E55.9 Vitamin D deficiency, unspecified; E78.49 Other hyperlipidemia; E03.9 Hypothyroidism, unspecified; E56.9 Vitamin deficiency, unspecified; R68.89 Other general symptoms and signs; D50.9 Iron deficiency anemia, unspecified
CPT/HCPCS: 80053; 80061; 82306; 87077; 81003; 81015; 82607; 82728; 83036; 83540; 83550; 83880; 84439; 84443; 85025; 87086; 87186

== ENCOUNTER 2022-03-24 18:21 | Outpatient (REF) | payer MEDICARE, MEDICAID, SELFPAY ==
[2022-03-24 19:07] LABS: ALT 18 U/L (14-59); AST 45 U/L (15-37); Albumin 2.9 g/dL (3.4-5.0); Alkaline Phosphatase 97 U/L (46-116); Anion Gap 6.4 mmol/L (3-11); BUN 17 mg/dL (7-18); Bilirubin, Total 0.3 mg/dL (0.2-1.0); CO2 34.6 mmol/L (21.0-32.0); CREATININE 1.1 mg/dL (0.55-1.02); Calcium 8.5 mg/dL (8.5-10.1); Chloride 98 mmol/L (98-107); Estimated GFR 58.97 (mL/min/1.73m2); Glucose 135 mg/dL (74-106); NT-proBNP 3510 pg/mL (<300); Potassium 3.1 mmol/L (3.5-5.1); Sodium 139 mmol/L (136-145); Total Protein 7.3 g/dL (6.4-8.2)
== END 2022-03-24 18:22 | disposition home or self-care (01) ==
LOC: LBN 18:21
PROVIDERS: PCP Nurse Practitioner Gerontology; Visit Provider Nurse Practitioner Gerontology
DX: I50.9 Heart failure, unspecified (principal); D50.9 Iron deficiency anemia, unspecified; E03.9 Hypothyroidism, unspecified; E11.40 Type 2 diabetes mellitus with diabetic neuropathy, unspecified
CPT/HCPCS: 80053; 83880

== ENCOUNTER 2022-03-31 22:01 | Outpatient (REF) | payer MEDICARE, MEDICAID, SELFPAY ==
[2022-03-31 22:31] LABS: ALT 17 U/L (14-59); AST 21 U/L (15-37); Albumin 2.8 g/dL (3.4-5.0); Alkaline Phosphatase 87 U/L (46-116); Anion Gap 6.7 mmol/L (3-11); BUN 26 mg/dL (7-18); Bilirubin, Total 0.3 mg/dL (0.2-1.0); CO2 30.3 mmol/L (21.0-32.0); CREATININE 1.1 mg/dL (0.55-1.02); Calcium 8.4 mg/dL (8.5-10.1); Chloride 102 mmol/L (98-107); Estimated GFR 58.97 (mL/min/1.73m2); Glucose 231 mg/dL (74-106); NT-proBNP 3720 pg/mL (<300); Potassium 4.5 mmol/L (3.5-5.1); Sodium 139 mmol/L (136-145)
== END 2022-03-31 22:02 | disposition home or self-care (01) ==
LOC: LBN 22:01
PROVIDERS: Visit Provider Nurse Practitioner Gerontology
DX: J44.9 Chronic obstructive pulmonary disease, unspecified (principal); E78.49 Other hyperlipidemia; R68.89 Other general symptoms and signs
CPT/HCPCS: 80053; 83880

== ENCOUNTER 2022-04-21 19:03 | Outpatient (REF) | payer MEDICARE, MEDICAID, SELFPAY ==
[2022-04-21 20:15] LABS: Bilirubin Negative (Negative); Blood Negative (Negative); Clarity Clear (Clear); Glucose Negative (Negative); Ketones Negative (Negative); Leukocyte Esterase Moderate (Negative); Nitrite Negative (Negative); Urobilinogen 0.2 EU/dL (Up TO 0.2); pH 5.5 (5-8)
[2022-04-21 20:28] LABS: Bacteria Moderate HPF (Negative); C & S Indicated? No; Casts Negative LPF (Negative); Crystals Negative HPF (Negative); Epithelial Cells Rare HPF (Negative); Mucus Negative (Negative); Other Cells Negative (Negative); RBC 0-2 HPF (0-2); WBC 20-50 HPF (0-5)
== END 2022-04-21 19:04 | disposition home or self-care (01) ==
LOC: LBN 19:03
PROVIDERS: Visit Provider Nurse Practitioner Gerontology
DX: R30.0 Dysuria (principal)
CPT/HCPCS: 87077; 81003; 81015; 87086; 87186

== ENCOUNTER 2022-04-28 18:16 | Outpatient (REF) | payer MEDICARE, MEDICAID, SELFPAY ==
[2022-04-28 18:54] LABS: Abs Immature Grans 0.08 10^3/uL (0.0-0.06); Absolute Basophil Count 0.05 10^3/uL (0.0-0.2); Absolute Lymphocyte Count 2.68 10^3/uL (1.2-3.4); Absolute Monocyte Count 0.76 10^3/uL (0.1-0.8); Absolute Neutrophil Count 6.64 10^3/uL (1.2-6.7); Basophils % 0.5; HCT 32.9 % (36.0-46.0); HGB 10.5 g/dL (11.2-15.7); Immature Grans % 0.8; Lymphocytes % 26.2; MCH 31.7 pg (27.0-33.0); MCHC 31.9 % (32.0-36.0); MCV 99 fL (80-95); MPV 11.4 fL (8.0-11.0); Monocytes % 7.4; Neutrophils % 65.1; Platelet Count 228 10^3/uL (130-400); RBC 3.31 10^6/uL (3.93-5.22); RDW-SD 54.3 fL; WBC 10.21 10^3/uL (4.4-10.8)
[2022-04-28 19:10] LABS: ALT 15 U/L (14-59); AST 15 U/L (15-37); Albumin 3.1 g/dL (3.4-5.0); Alkaline Phosphatase 112 U/L (46-116); BUN 30 mg/dL (7-18); Bilirubin, Total 0.3 mg/dL (0.2-1.0); CREATININE 1.1 mg/dL (0.55-1.02); Calcium 8.9 mg/dL (8.5-10.1); Chloride 99 mmol/L (98-107); Estimated GFR 58.97 (mL/min/1.73m2); Glucose 360 mg/dL (74-106); Potassium 4.4 mmol/L (3.5-5.1); Sodium 139 mmol/L (136-145); Total Protein 7.1 g/dL (6.4-8.2)
== END 2022-04-28 18:17 | disposition home or self-care (01) ==
LOC: LBN 18:16
PROVIDERS: Visit Provider Nurse Practitioner Gerontology
DX: F31.5 Bipolar disorder, current episode depressed, severe, with psychotic features (principal); F60.1 Schizoid personality disorder; R68.89 Other general symptoms and signs; D50.9 Iron deficiency anemia, unspecified; E03.9 Hypothyroidism, unspecified; E11.9 Type 2 diabetes mellitus without complications
CPT/HCPCS: 80053; 85025

== ENCOUNTER → 2022-05-01 11:15 | Outpatient (BNVA) | payer MEDICARE, MEDICAID, SELFPAY | PROVIDERS: PCP Nurse Practitioner Gerontology; Referring Provider Nurse Practitioner Gerontology; Visit Provider Internal Medicine Cardiovascular Disease | DX: I25.10 Atherosclerotic heart disease of native coronary artery without angina pectoris (principal); I35.0 Nonrheumatic aortic (valve) stenosis; I44.7 Left bundle-branch block, unspecified; R60.0 Localized edema | CPT/HCPCS: 99213 ==

== ENCOUNTER 2022-06-03 17:59 | Outpatient (REF) | payer MEDICARE, MEDICAID, SELFPAY ==
[2022-06-03 16:43] LABS: Abs Immature Grans 0.09 10^3/uL (0.0-0.06); Absolute Basophil Count 0.07 10^3/uL (0.0-0.2); Absolute Lymphocyte Count 3.55 10^3/uL (1.2-3.4); Absolute Monocyte Count 0.95 10^3/uL (0.1-0.8); Absolute Neutrophil Count 6.97 10^3/uL (1.2-6.7); Basophils % 0.6; HCT 37.4 % (36.0-46.0); HGB 12.1 g/dL (11.2-15.7); Immature Grans % 0.8; Lymphocytes % 30.5; MCH 31.8 pg (27.0-33.0); MCHC 32.4 % (32.0-36.0); MCV 98 fL (80-95); MPV 11.1 fL (8.0-11.0); Monocytes % 8.2; Neutrophils % 59.9; Platelet Count 201 10^3/uL (130-400); RBC 3.81 10^6/uL (3.93-5.22); RDW 13.4 % (11.7-14.6); RDW-SD 47.8 fL; WBC 11.63 10^3/uL (4.4-10.8)
[2022-06-03 16:59] LABS: ALT 15 U/L (14-59); AST 14 U/L (15-37); Albumin 3.2 g/dL (3.4-5.0); Alkaline Phosphatase 114 U/L (46-116); Anion Gap 8.8 mmol/L (3-11); BUN 24 mg/dL (7-18); Bilirubin, Total 0.4 mg/dL (0.2-1.0); CO2 31.2 mmol/L (21.0-32.0); CREATININE 1.2 mg/dL (0.55-1.02); Calcium 9.3 mg/dL (8.5-10.1); Chloride 103 mmol/L (98-107); Estimated GFR 53.13 (mL/min/1.73m2); Glucose 218 mg/dL (74-106); Potassium 4.8 mmol/L (3.5-5.1); Sodium 143 mmol/L (136-145); Total Protein 7.6 g/dL (6.4-8.2)
[2022-06-04 09:40] LABS: NT-proBNP 3733 pg/mL (<300)
== END 2022-06-03 18:00 | disposition home or self-care (01) ==
LOC: LBN 17:59
PROVIDERS: PCP Nurse Practitioner Gerontology; Visit Provider Nurse Practitioner Gerontology
DX: Z13.9 Encounter for screening, unspecified (principal); R68.89 Other general symptoms and signs
CPT/HCPCS: 80053; 83880; 85025

== ENCOUNTER 2022-06-23 17:34 | Outpatient (REF) | payer MEDICARE, MEDICAID, SELFPAY ==
[2022-06-23 18:53] LABS: Abs Immature Grans 0.09 10^3/uL (0.0-0.06); Absolute Basophil Count 0.05 10^3/uL (0.0-0.2); Absolute Lymphocyte Count 3.22 10^3/uL (1.2-3.4); Basophils % 0.4; HCT 34.8 % (36.0-46.0); HGB 11.2 g/dL (11.2-15.7); Immature Grans % 0.8; Lymphocytes % 27.7; MCHC 32.2 % (32.0-36.0); MCV 99 fL (80-95); MPV 11.9 fL (8.0-11.0); Monocytes % 9.5; Neutrophils % 61.6; Platelet Count 161 10^3/uL (130-400); RDW 13.3 % (11.7-14.6); RDW-SD 47.9 fL; WBC 11.63 10^3/uL (4.4-10.8)
[2022-06-23 18:54] LABS: Absolute Neutrophil Count 7.16 10^3/uL (1.2-6.7)
[2022-06-23 19:17] LABS: ALT 22 U/L (14-59); AST 20 U/L (15-37); Alkaline Phosphatase 104 U/L (46-116); Anion Gap 8.7 mmol/L (3-11); BUN 28 mg/dL (7-18); Bilirubin, Total 0.3 mg/dL (0.2-1.0); CO2 27.3 mmol/L (21.0-32.0); CREATININE 1.4 mg/dL (0.55-1.02); Calcium 8.5 mg/dL (8.5-10.1); Chloride 102 mmol/L (98-107); Estimated GFR 44.16 (mL/min/1.73m2); Glucose 297 mg/dL (74-106); NT-proBNP 2866 pg/mL (<300); Potassium 4.3 mmol/L (3.5-5.1); Sodium 138 mmol/L (136-145); Total Protein 7.2 g/dL (6.4-8.2)
== END 2022-06-23 17:35 | disposition home or self-care (01) ==
LOC: LBN 17:34
PROVIDERS: PCP Nurse Practitioner Gerontology; Visit Provider Nurse Practitioner Gerontology
DX: I50.9 Heart failure, unspecified (principal); E11.9 Type 2 diabetes mellitus without complications; D50.9 Iron deficiency anemia, unspecified; E03.9 Hypothyroidism, unspecified
CPT/HCPCS: 80053; 83880; 85025

== ENCOUNTER 2022-07-23 16:35 | Outpatient (REF) | payer MEDICARE, MEDICAID, SELFPAY ==
[2022-07-23 17:33] LABS: Abs Immature Grans 0.04 10^3/uL (0.0-0.06); Absolute Basophil Count 0.03 10^3/uL (0.0-0.2); Absolute Lymphocyte Count 2.52 10^3/uL (1.2-3.4); Absolute Neutrophil Count 5.95 10^3/uL (1.2-6.7); Basophils % 0.3; HCT 38.1 % (36.0-46.0); HGB 12.2 g/dL (11.2-15.7); Immature Grans % 0.4; Lymphocytes % 27.3; MCH 31.8 pg (27.0-33.0); MCV 99 fL (80-95); MPV 11.9 fL (8.0-11.0); Monocytes % 7.6; Neutrophils % 64.4; Platelet Count 144 10^3/uL (130-400); RBC 3.84 10^6/uL (3.93-5.22); RDW 14.6 % (11.7-14.6); RDW-SD 53.1 fL; WBC 9.24 10^3/uL (4.4-10.8)
[2022-07-23 17:44] LABS: TSH (W/Ref FT4) 0.24 uIU/mL (0.36-3.74)
[2022-07-24 11:26] LABS: ALT 23 U/L (14-59); AST 27 U/L (15-37); Albumin 3.3 g/dL (3.4-5.0); Alkaline Phosphatase 92 U/L (46-116); Anion Gap 10.3 mmol/L (3-11); BUN 15 mg/dL (7-18); Bilirubin, Total 0.4 mg/dL (0.2-1.0); CO2 28.7 mmol/L (21.0-32.0); CREATININE 1.3 mg/dL (0.55-1.02); Calcium 8.9 mg/dL (8.5-10.1); Chloride 103 mmol/L (98-107); Estimated GFR 48.26 (mL/min/1.73m2); Glucose 182 mg/dL (74-106); Sodium 142 mmol/L (136-145); Total Protein 7.6 g/dL (6.4-8.2)
== END 2022-07-23 16:36 | disposition home or self-care (01) ==
LOC: LBN 16:35
PROVIDERS: PCP Nurse Practitioner Gerontology; Visit Provider Nurse Practitioner Gerontology
DX: F31.5 Bipolar disorder, current episode depressed, severe, with psychotic features (principal); F60.1 Schizoid personality disorder; I50.22 Chronic systolic (congestive) heart failure; R68.89 Other general symptoms and signs; J44.9 Chronic obstructive pulmonary disease, unspecified; D50.9 Iron deficiency anemia, unspecified; E03.9 Hypothyroidism, unspecified
CPT/HCPCS: 80053; 84439; 84443; 85025

== ENCOUNTER 2022-08-18 19:42 | Outpatient (REF) | payer MEDICARE, MEDICAID, SELFPAY ==
[2022-08-18 19:53] LABS: Abs Immature Grans 0.04 10^3/uL (0.0-0.06); Absolute Basophil Count 0.04 10^3/uL (0.0-0.2); Absolute Lymphocyte Count 2.65 10^3/uL (1.2-3.4); Absolute Monocyte Count 0.65 10^3/uL (0.1-0.8); Absolute Neutrophil Count 4.97 10^3/uL (1.2-6.7); Basophils % 0.5; HCT 39.7 % (36.0-46.0); HGB 12.5 g/dL (11.2-15.7); Immature Grans % 0.5; Lymphocytes % 31.7; MCHC 31.5 % (32.0-36.0); MCV 102 fL (80-95); MPV 12.1 fL (8.0-11.0); Monocytes % 7.8; Neutrophils % 59.5; Platelet Count 154 10^3/uL (130-400); RBC 3.91 10^6/uL (3.93-5.22); RDW 14.6 % (11.7-14.6); RDW-SD 54.4 fL; WBC 8.35 10^3/uL (4.4-10.8)
[2022-08-18 20:17] LABS: ALT 20 U/L (14-59); AST 28 U/L (15-37); Albumin 3.2 g/dL (3.4-5.0); Alkaline Phosphatase 99 U/L (46-116); Anion Gap 8.9 mmol/L (3-11); BUN 17 mg/dL (7-18); Bilirubin, Total 0.5 mg/dL (0.2-1.0); CO2 30.1 mmol/L (21.0-32.0); CREATININE 1.3 mg/dL (0.55-1.02); Chloride 104 mmol/L (98-107); Estimated GFR 48.26 (mL/min/1.73m2); Glucose 135 mg/dL (74-106); Potassium 4.2 mmol/L (3.5-5.1); Sodium 143 mmol/L (136-145); Total Protein 7.6 g/dL (6.4-8.2)
[2022-08-18 20:41] LABS: Hemoglobin A1C 6.8 % (<5.7)
== END 2022-08-18 19:43 | disposition home or self-care (01) ==
LOC: LBN 19:42
PROVIDERS: PCP Nurse Practitioner Gerontology; Visit Provider Nurse Practitioner Gerontology
DX: E11.40 Type 2 diabetes mellitus with diabetic neuropathy, unspecified (principal); E87.6 Hypokalemia; E03.9 Hypothyroidism, unspecified
CPT/HCPCS: 80053; 83036; 85025

== ENCOUNTER 2022-09-16 17:51 | Outpatient (REF) | payer MEDICARE, MEDICAID, SELFPAY ==
[2022-09-16 19:41] LABS: Abs Immature Grans 0.04 10^3/uL (0.0-0.06); Absolute Basophil Count 0.06 10^3/uL (0.0-0.2); Absolute Lymphocyte Count 2.82 10^3/uL (1.2-3.4); Absolute Monocyte Count 0.69 10^3/uL (0.1-0.8); Absolute Neutrophil Count 5.84 10^3/uL (1.2-6.7); Basophils % 0.6; HCT 35.8 % (36.0-46.0); HGB 11.5 g/dL (11.2-15.7); Immature Grans % 0.4; Lymphocytes % 29.8; MCH 32.1 pg (27.0-33.0); MCHC 32.1 % (32.0-36.0); MCV 100 fL (80-95); MPV 11.5 fL (8.0-11.0); Monocytes % 7.3; Neutrophils % 61.9; Platelet Count 165 10^3/uL (130-400); RBC 3.58 10^6/uL (3.93-5.22); RDW-SD 51.7 fL; WBC 9.45 10^3/uL (4.4-10.8)
[2022-09-16 19:51] LABS: ALT 16 U/L (14-59); AST 24 U/L (15-37); Albumin 3.1 g/dL (3.4-5.0); Alkaline Phosphatase 111 U/L (46-116); Anion Gap 9.4 mmol/L (3-11); BUN 22 mg/dL (7-18); Bilirubin, Total 0.3 mg/dL (0.2-1.0); CO2 28.6 mmol/L (21.0-32.0); CREATININE 1.1 mg/dL (0.55-1.02); Calcium 8.3 mg/dL (8.5-10.1); Chloride 103 mmol/L (98-107); Estimated GFR 58.97 (mL/min/1.73m2); Glucose 200 mg/dL (74-106); Magnesium 1.8 mg/dL (1.8-2.4); Potassium 4.2 mmol/L (3.5-5.1); Sodium 141 mmol/L (136-145); Total Protein 7.1 g/dL (6.4-8.2)
== END 2022-09-16 17:52 | disposition home or self-care (01) ==
LOC: LBN 17:51
PROVIDERS: PCP Nurse Practitioner Gerontology; Visit Provider Nurse Practitioner Gerontology
DX: D64.9 Anemia, unspecified (principal); R68.89 Other general symptoms and signs; R89.2 Abnormal level of other drugs, medicaments and biological substances in specimens from other organs, systems and tissues; E83.42 Hypomagnesemia
CPT/HCPCS: 80053; 83735; 85025

== ENCOUNTER 2022-09-18 16:37 | Outpatient (REF) | payer MEDICARE, MEDICAID, SELFPAY | END 2022-09-18 16:38 | disposition home or self-care (01) | LOC: LBN 16:37 | PROVIDERS: PCP Nurse Practitioner Gerontology; Visit Provider Nurse Practitioner Gerontology | DX: J02.0 Streptococcal pharyngitis (principal) | CPT/HCPCS: 87081 ==

== ENCOUNTER 2022-09-24 16:36 | Outpatient (REF) | payer MEDICARE, MEDICAID, SELFPAY ==
[2022-09-24 17:01] LABS: Abs Immature Grans 0.19 10^3/uL (0.0-0.06); Absolute Basophil Count 0.09 10^3/uL (0.0-0.2); Absolute Lymphocyte Count 2.91 10^3/uL (1.2-3.4); Absolute Neutrophil Count 6.52 10^3/uL (1.2-6.7); Basophils % 0.8; HGB 10.7 g/dL (11.2-15.7); Immature Grans % 1.8; Lymphocytes % 26.9; MCH 32.3 pg (27.0-33.0); MCHC 32.4 % (32.0-36.0); MCV 100 fL (80-95); MPV 11.1 fL (8.0-11.0); Monocytes % 10.2; Neutrophils % 60.3; Platelet Count 236 10^3/uL (130-400); RBC 3.31 10^6/uL (3.93-5.22); RDW 13.8 % (11.7-14.6); RDW-SD 50.4 fL; WBC 10.81 10^3/uL (4.4-10.8)
[2022-09-24 17:42] LABS: ALT 17 U/L (14-59); AST 26 U/L (15-37); Albumin 2.4 g/dL (3.4-5.0); Alkaline Phosphatase 111 U/L (46-116); Anion Gap 9.1 mmol/L (3-11); BUN 24 mg/dL (7-18); Bilirubin, Total 0.3 mg/dL (0.2-1.0); CO2 31.9 mmol/L (21.0-32.0); CREATININE 1.1 mg/dL (0.55-1.02); Calcium 8.4 mg/dL (8.5-10.1); Chloride 103 mmol/L (98-107); Estimated GFR 58.97 (mL/min/1.73m2); Glucose 138 mg/dL (74-106); Potassium 3.6 mmol/L (3.5-5.1); Sodium 144 mmol/L (136-145); Total Protein 6.7 g/dL (6.4-8.2)
[2022-09-25 11:28] LABS: NT-proBNP 6841 pg/mL (<300)
== END 2022-09-24 16:37 | disposition home or self-care (01) ==
LOC: LBN 16:36
PROVIDERS: PCP Nurse Practitioner Gerontology; Visit Provider Nurse Practitioner Gerontology
DX: N18.2 Chronic kidney disease, stage 2 (mild) (principal); F41.1 Generalized anxiety disorder; E11.40 Type 2 diabetes mellitus with diabetic neuropathy, unspecified
CPT/HCPCS: 80053; 83880; 85025

== ENCOUNTER 2022-09-30 17:14 | Outpatient (REF) | payer MEDICARE, MEDICAID, SELFPAY ==
[2022-09-30 18:12] LABS: Abs Immature Grans 0.36 10^3/uL (0.0-0.06); Absolute Lymphocyte Count 3.69 10^3/uL (1.2-3.4); Absolute Monocyte Count 1.15 10^3/uL (0.1-0.8); Basophils % 0.5; HCT 33.4 % (36.0-46.0); HGB 10.7 g/dL (11.2-15.7); Immature Grans % 1.9; Lymphocytes % 19.9; MCH 32.4 pg (27.0-33.0); MCV 101 fL (80-95); MPV 10.9 fL (8.0-11.0); Monocytes % 6.2; Neutrophils % 71.5; Platelet Count 262 10^3/uL (130-400); RDW 14.2 % (11.7-14.6); RDW-SD 51.8 fL; WBC 18.56 10^3/uL (4.4-10.8)
[2022-09-30 18:19] LABS: Absolute Basophil Count 0.09 10^3/uL (0.0-0.2); Absolute Neutrophil Count 13.27 10^3/uL (1.2-6.7)
[2022-09-30 18:36] LABS: ALT 13 U/L (14-59); AST 19 U/L (15-37); Albumin 2.6 g/dL (3.4-5.0); Alkaline Phosphatase 100 U/L (46-116); Anion Gap 7.8 mmol/L (3-11); BUN 20 mg/dL (7-18); Bilirubin, Total 0.3 mg/dL (0.2-1.0); CO2 30.2 mmol/L (21.0-32.0); CREATININE 1.2 mg/dL (0.55-1.02); Calcium 8.4 mg/dL (8.5-10.1); Chloride 104 mmol/L (98-107); Estimated GFR 53.13 (mL/min/1.73m2); Glucose 168 mg/dL (74-106); NT-proBNP 4004 pg/mL (<300); Potassium 4.1 mmol/L (3.5-5.1); Sodium 142 mmol/L (136-145); Total Protein 6.6 g/dL (6.4-8.2)
== END 2022-09-30 17:15 | disposition home or self-care (01) ==
LOC: LBN 17:14
PROVIDERS: PCP Nurse Practitioner Gerontology; Visit Provider Nurse Practitioner Gerontology
DX: I50.9 Heart failure, unspecified (principal); G89.4 Chronic pain syndrome; R53.83 Other fatigue
CPT/HCPCS: 80053; 83880; 85025

== ENCOUNTER 2022-10-07 19:11 | Outpatient (REF) | payer MEDICARE, MEDICAID, SELFPAY ==
[2022-10-07 19:50] LABS: Abs Immature Grans 0.04 10^3/uL (0.0-0.06); Absolute Basophil Count 0.07 10^3/uL (0.0-0.2); Absolute Lymphocyte Count 2.64 10^3/uL (1.2-3.4); Absolute Monocyte Count 0.67 10^3/uL (0.1-0.8); Absolute Neutrophil Count 5.02 10^3/uL (1.2-6.7); Basophils % 0.8; HCT 35.7 % (36.0-46.0); HGB 11.3 g/dL (11.2-15.7); Immature Grans % 0.5; Lymphocytes % 31.3; MCH 31.7 pg (27.0-33.0); MCHC 31.7 % (32.0-36.0); MCV 100 fL (80-95); MPV 11.3 fL (8.0-11.0); Monocytes % 7.9; Neutrophils % 59.5; Platelet Count 185 10^3/uL (130-400); RBC 3.57 10^6/uL (3.93-5.22); RDW 13.9 % (11.7-14.6); RDW-SD 51.4 fL; WBC 8.44 10^3/uL (4.4-10.8)
[2022-10-07 20:13] LABS: NT-proBNP 3536 pg/mL (<300)
== END 2022-10-07 19:12 | disposition home or self-care (01) ==
LOC: LBN 19:11
PROVIDERS: PCP Nurse Practitioner Gerontology; Visit Provider Nurse Practitioner Gerontology
DX: I50.42 Chronic combined systolic (congestive) and diastolic (congestive) heart failure (principal); N18.2 Chronic kidney disease, stage 2 (mild); R68.89 Other general symptoms and signs
CPT/HCPCS: 83880; 85025

== ENCOUNTER 2022-10-16 16:01 | Outpatient (REF) | payer MEDICARE, MEDICAID, SELFPAY ==
[2022-10-16 17:18] LABS: Abs Immature Grans 0.09 10^3/uL (0.0-0.06); Absolute Basophil Count 0.08 10^3/uL (0.0-0.2); Absolute Neutrophil Count 6.57 10^3/uL (1.2-6.7); Basophils % 0.7; HCT 36.6 % (36.0-46.0); HGB 11.5 g/dL (11.2-15.7); Immature Grans % 0.8; MCH 31.9 pg (27.0-33.0); MCHC 31.4 % (32.0-36.0); MCV 101 fL (80-95); MPV 11.4 fL (8.0-11.0); Monocytes % 9.4; Neutrophils % 56.1; Platelet Count 175 10^3/uL (130-400); RBC 3.61 10^6/uL (3.93-5.22); RDW 14.5 % (11.7-14.6); RDW-SD 54.3 fL; WBC 11.71 10^3/uL (4.4-10.8)
[2022-10-16 17:19] LABS: Absolute Lymphocyte Count 3.86 10^3/uL (1.2-3.4)
[2022-10-16 17:41] LABS: ALT 14 U/L (14-59); AST 22 U/L (15-37); Alkaline Phosphatase 106 U/L (46-116); Anion Gap 9.9 mmol/L (3-11); BUN 20 mg/dL (7-18); Bilirubin, Total 0.3 mg/dL (0.2-1.0); CO2 26.1 mmol/L (21.0-32.0); CREATININE 1.4 mg/dL (0.55-1.02); Calcium 8.8 mg/dL (8.5-10.1); Chloride 102 mmol/L (98-107); Estimated GFR 43.88 (mL/min/1.73m2); Glucose 171 mg/dL (74-106); NT-proBNP 5739 pg/mL (<300); Potassium 5.4 mmol/L (3.5-5.1); Sodium 138 mmol/L (136-145); Total Protein 7.5 g/dL (6.4-8.2)
== END 2022-10-16 16:02 | disposition home or self-care (01) ==
LOC: LBN 16:01
PROVIDERS: PCP Nurse Practitioner Gerontology; Visit Provider Nurse Practitioner Gerontology
DX: I50.9 Heart failure, unspecified (principal); R68.89 Other general symptoms and signs; D50.9 Iron deficiency anemia, unspecified; E11.9 Type 2 diabetes mellitus without complications; E03.9 Hypothyroidism, unspecified
CPT/HCPCS: 80053; 83880; 85025

== ENCOUNTER 2022-10-21 15:37 | Outpatient (REF) | payer MEDICARE, MEDICAID, SELFPAY ==
[2022-10-21 21:15] LABS: ALT 11 U/L (14-59); AST 15 U/L (15-37); Albumin 2.9 g/dL (3.4-5.0); Alkaline Phosphatase 100 U/L (46-116); Anion Gap 8.9 mmol/L (3-11); BUN 23 mg/dL (7-18); Bilirubin, Total 0.4 mg/dL (0.2-1.0); CO2 30.1 mmol/L (21.0-32.0); CREATININE 1.2 mg/dL (0.55-1.02); Calcium 8.7 mg/dL (8.5-10.1); Chloride 102 mmol/L (98-107); Glucose 151 mg/dL (74-106); NT-proBNP 4175 pg/mL (<300); Potassium 3.9 mmol/L (3.5-5.1); Sodium 141 mmol/L (136-145); Total Protein 7.2 g/dL (6.4-8.2)
[2022-10-21 21:18] LABS: Abs Immature Grans 0.06 10^3/uL (0.0-0.06); Absolute Basophil Count 0.03 10^3/uL (0.0-0.2); Absolute Eosinophil Count 0.14 10^3/uL (0.0-0.7); Absolute Lymphocyte Count 3.19 10^3/uL (1.2-3.4); Absolute Monocyte Count 0.74 10^3/uL (0.1-0.8); Absolute Neutrophil Count 3.37 10^3/uL (1.2-6.7); Basophils % 0.4; Eosinophils % 1.9; HCT 35.7 % (36.0-46.0); HGB 11.5 g/dL (11.2-15.7); Immature Grans % 0.8; Lymphocytes % 42.4; MCH 32.3 pg (27.0-33.0); MCHC 32.2 % (32.0-36.0); MCV 100 fL (80-95); MPV 12.2 fL (8.0-11.0); Monocytes % 9.8; Neutrophils % 44.7; Platelet Count 124 10^3/uL (130-400); RBC 3.56 10^6/uL (3.93-5.22); RDW 14.6 % (11.7-14.6); RDW-SD 53.3 fL; WBC 7.53 10^3/uL (4.4-10.8)
== END 2022-10-21 15:38 | disposition home or self-care (01) ==
LOC: LBN 15:37
PROVIDERS: PCP Nurse Practitioner Gerontology; Visit Provider Nurse Practitioner Gerontology
DX: R53.82 Chronic fatigue, unspecified (principal); I50.9 Heart failure, unspecified; E11.9 Type 2 diabetes mellitus without complications; E03.9 Hypothyroidism, unspecified; D50.9 Iron deficiency anemia, unspecified
CPT/HCPCS: 80053; 83880; 84439; 84443; 85025

== ENCOUNTER 2022-11-02 12:52 | Emergency (ER) | payer MEDICARE, MEDICAID, SELFPAY ==
[2022-11-02] VITALS (36 sets, daily range): BP systolic 74–119; BP diastolic 29–92; PULSE 70–87; RESP 13–34; TEMP 36.6; O2SAT 97
--- NOTE | 2022-11-02 13:30 | RT.EKG_ITS ---
APPROVED REPORT Exam: Resting ECG Reason for Exam: chest pain Patient Location: E HR:77 bpm ECG Measurements Heart Rate 77 AXIS NV 167 P 30 QRSd 178 QRS -50 QT 504 T 107 QTc 571 Conclusion normal inus rhythm Left bundle branch block. No ST segment or T wave abnormalities to suggest occlusive IN
[2022-11-02 13:31] LABS: Abs Immature Grans 0.04 10^3/uL (0.0-0.06); Absolute Basophil Count 0.06 10^3/uL (0.0-0.2); Absolute Lymphocyte Count 2.53 10^3/uL (1.2-3.4); Absolute Monocyte Count 0.62 10^3/uL (0.1-0.8); Absolute Neutrophil Count 4.88 10^3/uL (1.2-6.7); Basophils % 0.7; HCT 36.8 % (36.0-46.0); Immature Grans % 0.5; Lymphocytes % 31.1; MCH 31.9 pg (27.0-33.0); MCHC 32.6 % (32.0-36.0); MCV 98 fL (80-95); MPV 10.6 fL (8.0-11.0); Monocytes % 7.6; Neutrophils % 60.1; Platelet Count 179 10^3/uL (130-400); RBC 3.76 10^6/uL (3.93-5.22); RDW 14.2 % (11.7-14.6); RDW-SD 51.5 fL; WBC 8.13 10^3/uL (4.4-10.8)
[2022-11-02] MEDS: Ondansetron 4 MG/2 ML VIAL IVP (13:32)
[2022-11-02] MEDS: ACETAMINOPHEN 1,000 MG/100 ML BTL 400 MG IVPB (13:33)
--- NOTE | 2022-11-02 13:37 | NUR.NOTE ---
Nursing Note: patient used call light. DARIELA and another Nurse helped patient x2 assist to commode, patient voided. patient back to laying on stretcher Call light within reach of patient at this time
[2022-11-02 13:44] LABS: Bilirubin Negative (Negative); Blood Trace-intact (Negative); Clarity Clear (Clear); Glucose Negative (Negative); Ketones Negative (Negative); Leukocyte Esterase Moderate (Negative); Nitrite Negative (Negative); Specific Gravity 1.015 (1.005-1.025); Urobilinogen 0.2 mg/dL (Up to 0.2)
[2022-11-02 13:47] LABS: Bacteria Moderate HPF (Negative); C & S Indicated? Yes; Casts Negative LPF (Negative); Crystals Negative HPF (Negative); Epithelial Cells Rare HPF (Negative); Mucus Negative (Negative)
[2022-11-02 14:14] LABS: ALT 12 U/L (14-59); AST 23 U/L (15-37); Albumin 2.8 g/dL (3.4-5.0); Alkaline Phosphatase 93 U/L (46-116); Anion Gap 7.6 mmol/L (3-11); BUN 22 mg/dL (7-18); Bilirubin, Total 0.4 mg/dL (0.2-1.0); CO2 33.4 mmol/L (21.0-32.0); CREATININE 1.2 mg/dL (0.55-1.02); Calcium 8.6 mg/dL (8.5-10.1); Chloride 98 mmol/L (98-107); Glucose 102 mg/dL (74-106); Lipase 37 U/L (16-77); Magnesium 2.2 mg/dL (1.8-2.4); Sodium 139 mmol/L (136-145); Total Protein 7.3 g/dL (6.4-8.2); Troponin I < 50 ng/L (<or=60)
[2022-11-02 14:18] LABS: Potassium 2.6 mmol/L (3.5-5.1)
[2022-11-02] MEDS: Fosfomycin Tromethamine 3 GM PACKET PO (14:53)
[2022-11-02] MEDS: Potassium Chloride 20 MEQ TABCR 40 MEQ PO (14:55)
[2022-11-02] MEDS: POTASSIUM CHLORIDE 20 MEQ/100 ML BAG 50 MEQ IVPB (15:02)
--- NOTE | 2022-11-02 16:00 | DI.CT_ITS ---
Exam(s) CT ABDOMEN PELVIS W EXAM: CT ABDOMEN PELVIS W CLINICAL HISTORY: Abdominal pain, vomiting. TECHNIQUE: Imaging Protocol: Axial computed tomography images with coronal and sagittal reformatted images were created and reviewed CONTRAST MATERIAL: Intravenous: Omnipaque 350 Contrast volume:100 ml Oral: no COMPARISON: CT CT CHEST/ABD/PEL WO from 02/06/[address] CHEST/ABD/PEL WO from 01/15/2022 FINDINGS: ABDOMEN: Lung Bases: Normal where visualized. Heart enlarged. Coronary artery calcifications. Liver: Fatty infiltration. No measurable mass. Gallbladder and biliary tract: No radiodense calculus or dilation. Pancreas: Normal density, no abnormal calcifications or inflammatory process. 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 Spleen: Normal. Kidneys: Atrophic right kidney. nonobstructing left renal calculi. No suspicious masses seen. Adrenal glands: No masses seen. Abdominal Aorta: Abdominal portion non-dilated. Aorta heavily calcified. Severe narrowing of the d iameter of the proximal iliac arteries. Heavy calcification at the celiac axis and SMA. Soft tissues: Unremarkable. PELVIS: Bladder: No gross wall thickening. No calculi.No focal mass. Bowel: Large quantity of stool with high density material, previously administered contrast versus ot her ingested material. No bowel wall thickening. Appendix normal. Peritoneal cavity: No ascites, collection or mesenteric inflammatory response. Bones: L5 pars defects and minimal L5-S1 spondylolisthesis. Reproductive organs: Within normal limits. Lymph nodes: Unremarkable. Impression: Large quantity of stool noted throughout the colon, consistent with constipation. Stable appearance of atrophic right kidney. Nonobstructing left renal calculi. Severe atherosclerotic vascular disease. RADIATION DOSE DELIVERED: 668.57mGy.cm Total DLP DATA REPOSITORY: All CT scans at this facility are submitted to the National Radiology Data Registry (NRDR) Dose Index Registry (DIR) with the [employer] ([employer]). RADIATION OPTIMIZATION: All CT scans at this facility use at least one of these dose optimization te chniques: automated exposure control; mA and/or kV adjustment per patient size (includes targeted exa ms where dose is matched to clinical indication); or iterative reconstruction.
--- NOTE | 2022-11-02 16:14 | ED.GENADUL_ITS ---
Discharge Plan Disposition Patient Disposition: Home Condition: Stable Discharge Details Clinical Impression: Urinary tract infection, Constipation Primary Care Provider: Aranza Mackenzie ED Provider: Lorraine Pires Meds and New Rx's Prescriptions: New phenazopyridine [Pyridium] 100 mg tablet 100 mg PO TID PRNQty: 6 0RF Continued potassium chloride 10 mEq tablet extended release See Rx Instructions PO DAILY Rx Instructions: 60 MEQ orally daily; levothyroxine 125 mcg capsule 125 mcg PO DAILY Patient Comments: not on med list trihexyphenidyl 2 mg tablet 2 mg PO TID clozapine 25 mg tablet 50 mg PO DAILY Patient Comments: not on med list ferrous gluconate 324 mg (37.5 mg iron) tablet 324 mg PO DAILY Mag-Delay 64 mg tablet,delayed release (DR/EC) 64 mg PO DAILY Nicotrol 10 mg cartridge 1 inh inhalation 4-6XD PRN Patient Comments: not on med list lidocaine (PF) 10 mg/mL (1 %) solution 5 ml intradermal ONCE Qty: 5 0RF Patient Comments: not on med list torsemide 20 mg tablet 100 mg PO BID Patient Comments: not on med list metformin 500 mg tablet 250 mg PO BID Patient Comments: not on med list atorvastatin 40 mg tablet 40 mg PO QHS Patient Comments: not on med list divalproex 500 mg tablet extended release 24 hr 1,500 mg PO HS Patient Comments: not on med list nitroglycerin [Nitrostat] 0.4 mg tablet, sublingual 0.4 mg sublingual Q5M PRN Patient Comments: not on med list Rx Instructions: do not exceed 3 doses per episode albuterol sulfate 90 mcg/actuation HFA aerosol inhaler 2 puff inhalation BID ondansetron HCl 4 mg tablet 4 mg PO Q6H PRN (Reason: nausea and vomiting) Patient Comments: not on med list buspirone 10 mg tablet 10 mg PO TID CertaVite Senior 0.4-300-250 mg-mcg-mcg Tablet 1 tab PO DAILY ergocalciferol (vitamin D2) [Vitamin D2] 1,250 mcg (50,000 unit) capsule 2,000 unit PO DAILY Patient Comments: not on med list Rx Instructions: [id number] acetaminophen [Tylenol] 325 mg tablet 1,000 mg PO BID olanzapine 5 mg tablet 5 mg PO DAILY clozapine 100 mg tablet 300 mg PO QPM docusate sodium [Colace] 100 mg capsule 100 mg PO BID Qty: 60 0RF budesonide-formoterol [Symbicort] 160-4.5 mcg/actuation Hfa Aerosol Inhaler 2 puff INHALATION BID Patient Comments: not on med list omeprazole 40 mg capsule,delayed release(DR/EC) 40 mg PO DAILY Qty: 90 0RF budesonide-formoterol [Symbicort] 160-4.5 mcg/actuation HFA aerosol inhaler 2 puff INHALATION BID nitrofurantoin macrocrystal 100 mg capsule 100 mg PO Q12H Qty: 10 0RF Rx Instructions: must administer with a meal/food Changed polyethylene glycol 3350 17 gram powder in packet 17 g PO BID Qty: 0 0RF Discharge Instructions Instructions: Constipation (ED), Urinary Tract Infection in Women (ED) Additional Instructions: push fluids to stay well hydrated. Referrals: Aranza Mackenzie NP [Primary Care Provider] - Discharge Data Discharge Date/Time-TO BE ENTERED AT DEPARTURE: 11/02/22 20:23 Medical Decision Making <Miguel James NP - Last Filed: 11/03/22 08:35> Patient presenting to the emergency department via EMS for chief complaint of pain. Patient was sent by intermediate staff due to intermittently going unresponsive. Patient has psychiatric disorder and does this quite often but they noted somewhat increase of symptoms compared to her normal. She has had a low oral intake of food and fluids, started new medication but discontinued it today, patient states that she is tired and having a cough chest pain vomiting patient reports that symptoms have been going on all week and started since she started the new medication.. Physical exam shows normal cardiac and respiratory exam, patient does have exaggerated emotional response, and complains that diamond rything hurts to palpation making exam difficult to fully localize patient's discomfort. Patient does have history of small bowel obstruction, dehydration, electrolyte abnormalities, heart murmur that was appreciated on exam, schizo affective disorder pancreatitis. Given multiple complaints we will check patient's labs, urinalysis, and CT imaging. Please see physician interpretation for full interpretation of EKG but upon my review patient is in sinus rhythm with no acute ischemic findings of concern. Reviewed patient's labs and CBC is overall unremarkable nondiagnostic, CMP does show a critically low potassium at 2.6 which she was given 20 mEq IV and 40 p.o., magnesium within normal range, BUN is elevated to 22 with a creatinine of 1.2 and a GFR 52. Patient is clear for CT imaging with contrast. AST shows low level at 12, negative troponin, lipase of 37, although labs nondiagnostic. Patient signed out to to Lorraine Pires NP pending CT imaging and disposition. Care of patient has been received. Patient had received fosfomycin for her urinary tract infection she will continue with prior radiation if needed for her symptoms while in the department she was experiencing frequency and urgency. Imaging also did note heavy fecal load so should receive bowel management to help with her constipation. Potassium was replaced she received 20 mEq IV and 40 p.o. Her labs should be repeated Thursday or Thursday and will be followed by primary care provider for further replacement if needed Lab Data Lab results reviewed: Yes I reviewed the patient's lab results. <Lorraine Pires NP - Last Filed: 11/02/22 22:51> Patient presenting to the emergency department via EMS for chief complaint of pain. Patient was sent by intermediate staff due to intermittently going unresponsive. Patient has psychiatric disorder and does this quite often but they noted somewhat increase of symptoms compared to her normal. She has had a low oral intake of food and fluids, started new medication but discontinued it today, patient states that she is tired and having a cough chest pain vomiting patient reports that symptoms have been going on all week and started since she started the new medication.. Physical exam shows normal cardiac and respiratory exam, patient does have exaggerated emotional response, and complains that everything hurts to palpation making exam difficult to fully localize patient's discomfort. Patient does have history of small bowel obstruction, dehydration, electrolyte abnormalities, heart murmur that was appreciated on exam, schizo affective disorder pancreatitis. Given multiple complaints we will check patient's labs, urinalysis, and CT imaging. Please see physician interpretation for full interpretation of EKG but upon my review patient is in sinus rhythm with no acute ischemic findings of concern. Reviewed patient's labs and CBC is overall unremarkable nondiagnostic, CMP does show a critically low potassium at 2.6 which she was given 20 mEq IV and 40 p.o., magnesium within normal range, BUN is elevated to 22 with a creatinine of 1.2 and a GFR 52. Patient is clear for CT imaging with contrast. AST shows low level at 12, negative troponin, lipase of 37, although labs nondiagnostic. Patient brought to [facility] [place] [facility] pending CT imaging and disposition. Care of patient has been received. Patient had received fosfomycin for her urinary tract infection she will continue with prior radiation if needed for her symptoms while in the department she was experiencing frequency and urgency. Imaging also did note heavy fecal load so should receive bowel management to help with her constipation. Potassium was replaced she received 20 mEq IV and 40 p.o. Her labs should be repeated Thursday or Thursday and will be followed by primary care provider for further replacement if needed Medical Records Medical records reviewed: Yes I reviewed the patient's medical records. Imaging Data Radiologic Study: Imaging: CT Scan Radiologist's impression: Exam(s) PROCEDURE INFORMATION: Exam: CT Abdomen And Pelvis With Contrast Exam date and time: 11/02/2022 5:06 PM Age: 57 years old Clinical indication: Patient HX: Abdominal pain, vomiting TECHNIQUE: Imaging protocol: Computed tomography of the abdomen and pelvis with contrast. COMPARISON: CT CHEST/ABD/PEL WO 01/15/2022 12:46 PM FINDINGS: Lungs: Minimal patchy kbrq-lwrqvbb-igbs-right bibasilar opacities. Liver: Fatty liver with no mass lesions. Gallbladder and bile ducts: No calcified stones. No ductal dilation. Pancreas: No ductal dilation. No masses.? Spleen: No splenomegaly or focal lesions. Adrenal glands: No mass. Kidneys and ureters: Moderately chronically atrophic right kidney with multiple chronic appearing infarcts. Moderate dilation of the patulous appearing right collecting system. Subcentimeter left nephrolithiasis is nonobstructive. No left hydronephrosis. Stomach and bowel: Large colonic stool burden. No colitis or diverticular disease. Submucosal fat deposition in the right colon, likely habitus related. No focal pathology in the small bowel. Appendix: No evidence of appendicitis. Intraperitoneal space: No free air. No significant fluid collection. Vasculature: Moderate aortoiliac atherosclerosis. Significant stenosis suspected of celiac trunk and SMA, as well as both renal arteries, could be worked up with CTA. Severe iliac athero sclerosis. No aortic aneurysm. Lymph nodes: No significantly enlarged lymph nodes. Urinary bladder: Unremarkable as visualized. Reproductive: Unremarkable as visualized. Bones/joints: Grade one anterolisthesis of L5 over S1 in the setting of pars defects. No acute fracture or subluxation. The bones are demineralized. Soft tissues: No suspicious lesions.? IMPRESSION: 1. ? Probable microatelectasis in the lung bases; consider follow-up if there is any concern for early left lower lobe pneumonia. 2. ? Right collecting system and renal disease suggests sequela of chronic reflux and or infection as above. 3. ? Subcentimeter left nephrolithiasis is nonobstructive. 4. ? Additional findings as described. Lab Data Lab results narrative: 11/02/22 13:34 Urine - Reflex from Ua Urine Culture - Pending Laboratory Tests Range/Units 11/02/22 11/02/22 11/02/22 13:13 13:13 13:34 WBC (4.4-10.8) 10^3/uL 8.13 RBC (3.93-5.22) 10^6/uL 3.76 L Hgb (11.2-15.7) g/dL 12.0 Hct (36.0-46.0) % 36.8 MCV (80-95) fL 98 H MCH (27.0-33.0) pg 31.9 MCHC (32.0-36.0) % 32.6 RDW (11.7-14.6) % 14.2 Plt Count (130-400) 10^3/uL 179 MPV (8.0-11.0) fL 10.6 Immature Gran % 0.5 Neutrophils % 60.1 Lymphocytes % 31.1 Monocytes % 7.6 Eosinophils % 0.0 Basophils % 0.7 Nucleated RBC % (0.0-0.3) % 0.0 Absolute Neutrophils (1.2-6.7) 10^3/uL 4.88 Absolute Lymphocytes (1.2-3.4) 10^3/uL 2.53 Absolute Monocytes (0.1-0.8) 10^3/uL 0.62 Absolute Eosinophils (0.0-0.7) 10^3/uL 0.00 Absolute Basophils (0.0-0.2) 10^3/uL 0.06 Sodium (136-145) mmol/L 139 Potassium (3.5-5.1) mmol/L 2.6 L* Chloride (98-107) mmol/L 98 Carbon Dioxide (21.0-32.0) mmol/L 33.4 H Anion Gap (3-11) mmol/L 7.6 BUN (7-18) mg/dL 22 H Creatinine (0.55-1.02) mg/dL 1.2 H Est GFR (CKD-EPI 2020) (mL/min/1.73m2) 52.80 Glucose (74-106) mg/dL 102 Calcium (8.5-10.1) mg/dL 8.6 Magnesium (1.8-2.4) mg/dL 2.2 Total Bilirubin (0.2-1.0) mg/dL 0.4 AST (15-37) U/L 23 ALT (14-59) U/L 12 L Alkaline Phosphatase (46-116) U/L 93 Troponin I (<or=60) ng/L < 50 Total Protein (6.4-8.2) g/dL 7.3 Albumin (3.4-5.0) g/dL 2.8 L Lipase (16-77) U/L 37 Urine Color (Yellow) Yellow Urine Clarity (Clear) Clear Urine pH (5-8) 7.0 Ur Specific [place] (1.005-1.025) 1.015 Urine Protein (Negative) mg/dL Negative Urine Ketones (Negative) mg/dL Negative Urine Blood (Negative) Trace-intact H Urine Nitrite (Negative) Negative Urine Bilirubin (Negative) Negative Urine Urobilinogen (Up to 0.2) mg/dL 0.2 Ur Leukocyte Esterase (Negative) Moderate H Urine RBC (0-2) HPF 3-5 H Urine WBC (0-5) HPF 10-20 H Ur Epithelial Cells (Negative) HPF Rare Urine Crystals (Negative) HPF Negative Urine Bacteria (Negative) HPF Moderate Urine Casts (Negative) LPF Negative Urine Mucus (Negative) Negative Ur Culture Indicated? Yes Urine Glucose (Negative) mg/dL Negative HPI <Miguel James NP - Last Filed: 11/03/22 08:35> General Mode of arrival: EMS . Date/Time Provider Initiated Documentation: 11/02/22 13:19 . Limitations to Documentation: no limitations . Information obtained by: patient, family and RN notes reviewed . History of Present Illness 57 year old F presents to the emergency department with the chief complaint of Diffuse pain, not feeling well, intermittent cough, Patient started experiencing this week(s) (1) and it has been constant. Medication worsens symptoms (New medication) . Patient did receive the following treatme nts prior to arrival, none Related Data Home Medications Medication Instructions Recorded Confirmed budesonide-formoterol HFA 160 2 puff inhalation BID 02/06/19 05/01/22 mcg-4.5 mcg/actuation aerosol inhaler (Symbicort) [id number] acid 0.4 1 tab PO DAILY 03/04/19 11/02/22 mg-lycopene 300 mcg-lutein 250 mcg tablet (CertaVite Senior) olanzapine 5 mg tablet 5 mg PO DAILY 11/15/20 11/02/22 clozapine 100 mg tablet 300 mg PO QPM 12/31/20 11/02/22 docusate sodium 100 mg capsule 100 mg PO BID #60 caps 01/07/21 11/02/22 (Colace) nitroglycerin 0.4 mg sublingual 0.4 mg sublingual Q5M PRN 01/24/21 05/01/22 tablet (Nitrostat) omeprazole 40 mg capsule,delayed 40 mg PO DAILY #90 caps 03/06/21 11/02/22 release acetaminophen 325 mg tablet 1,000 mg PO BID 05/03/21 11/02/22 (Tylenol) ondansetron HCl 4 mg tablet 4 mg PO Q6H PRN nausea and vomiting 05/31/21 05/01/22 ferrous gluconate 324 mg (37.5 mg 324 mg PO DAILY 10/30/21 11/02/22 iron) tablet magnesium chloride 64 mg 64 mg PO DAILY 10/30/21 11/02/22 (magnesium chloride) tablet,delayed release (Mag-Delay) nicotine 10 mg inhalation 1 inh inhalation 4-6XD PRN 10/30/21 05/01/22 cartridge (Nicotrol) trihexyphenidyl 2 mg tablet 2 mg PO TID 01/29/22 11/02/22 albuterol sulfate 90 mcg/actuation 2 puff inhalation BID 04/29/22 11/02/22 aerosol inhaler atorvastatin 40 mg tablet 40 mg PO QHS 04/29/22 05/01/22 buspirone 10 mg tablet 10 mg PO TID 04/29/22 11/02/22 clozapine 25 mg tablet 50 mg PO DAILY 04/29/22 05/01/22 divalproex 500 mg tablet,extended 1,500 mg PO HS 04/29/22 05/01/22 release 24 hr ergocalciferol (vitamin D2) 1,250 2,000 unit PO DAILY 04/29/22 05/01/22 mcg (50,000 unit) capsule (Vitamin D2) metformin 500 mg tablet 250 mg PO BID 04/29/22 05/01/22 potassium chloride 10 mEq See Rx Instructions PO DAILY 04/29/22 11/02/22 tablet,extended release torsemide 20 mg tablet 100 mg PO BID 04/29/22 11/02/22 levothyroxine 125 mcg capsule 125 mcg PO DAILY 05/01/22 05/01/22 budesonide-formoterol HFA 160 2 puff inhalation BID 11/02/22 11/02/22 mcg-4.5 mcg/actuation aerosol inhaler (Symbicort) nitrofurantoin macrocrystal 100 mg 100 mg PO Q12H #10 caps 11/02/22 capsule phenazopyridine 100 mg tablet 100 mg PO TID PRN 6 doses #6 tabs 11/02/22 (Pyridium) polyethylene glycol 3350 17 gram 17 g PO BID #0 ea 11/02/22 11/02/22 oral powder packet Previous Rx's Medication Instructions Recorded docusate sodium 100 mg capsule 100 mg PO BID #60 caps 01/07/21 (Colace) omeprazole 40 mg capsule,delayed 40 mg PO DAILY #90 caps 03/06/21 release nitrofurantoin macrocrystal 100 mg 100 mg PO Q12H #10 caps 11/02/22 capsule phenazopyridine 100 mg tablet 100 mg PO TID PRN 6 doses #6 tabs 11/02/22 (Pyridium) polyethylene glycol 3350 17 gram 17 g PO BID #0 ea 11/02/22 oral powder packet Allergies Allergy/AdvReac Type Severity Reaction Status Date / Time prednisone Allergy Unknown Verified 05/01/22 11:51 acetaminophen [From Percocet] Allergy Verified 05/01/22 11:51 lithium Allergy Verified 05/01/22 11:51 oxycodone [From OxyContin] Allergy Verified 05/01/22 11:51 Penicillins Allergy Verified 05/01/22 11:51 pioglitazone Allergy Verified 05/01/22 11:51 Sulfa (Sulfonamide Allergy Verified 05/01/22 11:51 Antibiotics) tramadol Allergy Verified 05/01/22 11:51 General Stated Complaint: GenMedical DIONE: 3 Review of Systems <Miguel James NP - Last Filed: 11/03/22 08:35> Constitutional Constitutional: Reports chills, Denies fever(s), Denies headache(s), Reports malaise and Reports poor appetite ENT Ears, Nose, Mouth, and Throat: Denies headache(s) and Denies sore throat Cardiovascular Cardiovascular: Reports chest pain and Denies dyspnea Respiratory Respiratory: Reports cough and Denies dyspnea Gastrointestinal Gastrointestinal: Reports abdominal pain, Reports nausea and Reports vomiting Musculoskeletal Musculoskeletal: Reports myalgias Neurologic Neurologic: Reports confusion and Denies headache(s) Psychiatric Psychiatric: Reports confusion and Reports panic attacks PFSH <Miguel James NP - Last Filed: 11/03/22 08:35> All Active Problems (Updated 11/02/22 @ 19:06 by Lorraine Pires NP) Urinary tract infection (Acute) Constipation (Acute) Coronary artery disease (Chronic) Personal history of nicotine dependence (Acute) Infected sebaceous cyst of skin (Acute) Pancreatic cyst (Acute) Aortic stenosis (Chronic) AVANI (obstructive sleep apnea) (Acute) Left bundle branch block (Acute) Per [facility] states that is not on her current list. Per Chilo states she does see a dredge worker GERD (gastroesophageal reflux disease) (Acute) Hyperlipemia (Acute) CHF (congestive heart failure) (Chronic) Diabetes mellitus type II, controlled (Acute) Hypothyroid (Chronic) COPD (chronic obstructive pulmonary disease) (Chronic) Secondary Parkinson disease (Acute) Cognitive impairment (Acute) Schizoaffective disorder (Chronic) Diastolic dysfunction (Chronic) Discharge planning issues (Acute) Apneic episode (Acute) Acute metabolic encephalopathy (Acute) Bowel obstruction (Acute) Anemia (Chronic) Chronic constipation (Acute) Neuroleptic-induced parkinsonism (Acute) Well woman exam with routine gynecological exam (Acute) Medical History Acute kidney injury Alcoholism in remission Auditory hallucinations Per [facility]TA[facility] [facility]: her baseline she has auditory hallucinations hears Satan, goes into episodes of marjan, history of being hypersexual, history of throwing items, pt. isn't allowed to have items in her room when she is manic. Bipolar 1 disorder Community acquired pneumonia COPD (chronic obstructive pulmonary disease) Dehydration Diabetic neuropathy DVT prophylaxis Electrolyte abnormality Extended spectrum beta lactamase (ESBL) resistance Heart failure Heart murmur History of alcohol abuse Hyperthyroidism Myocardial infarction 2018 per CONTACT L[facility] FITTER at [facility]- has not seen cards Other emphysema Other secondary parkinsonism Pancreatitis Partial intestinal obstruction Protein-calorie malnutrition, mild Pulmonary emphysema Rib pain on right side Schizoid personality disorder Subdural hematoma small right September 201804/10 mechanical fall Tobacco dependence Surgical History H/O abdominal surgery History of esophagogastroduodenoscopy (EGD) (~02/2021) S/P thoracotomy Social History Smoking/Tobacco Use Status: Former Tobacco Use Tobacco: How many years used: 36 Smoking risk assessment performed?: Yes Alcohol Intake: former Drug use: Current Sobriety Substance use type: does not use Details: Nicotrol inhalers Housing: intermediate current occupation: Disabled. Lives at [facility] Seatbelt use: always Do you feel safe at home: Yes Do you feel safe in your relationship?: Yes Additional Social history: Resident @ [facility] [employer] Exam <Miguel James NP - Last Filed: 11/03/22 08:35> Const General: cooperative Orientation: alert, awake and oriented x3 Resp Effort & Inspection: normal respiratory effort and able to speak in complete sentences Auscultation: clear to auscultation bilaterally Cardio Rate: regular rate Rhythm: regular rhythm Heart Sounds: murmur systolic II/ GI Palpation: soft, no hepatosplenomegaly, not firm, no guarding, no masses, no pulsatile masses, not rigid, no splenomegaly and tender (Diffuse nonfocal) Auscultation: normal bowel sounds Back/Spine/Pelvis Back: no CVA tenderness Neuro General: patient alert, patient awake, patient oriented x3, gait normal and moves all extremities Course <Miguel James NP - Last Filed: 11/03/22 08:35> Vital Signs Vital signs: Vital Signs Temperature 36.6 C 11/02/22 12:51 Pulse 75 11/02/22 12:51 Respiratory Rate 22 11/02/22 12:51 Blood Pressure 100/69 11/02/22 12:51 Pulse Oximetry 97 11/02/22 12:51 Temperature 36.6 C 11/02/22 12:51 Temperature Source Skin 11/02/22 12:51 Pulse 75 11/02/22 12:51 Respiratory Rate 18 11/02/22 13:01 Respiratory Effort Non-Labored 11/02/22 13:01 Respiratory Depth Normal 11/02/22 13:01 Respiratory Pattern Normal 11/02/22 13:01 Blood Pressure 100/69 11/02/22 12:51 Blood Pressure Position Supine 11/02/22 12:51 Pulse Oximetry 97 11/02/22 12:51 Oxygen Delivery Method Room Air 11/02/22 12:51 Oxygen Flow Rate 0 11/02/22 12:51 Pain Level 5 11/02/22 12:51 Lab/Test Results Lab/Test Results: 11/02/22 13:34 Urine - Reflex from Ua Urine Culture - Pending Laboratory Tests Range/Units 11/02/22 11/02/22 11/02/22 13:13 13:13 13:34 WBC (4.4-10.8) 10^3/uL 8.13 RBC (3.93-5.22) 10^6/uL 3.76 L Hgb (11.2-15.7) g/dL 12.0 Hct (36.0-46.0) % 36.8 MCV (80-95) fL 98 H MCH (27.0-33.0) pg 31.9 MCHC (32.0-36.0) % 32.6 RDW (11.7-14.6) % 14.2 Plt Count (130-400) 10^3/uL 179 MPV (8.0-11.0) fL 10.6 Immature Gran % 0.5 Neutrophils % 60.1 Lymphocytes % 31.1 Monocytes % 7.6 Eosinophils % 0.0 Basophils % 0.7 Nucleated RBC % (0.0-0.3) % 0.0 Absolute Neutrophils (1.2-6.7) 10^3/uL 4.88 Absolute Lymphocytes (1.2-3.4) 10^3/uL 2.53 Absolute Monocytes (0.1-0.8) 10^3/uL 0.62 Absolute Eosinophils (0.0-0.7) 10^3/uL 0.00 Absolute Basophils (0.0-0.2) 10^3/uL 0.06 Sodium (136-145) mmol/L 139 Potassium (3.5-5.1) mmol/L 2.6 L* Chloride (98-107) mmol/L 98 Carbon Dioxide (21.0-32.0) mmol/L 33.4 H Anion Gap (3-11) mmol/L 7.6 BUN (7-18) mg/dL 22 H Creatinine (0.55-1.02) mg/dL 1.2 H Est GFR (CKD-EPI 2020) (mL/min/1.73m2) 52.80 Glucose (74-106) mg/dL 102 Calcium (8.5-10.1) mg/dL 8.6 Magnesium (1.8-2.4) mg/dL 2.2 Total Bilirubin (0.2-1.0) mg/dL 0.4 AST (15-37) U/L 23 ALT (14-59) U/L 12 L Alkaline Phosphatase (46-116) U/L 93 Troponin I (<or=60) ng/L < 50 Total Protein (6.4-8.2) g/dL 7.3 Albumin (3.4-5.0) g/dL 2.8 L Lipase (16-77) U/L 37 Urine Color (Yellow) Yellow Urine Clarity (Clear) Clear Urine pH (5-8) 7.0 Ur Specific [place] (1.005-1.025) 1.015 Urine Protein (Negative) mg/dL Negative Urine Ketones (Negative) mg/dL Negative Urine Blood (Negative) Trace-intact H Urine Nitrite (Negative) Negative Urine Bilirubin (Negative) Negative Urine Urobilinogen (Up to 0.2) mg/dL 0.2 Ur Leukocyte Esterase (Negative) Moderate H Urine RBC (0-2) HPF 3-5 H Urine WBC (0-5) HPF 10-20 H Ur Epithelial Cells (Negative) HPF Rare Urine Crystals (Negative) HPF Negative Urine Bacteria (Negative) HPF Moderate Urine Casts (Negative) LPF Negative Urine Mucus (Negative) Negative Ur Culture Indicated? Yes Urine Glucose (Negative) mg/dL Negative Sign Out <Miguel James NP - Last Filed: 11/03/22 08:35> Sign Out Data: Sign Out Comment: Patient pending CT imaging reassessment and disposition. Last updated by Miguel James NP at 11/02/22 16:23
[2022-11-02] MEDS: Omnipaque 350 MG/ML 100 ML BTL IJ (16:54)
[2022-11-02] MEDS: Normal Saline - Diluent 50 ML VIAL IJ (16:55)
--- NOTE | 2022-11-02 17:55 | DI.VRAD_ITS ---
PROCEDURE INFORMATION: Exam: CT Abdomen And Pelvis With Contrast Exam date and time: 11/02/2022 5:06 PM Age: 57 years old Clinical indication: Patient HX: Abdominal pain, vomiting TECHNIQUE: Imaging protocol: Computed tomography of the abdomen and pelvis with contrast. COMPARISON: CT CHEST/ABD/PEL WO 01/15/2022 12:46 PM FINDINGS: Lungs: Minimal patchy rpdz-[id number]-lbtr-right bibasilar opacities. Liver: Fatty liver with no mass lesions. Gallbladder and bile ducts: No calcified stones. No ductal dilation. Pancreas: No ductal dilation. No masses. Spleen: No splenomegaly or focal lesions. Adrenal glands: No mass. Kidneys and ureters: Moderately chronically atrophic right kidney with multiple chronic appearing infarcts. Moderate dilation of the patulous appearing right collecting system. Subcentimeter left nephrolithiasis is nonobstructive. No left hydronephrosis. Stomach and bowel: Large colonic stool burden. No colitis or diverticular disease. Submucosal fat deposition in the right colon, likely habitus related. No focal pathology in the small bowel. Appendix: No evidence of appendicitis. Intraperitoneal space: No free air. No significant fluid collection. Vasculature: Moderate aortoiliac atherosclerosis. Significant stenosis suspected of celiac trunk and SMA, as well as both renal arteries, could be worked up with CTA. Severe iliac athero sclerosis. No aortic aneurysm. Lymph nodes: No significantly enlarged lymph nodes. Urinary bladder: Unremarkable as visualized. Reproductive: Unremarkable as visualized. Bones/joints: Grade one anterolisthesis of L5 over S1 in the setting of pars defects. No acute fracture or subluxation. The bones are demineralized. Soft tissues: No suspicious lesions. IMPRESSION: 1. Probable microatelectasis in the lung bases; consider follow-up if there is any concern for early left lower lobe pneumonia. 2. Right collecting system and renal disease suggests sequela of chronic reflux and or infection as above. 3. Subcentimeter left nephrolithiasis is nonobstructive. 4. Additional findings as described. Dictated and Authenticated by: Kristin Davison MD. Ordering:ABRAM Rivera MD
[2022-11-02] MEDS: Phenazopyridine 200 MG TAB PO (19:02)
--- NOTE | 2022-11-02 19:07 | NUR.NOTE ---
Nursing Note: this RN gave patient Bennett Galva and milk . Call light within reach at this time
[2022-11-03 06:09] VITALS: BP 116/60; PULSE 78; RESP 23; O2SAT 97
--- NOTE | 2022-11-04 09:06 | NUR.NOTE ---
Accessed chart to look up whether or not on antibiotic. Nursing Note:
== END 2022-11-02 20:23 | disposition home or self-care (01) ==
PROVIDERS: Nurse Practitioner Family; Emergency Provider Nurse Practitioner Acute Care; PCP Nurse Practitioner Gerontology
DX: R53.83 Other fatigue (principal); R07.9 Chest pain, unspecified; N39.0 Urinary tract infection, site not specified; B96.1 Klebsiella pneumoniae [K. pneumoniae] as the cause of diseases classified elsewhere; K59.00 Constipation, unspecified; R11.2 Nausea with vomiting, unspecified; E87.6 Hypokalemia
CPT/HCPCS: 80053; 83690; 87077; 93005; 96365; 96366; 96367; 96375; 99285; 74177; 81003; 81015; 83735; 84484; 85025; 87086; 87186; 93010; 99284; J0131; J0696; J2405; J3480; J3490

== ENCOUNTER 2022-11-04 18:12 | Outpatient (REF) | payer MEDICARE, MEDICAID, SELFPAY ==
[2022-11-04 17:23] LABS: Abs Immature Grans 0.03 10^3/uL (0.0-0.06); Absolute Basophil Count 0.06 10^3/uL (0.0-0.2); Absolute Lymphocyte Count 2.11 10^3/uL (1.2-3.4); Absolute Monocyte Count 0.75 10^3/uL (0.1-0.8); Absolute Neutrophil Count 5.33 10^3/uL (1.2-6.7); Basophils % 0.7; HCT 35.9 % (36.0-46.0); HGB 11.6 g/dL (11.2-15.7); Immature Grans % 0.4; Lymphocytes % 25.5; MCH 31.8 pg (27.0-33.0); MCHC 32.3 % (32.0-36.0); MCV 98 fL (80-95); MPV 11.3 fL (8.0-11.0); Monocytes % 9.1; Neutrophils % 64.3; Platelet Count 187 10^3/uL (130-400); RBC 3.65 10^6/uL (3.93-5.22); RDW 14.4 % (11.7-14.6); RDW-SD 52.2 fL; WBC 8.28 10^3/uL (4.4-10.8)
[2022-11-04 18:23] LABS: ALT 18 U/L (14-59); AST 24 U/L (15-37); Alkaline Phosphatase 98 U/L (46-116); BUN 20 mg/dL (7-18); Bilirubin, Total 0.5 mg/dL (0.2-1.0); CREATININE 1.4 mg/dL (0.55-1.02); Calcium 8.5 mg/dL (8.5-10.1); Chloride 101 mmol/L (98-107); Estimated GFR 43.88 (mL/min/1.73m2); Glucose 86 mg/dL (74-106); Sodium 142 mmol/L (136-145); Total Protein 7.2 g/dL (6.4-8.2)
[2022-11-04 18:27] LABS: Potassium 2.6 mmol/L (3.5-5.1)
== END 2022-11-04 18:13 | disposition home or self-care (01) ==
LOC: LBN 18:12
PROVIDERS: PCP Nurse Practitioner Gerontology; Visit Provider Nurse Practitioner Gerontology
DX: R63.4 Abnormal weight loss (principal); R53.83 Other fatigue; G89.4 Chronic pain syndrome; R68.89 Other general symptoms and signs; E11.9 Type 2 diabetes mellitus without complications
CPT/HCPCS: 80053; 85025

== ENCOUNTER 2022-11-06 19:48 | Outpatient (REF) | payer MEDICARE, MEDICAID, SELFPAY ==
[2022-11-06 21:31] LABS: ALT 14 U/L (14-59); AST 23 U/L (15-37); Albumin 2.8 g/dL (3.4-5.0); Alkaline Phosphatase 96 U/L (46-116); BUN 19 mg/dL (7-18); Bilirubin, Total 0.5 mg/dL (0.2-1.0); CO2 26.1 mmol/L (21.0-32.0); CREATININE 1.3 mg/dL (0.55-1.02); Calcium 8.3 mg/dL (8.5-10.1); Estimated GFR 47.96 (mL/min/1.73m2); Glucose 145 mg/dL (74-106); Total Protein 6.8 g/dL (6.4-8.2)
[2022-11-06 21:51] LABS: Anion Gap 9.9 mmol/L (3-11); Chloride 98 mmol/L (98-107); Sodium 134 mmol/L (136-145)
[2022-11-06 21:59] LABS: Potassium 4.7 mmol/L (3.5-5.1)
== END 2022-11-06 19:49 | disposition home or self-care (01) ==
LOC: LBN 19:48
PROVIDERS: PCP Nurse Practitioner Gerontology; Visit Provider Nurse Practitioner Gerontology
DX: E87.6 Hypokalemia (principal); R68.89 Other general symptoms and signs; E11.9 Type 2 diabetes mellitus without complications; D50.9 Iron deficiency anemia, unspecified; R53.82 Chronic fatigue, unspecified
CPT/HCPCS: 80053

== ENCOUNTER 2022-11-11 20:12 | Outpatient (REF) | payer MEDICARE, MEDICAID, SELFPAY ==
[2022-11-11 19:00] LABS: ALT 13 U/L (14-59); AST 22 U/L (15-37); Albumin 2.6 g/dL (3.4-5.0); Alkaline Phosphatase 104 U/L (46-116); Anion Gap 7.5 mmol/L (3-11); BUN 18 mg/dL (7-18); Bilirubin, Total 0.4 mg/dL (0.2-1.0); CO2 28.5 mmol/L (21.0-32.0); CREATININE 1.3 mg/dL (0.55-1.02); Calcium 8.3 mg/dL (8.5-10.1); Chloride 101 mmol/L (98-107); Estimated GFR 47.96 (mL/min/1.73m2); Glucose 169 mg/dL (74-106); Potassium 4.7 mmol/L (3.5-5.1); Sodium 137 mmol/L (136-145); Total Protein 6.9 g/dL (6.4-8.2)
== END 2022-11-11 20:13 | disposition home or self-care (01) ==
LOC: LBN 20:12
PROVIDERS: PCP Nurse Practitioner Gerontology; Visit Provider Nurse Practitioner Gerontology
DX: E87.6 Hypokalemia (principal); E11.9 Type 2 diabetes mellitus without complications
CPT/HCPCS: 80053

== ENCOUNTER → 2022-11-19 00:54 | Outpatient (CLI) | payer MEDICARE, MEDICAID, SELFPAY ==
--- NOTE | 2022-11-19 | DI.CT_ITS ---
Exam(s) CT HEAD WO EXAM: CT HEAD WO CLINICAL HISTORY: POSSIBLE TIA, LT SIDED WEAKNESS. TECHNIQUE: Imaging Protocol: Axial computed tomography images with coronal and sagittal reformatted images were created and reviewed COMPARISON: CT CT HEAD CERVICAL SPINE WO from 11/15/2020 FINDINGS: There are no skull fractures. There is no fluid in the visualized paranasal sinuses. There is no evidence of intracranial hemorrhage, mass effect, or shift of midline structures. There are no extra-axial fluid collections. The ventricles are not enlarged or shifted and there is no blo od within the ventricular system nor within the basal cisterns. Heavy calcification is noted in the left vertebral artery skull base, indicating plaque at this level . Some lesser calcification in the right vertebral artery. Mural calcifications noted within both i nternal carotid arteries within the cavernous sinuses. IMPRESSION: No acute intracranial findings on this noninfused CT scan of the brain. Vascular calcifications the skull base as described above, indicating atherosclerotic involvement. RADIATION DOSE DELIVERED: 690.5mGy.cm Total DLP DATA REPOSITORY: All CT scans at this facility are submitted to the National Radiology Data Registry (NRDR) Dose Index Registry (DIR) with the [employer] ([employer]). RADIATION OPTIMIZATION: All CT scans at this facility use at least one of these dose optimization te chniques: automated exposure control; mA and/or kV adjustment per patient size (includes targeted exa ms where dose is matched to clinical indication); or iterative reconstruction.
== END ==
PROVIDERS: PCP Nurse Practitioner Gerontology; Visit Provider Nurse Practitioner Gerontology
DX: I65.01 Occlusion and stenosis of right vertebral artery (principal); G81.92 Hemiplegia, unspecified affecting left dominant side
CPT/HCPCS: 70450

== ENCOUNTER 2022-11-19 16:57 | Outpatient (REF) | payer MEDICARE, MEDICAID, SELFPAY ==
[2022-11-19 18:17] LABS: Abs Immature Grans 0.05 10^3/uL (0.0-0.06); Absolute Basophil Count 0.03 10^3/uL (0.0-0.2); Absolute Eosinophil Count 0.14 10^3/uL (0.0-0.7); Absolute Lymphocyte Count 2.11 10^3/uL (1.2-3.4); Absolute Monocyte Count 0.45 10^3/uL (0.1-0.8); Absolute Neutrophil Count 3.52 10^3/uL (1.2-6.7); Basophils % 0.5; Eosinophils % 2.2; HCT 35.1 % (36.0-46.0); HGB 11.1 g/dL (11.2-15.7); Immature Grans % 0.8; Lymphocytes % 33.5; MCHC 31.6 % (32.0-36.0); MCV 101 fL (80-95); MPV 11.8 fL (8.0-11.0); Monocytes % 7.1; Neutrophils % 55.9; Platelet Count 125 10^3/uL (130-400); RBC 3.47 10^6/uL (3.93-5.22); RDW 13.9 % (11.7-14.6); RDW-SD 52.4 fL
[2022-11-19 18:21] LABS: ALT 10 U/L (14-59); AST 20 U/L (15-37); Albumin 2.4 g/dL (3.4-5.0); Alkaline Phosphatase 91 U/L (46-116); Anion Gap 7.1 mmol/L (3-11); BUN 21 mg/dL (7-18); Bilirubin, Total 0.3 mg/dL (0.2-1.0); CO2 28.9 mmol/L (21.0-32.0); CREATININE 1.2 mg/dL (0.55-1.02); Calcium 8.1 mg/dL (8.5-10.1); Chloride 103 mmol/L (98-107); Glucose 198 mg/dL (74-106); Potassium 4.6 mmol/L (3.5-5.1); Sodium 139 mmol/L (136-145); Total Protein 6.4 g/dL (6.4-8.2)
== END 2022-11-19 16:58 | disposition home or self-care (01) ==
LOC: LBN 16:57
PROVIDERS: PCP Nurse Practitioner Gerontology; Visit Provider Nurse Practitioner Gerontology
DX: R13.14 Dysphagia, pharyngoesophageal phase (principal); R53.82 Chronic fatigue, unspecified; R11.2 Nausea with vomiting, unspecified; R60.0 Localized edema; I51.9 Heart disease, unspecified
CPT/HCPCS: 80053; 85025

== ENCOUNTER → 2022-11-21 10:25 | Outpatient (BNVA) | payer MEDICARE, MEDICAID, SELFPAY | PROVIDERS: PCP Nurse Practitioner Gerontology; Referring Provider Nurse Practitioner Gerontology; Visit Provider Surgery | DX: R13.10 Dysphagia, unspecified (principal); R63.4 Abnormal weight loss | CPT/HCPCS: 99213 ==

== ENCOUNTER 2022-12-03 08:06 | Day surgery (SDC) | payer MEDICARE, MEDICAID, SELFPAY ==
--- NOTE | 2022-12-03 08:10 | PGE_ITS ---
Date of Service Date of service: 12/03/22 Time of Service: 08:52 Assessment and Plan Assessment and plan (1) Dysphagia: Status: Resolved Assessment and plan: Ms Shook is a 57-year-old female who comes in with her caregiver from the [facility] to discuss having another upper endoscopy done.? She has the exact symptoms as she did back in 2020.? Her primary care physician's concern is that she is unable to determine whether her weight loss and dysphagia are due to some new pathology as she does have a history of smoking and heavy alcohol abuse in the past or whether it is due to her psychiatric issues.? The patient did do well last time with EGD.? The patient does sign for herself.? I explained the procedure in detail as well as the possible complications.? She seemed to un derstand the complications and the fact that if there is an injury to her esophagus by the camera that she may need to be transferred and be in the hospital for a while.? She is agreeing at this time to proceed with EGD.? Risks, benefits and complications have been reviewed. Complications include but are not limited to bleeding, pain, perforation, sore throat, aspiration, and adverse reaction to the medications.? Questions were entertained and answered to their satisfaction and they wished to proceed. No guarantees were given or implied. Proceed with EGD. Qualifiers: Dysphagia type: unspecified Qualified Code(s): R13.10 - Dysphagia, unspecified (2) Weight loss: Status: Acute (3) GERD (gastroesophageal reflux disease): Status: Acute Subjective Subjective Interval history since last seen: Danette was seen in [facility] today with her caregiver. She has no new complaints at this time. We discussed the procedure again and the possible complications. She seemed to understand the possible complications and risks of the procedure. Time Spent with Patient Time Spent with Patient: <25 minutes Time was spent: counseling the patient
--- NOTE | 2022-12-03 08:19 | ENDO_ITS ---
Date of service: 12/03/22 Time of Service: 10:02 Endoscopy Report DATE OF PROCEDURE: 12/03/22 PRE-OP DIAGNOSIS: Dysphagia POST-OP DIAGNOSIS: other (gastritis, retained food in stomach, gastric polyp) PROCEDURE: EGD with biopsies SURGEON: Ángela Mcgregor ANESTHESIA TYPE: General:No Airway ESTIMATED BLOOD LOSS: 3 PATHOLOGY: other (Bx of stomach and polyp) COMPLICATIONS: None DISPOSITION: same day INDICATIONS: Ms Shook is a 57-year-old female who comes in with her caregiver from the [facility] to discuss having another upper endoscopy done.? She has the exact symptoms as she did back in 2020.? Her primary care physician's concern is that she is unable to determine whether her weight loss and dysphagia are due to some new pathology as she does have a history of smoking and heavy alcohol abuse in the past or whether it is due to her psychiatric issues.? The patient did do well last time with EGD.? The patient does sign for herself.? I explained the procedure in detail as well as the possible complications.? She seemed to understand the complications and the fact that if there is an injury to her esophagus by the camera that she may need to be transferred and be in the hospital for a while.? She is agreeing at this time to proceed with EGD.? Risks, benefits and complications have been reviewed. Complications include but are not limited to bleeding, pain, perforation, sore throat, aspiration, and adverse reaction to the medications.? Questions were entertained and answered to their satisfaction and they wished to proceed. No guarantees were given or implied. Proceed with EGD. FINDINGS: inflammation of the stomach. Polyp in the antrum ? adenoma Retained food in the stomach and esophagus PROCEDURE DESCRIPTION: After informed consent was obtained the patient was take to the procedure room and placed in a supine position. Monitors were applied and a time out was done. The patients name, date of , procedure type, allergies to medications and metal in their body was reviewed. A bite block was placed and the patient was sedated. Once sedated and comfortable the gastroscope was advanced through the oropharynx which was grossly normal into the esophagus. The proximal and mid- esophagus were normal. In the distal esophagus there was no inflammation noted. The scope was advanced into the stomach and through the pylorus into the 3rd portion of the duodenum. The duodenum was noted to be normal. There was some retained food in the duodenum. The scope was retracted back into the stomach a nd biopsies were done to rule out H. pylori. There was one ulcer which was biopsied. There was a solitary polyp in the antrum concerning for adenoma. The scope was retroflexed. The cardia and fundus were noted to be normal. There was no hiatal hernia noted. The scope was retracted back into the esophagus. The Z line was regular. The GE junction was at 35 cm. The scope was removed and the patient was woken up and taken back to [facility] in stable condition.
--- NOTE | 2022-12-03 08:20 | W.PM.DSUDISC ---
Date of service: 12/03/22 Time of Service: 10:49 Discharge Plan Disposition Patient Disposition: Home Condition: Stable Discharge Details Reason For Visit: egd Attending Provider: Ángela Mcgregor Primary Care Provider: Aranza Mackenzie Home Meds and New Rx's Prescriptions: Continued levothyroxine 125 mcg capsule 100 mcg PO DAILY Patient Comments: not on med list trihexyphenidyl 2 mg tablet 2 mg PO TID clozapine 25 mg tablet 50 mg PO BID Patient Comments: not on med list Nicotrol 10 mg cartridge 1 inh inhalation 4-6XD PRN Patient Comments: not on med list lidocaine (PF) 10 mg/mL (1 %) solution 5 ml intradermal ONCE Qty: 5 0RF Patient Comments: not on med list torsemide 20 mg tablet 100 mg PO BID Patient Comments: not on med list Mag-Delay 64 mg tablet,delayed release (DR/EC) 64 mg PO BID atorvastatin 40 mg tablet 40 mg PO QHS Patient Comments: not on med list divalproex 500 mg tablet extended release 24 hr 1,500 mg PO HS Patient Comments: not on med list budesonide-formoterol [Symbicort] 160-4.5 mcg/actuation HFA aerosol inhaler 2 puff inhalation BID nitroglycerin [Nitrostat] 0.4 mg tablet, sublingual 0.4 mg sublingual Q5M PRN Patient Comments: not on med list Rx Instructions: do not exceed 3 doses per episode albuterol sulfate 90 mcg/actuation HFA aerosol inhaler 2 puff inhalation BID carboxymethylcellulose sodium [Refresh Tears] 0.5 % drops 1 drp ophthalmic (eye) TID mirtazapine 15 mg tablet 15 mg PO QHS dextromethorphan-guaifenesin [Safe Tussin DM] 10-100 mg/5 mL liquid 10 ml PO Q4H PRN sennosides-docusate sodium [Stool Softener-Laxative] 8.6-50 mg tablet 1 tab-cap PO DAILY bisacodyl 10 mg suppository 10 mg ND ONCE PRN Rx Instructions: 1 suppository per rectum as needed for no bowel movement in 4 days ipratropium-albuterol 0.5 mg-3 mg(2.5 mg base)/3 mL solution for nebulization 3 ml inhalation TID Patient Comments: and as needed q4h buspirone 10 mg tablet 10 mg PO TID acetaminophen [Tylenol] 325 mg tablet 1,000 mg PO BID olanzapine 5 mg tablet 5 mg PO DAILY clozapine 100 mg tablet 300 mg PO BID omeprazole 40 mg capsule,delayed release(DR/EC) 40 mg PO DAILY Qty: 90 0RF polyethylene glycol 3350 17 gram powder in packet 17 g PO BID Qty: 0 0RF megestrol 400 mg/10 mL (40 mg/mL) Suspension 800 mg PO DAILY lidocaine [Salonpas (lidocaine)] 4 % Adhesive Patch,Medicated 1 patch TOPICAL DAILY Discharge Instructions Instructions: Gastritis (DC), Diet for Stomach Ulcers and Gastritis (ED), Gastric Polyps (DC) Additional Instructions: Findings: Inflammation of the stomach with an ulcer One solitary polyp, ? adenoma Some food noted in the stomach and small bowel, ? gastroparesis. Would maybe benefit from Gastric emptying study which her PCP can order. medications: Increase omeprazole to 40 mg 2 x a day for 30 days then back down to 40 mg daily. Other: results of the biopsies will be communicated to the [facility] with final recommendations Please call if you develop: fevers >101.5 Nausea or Vomiting Abdominal pain that is not transient Rectal bleeding that is more then a tbsp A hard abdomen and inability to pass gas DAY SURGERY UNIT POST ENDOSCOPY INSTRUCTIONS Instructions for everyone who is given Anesthesia: For your safety, please do the following for the next 24 Hours: a. Do not drive or operate dangerous equipment b. Do not drink alcohol beverages or use any recreational drugs for the first 24 hours or while taking pain medications. The medications in your body may have a reaction that can be dangerous. c. Do not make any important decisions or sign any important papers 1. Generally there are no restrictions on your activity after a day or so has gone by, but you may feel a bit fatigued for a few days. 2. After you arrive home you may have a light meal and return to a normal diet as you can tolerate it without feeling sick to your stomach. 3. After surgery, you may feel pain or discomfort. This should be only transient, but if it persists please contact your doctor. 4. If there are any questions regarding the findings of your procedure, please feel free to contact your doctor. 6. If you are unable to contact your doctor with a problem, contact the hospital at [phone]. 0. Continue all your regular medications unless directed otherwise. I understand the above instructions and have no questions. Signature of Patient or Responsible Adult Escort Date/Time Name of Responsible Adult Escort Signature of Nurse Date/Time Stand Alone Forms: Anesthesia Discharge Inst., Sima Sarah (DSU) Activity:: Activity as Tolerated Diet:: low acid Discharge Orders Discharge Orders: Discharge Order (Routine); Ordered 12/03/22 Ordered By: Ángela Mcgregor DS: Diagnosis Discharge Diagnosis (1) Dysphagia: Status: Resolved Asessment and Plan: Patient is seen and examined after their endoscopy. Patient has minimal sore throat. They have been able to tolerate liquids. They do not have any Nausea or Vomiting. They are not having any chest pain or shortness of breath. They have been able to pass gas and are not having any abdominal pain or distention. they have not vomited any blood. The vital signs have been stable-see nursing notes. We discussed findings on their endoscopy We reviewed the importance of lifestyle modifications- see diet recommendations We reviewed any new medications that the patient may be prescribed- see medicine reconciliation. Patient will either be sent a letter with the biopsy results or follow up in the office- see discharge instructions Patient was given explicit instructions for emergency follow up post endoscopy- see discharge instructions Patient verbalized understanding and was discharged in stable and satisfactory condition. See nursing notes. (2) Weight loss: Status: Acute (3) GERD (gastroesophageal reflux disease): Status: Acute
[2022-12-03 08:35] VITALS: BP 102/67; PULSE 94; RESP 19; TEMP 36.4; O2SAT 100
--- NOTE | 2022-12-03 08:44 | ANES.PREOP_ITS ---
General Info Date of Service Date Performed: 12/03/22 Height: 5 ft 1 in Weight: 64.4 kg Body Mass Index (BMI): 26.8 Surgical Procedure: Operation Date: 12/03/22 09:05 Proposed Procedure Side Surgeon p Gastroscopy Ángela Mcgregor MD Meds Allergies and Home Medications Allergies Allergy/AdvReac Type Severity Reaction Status Date / Time prednisone Allergy Unknown Verified 12/03/22 08:26 acetaminophen [From Percocet] Allergy Verified 12/03/22 08:26 lithium Allergy Verified 12/03/22 08:26 oxycodone [From OxyContin] Allergy Verified 12/03/22 08:26 Penicillins Allergy Verified 12/03/22 08:26 pioglitazone Allergy Verified 12/03/22 08:26 Sulfa (Sulfonamide Allergy Verified 12/03/22 08:26 Antibiotics) tramadol Allergy Verified 12/03/22 08:26 Home Medication Medication Instructions Recorded olanzapine 5 mg tablet 5 mg PO DAILY 11/15/20 nitroglycerin 0.4 mg sublingual 0.4 mg sublingual Q5M PRN 01/24/21 tablet (Nitrostat) omeprazole 40 mg capsule,delayed 40 mg PO DAILY #90 caps 03/06/21 release acetaminophen 325 mg tablet 1,000 mg PO BID 05/03/21 (Tylenol) nicotine 10 mg inhalation 1 inh inhalation 4-6XD PRN 10/30/21 cartridge (Nicotrol) trihexyphenidyl 2 mg tablet 2 mg PO TID 01/29/22 albuterol sulfate 90 mcg/actuation 2 puff inhalation BID 04/29/22 aerosol inhaler atorvastatin 40 mg tablet 40 mg PO QHS 04/29/22 buspirone 10 mg tablet 10 mg PO TID 04/29/22 divalproex 500 mg tablet,extended 1,500 mg PO HS 04/29/22 release 24 hr torsemide 20 mg tablet 100 mg PO BID 04/29/22 polyethylene glycol 3350 17 gram 17 g PO BID #0 ea 11/02/22 oral powder packet bisacodyl 10 mg rectal suppository 10 mg IL ONCE PRN 11/05/22 carboxymethylcellulose sodium 0.5 1 drp ophthalmic (eye) TID 11/05/22 % eye drops (Refresh Tears) clozapine 100 mg tablet 300 mg PO BID 11/05/22 clozapine 25 mg tablet 50 mg PO BID 11/05/22 dextromethorphan-guaifenesin 10 10 ml PO Q4H PRN 11/05/22 mg-100 mg/5 mL oral liquid (Safe Tussin DM) ipratropium 0.5 mg-albuterol 3 mg 3 ml inhalation TID 11/05/22 (2.5 mg base)/3 mL nebulization soln levothyroxine 125 mcg capsule 100 mcg PO DAILY 11/05/22 magnesium chloride 64 mg 64 mg PO BID 11/05/22 (magnesium chloride) tablet,delayed release (Mag-Delay) mirtazapine 15 mg tablet 15 mg PO QHS 11/05/22 sennosides 8.6 mg-docusate sodium 1 tab-cap PO DAILY 11/05/22 50 mg tablet (Stool Softener-Laxative) budesonide-formoterol HFA 160 2 puff inhalation BID 11/21/22 mcg-4.5 mcg/actuation aerosol inhaler (Symbicort) lidocaine 4 % topical patch 1 patch topical DAILY 12/01/22 (Salonpas (lidocaine)) megestrol 400 mg/10 mL (40 mg/mL) 800 mg PO DAILY 12/01/22 oral suspension Current Visit Medications: Current Medications Generic Name Dose Route Start Last Admin Trade Name Freq PRN Reason Stop Dose Admin Ringer's Solution 1,000 mls @ 80 mls/hr 12/03/22 06:00 IV 01/01/23 23:59 INFUSION [facility] IV Miscellaneous Supplies 1 each 12/03/22 06:00 Iv Access IV 01/01/23 23:59 DIRECTED [facility] Ondansetron HCl 4 mg 12/03/22 08:21 Ondansetron 4 Mg/2 Ml Vial IVP 01/02/23 08:20 Q4H PRN PRN Nausea / Vomiting Sodium Chloride 0 ml 12/03/22 06:00 Normal Saline Flush 10 Ml Syr IV 01/01/23 23:59 PRN PRN Sodium Chloride 0 ml 12/03/22 06:00 Normal Saline 10 Ml Vial IJ 01/01/23 23:59 DIRECTED PRN Sterile Water 0 ml 12/03/22 06:00 Water,Injection,Sterile 10 Ml Vial IJ 01/01/23 23:59 DIRECTED PRN PFSH Active Problems Active Problems: Problem Status Onset Code Weight loss R63.4 Nicotine dependence, cigarettes, uncomplicated F17.210 Pulmonary emphysema J43.9 Coronary artery disease I25.10 Personal history of nicotine dependence Z87.891 Infected sebaceous cyst of skin L72.3, L08.9 Pancreatic cyst K86.2 Aortic stenosis I35.0 AVANI (obstructive sleep apnea) G47.33 Left bundle branch block I44.7 GERD (gastroesophageal reflux disease) K21.9 Hyperlipemia E78.5 CHF (congestive heart failure) I50.9 Diabetes mellitus type II, controlled E11.9 Hypothyroid E03.9 Falls frequently R29.6 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 Cognitive impairment R41.89 Schizoaffective disorder F25.9 Diastolic dysfunction I51.89 Discharge planning issues Z02.9 Dysphagia R13.10 Apneic episode R06.81 Acute metabolic encephalopathy G93.41 Bowel obstruction K56.609 Small bowel obstruction K56.609 Anemia D64.9 Chronic constipation K59.09 Neuroleptic-induced parkinsonism G21.11 Well woman exam with routine gynecological exam Z01.419 Medical History Medical History Acute kidney injury Alcoholism in remission Auditory hallucinations Per [facility] LEMON PICKER: her baseline she has auditory hallucinations hears Satan, goes into episodes of marjan, history of being hypersexual, history of throwing items, pt. isn't allowed to have items in her room when she is manic. Bipolar 1 disorder Community acquired pneumonia COPD (chronic obstructive pulmonary disease) Dehydration Diabetic neuropathy DVT prophylaxis Electrolyte abnormality Extended spectrum beta lactamase (ESBL) resistance Heart failure Heart murmur History of alcohol abuse Hyperthyroidism Myocardial infarction 2018 per LEMON PICKER at [facility]- has not seen cards Other emphysema Other secondary parkinsonism Pancreatitis Partial intestinal obstruction Protein-calorie malnutrition, mild Rib pain on right side Schizoid personality disorder Subdural hematoma small right September 2018 2/2 mechanical fall Tobacco dependence Surgical History Surgical History H/O abdominal surgery History of esophagogastroduodenoscopy (EGD) (~02/2021) S/P thoracotomy Tobacco Smoking/Tobacco Use Status: Former Tobacco Use Alcohol Alcohol Intake: former Substance Use Substance use: Current Sobriety Substance use type: does not use Details: Nicotrol inhalers Vital Signs and Lab Results Vital Signs Most Recent Vital Signs in EMR: Most Recent Vital Signs Temp Pulse Resp BP Pulse Ox 36.4 C L 94 H 19 102/67 100 12/03/22 08:35 12/03/22 08:35 12/03/22 08:35 12/03/22 08:35 12/03/22 08:35 Point of Care Results Point of Care Results: Finger Stick Blood Glucose 178 12/03/22 08:28 Lab Results Blood Type / Crossmatch: No Data to Display Complete Blood Count: White Blood Count 6.30 10^3/uL (4.4-10.8) 11/19/22 10:20 Red Blood Count 3.47 10^6/uL (3.93-5.22) L 11/19/22 10:20 Hemoglobin 11.1 g/dL (11.2-15.7) L 11/19/22 10:20 Hematocrit 35.1 % (36.0-46.0) L 11/19/22 10:20 Platelet Count 125 10^3/uL (130-400) L 11/19/22 10:20 Complete Metabolic Panel: Sodium 139 mmol/L (136-145) 11/19/22 10:20 Potassium 4.6 mmol/L (3.5-5.1) 11/19/22 10:20 Chloride 103 mmol/L (98-107) 11/19/22 10:20 Carbon Dioxide 28.9 mmol/L (21.0-32.0) 11/19/22 10:20 BUN 21 mg/dL (7-18) H 11/19/22 10:20 Creatinine 1.2 mg/dL (0.55-1.02) H 11/19/22 10:20 Est GFR (CKD-EPI 2020) 52.80 (mL/min/1.73m2) 11/19/22 10:20 Calcium 8.1 mg/dL (8.5-10.1) L 11/19/22 10:20 Albumin 2.4 g/dL (3.4-5.0) L 11/19/22 10:20 Glucose 198 mg/dL (74-106) H 11/19/22 10:20 Liver Function Panel: Alanine Aminotransferase (ALT/SGPT) 10 U/L (14-59) L 11/19/22 1 0:20 Aspartate Amino Transf (AST/SGOT) 20 U/L (15-37) 11/19/22 10:20 Coagulation Panel: No Data to Display Cardiac Panel: No Data to Display Arterial Blood Gas: No Data to Display Venous Blood Gas: No Data to Display Pancreas Panel: No Data to Display Thyroid Panel: No Data to Display Infectious Disease: No Data to Display Blood Cultures: No Data to Display Toxicology Panel: No Data to Display Imaging and Studies Imaging and Studies Study information below may be from another EMR and interpreted by another provider. Please see original notes in EMR for more complete details. EKG Summary: Conclusion Sinus rhythm...normal P axis Left bundle branch block. ST elevation secondary to IVCD, similar to prev 12/31/20 Echocardiogram Summary: Date of Exam: 06/06/21Sex: F Admission Date: 06/06/21 : 1965 Age: 55 APPROVED REPORT EXAM: Comprehensive 2D, Doppler, and color-flow Echocardiogram Patient Location: Out-Patient Stick Puller: Zaida Hassan RDCS (AE) Indications: SOB, LBBB Other Information Study Quality: Fair. Technically limited study due to body habitus, inability to position patient. Conclusion Normal left ventricular wall thickness and chamber size. Estimated ejection fraction is 55%. Septal motion is consistent with LBBB Normal right ventricular size and systolic function Both atria are normal in size Aortic valve is calcified with mild aortic stenosis. Peak gradient is 31, mean 19 mmHg. Calculated aortic valve area is 1.09 cm??. There is trace aortic regurgitation Mitral annular calcification with moderate mitral regurgitation Normal tricuspid valve with mild regurgitation. Estimated right ventricular systolic pressure is 30 mmHg Pulmonary Function Summary: Date of service: 02/13/22 Time of Service: 13:07 Pulmonary Function Test Result Requesting Provider Anay Indications: COPD/cough Interpretation Spirometry: There is no airflow limitation. There is no significant bronchodilator response. The FVC is low. Lung Volumes: Normal lung volumes Diffusion Capacity: There is a reduced diffusion. Airway Pressure: Increased airways resistance. Impression No airflow obstruction. There is a reduced diffusion and an increased airways resistance. The diffusion may be decreased due to emphysema (without COPD), pulmonary vascular disease or ILD. The increased airways resistance could be seen in asthma. Clinical Correlation therefore is recommended. Anesthesia Assessment and Plan Anesthesia History Personal History: No History of Anesthesia Complications Family History: Family History Unknown Exercise Tolerance Exercise Tolerance: Metabolic Equivalents>4 Pertinent Negatives Pertinent Negatives: No Symptoms of GERD Cardiac & Pulmonary Exam Cardiac Exam: Normal S1/S2 Heart Sounds Pulmonary Exam: Clear Bilateral Breath Sounds Implantable Cardiac Device Does patient have a Pacemaker or an ICD?: No Airway Exam Known Difficult Airway: No Mallampati Class: 2 Mouth Opening: Normal (> 3cm) Thyromental Distance: Greater than 3 cm Neck Range of Motion: Full ROM Neck Circumference: Normal Teeth Condition: Edentulous ASA Classification ASA Score: ASA 3 Emergency Case?: No NPO Status NPO Status: NPO Clears >2 hours, Solids >8 hours Anesthesia Plan Resuscitation Status: Full Code Anesthesia Technique: General Anesthesia Airway Planned: Natural Airway Monitors Used: Standard Monitors
[2022-12-03 08:47] VITALS: BMI 26.8
[2022-12-03] MEDS: Lactated Ringers 1,000 ML 80 ML IV (09:32)
--- NOTE | 2022-12-03 09:50 | STOM_PTH ---
PATIENT: Danette Shook LOC: [facility] U#:[id number] AGE/SX: 57/F ROOM: RE12/03/[address]: Ángela Mcgregor MD : 1965 BED: DIS: 12/03/2022 SPEC #: [id number] RECD: 12/03/22 12:52 STATUS: RONALDDolly RE #: [id number] PINEDA: 12/03/22 09:[address]: Ángela Mcgregor DEPT: Surgical Specimen RECD BY: Anayeli Palacios ENTERED: 12/03/22 12:53 SP TYPE: STOMACH OTHR DR: April Mackenzie, JULI Tissues: 1 - STOMACH BIOPSY 2 - STOMACH BIOPSY 3 - STOMACH BIOPSY Procedures: GROSS AND MICRO LEVEL 4 Comments: [id number]
[2022-12-03 10:09] VITALS: BP 109/60; PULSE 82; RESP 24; TEMP 36; O2SAT 100
--- NOTE | 2022-12-03 10:18 | W.ANESPOSTOP ---
Postoperative Evaluation Date, Time and Location Date Performed: 12/03/22 Time Performed: 10:18 Patient Location: Day Surgery Unit Vital Signs Most Recent Imported Vital Signs: Most Recent Vital Signs Temp Pulse Resp BP Pulse Ox 36.0 C L 82 24 109/60 100 12/03/22 10:09 12/03/22 10:09 12/03/22 10:09 12/03/22 10:09 12/03/22 10:09 Pain Score Most Recent Pain Score: Most Recent Pain Score Pain Level 0 12/03/22 10:09 Assessment Mental Status: Awake (Alert & Oriented to Patient Baseline) Airway and Respiratory Function: Patent airway with normal (patient baseline) respiratory exam Cardiovascular Function: Hemodynamically Stable Hydration Status: Adequately Hydrated Nausea & Vomiting: No Nausea or Vomiting Pain: Pt. Denies Any Pain Peripheral Nerve Block: Patient did not receive a nerve block
[2022-12-03 10:38] VITALS: BP 114/75; PULSE 88; RESP 24; TEMP 36.4; O2SAT 100
== END 2022-12-03 10:55 | disposition home or self-care (01) ==
PROVIDERS: PCP Nurse Practitioner Gerontology; Visit Provider Surgery
PROC: 0DJ68ZZ Inspection of Stomach, Via Natural or Artificial Opening Endoscopic (ICD-10-PCS; CPT 43235; principal; 2022-12-03 09:00)
DX: R13.10 Dysphagia, unspecified (principal); R63.4 Abnormal weight loss; K21.9 Gastro-esophageal reflux disease without esophagitis; K31.7 Polyp of stomach and duodenum; K29.70 Gastritis, unspecified, without bleeding; K25.9 Gastric ulcer, unspecified as acute or chronic, without hemorrhage or perforation; K31.89 Other diseases of stomach and duodenum
CPT/HCPCS: 43239; 88305; J2704

== ENCOUNTER → 2022-12-18 13:41 | Outpatient (BNVA) | payer MEDICARE, MEDICAID, SELFPAY | PROVIDERS: PCP Nurse Practitioner Gerontology; Referring Provider Nurse Practitioner Gerontology; Visit Provider Psychiatry & Neurology Neurology | DX: R29.2 Abnormal reflex (principal); Z87.820 Personal history of traumatic brain injury; G21.9 Secondary parkinsonism, unspecified; E11.42 Type 2 diabetes mellitus with diabetic polyneuropathy; R41.89 Other symptoms and signs involving cognitive functions and awareness; R29.6 Repeated falls; G21.19 Other drug induced secondary parkinsonism; G21.11 Neuroleptic induced parkinsonism; J44.9 Chronic obstructive pulmonary disease, unspecified | CPT/HCPCS: 99215 ==

== ENCOUNTER 2022-12-24 17:27 | Outpatient (REF) | payer MEDICARE, MEDICAID, SELFPAY ==
[2022-12-24 17:43] LABS: Bilirubin Negative (Negative); Blood Trace-intact (Negative); Clarity Sl Cloudy (Clear); Glucose 100 mg/dL (Negative); Ketones Negative (Negative); Leukocyte Esterase Small (Negative); Nitrite Negative (Negative); Specific Gravity 1.015 (1.005-1.025); Urobilinogen 0.2 mg/dL (Up to 0.2); pH 5.5 (5-8)
[2022-12-24 17:45] LABS: Abs Immature Grans 0.08 10^3/uL (0.0-0.06); Absolute Basophil Count 0.04 10^3/uL (0.0-0.2); Absolute Monocyte Count 0.75 10^3/uL (0.1-0.8); Basophils % 0.3; HCT 36.1 % (36.0-46.0); HGB 11.9 g/dL (11.2-15.7); Immature Grans % 0.7; Lymphocytes % 24.3; MCH 32.2 pg (27.0-33.0); MCV 98 fL (80-95); MPV 12.3 fL (8.0-11.0); Monocytes % 6.4; Neutrophils % 68.3; Platelet Count 166 10^3/uL (130-400); RDW 13.5 % (11.7-14.6); RDW-SD 48.3 fL; WBC 11.71 10^3/uL (4.4-10.8)
[2022-12-24 17:54] LABS: Absolute Lymphocyte Count 2.85 10^3/uL (1.2-3.4)
[2022-12-24 18:00] LABS: Bacteria Many HPF (Negative); C & S Indicated? C&S Done As Ordered; Crystals Negative HPF (Negative); Epithelial Cells Rare HPF (Negative); Mucus Negative (Negative); WBC >50 HPF (0-5)
[2022-12-24 18:02] LABS: Magnesium 2.1 mg/dL (1.8-2.4); NT-proBNP 11492 pg/mL (<300); TSH (W/Ref FT4) 4.96 uIU/mL (0.36-3.74)
[2022-12-24 18:18] LABS: FREE T4 0.93 ng/dL (0.76-1.46)
[2022-12-25 09:36] LABS: ALT 16 U/L (14-59); AST 13 U/L (15-37); Albumin 3.3 g/dL (3.4-5.0); Alkaline Phosphatase 87 U/L (46-116); Anion Gap 11.9 mmol/L (3-11); BUN 41 mg/dL (7-18); Bilirubin, Total 0.3 mg/dL (0.2-1.0); CO2 27.1 mmol/L (21.0-32.0); CREATININE 1.5 mg/dL (0.55-1.02); Calcium 9.1 mg/dL (8.5-10.1); Chloride 95 mmol/L (98-107); Estimated GFR 40.39 (mL/min/1.73m2); Glucose 439 mg/dL (74-106); Potassium 4.2 mmol/L (3.5-5.1); Sodium 134 mmol/L (136-145)
== END 2022-12-24 17:28 | disposition home or self-care (01) ==
LOC: LBN 17:27
PROVIDERS: PCP Nurse Practitioner Gerontology; Visit Provider Nurse Practitioner Gerontology
DX: E03.9 Hypothyroidism, unspecified (principal); N18.2 Chronic kidney disease, stage 2 (mild); E83.42 Hypomagnesemia; F41.1 Generalized anxiety disorder; F31.5 Bipolar disorder, current episode depressed, severe, with psychotic features; B08.8 Other specified viral infections characterized by skin and mucous membrane lesions; J44.9 Chronic obstructive pulmonary disease, unspecified; R63.4 Abnormal weight loss; N39.0 Urinary tract infection, site not specified
CPT/HCPCS: 80053; 87077; 81003; 81015; 83735; 83880; 84439; 84443; 85025; 87086; 87186

== ENCOUNTER 2022-12-29 17:44 | Outpatient (REF) | payer MEDICARE, MEDICAID, SELFPAY ==
[2022-12-29 20:02] LABS: ALT 15 U/L (14-59); AST 17 U/L (15-37); Albumin 3.5 g/dL (3.4-5.0); Alkaline Phosphatase 81 U/L (46-116); Anion Gap 10.5 mmol/L (3-11); BUN 44 mg/dL (7-18); Bilirubin, Total 0.3 mg/dL (0.2-1.0); CO2 26.5 mmol/L (21.0-32.0); CREATININE 1.5 mg/dL (0.55-1.02); Calcium 9.1 mg/dL (8.5-10.1); Chloride 97 mmol/L (98-107); Estimated GFR 40.39 (mL/min/1.73m2); Glucose 457 mg/dL (74-106); NT-proBNP 8974 pg/mL (<300); Potassium 4.2 mmol/L (3.5-5.1); Sodium 134 mmol/L (136-145); Total Protein 7.4 g/dL (6.4-8.2)
== END 2022-12-29 17:45 | disposition home or self-care (01) ==
LOC: LBN 17:44
PROVIDERS: PCP Nurse Practitioner Gerontology; Visit Provider Nurse Practitioner Gerontology
DX: I50.40 Unspecified combined systolic (congestive) and diastolic (congestive) heart failure (principal); R63.4 Abnormal weight loss; M62.81 Muscle weakness (generalized)
CPT/HCPCS: 80053; 83880

== ENCOUNTER 2023-01-05 17:16 | Outpatient (REF) | payer MEDICARE, MEDICAID, SELFPAY ==
[2023-01-05 17:31] LABS: Bilirubin Negative (Negative); Blood Trace-intact (Negative); Clarity Clear (Clear); Glucose 500 mg/dL (Negative); Ketones Trace mg/dL (Negative); Leukocyte Esterase Negative (Negative); Nitrite Negative (Negative); Specific Gravity 1.015 (1.005-1.025); Urobilinogen 0.2 mg/dL (Up to 0.2); pH 6.5 (5-8)
[2023-01-05 17:43] LABS: Bacteria Rare HPF (Negative); C & S Indicated? C&S Done As Ordered; Casts Negative LPF (Negative); Crystals Negative HPF (Negative); Epithelial Cells Few HPF (Negative); Mucus Negative (Negative); WBC 0-2 HPF (0-5)
== END 2023-01-05 17:17 | disposition home or self-care (01) ==
LOC: LBN 17:16
PROVIDERS: PCP Nurse Practitioner Gerontology; Visit Provider Nurse Practitioner Gerontology
DX: R68.89 Other general symptoms and signs (principal); G89.4 Chronic pain syndrome
CPT/HCPCS: 81003; 81015; 87086

== ENCOUNTER 2023-01-12 18:01 | Outpatient (REF) | payer MEDICARE, MEDICAID, SELFPAY ==
[2023-01-12 17:43] LABS: Bilirubin Negative (Negative); Blood Negative (Negative); Clarity Clear (Clear); Glucose >=1000 mg/dL (Negative); Ketones Negative (Negative); Leukocyte Esterase Negative (Negative); Nitrite Negative (Negative)
[2023-01-12 17:45] LABS: Abs Immature Grans 0.13 10^3/uL (0.0-0.06); Absolute Basophil Count 0.06 10^3/uL (0.0-0.2); Absolute Lymphocyte Count 2.82 10^3/uL (1.2-3.4); Absolute Neutrophil Count 6.73 10^3/uL (1.2-6.7); Basophils % 0.6; HCT 38.6 % (36.0-46.0); HGB 12.7 g/dL (11.2-15.7); Immature Grans % 1.2; MCH 31.9 pg (27.0-33.0); MCHC 32.9 % (32.0-36.0); MCV 97 fL (80-95); MPV 12.6 fL (8.0-11.0); Monocytes % 6.7; Neutrophils % 64.5; Platelet Count 188 10^3/uL (130-400); RBC 3.98 10^6/uL (3.93-5.22); RDW 13.2 % (11.7-14.6); RDW-SD 46.9 fL; WBC 10.44 10^3/uL (4.4-10.8)
[2023-01-12 17:59] LABS: ALT 18 U/L (14-59); AST 15 U/L (15-37); Albumin 3.3 g/dL (3.4-5.0); Alkaline Phosphatase 71 U/L (46-116); Anion Gap 12.9 mmol/L (3-11); BUN 47 mg/dL (7-18); Bilirubin, Total 0.3 mg/dL (0.2-1.0); CO2 22.1 mmol/L (21.0-32.0); CREATININE 1.7 mg/dL (0.55-1.02); Calcium 8.7 mg/dL (8.5-10.1); Chloride 96 mmol/L (98-107); Estimated GFR 34.76 (mL/min/1.73m2); NT-proBNP 10613 pg/mL (<300); Potassium 4.3 mmol/L (3.5-5.1); Sodium 131 mmol/L (136-145); Total Protein 7.1 g/dL (6.4-8.2)
[2023-01-12 18:09] LABS: Glucose 530 mg/dL (74-106)
== END 2023-01-12 18:02 | disposition home or self-care (01) ==
LOC: LBN 18:01
PROVIDERS: PCP Nurse Practitioner Gerontology; Visit Provider Nurse Practitioner Gerontology
DX: I50.9 Heart failure, unspecified (principal); G89.4 Chronic pain syndrome
CPT/HCPCS: 80053; 81003; 83880; 85025; 87086

== ENCOUNTER 2023-01-19 18:24 | Outpatient (REF) | payer MEDICARE, MEDICAID, SELFPAY ==
[2023-01-19 18:37] LABS: Abs Immature Grans 0.13 10^3/uL (0.0-0.06); Absolute Basophil Count 0.06 10^3/uL (0.0-0.2); Absolute Neutrophil Count 8.53 10^3/uL (1.2-6.7); Basophils % 0.4; HCT 38.3 % (36.0-46.0); HGB 12.7 g/dL (11.2-15.7); Immature Grans % 0.9; Lymphocytes % 32.3; MCH 32.1 pg (27.0-33.0); MCHC 33.2 % (32.0-36.0); MCV 97 fL (80-95); MPV 12.2 fL (8.0-11.0); Monocytes % 6.5; Neutrophils % 59.9; Platelet Count 166 10^3/uL (130-400); RBC 3.96 10^6/uL (3.93-5.22); RDW-SD 46.2 fL; WBC 14.24 10^3/uL (4.4-10.8)
[2023-01-19 18:38] LABS: Absolute Monocyte Count 0.93 10^3/uL (0.1-0.8)
[2023-01-19 18:53] LABS: ALT 22 U/L (14-59); AST 21 U/L (15-37); Albumin 3.3 g/dL (3.4-5.0); Alkaline Phosphatase 65 U/L (46-116); Anion Gap 13.8 mmol/L (3-11); BUN 52 mg/dL (7-18); Bilirubin, Total 0.3 mg/dL (0.2-1.0); CO2 25.2 mmol/L (21.0-32.0); CREATININE 1.3 mg/dL (0.55-1.02); Chloride 101 mmol/L (98-107); Estimated GFR 47.96 (mL/min/1.73m2); Glucose 155 mg/dL (74-106); NT-proBNP 9265 pg/mL (<300); Potassium 3.6 mmol/L (3.5-5.1); Sodium 140 mmol/L (136-145); Total Protein 7.3 g/dL (6.4-8.2)
== END 2023-01-19 18:25 | disposition home or self-care (01) ==
LOC: LBN 18:24
PROVIDERS: PCP Nurse Practitioner Gerontology; Visit Provider Nurse Practitioner Gerontology
DX: I50.42 Chronic combined systolic (congestive) and diastolic (congestive) heart failure (principal); N18.2 Chronic kidney disease, stage 2 (mild); R60.0 Localized edema; G89.4 Chronic pain syndrome
CPT/HCPCS: 80053; 83880; 85025

== ENCOUNTER 2023-02-16 17:50 | Outpatient (REF) | payer MEDICARE, MEDICAID, SELFPAY ==
[2023-02-16 17:56] LABS: Abs Immature Grans 0.12 10^3/uL (0.0-0.06); Absolute Basophil Count 0.07 10^3/uL (0.0-0.2); Absolute Monocyte Count 0.95 10^3/uL (0.1-0.8); Basophils % 0.6; HCT 36.1 % (36.0-46.0); HGB 11.7 g/dL (11.2-15.7); Lymphocytes % 25.9; MCH 31.9 pg (27.0-33.0); MCHC 32.4 % (32.0-36.0); MCV 98 fL (80-95); MPV 10.7 fL (8.0-11.0); Monocytes % 7.7; Neutrophils % 64.8; Platelet Count 222 10^3/uL (130-400); RBC 3.67 10^6/uL (3.93-5.22); RDW 14.2 % (11.7-14.6); RDW-SD 51.7 fL; WBC 12.36 10^3/uL (4.4-10.8)
[2023-02-16 17:57] LABS: Absolute Neutrophil Count 8.01 10^3/uL (1.2-6.7)
[2023-02-16 18:14] LABS: Hemoglobin A1C 8.9 % (<5.7)
[2023-02-16 18:16] LABS: ALT 15 U/L (14-59); AST 14 U/L (15-37); Albumin 3.2 g/dL (3.4-5.0); Alkaline Phosphatase 71 U/L (46-116); Anion Gap 11.1 mmol/L (3-11); BUN 30 mg/dL (7-18); Bilirubin, Total 0.4 mg/dL (0.2-1.0); CO2 28.9 mmol/L (21.0-32.0); CREATININE 1.1 mg/dL (0.55-1.02); Chloride 99 mmol/L (98-107); Estimated GFR 58.61 (mL/min/1.73m2); Glucose 201 mg/dL (74-106); Potassium 4.3 mmol/L (3.5-5.1); Sodium 139 mmol/L (136-145); Total Protein 7.2 g/dL (6.4-8.2)
== END 2023-02-16 17:51 | disposition home or self-care (01) ==
LOC: LBN 17:50
PROVIDERS: PCP Nurse Practitioner Gerontology; Visit Provider Nurse Practitioner Gerontology
DX: N18.2 Chronic kidney disease, stage 2 (mild); E87.6 Hypokalemia; D64.9 Anemia, unspecified; E11.40 Type 2 diabetes mellitus with diabetic neuropathy, unspecified; E03.9 Hypothyroidism, unspecified
CPT/HCPCS: 80053; 83036; 85025

== ENCOUNTER → 2023-03-12 01:12 | Outpatient (CLI) | payer MEDICARE, MEDICAID, SELFPAY ==
--- NOTE | 2023-03-12 13:10 | DI.CTLCSR_ITS ---
Exam(s) CT CHEST LUNG CANCER SCREEN EXAM: CT CHEST LUNG CANCER SCREEN CLINICAL HISTORY: Screening for lung cancer,current smoker, f17.210 TECHNIQUE: Imaging Protocol: Axial computed tomography images with coronal and sagittal reformatted images were created and reviewed COMPARISON: CT CT CHEST/ABD/PEL WO from 01/15/2022 FINDINGS: Tracheobronchial tree: There is a 4 mm nodule along the anterior aspect of the trachea just proximal to the bifurcation (series 3, image 148). Pulmonary parenchyma: There is a small reticular nodular infiltrate in the posterior aspect of the ri ght upper lobe. No focal consolidating infiltrates are seen. No architectural distortion. Lung Nodules: None. Mediastinum and Deisy: No dominant adenopathy or fluid collection. The esophagus is unremarkable. Thyroid gland: Unremarkable. Lymph nodes: Unremarkable. Pleura: No effusion or pneumothorax. Heart: The heart is not dilated. Coronary artery calcification and/or stents are present. No pericar dial effusion. Aorta: Thoracic aorta non-dilated.Atherosclerosis. Upper abdomen: Unremarkable. Soft Tissues: Unremarkable. Bones: Within normal limits for the patient's age. IMPRESSION: 1. No pulmonary nodules. 2. Small reticular nodular infiltrate in the posterior aspect of the right upper lobe. This can be s een with small airways disease or infection. 3. 4 mm nodule in the anterior aspect of the distal trachea. Lung RADS Cat 1S - Negative: No nodules and definitely benign nodules. Other: Clinically Significant or Potentially Clinically Significant Findings (non lung cancer) Lung-RADS 1.0 CATEGORIES: Category 0 - Prior chest CT exam(s) being located for comparison. Category 1 - Annual screening in 12 months. No nodules or definitely benign nodules. Category 2 - Annual screening in 12 months. Benign appearance. Nodules with low likelihood of becomin g active cancer. Category 3 - 6-month follow-up. Probably benign. Short-term follow-up suggested. Nodules with low lik elihood of becoming active cancer. Category 4A - 3-month follow-up and CT/PET if >8 mm in size. Suspicious finding. Findings which requi re additional testing. Category 4B - Findings which require additional testing and tissue sampling. Suspicious finding. Category 4X - Category 3 or 4 nodules with additional features or imaging findings that increases the suspicion of malignancy. Modifier S- Potentially clinically significant finding. (Non lung cancer) RADIATION DOSE DELIVERED: Total DLP Total DLP DATA REPOSITORY: All CT scans at this facility are submitted to the National Radiology Data Registry (NRDR) Dose Index Registry (DIR) with the [employer] (ACR). RADIATION OPTIMIZATION: All CT scans at this facility use at least one of these dose optimization te chniques: automated exposure control; mA and/or kV adjustment per patient size (includes targeted exa ms where dose is matched to clinical indication); or iterative reconstruction.
== END ==
PROVIDERS: PCP Nurse Practitioner Gerontology; Visit Provider Student in an Organized Health Care Education/Training Program
DX: F17.210 Nicotine dependence, cigarettes, uncomplicated (principal); Z12.2 Encounter for screening for malignant neoplasm of respiratory organs
CPT/HCPCS: 71271

== ENCOUNTER 2023-03-16 17:58 | Outpatient (REF) | payer MEDICARE, MEDICAID, SELFPAY ==
[2023-03-16 19:19] LABS: Abs Immature Grans 0.14 10^3/uL (0.0-0.06); Absolute Basophil Count 0.07 10^3/uL (0.0-0.2); Absolute Lymphocyte Count 3.13 10^3/uL (1.2-3.4); Absolute Monocyte Count 0.69 10^3/uL (0.1-0.8); Absolute Neutrophil Count 3.98 10^3/uL (1.2-6.7); Basophils % 0.9; HCT 39.7 % (36.0-46.0); HGB 12.4 g/dL (11.2-15.7); Immature Grans % 1.7; Lymphocytes % 39.1; MCH 32.2 pg (27.0-33.0); MCHC 31.2 % (32.0-36.0); MCV 103 fL (80-95); Monocytes % 8.6; Neutrophils % 49.7; Platelet Count 204 10^3/uL (130-400); RBC 3.85 10^6/uL (3.93-5.22); RDW-SD 53.2 fL; WBC 8.01 10^3/uL (4.4-10.8)
[2023-03-16 19:42] LABS: ALT 13 U/L (14-59); AST 27 U/L (15-37); Albumin 2.8 g/dL (3.4-5.0); Alkaline Phosphatase 73 U/L (46-116); Anion Gap 9.8 mmol/L (3-11); BUN 21 mg/dL (7-18); Bilirubin, Total 0.4 mg/dL (0.2-1.0); CO2 27.2 mmol/L (21.0-32.0); CREATININE 1.2 mg/dL (0.55-1.02); Calcium 8.9 mg/dL (8.5-10.1); Chloride 100 mmol/L (98-107); Glucose 102 mg/dL (74-106); Potassium 4.1 mmol/L (3.5-5.1); Sodium 137 mmol/L (136-145); Total Protein 7.3 g/dL (6.4-8.2)
== END 2023-03-16 17:59 | disposition home or self-care (01) ==
LOC: LBN 17:58
PROVIDERS: PCP Nurse Practitioner Gerontology; Visit Provider Nurse Practitioner Gerontology
DX: R60.9 Edema, unspecified (principal); I50.42 Chronic combined systolic (congestive) and diastolic (congestive) heart failure; E83.42 Hypomagnesemia
CPT/HCPCS: 80053; 85025

== ENCOUNTER 2023-04-11 19:22 | Outpatient (REF) | payer MEDICARE, MEDICAID, SELFPAY ==
[2023-04-11 12:26] LABS: Abs Immature Grans 0.05 10^3/uL (0.0-0.06); Absolute Basophil Count 0.03 10^3/uL (0.0-0.2); Absolute Lymphocyte Count 1.83 10^3/uL (1.2-3.4); Absolute Monocyte Count 0.99 10^3/uL (0.1-0.8); Absolute Neutrophil Count 5.26 10^3/uL (1.2-6.7); Basophils % 0.4; HCT 36.4 % (36.0-46.0); HGB 11.7 g/dL (11.2-15.7); Immature Grans % 0.6; Lymphocytes % 22.4; MCH 31.2 pg (27.0-33.0); MCHC 32.1 % (32.0-36.0); MCV 97 fL (80-95); MPV 11.1 fL (8.0-11.0); Monocytes % 12.1; Neutrophils % 64.5; Platelet Count 153 10^3/uL (130-400); RBC 3.75 10^6/uL (3.93-5.22); RDW 14.6 % (11.7-14.6); RDW-SD 52.3 fL; WBC 8.16 10^3/uL (4.4-10.8)
[2023-04-11 12:36] LABS: ALT 16 U/L (14-59); AST 22 U/L (15-37); Albumin 2.1 g/dL (3.4-5.0); Alkaline Phosphatase 77 U/L (46-116); Anion Gap 11.6 mmol/L (3-11); BUN 23 mg/dL (7-18); Bilirubin, Total 0.3 mg/dL (0.2-1.0); CO2 25.4 mmol/L (21.0-32.0); CREATININE 1.8 mg/dL (0.55-1.02); Calcium 8.2 mg/dL (8.5-10.1); Chloride 101 mmol/L (98-107); Estimated GFR 32.46 (mL/min/1.73m2); Glucose 190 mg/dL (74-106); Potassium 3.9 mmol/L (3.5-5.1); Sodium 138 mmol/L (136-145); Total Protein 5.8 g/dL (6.4-8.2)
== END 2023-04-11 19:23 | disposition home or self-care (01) ==
LOC: LBN 19:22
PROVIDERS: PCP Nurse Practitioner Gerontology
DX: R11.2 Nausea with vomiting, unspecified (principal); R53.1 Weakness; R63.4 Abnormal weight loss
CPT/HCPCS: 80053; 85025

== ENCOUNTER 2023-04-13 16:11 | Emergency (ER) | payer MEDICARE, MEDICAID, SELFPAY ==
[2023-04-13 16:10] VITALS: BP 107/61; PULSE 90; RESP 18; TEMP 36.3; O2SAT 100
[2023-04-13 16:15] VITALS: RESP 22
--- NOTE | 2023-04-13 16:30 | DI.CT_ITS ---
Exam(s) CT ABDOMEN PELVIS W EXAM: CT ABDOMEN PELVIS W CLINICAL HISTORY: abdominal pain, vomiting. TECHNIQUE: Imaging Protocol: Axial computed tomography images with coronal and sagittal reformatted images were created and reviewed CONTRAST MATERIAL: Intravenous: Omnipaque 350 Contrast volume:80 ml Oral: no COMPARISON: CT CT ABDOMEN PELVIS W from 12/31/[address] CHEST/ABD/PEL WO from 01/15/[address] ABDOMEN PELVIS W from 11/02/2022 FINDINGS: ABDOMEN and PELVIS: Lung Bases: Heart mildly enlarged. Coronary arteries heavily calcified. Liver: Normal density. No measurable mass. Gallbladder and biliary tract: No radiodense calculus or dilation. Pancreas: Normal density. No abnormal calcifications or inflammatory process. No evidence of mass. Stable tiny cyst in the tail. Spleen: Normal. Kidneys: Right kidney atrophic and shows multiple areas of scarring. Ureter dilated down to ureterov esical junction without obstructing stone or visible mass.. No radiodense stones. No suspicious mas ses seen. Adrenal glands: No masses seen. Vasculature: Severe atherosclerotic changes of the abdominal aorta with narrowing of the lumen distal ly as well as severe stenosis of the proximal common iliac arteries bilaterally. Soft tissues: Unremarkable. Bladder: Mild wall thickening. No calculi.No focal mass. Bowel: No obstruction. Thickening of the antrum of the stomach, similar to prior exam. Appears more prominent when compared with 2020. Findings could represent inflammatory changes however a mass is not excluded. Appendix normal. Peritoneal cavity: No ascites. No focal collection or mesenteric inflammatory response. Bones: Bilateral L5 spondylolysis again noted. Reproductive organs: Within normal limits. Lymph nodes: Unremarkable. IMPRESSION:: Wall thickening of the stomach could represent chronic or acute inflammatory changes ve rsus mass. Atrophic right kidney. Mild right hydronephrosis with ureteral dilatation down to the level of the b ladder, chronic. Findings called to Dr. Brandon of the emergency department. RADIATION DOSE DELIVERED: 723.95mGy.cm Total DLP DATA REPOSITORY: All CT scans at this facility are submitted to the National Radiology Data Registry (NRDR) Dose Index Registry (DIR) with the [employer] (ACR). RADIATION OPTIMIZATION: All CT scans at this facility use at least one of these dose optimization te chniques: automated exposure control; mA and/or kV adjustment per patient size (includes targeted exa ms where dose is matched to clinical indication); or iterative reconstruction.
--- NOTE | 2023-04-13 16:48 | ED.GENADUL_ITS ---
HPI General Mode of arrival: EMS . Date/Time Provider Initiated Documentation: 04/13/23 16:13 . Limitations to Documentation: no limitations . Information obtained by: patient, EMS and old records reviewed . HPI Narrative: 57yo F with hx of schizoaffective, bipolar, tardive dyskinesia, medication induced Parkinsonianism, T2DM, CAD, hypothyroid, COPD, AVANI, cognitive disorder, presenting from the [facility] via EMS for nausea and vomiting. Reports diminished PO intake for several weeks. Over the past three days has vomited 2-3 times. Nonbloody nonbilious. No constipation or diarrhea. Mild mid-abdominal pain. Reports a history of bowel obstruction in the past, thinks this feels similar. Medical records reviewed; EGD with surgery in Nov 2022 showed stomach ulcer as well as polyp concerning for adenoma, neurology visit in December 2022 referred for concern for possible TIA/stroke. She is otherwise in her usual state of health with no fevers, chills, constipation, diarrhea, dysuria, hematuria, recent trauma, or other concerns. Related Data Home Medications Medication Instructions Recorded Confirmed olanzapine 5 mg tablet 5 mg PO DAILY 11/15/20 04/13/23 nitroglycerin 0.4 mg sublingual 0.4 mg sublingual Q5M PRN 01/24/21 04/13/23 tablet (Nitrostat) omeprazole 40 mg capsule,delayed 40 mg PO DAILY #90 caps 03/06/21 04/13/23 release acetaminophen 325 mg tablet 1,000 mg PO BID 05/03/21 04/13/23 (Tylenol) nicotine 10 mg inhalation 1 inh inhalation 4-6XD PRN 10/30/21 04/13/23 cartridge (Nicotrol) trihexyphenidyl 2 mg tablet 2 mg PO TID 01/29/22 04/13/23 albuterol sulfate 90 mcg/actuation 2 puff inhalation BID 04/29/22 04/13/23 aerosol inhaler atorvastatin 40 mg tablet 40 mg PO QHS 04/29/22 04/13/23 buspirone 10 mg tablet 10 mg PO TID 04/29/22 04/13/23 divalproex 500 mg tablet,extended 1,000 mg PO HS 04/29/22 04/13/23 release 24 hr torsemide 20 mg tablet 100 mg PO BID 04/29/22 04/13/23 bisacodyl 10 mg rectal suppository 10 mg PA ONCE PRN 11/05/22 04/13/23 carboxymethylcellulose sodium 0.5 1 drp ophthalmic (eye) TID 11/05/22 04/13/23 % eye drops (Refresh Tears) clozapine 100 mg tablet 300 mg PO BID 11/05/22 04/13/23 clozapine 25 mg tablet 50 mg PO BID 11/05/22 04/13/23 dextromethorphan-guaifenesin 10 10 ml PO Q4H PRN 11/05/22 04/13/23 mg-100 mg/5 mL oral liquid (Safe Tussin DM) ipratropium 0.5 mg-albuterol 3 mg 3 ml inhalation TID PRN 11/05/22 04/13/23 (2.5 mg base)/3 mL nebulization soln levothyroxine 125 mcg capsule 100 mcg PO DAILY 11/05/22 04/13/23 magnesium chloride 64 mg 64 mg PO BID 11/05/22 04/13/23 (magnesium chloride) tablet,delayed release (Mag-Delay) sennosides 8.6 mg-docusate sodium 2 tab-cap PO BID 11/05/22 04/13/23 50 mg tablet (Stool Softener-Laxative) budesonide-formoterol HFA 160 2 puff inhalation BID 11/21/22 04/13/23 mcg-4.5 mcg/actuation aerosol inhaler (Symbicort) lidocaine 4 % topical patch 1 patch topical DAILY 12/01/22 04/13/23 (Salonpas (lidocaine)) megestrol 400 mg/10 mL (40 mg/mL) 400 mg PO DAILY 12/01/22 04/13/23 oral suspension papptxmi-pdk-cnzmo acid 0.4 1 tab PO DAILY 12/15/22 04/13/23 mg-lycopene 300 mcg-lutein 250 mcg tablet (Cerovite Senior) potassium chloride 10 mEq 40 meq PO DAILY 12/15/22 04/13/23 tablet,extended release lactulose 10 gram/15 mL oral 10 g PO DAILY 04/13/23 04/13/23 solution spironolactone 25 mg tablet 25 mg PO BID 04/13/23 04/13/23 Previous Rx's Medication Instructions Recorded omeprazole 40 mg capsule,delayed 40 mg PO DAILY #90 caps 03/06/21 release Allergies Allergy/AdvReac Type Severity Reaction Status Date / Time prednisone Allergy Unknown Verified 12/18/22 13:43 acetaminophen [From Percocet] Allergy Verified 12/18/22 13:43 lithium Allergy Verified 12/18/22 13:43 oxycodone [From OxyContin] Allergy Verified 12/18/22 13:43 Penicillins Allergy Verified 12/18/22 13:43 pioglitazone Allergy Verified 12/18/22 13:43 Sulfa (Sulfonamide Allergy Verified 12/18/22 13:43 Antibiotics) tramadol Allergy Verified 12/18/22 13:43 General Stated Complaint: GenMedical DIONE: 3 Review of Systems Narrative: see HPI Exam Narrative Exam Narrative: General: Alert, well appearing, well nourished, in no acute distress. Head: Normocephalic, atraumatic Neck: Trachea midline, ?Neck supple. ENT: ?MMM.? No oropharygeal lesions or exudate. Cardiac: ?RRR, no murmurs appreciated Resp: No respiratory distress. CTAB. Abd: ?Soft, non-distended, midly TTP in the periumbilical region with no rebound or guarding. : ?No suprapubic tenderness. No CVA tenderness. Extremities: ?No deformities.? No peripheral edema. Neurologic: GCS 15. ? Moves all extremities against gravity Course Vital Signs Vital signs: Vital Signs Temperature 36.3 C L 04/13/23 16:10 Pulse 90 04/13/23 16:10 Respiratory Rate 18 04/13/23 16:10 Blood Pressure 107/61 04/13/23 16:10 Pulse Oximetry 100 04/13/23 16:10 Temperature 36.3 C L 04/13/23 16:10 Temperature Source Skin 04/13/23 16:10 Pulse 90 04/13/23 16:10 Respiratory Rate 22 04/13/23 16:15 Respiratory Effort Normal 04/13/23 16:15 Respiratory Depth Normal 04/13/23 16:15 Respiratory Pattern Normal 04/13/23 16:15 Blood Pressure 107/61 04/13/23 16:10 Blood Pressure Position Sitting 04/13/23 16:10 Pulse Oximetry 100 04/13/23 16:10 Oxygen Delivery Method Room Air 04/13/23 16:10 Oxygen Flow Rate 0 04/13/23 16:10 Medical Decision Making 57yo F with hx of schizoaffective, bipolar, tardive dyskinesia, medication induced Parkinsonianism, T2DM, CAD, hypothyroid, COPD, AVANI, cognitive disorder, presenting from the [facility] via EMS for nausea and vomiting, 2-3 times in the past 3 days as well as diminished PO intake for several weeks. Associated mild mid abdominal pain. Vital signs reassuring, physical exam with mild abdominal tenderness and no peritoneal signs. Sending facility was reportedly concerned for dehydration. [facility] records reviewed; of note EGD in nov of last year showed stomach ulcer and polyp, multiple outpatient visits indicating workup for weight loss/decreased PO over the past 6 months. Given 1L IVF here, IV tylenol, zofran. Labs reviewed as below, CBC reassuring with no leukcotysois or anemia, CMP with no significant electrolyte abnormalities, Cr 1.7 (1.8 on outpatient labs 04/11/23), low albumin and total protein consistent with history of persistently decreased PO intake over months. Lactate normal. CT abd/pelvis independently reviewed, no obstruction or free fluid on my view, discussed with Dr. Maxwell and agree with radiology read below with thickening of the gastric wall. On reassessment she has tolerated PO. CT and lab findings discussed with patient and she was advised to followup with her PCP regarding these. Discharged home; discharge instructions and return precautions were reviewed with patient and sent to the [facility]. She verbalized understanding and is in full agreement with the plan. Medical Records Medical records reviewed: Yes I reviewed the patient's medical records. Imaging Data Radiologic Study: Imaging: CT Scan Radiologist's impression: IMPRESSION:: Wall thickening of the stomach could represent chronic or acute inflammatory changes versus mass. Atrophic right kidney. Mild right hydronephrosis with ureteral dilatation down to the level of the bladder, chronic. Lab Data Lab results reviewed: Yes I reviewed the patient's lab results. Labs: Laboratory Tests Range/Units 04/13/23 17:00 WBC (4.4-10.8) 10^3/uL 7.97 RBC (3.93-5.22) 10^6/uL 3.97 Hgb (11.2-15.7) g/dL 12.3 Hct (36.0-46.0) % 38.0 MCV (80-95) fL 96 H MCH (27.0-33.0) pg 31.0 MCHC (32.0-36.0) % 32.4 RDW (11.7-14.6) % 14.6 Plt Count (130-400) 10^3/uL 141 MPV (8.0-11.0) fL 10.4 Immature Gran % 0.5 Neutrophils % 58.1 Lymphocytes % 30.9 Monocytes % 10.0 Eosinophils % 0.0 Basophils % 0.5 Nucleated RBC % (0.0-0.3) % 0.0 Absolute Neutrophils (1.2-6.7) 10^3/uL 4.63 Absolute Lymphocytes (1.2-3.4) 10^3/uL 2.46 Absolute Monocytes (0.1-0.8) 10^3/uL 0.80 Absolute Eosinophils (0.0-0.7) 10^3/uL 0.00 Absolute Basophils (0.0-0.2) 10^3/uL 0.04 VBG Lactate (0.6-1.4) mmol/L 0.9 Sodium (136-145) mmol/L 138 Potassium (3.5-5.1) mmol/L 4.2 Chloride (98-107) mmol/L 102 Carbon Dioxide (21.0-32.0) mmol/L 26.6 Anion Gap (3-11) mmol/L 9.4 BUN (7-18) mg/dL 22 H Creatinine (0.55-1.02) mg/dL 1.7 H Est GFR (CKD-EPI 2020) (mL/min/1.73m2) 34.76 Glucose (74-106) mg/dL 78 Calcium (8.5-10.1) mg/dL 8.1 L Magnesium (1.8-2.4) mg/dL 2.0 Total Bilirubin (0.2-1.0) mg/dL 0.4 AST (15-37) U/L 22 ALT (14-59) U/L 18 Alkaline Phosphatase (46-116) U/L 81 Total Protein (6.4-8.2) g/dL 6.0 L Albumin (3.4-5.0) g/dL 2.1 L Lipase (16-77) U/L 22 Quality:SDOH Health Related Social Needs: No Data to Display PFSH All Active Problems (Updated 04/13/23 @ 18:50 by Joanie Brandon MD) Vomiting (Acute) Weight loss (Acute) Nicotine dependence, cigarettes, uncomplicated (Acute) Pulmonary emphysema (Acute) Coronary artery disease (Chronic) Personal history of nicotine dependence (Acute) Infected sebaceous cyst of skin (Acute) Pancreatic cyst (Acute) Aortic stenosis (Chronic) AVANI (obstructive sleep apnea) (Acute) Left bundle branch block (Acute) Per [facility] states that is not on her current list. Per [facility] states she does see a email deployment specialist GERD (gastroesophageal reflux disease) (Acute) Hyperlipemia (Acute) CHF (congestive heart failure) (Chronic) Diabetes mellitus type II, controlled (Acute) Hypothyroid (Chronic) Secondary Parkinson disease (Acute) Cognitive impairment (Acute) Schizoaffective disorder (Chronic) Diastolic dysfunction (Chronic) Discharge planning issues (Acute) Apneic episode (Acute) Acute metabolic encephalopathy (Acute) Bowel obstruction (Acute) Anemia (Chronic) Chronic constipation (Acute) Neuroleptic-induced parkinsonism (Acute) Well woman exam with routine gynecological exam (Acute) Medical History At risk for aspiration Gastroparesis, Food contents despite 8 hour NPO hold before procedure. 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 isn't allowed to have items in her room when she is manic. Myocardial infarction 2017 per MANAGER LEARNING at [facility]- has not seen cards Protein-calorie malnutrition, mild Dehydration Community acquired pneumonia DVT prophylaxis Rib pain on right side Electrolyte abnormality Hyperthyroidism Pancreatitis COPD (chronic obstructive pulmonary disease) Alcoholism in remission Acute kidney injury Tobacco dependence History of alcohol abuse Bipolar 1 disorder Diabetic neuropathy Heart murmur Subdural hematoma small right September 2018 2/2 mechanical fall Surgical History History of esophagogastroduodenoscopy (EGD) (~11/2022) biopsies taken S/P thoracotomy H/O abdominal surgery Social History Smoking/Tobacco Use Status: Former Tobacco Use Quit Date: 11/07/21 Tobacco: How many years used: 36 Smoking risk assessment performed?: Yes Alcohol Intake: former Drug use: Current Sobriety Substance use type: does not use Details: Nicotrol inhalers Housing: [facility]dc current occupation: Disabled. Lives at [facility] [place] use: always Additional Social history: Resident @ [facility] [employer] Discharge Plan Disposition Patient Disposition: Home Condition: Good Discharge Details Clinical Impression: Vomiting Primary Care Provider: Aranza Mackenzie ED Provider: Joanie Brandon Home Meds and New Rx's Prescriptions: Continued levothyroxine 125 mcg capsule 100 mcg PO DAILY trihexyphenidyl 2 mg tablet 2 mg PO TID clozapine 25 mg tablet 50 mg PO BID Nicotrol 10 mg cartridge 1 inh inhalation 4-6XD PRN torsemide 20 mg tablet 100 mg PO BID Mag-Delay 64 mg tablet,delayed release (DR/EC) 64 mg PO BID atorvastatin 40 mg tablet 40 mg PO QHS divalproex 500 mg tablet extended release 24 hr 1,000 mg PO HS budesonide-formoterol [Symbicort] 160-4.5 mcg/actuation HFA aerosol inhaler 2 puff inhalation BID nitroglycerin [Nitrostat] 0.4 mg tablet, sublingual 0.4 mg sublingual Q5M PRN Rx Instructions: do not exceed 3 doses per episode albuterol sulfate 90 mcg/actuation HFA aerosol inhaler 2 puff inhalation BID carboxymethylcellulose sodium [Refresh Tears] 0.5 % drops 1 drp ophthalmic (eye) TID dextromethorphan-guaifenesin [Safe Tussin DM] 10-100 mg/5 mL liquid 10 ml PO Q4H PRN sennosides-docusate sodium [Stool Softener-Laxative] 8.6-50 mg tablet 2 tab-cap PO BID bisacodyl 10 mg suppository 10 mg PA ONCE PRN Rx Instructions: 1 suppository per rectum as needed for no bowel movement in 4 days ipratropium-albuterol 0.5 mg-3 mg(2.5 mg base)/3 mL solution for nebulization 3 ml inhalation TID PRN Patient Comments: and as needed q4h buspirone 10 mg tablet 10 mg PO TID potassium chloride 10 mEq tablet extended release 40 meq PO DAILY Cerovite Senior 0.4 mg-300 mcg- 250 mcg tablet 1 tab PO DAILY acetaminophen [Tylenol] 325 mg tablet 1,000 mg PO BID olanzapine 5 mg tablet 5 mg PO DAILY clozapine 100 mg tablet 300 mg PO BID omeprazole 40 mg capsule,delayed release(DR/EC) 40 mg PO DAILY Qty: 90 0RF megestrol 400 mg/10 mL (40 mg/mL) Suspension 400 mg PO DAILY lidocaine [Salonpas (lidocaine)] 4 % Adhesive Patch,Medicated 1 patch TOPICAL DAILY spironolactone 25 mg tablet 25 mg PO BID lactulose 10 gram/15 mL solution 10 g PO DAILY Discharge Instructions Instructions: Acute Nausea and Vomiting (ED) Additional Instructions: Call your primary care doctor tomorrow to schedule an appointment to follow up on your visit today. Discuss your nausea and whether or not you should be referred for a swallow study, and that your CT showed thickening in your stomach. Return to the emergency department for new or worsening symptoms including new/different/worse pain, inability to keep down fluids, or if you have any other concerns. Referrals: Aranza Mackenzie NP [Primary Care Provider] -
[2023-04-13 17:08] VITALS: O2SAT 100
[2023-04-13 17:10] VITALS: O2SAT 100
[2023-04-13 17:16] LABS: Abs Immature Grans 0.04 10^3/uL (0.0-0.06); Absolute Basophil Count 0.04 10^3/uL (0.0-0.2); Absolute Lymphocyte Count 2.46 10^3/uL (1.2-3.4); Absolute Neutrophil Count 4.63 10^3/uL (1.2-6.7); Basophils % 0.5; HGB 12.3 g/dL (11.2-15.7); Immature Grans % 0.5; Lactate 0.9 mmol/L (0.6-1.4); Lymphocytes % 30.9; MCHC 32.4 % (32.0-36.0); MCV 96 fL (80-95); MPV 10.4 fL (8.0-11.0); Neutrophils % 58.1; Platelet Count 141 10^3/uL (130-400); RBC 3.97 10^6/uL (3.93-5.22); RDW 14.6 % (11.7-14.6); RDW-SD 51.4 fL; WBC 7.97 10^3/uL (4.4-10.8)
[2023-04-13] MEDS: Normal Saline - Diluent 50 ML VIAL IJ (17:29)
[2023-04-13] MEDS: Omnipaque 350 MG/ML 100 ML BTL 80 ML IJ (17:30)
[2023-04-13 17:36] LABS: ALT 18 U/L (14-59); AST 22 U/L (15-37); Albumin 2.1 g/dL (3.4-5.0); Alkaline Phosphatase 81 U/L (46-116); Anion Gap 9.4 mmol/L (3-11); BUN 22 mg/dL (7-18); Bilirubin, Total 0.4 mg/dL (0.2-1.0); CO2 26.6 mmol/L (21.0-32.0); CREATININE 1.7 mg/dL (0.55-1.02); Calcium 8.1 mg/dL (8.5-10.1); Chloride 102 mmol/L (98-107); Estimated GFR 34.76 (mL/min/1.73m2); Glucose 78 mg/dL (74-106); Lipase 22 U/L (16-77); Potassium 4.2 mmol/L (3.5-5.1); Sodium 138 mmol/L (136-145)
== END 2023-04-13 19:06 | disposition home or self-care (01) ==
PROVIDERS: Emergency Provider Student in an Organized Health Care Education/Training Program; PCP Nurse Practitioner Gerontology
DX: R10.9 Unspecified abdominal pain (principal); R11.2 Nausea with vomiting, unspecified; I11.0 Hypertensive heart disease with heart failure; I50.32 Chronic diastolic (congestive) heart failure; N26.1 Atrophy of kidney (terminal); E11.40 Type 2 diabetes mellitus with diabetic neuropathy, unspecified; J44.9 Chronic obstructive pulmonary disease, unspecified; I25.10 Atherosclerotic heart disease of native coronary artery without angina pectoris; Z79.899 Other long term (current) drug therapy; Z87.891 Personal history of nicotine dependence
CPT/HCPCS: 80053; 83690; 99285; 74177; 83605; 83735; 85025; 99284; J3490

== ENCOUNTER → 2023-04-14 01:25 | Outpatient (CLI) | payer MEDICARE, MEDICAID, SELFPAY ==
--- NOTE | 2023-04-14 14:00 | DI.US_ITS ---
APPROVED REPORT EXAM: Comprehensive 2D, Doppler, and color-flow Echocardiogram Patient Location: Out-Patient Copy Holder: Panchito Barney RDCS (AE) Indications: aortic stenosis, lt bundle branch block Conclusion LA/LV moderately dilated, RA/RV normal sizes. Akinesis of the interventricular septum with parodoxical motion superimposed on moderate global hypok inesis, EF 30-35%. Normal RV function. Calcific aortic stenosis with calculated BEATRIZ of 0.65 cm2 ( critical ) which is out of proportion t o the peak gradient of 20.5 mmHg and mean gradient of 11.1 mmHg. The aortic stenosis is probably s evere to critical, associated with a low flow state. Clinical or dobutamine echo correlation suggesed . Moderate to severe mitral annular calcification, mild MS, mild MR. Normal TV with trace TR,no phtn. No pericardial effusion. Compared to the previous echo of 06/06/2021, the LV function has dropped significantly. Wall motion Left Ventricle The left ventricle is normal size. Left ventricular systolic function is moderately decreased. There is normal left ventricular wall thickness. Paradoxical septal motion consistent with conduction abnor mality. There is no ventricular septal defect visualized. LVEF is 35-39%. Right Ventricle Right ventricle is mildly dilated. The right ventricular systolic function is normal. Atria The left atrium size is normal. The right atrium size is normal. The interatrial septum is intact wit h no evidence for an atrial septal defect. Aortic Valve Aortic valve is calcified. Aortic valve is probably trileaflet. Borderline mild aortic stenosis. Peak aortic valve gradient is 20.51 mmHg. Highest mean aortic valve gradient is 11.13 mmHg. Calculated AV A by the continuity equation is 0.7 cm2. Trace aortic regurgitation. Mitral Valve Moderate mitral annular calcification. Borderline mild mitral stenosis. Mild to moderate mitral regur gitation. Tricuspid Valve The tricuspid valve is normal in structure. There is no tricuspid valve stenosis. Trace tricuspid reg urgitation. The RVSP is 16.46 mmHg. Pulmonic Valve The pulmonary valve is normal in structure. There is no pulmonic valvular stenosis. There is no pulmo taylor valvular regurgitation. Great Vessels The aortic root is normal in size. The ascending aorta is normal in size. Aortic arch is not well vis ualized. IVC is normal in size and collapses >50% with inspiration. Pericardium There is no pericardial effusion. 2D Dimensions IVSD d PLAX 0.75 cm F: 0.6-1.0 Ao Root d 2.35 cm F: 2.7 - 3.3 LVPW d PLAX 0.81 cm F: 0.6 - 1.0 Ao Asc Diam d 2.91 cm F: 2.3 - 3.1 LVID d PLAX 5.02 cm F: 3.8 - 5.2 LVDs 4.07 cm F: 2.2 - 3.5 LV EF Teichholz 39.1 % FS 19.03 % LV EDV (Teich) 119.4 mL LV ESV (Teich) 72.8 mL Stroke Vol Index (Teich) 28.98 M-Mode TAPSE 0.98 cm (M/F) >1.7 Auto EF LV EDV A4C 153.4 mL LV EDV A2C 139.6 mL LV EDV BP LV ESV A4C 96.8 mL LV ESV A2C 90.7 mL LV ESV BP LVEF(%) A4C 36.9 % LVEF(%) A2C 35.0 % LVEF(%) BP LV SV A4C 56.6 ml LV SV A2C 48.9 ml LV SV BP LV CO A4C 4.9 L/min LV CO A2C 4.3 L/min LV CO BP HR A4C 86.75 BPM HR A2C 87.60 BPM LV EDV Index (BP) LA Volume LA Length A4C 4.4 cm LA Length A2C 4.5 cm LA Area A4C s 14.87 cm2 LA Area A2C s 10.45 cm2 LA Vol A4C A-L 42.78 mL LA Vol A2C A-L 20.69 mL LA Vol Biplane A-L 30.1 mL LA Vol/BSA A4C A-L LA Vol/BSA A2C A-L LA Vol/BSA BP A-L 18.7 mL/m2 LA Vol A4C MOD 39.8 mL LA Vol A2C MOD 20.3 mL LA Vol BP MOD 28.6 mL LV Diastology MV E' medial 0.081 (>0.07 m/s) MV E Vmax 1.00 (0.4-1.3 m/s) MV E/E' MED 12.28 (<14) MV E' lateral 0.095 (>0.1 m/s) MV E/E' LAT 10.58 (<14) MV E' Average 0.088 m/s MV E/E'(average) 11.36 Aortic Valve AoV Vmax 2.26 m/s LVOT Vmax 0.67 m/s AoV Peak Grad 20.5 mmHg LVOT Peak Grad 1.8 mmHg AoV Area (Vmax) 0.65 cm2 LVOT VTI 0.124 m AoV VTI 0.420 m LVOT Mean Grad 0.9 mmHg AoV Mean Cristi. 1.57 m/s LVOT SV 27.36 mL AoV Mean Grad 11.1 mmHg LVOT Diam s 1.65 cm AoV Area (VTI) 0.65 cm2 Velocity Ratio 0.30 Mitral Valve MV DT 91 (160-240 msec) MR Vmax 3.39 m/s MV Vmax TIPS 1.04 m/s MR VTI 0.936 m MV Mean Grad 2.0 (<2mmHg) MR Peak Grad 46.0 mmHg MV VTI 0.127 m MR Mean Grad 37.9 mmHg Pulmonary Valve PV Vmax 0.86 (0.5-1.5 m/s) RVOT Vmax 0.53 m/s PV Peak Grad 2.9 mmHg RVOT Peak Gr. 1.1 mmHg PV Mean Cristi 0.54 m/s RVOT VTI 0.086 m PV Mean Grad 1.4 mmHg RVOT Mean Gr. 0.6 mmHg Tricuspid Valve RA Pressure 3.00 mmHg TR Vmax 1.83 m/s TR Peak Grad 13.4 mmHg RVSP (TR) 16.5 mmHg
== END ==
PROVIDERS: PCP Nurse Practitioner Gerontology; Visit Provider Internal Medicine Cardiovascular Disease
DX: I35.0 Nonrheumatic aortic (valve) stenosis (principal); I44.7 Left bundle-branch block, unspecified
CPT/HCPCS: 93306

== ENCOUNTER → 2023-04-16 10:54 | Outpatient (BNVA) | payer MEDICARE, MEDICAID, SELFPAY | PROVIDERS: PCP Nurse Practitioner Gerontology; Visit Provider Internal Medicine Interventional Cardiology ==

== ENCOUNTER 2023-04-16 11:58 | Inpatient (IN) | payer MEDICARE, MEDICAID, SELFPAY ==
--- NOTE | 2023-04-16 12:00 | RT.EKG_ITS ---
APPROVED REPORT Exam: Resting ECG Reason for Exam: chf Patient Location: E HR:92 bpm ECG Measurements Heart Rate 92 AXIS GA 93 P -56 QRSd 171 QRS -36 QT 434 T 144 QTc 536 Conclusion Sinus or ectopic atrial rhythm...P axis (-45,135) Left bundle branch block...QRSd>120, broad/notched R ST elevation secondary to IVCD...Multiple VCG criteria
[2023-04-16 12:16] VITALS: BP 95/61; PULSE 96; RESP 15; O2SAT 100
--- NOTE | 2023-04-16 12:36 | W.ED.GENAD ---
HPI General Mode of arrival: wheelchair. Date/Time Provider Initiated Documentation: 04/16/23 12:01. Information obtained by: RN/MD. History of Present Illness 57 year old F presents to the emergency department with the chief complaint of severe aortic stenosis, described as severe, Patient started experiencing this month(s) (1) and it has been constant. No relieving factors improve symptom(s), No exacerbating factors reported . Patient notes weakness; denies chest pain and fever/chills. Related Data Home Medications Medication Instructions Recorded Confirmed olanzapine 5 mg tablet 5 mg PO DAILY 11/15/20 04/13/23 nitroglycerin 0.4 mg sublingual 0.4 mg sublingual Q5M PRN 01/24/21 04/13/23 tablet (Nitrostat) omeprazole 40 mg capsule,delayed 40 mg PO DAILY #90 caps 03/06/21 04/13/23 release acetaminophen 325 mg tablet 1,000 mg PO BID 05/03/21 04/13/23 (Tylenol) nicotine 10 mg inhalation 1 inh inhalation 4-6XD PRN 10/30/21 04/13/23 cartridge (Nicotrol) trihexyphenidyl 2 mg tablet 2 mg PO TID 01/29/22 04/13/23 albuterol sulfate 90 mcg/actuation 2 puff inhalation BID 04/29/22 04/13/23 aerosol inhaler atorvastatin 40 mg tablet 40 mg PO QHS 04/29/22 04/13/23 buspirone 10 mg tablet 10 mg PO TID 04/29/22 04/13/23 divalproex 500 mg tablet,extended 1,000 mg PO HS 04/29/22 04/13/23 release 24 hr torsemide 20 mg tablet 100 mg PO BID 04/29/22 04/13/23 bisacodyl 10 mg rectal suppository 10 mg MT ONCE PRN 11/05/22 04/13/23 carboxymethylcellulose sodium 0.5 1 drp ophthalmic (eye) TID 11/05/22 04/13/23 % eye drops (Refresh Tears) clozapine 100 mg tablet 300 mg PO BID 11/05/22 04/13/23 clozapine 25 mg tablet 50 mg PO BID 11/05/22 04/13/23 dextromethorphan-guaifenesin 10 10 ml PO Q4H PRN 11/05/22 04/13/23 mg-100 mg/5 mL oral liquid (Safe Tussin DM) ipratropium 0.5 mg-albuterol 3 mg 3 ml inhalation TID PRN 11/05/22 04/13/23 (2.5 mg base)/3 mL nebulization soln levothyroxine 125 mcg capsule 100 mcg PO DAILY 11/05/22 04/13/23 magnesium chloride 64 mg 64 mg PO BID 11/05/22 04/13/23 (magnesium chloride) tablet,delayed release (Mag-Delay) sennosides 8.6 mg-docusate sodium 2 tab-cap PO BID 11/05/22 04/13/23 50 mg tablet (Stool Softener-Laxative) budesonide-formoterol HFA 160 2 puff inhalation BID 11/21/22 04/13/23 mcg-4.5 mcg/actuation aerosol inhaler (Symbicort) lidocaine 4 % topical patch 1 patch topical DAILY 12/01/22 04/13/23 (Salonpas (lidocaine)) megestrol 400 mg/10 mL (40 mg/mL) 400 mg PO DAILY 12/01/22 04/13/23 oral suspension vzlqgtck-lxu-tslha acid 0.4 1 tab PO DAILY 12/15/22 04/13/23 mg-lycopene 300 mcg-lutein 250 mcg tablet (Cerovite Senior) potassium chloride 10 mEq 40 meq PO DAILY 12/15/22 04/13/23 tablet,extended release lactulose 10 gram/15 mL oral 10 g PO DAILY 04/13/23 04/13/23 solution spironolactone 25 mg tablet 25 mg PO BID 04/13/23 04/13/23 Previous Rx's Medication Instructions Recorded omeprazole 40 mg capsule,delayed 40 mg PO DAILY #90 caps 03/06/21 release Allergies Allergy/AdvReac Type Severity Reaction Status Date / Time prednisone Allergy Unknown Verified 12/18/22 13:43 acetaminophen [From Percocet] Allergy Verified 12/18/22 13:43 lithium Allergy Verified 12/18/22 13:43 oxycodone [From OxyContin] Allergy Verified 12/18/22 13:43 Penicillins Allergy Verified 12/18/22 13:43 pioglitazone Allergy Verified 12/18/22 13:43 Sulfa (Sulfonamide Allergy Verified 12/18/22 13:43 Antibiotics) tramadol Allergy Verified 12/18/22 13:43 General Stated Complaint: SOB DIONE: 3 Review of Systems All systems reviewed & are unremarkable except as noted in HPI and below Constitutional Constitutional: Denies chills and Denies fever(s) Cardiovascular Cardiovascular: Denies chest pain and Reports dyspnea Respiratory Respiratory: Denies cough and Reports dyspnea Gastrointestinal Gastrointestinal: Denies nausea and Denies vomiting Musculoskeletal Musculoskeletal: Denies joint swelling Exam Const Orientation: alert HENMT Head: normal to inspection Ears: external ears normal General nose exam: external nose normal Mouth: moist mucous membranes Eyes General: appearance normal, both eyes and all related structures Neck Neck: normal visual inspection Resp Auscultation: clear to auscultation bilaterally Cardio Rate: regular rate Heart Sounds: murmur GI Palpation: soft and nontender Skin General skin exam: no rashes or lesions noted Neuro General: patient alert Extrem General: normal to inspection Course Vital Signs Vital signs: Vital Signs Pulse 96 H 04/16/23 12:16 Respiratory Rate 15 04/16/23 12:16 Blood Pressure 95/61 L 04/16/23 12:16 Pulse Oximetry 100 04/16/23 12:16 Temperature Source Tympanic 04/16/23 12:16 Pulse 96 H 04/16/23 12:16 Respiratory Rate 15 04/16/23 12:16 Blood Pressure 95/61 L 04/16/23 12:16 Blood Pressure Position Sitting 04/16/23 12:16 Pulse Oximetry 100 04/16/23 12:16 Oxygen Delivery Method Room Air 04/16/23 12:16 Oxygen Flow Rate 0 04/16/23 12:16 Pain Level 5 04/16/23 12:16 Medical Decision Making 57 yo female with hx of schizophrenia, HFrEF, diabetes, who comes down from the cardiology office with concerns for severe to critical aortic stenosis. Due to patient's chronic psych disorder her history is limited but she is accompanied by the nurse practitioner that cares for her at her [facility]. She advises that over the last year and especially a few months she has had a slow decline to the point where she can barely get out of bed without becoming short of breath. She had an echo done in preparation for her outpatient cardiology visit today that showed that her ejection fraction had decreased to 30 to 35% with a calcific aortic stenosis rated as severe to critical by the reading consumer insight manager. She was dyspneic with any type of movement in the office today and had a BP in the 90s systolic so was sent down to the emergency department for transfer to a tertiary care facility. Patient is alert and does answer simple questions such as where she is and her name. She has clear lung sounds on exam legs are not severely swollen no calf tenderness. Any type of movement in the bed she does become visibly dyspneic which is likely from her critical aortic stenosis. Will obtain EKG troponin CBC CMP chest x-ray and consult with [facility] cardiology about potential transfer labs show mild adrienne, probnp elevated, troponin negative, pt still with sysotlic in the 90's which she seems to be in frequently on review of past visits. will discuss with cardiology at [facility] [place] with [facility] PA Katie Le and they accept to their facility but can't take her until tomorrow, accepting provider is Dr. Cain. They have no formal additional recommended therapies to administer to the patient at this current time. Will discuss with hospitalist about admission until she can be transferred tomorrow LA/LV moderately dilated, RA/RV normal sizes. Akinesis of the interventricular septum with parodoxical motion superimposed on moderate global hypokinesis, EF 30-35%. Normal RV function. Calcific aortic stenosis with calculated BEATRIZ of 0.65 cm2 ( critical ) which is out of proportion to the peak gradient of 20.5 mmHg and mean gradient of 11.1 mmHg. The aortic stenosis is probably severe to critical, associated with a low flow state. Clinical or dobutamine echo correlation suggesed. Moderate to severe mitral annular calcification, mild MS, mild MR. Normal TV with trace TR,no phtn. No pericardial effusion. Differential Diagnosis Differential Diagnosis: aortic stenosis, anemia, acs Medical Records Medical records reviewed: Yes I reviewed the patient's medical records. Imaging Data Radiologic Study: Attestation: I personally reviewed and interpreted this imaging study as follows: Imaging: X-Ray Radiologist's impression: no acute findings Lab Data Lab results reviewed: Yes I reviewed the patient's lab results. Quality:[facility] Health Related Social Needs: No Data to Display PFSH All Active Problems (Updated 04/16/23 @ 14:42 by Dirk Baker MD) Aortic stenosis, severe (Acute) Hypotension (Acute) Vomiting (Acute) Weight loss (Acute) Nicotine dependence, cigarettes, uncomplicated (Acute) Pulmonary emphysema (Acute) Coronary artery disease (Chronic) Personal history of nicotine dependence (Acute) Infected sebaceous cyst of skin (Acute) Pancreatic cyst (Acute) Aortic stenosis (Chronic) AVANI (obstructive sleep apnea) (Acute) Left bundle branch block (Acute) Per [facility] states that is not on her current list. Per [facility] states she does see a consumer insight manager GERD (gastroesophageal reflux disease) (Acute) Hyperlipemia (Acute) CHF (congestive heart failure) (Chronic) Diabetes mellitus type II, controlled (Acute) Hypothyroid (Chronic) Secondary Parkinson disease (Acute) Cognitive impairment (Acute) Schizoaffective disorder (Chronic) Diastolic dysfunction (Chronic) Discharge planning issues (Acute) Apneic episode (Acute) Acute metabolic encephalopathy (Acute) Bowel obstruction (Acute) Anemia (Chronic) Chronic constipation (Acute) Neuroleptic-induced parkinsonism (Acute) Well woman exam with routine gynecological exam (Acute) Medical History At risk for aspiration Gastroparesis, Food contents despite 8 hour NPO hold before procedure. 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 isn't allowed to have items in her room when she is manic. Myocardial infarction 2018 per JEWELRY BEARING MAKER at [facility]- has not seen cards Protein-calorie malnutrition, mild Dehydration Community acquired pneumonia DVT prophylaxis Rib pain on right side Electrolyte abnormality Hyperthyroidism Pancreatitis COPD (chronic obstructive pulmonary disease) Alcoholism in remission Acute kidney injury Tobacco dependence History of alcohol abuse Bipolar 1 disorder Diabetic neuropathy Heart murmur Subdural hematoma small right September 2018 2/2 mechanical fall Surgical History History of esophagogastroduodenoscopy (EGD) (~11/2022) biopsies taken S/P thoracotomy H/O abdominal surgery Social History Smoking/Tobacco Use Status: Former Tobacco Use Quit Date: 11/07/21 Tobacco: How many years used: 36 Smoking risk assessment performed?: Yes Alcohol Intake: former Drug use: Current Sobriety Substance use type: does not use Details: Nicotrol inhalers Housing: fpc current occupation: Disabled. Lives at [facility] Seatbelt use: always Additional Social history: Resident @ [facility] Discharge Plan Disposition Patient Disposition: Admit to [facility] Condition: Stable Condition: Stable Discharge Details Chief Complaint: GenMedical Clinical Impression: Aortic stenosis, severe Primary Care Provider: Aranza Mackenzie ED Provider: Dirk Baker [place] Meds and New Rx's Prescriptions: No Action levothyroxine 125 mcg capsule 100 mcg PO DAILY trihexyphenidyl 2 mg tablet 2 mg PO TID clozapine 25 mg tablet 50 mg PO BID Nicotrol 10 mg cartridge 1 inh inhalation 4-6XD PRN torsemide 20 mg tablet 100 mg PO BID Mag-Delay 64 mg tablet,delayed release (DR/EC) 64 mg PO BID atorvastatin 40 mg tablet 40 mg PO QHS divalproex 500 mg tablet extended release 24 hr 1,000 mg PO HS budesonide-formoterol [Symbicort] 160-4.5 mcg/actuation HFA aerosol inhaler 2 puff inhalation BID nitroglycerin [Nitrostat] 0.4 mg tablet, sublingual 0.4 mg sublingual Q5M PRN Rx Instructions: do not exceed 3 doses per episode albuterol sulfate 90 mcg/actuation HFA aerosol inhaler 2 puff inhalation BID carboxymethylcellulose sodium [Refresh Tears] 0.5 % drops 1 drp ophthalmic (eye) TID dextromethorphan-guaifenesin [Safe Tussin DM] 10-100 mg/5 mL liquid 10 ml PO Q4H PRN sennosides-docusate sodium [Stool Softener-Laxative] 8.6-50 mg tablet 2 tab-cap PO BID bisacodyl 10 mg suppository 10 mg MT ONCE PRN Rx Instructions: 1 suppository per rectum as needed for no bowel movement in 4 days ipratropium-albuterol 0.5 mg-3 mg(2.5 mg base)/3 mL solution for nebulization 3 ml inhalation TID PRN Patient Comments: and as needed q4h buspirone 10 mg tablet 10 mg PO TID potassium chloride 10 mEq tablet extended release 40 meq PO DAILY Cerovite Senior 0.4 mg-300 mcg- 250 mcg tablet 1 tab PO DAILY acetaminophen [Tylenol] 325 mg tablet 1,000 mg PO BID olanzapine 5 mg tablet 5 mg PO DAILY clozapine 100 mg tablet 300 mg PO BID omeprazole 40 mg capsule,delayed release(DR/EC) 40 mg PO DAILY Qty: 90 0RF megestrol 400 mg/10 mL (40 mg/mL) Suspension 400 mg PO DAILY lidocaine [Salonpas (lidocaine)] 4 % Adhesive Patch,Medicated 1 patch TOPICAL DAILY spironolactone 25 mg tablet 25 mg PO BID lactulose 10 gram/15 mL solution 10 g PO DAILY
[2023-04-16 12:38] VITALS: BP 97/60; PULSE 92; RESP 16; O2SAT 100
[2023-04-16 12:54] LABS: BE (Venous) 0 mmol/L (-2-3); HCO3 (Venous) 24 mmol/L (23-28); O2 Sat (Venous) 71 %; TCO2 (Venous) 22 mmol/L (24-29); pCO2 (Venous) 37 mmHg (41-51); pH (Venous) 7.43 (7.31-7.41); pO2 (Venous) 38 mmHg
[2023-04-16 12:54] LABS: Absolute Basophil Count 0.04 10^3/uL (0.0-0.2); Absolute Lymphocyte Count 2.87 10^3/uL (1.2-3.4); Absolute Monocyte Count 1.06 10^3/uL (0.1-0.8); Absolute Neutrophil Count 6.13 10^3/uL (1.2-6.7); Basophils % 0.4; HCT 37.3 % (36.0-46.0); HGB 12.4 g/dL (11.2-15.7); Lymphocytes % 28.1; MCHC 33.2 % (32.0-36.0); MCV 93 fL (80-95); MPV 10.2 fL (8.0-11.0); Monocytes % 10.4; Neutrophils % 60.1; Platelet Count 182 10^3/uL (130-400); RDW 14.3 % (11.7-14.6); RDW-SD 48.8 fL
[2023-04-16 13:09] LABS: INR 1.1 (0.9-1.1); PTT Activated 30.7 sec (23.6-32.8)
[2023-04-16 13:22] LABS: ALT 19 U/L (14-59); AST 29 U/L (15-37); Albumin 2.1 g/dL (3.4-5.0); Alkaline Phosphatase 94 U/L (46-116); Anion Gap 13.3 mmol/L (3-11); BUN 25 mg/dL (7-18); Bilirubin, Total 0.4 mg/dL (0.2-1.0); CO2 22.7 mmol/L (21.0-32.0); CREATININE 2.3 mg/dL (0.55-1.02); Calcium 8.2 mg/dL (8.5-10.1); Chloride 95 mmol/L (98-107); Estimated GFR 24.19 (mL/min/1.73m2); Glucose 129 mg/dL (74-106); Magnesium 2.2 mg/dL (1.8-2.4); NT-proBNP 17253 pg/mL (<300); Sodium 131 mmol/L (136-145); TSH (W/Ref FT4) 0.28 uIU/mL (0.36-3.74); Total Protein 6.7 g/dL (6.4-8.2); Troponin I < 50 ng/L (< or =60); VALPROIC ACID 56.1 ug/mL
--- NOTE | 2023-04-16 13:22 | DI.RAD_ITS ---
Exam(s) XR PORTABLE CHEST AP EXAM: XR PORTABLE CHEST AP CLINICAL HISTORY: shortness ofbreath TECHNIQUE: 2D digital imaging was performed. COMPARISON: No exams were available for comparison FINDINGS: LUNGS: Clear. No pleural abnormality seen. HEART: enlarged. AORTA: Normal diameter. BONES: Unremarkable for age. Soft tissues: Unremarkable. IMPRESSION: No acute findings. DATA REPOSITORY: RADIATION DOSE DELIVERED:
[2023-04-16 13:39] LABS: FREE T4 1.15 ng/dL (0.76-1.46)
--- NOTE | 2023-04-16 15:15 | HPE_ITS ---
Date of service: 04/16/23 Time of Service: 15:15 Assessment and Plan Assessment and plan (1) Aortic stenosis, severe: Status: Acute Assessment and plan: Await transfer to [facility] [place] an evaluation for a TAVR. MOnitor volume status. (2) HFrEF (heart failure with reduced ejection fraction): Status: Chronic Assessment and plan: LVEF of 30-35%. Continue outpatient regimen. As above. (3) Hypotension: Status: Acute Assessment and plan: I will not increase her diuresis at this time given suspicion for an impending cardiogenic shock, as per cardiology note today. Qualifiers: Hypotension type: other hypotension type Qualified Code(s): I95.89 - Other hypotension (4) Coronary artery disease: Status: Chronic Assessment and plan: Continue outpatient management. (5) DVT prophylaxis: Status: Acute Assessment and plan: SC heparin (6) Discharge planning issues: Status: Acute Assessment and plan: Full code Anticipate transfer to [facility] cardiology tomorrow History of Present Illness History of Present Illness Chief Complaint: ESTRADA Narrative: Ms Shook is a 57 year old female with symptomatic severe to critical aortic stenosis, CHFrEF (LVEF of 30-35% by echo 04/14/23), NIDDM2, AVANI, schizoaffective d/o, who was referred to [facility] ED from her outpatient cardiology appointment today for transfer for an evaluation for a TAVR due to her severe dyspnea on even minimal exertion. She was accepted in transfer to [facility] Cardiology service under the care of Dr Cain pending bed availability. The patient states that she is short of breath and uncomfortable. She is otherwise not answering my questions. Review of Systems All systems reviewed & are unremarkable except as noted in HPI and below PFSH All Active Problems (Updated 04/16/23 @ 19:56 by Sabra Olivares MD) DVT prophylaxis (Acute) HFrEF (heart failure with reduced ejection fraction) (Chronic) Aortic stenosis, severe (Acute) Hypotension (Acute) Vomiting (Acute) Weight loss (Acute) Nicotine dependence, cigarettes, uncomplicated (Acute) Pulmonary emphysema (Acute) Coronary artery disease (Chronic) Personal history of nicotine dependence (Acute) Infected sebaceous cyst of skin (Acute) Pancreatic cyst (Acute) Aortic stenosis (Chronic) AVANI (obstructive sleep apnea) (Acute) Left bundle branch block (Acute) Per [facility] states that is not on her current list. Per [facility] states she does see a roto mixer operator GERD (gastroesophageal reflux disease) (Acute) Hyperlipemia (Acute) CHF (congestive heart failure) (Chronic) Diabetes mellitus type II, controlled (Acute) Hypothyroid (Chronic) Secondary Parkinson disease (Acute) Cognitive impairment (Acute) Schizoaffective disorder (Chronic) Diastolic dysfunction (Chronic) Discharge planning issues (Acute) Apneic episode (Acute) Acute metabolic encephalopathy (Acute) Bowel obstruction (Acute) Anemia (Chronic) Chronic constipation (Acute) Neuroleptic-induced parkinsonism (Acute) Well woman exam with routine gynecological exam (Acute) Medical History At risk for aspiration Gastroparesis, Food contents despite 8 hour NPO hold before procedure. Difficult intravenous access Has required Ultrasound IV/Midline Heart failure Other secondary parkinsonism Other emphysema Schizoid personality disorder Extended spectrum beta lactamase (ESBL) resistance Partial intestinal obstruction Auditory hallucinations Per [facility] DUMP GRADER: her baseline she has auditory hallucinations hears Satan, goes into episodes of marjan, history of being hypersexual, history of throwing items, pt. isn't allowed to have items in her room when she is manic. Myocardial infarction 2018 per DUMP GRADER at [facility]- has not seen cards Protein-calorie malnutrition, mild Dehydration Community acquired pneumonia DVT prophylaxis Rib pain on right side Electrolyte abnormality Hyperthyroidism Pancreatitis COPD (chronic obstructive pulmonary disease) Alcoholism in remission Acute kidney injury Tobacco dependence History of alcohol abuse Bipolar 1 disorder Diabetic neuropathy Heart murmur Subdural hematoma small right September 2018 2/2 mechanical fall Surgical History History of esophagogastroduodenoscopy (EGD) (~11/2022) biopsies taken S/P thoracotomy H/O abdominal surgery Social History Smoking/Tobacco Use Status: Former Tobacco Use Quit Date: 11/07/21 Tobacco: How many years used: 36 Smoking risk assessment performed?: Yes Alcohol Intake: former Drug use: Current Sobriety Substance use type: does not use Details: Nicotrol inhalers Housing: longterm current occupation: Disabled. Lives at [facility] Seatbelt use: always Additional Social history: Resident @ [facility] Meds Allergies and Home Medications Allergies Allergy/AdvReac Type Severity Reaction Status Date / Time prednisone Allergy Unknown Verified 12/18/22 13:43 acetaminophen [From Percocet] Allergy Verified 12/18/22 13:43 lithium Allergy Verified 12/18/22 13:43 oxycodone [From OxyContin] Allergy Verified 12/18/22 13:43 Penicillins Allergy Verified 12/18/22 13:43 pioglitazone Allergy Verified 12/18/22 13:43 Sulfa (Sulfonamide Allergy Verified 12/18/22 13:43 Antibiotics) tramadol Allergy Verified 12/18/22 13:43 Home Medications Medication Instructions Recorded Confirmed Type olanzapine 5 mg tablet 5 mg PO DAILY 11/15/20 04/13/23 History nitroglycerin 0.4 mg sublingual 0.4 mg sublingual Q5M PRN 01/24/21 04/13/23 History tablet (Nitrostat) omeprazole 40 mg capsule,delayed 40 mg PO DAILY #90 caps 03/06/21 04/13/23 Rx release acetaminophen 325 mg tablet 1,000 mg PO BID 05/03/21 04/13/23 History (Tylenol) nicotine 10 mg inhalation 1 inh inhalation 4-6XD PRN 10/30/21 04/13/23 History cartridge (Nicotrol) trihexyphenidyl 2 mg tablet 2 mg PO TID 01/29/22 04/13/23 History albuterol sulfate 90 mcg/actuation 2 puff inhalation BID 04/29/22 04/13/23 History aerosol inhaler atorvastatin 40 mg tablet 40 mg PO QHS 04/29/22 04/13/23 History buspirone 10 mg tablet 10 mg PO TID 04/29/22 04/13/23 History divalproex 500 mg tablet,extended 1,000 mg PO HS 04/29/22 04/13/23 History release 24 hr torsemide 20 mg tablet 100 mg PO BID 04/29/22 04/13/23 History bisacodyl 10 mg rectal suppository 10 mg [place] ONCE PRN 11/05/22 04/13/23 History carboxymethylcellulose sodium 0.5 1 drp ophthalmic (eye) TID 11/05/22 04/13/23 History % eye drops (Refresh Tears) clozapine 100 mg tablet 300 mg PO BID 11/05/22 04/13/23 History clozapine 25 mg tablet 50 mg PO BID 11/05/22 04/13/23 History dextromethorphan-guaifenesin 10 10 ml PO Q4H PRN 11/05/22 04/13/23 History mg-100 mg/5 mL oral liquid (Safe Tussin DM) ipratropium 0.5 mg-albuterol 3 mg 3 ml inhalation TID PRN 11/05/22 04/13/23 History (2.5 mg base)/3 mL nebulization soln levothyroxine 125 mcg capsule 100 mcg PO DAILY 11/05/22 04/13/23 History magnesium chloride 64 mg 64 mg PO BID 11/05/22 04/13/23 History (magnesium chloride) tablet,delayed release (Mag-Delay) sennosides 8.6 mg-docusate sodium 2 tab-cap PO BID 11/05/22 04/13/23 History 50 mg tablet (Stool Softener-Laxative) budesonide-formoterol HFA 160 2 puff inhalation BID 11/21/22 04/13/23 History mcg-4.5 mcg/actuation aerosol inhaler (Symbicort) lidocaine 4 % topical patch 1 patch topical DAILY 12/01/22 04/13/23 History (Salonpas (lidocaine)) megestrol 400 mg/10 mL (40 mg/mL) 400 mg PO DAILY 12/01/22 04/13/23 History oral suspension mtlyagpy-thh-pvxpt acid 0.4 1 tab PO DAILY 12/15/22 04/13/23 History mg-lycopene 300 mcg-lutein 250 mcg tablet (Cerovite Senior) potassium chloride 10 mEq 40 meq PO DAILY 12/15/22 04/13/23 History tablet,extended release lactulose 10 gram/15 mL oral 10 g PO DAILY 04/13/23 04/13/23 History solution spironolactone 25 mg tablet 25 mg PO BID 04/13/23 04/13/23 History Exam Narrative Exam Narrative: General: Middle-aged female who is mildly to moderately dyspneic, poor history provider, A&Ox1 at least Neurological: No focal deficits Psychiatric: Difficult to assess - the patient is answering only minimal questions Skin: visible skin intact HEENT: Atraumatic, normocephalic, EOMI, MM, clear oropharynx, no submandibular or cervical lymphadenopathy, no goiter, + JVD Cardiovascular: RRR, + ALEX Lungs: Rales B bases Gastrointestinal: soft, nontender, nondistended Genitourinary: deferred Extremities: no edema/clubbing/cyanosis BLEs Results Imaging Additional studies: CXR: No acute findings. EKG: LBBB, HR 91 Labs 04/16/23 12:14 04/17/23 06:54 Labs: Laboratory Results - last 24 hr 04/16/23 04/16/23 12:14 12:49 WBC 10.20 RBC 4.00 Hgb 12.4 Hct 37.3 MCV 93 MCH 31.0 MCHC 33.2 RDW 14.3 Plt Count 182 MPV 10.2 Immature Gran % 1.0 Neutrophils % 60.1 Lymphocytes % 28.1 Monocytes % 10.4 Eosinophils % 0.0 Basophils % 0.4 Nucleated RBC % 0.0 Absolute Neutrophils 6.13 Absolute Lymphocytes 2.87 Absolute Monocytes 1.06 H Absolute Eosinophils 0.00 Absolute Basophils 0.04 PT 11.0 INR 1.1 APTT 30.7 VBG pH 7.43 H VBG pCO2 37 L VBG pO2 38 VBG HCO3 24 VBG Total CO2 22 L VBG O2 Saturation 71 VBG Base Excess 0 Sodium 131 L Potassium 4.0 Chloride 95 L Carbon Dioxide 22.7 Anion Gap 13.3 H BUN 25 H Creatinine 2.3 H Est GFR (CKD-EPI 2020) 24.19 Glucose 129 H Calcium 8.2 L Magnesium 2.2 Total Bilirubin 0.4 AST 29 ALT 19 Alkaline Phosphatase 94 Troponin I < 50 NT-Pro-B Natriuret Pep 42894 H Total Protein 6.7 Albumin 2.1 L TSH 0.28 L Free T4 1.15 Valproic Acid 56.1 Last Vital Signs Pulse 92 H 04/16/23 12:38 Resp 16 04/16/23 12:38 BP 97/60 L 04/16/23 12:38 Pulse Ox 100 04/16/23 12:38 Time Spent Time spent with Patient: 55-74 minutes Time was spent: preparing to see the patient(eg.review tests), obtaining and/or reviewing separately otained hiistory, ordering medications,tests, procedures, referring, communicating with other health professional healthcare representative, indepentently interpreting results, counseling the patient and care coordination
[2023-04-16 16:22] VITALS: RESP 16
[2023-04-16 16:40] VITALS: BP 93/59; PULSE 73; RESP 19; TEMP 37.2; O2SAT 100
[2023-04-16 16:50] VITALS: BP 93/59; PULSE 73; RESP 24; TEMP 37.2; O2SAT 100
[2023-04-16 16:58] LABS: Troponin I < 50 ng/L (< or =60)
[2023-04-16] MEDS: Heparin 5,000 UNITS/ML VIAL 5000 UNITS SC (19:30)
[2023-04-16] MEDS: Normal Saline Flush 10 ML SYR IVP (19:30)
[2023-04-16] MEDS: Torsemide 20 MG TAB 100 MG PO (19:31)
[2023-04-16] MEDS: Refresh PLUS Eye Drops 0.4ml OP (19:31)
[2023-04-16] MEDS: Magnesium Chloride 64 MG TABCR PO (19:32)
[2023-04-16] MEDS: Trihexyphenidyl 2 MG TAB PO (19:32)
[2023-04-16] MEDS: Spironolactone 25 MG TAB PO (19:32)
[2023-04-16] MEDS: busPIRone 5 MG TAB 10 MG PO (19:32)
[2023-04-16] MEDS: Acetaminophen 500 MG TAB 1000 MG PO (19:32)
[2023-04-16] MEDS: Sennosides/Docusate Sodium TAB 2 TAB PO (19:32)
[2023-04-16] MEDS: Albuterol HFA 8 GM 60 PUFF INH IH (19:49)
[2023-04-16] MEDS: Budesonide/Formoterol 160/4.5 6 GM 60 PUFF INH IH (19:49)
[2023-04-16 22:57] VITALS: BP 97/65; PULSE 90; RESP 24; TEMP 36; O2SAT 100
[2023-04-17 04:10] VITALS: BP 89/62; PULSE 86; RESP 18; TEMP 36.1; O2SAT 100
[2023-04-17] MEDS: Heparin 5,000 UNITS/ML VIAL 5000 UNITS SC ×2 (04:18→12:10)
[2023-04-17] MEDS: Budesonide/Formoterol 160/4.5 6 GM 60 PUFF INH IH (07:42)
[2023-04-17] MEDS: Albuterol HFA 8 GM 60 PUFF INH IH (07:43)
[2023-04-17 07:51] LABS: BUN 22 mg/dL (7-18); CREATININE 1.7 mg/dL (0.55-1.02); Chloride 101 mmol/L (98-107); Estimated GFR 34.76 (mL/min/1.73m2); Glucose 62 mg/dL (74-106); Potassium 3.5 mmol/L (3.5-5.1); Sodium 137 mmol/L (136-145)
[2023-04-17 09:12] VITALS: BP 90/55; PULSE 84; RESP 16; TEMP 36.6; O2SAT 99
[2023-04-17] MEDS: Normal Saline Flush 10 ML SYR IVP (10:14)
[2023-04-17] MEDS: Torsemide 20 MG TAB 100 MG PO (10:15)
[2023-04-17] MEDS: Multivitamin TAB 1 TAB PO (10:16)
[2023-04-17] MEDS: Sennosides/Docusate Sodium TAB 2 TAB PO (10:17)
[2023-04-17] MEDS: Magnesium Chloride 64 MG TABCR PO (10:17)
[2023-04-17] MEDS: OLANZapine 5 MG TAB PO (10:17)
[2023-04-17] MEDS: Spironolactone 25 MG TAB PO (10:17)
[2023-04-17] MEDS: Trihexyphenidyl 2 MG TAB PO ×2 (10:18→13:49)
[2023-04-17] MEDS: Acetaminophen 500 MG TAB 1000 MG PO (10:18)
[2023-04-17] MEDS: busPIRone 5 MG TAB 10 MG PO ×2 (10:18→13:49)
[2023-04-17] MEDS: Omeprazole 20 MG CAPCR 40 MG PO (10:19)
[2023-04-17] MEDS: Potassium Chloride 20 MEQ TABCR 40 MEQ PO (10:19)
[2023-04-17] MEDS: Lactulose 20 GM/30 ML CUP 10 GM PO (10:20)
--- NOTE | 2023-04-17 11:19 | PDOC.CMIN ---
Date of service: 04/17/23 Time of Service: 11:19 Care Management Initial Assmt Initial Assessment REASON FOR HOSPITALIZATION:: Critical PFSH All Active Problems (Updated 04/16/23 @ 19:56 by Sabra Olivares MD) DVT prophylaxis (Acute) HFrEF (heart failure with reduced ejection fraction) (Chronic) Aortic stenosis, severe (Acute) Hypotension (Acute) Vomiting (Acute) Weight loss (Acute) Nicotine dependence, cigarettes, uncomplicated (Acute) Pulmonary emphysema (Acute) Coronary artery disease (Chronic) Personal history of nicotine dependence (Acute) Infected sebaceous cyst of skin (Acute) Pancreatic cyst (Acute) Aortic stenosis (Chronic) AVANI (obstructive sleep apnea) (Acute) Left bundle branch block (Acute) Per [facility] states that is not on her current list. Per [facility] states she does see a quality compliance coordinator GERD (gastroesophageal reflux disease) (Acute) Hyperlipemia (Acute) CHF (congestive heart failure) (Chronic) Diabetes mellitus type II, controlled (Acute) Hypothyroid (Chronic) Secondary Parkinson disease (Acute) Cognitive impairment (Acute) Schizoaffective disorder (Chronic) Diastolic dysfunction (Chronic) Discharge planning issues (Acute) Apneic episode (Acute) Acute metabolic encephalopathy (Acute) Bowel obstruction (Acute) Anemia (Chronic) Chronic constipation (Acute) Neuroleptic-induced parkinsonism (Acute) Well woman exam with routine gynecological exam (Acute) Medical History At risk for aspiration Gastroparesis, Food contents despite 8 hour NPO hold before procedure. 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 isn't allowed to have items in her room when she is manic. Myocardial infarction 2017 per CRIMINAL INTELLIGENCE ANALYST at [facility]- has not seen cards Protein-calorie malnutrition, mild Dehydration Community acquired pneumonia DVT prophylaxis Rib pain on right side Electrolyte abnormality Hyperthyroidism Pancreatitis COPD (chronic obstructive pulmonary disease) Alcoholism in remission Acute kidney injury Tobacco dependence History of alcohol abuse Bipolar 1 disorder Diabetic neuropathy Heart murmur Subdural hematoma small right September 2018 2/2 mechanical fall Surgical History History of esophagogastroduodenoscopy (EGD) (~11/2022) biopsies taken S/P thoracotomy H/O abdominal surgery Social History Smoking/Tobacco Use Status: Former Tobacco Use Quit Date: 11/07/21 Tobacco: How many years used: 36 Smoking risk assessment performed?: Yes Alcohol Intake: former Drug use: Current Sobriety Substance use type: does not use Details: Nicotrol inhalers Housing: retirement current occupation: Disabled. Lives at [facility] Seatbelt use: always Additional Social history: Resident @ [facility]R SDOH(Care Management) Screening Will the Patient Participate in the Screening?: Yes Do you worry about having a steady place to live?: no Problems where you live: no known problems In the past 12 months, have you had to go without electric, gas, oil or water in your home?: no Have you or anyone in your house had to go without enough food to eat?: no Has lack of transportation kept you from medical appointments or from doing things needed for daily living?: no Has anyone in your support network made you feel unsafe for any reason?: no
[2023-04-17] MEDS: Refresh PLUS Eye Drops 0.4ml OP ×2 (11:25→13:49)
[2023-04-17 11:40] VITALS: BP 94/64; PULSE 92; RESP 18; TEMP 36.8; O2SAT 100
--- NOTE | 2023-04-17 13:20 | DSE_ITS ---
Date of service: 04/17/23 Time of Service: 13:20 DS: Diagnosis Discharge Diagnosis (1) Aortic stenosis, severe: Status: Acute Asessment and Plan: severe to critical (2) HFrEF (heart failure with reduced ejection fraction): Status: Chronic (3) Hypotension: Status: Acute (4) Acute on chronic kidney failure: Status: Acute (5) Coronary artery disease: Status: Chronic (6) Cognitive impairment: Status: Acute (7) Secondary Parkinson disease: Status: Acute (8) Schizophrenia: Status: Suspected (9) Diabetes mellitus type II, controlled: Status: Acute Discharge Plan Disposition Patient Disposition: Transfer-Acute Inpatient Care Specific Acute Inpt Facility: [facility] Condition: Serious Discharge Details Reason For Visit: Critical Admit Date/Time: 04/16/23 15:15 Admit Provider: Sabra Olivares Attending Provider: Sabra Olivares Primary Care Provider: Aranza Mackenzie [facility] Hospital Course: Ms Shook is a 57 year old female with symptomatic severe to critical aortic stenosis and CHFrEF (LVEF of 30-35% by echo 04/14/23), NIDDM2, AVANI, schizoaffective d/o/schizophrenia, who was a patient on [facility] hospitalist service from 04/16/2023 until 04/17/2023 while awaiting a bed at [facility] where she was accepted in transfer to the cardiology service under the care of Dr Cain for an evaluation for a TAVR. She was hypotensive to the 90s systolic, but perfusing. She was maintained on her outpatient diuretic regimen as she was saturating adequately on RA (100%). Her symptoms happen primarily with ESTRADA. She was evaluated by cardiology in the office earlier yesterday. At that time, she was rather dyspneic, necessitating a referral to the ER for a transfer, given her echocardiogram results from the day before, where she was found a new systolic dysfunction with LVEF of 30-35%, akinesis of the interventricular septum with paradoxical motion superimposed on moderate global hypokinesis, and severe to critical aortic stenosis. The patient was hypotensive in the clinic as well. Based on this, there was a concern that the patient was going into cardiogenic shock. During her stay on the hospitalist service, her SBPs have remained in the 90s. She is stable for transfer to [facility] today and is agreeable to transfer, although her understanding of the clinical situation is limited. Her mother, Marylou Wang, consents for her. Her number is [phone]. Care for patient as well as completion of her transfer summary on day of transfer took 45 minutes. The list of medications below reflects the patient's outpatient prescriptions. Please, look at MAR for the list of her current inpatient medications. Home Meds and New Rx's Prescriptions: No Action levothyroxine 125 mcg capsule 100 mcg PO DAILY trihexyphenidyl 2 mg tablet 2 mg PO TID clozapine 25 mg tablet 50 mg PO BID Nicotrol 10 mg cartridge 1 inh inhalation 4-6XD PRN torsemide 20 mg tablet 100 mg PO BID Mag-Delay 64 mg tablet,delayed release (DR/EC) 64 mg PO BID atorvastatin 40 mg tablet 40 mg PO QHS divalproex 500 mg tablet extended release 24 hr 1,000 mg PO HS budesonide-formoterol [Symbicort] 160-4.5 mcg/actuation HFA aerosol inhaler 2 puff inhalation BID nitroglycerin [Nitrostat] 0.4 mg tablet, sublingual 0.4 mg sublingual Q5M PRN Rx Instructions: do not exceed 3 doses per episode albuterol sulfate 90 mcg/actuation HFA aerosol inhaler 2 puff inhalation BID carboxymethylcellulose sodium [Refresh Tears] 0.5 % drops 1 drp ophthalmic (eye) TID dextromethorphan-guaifenesin [Safe Tussin DM] 10-100 mg/5 mL liquid 10 ml PO Q4H PRN sennosides-docusate sodium [Stool Softener-Laxative] 8.6-50 mg tablet 2 tab-cap PO BID bisacodyl 10 mg suppository 10 mg NC ONCE PRN Rx Instructions: 1 suppository per rectum as needed for no bowel movement in 4 days ipratropium-albuterol 0.5 mg-3 mg(2.5 mg base)/3 mL solution for nebulization 3 ml inhalation TID PRN Patient Comments: and as needed q4h buspirone 10 mg tablet 10 mg PO TID potassium chloride 10 mEq tablet extended release 40 meq PO DAILY Cerovite Senior 0.4 mg-300 mcg- 250 mcg tablet 1 tab PO DAILY acetaminophen [Tylenol] 325 mg tablet 1,000 mg PO BID olanzapine 5 mg tablet 5 mg PO DAILY clozapine 100 mg tablet 300 mg PO BID omeprazole 40 mg capsule,delayed release(DR/EC) 40 mg PO DAILY Qty: 90 0RF megestrol 400 mg/10 mL (40 mg/mL) Suspension 400 mg PO DAILY lidocaine [Salonpas (lidocaine)] 4 % Adhesive Patch,Medicated 1 patch TOPICAL DAILY spironolactone 25 mg tablet 25 mg PO BID lactulose 10 gram/15 mL solution 10 g PO DAILY Discharge Instructions Stand Alone Forms: Nursing Discharge Form Activity:: bedrest, turn Q2H Equipment/Supplies:: reel and rewinder operator Diet:: Low Sodium Discharge Orders Discharge Orders: Discharge Order (Routine); Ordered 04/17/23 Ordered By: Sabra Olivares Discharge Data Discharge Date/Time-TO BE ENTERED AT DEPARTURE: 04/17/23 14:27 DS: Summary Time Spent with Patient providing and/or coordinating discharge services: Greater than 30 minutes Status at Discharge Functional status at discharge: wheelchair bound Overall status at discharge: patient is not back to baseline Mental Status: mental status grossly normal (Her normal is A&Ox1) Speech and Movement: speech and movement normal Mood: congruent mood Affect: normal affect Quality:SDOH Health Related Social Needs: No Data to Display Exam Narrative Exam Narrative: General: Middle-aged female who A&Ox1, sitting up in bed, no dyspnea today HEENT: EOMI, MMM Cardiovascular: RRR, + ALEX Lungs: Rales B bases Gastrointestinal: soft, nontender, nondistended Extremities: no edema/clubbing/cyanosis BLEs Psych Mental Status: mental status grossly normal (Her normal is A&Ox1) Speech and Movement: speech and movement normal Mood: congruent mood Affect: normal affect DS: Data Vitals/I&O Vitals and I&O: Vital Signs Temperature 36.8 C 04/17/23 11:40 Temperature Source Tympanic 04/17/23 11:40 Pulse 92 H 04/17/23 11:40 Pulse Rhythm Irregular 04/16/23 22:57 Respiratory Rate 18 04/17/23 11:40 Respiratory Effort Incrsd Work of Breathing 04/17/23 08:28 Respiratory Depth Shallow 04/17/23 08:28 Respiratory Pattern Normal 04/17/23 08:28 Blood Pressure 94/64 L 04/17/23 11:40 Blood Pressure Position Supine 04/16/23 12:38 Pulse Oximetry 100 04/17/23 11:40 Oxygen Delivery Method Room Air 04/17/23 11:40 Oxygen Flow Rate 0 04/17/23 11:40 Pain Level 0 04/17/23 11:40 Comment vitals reported to CC 04/17/23 04:10 Intake & Output 04/16/23 04/17/23 04/17/23 23:59 11:59 23:59 Intake Total Balance Weight 57.606 kg Intake: IV Other: Urine Appearance Clear Data Completed and Pending Completed studies during hospitalization [Text1]: CXR: No acute findings Echo 04/16/23: LA/LV moderately dilated, RA/RV normal sizes. Akinesis of the interventricular septum with parodoxical motion superimposed on moderate global hypokinesis, EF 30-35%. Normal RV function. Calcific aortic stenosis with calculated BEATRIZ of 0.65 cm2 ( critical ) which is out of proportion to the peak gradient of 20.5 mmHg and mean gradient of 11.1 mmHg. The aortic stenosis is probably severe to critical, associated with a low flow state. Clinical or dobutamine echo correlation suggesed. Moderate to severe mitral annular calcification, mild MS, mild MR. Normal TV with trace TR,no phtn. No pericardial effusion. Compared to the previous echo of 06/06/2021, the LV function has dropped significantly. Labs on day of discharge: Labs from last 24 hours 04/17/23 04/16/23 04/16/23 06:54 16:30 12:49 Sodium 137 131 L Potassium 3.5 4.0 Chloride 101 95 L Carbon Dioxide 24.0 22.7 Anion Gap 12.0 H 13.3 H BUN 22 H 25 H Creatinine 1.7 H 2.3 H Est GFR (CKD-EPI 2020) 34.76 24.19 Glucose 62 L 129 H Calcium 8.0 L 8.2 L Magnesium 2.0 2.2 Total Bilirubin 0.4 AST 29 ALT 19 Alkaline Phosphatase 94 Troponin I < 50 < 50 NT-Pro-B Natriuret Pep 11936 H Total Protein 6.7 Albumin 2.1 L TSH 0.28 L Free T4 1.15 Valproic Acid 56.1 PFSH All Active Problems (Updated 04/18/23 @ 00:01 by WAYNE FOREMAN) Acute on chronic kidney failure (Acute) HFrEF (heart failure with reduced ejection fraction) (Chronic) Aortic stenosis, severe (Acute) Hypotension (Acute) Vomiting (Acute) Weight loss (Acute) Nicotine dependence, cigarettes, uncomplicated (Acute) Pulmonary emphysema (Acute) Coronary artery disease (Chronic) Personal history of nicotine dependence (Acute) Infected sebaceous cyst of skin (Acute) Pancreatic cyst (Acute) Aortic stenosis (Chronic) AVANI (obstructive sleep apnea) (Acute) Left bundle branch block (Acute) Per [facility] states that is not on her current list. Per [facility] she does see a boom tender GERD (gastroesophageal reflux disease) (Acute) Hyperlipemia (Acute) CHF (congestive heart failure) (Chronic) Diabetes mellitus type II, controlled (Acute) Hypothyroid (Chronic) Secondary Parkinson disease (Acute) Cognitive impairment (Acute) Schizoaffective disorder (Chronic) Diastolic dysfunction (Chronic) Apneic episode (Acute) Acute metabolic encephalopathy (Acute) Bowel obstruction (Acute) Anemia (Chronic) Chronic constipation (Acute) Neuroleptic-induced parkinsonism (Acute) Well woman exam with routine gynecological exam (Acute) Medical History At risk for aspiration Gastroparesis, Food contents despite 8 hour NPO hold before procedure. 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 isn't allowed to have items in her room when she is manic. Myocardial infarction 2018 per PRACTICE ARCHITECT at [facility]- has not seen cards Protein-calorie malnutrition, mild Dehydration Community acquired pneumonia DVT prophylaxis Rib pain on right side Electrolyte abnormality Hyperthyroidism Pancreatitis COPD (chronic obstructive pulmonary disease) Alcoholism in remission Acute kidney injury Tobacco dependence History of alcohol abuse Bipolar 1 disorder Diabetic neuropathy Heart murmur Subdural hematoma small right September 2018 2/2 mechanical fall Surgical History History of esophagogastroduodenoscopy (EGD) (~11/2022) biopsies taken S/P thoracotomy H/O abdominal surgery Social History Smoking/Tobacco Use Status: Former Tobacco Use Quit Date: 11/07/21 Tobacco: How many years used: 36 Smoking risk assessment performed?: Yes Alcohol Intake: former Drug use: Current Sobriety Substance use type: does not use Details: Nicotrol inhalers Housing: long term current occupation: Disabled. Lives at [facility] Seatbelt use: always Additional Social history: Resident @ [facility] H&R Time Spent with Patient Time Spent with Patient: 45-69 minutes Time was spent: preparing to see the patient(eg.review tests), obtaining and/or reviewing separately otained hiistory, ordering medications,tests, procedures, referring, communicating with other health child care coordinator, indepentently interpreting results, counseling the patient and care coordination
--- NOTE | 2023-04-17 14:24 | CMPROGNOTE_ITS ---
Date of service: 04/17/23 Time of Service: 14:24 Care Management Progress Note Progress Note Text Progress Note Text: Danette was accepted in transfer to [facility], she will transport via EMS, coordinated by the nursing document control supervisor. SDOH(Care Management) Screening Will the Patient Participate in the Screening?: Yes Do you worry about having a steady place to live?: no Problems where you live: no known problems In the past 12 months, have you had to go without electric, gas, oil or water in your home?: no Have you or anyone in your house had to go without enough food to eat?: no Has lack of transportation kept you from medical appointments or from doing things needed for daily living?: no Has anyone in your support network made you feel unsafe for any reason?: no
== END 2023-04-17 14:27 | disposition short-term general hospital (02) | DRG 307 ==
LOC: ER 15:36 → MS 16:34
PROVIDERS: Admitting Provider Internal Medicine; Emergency Provider Emergency Medicine; PCP Nurse Practitioner Gerontology; Visit Provider Internal Medicine
DX: I35.0 Nonrheumatic aortic (valve) stenosis (principal); I50.22 Chronic systolic (congestive) heart failure; G21.11 Neuroleptic induced parkinsonism; E44.1 Mild protein-calorie malnutrition; N17.9 Acute kidney failure, unspecified; I95.89 Other hypotension; I25.10 Atherosclerotic heart disease of native coronary artery without angina pectoris; F25.9 Schizoaffective disorder, unspecified; G47.33 Obstructive sleep apnea (adult) (pediatric); R63.4 Abnormal weight loss; Z68.21 Body mass index [BMI] 21.0-21.9, adult; F17.210 Nicotine dependence, cigarettes, uncomplicated; I44.7 Left bundle-branch block, unspecified; J43.9 Emphysema, unspecified; K21.9 Gastro-esophageal reflux disease without esophagitis; E78.5 Hyperlipidemia, unspecified; T43.595A Adverse effect of other antipsychotics and neuroleptics, initial encounter; R41.89 Other symptoms and signs involving cognitive functions and awareness; D64.9 Anemia, unspecified; K59.09 Other constipation; E11.22 Type 2 diabetes mellitus with diabetic chronic kidney disease; N18.9 Chronic kidney disease, unspecified
CPT/HCPCS: 123; 36415; 80048; 80053; 82805; 93005; 94640; 99222; 99285; 00123; 71045; 80164; 83735; 83880; 84439; 84443; 84484; 85025; 85610; 85730; 93010; 94664; 99213; 99239; J1644

== ENCOUNTER 2023-05-11 18:21 | Outpatient (REF) | payer SELFPAY ==
[2023-05-11 18:16] LABS: HCT 27.3 % (36.0-46.0); MCH 31.8 pg (27.0-33.0); MCV 97 fL (80-95); MPV 11.5 fL (8.0-11.0); RBC 2.83 10^6/uL (3.93-5.22); RDW 17.2 % (11.7-14.6); RDW-SD 60.3 fL; WBC 16.51 10^3/uL (4.4-10.8)
[2023-05-11 18:28] LABS: Iron 17 ug/dL (50-170); Total Iron Binding Capacity 94 ug/dL (250-450); Transferrin Sat 18 % (15-50)
[2023-05-11 18:34] LABS: Hemoglobin A1C 5.6 % (<5.7)
[2023-05-11 18:39] LABS: Absolute Lymphocyte Count 1.49 10^3/uL (1.2-3.4); Bands % 35
[2023-05-11 18:40] LABS: Anisocytosis 1+; Diff Comment Manual Differential; Metamyelocytes % 2; Myelocytes % 1; Platelet Count 240 10^3/uL (130-400)
[2023-05-11 18:49] LABS: Absolute Neutrophil Count 12.71 10^3/uL (1.2-6.7)
[2023-05-11 18:50] LABS: Absolute Monocyte Count 1.82 10^3/uL (0.1-0.8); Poikilocytes 1+
[2023-05-11 18:51] LABS: Vitamin D 25 Total 50.6 ng/mL (30-100)
[2023-05-11 18:56] LABS: ALT 19 U/L (14-59); AST 51 U/L (15-37); Albumin 1.6 g/dL (3.4-5.0); Alkaline Phosphatase 61 U/L (46-116); Anion Gap 11.1 mmol/L (3-11); BUN 32 mg/dL (7-18); Bilirubin, Total 0.9 mg/dL (0.2-1.0); CO2 27.9 mmol/L (21.0-32.0); CREATININE 2.3 mg/dL (0.55-1.02); Calcium 8.4 mg/dL (8.5-10.1); Chloride 93 mmol/L (98-107); Estimated GFR 24.19 (mL/min/1.73m2); Ferritin 505 ng/mL (8-252); Folate > 20.0 ng/mL (8.6-20.0); Glucose 164 mg/dL (74-106); Magnesium 1.9 mg/dL (1.8-2.4); Potassium 3.1 mmol/L (3.5-5.1); Sodium 132 mmol/L (136-145); TSH (W/Ref FT4) 2.02 uIU/mL (0.36-3.74); Total Protein 5.8 g/dL (6.4-8.2); Vitamin B12 937 pg/mL (193-986)
[2023-05-11 20:04] LABS: NT-proBNP > 35000 pg/mL (<300)
== END 2023-05-11 18:22 | disposition home or self-care (01) ==
LOC: LBN 18:21
PROVIDERS: PCP Nurse Practitioner Gerontology; Visit Provider Nurse Practitioner Gerontology
DX: I50.9 Heart failure, unspecified (principal); J44.9 Chronic obstructive pulmonary disease, unspecified; E03.9 Hypothyroidism, unspecified; J69.0 Pneumonitis due to inhalation of food and vomit; G89.4 Chronic pain syndrome; E08.649 Diabetes mellitus due to underlying condition with hypoglycemia without coma
CPT/HCPCS: 80053; 82306; 82607; 82728; 82746; 83036; 83540; 83550; 83735; 83880; 84443; 85025